=== PATIENT | female | born 1950 | race Caucasian/White ===

== ENCOUNTER → 2016-08-06 | Outpatient (CLI) | payer BC ==
[~2016-08-06] MED LIST: FLM4 PO; LEVO1TAB34 PO; OXYC-57 PO; SYMIN/8045 INH
[2016-08-06 09:43] LABS: BASO % 0.1 %; BASO ABS # 0.01 K/uL (0-0.2); COMPLETE YES; EOS % 1.3 %; HEMATOCRIT 41.2 % (37-47); IG% 0.2 %; LYMPH % 17.9 %; LYMPH ABS # 1.57 K/uL (1.2-3.4); MEAN CELL VOLUME 90.2 fL (80-100); MEAN CORPUSCULAR HEMOGLOBIN 30.4 pg (25-34); MEAN CORPUSCULAR HGB CONC 33.7 g/dl (32-36); MEAN PLATELET VOLUME 11.3 fL (7.4-10.4); MONO % 6.4 %; NEUT % 74.1 %; PLATELET COUNT 204 K/uL (130-400); RED BLOOD COUNT 4.57 M/uL (4.2-5.4); WHITE BLOOD COUNT 8.78 K/uL (4.8-10.8)
--- NOTE | 2016-08-06 10:02 | DIAGNOSTIC IMAGING REPORT ---
KUB CLINICAL HISTORY: N20.0 [id number] nephrocalcinosis COMPARISON STUDY: 11/10/2014 FINDINGS: Stable unchanged left renal nephrocalcinosis. No significant right renal calcifications. Nonobstructive bowel pattern. Unchanging right upper quadrant benign calcification. Unchanging degenerative change of the sacroiliac joints as well as symphysis pubis. IMPRESSION: Stable left renal nephrocalcinosis. Electronically signed by: Fuetnes San M.D. 08/06/2016 10:00 AM Dictated Date/Time: 08/06/2016 9:59 AM
[2016-08-06 10:26] LABS: ALT/SGPT 25 U/L (12-78); AST/SGOT 20 U/L (15-37); BLOOD UREA NITROGEN 11 mg/dl (7-18); CALCIUM 8.8 mg/dl (8.5-10.1); CARBON DIOXIDE 29 mmol/L (21-32); CHLORIDE 107 mmol/L (98-107); CHOLESTEROL 161 mg/dl (0-200); GLUCOSE 93 mg/dl (70-99); MAGNESIUM 2.2 mg/dl (1.8-2.4); POTASSIUM 3.8 mmol/L (3.5-5.1); SODIUM 142 mmol/L (136-145); TRIGLYCERIDES 77 mg/dl (0-150); VERY LOW DENSITY LIPOPROT CALC 15 mg/dl
[2016-08-06 10:35] LABS: ALB/GLOB RATIO 0.9 (0.9-2); ALKALINE PHOSPHATASE 98 U/L (45-117); CHOLESTEROL/HDL RATIO 3.4; HDL CHOLESTEROL 48 mg/dl
== END | disposition home or self-care (01) ==
LOC: C.RAD 08:27
PROVIDERS: ATTEND Nurse Practitioner Family
DX: R53.83 Other fatigue (principal); J44.9 Chronic obstructive pulmonary disease, unspecified; E78.5 Hyperlipidemia, unspecified; E66.01 Morbid (severe) obesity due to excess calories; Z11.59 Encounter for screening for other viral diseases; N20.0 Calculus of kidney

== ENCOUNTER → 2016-10-04 | Outpatient (CLI) | payer BC | END | disposition home or self-care (01) | LOC: C.PAPS 13:01 | PROVIDERS: ATTEND Obstetrics & Gynecology | DX: Z01.419 Encounter for gynecological examination (general) (routine) without abnormal findings (principal) ==

== ENCOUNTER → 2016-10-08 | Outpatient (CLI) | payer BC ==
--- NOTE | 2016-10-08 14:43 | MAMMOGRAPHY REPORT ---
BILATERAL DIGITAL SCREENING MAMMOGRAM WITH CAD: 10/08/2016 CLINICAL HISTORY: Routine screening. Patient has no complaints. TECHNIQUE: Bilateral CC and MLO views were obtained. Current study was also evaluated with a Compute r Aided Detection (CAD) system. COMPARISON: Comparison is made to exams dated: 10/04/2015 mammogram, 09/29/2014 mammogram, 03/02/2014 becca mogram, 01/19/2013 mammogram, 03/17/2012 mammogram, and 03/11/2011 mammogram - [facility] enter. BREAST COMPOSITION: There are scattered areas of fibroglandular density in both breasts. FINDINGS: The parenchymal pattern is similar to prior mammograms. No new suspicious mass, designer architect ural distortion or cluster of suspicious microcalcifications is seen in either breast. IMPRESSION: ACR BI-RADS CATEGORY 2: BENIGN There is no mammographic evidence of malignancy. A 1 year screening mammogram is recommended. The pa tient will receive written notification of the results. Approximately 10% of breast cancers are not detected with mammography. A negative mammographic report should not delay biopsy if a clinically suggestive mass is present. Latasha Bettencourt M.D. ay/:10/08/2016 13:47:52 Call Worker Person: Emily SALAZAR(R)(M), [facility] letter sent: Normal 1/2 BI-RADS Code: ACR BI-RADS Category 2: Benign
== END | disposition home or self-care (01) ==
LOC: C.MAMM 08:37
PROVIDERS: ATTEND Internal Medicine
DX: Z12.31 Encounter for screening mammogram for malignant neoplasm of breast (principal)

== ENCOUNTER 2021-01-29 11:40 | Inpatient (IN) ==
[2021-01-29] MEDS ORDERED: SODIUM CHLORIDE 0.9% 1000ML 1,000 ML IV ONE ×2 (11:59→12:33)
[2021-01-29] MEDS ORDERED: ONDANSETRON INJ 2 MG/ML 2 ML VIAL IV STA (11:59)
[2021-01-29 12:26] LABS: Basophils # (auto) 0.02 K/uL (0-0.2); Basophils % (auto) 0.1 %; Eosinophils # (auto) 0.13 K/uL (0-0.5); Eosinophils % (auto) 0.9 %; Hematocrit (blood only) 38.7 % (37-47); Hemoglobin 12.4 g/dL (12.0-16.0); Immature Granulocytes # (auto) 0.04 K/uL (0.00-0.02); Immature Granulocytes % (auto) 0.3 %; Lymphocytes # (auto) 2.07 K/uL (1.2-3.4); Lymphocytes % (auto) 14.3 %; Mean Corpuscular Hemoglobin 29.9 pg (25-34); Mean Corpuscular Volume 93.3 fL (80-100); Monocytes # (auto) 1.14 K/uL (0.11-0.59); Monocytes % (auto) 7.9 %; Neutrophils # (auto) 11.05 K/uL (1.4-6.5); Neutrophils % (auto) 76.5 %; Platelet Count 202 K/uL (130-400); RDW Coefficient of Variation 14.1 % (11.5-14.5); RDW Standard Deviation 48.2 fL (36.4-46.3); Red Blood Count 4.15 M/uL (4.2-5.4); White Blood Count 14.45 K/uL (4.8-10.8)
[2021-01-29 12:27] LABS: iSTAT Creatinine 3.8 mg/dl (0.6-1.3); iSTAT Hemoglobin 11.9 g/dl (12.0-16.0); iSTAT Ionized Calcium 1.17 mmol/l (1.12-1.32); iSTAT Potassium 4.2 mmol/L (3.3-5.0)
[2021-01-29 12:40] LABS: Partial Thromboplastin Ratio 0.9; Partial Thromboplastin Time 23.1 Seconds (21.0-31.0); Prothrombin Time 10.3 Seconds (9.0-12.0)
--- NOTE | 2021-01-29 12:43 | XRay Report ---
XR chest 1V portable HISTORY: SEPSIS COMPARISON: Chest 10/19/2019. FINDINGS: The lungs are clear. The heart is normal in size. No pleural effusions. No pneumothorax. Ca lcified granuloma within the right lung base remains unchanged. The lungs are mildly hyperexpanded. P rior cholecystectomy. IMPRESSION: No acute process. ACT 112: Negative or not required by law. Electronically signed by: Jam Lewis M.D. 01/29/2021 12:41 PM
[2021-01-29 12:45] LABS: Alanine Aminotransferase 26 U/L (12-78); Albumin Level 2.9 gm/dl (3.4-5.0); Aspartate Aminotransferase 28 U/L (15-37); BUN Creatinine Ratio 16.3 (10-20); Blood Urea Nitrogen 59 mg/dl (7-18); Calcium 9.9 mg/dl (8.5-10.1); Carbon Dioxide 34 mmol/L (21-32); Chloride 93 mmol/L (98-107); Glucose 109 mg/dl (70-99); Magnesium 1.7 mg/dl (1.8-2.4); Potassium 3.9 mmol/L (3.5-5.1); Sodium 133 mmol/L (136-145)
[2021-01-29 12:53] LABS: Albumin Globulin Ratio 0.7 (0.9-2); Alkaline Phosphatase 66 U/L (45-117); Bilirubin,Total 0.5 mg/dl (0.2-1); Globulin 4.3 gm/dl (2.5-4.0); Total Protein 7.2 gm/dl (6.4-8.2); Troponin I 0.159 ng/ml (0-0.045)
[2021-01-29] MEDS ORDERED: PIPERACILLIN/TAZOBACTAM 4.5 GM/120 ML BAG IV ONE (13:14)
--- NOTE | 2021-01-29 13:26 | CT Scan Report ---
CT OF THE ABDOMEN AND PELVIS WITHOUT CONTRAST CLINICAL HISTORY: Abdominal pain, nausea and vomiting. COMPARISON STUDY: CT of the abdomen and pelvis March 10, 2020. TECHNIQUE: Axial images of the abdomen and pelvis were obtained without IV contrast. Images were revi ewed in the axial, sagittal, and coronal planes. Automated exposure control was utilized for the magui dy. A dose lowering technique was utilized adhering to the principles of ALARA. FINDINGS: Visualized portions of the lung bases demonstrate mild multifocal groundglass opacities. Th ere is a calcified granuloma within the right lower lobe. Evaluation of the abdomen and pelvis is sub optimal on this unenhanced exam. A small amount of pneumoperitoneum is noted. In addition, there is e xtensive pneumatosis of numerous small bowel loops. The proximal to mid small bowel is moderately dil ated and fluid-filled. A well-defined transition point is not identified however the findings favor a n underlying small bowel obstruction. There are postoperative findings from a right hemicolectomy. Th e stomach is mildly distended and fluid-filled. There are calcified cannula was within the spleen. Mi ld dilatation of the common bile duct is likely related to cholecystectomy. Small bilateral renal rodger culi measure up to 5 mm. There are no ureteral calculi. There is a cyst within the midpole of the lef t kidney. A hyperdense 1.3 cm lesion within the upper pole of the left kidney favors a hyperdense cys t when correlating with prior contrast enhanced CT. There is extensive colonic diverticulosis without evidence for acute diverticulitis. There is no free fluid. There is no abscess. Nodularity of the le ft adrenal gland is unchanged. No acute fracture or suspicious lesion is identified within visualized skeletal structures. IMPRESSION: 1. Excessive pneumatosis of multiple small bowel loops with small amount of associated pneumoperitone um. Although pneumatosis is nonspecific, the findings are highly suggestive of small bowel ischemia w ith bowel perforation. Surgical consultation is recommended. Moderately dilated fluid-filled proximal to mid small bowel favors an underlying small bowel obstruction although a discrete transition point is not identified. Findings discussed with Dr. Cochran at time of dictation. 2. Mild groundglass opacities within the lower lungs which favor an infectious process or aspiration. 3. Bilateral nephrolithiasis. No ureteral calculi. No hydronephrosis. ACT 112: Negative or not required by law. Electronically signed by: Edson Barreto M.D. 01/29/2021 1:24 PM
--- NOTE | 2021-01-29 13:38 | Anesthesiology Consultation ---
Date of Service January 29, 2021 Assessment & Plan (1) Encounter for pre-operative examination: Consults Requested none History Surgery Operation Date: 01/29/21 12:25 Proposed Procedures p Exploratory Laparotomy possible Bowel Resection - Luis Armando Cabrera MD, FACS Height/Weight Height: 5 ft 1 in Weight: 50.9 kg Allergies Allergy/AdvReac Type Severity Reaction Status Date / Time latex Allergy Unknown _ Verified 01/29/21 13:14 leflunomide AdvReac Unknown Unknown Verified 01/29/21 13:14 Medications Home Medications Medication Instructions Recorded Confirmed Last Taken budesonide-formoterol HFA 160 1 puff INHALATION DIRECTED 10/19/19 01/29/21 03/10/20 mcg-4.5 mcg/actuation aerosol inhaler (Symbicort) hydroxychloroquine 200 mg tablet 200 mg PO DAILY 03/10/20 01/29/21 03/10/20 ergocalciferol (vitamin D2) 1,250 50,000 unit PO .QTUESDAY 01/29/21 01/29/21 Unknown mcg (50,000 unit) capsule prednisone 10 mg tablet 10 mg PO DAILY 01/29/21 01/29/21 Unknown pregabalin 75 mg capsule 75 mg PO DAILY 01/29/21 01/29/21 Unknown Active Medications Generic Name Dose Route Start Last Admin Trade Name Freq PRN Reason Stop Dose Admin Piperacillin Sod/Tazobactam Sod 4.5 gm in 120 mls @ 240 mls/hr 01/29/21 13:14 01/29/21 13:22 Zosyn IV 01/29/21 13:43 240 mls/hr NOW ONE Administration Past Medical History Medical History Chronic obstructive asthma Heart disease Kidney stones Mixed connective tissue disease Past Family History Family History Mother Squamous cell carcinoma Uterine cancer Breast cancer Hypertension Father Squamous cell carcinoma Breast cancer Hypertension Diabetes Cardiac disorder Family/Other Uterine cancer Breast cancer Denies family history of Ovarian cancer Colorectal cancer Past Surgical History Surgical History History of ankle surgery History of bowel resection X 2 AT [facility] [place]/P PERFORATION AFTER COLONOSCOPY History of lithotripsy renal S/P cataract surgery S/P cholecystectomy Social History Smoking Status: Never smoker Hx Alcohol Use: No Physical Exam Vital Signs Last Vital Signs Temp 97.5 F L 01/29/21 11:44 Pulse 104 H 01/29/21 13:12 Resp 16 01/29/21 13:12 BP 99/58 L 01/29/21 13:12 Pulse Ox 90 01/29/21 12:10 Testing Laboratory Results 01/29/21 12:08 01/29/21 12:08 PT 10.3 Seconds (9.0-12.0) 01/29/21 12:08 INR 1.0 (0.9-1.1) 01/29/21 12:08 APTT 23.1 Seconds (21.0-31.0) 01/29/21 12:08 01/29/21 12:15 POC Glucose (other) 111 H Electrocardiogram Date: 01/29/21 Findings: no NSR @ (tachycardic 128) Sinus tachycardia Possible Left atrial enlargement Left axis deviation Inferior infarct , age undetermined Anterior infarct (cited on or before 12-JAN-2020) Abnormal ECG When compared with ECG of 12-JAN-2020 16:17, Premature atrial complexes are no longer Present Inferior infarct is now Present Chest X-Ray Date: 01/29/21 Findings: + NAD Stress Test Date: 08/19/18 Type: DSE Findings: + WNL Resting EF: 60-65 Resting LV Function: normal Valvular Disease: no significant valvular disease
[2021-01-29] MEDS ORDERED: PROPOFOL IV EMULSION 10 MG/ML 20 ML VIAL IV ONE (13:58)
[2021-01-29] MEDS ORDERED: fentaNYL citrate 100 MCG/2 ML VIAL ONE ×2 (13:58→16:48)
[2021-01-29] MEDS ORDERED: LIDOCAINE 2% 2 ML VIAL/AMP(20MG/ML) INFIL ONE (13:58)
[2021-01-29] MEDS ORDERED: GLYCOPYRROLATE 0.2 MG/ML VIAL ONE (13:58)
[2021-01-29] MEDS ORDERED: MIDAZOLAM HCL 1 MG/ML 2ML VIAL ONE (13:58)
[2021-01-29] MEDS ORDERED: SUCCINYLCHOLINE CHLORIDE 20 MG/ML 10 ML VIAL IV ONE (13:58)
[2021-01-29] MEDS ORDERED: ONDANSETRON INJ 2 MG/ML 2 ML VIAL ONE (13:58)
[2021-01-29] MEDS ORDERED: DEXAMETHASONE SOD INJ 4 MG/ML VIAL ONE (13:58)
[2021-01-29] MEDS ORDERED: NEOSTIGMINE METHYLSULFATE 1 MG/ML 10ML VIAL ONE (13:58)
[2021-01-29] MEDS ORDERED: ACETAMINOPHEN 1000 MG/100 ML IV IV ONE ×2 (13:59→16:38)
[2021-01-29] MEDS ORDERED: SUGAMMADEX SODIUM 200 MG/2 ML VIAL IV ONE (13:59)
--- NOTE | 2021-01-29 14:07 | History & Physical Report ---
Date of Service January 29, 2021 Assessment & Plan (1) Bowel perforation: Plan: Patient with evidence of bowel perforation and sepsis Significantly tachycardic and hypotensive Severe abdominal pain with CT findings of pneumatosis and perforation Elevated white blood count with significantly elevated BUN and creatinine indicating acute renal failure I do believe the patient requires emergency operation with possible bowel resection and possible enterostomy versus colostomy She will require admission to the intensive care unit which has been discussed with their team I have also discussed this with the patient's sister Leslie History of Present Illness Primary Care Provider: Neo Barajas MD 70-year-old female presenting to the emergency room with diffuse abdominal pain significantly tachycardic hypotensive with her blood pressure being 78/54 increased lactic acid BUN and creatinine 59/3.6 She underwent CAT scan showing significantly dilated small bowel with diffuse pneumatosis which apparently she has had somewhat in the past but also with evidence of free air Her white blood cell count is 14.4 with a lactic acid of 3.5 Patient has had prior colonoscopy back in appears to be September 2019 with perforation subsequent operation right colectomy She then developed 1 to 2 months later abdominal distention with dilated small bowel and pneumatosis with exploratory laparotomy All of this was done at [place] -at that point-they did explore her abdomen but did not find any specific obstruction or perforation She did have problems the GI motility with chronic dilated small bowel requiring TPN for an extended period of time Allergies Allergy/AdvReac Type Severity Reaction Status Date / Time latex Allergy Unknown _ Verified 01/29/21 13:14 leflunomide AdvReac Unknown Unknown Verified 01/29/21 13:14 Home Medications Medication Instructions Recorded Confirmed Type budesonide-formoterol HFA 160 1 puff INHALATION DIRECTED 10/19/19 01/29/21 History mcg-4.5 mcg/actuation aerosol inhaler (Symbicort) hydroxychloroquine 200 mg tablet 200 mg PO DAILY 03/10/20 01/29/21 History ergocalciferol (vitamin D2) 1,250 50,000 unit PO .QTUES01/29/21 01/29/21 History mcg (50,000 unit) capsule prednisone 10 mg tablet 10 mg PO DAILY 01/29/21 01/29/21 History pregabalin 75 mg capsule 75 mg PO DAILY 01/29/21 01/29/21 History Past Med/Surg History Medical History Chronic obstructive asthma Heart disease Kidney stones Mixed connective tissue disease Surgical History History of ankle surgery History of bowel resection X 2 AT [facility] [place] PERFORATION AFTER COLONOSCOPY History of lithotripsy renal S/P cataract surgery S/P cholecystectomy Family History Mother Squamous cell carcinoma Uterine cancer Breast cancer Hypertension Father Squamous cell carcinoma Breast cancer Hypertension Diabetes Cardiac disorder Family/Other Uterine cancer Breast cancer Denies family history of Ovarian cancer Colorectal cancer Social History (Updated 01/18/21 @ 11:18 by Ally Cannon) Smoking Status: Never smoker Hx Alcohol Use: No Preferred Language: Georgian Feels Safe at Home: Yes Review of Systems All systems reviewed & are unremarkable except as noted in HPI & below Physical Exam Constitutional: + acute distress and + ill appearing Eyes: + anicteric sclerae Respiratory: normal respiratory effort; no respiratory distress and no labored breathing Cardiovascular: Rate/Rhythm: + tachycardic Gastrointestinal (Abdomen): Inspection/Auscultation: + abdomen distended Patient shows moderate distention with diffuse abdominal pain especially to deep palpation Evidence of peritoneal irritation Musculoskeletal: Head/Neck/Chest: head atraumatic Skin: Patient shows some areas of mottling in her extremities as well as very cool extremities Neurologic: awake Psychiatric: Orientation: alert Results & Data ([facility]) Vital Signs (Past 12 Hours) Vital Signs Temp Pulse Resp BP BP Pulse Ox 01/29/21 13:30 127 H 22 101/58 L 01/29/21 13:12 104 H 16 99/58 L 01/29/21 12:47 97/53 L 01/29/21 12:10 108 H 19 78/54 L 90 01/29/21 11:59 113 H 24 93 01/29/21 11:55 124 H 21 84/44 L 94 01/29/21 11:44 36.4 C L 74 18 84/49 L 98 Laboratory Results I have reviewed her laboratories Diagnostic Findings I have reviewed her CAT scan-this shows evidence of significantly dilated small bowel with pneumatosis and pneumoperitoneum
--- NOTE | 2021-01-29 14:25 | Critical Care Consultation ---
Date of Consultation January 29, 2021 Assessment & Plan (1) Bowel perforation: Reason Critically Ill: 70 year old female w/ PMHx of mixed connective tissue disease, right hemicolectomy (colonoscopy in 09/2019 led to perforation of proximal colon), and subsequent adhesions, pneumatosis intestinalis, and partial SBO who presents w/ multiple episodes of nausea and vomiting x 1 day. She presents to the ICU because CT abd showed possible small bowel perforation. Patient is currently in the OR emergently for ex-lap. Neuro - [facility] ICU: negative Cardiac - shock, mild hypovolemic vs septic Low MAP of 57 (87/44) at ED admission, since improved; no pressors required Tachycardic to 100s-120s at ED arrival, since resolved Slight leukocytosis 14.45 and elevated lactate 3.5 supports sepsis. Source may be from bowel obstruction. Resuscitated w/ 2L of NSS. IV Zosyn for empiric GI prophylaxis. elevated troponin most likely demand ischemia. trend trop q6h until peaked ecg reviewed; poor R wave progression is not new from prior ecg. Slight leftward shift of axis. Respiratory - satting well on 2L nasal cannula asthma continue home Symbicort GI - NPO while awaiting OR Small bowel obstruction vs ischemic bowel vs bowel perforation CT abd: "Excessive pneumatosis of multiple small bowel loops with small amount of associated pneumoperitoneum. Although pneumatosis is nonspecific, the findings are highly suggestive of small bowel ischemia with bowel perforation." OR for exlap. Update: No evidence of intra-abd infection or bowel perforation. Adhesions lysed. RENAL/LYTES - Slight hyponatremia 133 at ED arrival. Follow BMP Replace lytes as needed. acute kidney injury May be 2/2 ATN from transient shock state. Also considered prerenal azotemia and lower suspicion for obstruction. Defer FeNa and renal US at this time. Gentle hydration. Follow BMP. - [facility] - No known hx of DM or thyroid disease. ICU hyperglycemia protocol. mixed connective tissue disease, chronic Chronic hydroxychloroquine 200 mg PO daily, prednisone 10 mg PO daily, and Lyrica 75 mg PO daily for mixed connective tissue disease. HEME - Stable H/H. Follow CBC ID - Afebrile. Follow CBC and clinically. Continue empiric Zosyn for GI ppx. LINES/IV ACCESS - PIVs intact. DVT PROPHYLAXIS - SCDs. Lovenox ppx daily, starting tonight (2) Mixed connective tissue disease: (3) Restrictive lung disease: (4) Chronic obstructive asthma: Supervising Physician Co-Signing Physician Notes Dr. Castillo was resident physician during care of patient. I separately evaluated patient for huston portions of the history and the exam. I was present during the critical portion of medical decision making, and I discussed the case with the resident. I generally agree with the findings and plan. Patient seen in the PACU. Anticipate routine care NG to suction at this point, patient was mildly nauseated but hemodynamics appear reassuring. Patient has TAB secondary to profound dehydration we will continue antibiotics at this point per general surgery. Patient critically ill I have personally spent 45 minutes of critical care time in the direct management of this patient. This is a life/limb threatening event. This includes time spent evaluating patient, direct bedside care, chart review, placing orders, interpretation of diagnostic studies, discussion with consultants, patient, and/or family members regarding treatment decisions, as well as other required patient management activities. This time is exclusive of all separately billable procedures, and teaching time and separate from and in addition to any other critical care service time. History of Present Illness Reason for Consultation: possible bowel perforation Attending Physician: Dr. Luis Armando Cabrera History of Present Illness Ashia Ca is a 70 y/o female w/ PMHx of mixed connective tissue disease, multiple abdominal surgeries (including a right hemicolectomy, recurrent SBO, pneumatosis intestinalis and asthma who presents w/ intractable nausea and vomiting, epigastric burning/discomfort and some fatigue since yesterday. She presented w/ sepsis and likely possible small bowel per CT imaging. She is undergoing emergency ex-lap via general surgery. She did not take her AM medications this morning. She is unsure if she had similar prior symptoms as she has had nausea and vomiting occasionally. She tolerated a small amount of oral intake this AM. In the ED, she was hypotensive to 84/44 and 78/54 and was given 2 L of NSS boluses, no pressors required. She was examined by me prior to going to OR for ex-lap. Denies substance use. Patient's sister was at bedside and helped clarify some of the history. Patient had an exlap at [place] on 01/13/20 that revealed adhesions at the time. Allergies Allergy/AdvReac Type Severity Reaction Status Date / Time latex Allergy Unknown _ Verified 01/29/21 13:14 leflunomide AdvReac Unknown Unknown Verified 01/29/21 13:14 Home Medications Medication Instructions Recorded Confirmed Type budesonide-formoterol HFA 160 1 puff INHALATION DIRECTED 10/19/19 01/29/21 History mcg-4.5 mcg/actuation aerosol inhaler (Symbicort) hydroxychloroquine 200 mg tablet 200 mg PO DAILY 03/10/20 01/29/21 History ergocalciferol (vitamin D2) 1,250 50,000 unit PO .QTUESDAY 01/29/21 01/29/21 History mcg (50,000 unit) capsule prednisone 10 mg tablet 10 mg PO DAILY 01/29/21 01/29/21 History pregabalin 75 mg capsule 75 mg PO DAILY 01/29/21 01/29/21 History Patient History Medical History Chronic obstructive asthma Heart disease Kidney stones Mixed connective tissue disease Surgical History History of ankle surgery History of bowel resection X 2 AT [facility] [place] S/P PERFORATION AFTER COLONOSCOPY History of laparotomy (01/29/21) Exploratory laparotomy with lysis of adhesions. Dr. Cabrera 01/29/2021 History of lithotripsy renal S/P cataract surgery S/P cholecystectomy Family History Mother Squamous cell carcinoma Uterine cancer Breast cancer Hypertension Father Squamous cell carcinoma Breast cancer Hypertension Diabetes Cardiac disorder Family/Other Uterine cancer Breast cancer Denies family history of Ovarian cancer Colorectal cancer Social History Smoking Status: Former smoker Smoking End Date: 1990; Hx Alcohol Use: No Hx Substance Use: No Preferred Language: Yakut Communication Ability: Effective X Ray Nurse Required: No Beliefs That Will Affect Care: None marital status: Current Living Situation: Alone Other Information That Helps Us Care for You: No Feels Safe at Home: Yes Safety Concerns: Feels Safe At This Time Assistive Devices: Cane, Glasses and Walker Review of Systems Review of Systems: All systems reviewed & are unremarkable except as noted in HPI & below Constitutional: Denies fever, chills Cardiovascular: Denies chest pain Respiratory: Denies shortness of breath Gastrointestinal: Denies constipation, diarrhea. See HPI Genitourinary: Denies urinary symptoms including dysuria Musculoskeletal: Denies weakness, muscle aches/pain, joint aches/pain Neurological: Denies headache, numbness, tingling, focal weakness Physical Exam Physical Exam: General: Grossly A&O. NAD. Cooperative. Conversive. HEENT: Atraumatic, normocephalic. EOMI. No carotid bruits. Pulm: CTAB anteriorly. -wheezes, -rales, -rhonchi. No respiratory distress. Cardiac: RRR, +2/6 systolic murmur. Very slight LE edema. DP pulses intact. Slightly cooler extremities. Abdominal: Nondistended, soft. Mild discomfort to palpation epigastrium. No guarding. Msk: Frail habitus. + muscle atrophy. Integ: Faint ecchymoses on bilateral shins. Results & Data Results & Data ([facility]) Vital Signs (Past 12 Hours) Vital Signs Temp Pulse Resp BP BP Pulse Ox 01/29/21 13:30 127 H 22 101/58 L 01/29/21 13:12 104 H 16 99/58 L 01/29/21 12:47 97/53 L 01/29/21 12:10 108 H 19 78/54 L 90 01/29/21 11:59 113 H 24 93 01/29/21 11:55 124 H 21 84/44 L 94 01/29/21 11:44 36.4 C L 74 18 84/49 L 98 Laboratory Results wbc 14.45. Hb 12.4. coags appropriate. Na 133. Cr 3.64, compared to 1.17 in 06/2020. Lactate 3.5. Mag 1.7. trop 0.159. procalc 0.51. covid neg. BC pending. Cardiac Enzymes 01/29/21 Range/Units 12:08 AST 28 (15-37) U/L Troponin I 0.159 H* (0-0.045) ng/ml Coagulation 01/29/21 Range/Units 12:08 PT 10.3 (9.0-12.0) Seconds APTT 23.1 (21.0-31.0) Seconds CBC 01/29/21 Range/Units 12:08 WBC 14.45 H (4.8-10.8) K/uL RBC 4.15 L (4.2-5.4) M/uL Hgb 12.4 (12.0-16.0) g/dL Hct 38.7 (37-47) % Plt Count 202 (130-400) K/uL Neut # (Auto) 11.05 H (1.4-6.5) K/uL Lymph # (Auto) 2.07 (1.2-3.4) K/uL [place] # (Auto) 1.14 H (0.11-0.59) K/uL Eos # (Auto) 0.13 (0-0.5) K/uL Baso # (Auto) 0.02 (0-0.2) K/uL Comprehensive Metabolic Panel 01/29/21 Range/Units 12:08 Sodium 133 L (136-145) mmol/L Potassium 3.9 (3.5-5.1) mmol/L Chloride 93 L (98-107) mmol/L Carbon Dioxide 34 H (21-32) mmol/L BUN 59 H (7-18) mg/dl Creatinine 3.64 H (0.6-1.2) mg/dl Glucose 109 H (70-99) mg/dl Calcium 9.9 (8.5-10.1) mg/dl AST 28 (15-37) U/L ALT 26 (12-78) U/L Alkaline Phosphatase 66 (45-117) U/L Total Protein 7.2 (6.4-8.2) gm/dl Albumin 2.9 L (3.4-5.0) gm/dl Intake and Output 01/29/21 01/29/21 01/29/21 06:59 14:59 22:59 Other: Weight 50.9 kg 50.9 kg Weight Measurement Method Built in [facility] Patient Weight 01/30/21 06:59 Weight 50.9 kg Diagnostic Findings Chest X-Ray 01/29/21 11:59 XR chest 1V portable HISTORY: SEPSIS COMPARISON: Chest 10/19/2019. FINDINGS: The lungs are clear. The heart is normal in size. No pleural effusions. No pneumothorax. Calcified granuloma within the right lung base remains unchanged. The lungs are mildly hyperexpanded. Prior cholecystectomy. IMPRESSION: No acute process. ACT 112: Negative or not required by law. Electronically signed by: Jam Lewis M.D. 01/29/2021 12:41 PM Abdomen/Pelvis CT 01/29/21 12:52 CT OF THE ABDOMEN AND PELVIS WITHOUT CONTRAST CLINICAL HISTORY: Abdominal pain, nausea and vomiting. COMPARISON STUDY: CT of the abdomen and pelvis March 10, 2020. TECHNIQUE: Axial images of the abdomen and pelvis were obtained without IV contrast. Images were reviewed in the axial, sagittal, and coronal planes. Automated exposure control was utilized for the study. A dose lowering technique was utilized adhering to the principles of ALARA. FINDINGS: Visualized portions of the lung bases demonstrate mild multifocal groundglass opacities. There is a calcified granuloma within the right lower lobe. Evaluation of the abdomen and pelvis is suboptimal on this unenhanced exam. A small amount of pneumoperitoneum is noted. In addition, there is extensive pneumatosis of numerous small bowel loops. The proximal to mid small bowel is moderately dilated and fluid-filled. A well-defined transition point is not identified however the findings favor an underlying small bowel obstruction. There are postoperative findings from a right hemicolectomy. The stomach is mildly distended and fluid-filled. There are calcified cannula was within the spleen. Mild dilatation of the common bile duct is likely related to cholecystectomy. Small bilateral renal calculi measure up to 5 mm. There are no ureteral calculi. There is a cyst within the midpole of the left kidney. A hyperdense 1.3 cm lesion within the upper pole of the left kidney favors a hyperdense cyst when correlating with prior contrast enhanced CT. There is extensive colonic diverticulosis without evidence for acute diverticulitis. There is no free fluid. There is no abscess. Nodularity of the left adrenal gland is unchanged. No acute fracture or suspicious lesion is identified within visualized skeletal structures. IMPRESSION: 1. Excessive pneumatosis of multiple small bowel loops with small amount of associated pneumoperitoneum. Although pneumatosis is nonspecific, the findings are highly suggestive of small bowel ischemia with bowel perforation. Surgical consultation is recommended. Moderately dilated fluid-filled proximal to mid small bowel favors an underlying small bowel obstruction although a discrete transition point is not identified. Findings discussed with Dr. Cochran at time of dictation. 2. Mild groundglass opacities within the lower lungs which favor an infectious process or aspiration. 3. Bilateral nephrolithiasis. No ureteral calculi. No hydronephrosis. ACT 112: Negative or not required by law. Electronically signed by: Edson Barreto M.D. 01/29/2021 1:24 PM ECG Additional Comments: Vent. Rate : 128 BPM Atrial Rate : 128 BPM P-R Int : 158 ms QRS Dur : 084 ms QT Int : 292 ms P-R-T Axes : 087 -58 079 degrees QTc Int : 426 ms Sinus tachycardia Possible Left atrial enlargement Left axis deviation Poor R wave progression, consider anterior PR vs. lead placement vs. LVH Abnormal ECG When compared with ECG of 12-JAN-2020 16:17, Premature atrial complexes are no longer Present Confirmed by Orestes Gillespie ([id number]) on 01/29/2021 2:37:50 PM Resident Activity Tracking Resident Involvement: Resident Care Provided Care Provided: Adult Hospital Medicine
--- NOTE | 2021-01-29 14:38 | Electrocardiogram Report ---
Test Reason : Blood Pressure : / mmHG Vent. Rate : 128 BPM Atrial Rate : 128 BPM P-R Int : 158 ms QRS Dur : 084 ms QT Int : 292 ms P-R-T Axes : 087 -58 079 degrees QTc Int : 426 ms Sinus tachycardia Possible Left atrial enlargement Left axis deviation Poor R wave progression, consider anterior DE vs. lead placement vs. LVH Abnormal ECG When compared with ECG of 12-JAN-2020 16:17, Premature atrial complexes are no longer Present Confirmed by Orestes Gillespie ([id number]) on 01/29/2021 2:37:50 PM Referred By: ED Confirmed By:Messi Gillespie
[2021-01-29] MEDS ORDERED: ONDANSETRON INJ 2 MG/ML 2 ML VIAL IV PRN ×2 (15:09→17:36)
[2021-01-29] MEDS ORDERED: fentaNYL citrate 100 MCG/2 ML VIAL IV PRN (15:09)
[2021-01-29] MEDS ORDERED: PROMETHAZINE HCL 12.5 MG in SODIUM CHLORIDE 0.9% 50 ML IV PRN ×2 (15:09→17:36)
[2021-01-29] MEDS ORDERED: ePHEDrine sulfate 50 MG/ML AMP IV PRN (15:09)
[2021-01-29] MEDS ORDERED: ATROPINE SULFATE 0.1 MG/ML 10ML SYR IV PRN (15:09)
[2021-01-29] MEDS ORDERED: HYDROmorphone INJ 2 MG/ML SYR/VIAL IV PRN (15:09)
[2021-01-29] MEDS ORDERED: METOCLOPRAMIDE HCL INJ 5 MG/ML 2 ML VIAL IV PRN (15:09)
--- NOTE | 2021-01-29 16:02 | Post Operative Brief Note ---
PG Immediate Post Op with CF Date of Surgery January 29, 2021 Pre & Post Diagnosis Operation Date: 01/29/21 12:25 Pre-Op Diagnosis: Bowel perforation Postop diagnosis- Chronic small bowel obstruction, chronic pneumatosis, pelvic adhesions/ad hesive bands I identified the patient and participated in the time-out.: Yes Procedure Operation Date: 01/29/21 12:25 Actual Procedures p Exploratory Laparotomy with Lysis of Adhesion(Not Applicable) - Luis Armando Cabrera MD, FACS Surgeon Luis Armando Cabrera MD, FACS Acid Blower Radha Valdovinos Estimated Blood Loss 10 Findings Consistent with Post-Op Diagnosis Patient had chronically thickened dilated proximal to mid/distal small bowel involving the entire jejunum Much of which was involved with chronic pneumatosis and scarring She had several bands from the omentum and mesentery within the pelvis which may have been adding to the obstruction She had no evidence of perforation or intra-abdominal infection
--- NOTE | 2021-01-29 17:04 | Anesthesiology Progress Note ---
Date of Service January 29, 2021 Anesthesia Post Procedure Vital Signs Vital Signs: Temp Pulse Pulse Resp BP BP Pulse Ox 01/29/21 16:45 85 18 105/51 L 100 01/29/21 16:35 82 17 114/68 98 01/29/21 16:25 90 16 119/61 100 01/29/21 16:15 36.3 C L 80 16 128/67 100 01/29/21 14:37 36.7 C 100 H 20 101/63 95 01/29/21 14:28 36.9 C 122 H 24 108/66 01/29/21 13:30 127 H 22 101/58 L 01/29/21 13:12 104 H 16 99/58 L 01/29/21 12:47 97/53 L 01/29/21 12:10 108 H 19 78/54 L 90 01/29/21 11:59 113 H 24 93 01/29/21 11:55 124 H 21 84/44 L 94 01/29/21 11:44 36.4 C L 74 18 84/49 L 98 Pain Intensity Abdomen: Pain Intensity: 7 Transfer of Care Handoff Completed per policy Notes Mental Status: alert / awake / arousable and participated in evaluation Patient Amnestic to Procedure: Yes Nausea / Vomiting: adequately controlled Pain: adequately controlled Airway Patency, RR, SpO2: stable & adequate BP & HR: stable & adequate Hydration State: stable & adequate Anesthetic Complications: no major complications apparent
[2021-01-29] MEDS ORDERED: HYDROmorphone INJ 1 MG/ML SYRINGE IV PRN (17:36)
[2021-01-29] MEDS ORDERED: ACETAMINOPHEN 1,000 MG/100 ML VIAL IV ONE (17:36)
[2021-01-29] MEDS ORDERED: ICU PROTOCOL FOR HYPERGLYCEMIA PRN ×2 (17:43→20:00)
[2021-01-29] MEDS ORDERED: NORMOSOL-R 1,000 ML IV SCH (17:45)
--- NOTE | 2021-01-29 18:03 | Operative Report (OR) ---
DATE OF PROCEDURE: 01/29/2021 NAME OF OPERATION: Exploratory laparotomy with lysis of adhesions. PREOPERATIVE DIAGNOSES: Small bowel obstruction with perforation, small bowel pneumatosis, possible ischemia. POSTOPERATIVE DIAGNOSES: Chronically dilated small bowel with chronic pneumatosis and scarring with pelvic adhesive bands, no evidence of perforation, no evidence of ischemia. STAFF SURGEON: Luis Armando Cabrera MD. INDEPENDENT VIDEO PRODUCER: Francisco Valdovinos PA-C. ANESTHESIA: General. DESCRIPTION OF PROCEDURE: The patient was brought in the operating room from the Emergency Room with a suspected intraabdominal sepsis with pneumoperitoneum and severe pneumatosis, possible ischemia. Her abdomen was prepped and draped in the usual fashion. The Seymour catheter had to be replaced with recovery of some clear urine. NG tube was placed with recovery quickly of 1 liter of bilious cloudy fluid. Incision was made in the midline, carrying dissection down into the abdomen. We did not enco unter significant adhesions. The small bowel was identified at the ligament of Treitz. It was significantly dilated from chronic disease and thickened and then when it was traced distally, almost the entire jejunum and likely part of the ileum were involved with chronic thickening, dilated bowel and pneumatosis. There was no spe cific transition point, although tracing the small bowel to the pelvis, we did encounter several adhe sive bands from the mesentery including the omentum. These were taken down. My thought was that the se could have caused at least a partial obstruction making her chronic obstructive symptoms worse. W e did not find a perforation. We did not find any soilage. There was no evidence of any ischemia. There was no way to resect the diseased bowel because of the length of the bowel involved. At this point, the small bowel was replaced back into the abdomen. It was irrigated with warm antibi otic solution. The diseased part of the bowel did show some peristalsis. We closed the fascia using both running and interrupted #1 PDS suture. The subcutaneous tissue was loosely reapproximated usin g 2-0 plain suture. The skin was reapproximated loosely using ninoska with quarter-inch Nu Gauze padmini benjamin between the ninoska. NG tube was left in place. There was a total 1200 mL of bilious cloudy flu id removed. Seymour catheter was left in place. My medical library assistant helped with prepping and draping the abd ominal part of the operation and closure of the wound. Job ID: [id number]
[2021-01-29 18:13] LABS: Basophils # (auto) 0.01 K/uL (0-0.2); Basophils % (auto) 0.1 %; Eosinophils # (auto) 0.04 K/uL (0-0.5); Eosinophils % (auto) 0.4 %; Hematocrit (blood only) 33.4 % (37-47); Hemoglobin 10.9 g/dL (12.0-16.0); Immature Granulocytes # (auto) 0.02 K/uL (0.00-0.02); Immature Granulocytes % (auto) 0.2 %; Lymphocytes % (auto) 6.8 %; Mean Corpuscular Hgb Conc 32.6 g/dL (32-36); Mean Platelet Volume 11.5 fL (7.4-10.4); Monocytes # (auto) 0.42 K/uL (0.11-0.59); Monocytes % (auto) 4.1 %; Neutrophils # (auto) 9.05 K/uL (1.4-6.5); Neutrophils % (auto) 88.4 %; Platelet Count 145 K/uL (130-400); RDW Coefficient of Variation 14.3 % (11.5-14.5); RDW Standard Deviation 48.4 fL (36.4-46.3); Red Blood Count 3.63 M/uL (4.2-5.4); White Blood Count 10.24 K/uL (4.8-10.8)
[2021-01-29 18:31] LABS: Albumin Level 2.2 gm/dl (3.4-5.0); BUN Creatinine Ratio 17.4 (10-20); Calcium 8.2 mg/dl (8.5-10.1); Creatinine Clr Calc Pharmacy 12.9 ml/min; Est GFR (African American) 16.9 ml/min; Est GFR (Non-African American) 14.6 ml/min; Magnesium 1.7 mg/dl (1.8-2.4); Potassium 4.1 mmol/L (3.5-5.1)
[2021-01-29] MEDS: LACTATED RINGER'S 1,000 ML IV SCH (18:31)
[2021-01-29 18:33] LABS: Albumin Globulin Ratio 0.6 (0.9-2); Bilirubin,Total 0.4 mg/dl (0.2-1); Globulin 3.6 gm/dl (2.5-4.0); Phosphorus 4.2 mg/dl (2.5-4.9); Total Protein 5.8 gm/dl (6.4-8.2)
[2021-01-29 20:31] LABS: Appearance Urine Cloudy (Clear); Bacteria Urine Automated Negative (Negative); Bilirubin Urine Negative (Negative); Blood Urine Negative (Negative); Color Urine Dark Yellow; Epithelial Cell Urine Auto >30 /lpf (0-5); Glucose Urine UA Negative (Negative); Ketones Urine Trace (Negative); Leukocyte Esterase Urine 1+ (Negative); Nitrite Urine Negative (Negative); Protein Urine 2+ (Negative); Specific Gravity Urine 1.022 (1.000-1.030); Urobilinogen Urine Negative (Negative)
--- NOTE | 2021-01-29 20:33 | Emergency Department Note ---
History of Present Illness General Chief complaint: Vomiting Stated complaint: VOMITING,DIARRHEA,NAUSEA,WEAK Time Seen by Provider: 01/29/21 11:51 History of Present Illness Provider complaint: Nausea vomiting abdominal pain weakness Onset (ago): day(s) 3 Location: abdomen Radiation: non-radiation Severity: moderate Relieved By: + none Exacerbated By: + none Associated symptoms: + nausea/vomiting and + weakness; no chest pain, no cough, no fever/chills, no headaches or no shortness of breath 70-year-old female presents emergency department for nausea vomiting abdominal pain and weakness. Patient states her symptoms began 3 days ago. Patient states that she has had decreased bowel movements, decreased urination, and decreased flatulence. Patient states she has a history of a colectomy after she had a perforation status post colonoscopy. Home Medications Medication Instructions Recorded Confirmed Type budesonide-formoterol HFA 160 1 puff INHALATION DIRECTED 10/19/19 01/29/21 History mcg-4.5 mcg/actuation aerosol inhaler (Symbicort) hydroxychloroquine 200 mg tablet 200 mg PO DAILY 03/10/20 01/29/21 History ergocalciferol (vitamin D2) 1,250 50,000 unit PO .QTUESDAY 01/29/21 01/29/21 History mcg (50,000 unit) capsule prednisone 10 mg tablet 10 mg PO DAILY 01/29/21 01/29/21 History pregabalin 75 mg capsule 75 mg PO DAILY 01/29/21 01/29/21 History Allergies Allergy/AdvReac Type Severity Reaction Status Date / Time latex Allergy Unknown _ Verified 01/29/21 13:14 leflunomide AdvReac Unknown Unknown Verified 01/29/21 13:14 Past Med/Surg History Medical History Chronic obstructive asthma Heart disease Kidney stones Mixed connective tissue disease Surgical History History of ankle surgery [place] [facility] [place] History of lithotripsy renal S/P cataract surgery S/P cholecystectomy Family History Mother Squamous cell carcinoma Uterine cancer Breast cancer Hypertension Father Squamous cell carcinoma Breast cancer Hypertension Diabetes Cardiac disorder Family/Other Uterine cancer Breast cancer Denies family history of Ovarian cancer Colorectal cancer Social History Smoking Status: Former smoker Smoking End Date: 1990; Hx Alcohol Use: No Hx Substance Use: No Preferred Language: Kinyarwanda Communication Ability: Effective Tennis Coach Required: No Beliefs That Will Affect Care: None Current Living Situation: Alone Other Information That Helps Us Care for You: No Feels Safe at Home: Yes Safety Concerns: Feels Safe At This Time Assistive Devices: Cane, Glasses and Walker Review of Systems A total of 10 systems reviewed and were otherwise negative Physical Exam Vital Signs Vital Signs - 24 hr 01/29/21 11:44 01/29/21 11:55 01/29/21 11:59 Temperature 36.4 C L Temperature Source Oral Pulse Rate 74 124 H 113 H Pulse Rate [Apical] Pulse Rate from SpO2 Sensor 125 H Pulse Rhythm Regular Pulse Rhythm [Apical] Pulse Strength [Apical] Respiratory Rate 18 21 24 Respiratory Effort / Characteristics Non-Labored Spontaneous Non-Labored Respiratory Depth Normal Respiratory Pattern Blood Pressure 84/49 L 84/44 L Blood Pressure [Right Arm] Blood Pressure Mean 60 57 Blood Pressure Mean [Right Arm] Blood Pressure Position [Right Arm] Pulse Oximetry 98 94 93 Oxygen Delivery Method Room Air Room Air Oxygen Flow Rate Sepsis Recent Fever Within 48 Hours No Sepsis New/Unexplained Change in Mental Status No Sepsis Action Taken by Nursing No Action Required 01/29/21 12:10 01/29/21 12:47 01/29/21 13:12 Temperature Temperature Source Pulse Rate 108 H 104 H Pulse Rate [Apical] Pulse Rate from SpO2 Sensor 108 H Pulse Rhythm Pulse Rhythm [Apical] Pulse Strength [Apical] Respiratory Rate 19 16 Respiratory Effort / Characteristics Respiratory Depth Respiratory Pattern Blood Pressure 78/54 L 99/58 L Blood Pressure [Right Arm] 97/53 L Blood Pressure Mean 62 71 Blood Pressure Mean [Right Arm] 67 Blood Pressure Position [Right Arm] Lying Pulse Oximetry 90 Oxygen Delivery Method Oxygen Flow Rate Sepsis Recent Fever Within 48 Hours Sepsis New/Unexplained Change in Mental Status Sepsis Action Taken by Nursing 01/29/21 13:30 01/29/21 14:28 01/29/21 14:37 Temperature 36.9 C 36.7 C Temperature Source Oral Oral Pulse Rate 127 H 122 H Pulse Rate [Apical] 100 H Pulse Rate from SpO2 Sensor Pulse Rhythm Pulse Rhythm [Apical] Regular Pulse Strength [Apical] Normal Respiratory Rate 22 24 20 Respiratory Effort / Characteristics Non-Labored Spontaneous Respiratory Depth Normal Respiratory Pattern Regular Blood Pressure 101/58 L 108/66 Blood Pressure [Right Arm] 101/63 Blood Pressure Mean 72 Blood Pressure Mean [Right Arm] 75 Blood Pressure Position [Right Arm] Semi-fowlers Pulse Oximetry 95 Oxygen Delivery Method Room Air Room Air Oxygen Flow Rate Sepsis Recent Fever Within 48 Hours Sepsis New/Unexplained Change in Mental Status Sepsis Action Taken by Nursing 01/29/21 16:15 01/29/21 16:25 01/29/21 16:35 Temperature 36.3 C L Temperature Source Temporal Artery Scan Pulse Rate Pulse Rate [Apical] 80 90 82 Pulse Rate from SpO2 Sensor Pulse Rhythm Pulse Rhythm [Apical] Regular Regular Regular Pulse Strength [Apical] Respiratory Rate 16 16 17 Respiratory Effort / Characteristics Non-Labored Spontaneous Non-Labored Spontaneous Non-Labored Spontaneous Respiratory Depth Normal Normal Normal Respiratory Pattern Regular Regular Regular Blood Pressure Blood Pressure [Right Arm] 128/67 119/61 114/68 Blood Pressure Mean Blood Pressure Mean [Right Arm] 87 80 83 Blood Pressure Position [Right Arm] Semi-fowlers Semi-fowlers Semi-fowlers Pulse Oximetry 100 100 98 Oxygen Delivery Method Nasal Cannula Nasal Cannula Nasal Cannula Oxygen Flow Rate 3 3 2 Sepsis Recent Fever Within 48 Hours Sepsis New/Unexplained Change in Mental Status Sepsis Action Taken by Nursing 01/29/21 16:45 01/29/21 16:55 01/29/21 17:05 Temperature 36.5 C Temperature Source Temporal Artery Scan Pulse Rate Pulse Rate [Apical] 85 87 83 Pulse Rate from SpO2 Sensor Pulse Rhythm Pulse Rhythm [Apical] Regular Regular Regular Pulse Strength [Apical] Respiratory Rate 18 20 17 Respiratory Effort / Characteristics Non-Labored Spontaneous Non-Labored Spontaneous Non-Labored Spontaneous Respiratory Depth Normal Normal Normal Respiratory Pattern Regular Regular Regular Blood Pressure Blood Pressure [Right Arm] 105/51 L 112/65 105/58 L Blood Pressure Mean Blood Pressure Mean [Right Arm] 69 80 73 Blood Pressure Position [Right Arm] Semi-fowlers Semi-fowlers Semi-fowlers Pulse Oximetry 100 100 100 Oxygen Delivery Method Nasal Cannula Nasal Cannula Nasal Cannula Oxygen Flow Rate 2 2 2 Sepsis Recent Fever Within 48 Hours Sepsis New/Unexplained Change in Mental Status Sepsis Action Taken by Nursing 01/29/21 17:15 01/29/21 17:25 Temperature 36.4 C L Temperature Source Oral Pulse Rate Pulse Rate [Apical] 82 83 Pulse Rate from SpO2 Sensor Pulse Rhythm Pulse Rhythm [Apical] Regular Regular Pulse Strength [Apical] Normal Respiratory Rate 16 15 Respiratory Effort / Characteristics Non-Labored Spontaneous Non-Labored Spontaneous Respiratory Depth Normal Normal Respiratory Pattern Regular Blood Pressure Blood Pressure [Right Arm] 108/58 L 104/61 Blood Pressure Mean Blood Pressure Mean [Right Arm] 74 75 Blood Pressure Position [Right Arm] Semi-fowlers Pulse Oximetry 100 96 Oxygen Delivery Method Nasal Cannula Nasal Cannula Oxygen Flow Rate 2 2 Sepsis Recent Fever Within 48 Hours Sepsis New/Unexplained Change in Mental Status Sepsis Action Taken by Nursing Physical Exam HENT: Exam performed. -Head: Normocephalic and atraumatic. -Right Ear: External ear normal. No mastoid tenderness. -Left Ear: External ear normal. No mastoid tenderness. -Mouth/Throat: The oropharynx is clear and moist. No trismus in the jaw. No dental abscesses or uvula swelling. No oropharyngeal exudate or tonsillar abscesses. EYES: Conjunctivae and EOM are normal. Pupils are equal, round, and reactive to light. Right eye exhibits no discharge. Left eye exhibits no discharge. No scleral icterus. NECK: Normal range of motion. Neck supple. No JVD present. No spinous process tenderness present. No carotid bruit present. No rigidity. No tracheal deviation and normal range of motion present. No Brudzinski's sign and no Kernig's sign noted. CV: Normal rate, regular rhythm, normal heart sounds and intact distal pulses. There is no peripheral edema. Palpable radial pulses bue. PULM/CHEST: Effort normal and breath sounds normal. No respiratory distress. No stridor. She has no wheezes. She has no rales. -Chest Wall: She exhibits no tenderness. ABD: The abdomen is soft. There is diffuse tenderness to palpation of the abdomen. There is no rebound, no guarding, or rigidity. MUSC/SKEL: Normal range of motion. There is no peripheral edema, tenderness or deformity. LYMPH: No cervical adenopathy. NEURO: She is alert and oriented to person, place, and time. She has normal strength. No cranial nerve deficit or sensory deficit. Coordination and gait normal. GCS eye subscore is 4. GCS verbal subscore is 5. GCS motor subscore is 6. Cerebellar tests wnl. SKIN: Skin is warm and dry. She is not diaphoretic. PSYCH: She has a normal mood and affect. Behavior is normal. Judgment and thought content normal. Course Course 1151: The patient was evaluated in room A11. A complete history and physical exam was performed Cardiac monitoring: An order was placed for continuous cardiac monitoring. The monitor shows a rate of 120 with sinus tachycardia rhythm Patient tachycardic and hypotensive on arrival. Sepsis protocols initiated. 1250: Blood pressure improved status post IV fluids. Patient taken to CT scan. 1325: Received a call from radiology which stated that the patient has pneum operitoneum, pneumatosis, and there is concern for multiple dilated small bowel loops representing a possible ischemic colitis with bowel perforation and obstruction. Patient's labs show an elevated creatinine of 3.64, lactic acid of 3.5, troponin elevated 0.159, procalcitonin elevated 0.51. Discussed with Dr. Cabrera on-call general surgery who will be down to evaluate the patient. Patient be treated with broad-spectrum antibiotics. 1400: Dr. Cabrera evaluated the patient's and stated he will take the patient to the OR. Administered Medications Lactated Ringer's (Lr) 1,000 mls @ 150 mls/hr IV .Q6H40M [facility] Stop: 02/28/21 17:35 Last Admin: 01/29/21 18:31 Dose: 150 mls/hr Documented by: [id number] Discontinued Medications Acetaminophen (Acetaminophen 1000 Mg/100 Ml Iv) Confirm Administered Dose 1,000 mg IV .STK-MED ONE Stop: 01/29/21 16:39 Last Admin: 01/29/21 16:41 Dose: 1,000 mg Documented by: [id number] Cefoxitin Sodium (Cefoxitin Sod 1 Gm Vial) Confirm Administered Dose 3,000 mg .ROUTE .STK-MED ONE Stop: 01/29/21 15:32 Last Admin: 01/29/21 16:19 Dose: 1,000 mg Documented by: [id number] Fentanyl Citrate (Fentanyl Citrate 100 Mcg/2 Ml Vial) 50 mcg IV Q5M PRN PRN Reason: PACU Use Only-Pain Stop: 01/29/21 23:10 Last Admin: 01/29/21 16:50 Dose: 50 mcg Documented by: [id number] Sodium Chloride (Nss 1000ml) 1,000 mls @ 999 mls/hr IV .Q1H1M ONE Stop: 01/29/21 12:59 Last Infusion: 01/29/21 13:12 Dose: 0 mls/hr Documented by: [id number] Admin: 01/29/21 12:11 Dose: 999 mls/hr Documented by: [id number] Sodium Chloride (Nss 1000ml) 1,000 mls @ 999 mls/hr IV .Q1H1M ONE Stop: 01/29/21 13:33 Last Infusion: 01/29/21 14:07 Dose: 0 mls/hr Documented by: [id number] Admin: 01/29/21 13:06 Dose: 999 mls/hr Documented by: [id number] Piperacillin Sod/Tazobactam Sod (Zosyn) 4.5 gm in 120 mls @ 240 mls/hr IV NOW ONE Stop: 01/29/21 13:43 Last Infusion: 01/29/21 13:52 Dose: 0 mls/hr Documented by: [id number] Admin: 01/29/21 13:22 Dose: 240 mls/hr Documented by: [id number] Acetaminophen (Ofirmev) 1,000 mg in 100 mls @ 400 mls/hr IV NOW ONE; Protocol Stop: 01/29/21 17:50 Last Infusion: 01/29/21 18:21 Dose: 0 mls/hr Documented by: [id number] Admin: 01/29/21 18:06 Dose: 400 mls/hr Documented by: [id number] Ondansetron HCl (Ondansetron Inj 2 Mg/Ml 2 Ml Vial) 4 mg IV NOW STA Stop: 01/29/21 12:00 Last Admin: 01/29/21 12:13 Dose: 4 mg Documented by: [id number] Ondansetron HCl (Ondansetron Inj 2 Mg/Ml 2 Ml Vial) 4 mg IV ONCE PRN PRN Reason: PACU Use Only-Nausea/Vomiting Stop: 01/29/21 23:10 Last Admin: 01/29/21 16:44 Dose: 4 mg Documented by: [id number] Critical Care Time Critical Care Time: Yes Total Critical Care Time: 60 I have personally spent greater than 60 minutes of critical care time in the direct management of this patient. This includes bedside care, interpretation of diagnostic studies, and testing, discussion with consultants, patient, and family members, and other required patient management activities. This 60 minutes is in excess of all separately billable procedures. Medical Decision Making Laboratory Data Result diagrams: 01/29/21 18:01 01/29/21 18:01 Lab Results 01/29/21 01/29/21 01/29/21 Range/Units 12:08 12:08 12:08 WBC 14.45 H (4.8-10.8) K/uL RBC 4.15 L (4.2-5.4) M/uL Hgb 12.4 (12.0-16.0) g/dL POC Hgb (12.0-16.0) g/dl Hct 38.7 (37-47) % POC Hct (37-47) % MCV 93.3 (80-100) fL MCH 29.9 (25-34) pg MCHC 32.0 (32-36) g/dL RDW Std Deviation 48.2 H (36.4-46.3) fL RDW Coeff of Bo 14.1 (11.5-14.5) % Plt Count 202 (130-400) K/uL MPV 12.0 H (7.4-10.4) fL Immature Gran % (Auto) 0.3 % Neut % (Auto) 76.5 % Lymph % (Auto) 14.3 % Sebastian % (Auto) 7.9 % Eos % (Auto) 0.9 % Baso % (Auto) 0.1 % Neut # (Auto) 11.05 H (1.4-6.5) K/uL Lymph # (Auto) 2.07 (1.2-3.4) K/uL Sebastian # (Auto) 1.14 H (0.11-0.59) K/uL Eos # (Auto) 0.13 (0-0.5) K/uL Baso # (Auto) 0.02 (0-0.2) K/uL Immature Gran # (Auto) 0.04 H (0.00-0.02) K/uL PT (9.0-12.0) Seconds INR (0.9-1.1) APTT (21.0-31.0) Seconds PTT Ratio POC Sodium (135-144) mmol/L Sodium 133 L (136-145) mmol/L POC Potassium (3.3-5.0) mmol/L Potassium 3.9 (3.5-5.1) mmol/L POC Chloride (101-112) mmol/L Chloride 93 L (98-107) mmol/L Carbon Dioxide 34 H (21-32) mmol/L POC Total CO2 (24-31) mmol/L Anion Gap 6.0 (3-11) POC Anion Gap (16-25) mmol/L POC BUN (7-18) mg/dl BUN 59 H (7-18) mg/dl Creatinine 3.64 H (0.6-1.2) mg/dl POC Creatinine (0.6-1.3) mg/dl Est Cr Clr Drug Dosing Not Reportable Est GFR ( Amer) 14.0 ml/min Est GFR (Non-Af Amer) 12.0 ml/min BUN/Creatinine Ratio 16.3 (10-20) Glucose 109 H (70-99) mg/dl POC Glucose (other) (70-99) mg/dl Lactate (0.4-2.0) mmol/L Calcium 9.9 (8.5-10.1) mg/dl POC Ioniz Calcium Cony (1.12-1.32) mmol/l Magnesium 1.7 L (1.8-2.4) mg/dl Total Bilirubin 0.5 (0.2-1) mg/dl AST 28 (15-37) U/L ALT 26 (12-78) U/L Alkaline Phosphatase 66 (45-117) U/L Troponin I 0.159 H* (0-0.045) ng/ml Total Protein 7.2 (6.4-8.2) gm/dl Albumin 2.9 L (3.4-5.0) gm/dl Globulin 4.3 H (2.5-4.0) gm/dl Albumin/Globulin Ratio 0.7 L (0.9-2) Procalcitonin 0.51 H (0-0.5) ng/ml COVID-19 Eval Order SARS-CoV-2 (PCR) (Negative) 01/29/21 01/29/21 01/29/21 Range/Units 12:08 12:08 12:15 WBC (4.8-10.8) K/uL RBC (4.2-5.4) M/uL Hgb (12.0-16.0) g/dL POC Hgb 11.9 L (12.0-16.0) g/dl Hct (37-47) % POC Hct 35 L (37-47) % MCV (80-100) fL MCH (25-34) pg MCHC (32-36) g/dL RDW Std Deviation (36.4-46.3) fL RDW Coeff of Bo (11.5-14.5) % Plt Count (130-400) K/uL MPV (7.4-10.4) fL Immature Gran % (Auto) % Neut % (Auto) % Lymph % (Auto) % Sebastian % (Auto) % Eos % (Auto) % Baso % (Auto) % Neut # (Auto) (1.4-6.5) K/uL Lymph # (Auto) (1.2-3.4) K/uL Sebastian # (Auto) (0.11-0.59) K/uL Eos # (Auto) (0-0.5) K/uL Baso # (Auto) (0-0.2) K/uL Immature Gran # (Auto) (0.00-0.02) K/uL PT 10.3 (9.0-12.0) Seconds INR 1.0 (0.9-1.1) APTT 23.1 (21.0-31.0) Seconds PTT Ratio 0.9 POC Sodium 135 (135-144) mmol/L Sodium (136-145) mmol/L POC Potassium 4.2 (3.3-5.0) mmol/L Potassium (3.5-5.1) mmol/L POC Chloride 88 L (101-112) mmol/L Chloride (98-107) mmol/L Carbon Dioxide (21-32) mmol/L POC Total CO2 34 H (24-31) mmol/L Anion Gap (3-11) POC Anion Gap 19.0 (16-25) mmol/L POC BUN 55 H (7-18) mg/dl BUN (7-18) mg/dl Creatinine (0.6-1.2) mg/dl POC Creatinine 3.8 H (0.6-1.3) mg/dl Est Cr Clr Drug Dosing Est GFR ( Amer) ml/min Est GFR (Non-Af Amer) ml/min BUN/Creatinine Ratio (10-20) Glucose (70-99) mg/dl POC Glucose (other) 111 H (70-99) mg/dl Lactate 3.5 H* (0.4-2.0) mmol/L Calcium (8.5-10.1) mg/dl POC Ioniz Calcium Cony 1.17 (1.12-1.32) mmol/l Magnesium (1.8-2.4) mg/dl Total Bilirubin (0.2-1) mg/dl AST (15-37) U/L ALT (12-78) U/L Alkaline Phosphatase (45-117) U/L Troponin I (0-0.045) ng/ml Total Protein (6.4-8.2) gm/dl Albumin (3.4-5.0) gm/dl Globulin (2.5-4.0) gm/dl Albumin/Globulin Ratio (0.9-2) Procalcitonin (0-0.5) ng/ml COVID-19 Eval Order SARS-CoV-2 (PCR) (Negative) 01/29/21 01/29/21 Range/Units 13:06 13:06 WBC (4.8-10.8) K/uL RBC (4.2-5.4) M/uL Hgb (12.0-16.0) g/dL POC Hgb (12.0-16.0) g/dl Hct (37-47) % POC Hct (37-47) % MCV (80-100) fL MCH (25-34) pg MCHC (32-36) g/dL RDW Std Deviation (36.4-46.3) fL RDW Coeff of Bo (11.5-14.5) % Plt Count (130-400) K/uL MPV (7.4-10.4) fL Immature Gran % (Auto) % Neut % (Auto) % Lymph % (Auto) % Sebastian % (Auto) % Eos % (Auto) % Baso % (Auto) % Neut # (Auto) (1.4-6.5) K/uL Lymph # (Auto) (1.2-3.4) K/uL Sebastian # (Auto) (0.11-0.59) K/uL Eos # (Auto) (0-0.5) K/uL Baso # (Auto) (0-0.2) K/uL Immature Gran # (Auto) (0.00-0.02) K/uL PT (9.0-12.0) Seconds INR (0.9-1.1) APTT (21.0-31.0) Seconds PTT Ratio POC Sodium (135-144) mmol/L Sodium (136-145) mmol/L POC Potassium (3.3-5.0) mmol/L Potassium (3.5-5.1) mmol/L POC Chloride (101-112) mmol/L Chloride (98-107) mmol/L Carbon Dioxide (21-32) mmol/L POC Total CO2 (24-31) mmol/L Anion Gap (3-11) POC Anion Gap (16-25) mmol/L POC BUN (7-18) mg/dl BUN (7-18) mg/dl Creatinine (0.6-1.2) mg/dl POC Creatinine (0.6-1.3) mg/dl Est Cr Clr Drug Dosing Est GFR ( Amer) ml/min Est GFR (Non-Af Amer) ml/min BUN/Creatinine Ratio (10-20) Glucose (70-99) mg/dl POC Glucose (other) (70-99) mg/dl Lactate (0.4-2.0) mmol/L Calcium (8.5-10.1) mg/dl POC Ioniz Calcium Cony (1.12-1.32) mmol/l Magnesium (1.8-2.4) mg/dl Total Bilirubin (0.2-1) mg/dl AST (15-37) U/L ALT (12-78) U/L Alkaline Phosphatase (45-117) U/L Troponin I (0-0.045) ng/ml Total Protein (6.4-8.2) gm/dl Albumin (3.4-5.0) gm/dl Globulin (2.5-4.0) gm/dl Albumin/Globulin Ratio (0.9-2) Procalcitonin (0-0.5) ng/ml COVID-19 Eval Order Covid19 at [facility] SARS-CoV-2 (PCR) NEGATIVE (Negative) Imaging Data Radiologist's Impression: Chest X-Ray 01/29/21 11:59 XR chest 1V portable HISTORY: SEPSIS COMPARISON: Chest 10/19/2019. FINDINGS: The lungs are clear. The heart is normal in size. No pleural effusions. No pneumothorax. Calcified granuloma within the right lung base remains unchanged. The lungs are mildly hyperexpanded. Prior cholecystectomy. IMPRESSION: No acute process. ACT 112: Negative or not required by law. Electronically signed by: Jam Lewis M.D. 01/29/2021 12:41 PM Abdomen/Pelvis CT 01/29/21 12:52 CT OF THE ABDOMEN AND PELVIS WITHOUT CONTRAST CLINICAL HISTORY: Abdominal pain, nausea and vomiting. COMPARISON STUDY: CT of the abdomen and pelvis March 10, 2020. TECHNIQUE: Axial images of the abdomen and pelvis were obtained without IV contrast. Images were reviewed in the axial, sagittal, and coronal planes. Automated exposure control was utilized for the study. A dose lowering technique was utilized adhering to the principles of ALARA. FINDINGS: Visualized portions of the lung bases demonstrate mild multifocal groundglass opacities. There is a calcified granuloma within the right lower lobe. Evaluation of the abdomen and pelvis is suboptimal on this unenhanced exam. A small amount of pneumoperitoneum is noted. In addition, there is extensive pneumatosis of numerous small bowel loops. The proximal to mid small bowel is moderately dilated and fluid-filled. A well-defined transition point is not identified however the findings favor an underlying small bowel obstruction. There are postoperative findings from a right hemicolectomy. The stomach is mildly distended and fluid-filled. There are calcified cannula was within the spleen. Mild dilatation of the common bile duct is likely related to cholecystectomy. Small bilateral renal calculi measure up to 5 mm. There are no ureteral calculi. There is a cyst within the midpole of the left kidney. A hyperdense 1.3 cm lesion within the upper pole of the left kidney favors a hyperdense cyst when correlating with prior contrast enhanced CT. There is extensive colonic diverticulosis without evidence for acute diverticulitis. Th ere is no free fluid. There is no abscess. Nodularity of the left adrenal gland is unchanged. No acute fracture or suspicious lesion is identified within visualized skeletal structures. IMPRESSION: 1. Excessive pneumatosis of multiple small bowel loops with small amount of associated pneumoperitoneum. Although pneumatosis is nonspecific, the findings are highly suggestive of small bowel ischemia with bowel perforation. Surgical consultation is recommended. Moderately dilated fluid-filled proximal to mid small bowel favors an underlying small bowel obstruction although a discrete transition point is not identified. Findings discussed with Dr. Cochran at time of dictation. 2. Mild groundglass opacities within the lower lungs which favor an infectious process or aspiration. 3. Bilateral nephrolithiasis. No ureteral calculi. No hydronephrosis. ACT 112: Negative or not required by law. Electronically signed by: Edson Barreto M.D. 01/29/2021 1:24 PM ECG Data Indication: + abdominal pain Rate (beats per minute): 128 Rhythm: + sinus tachycardia ECG Intervals/blocks: + Normal QRS, + Normal MA and + Normal QT-c ECG ST segments: + Normal ST segments MDM Narrative 1151: The patient was evaluated in room A11. A complete history and physical ex am was performed Cardiac monitoring: An order was placed for continuous cardiac monitoring. The monitor shows a rate of 120 with sinus tachycardia rhythm Patient tachycardic and hypotensive on arrival. Sepsis protocols initiated. 1250: Blood pressure improved status post IV fluids. Patient taken to CT scan. 1325: Received a call from radiology which stated that the patient has pneumoperitoneum, pneumatosis, and there is concern for multiple dilated small bowel loops representing a possible ischemic colitis with bowel perforation and obstruction. Patient's labs show an elevated creatinine of 3.64, lactic acid of 3.5, troponin elevated 0.159, procalcitonin elevated 0.51. Discussed with Dr. Cabrera on-call general surgery who will be down to evaluate the patient. Patient be treated with broad-spectrum antibiotics. 1400: Dr. Cabrera evaluated the patient's and stated he will take the patient to the OR. Impression & Plan Bowel perforation, SBO (small bowel obstruction), Sepsis Discharge Plan Visit Data Chief Complaint: Vomiting Stated Complaint: VOMITING,DIARRHEA,NAUSEA,WEAK Discharge Problem: Bowel perforation, SBO (small bowel obstruction), Sepsis Patient Disposition: Admitted As Inpatient Discharge Instructions Interventions: ED Discharge Assessment Last Done: 01/29/21 14:28
[2021-01-29] MEDS: MAGNESIUM SULFATE / D5W 1 GM/100 ML BAG IV SCH ×2 (20:50→22:45)
[2021-01-29] MEDS: HYDROCORTISONE SOD 50 MG in SYRINGE 0 ML IV SCH (20:51)
[2021-01-29] MEDS ORDERED: ENOXAPARIN INJ 40 MG/0.4 ML SYR SQ SCH (21:00)
[2021-01-30] MEDS: LACTATED RINGER'S 1,000 ML IV SCH ×2 (03:48→08:27)
[2021-01-30] MEDS: HYDROmorphone INJ 0.5 MG/0.5 ML SYR IV PRN ×2 (05:05→15:22)
[2021-01-30 05:27] LABS: Hematocrit (blood only) 34.4 % (37-47); Hemoglobin 10.9 g/dL (12.0-16.0); Immature Granulocytes # (auto) 0.02 K/uL (0.00-0.02); Immature Granulocytes % (auto) 0.2 %; Lymphocytes # (auto) 1.02 K/uL (1.2-3.4); Lymphocytes % (auto) 8.9 %; Mean Corpuscular Hemoglobin 29.5 pg (25-34); Mean Corpuscular Hgb Conc 31.7 g/dL (32-36); Mean Corpuscular Volume 93.2 fL (80-100); Monocytes # (auto) 0.59 K/uL (0.11-0.59); Monocytes % (auto) 5.2 %; Neutrophils # (auto) 9.81 K/uL (1.4-6.5); Neutrophils % (auto) 85.7 %; Platelet Count 149 K/uL (130-400); Red Blood Count 3.69 M/uL (4.2-5.4); White Blood Count 11.44 K/uL (4.8-10.8)
[2021-01-30 06:15] LABS: Albumin Globulin Ratio 0.6 (0.9-2); Albumin Level 2.1 gm/dl (3.4-5.0); BUN Creatinine Ratio 15.5 (10-20); Bilirubin,Total 0.3 mg/dl (0.2-1); Calcium 7.8 mg/dl (8.5-10.1); Est GFR (African American) 13.9 ml/min; Globulin 3.7 gm/dl (2.5-4.0); Phosphorus 5.8 mg/dl (2.5-4.9); Total Protein 5.8 gm/dl (6.4-8.2)
[2021-01-30 07:07] LABS: Potassium 4.1 mmol/L (3.5-5.1)
--- NOTE | 2021-01-30 07:11 | Critical Care Progress Note ---
Date of Service January 30, 2021 Assessment & Plan (1) Bowel perforation: Plan: Reason Critically Ill: 70 year old female w/ PMHx of mixed connective tissue disease, right hemicolectomy (colonoscopy in 09/2019 led to perforation of proximal colon), and subsequent adhesions, pneumatosis intestinalis, and partial SBO who presents w/ multiple episodes of nausea and vomiting x 1 day. She presented to the ICU because CT abd showed possible small bowel perforation. Patient is s/p ex-lap, neg for perforation. Neuro - [facility] ICU: negative Cardiac - shock, mild: Resolved hypovolemic Low MAP of 57 (87/44) at ED admission, since improved; no pressors required Tachycardic to 100s-120s at ED arrival, since resolved Slight leukocytosis 14.45 and elevated lactate 3.5 supports sepsis. Source may be from bowel obstruction. Resuscitated w/ 2L of NSS. IV Zosyn for empiric GI prophylaxis. elevated troponin peaked at .27, likely 2/2 demand ischemia denies chest pain Respiratory - satting well on 2L nasal cannula asthma continue home Symbicort GI - NPO per surgery Small bowel obstruction vs ischemic bowel vs bowel perforation CT abd: "Excessive pneumatosis of multiple small bowel loops with small amount of associated pneumoperitoneum. Although pneumatosis is nonspecific, the findings are highly suggestive of small bowel ischemia with bowel perforation." OR for exlap. Update: No evidence of intra-abd infection or bowel perforation. Adhesions lysed. -NG to gravity RENAL/LYTES - Slight hyponatremia: stable acute kidney injury May be 2/2 ATN from transient shock state. Also considered prerenal azotemia and lower suspicion for obstruction. -Continue gentle hydration. Changed from 150 NSS to 100 normosol. -nephro following - johns ENDO - No known hx of DM or thyroid disease. ICU hyperglycemia protocol. mixed connective tissue disease, chronic Chronic hydroxychloroquine 200 mg PO daily, prednisone 10 mg PO daily, and Lyrica 75 mg PO daily for mixed connective tissue disease. -Stopped additional hydrocortisone and transitioned back to daily prednisone HEME - Stable H/H. Follow CBC ID - Afebrile. Follow CBC and clinically. Continue empiric Zosyn for GI ppx. PT OT consult out of bed to chair LINES/IV ACCESS - PIVs intact. DVT PROPHYLAXIS - SCDs. Lovenox ppx daily From critical care aspect we will sign off hospitalist medicine following and aware (2) Mixed connective tissue disease: (3) Restrictive lung disease: (4) Chronic obstructive asthma: Admission and Anticipated Discharge Date Admission Date: January 29, 2021 Supervising Physician Co-Signing Physician Notes Dr. Castillo was resident physician during care of patient. I separately evaluated patient for huston portions of the history and the exam. I was present during the critical portion of medical decision making, and I discussed the case with the resident. I generally agree with the findings and plan. TAB is slowly stabilizing continue gentle hydration. Discussed with general surgery and hospitalist medicine will sign off at this time. Subjective Patient is feeling ok. No abd pain. Some throat discomfort from NG tube. She has not vomited overnight. No complaints. Review of Systems Review of Systems: All systems reviewed & are unremarkable except as noted in HPI & below Constitutional: Denies fever, chills Cardiovascular: Denies chest pain Respiratory: Denies shortness of breath Gastrointestinal: Denies constipation, diarrhea. See HPI Genitourinary: Denies urinary symptoms including dysuria Musculoskeletal: Denies weakness, muscle aches/pain, joint aches/pain Neurological: Denies headache, numbness, tingling, focal weakness + johns Physical Exam Physical Exam: General: Grossly A&O. NAD. Cooperative. Conversive. Thin/frail habitus HEENT: Atraumatic, normocephalic. EOMI. Pulm: No respiratory distress. Slightly decreased air entry diffusely. Cardiac: RRR, +2/6 systolic murmur. Very slight LE edema. Abdominal: Nondistended, soft. Mild discomfort to palpation epigastrium. No guarding. Msk: Frail habitus. + muscle atrophy. Integ: Faint ecchymoses on bilateral shins, mild ttp. Results & Data Results & Data ([facility]) Vital Signs (Past 12 Hours) Vital Signs Temp Pulse Resp BP Pulse Ox 01/30/21 06:11 81 16 93/61 L 96 01/30/21 05:42 80 14 95/57 L 95 01/30/21 05:13 85 20 107/65 90 01/30/21 04:42 36.7 C 85 22 123/64 94 01/30/21 04:12 82 18 96/62 L 98 01/30/21 03:41 82 15 111/66 97 01/30/21 03:11 79 13 91/56 L 98 01/30/21 02:41 81 16 90/64 L 98 01/30/21 02:12 82 12 103/65 98 01/30/21 01:42 80 22 91/55 L 98 01/30/21 01:11 84 17 91/56 L 98 01/30/21 00:42 83 21 90/59 L 98 01/30/21 00:12 89 19 97/51 L 94 01/29/21 23:59 87 01/29/21 23:42 36.7 C 91 H 23 94 01/29/21 23:27 86 16 95/50 L 96 01/29/21 23:12 88 15 101/51 L 96 01/29/21 22:56 92 H 19 105/52 L 95 01/29/21 22:41 87 19 97/55 L 98 01/29/21 22:26 87 26 H 103/53 L 98 01/29/21 22:11 87 15 102/54 L 98 01/29/21 21:56 85 21 99/53 L 98 01/29/21 21:41 87 15 101/60 99 01/29/21 21:26 87 20 103/59 L 98 01/29/21 21:11 89 15 98/60 L 98 01/29/21 20:56 90 19 102/61 98 01/29/21 20:41 88 15 98/61 L 98 01/29/21 20:26 88 18 104/65 99 01/29/21 20:11 89 15 101/64 98 01/29/21 19:56 87 19 98/59 L 99 01/29/21 19:41 84 16 100/61 98 01/29/21 19:26 84 20 100/60 98 01/29/21 19:11 84 16 103/62 97 Laboratory Results wbc 10.24->11.44. Hb stable 10.9. Plts stable 149. electrolytes stable. TAB 3.11->3.66. baseline low 1.1s. phos 5.8. avoid phos supp. Ca 7.8 (corrected 9.3). Mg pending. trop peaked at 0.27. ua had 1+ leuks an hyaline cast 10-30 on microscopy. order urine lytes. uc, bc pending 01/30/21 05:00 01/30/21 06:35 Diagnostic Findings Chest X-Ray 01/29/21 11:59 XR chest 1V portable HISTORY: SEPSIS COMPARISON: Chest 10/19/2019. FINDINGS: The lungs are clear. The heart is normal in size. No pleural effusions. No pneumothorax. Calcified granuloma within the right lung base remains unchanged. The lungs are mildly hyperexpanded. Prior cholecystectomy. IMPRESSION: No acute process. ACT 112: Negative or not required by law. Electronically signed by: Jam Lewis M.D. 01/29/2021 12:41 PM Abdomen/Pelvis CT 01/29/21 12:52 CT OF THE ABDOMEN AND PELVIS WITHOUT CONTRAST CLINICAL HISTORY: Abdominal pain, nausea and vomiting. COMPARISON STUDY: CT of the abdomen and pelvis March 10, 2020. TECHNIQUE: Axial images of the abdomen and pelvis were obtained without IV contrast. Images were reviewed in the axial, sagittal, and coronal planes. Automated exposure control was utilized for the study. A dose lowering technique was utilized adhering to the principles of ALARA. FINDINGS: Visualized portions of the lung bases demonstrate mild multifocal groundglass opacities. There is a calcified granuloma within the right lower lobe. Evaluation of the abdomen and pelvis is suboptimal on this unenhanced exam. A small amount of pneumoperitoneum is noted. In addition, there is extensive pneumatosis of numerous small bowel loops. The proximal to mid small bowel is moderately dilated and fluid-filled. A well-defined transition point is not identified however the findings favor an underlying small bowel obstruction. There are postoperative findings from a right hemicolectomy. The stomach is mildly distended and fluid-filled. There are calcified cannula was within the spleen. Mild dilatation of the common bile duct is likely related to cholecystectomy. Small bilateral renal calculi measure up to 5 mm. There are no ureteral calculi. There is a cyst within the midpole of the left kidney. A hyperdense 1.3 cm lesion within the upper pole of the left kidney favors a hyperdense cyst when correlating with prior contrast enhanced CT. There is extensive colonic diverticulosis without evidence for acute diverticulitis. There is no free fluid. There is no abscess. Nodularity of the left adrenal glan d is unchanged. No acute fracture or suspicious lesion is identified within visualized skeletal structures. IMPRESSION: 1. Excessive pneumatosis of multiple small bowel loops with small amount of associated pneumoperitoneum. Although pneumatosis is nonspecific, the findings are highly suggestive of small bowel ischemia with bowel perforation. Surgical consultation is recommended. Moderately dilated fluid-filled proximal to mid small bowel favors an underlying small bowel obstruction although a discrete transition point is not identified. Findings discussed with Dr. Cochran at time of dictation. 2. Mild groundglass opacities within the lower lungs which favor an infectious process or aspiration. 3. Bilateral nephrolithiasis. No ureteral calculi. No hydronephrosis. ACT 112: Negative or not required by law. Electronically signed by: Edson Barreto M.D. 01/29/2021 1:24 PM Resident Activity Tracking Resident Involvement: Resident Care Provided Care Provided: Adult Hospital Medicine
[2021-01-30 07:12] LABS: Magnesium 2.6 mg/dl (1.8-2.4)
--- NOTE | 2021-01-30 07:17 | Surgery Progress Note ---
Date of Service January 30, 2021 Assessment & Plan (1) SBO (small bowel obstruction): Plan: Patient did not have signs of infection-her problem seem to be more hypovolemic shock Patient is awake and alert Her blood pressure and pulse are more stable Her urine output is still somewhat marginal Her creatinine has gone up some, her mag and Phos are also elevated Patient currently has IV running at 150/h-we will see what the medical team feels Are her requirements for additional fluids May need nephrology consult Asked the medical team to see the patient for post ICU care May need a PICC line sooner than later for TPN Admission and Anticipated Discharge Date Admission Date: January 29, 2021 Results & Data ([facility]) Vital Signs (Past 12 Hours) Vital Signs Temp Pulse Resp BP Pulse Ox 01/30/21 06:11 81 16 93/61 L 96 01/30/21 05:42 80 14 95/57 L 95 01/30/21 05:13 85 20 107/65 90 01/30/21 04:42 36.7 C 85 22 123/64 94 01/30/21 04:12 82 18 96/62 L 98 01/30/21 03:41 82 15 111/66 97 01/30/21 03:11 79 13 91/56 L 98 01/30/21 02:41 81 16 90/64 L 98 01/30/21 02:12 82 12 103/65 98 01/30/21 01:42 80 22 91/55 L 98 01/30/21 01:11 84 17 91/56 L 98 01/30/21 00:42 83 21 90/59 L 98 01/30/21 00:12 89 19 97/51 L 94 01/29/21 23:59 87 01/29/21 23:42 36.7 C 91 H 23 94 01/29/21 23:27 86 16 95/50 L 96 01/29/21 23:12 88 15 101/51 L 96 01/29/21 22:56 92 H 19 105/52 L 95 01/29/21 22:41 87 19 97/55 L 98 01/29/21 22:26 87 26 H 103/53 L 98 01/29/21 22:11 87 15 102/54 L 98 01/29/21 21:56 85 21 99/53 L 98 01/29/21 21:41 87 15 101/60 99 10/04/21 21:26 87 20 103/59 L 98 01/29/21 21:11 89 15 98/60 L 98 01/29/21 20:56 90 19 102/61 98 01/29/21 20:41 88 15 98/61 L 98 01/29/21 20:26 88 18 104/65 99 01/29/21 20:11 89 15 101/64 98 01/29/21 19:56 87 19 98/59 L 99 01/29/21 19:41 84 16 100/61 98 01/29/21 19:26 84 20 100/60 98 PG Care Time/CCT Total # of Minutes Spent Total Time Spent with Patient: Total time spent is greater than 50% in coordination of care (as documented) at patient's floor/unit and/or counseling patient: Coding Level of Care Code None Diagnoses SBO (small bowel obstruction) K56.609
[2021-01-30] MEDS: HYDROCORTISONE SOD 50 MG in SYRINGE 0 ML IV SCH (08:27)
[2021-01-30] MEDS: HEPARIN SOD 5,000 UNIT/0.5 ML VIAL SQ SCH ×2 (08:27→21:09)
[2021-01-30] MEDS: CHLORASEPTIC 1.4% SOLN 180 ML BTL MT PRN ×2 (08:27→20:11)
--- NOTE | 2021-01-30 09:40 | Billing Data ---
Date of Service January 30, 2021 Coding Level of Care Code 97253 Subseq Hosp Care Lvl 2
[2021-01-30] MEDS: NORMOSOL-R 1,000 ML IV SCH ×2 (11:20→20:11)
[2021-01-30] MEDS: HYDROXYCHLOROQUINE SULFATE 200 MG TAB PO SCH (12:20)
--- NOTE | 2021-01-30 12:33 | Nephrology Consultation ---
Date of Consultation January 30, 2021 Assessment & Plan (1) TAB (acute kidney injury): Non-oliguric. CT did not demonstrate obstruction. Electrolytes acceptable. Volume status improving. No emergent indication for PUMP INSTALLER at this time. Clinical presentation consistent with ischemic ATN. UA with protein, WBCs/RBCs. Culture negative. Urine studies to be repeated today. Medications appropriately dosed for kidney function. BP improved. Continue normosol to encourage a positive fluid balance. Document strict I/O's. Repeat metabolic profile tomorrow AM. History of Present Illness Reason for Consultation: TAB Requesting Physician: Luis Armando Cabrera MD, FACS Attending Physician: Luis Armando Cabrera MD, FACS History of Present Illness Ashia Ca is a 70 year-old female with mixed connective tissue disease, multiple abdominal surgeries (including a right hemicolectomy, recurrent SBO, pneumatosis intestinalis) and asthma. She presented to [facility] yesterday with intractable nausea and vomiting, as well as epigastric pain. She presented with signs of shock and evidence of pneumatosis coli and pneumoperitoneum on CT. Ashia is POD#1 s/p emergency ex-lap. Some adhesions noted but otherwise healthy appearing colon without evidence of perforation. There was no evidence of infection. Ashia's BP remains relatively low but improved with intravascular volume expansion. She was extubated in the IVU post operatively. After discussing the case with Dr. Cabrera, the patient was seen and evaluated in the ICU this morning. She was resting comfortably in bed. She denies significant pain. 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 She otherwise feels well. Baseline creatinine 1.0 mg/dL. Ashia is non-oliguric. Allergies Allergy/AdvReac Type Severity Reaction Status Date / Time latex Allergy Unknown _ Verified 01/29/21 13:14 leflunomide AdvReac Unknown Unknown Verified 01/29/21 13:14 Home Medications Medication Instructions Recorded Confirmed Type budesonide-formoterol HFA 160 1 puff INHALATION DIRECTED 10/19/19 01/29/21 History mcg-4.5 mcg/actuation aerosol inhaler (Symbicort) hydroxychloroquine 200 mg tablet 200 mg PO DAILY 03/10/20 01/29/21 History ergocalciferol (vitamin D2) 1,250 50,000 unit PO .QTUESDAY 01/29/21 01/29/21 History mcg (50,000 unit) capsule prednisone 10 mg tablet 10 mg PO DAILY 01/29/21 01/29/21 History pregabalin 75 mg capsule 75 mg PO DAILY 01/29/21 01/29/21 History Patient History Medical History (Updated 01/30/21 @ 12:40 by Jacques Partida DO) Chronic obstructive asthma Heart disease Kidney stones Mixed connective tissue disease Surgical History (Updated 01/30/21 @ 10:36 by Smita Lopez RN) History of ankle surgery History of bowel resection X 2 AT [facility] [place] S/P PERFORATION AFTER COLONOSCOPY History of laparotomy (01/29/21) Exploratory laparotomy with lysis of adhesions. Dr. Cabrera 01/29/2021 History of lithotripsy renal S/P cataract surgery S/P cholecystectomy Family History Mother Squamous cell carcinoma Uterine cancer Breast cancer Hypertension Father Squamous cell carcinoma Breast cancer Hypertension Diabetes Cardiac disorder Family/Other Uterine cancer Breast cancer Denies family history of Ovarian cancer Colorectal cancer Social History Smoking Status: Former smoker Smoking End Date: 1990; Hx Alcohol Use: No Hx Substance Use: No Preferred Language: Tamazight Communication Ability: Effective Chief Specialist Leed Required: No Beliefs That Will Affect Care: None marital status: Current Living Situation: Alone Other Information That Helps Us Care for You: No Feels Safe at Home: Yes Safety Concerns: Feels Safe At This Time Assistive Devices: Cane, Glasses and Walker Review of Systems Review of Systems: All systems reviewed & are unremarkable except as noted in HPI & below Physical Exam Constitutional: well developed; no acute distress Eyes: no scleral abnormality and no corneal abnormality ENMT: Mouth: + dry oral mucous membranes; no oral mucosal abnormality Neck: normal visual inspection and trachea midline Respiratory: normal respiratory effort Auscultation: lungs clear to auscultation bilaterally Cardiovascular: Rate/Rhythm: regular rate Heart Sounds: normal S1 and normal S2 Extremities: no edema Musculoskeletal: Extremities: no cyanosis and no clubbing Skin: normal turgor; no lesions Neurologic: Motor/Sensory: no tremor and no asterixis Psychiatric: Orientation: alert and oriented x 3 Results & Data ([facility]) Vital Signs (Past 12 Hours) Vital Signs Temp Pulse Resp BP Pulse Ox 10/05/21 10:42 89 20 100/59 L 96 01/30/21 10:11 81 11 L 104/63 93 01/30/21 09:42 80 17 96/60 L 97 01/30/21 09:12 85 21 112/62 93 01/30/21 08:42 79 16 100/55 L 95 01/30/21 08:11 36.2 C L 79 17 92/56 L 96 01/30/21 08:00 79 01/30/21 07:41 81 13 95/57 L 96 01/30/21 07:12 86 20 96/59 L 93 01/30/21 06:11 81 16 93/61 L 96 01/30/21 05:42 80 14 95/57 L 95 01/30/21 05:13 85 20 107/65 90 01/30/21 04:42 36.7 C 85 22 123/64 94 01/30/21 04:12 82 18 96/62 L 98 01/30/21 03:41 82 15 111/66 97 01/30/21 03:11 79 13 91/56 L 98 01/30/21 02:41 81 16 90/64 L 98 01/30/21 02:12 82 12 103/65 98 01/30/21 01:42 80 22 91/55 L 98 01/30/21 01:11 84 17 91/56 L 98 01/30/21 00:42 83 21 90/59 L 98 Laboratory Results Laboratory Results - last 24 hr 01/29/21 01/29/21 01/29/21 12:08 12:08 12:08 WBC RBC Hgb Hct MCV MCH MCHC RDW Std Deviation RDW Coeff of Bo Plt Count MPV Immature Gran % (Auto) Neut % (Auto) Lymph % (Auto) [place] % (Auto) Eos % (Auto) Baso % (Auto) Neut # (Auto) Lymph # (Auto) [place] # (Auto) Eos # (Auto) Baso # (Auto) Immature Gran # (Auto) PT 10.3 INR 1.0 APTT 23.1 PTT Ratio 0.9 Sodium 133 L Potassium 3.9 Chloride 93 L Carbon Dioxide 34 H Anion Gap 6.0 BUN 59 H Creatinine 3.64 H Est Cr Clr Drug Dosing Not Reportable Est GFR ( Amer) 14.0 Est GFR (Non-Af Amer) 12.0 BUN/Creatinine Ratio 16.3 Glucose 109 H POC Glucose Lactate Calcium 9.9 Phosphorus Magnesium 1.7 L Total Bilirubin 0.5 AST 28 ALT 26 Alkaline Phosphatase 66 Troponin I 0.159 H* Total Protein 7.2 Albumin 2.9 L Globulin 4.3 H Albumin/Globulin Ratio 0.7 L Procalcitonin 0.51 H Urine Color Urine Appearance Urine pH Ur Specific Cameron Urine Protein Urine Glucose (UA) Urine Ketones Urine Blood Urine Nitrite Urine Bilirubin Urine Urobilinogen Ur Leukocyte Esterase Urine WBC (Auto) Urine RBC (Auto) U Hyaline Cast (Auto) U Epithel Cells (Auto) Urine Bacteria (Auto) Ur Renal Epithelial Cell Urine Yeast Nasal Screen MRSA (PCR) COVID-19 Eval Order SARS-CoV-2 (PCR) 01/29/21 01/29/21 01/29/21 12:08 13:06 13:06 WBC RBC Hgb Hct MCV MCH MCHC RDW Std Deviation RDW Coeff of Bo Plt Count MPV Immature Gran % (Auto) Neut % (Auto) Lymph % (Auto) [place] % (Auto) Eos % (Auto) Baso % (Auto) Neut # (Auto) Lymph # (Auto) [place] # (Auto) Eos # (Auto) Baso # (Auto) Immature Gran # (Auto) PT INR APTT PTT Ratio Sodium Potassium Chloride Carbon Dioxide Anion Gap BUN Creatinine Est Cr Clr Drug Dosing Est GFR ( Amer) Est GFR (Non-Af Amer) BUN/Creatinine Ratio Glucose POC Glucose Lactate 3.5 H* Calcium Phosphorus Magnesium Total Bilirubin AST ALT Alkaline Phosphatase Troponin I Total Protein Albumin Globulin Albumin/Globulin Ratio Procalcitonin Urine Color Urine Appearance Urine pH Ur Specific Cameron Urine Protein Urine Glucose (UA) Urine Ketones Urine Blood Urine Nitrite Urine Bilirubin Urine Urobilinogen Ur Leukocyte Esterase Urine WBC (Auto) Urine RBC (Auto) U Hyaline Cast (Auto) U Epithel Cells (Auto) Urine Bacteria (Auto) Ur Renal Epithelial Cell Urine Yeast Nasal Screen MRSA (PCR) COVID-19 Eval Order Covid19 at [facility] SARS-CoV-2 (PCR) NEGATIVE 01/29/21 01/29/21 01/29/21 17:45 18:01 18:01 WBC 10.24 RBC 3.63 L Hgb 10.9 L Hct 33.4 L MCV 92.0 MCH 30.0 MCHC 32.6 RDW Std Deviation 48.4 H RDW Coeff of Bo 14.3 Plt Count 145 MPV 11.5 H Immature Gran % (Auto) 0.2 Neut % (Auto) 88.4 Lymph % (Auto) 6.8 [place] % (Auto) 4.1 Eos % (Auto) 0.4 Baso % (Auto) 0.1 Neut # (Auto) 9.05 H Lymph # (Auto) 0.70 L [place] # (Auto) 0.42 Eos # (Auto) 0.04 Baso # (Auto) 0.01 Immature Gran # (Auto) 0.02 PT INR APTT PTT Ratio Sodium Potassium Chloride Carbon Dioxide Anion Gap BUN Creatinine Est Cr Clr Drug Dosing Est GFR ( Amer) Est GFR (Non-Af Amer) BUN/Creatinine Ratio Glucose POC Glucose Lactate 1.0 Calcium Phosphorus Magnesium Total Bilirubin AST ALT Alkaline Phosphatase Troponin I Total Protein Albumin Globulin Albumin/Globulin Ratio Procalcitonin Urine Color Urine Appearance Urine pH Ur Specific Cameron Urine Protein Urine Glucose (UA) Urine Ketones Urine Blood Urine Nitrite Urine Bilirubin Urine Urobilinogen Ur Leukocyte Esterase Urine WBC (Auto) Urine RBC (Auto) U Hyaline Cast (Auto) U Epithel Cells (Auto) Urine Bacteria (Auto) Ur Renal Epithelial Cell Urine Yeast Nasal Screen MRSA (PCR) Negative COVID-19 Eval Order SARS-CoV-2 (PCR) 01/29/21 01/29/21 01/30/21 18:01 19:15 00:18 WBC RBC Hgb Hct MCV MCH MCHC RDW Std Deviation RDW Coeff of Bo Plt Count MPV Immature Gran % (Auto) Neut % (Auto) Lymph % (Auto) [place] % (Auto) Eos % (Auto) Baso % (Auto) Neut # (Auto) Lymph # (Auto) [place] # (Auto) Eos # (Auto) Baso # (Auto) Immature Gran # (Auto) PT INR APTT PTT Ratio Sodium 141 D Potassium 4.1 Chloride 100 Carbon Dioxide 32 Anion Gap 9.0 BUN 54 H Creatinine 3.11 H D Est Cr Clr Drug Dosing 12.9 Est GFR ( Amer) 16.9 Est GFR (Non-Af Amer) 14.6 BUN/Creatinine Ratio 17.4 Glucose 97 POC Glucose 126 H Lactate Calcium 8.2 L D Phosphorus 4.2 Magnesium 1.7 L Total Bilirubin 0.4 AST 23 ALT 24 Alkaline Phosphatase 52 Troponin I Total Protein 5.8 L Albumin 2.2 L Globulin 3.6 Albumin/Globulin Ratio 0.6 L Procalcitonin Urine Color Dark Yellow Urine Appearance Cloudy A Urine pH 5.0 Ur Specific Cameron 1.022 Urine Protein 2+ H Urine Glucose (UA) Negative Urine Ketones Trace H Urine Blood Negative Urine Nitrite Negative Urine Bilirubin Negative Urine Urobilinogen Negative Ur Leukocyte Esterase 1+ H Urine WBC (Auto) 10-30 H Urine RBC (Auto) 5-10 H U Hyaline Cast (Auto) 10-30 H U Epithel Cells (Auto) >30 H Urine Bacteria (Auto) Negative Ur Renal Epithelial Cell Not Reportable Urine Yeast Not Reportable Nasal Screen MRSA (PCR) COVID-19 Eval Order SARS-CoV-2 (PCR) 01/30/21 01/30/21 01/30/21 05:00 05:00 06:35 WBC 11.44 H RBC 3.69 L Hgb 10.9 L Hct 34.4 L MCV 93.2 MCH 29.5 MCHC 31.7 L RDW Std Deviation RDW Coeff of Bo Plt Count 149 MPV Immature Gran % (Auto) 0.2 Neut % (Auto) 85.7 Lymph % (Auto) 8.9 [place] % (Auto) 5.2 Eos % (Auto) 0.0 Baso % (Auto) 0.0 Neut # (Auto) 9.81 H Lymph # (Auto) 1.02 L [place] # (Auto) 0.59 Eos # (Auto) 0.00 Baso # (Auto) 0.00 Immature Gran # (Auto) 0.02 PT INR APTT PTT Ratio Sodium 140 Potassium 4.1 Chloride 98 Carbon Dioxide 34 H Anion Gap 8.0 BUN 57 H Creatinine 3.65 H D Est Cr Clr Drug Dosing 11.0 Est GFR ( Amer) 13.9 Est GFR (Non-Af Amer) 12.0 BUN/Creatinine Ratio 15.5 Glucose 112 H POC Glucose Lactate Calcium 7.8 L Phosphorus 5.8 H D Magnesium 2.6 H Total Bilirubin 0.3 AST 23 ALT 20 Alkaline Phosphatase 51 Troponin I Total Protein 5.8 L Albumin 2.1 L Globulin 3.7 Albumin/Globulin Ratio 0.6 L Procalcitonin Urine Color Urine Appearance Urine pH Ur Specific Cameron Urine Protein Urine Glucose (UA) Urine Ketones Urine Blood Urine Nitrite Urine Bilirubin Urine Urobilinogen Ur Leukocyte Esterase Urine WBC (Auto) Urine RBC (Auto) U Hyaline Cast (Auto) U Epithel Cells (Auto) Urine Bacteria (Auto) Ur Renal Epithelial Cell Urine Yeast Nasal Screen MRSA (PCR) COVID-19 Eval Order SARS-CoV-2 (PCR) 01/30/21 01/30/21 06:35 11:28 WBC RBC Hgb Hct MCV MCH MCHC RDW Std Deviation RDW Coeff of Bo Plt Count MPV Immature Gran % (Auto) Neut % (Auto) Lymph % (Auto) [place] % (Auto) Eos % (Auto) Baso % (Auto) Neut # (Auto) Lymph # (Auto) [place] # (Auto) Eos # (Auto) Baso # (Auto) Immature Gran # (Auto) PT INR APTT PTT Ratio Sodium Potassium Chloride Carbon Dioxide Anion Gap BUN Creatinine Est Cr Clr Drug Dosing Est GFR ( Amer) Est GFR (Non-Af Amer) BUN/Creatinine Ratio Glucose POC Glucose 73 Lactate Calcium Phosphorus Magnesium Total Bilirubin AST ALT Alkaline Phosphatase Troponin I 0.270 H* Total Protein Albumin Globulin Albumin/Globulin Ratio Procalcitonin Urine Color Urine Appearance Urine pH Ur Specific [place] Urine Protein Urine Glucose (UA) Urine Ketones Urine Blood Urine Nitrite Urine Bilirubin Urine Urobilinogen Ur Leukocyte Esterase Urine WBC (Auto) Urine RBC (Auto) U Hyaline Cast (Auto) U Epithel Cells (Auto) Urine Bacteria (Auto) Ur Renal Epithelial Cell Urine Yeast Nasal Screen MRSA (PCR) COVID-19 Eval Order SARS-CoV-2 (PCR) Diagnostic Findings CT OF THE ABDOMEN AND PELVIS WITHOUT CONTRAST CLINICAL HISTORY: Abdominal pain, nausea and vomiting. COMPARISON STUDY: CT of the abdomen and pelvis March 10, 2020. TECHNIQUE: Axial images of the abdomen and pelvis were obtained without IV contrast. Images were reviewed in the axial, sagittal, and coronal planes. Automated exposure control was utilized for the study. A dose lowering technique was utilized adhering to the principles of ALARA. FINDINGS: Visualized portions of the lung bases demonstrate mild multifocal groundglass opacities. There is a calcified granuloma within the right lower lobe. Evaluation of the abdomen and pelvis is suboptimal on this unenhanced exam. A small amount of pneumoperitoneum is noted. In addition, there is extensive pneumatosis of numerous small bowel loops. The proximal to mid small bowel is moderately dilated and fluid-filled. A well-defined transition point is not identified however the findings favor an underlying small bowel obstruction. There are postoperative findings from a right hemicolectomy. The stomach is mildly distended and fluid-filled. There are calcified cannula was within the spleen. Mild dilatation of the common bile duct is likely related to cholecystectomy. Small bilateral renal calculi measure up to 5 mm. There are no ureteral calculi. There is a cyst within the midpole of the left kidney. A hyperdense 1.3 cm lesion within the upper pole of the left kidney favors a hyperdense cyst when correlating with prior contrast enhanced CT. There is extensive colonic diverticulosis without evidence for acute diverticulitis. There is no free fluid. There is no abscess. Nodularity of the left adrenal gland is unchanged. No acute fracture or suspicious lesion is identified within visualized skeletal structures. IMPRESSION: 1. Excessive pneumatosis of multiple small bowel loops with small amount of associated pneumoperitoneum. Although pneumatosis is nonspecific, the findings are highly suggestive of small bowel ischemia with bowel perforation. Surgical consultation is recommended. Moderately dilated fluid-filled proximal to mid small bowel favors an underlying small bowel obstruction although a discrete transition point is not identified. Findings discussed with Dr. Cochran at time of dictation. 2. Mild groundglass opacities within the lower lungs which favor an infectious process or aspiration. 3. Bilateral nephrolithiasis. No ureteral calculi. No hydronephrosis. PG Care Time/CCT Total # of Minutes Spent Total Time Spent with Patient: Total time spent is greater than 50% in coordination of care (as documented) at patient's floor/unit and/or counseling patient: Coding Level of Care Code 70785 Inpt Consult Level 4 Diagnoses TAB (acute kidney injury) N17.9
--- NOTE | 2021-01-30 15:24 | Hospitalist Consultation ---
Date of Consultation January 30, 2021 Assessment & Plan (1) Sepsis: Admitted 01/29 with concerns for bowel perforation on imaging following n/v with reported 4 garbage cans full of vomit. On admission, was hypotensive with BP 78/54 with Lactic 3.5, BUN/Cr 59/3.6 (baseline Cr ~1) WBC was 14.4k CTAP with excessive pneumatosis of multiple small bowel loops with small amount of associated pneumoperitoneum. Although pneumatosis is nonspecific, the findings are highly suggestive of small bowel ischemia with bowel perforation. Surgical consultation is recommended. Moderately dilated fluid-filled proximal to mid small bowel favors an underlying small bowel obstruction although a discrete transition point is not identified. Findings discussed with Dr. Cochran at time of dictation. POD1 s/p Exploratory laparotomy with lysis of adhesions with Dr. Cabrera and ICU post-operative for management given complex history/possible need for continued monitoring (extubated post-op) --> no evidence of ischemic/infectious disease during thankfully but did have some banding that could have been contributing (lysis of adhesions undertaken) PT/OT/pain management per primary DVT prevention with Heparin SQ On Cefoxitin Trop elevated 0.159 on admission --> 0.27 and will trend. No CP/SOB reported. EKG stable. NSR on monitor Was on hydrocortisone 50mg Q12 as she is on prednisone 10mg daily for stress dosing --> was changed back to usual 10mg dose to start tomorrow but given borderline low BP and hypovolemic shock will change back to Q12 for at least next 24 hours. Nephrology on consult given ATN/elevated Cr --> IVF changed to Normosol this morning to encourage positive fluid balance --> increased to 125cc/hr this afternoon given dry mm and low normal urine output Repeat urine cx pending (placement of johns since initial). No need for SERVICE WRITER at this time and renally dose meds as able. Volume status improving Encouraging incentive spirometer --> she had not be using frequently and watched with improvement of use. Rec continuing use given bibasilar crackles on exam --> Of note, mild groundglass opacities within the lower lungs which favor an infectious process or aspiration and could be from all the vomiting --> Wean O2 as tolerated but if any shortness of breath/worsening respiratory st atus low threshold for repeat imaging/broaded abx coverage Will add famotidine IVP daily for GI prophylaxis given reported reflux and taking Tums prior to admission. Close monitoring of vitals/electrolytes and replacement as needed (2) Hypovolemic shock: 2nd to dehydration/vomiting/above BPs improving -- currently 100/59 Treatment as above (3) TAB (acute kidney injury): baseline cr close to 1 Currently Cr >3.5 IVF changed to Normosol, increased this afternoon Nephrology on consult -- appreciate continued assistance BMP in AM (4) Bowel perforation: concerns for as above given imaging. no perforation during OR per report (5) Chronic obstructive asthma: continue usual inhaler (6) Mixed connective tissue disease: plaquenil on hold Follows with [facility] Stress dose steroids with hydrocortisone 50mg IV BID for now then transition back to usual 10mg prednisone daily in next 24-48 hours. (7) DVT prophylaxis: Heparin SQ (8) Elevated troponin: suspect 2nd to demand/hypovolemic shock as above No CP reported EKG stable from prior Dec 2019, PACs no longer present Repeat 0.27 and will trend Continued monitoring on telemetry EKG with CP Downgraded to PCU Hospitalist service will continue to monitor/follow along Supervising Physician Co-Signing Physician Notes Attending Attestation- Pt seen/examined, chart reviewed, care plan d/w MARLI Islas. I agree w/ the huston components of her documentation. 70yo female with COPD, h/o right-sided hemicolectomy due to bowel perf from colonoscopy, MCTD on chronic prednisone - presented with prolific vomiting, hypotension, tachycardia, and CT findings concerning for SBO with perforation. Taken to OR by Dr Cabrera for ex lap, no perf found, and admitted to ICU after. Needed fluid resuscitation for shock. Received stress dose steroids in the setting of above due to chronic prednisone use. Developed ATN in setting of shock with peak Cr of 3.6. I saw the patient in ICU this evening. Was having abdominal discomfort (incisional). Also with hypoglycemia. BPs stable during my visit. PMH, PSH, allergies, meds, sochx, famhx - reviewed vitals - BPs stable, O2 sats stable gen - thin, NAD, pleasant HENT - NG tube in place; MM dry neck - no JVD heart - RRR, s1 s2 lungs - decreased BS bases abd - distended, BS decreased, dressings intact, incisional tenderness ext - no edema, pulses 2+ b/l labs - reviewed imaging reviewed A/P: 1. shock - resolved; 2nd to #2. 2. SBO with concern for perforation - s/p ex lap by Dr Cabrera; ADOLFO performed, bowel was run and no perf seen. 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 3. hypoglycemia - add dextrose to current IVF. 4. ATN - supportive care, IVF, serial labs. 5. MCTD - agree w/ stress-dose steroids for at least another 48 hours. Agree w/ holding plaquenil. 6. COPD - stable. 7. DVT proph - defer to primary attending/surgery. Thank you for the consult. medicine will follow. Colt Holt MD History of Present Illness Reason for Consultation: post- ICU management Requesting Physician: Dr Cabrera Attending Physician: Luis Armando Cabrera MD, [facility] History of Present Illness 70yo female with PMHx significant PMHx for mixed connective tissue disease, COPD-asthma, prior bowel perforation 10/18/19 after c-scope requiring RIGHT hemicolectomy after transfer to [facility] (requiring TPN at discharge for several weeks after week of hospitalization and found to have pneumatosis intestinalis and had ex lap for lysis of adhesions Dec 2019) then in February 2020 again transferred for SBO and was on bowel rest for a week prior to starting back on diet after starting reglan and discharged March 22, 2020 from [facility]. Prior to admission: Patient had been doing generally well at home (lives alone) but had admitted to taking up to 4 tums daily for symptoms of reflux and then developed abdominal pain with profuse vomiting. (Reports would like to avoid PPI as "tums are easier to chew" but denies dysphagia/difficulty or pain with swallowing). She reports FOUR GARBAGE BAGS full of projectile bilious vomiting with associated "period cramps" which "we all know in a woman in her 60s isn't a period". She did not have any known fevers but denied having taking her temperature at home. She notes her sister was barely able to assist getting her up because she was so weak. She presented to ER and imaging concerning for perforated bowel along with hypotension and tachycardia with elevated lactic/BUN/Cr consistent with hypovolemic shock. Underwent ex lap with Dr. Cabrera on 10/4 which did not show any ischemic bowel or evidence of infection. Was maintained on Zosyn then given dose of Cefoxitin in trish-operative period. She continues with NGT presently, continuing to drain bilious material. States abdominal pain present but primarily trish-incisional and controlled with ordered medications. NOT PASSING ANY GAS but reports frequent at home daily. Making urine but borderline decreased output after switching to Normosol this morning per nephrology recs and BPs have improved. She denies any fever, chills, chest pain, shortness of breath (encouraging incentive spirometer which she states was unable to even budge but was able to demonstrate good movement but decreased TV but instructed to continue use to help prevent pulmonary toilet). No cough or sputum production. No appetite. Plans per primary for PICC line and initiation of TPN given prior episodes requiring and CM following to help arrange TPN likely at discharge given history. Downgraded to PCU this morning at recs by road traffic controller but may not have bed available on PCU just yet and may remain in ICU as PCU patient. Nephrology on board given ATN/elevated CR for recs for fluid resuscitation. Increased this evening to 125cc/hrr for now. For her mixed connective tissue disorder she follows with Dr. Kyle and states has been on hydroxychloroquine and prednisone for approximately 3 years. She also states her Tool Specialist has her take an antibiotic 5 times a month on the same day alough does not appear to be on her medication list. ?If weekly Vitamin D is what she may be referring to. Allergies Allergy/AdvReac Type Severity Reaction Status Date / Time latex Allergy Unknown _ Verified 01/29/21 13:14 leflunomide AdvReac Unknown Unknown Verified 01/29/21 13:14 Home Medications Medication Instructions Recorded Confirmed Type budesonide-formoterol HFA 160 1 puff INHALATION DIRECTED 10/19/19 01/29/21 History mcg-4.5 mcg/actuation aerosol inhaler (Symbicort) hydroxychloroquine 200 mg tablet 200 mg PO DAILY 03/10/20 01/29/21 History ergocalciferol (vitamin D2) 1,250 50,000 unit PO .QTUESDAY 01/29/21 01/29/21 History mcg (50,000 unit) capsule prednisone 10 mg tablet 10 mg PO DAILY 01/29/21 01/29/21 History pregabalin 75 mg capsule 75 mg PO DAILY 01/29/21 01/29/21 History Patient History Medical History Chronic obstructive asthma Heart disease Kidney stones Mixed connective tissue disease Surgical History History of ankle surgery History of bowel resection X 2 AT [facility] S/P PERFORATION AFTER COLONOSCOPY History of laparotomy (01/29/21) Exploratory laparotomy with lysis of adhesions. Dr. Cabrera 01/29/2021 History of lithotripsy renal S/P cataract surgery S/P cholecystectomy Family History Mother Squamous cell carcinoma Uterine cancer Breast cancer Hypertension Father Squamous cell carcinoma Breast cancer Hypertension Diabetes Cardiac disorder Family/Other Uterine cancer Breast cancer Denies family history of Ovarian cancer Colorectal cancer Social History Smoking Status: Former smoker Smoking End Date: 1990; Hx Alcohol Use: No Hx Substance Use: No Preferred Language: Kazakh Communication Ability: Effective Automated Cutting Machine Operator Required: No Beliefs That Will Affect Care: None marital status: Current Living Situation: Alone Other Information That Helps Us Care for You: No Feels Safe at Home: Yes Safety Concerns: Feels Safe At This Time Assistive Devices: Glasses and Oxygen - Continuous Review of Systems Review of Systems: All systems reviewed & are unremarkable except as noted in HPI & below Physical Exam Constitutional: well developed, + thin and cooperative; no acute distress Eyes: no scleral abnormality and no corneal abnormality ENMT: Mouth: + dry oral mucous membranes; no oral mucosal abnormality NGT with bilious drainage Neck: normal visual inspection and trachea midline Respiratory: normal respiratory effort Auscultation: lungs clear to auscultation bilaterally (with poor inspitatory effort and faint bibasilar crackles. on 2L NC) Cardiovascular: Rate/Rhythm: regular rate Heart Sounds: normal S1 and normal S2 Extremities: no edema Gastrointestinal (Abdomen): hypoactive bowel sounds, +distended, dressing c/d/i, tender to palpation trish-incisional, no guarding or rigidity Musculoskeletal: Extremities: no cyanosis and no clubbing Skin: normal turgor; no lesions Neurologic: Motor/Sensory: no tremor and no asterixis Psychiatric: Orientation: alert and oriented x 3 Genitourinary: johns draining small amount clear/yellow urine Results & Data Results & Data ([facility]) Vital Signs (Past 12 Hours) Vital Signs Temp Pulse Resp BP Pulse Ox 01/30/21 10:42 89 20 100/59 L 96 01/30/21 10:11 81 11 L 104/63 93 01/30/21 09:42 80 17 96/60 L 97 01/30/21 09:12 85 21 112/62 93 01/30/21 08:42 79 16 100/55 L 95 01/30/21 08:11 36.2 C L 79 17 92/56 L 96 01/30/21 08:00 79 01/30/21 07:41 81 13 95/57 L 96 01/30/21 07:12 86 20 96/59 L 93 01/30/21 06:11 81 16 93/61 L 96 01/30/21 05:42 80 14 95/57 L 95 01/30/21 05:13 85 20 107/65 90 01/30/21 04:42 36.7 C 85 22 123/64 94 01/30/21 04:12 82 18 96/62 L 98 01/30/21 03:41 82 15 111/66 97 01/30/21 03:11 79 13 91/56 L 98 Laboratory Results 01/30/21 01/30/21 01/30/21 Range/Units 15:09 14:10 11:28 WBC (4.8-10.8) K/uL RBC (4.2-5.4) M/uL Hgb (12.0-16.0) g/dL Hct (37-47) % MCV (80-100) fL MCH (25-34) pg MCHC (32-36) g/dL RDW Std Deviation (36.4-46.3) fL RDW Coeff of Bo (11.5-14.5) % Plt Count (130-400) K/uL MPV (7.4-10.4) fL Immature Gran % (Auto) % Neut % (Auto) % Lymph % (Auto) % Kings % (Auto) % Eos % (Auto) % Baso % (Auto) % Neut # (Auto) (1.4-6.5) K/uL Lymph # (Auto) (1.2-3.4) K/uL Kings # (Auto) (0.11-0.59) K/uL Eos # (Auto) (0-0.5) K/uL Baso # (Auto) (0-0.2) K/uL Immature Gran # (Auto) (0.00-0.02) K/uL Sodium (136-145) mmol/L Potassium (3.5-5.1) mmol/L Chloride (98-107) mmol/L Carbon Dioxide (21-32) mmol/L Anion Gap (3-11) BUN (7-18) mg/dl Creatinine (0.6-1.2) mg/dl Est Cr Clr Drug Dosing ml/min Est GFR ( Amer) ml/min Est GFR (Non-Af Amer) ml/min BUN/Creatinine Ratio (10-20) Glucose (70-99) mg/dl POC Glucose 73 (70-99) mg/dl Lactate (0.4-2.0) mmol/L Calcium (8.5-10.1) mg/dl Phosphorus (2.5-4.9) mg/dl Magnesium (1.8-2.4) mg/dl Total Bilirubin (0.2-1) mg/dl AST (15-37) U/L ALT (12-78) U/L Alkaline Phosphatase (45-117) U/L Troponin I Pending (0-0.045) ng/ml Total Protein (6.4-8.2) gm/dl Albumin (3.4-5.0) gm/dl Globulin (2.5-4.0) gm/dl Albumin/Globulin Ratio (0.9-2) Urine Color Pending Urine Appearance Pending (Clear) Urine pH Pending (4.5-7.5) Ur Specific [place] Pending (1.000-1.030) Urine Protein Pending (Negative) Urine Glucose (UA) Pending (Negative) Urine Ketones Pending (Negative) Urine Blood Pending (Negative) Urine Nitrite Pending (Negative) Urine Bilirubin Pending (Negative) Urine Urobilinogen Pending (Negative) Ur Leukocyte Esterase Pending (Negative) Urine WBC (Auto) (0-5) /hpf Urine RBC (Auto) (0-4) /hpf U Hyaline Cast (Auto) (0-5) /lpf U Epithel Cells (Auto) (0-5) /lpf Urine Bacteria (Auto) (Negative) Ur Renal Epithelial Cell Urine Yeast Nasal Screen MRSA (PCR) (Negative) 01/30/21 01/30/21 01/30/21 Range/Units 06:35 06:35 05:00 WBC 11.44 H (4.8-10.8) K/uL RBC 3.69 L (4.2-5.4) M/uL Hgb 10.9 L (12.0-16.0) g/dL Hct 34.4 L (37-47) % MCV 93.2 (80-100) fL MCH 29.5 (25-34) pg MCHC 31.7 L (32-36) g/dL RDW Std Deviation (36.4-46.3) fL RDW Coeff of Bo (11.5-14.5) % Plt Count 149 (130-400) K/uL MPV (7.4-10.4) fL Immature Gran % (Auto) 0.2 % Neut % (Auto) 85.7 % Lymph % (Auto) 8.9 % Kings % (Auto) 5.2 % Eos % (Auto) 0.0 % Baso % (Auto) 0.0 % Neut # (Auto) 9.81 H (1.4-6.5) K/uL Lymph # (Auto) 1.02 L (1.2-3.4) K/uL Kings # (Auto) 0.59 (0.11-0.59) K/uL Eos # (Auto) 0.00 (0-0.5) K/uL Baso # (Auto) 0.00 (0-0.2) K/uL Immature Gran # (Auto) 0.02 (0.00-0.02) K/uL Sodium (136-145) mmol/L Potassium 4.1 (3.5-5.1) mmol/L Chloride (98-107) mmol/L Carbon Dioxide (21-32) mmol/L Anion Gap (3-11) BUN (7-18) mg/dl Creatinine (0.6-1.2) mg/dl Est Cr Clr Drug Dosing ml/min Est GFR ( Amer) ml/min Est GFR (Non-Af Amer) ml/min BUN/Creatinine Ratio (10-20) Glucose (70-99) mg/dl POC Glucose (70-99) mg/dl Lactate (0.4-2.0) mmol/L Calcium (8.5-10.1) mg/dl Phosphorus (2.5-4.9) mg/dl Magnesium 2.6 H (1.8-2.4) mg/dl Total Bilirubin (0.2-1) mg/dl AST 23 (15-37) U/L ALT (12-78) U/L Alkaline Phosphatase (45-117) U/L Troponin I 0.270 H* (0-0.045) ng/ml Total Protein (6.4-8.2) gm/dl Albumin (3.4-5.0) gm/dl Globulin (2.5-4.0) gm/dl Albumin/Globulin Ratio (0.9-2) Urine Color Urine Appearance (Clear) Urine pH (4.5-7.5) Ur Specific [place] (1.000-1.030) Urine Protein (Negative) Urine Glucose (UA) (Negative) Urine Ketones (Negative) Urine Blood (Negative) Urine Nitrite (Negative) Urine Bilirubin (Negative) Urine Urobilinogen (Negative) Ur Leukocyte Esterase (Negative) Urine WBC (Auto) (0-5) /hpf Urine RBC (Auto) (0-4) /hpf U Hyaline Cast (Auto) (0-5) /lpf U Epithel Cells (Auto) (0-5) /lpf Urine Bacteria (Auto) (Negative) Ur Renal Epithelial Cell Urine Yeast Nasal Screen MRSA (PCR) (Negative) 01/30/21 01/30/21 01/29/21 Range/Units 05:00 00:18 19:15 WBC (4.8-10.8) K/uL RBC (4.2-5.4) M/uL Hgb (12.0-16.0) g/dL Hct (37-47) % MCV (80-100) fL MCH (25-34) pg MCHC (32-36) g/dL RDW Std Deviation (36.4-46.3) fL RDW Coeff of Bo (11.5-14.5) % Plt Count (130-400) K/uL MPV (7.4-10.4) fL Immature Gran % (Auto) % Neut % (Auto) % Lymph % (Auto) % Kings % (Auto) % Eos % (Auto) % Baso % (Auto) % Neut # (Auto) (1.4-6.5) K/uL Lymph # (Auto) (1.2-3.4) K/uL Kings # (Auto) (0.11-0.59) K/uL Eos # (Auto) (0-0.5) K/uL Baso # (Auto) (0-0.2) K/uL Immature Gran # (Auto) (0.00-0.02) K/uL Sodium 140 (136-145) mmol/L Potassium (3.5-5.1) mmol/L Chloride 98 (98-107) mmol/L Carbon Dioxide 34 H (21-32) mmol/L Anion Gap 8.0 (3-11) BUN 57 H (7-18) mg/dl Creatinine 3.65 H D (0.6-1.2) mg/dl Est Cr Clr Drug Dosing 11.0 ml/min Est GFR ( Amer) 13.9 ml/min Est GFR (Non-Af Amer) 12.0 ml/min BUN/Creatinine Ratio 15.5 (10-20) Glucose 112 H (70-99) mg/dl POC Glucose 126 H (70-99) mg/dl Lactate (0.4-2.0) mmol/L Calcium 7.8 L (8.5-10.1) mg/dl Phosphorus 5.8 H D (2.5-4.9) mg/dl Magnesium (1.8-2.4) mg/dl Total Bilirubin 0.3 (0.2-1) mg/dl AST (15-37) U/L ALT 20 (12-78) U/L Alkaline Phosphatase 51 (45-117) U/L Troponin I (0-0.045) ng/ml Total Protein 5.8 L (6.4-8.2) gm/dl Albumin 2.1 L (3.4-5.0) gm/dl Globulin 3.7 (2.5-4.0) gm/dl Albumin/Globulin Ratio 0.6 L (0.9-2) Urine Color Dark Yellow Urine Appearance Cloudy A (Clear) Urine pH 5.0 (4.5-7.5) Ur Specific [place] 1.022 (1.000-1.030) Urine Protein 2+ H (Negative) Urine Glucose (UA) Negative (Negative) Urine Ketones Trace H (Negative) Urine Blood Negative (Negative) Urine Nitrite Negative (Negative) Urine Bilirubin Negative (Negative) Urine Urobilinogen Negative (Negative) Ur Leukocyte Esterase 1+ H (Negative) Urine WBC (Auto) 10-30 H (0-5) /hpf Urine RBC (Auto) 5-10 H (0-4) /hpf U Hyaline Cast (Auto) 10-30 H (0-5) /lpf U Epithel Cells (Auto) >30 H (0-5) /lpf Urine Bacteria (Auto) Negative (Negative) Ur Renal Epithelial Cell Not Reportable Urine Yeast Not Reportable Nasal Screen MRSA (PCR) (Negative) 01/29/21 01/29/21 01/29/21 Range/Units 18:01 18:01 18:01 WBC 10.24 (4.8-10.8) K/uL RBC 3.63 L (4.2-5.4) M/uL Hgb 10.9 L (12.0-16.0) g/dL Hct 33.4 L (37-47) % MCV 92.0 (80-100) fL MCH 30.0 (25-34) pg MCHC 32.6 (32-36) g/dL RDW Std Deviation 48.4 H (36.4-46.3) fL RDW Coeff of Bo 14.3 (11.5-14.5) % Plt Count 145 (130-400) K/uL MPV 11.5 H (7.4-10.4) fL Immature Gran % (Auto) 0.2 % Neut % (Auto) 88.4 % Lymph % (Auto) 6.8 % Kings % (Auto) 4.1 % Eos % (Auto) 0.4 % Baso % (Auto) 0.1 % Neut # (Auto) 9.05 H (1.4-6.5) K/uL Lymph # (Auto) 0.70 L (1.2-3.4) K/uL Kings # (Auto) 0.42 (0.11-0.59) K/uL Eos # (Auto) 0.04 (0-0.5) K/uL Baso # (Auto) 0.01 (0-0.2) K/uL Immature Gran # (Auto) 0.02 (0.00-0.02) K/uL Sodium 141 D (136-145) mmol/L Potassium 4.1 (3.5-5.1) mmol/L Chloride 100 (98-107) mmol/L Carbon Dioxide 32 (21-32) mmol/L Anion Gap 9.0 (3-11) BUN 54 H (7-18) mg/dl Creatinine 3.11 H D (0.6-1.2) mg/dl Est Cr Clr Drug Dosing 12.9 ml/min Est GFR ( Amer) 16.9 ml/min Est GFR (Non-Af Amer) 14.6 ml/min BUN/Creatinine Ratio 17.4 (10-20) Glucose 97 (70-99) mg/dl POC Glucose (70-99) mg/dl Lactate 1.0 (0.4-2.0) mmol/L Calcium 8.2 L D (8.5-10.1) mg/dl Phosphorus 4.2 (2.5-4.9) mg/dl Magnesium 1.7 L (1.8-2.4) mg/dl Total Bilirubin 0.4 (0.2-1) mg/dl AST 23 (15-37) U/L ALT 24 (12-78) U/L Alkaline Phosphatase 52 (45-117) U/L Troponin I (0-0.045) ng/ml Total Protein 5.8 L (6.4-8.2) gm/dl Albumin 2.2 L (3.4-5.0) gm/dl Globulin 3.6 (2.5-4.0) gm/dl Albumin/Globulin Ratio 0.6 L (0.9-2) Urine Color Urine Appearance (Clear) Urine pH (4.5-7.5) Ur Specific [place] (1.000-1.030) Urine Protein (Negative) Urine Glucose (UA) (Negative) Urine Ketones (Negative) Urine Blood (Negative) Urine Nitrite (Negative) Urine Bilirubin (Negative) Urine Urobilinogen (Negative) Ur Leukocyte Esterase (Negative) Urine WBC (Auto) (0-5) /hpf Urine RBC (Auto) (0-4) /hpf U Hyaline Cast (Auto) (0-5) /lpf U Epithel Cells (Auto) (0-5) /lpf Urine Bacteria (Auto) (Negative) Ur Renal Epithelial Cell Urine Yeast Nasal Screen MRSA (PCR) (Negative) 01/29/21 Range/Units 17:45 WBC (4.8-10.8) K/uL RBC (4.2-5.4) M/uL Hgb (12.0-16.0) g/dL Hct (37-47) % MCV (80-100) fL MCH (25-34) pg MCHC (32-36) g/dL RDW Std Deviation (36.4-46.3) fL RDW Coeff of Bo (11.5-14.5) % Plt Count (130-400) K/uL MPV (7.4-10.4) fL Immature Gran % (Auto) % Neut % (Auto) % Lymph % (Auto) % Kings % (Auto) % Eos % (Auto) % Baso % (Auto) % Neut # (Auto) (1.4-6.5) K/uL Lymph # (Auto) (1.2-3.4) K/uL Kings # (Auto) (0.11-0.59) K/uL Eos # (Auto) (0-0.5) K/uL Baso # (Auto) (0-0.2) K/uL Immature Gran # (Auto) (0.00-0.02) K/uL Sodium (136-145) mmol/L Potassium (3.5-5.1) mmol/L Chloride (98-107) mmol/L Carbon Dioxide (21-32) mmol/L Anion Gap (3-11) BUN (7-18) mg/dl Creatinine (0.6-1.2) mg/dl Est Cr Clr Drug Dosing ml/min Est GFR ( Amer) ml/min Est GFR (Non-Af Amer) ml/min BUN/Creatinine Ratio (10-20) Glucose (70-99) mg/dl POC Glucose (70-99) mg/dl Lactate (0.4-2.0) mmol/L Calcium (8.5-10.1) mg/dl Phosphorus (2.5-4.9) mg/dl Magnesium (1.8-2.4) mg/dl Total Bilirubin (0.2-1) mg/dl AST (15-37) U/L ALT (12-78) U/L Alkaline Phosphatase (45-117) U/L Troponin I (0-0.045) ng/ml Total Protein (6.4-8.2) gm/dl Albumin (3.4-5.0) gm/dl Globulin (2.5-4.0) gm/dl Albumin/Globulin Ratio (0.9-2) Urine Color Urine Appearance (Clear) Urine pH (4.5-7.5) Ur Specific [place] (1.000-1.030) Urine Protein (Negative) Urine Glucose (UA) (Negative) Urine Ketones (Negative) Urine Blood (Negative) Urine Nitrite (Negative) Urine Bilirubin (Negative) Urine Urobilinogen (Negative) Ur Leukocyte Esterase (Negative) Urine WBC (Auto) (0-5) /hpf Urine RBC (Auto) (0-4) /hpf U Hyaline Cast (Auto) (0-5) /lpf U Epithel Cells (Auto) (0-5) /lpf Urine Bacteria (Auto) (Negative) Ur Renal Epithelial Cell Urine Yeast Nasal Screen MRSA (PCR) Negative (Negative) Diagnostic Findings Chest X-Ray 01/29/21 11:59 XR chest 1V portable HISTORY: SEPSIS COMPARISON: Chest 10/19/2019. FINDINGS: The lungs are clear. The heart is normal in size. No pleural effusions. No pneumothorax. Calcified granuloma within the right lung base remains unchanged. The lungs are mildly hyperexpanded. Prior cholecystectomy. IMPRESSION: No acute process. ACT 112: Negative or not required by law. Electronically signed by: Jam Lewis M.D. 01/29/2021 12:41 PM Abdomen/Pelvis CT 01/29/21 12:52 CT OF THE ABDOMEN AND PELVIS WITHOUT CONTRAST CLINICAL HISTORY: Abdominal pain, nausea and vomiting. COMPARISON STUDY: CT of the abdomen and pelvis March 10, 2020. TECHNIQUE: Axial images of the abdomen and pelvis were obtained without IV contrast. Images were reviewed in the axial, sagittal, and coronal planes. Automated exposure control was utilized for the study. A dose lowering technique was utilized adhering to the principles of ALARA. FINDINGS: Visualized portions of the lung bases demonstrate mild multifocal groundglass opacities. There is a calcified granuloma within the right lower lobe. Evaluation of the abdomen and pelvis is suboptimal on this unenhanced exam. A small amount of pneumoperitoneum is noted. In addition, there is extensive pneumatosis of numerous small bowel loops. The proximal to mid small bowel is moderately dilated and fluid-filled. A well-defined transition point is not identified however the findings favor an underlying small bowel obstruction. There are postoperative findings from a right hemicolectomy. The stomach is mildly distended and fluid-filled. There are calcified cannula was within the spleen. Mild dilatation of the common bile duct is likely related to cholecystectomy. Small bilateral renal calculi measure up to 5 mm. There are no ureteral calculi. There is a cyst within the midpole of the left kidney. A hyperdense 1.3 cm lesion within the upper pole of the left kidney favors a hyperdense cyst when correlating with prior contrast enhanced CT. There is extensive colonic diverticulosis without evidence for acute diverticulitis. There is no free fluid. There is no abscess. Nodularity of the left adrenal gland is unchanged. No acute fracture or suspicious lesion is identified within visualized skeletal structures. IMPRESSION: 1. Excessive pneumatosis of multiple small bowel loops with small amount of associated pneumoperitoneum. Although pneumatosis is nonspecific, the findings are highly suggestive of small bowel ischemia with bowel perforation. Surgical consultation is recommended. Moderately dilated fluid-filled proximal to mid small bowel favors an underlying small bowel obstruction although a discrete transition point is not identified. Findings discussed with Dr. Cochran at time of dictation. 2. Mild groundglass opacities within the lower lungs which favor an infectious process or aspiration. 3. Bilateral nephrolithiasis. No ureteral calculi. No hydronephrosis. ACT 112: Negative or not required by law. Electronically signed by: Edson Barreto M.D. 01/29/2021 1:24 PM PG Care Time/CCT Total # of Minutes Spent Total Time Spent with Patient: Total time spent is greater than 50% in coordination of care (as documented) at patient's floor/unit and/or counseling patient: Coding Level of Care Code 72406 Inpt Consult Level 3 Diagnoses TAB (acute kidney injury) N17.9 Sepsis A41.9 Sepsis acute organ dysfunction status: unspecified Sepsis type: sepsis due to unspecified organism Bowel perforation K63.1 Chronic obstructive asthma J44.9 Mixed connective tissue disease M35.1 Hypovolemic shock R57.1 DVT prophylaxis Z29.9 Elevated troponin R77.8 (1) Sepsis Sepsis acute organ dysfunction status: unspecified Sepsis type: sepsis due to unspecified organism Qualified Code(s): A41.9 - Sepsis, unspecified organism
[2021-01-30 15:32] LABS: Appearance Urine Clear (Clear); Bacteria Urine Automated Negative (Negative); Bilirubin Urine Negative (Negative); Blood Urine Negative (Negative); Color Urine Yellow; Epithelial Cell Urine Auto >30 /lpf (0-5); Glucose Urine UA Negative (Negative); Ketones Urine Trace (Negative); Leukocyte Esterase Urine Negative (Negative); Nitrite Urine Negative (Negative); Protein Urine 1+ (Negative); RBC Urine Automated 0-4 /hpf (0-4); Specific Gravity Urine 1.028 (1.000-1.030); Urobilinogen Urine Negative (Negative); pH Urine 5.5 (4.5-7.5)
[2021-01-30] MEDS: FAMOTIDINE 20 MG in SYRINGE 3 ML IV SCH (16:47)
--- NOTE | 2021-01-30 16:56 | Billing Data ---
Date of Service January 29, 2021 Coding Level of Care Code Critical Care 1st - mins
--- NOTE | 2021-01-30 17:35 | XRay Report ---
XR KUB/Abdomen 1 view INDICATION: MN ^Y ^NG placement. TECHNIQUE: 1 view of the abdomen was obtained. Comparison: None available at the time of this dictation. FINDINGS: Enteric tube side-port is within the body of the stomach. The osseous structures are grossly unremark able. Prominent gaseous distention of the large bowel is noted. A moderate amount of stool is noted w ithin the large bowel. IMPRESSION: 1. Satisfactory position of enteric tube. 2. Prominent gaseous distention of the large bowel is partially noted. ACT 112: Negative or not required by law. Electronically signed by: Damion Prince M.D. 01/30/2021 5:34 PM
[2021-01-30] MEDS ORDERED: DEXTROSE 50% 50 ML SYRINGE IV ONE (18:30)
[2021-01-30] MEDS ORDERED: HYDROCORTISONE SOD 50 MG in SYRINGE 0 ML IV SCH (21:00)
[2021-01-30] MEDS: D5W NORMOSOL-R 1,000 ML IV SCH (21:02)
[2021-01-30] MEDS: HYDROCORTISONE SOD 40 MG in SYRINGE 0 ML IV SCH (21:09)
[2021-01-30 21:10] LABS: Troponin I 0.267 ng/ml (0-0.045)
[2021-01-31] MEDS: HYDROmorphone INJ 0.5 MG/0.5 ML SYR IV PRN ×4 (00:12→15:39)
[2021-01-31] MEDS: HYDROCORTISONE SOD 40 MG in SYRINGE 0 ML IV SCH (04:20)
[2021-01-31 05:00] LABS: Hematocrit (blood only) 28.6 % (37-47); Hemoglobin 9.2 g/dL (12.0-16.0); Immature Granulocytes # (auto) 0.01 K/uL (0.00-0.02); Immature Granulocytes % (auto) 0.1 %; Lymphocytes # (auto) 0.91 K/uL (1.2-3.4); Lymphocytes % (auto) 10.7 %; Mean Corpuscular Hemoglobin 30.1 pg (25-34); Mean Corpuscular Hgb Conc 32.2 g/dL (32-36); Mean Corpuscular Volume 93.5 fL (80-100); Mean Platelet Volume 11.9 fL (7.4-10.4); Monocytes # (auto) 0.43 K/uL (0.11-0.59); Neutrophils # (auto) 7.19 K/uL (1.4-6.5); Neutrophils % (auto) 84.2 %; Platelet Count 130 K/uL (130-400); RDW Coefficient of Variation 14.4 % (11.5-14.5); RDW Standard Deviation 49.2 fL (36.4-46.3); Red Blood Count 3.06 M/uL (4.2-5.4); White Blood Count 8.54 K/uL (4.8-10.8)
[2021-01-31 05:42] LABS: Albumin Level 1.8 gm/dl (3.4-5.0); Calcium 7.3 mg/dl (8.5-10.1); Creatinine Clr Calc Pharmacy 22.8 ml/min; Est GFR (African American) 33.6 ml/min; Magnesium 2.7 mg/dl (1.8-2.4); Potassium 3.6 mmol/L (3.5-5.1)
[2021-01-31 05:49] LABS: Albumin Globulin Ratio 0.5 (0.9-2); Bilirubin,Total 0.2 mg/dl (0.2-1); Globulin 3.3 gm/dl (2.5-4.0); Total Protein 5.1 gm/dl (6.4-8.2)
[2021-01-31] MEDS: D5W NORMOSOL-R 1,000 ML IV SCH (06:26)
--- NOTE | 2021-01-31 08:05 | Surgery Progress Note ---
Date of Service January 31, 2021 Assessment & Plan (1) SBO (small bowel obstruction): Plan: She is stable No acute changes Her renal function is much improved with better urine output and decreased creatinine Expected NG output-we will leave NG for now I think she will need PPN/TPN so I have obtained PICC consent We will try to have PICC line placed today in order TPN if possible Continue PCU/monitored bed Admission and Anticipated Discharge Date Admission Date: January 29, 2021 Results & Data ([facility]) Vital Signs (Past 12 Hours) Vital Signs Temp Pulse Pulse Resp BP Pulse Ox 01/31/21 03:45 36.7 C 79 18 93/55 L 97 01/30/21 23:59 77 01/30/21 23:58 36.6 C 72 12 104/67 93 PG Care Time/CCT Total # of Minutes Spent Total Time Spent with Patient: Total time spent is greater than 50% in coordination of care (as documented) at patient's floor/unit and/or counseling patient: Coding Level of Care Code None Diagnoses SBO (small bowel obstruction) K56.609
[2021-01-31] MEDS ORDERED: DEXTROSE 10% 1,000 ML IV PRN (08:06)
[2021-01-31] MEDS ORDERED: TPN/PPN CONSULT PHARMACY PRN (08:10)
--- NOTE | 2021-01-31 08:19 | Hospitalist Progress Note ---
Date of Service January 31, 2021 Assessment & Plan (1) Sepsis: Plan: Admitted 01/29 with hypotensive with BP 78/54 with Lactic 3.5, BUN/Cr 59/3.6 (baseline Cr ~1) WBC 14.4k concerns for bowel perforation on imaging following n/v with reported 4 garbage cans full of vomit. CTAP with excessive pneumatosis of multiple small bowel loops with small amount of associated pneumoperitoneum. Although pneumatosis is nonspecific, the findings are highly suggestive of small bowel ischemia with bowel perforation. Surgical consultation is recommended. Moderately dilated fluid-filled proximal to mid small bowel favors an underlying small bowel obstruction although a discrete transition point is not identified. Findings discussed with Dr. Cochran at time of dictation. POD2 s/p Exploratory laparotomy with lysis of adhesions with Dr. Cabrera and ICU post-operative for management given complex history/possible need for continued monitoring (extubated post-op) --> no evidence of ischemic/infectious disease during thankfully but did have some banding that could have been contributing (lysis of adhesions undertaken) Sepsis suspected 2nd to Hypovolemic Shock PT/OT/pain management per primary DVT prevention with Heparin SQ On Cefoxitin trish-operative period, since completed Troponin elevated --> trending down. Suspect 2nd to demand/hypotensive shock Decreasing hydrocortisone to 20mg IV Q8H and will attempt to change back to usual prednisone for tomorrow as BPs improved and stable Nephrology on consult given ATN/elevated Cr -- recs to encourage positive fluid balance IVF changed to [id number] given hypoglycemia yesterday which has been resolved and rate backed down now that she has a positive fluid balance Cr improving --> 1.76 from max 3.65 on 01/30 PICC line ordered and currently being placed Phenergan added for nausea -- has not needed to utilze this yet for anticipation to start TPN Encouraging incentive spirometer --> better effort today but still decreased. Of note, mild groundglass opacities within the lower lungs which favor an infectious process or aspiration and could be from all the vomiting --> Currently 94% on 2L. Wean as tolerate Continue famotidine IVP for GI prophylaxis (had been taking TUMS frequently at home) CM following as patient with difficulty with TPN at d/c last time and self teaching/ability to do on own. May need rehab (although she doesn't want that) at discharge if unable to make improvements. She is warry about getting up out of bed but we did encourage OOB to chair to help with mobility Continued close monitoring of electrolytes/replacement as needed (2) Hypovolemic shock: Plan: 2nd to dehydration/vomiting/above BPs improving -- currently 123/73 Treatment as above (3) TAB (acute kidney injury): Plan: baseline cr close to 1 Currently Cr >3.5 IVF changed to Normosol, increased afternoon for low UO and decreased in evening and added D5 given hypoglycemia on 01/30 Cr improved to 1.76 Nephrology also on consult BMP (4) Bowel perforation: Plan: concerns for as above given imaging. no perforation during OR per report (5) Chronic obstructive asthma: Plan: continue usual inhaler incentive spirometer no sob/wheezing on exam supplemental O2 as above and encouraging incentive spirometery (6) Mixed connective tissue disease: Plan: plaquenil on hold Follows with Dr. [facility] Stress dose steroids with hydrocortisone 50mg IV BID for now then transition back to usual 10mg prednisone daily in next 24-48 hours --> decreased to 20mg IV Q8H today and BPs improved and will plan to place back on usual prednisone for tomorrow unless becomes hypotensive again (7) Elevated troponin: Plan: suspect 2nd to demand/hypovolemic shock as above No CP reported EKG stable from prior Dec 2019, PACs no longer present Trending down --.> 2nd to demand from hypovolemic shock No CP/SOB reported Continued monitoring on telemetry (8) DVT prophylaxis: Plan: Heparin SQ Plan: Downgraded to PCU on 01/30 Hospitalist service will continue to monitor/follow along Admission and Anticipated Discharge Date Admission Date: January 29, 2021 Supervising Physician Co-Signing Physician Notes Attending Attestation- Chart reviewed, care plan d/w MARLI Islas. I agree w/ the huston components of her documentation. A/P: 1. shock - resolved; 2nd to #2. 2. SBO with concern for perforation - POD#2 s/p ex lap by Dr Cabrera; ADOLFO performed, bowel was run and no perf seen. 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 3. hypoglycemia - resolved. 4. ATN - supportive care, IVF, serial labs. IMPROVED. Nephrology consult and recs appreciated. 5. MCTD - cont stress-dose steroids; cont holding plaquenil. Agree with current taper/wean of steroids. BPs remain adequate. 6. COPD - stable. 7. FEN - PICC + TPN is being planned by primary attending/gen surg. Defer management to them. Colt Holt MD Subjective Eval this morning. Pain to abd, trish-incisional, but about the same, maybe slightly better. No passing gas. NGT remains in place. Using incentive spirometer more today thankfully with better response and highly encouraged. No further episodes of hypoglycemia since yesterday afternoon with placement on the IV hydrocortisone and this will be continued today with plans to switch back to prednisone tomorrow if BP remains stable. Urine output improved and Cr better. Admits she saw Nephrology this morning and they were happy. Denies fever, chest pain, shortness of breath (but does have shallow breathing/not taking deep breaths, on 2L NC O2 sat 93-96% currently and attempting to wean), no nausea at this time. Questions/concerns addressed at this time. Currently getting PICC line for anticipation of TPN and patient very familiar with this given prior history. Review of Systems Review of Systems: All systems reviewed & are unremarkable except as noted in HPI & below Physical Exam Constitutional: well developed, + thin, + frail appearing and cooperative; no acute distress Eyes: no scleral abnormality and no corneal abnormality ENMT: Mouth: + dry oral mucous membranes (improving); no oral mucosal abnormality NGT with bilious drainage Neck: normal visual inspection and trachea midline Respiratory: + cough (non-productive); + abnormal respiratory effort (shallow breaths at times), no respiratory distress and no labored breathing Auscultation: lungs clear to auscultation bilaterally (slight diminshed in bases/associated crackles); no rhonchi and no wheezes Cardiovascular: Rate/Rhythm: regular rate Heart Sounds: normal S1 and normal S2 Extremities: no edema Gastrointestinal (Abdomen): hypoactive bowel sounds, +distended, dressing c/d/i, tender to palpation trish-incisional, no guarding or rigidity Musculoskeletal: Extremities: no cyanosis and no clubbing Skin: normal turgor; no lesions Neurologic: Motor/Sensory: no tremor and no asterixis Psychiatric: Orientation: alert and oriented x 3 Genitourinary: johns draining yellow urine Results & Data Results & Data ([facility]) Vital Signs (Past 12 Hours) Vital Signs Temp Pulse Pulse Resp BP Pulse Ox 01/31/21 03:45 36.7 C 79 18 93/55 L 97 01/30/21 23:59 77 01/30/21 23:58 36.6 C 72 12 104/67 93 Laboratory Results 01/31/21 01/31/21 01/31/21 Range/Units 04:46 04:46 00:07 WBC 8.54 (4.8-10.8) K/uL RBC 3.06 L (4.2-5.4) M/uL Hgb 9.2 L (12.0-16.0) g/dL Hct 28.6 L (37-47) % MCV 93.5 (80-100) fL MCH 30.1 (25-34) pg MCHC 32.2 (32-36) g/dL RDW Std Deviation 49.2 H (36.4-46.3) fL RDW Coeff of Bo 14.4 (11.5-14.5) % Plt Count 130 (130-400) K/uL MPV 11.9 H (7.4-10.4) fL Immature Gran % (Auto) 0.1 % Neut % (Auto) 84.2 % Lymph % (Auto) 10.7 % [place] % (Auto) 5.0 % Eos % (Auto) 0.0 % Baso % (Auto) 0.0 % Neut # (Auto) 7.19 H (1.4-6.5) K/uL Lymph # (Auto) 0.91 L (1.2-3.4) K/uL [place] # (Auto) 0.43 (0.11-0.59) K/uL Eos # (Auto) 0.00 (0-0.5) K/uL Baso # (Auto) 0.00 (0-0.2) K/uL Immature Gran # (Auto) 0.01 (0.00-0.02) K/uL Sodium 142 (136-145) mmol/L Potassium 3.6 (3.5-5.1) mmol/L Chloride 102 (98-107) mmol/L Carbon Dioxide 36 H (21-32) mmol/L Anion Gap 4.0 (3-11) BUN 51 H (7-18) mg/dl Creatinine 1.76 H D (0.6-1.2) mg/dl Est Cr Clr Drug Dosing 22.8 ml/min Est GFR ( Amer) 33.6 ml/min Est GFR (Non-Af Amer) 29.0 ml/min BUN/Creatinine Ratio 29.0 H (10-20) Glucose 96 (70-99) mg/dl POC Glucose 89 (70-99) mg/dl Calcium 7.3 L (8.5-10.1) mg/dl Phosphorus 3.0 D (2.5-4.9) mg/dl Magnesium 2.7 H (1.8-2.4) mg/dl Total Bilirubin 0.2 (0.2-1) mg/dl AST 26 (15-37) U/L ALT 22 (12-78) U/L Alkaline Phosphatase 44 L (45-117) U/L Troponin I (0-0.045) ng/ml Total Protein 5.1 L (6.4-8.2) gm/dl Albumin 1.8 L (3.4-5.0) gm/dl Globulin 3.3 (2.5-4.0) gm/dl Albumin/Globulin Ratio 0.5 L (0.9-2) Urine Color Urine Appearance (Clear) Urine pH (4.5-7.5) Ur Specific Bland (1.000-1.030) Urine Protein (Negative) Urine Glucose (UA) (Negative) Urine Ketones (Negative) Urine Blood (Negative) Urine Nitrite (Negative) Urine Bilirubin (Negative) Urine Urobilinogen (Negative) Ur Leukocyte Esterase (Negative) Urine WBC (Auto) (0-5) /hpf Urine RBC (Auto) (0-4) /hpf U Hyaline Cast (Auto) (0-5) /lpf U Epithel Cells (Auto) (0-5) /lpf Urine Bacteria (Auto) (Negative) Ur Renal Epithelial Cell Urine Yeast 01/30/21 01/30/21 01/30/21 Range/Units 19:12 19:12 18:53 WBC (4.8-10.8) K/uL RBC (4.2-5.4) M/uL Hgb (12.0-16.0) g/dL Hct (37-47) % MCV (80-100) fL MCH (25-34) pg MCHC (32-36) g/dL RDW Std Deviation (36.4-46.3) fL RDW Coeff of Bo (11.5-14.5) % Plt Count (130-400) K/uL MPV (7.4-10.4) fL Immature Gran % (Auto) % Neut % (Auto) % Lymph % (Auto) % [place] % (Auto) % Eos % (Auto) % Baso % (Auto) % Neut # (Auto) (1.4-6.5) K/uL Lymph # (Auto) (1.2-3.4) K/uL [place] # (Auto) (0.11-0.59) K/uL Eos # (Auto) (0-0.5) K/uL Baso # (Auto) (0-0.2) K/uL Immature Gran # (Auto) (0.00-0.02) K/uL Sodium (136-145) mmol/L Potassium (3.5-5.1) mmol/L Chloride (98-107) mmol/L Carbon Dioxide (21-32) mmol/L Anion Gap (3-11) BUN (7-18) mg/dl Creatinine (0.6-1.2) mg/dl Est Cr Clr Drug Dosing ml/min Est GFR ( Amer) ml/min Est GFR (Non-Af Amer) ml/min BUN/Creatinine Ratio (10-20) Glucose 110 H (70-99) mg/dl POC Glucose 95 (70-99) mg/dl Calcium (8.5-10.1) mg/dl Phosphorus (2.5-4.9) mg/dl Magnesium (1.8-2.4) mg/dl Total Bilirubin (0.2-1) mg/dl AST (15-37) U/L ALT (12-78) U/L Alkaline Phosphatase (45-117) U/L Troponin I Cancelled 0.267 H* (0-0.045) ng/ml Total Protein (6.4-8.2) gm/dl Albumin (3.4-5.0) gm/dl Globulin (2.5-4.0) gm/dl Albumin/Globulin Ratio (0.9-2) Urine Color Urine Appearance (Clear) Urine pH (4.5-7.5) Ur Specific Bland (1.000-1.030) Urine Protein (Negative) Urine Glucose (UA) (Negative) Urine Ketones (Negative) Urine Blood (Negative) Urine Nitrite (Negative) Urine Bilirubin (Negative) Urine Urobilinogen (Negative) Ur Leukocyte Esterase (Negative) Urine WBC (Auto) (0-5) /hpf Urine RBC (Auto) (0-4) /hpf U Hyaline Cast (Auto) (0-5) /lpf U Epithel Cells (Auto) (0-5) /lpf Urine Bacteria (Auto) (Negative) Ur Renal Epithelial Cell Urine Yeast 01/30/21 01/30/21 01/30/21 Range/Units 18:52 18:51 18:26 WBC (4.8-10.8) K/uL RBC (4.2-5.4) M/uL Hgb (12.0-16.0) g/dL Hct (37-47) % MCV (80-100) fL MCH (25-34) pg MCHC (32-36) g/dL RDW Std Deviation (36.4-46.3) fL RDW Coeff of Bo (11.5-14.5) % Plt Count (130-400) K/uL MPV (7.4-10.4) fL Immature Gran % (Auto) % Neut % (Auto) % Lymph % (Auto) % [place] % (Auto) % Eos % (Auto) % Baso % (Auto) % Neut # (Auto) (1.4-6.5) K/uL Lymph # (Auto) (1.2-3.4) K/uL [place] # (Auto) (0.11-0.59) K/uL Eos # (Auto) (0-0.5) K/uL Baso # (Auto) (0-0.2) K/uL Immature Gran # (Auto) (0.00-0.02) K/uL Sodium (136-145) mmol/L Potassium (3.5-5.1) mmol/L Chloride (98-107) mmol/L Carbon Dioxide (21-32) mmol/L Anion Gap (3-11) BUN (7-18) mg/dl Creatinine (0.6-1.2) mg/dl Est Cr Clr Drug Dosing ml/min Est GFR ( Amer) ml/min Est GFR (Non-Af Amer) ml/min BUN/Creatinine Ratio (10-20) Glucose (70-99) mg/dl POC Glucose 60 L* 47 L* 63 L* (70-99) mg/dl Calcium (8.5-10.1) mg/dl Phosphorus (2.5-4.9) mg/dl Magnesium (1.8-2.4) mg/dl Total Bilirubin (0.2-1) mg/dl AST (15-37) U/L ALT (12-78) U/L Alkaline Phosphatase (45-117) U/L Troponin I (0-0.045) ng/ml Total Protein (6.4-8.2) gm/dl Albumin (3.4-5.0) gm/dl Globulin (2.5-4.0) gm/dl Albumin/Globulin Ratio (0.9-2) Urine Color Urine Appearance (Clear) Urine pH (4.5-7.5) Ur Specific Bland (1.000-1.030) Urine Protein (Negative) Urine Glucose (UA) (Negative) Urine Ketones (Negative) Urine Blood (Negative) Urine Nitrite (Negative) Urine Bilirubin (Negative) Urine Urobilinogen (Negative) Ur Leukocyte Esterase (Negative) Urine WBC (Auto) (0-5) /hpf Urine RBC (Auto) (0-4) /hpf U Hyaline Cast (Auto) (0-5) /lpf U Epithel Cells (Auto) (0-5) /lpf Urine Bacteria (Auto) (Negative) Ur Renal Epithelial Cell Urine Yeast 01/30/21 01/30/21 01/30/21 Range/Units 18:25 15:09 14:10 WBC (4.8-10.8) K/uL RBC (4.2-5.4) M/uL Hgb (12.0-16.0) g/dL Hct (37-47) % MCV (80-100) fL MCH (25-34) pg MCHC (32-36) g/dL RDW Std Deviation (36.4-46.3) fL RDW Coeff of Bo (11.5-14.5) % Plt Count (130-400) K/uL MPV (7.4-10.4) fL Immature Gran % (Auto) % Neut % (Auto) % Lymph % (Auto) % [place] % (Auto) % Eos % (Auto) % Baso % (Auto) % Neut # (Auto) (1.4-6.5) K/uL Lymph # (Auto) (1.2-3.4) K/uL [place] # (Auto) (0.11-0.59) K/uL Eos # (Auto) (0-0.5) K/uL Baso # (Auto) (0-0.2) K/uL Immature Gran # (Auto) (0.00-0.02) K/uL Sodium (136-145) mmol/L Potassium (3.5-5.1) mmol/L Chloride (98-107) mmol/L Carbon Dioxide (21-32) mmol/L Anion Gap (3-11) BUN (7-18) mg/dl Creatinine (0.6-1.2) mg/dl Est Cr Clr Drug Dosing ml/min Est GFR ( Amer) ml/min Est GFR (Non-Af Amer) ml/min BUN/Creatinine Ratio (10-20) Glucose (70-99) mg/dl POC Glucose 65 L* (70-99) mg/dl Calcium (8.5-10.1) mg/dl Phosphorus (2.5-4.9) mg/dl Magnesium (1.8-2.4) mg/dl Total Bilirubin (0.2-1) mg/dl AST (15-37) U/L ALT (12-78) U/L Alkaline Phosphatase (45-117) U/L Troponin I 0.247 H* (0-0.045) ng/ml Total Protein (6.4-8.2) gm/dl Albumin (3.4-5.0) gm/dl Globulin (2.5-4.0) gm/dl Albumin/Globulin Ratio (0.9-2) Urine Color Yellow Urine Appearance Clear (Clear) Urine pH 5.5 (4.5-7.5) Ur Specific Bland 1.028 (1.000-1.030) Urine Protein 1+ H (Negative) Urine Glucose (UA) Negative (Negative) Urine Ketones Trace H (Negative) Urine Blood Negative (Negative) Urine Nitrite Negative (Negative) Urine Bilirubin Negative (Negative) Urine Urobilinogen Negative (Negative) Ur Leukocyte Esterase Negative (Negative) Urine WBC (Auto) 5-10 H (0-5) /hpf Urine RBC (Auto) 0-4 (0-4) /hpf U Hyaline Cast (Auto) 1-5 (0-5) /lpf U Epithel Cells (Auto) >30 H (0-5) /lpf Urine Bacteria (Auto) Negative (Negative) Ur Renal Epithelial Cell Not Reportable Urine Yeast Not Reportable 01/30/21 01/30/21 Range/Units 11:28 06:35 WBC (4.8-10.8) K/uL RBC (4.2-5.4) M/uL Hgb (12.0-16.0) g/dL Hct (37-47) % MCV (80-100) fL MCH (25-34) pg MCHC (32-36) g/dL RDW Std Deviation (36.4-46.3) fL RDW Coeff of Bo (11.5-14.5) % Plt Count (130-400) K/uL MPV (7.4-10.4) fL Immature Gran % (Auto) % Neut % (Auto) % Lymph % (Auto) % [place] % (Auto) % Eos % (Auto) % Baso % (Auto) % Neut # (Auto) (1.4-6.5) K/uL Lymph # (Auto) (1.2-3.4) K/uL [place] # (Auto) (0.11-0.59) K/uL Eos # (Auto) (0-0.5) K/uL Baso # (Auto) (0-0.2) K/uL Immature Gran # (Auto) (0.00-0.02) K/uL Sodium (136-145) mmol/L Potassium (3.5-5.1) mmol/L Chloride (98-107) mmol/L Carbon Dioxide (21-32) mmol/L Anion Gap (3-11) BUN (7-18) mg/dl Creatinine (0.6-1.2) mg/dl Est Cr Clr Drug Dosing ml/min Est GFR ( Amer) ml/min Est GFR (Non-Af Amer) ml/min BUN/Creatinine Ratio (10-20) Glucose (70-99) mg/dl POC Glucose 73 (70-99) mg/dl Calcium (8.5-10.1) mg/dl Phosphorus (2.5-4.9) mg/dl Magnesium (1.8-2.4) mg/dl Total Bilirubin (0.2-1) mg/dl AST (15-37) U/L ALT (12-78) U/L Alkaline Phosphatase (45-117) U/L Troponin I 0.270 H* (0-0.045) ng/ml Total Protein (6.4-8.2) gm/dl Albumin (3.4-5.0) gm/dl Globulin (2.5-4.0) gm/dl Albumin/Globulin Ratio (0.9-2) Urine Color Urine Appearance (Clear) Urine pH (4.5-7.5) Ur Specific Bland (1.000-1.030) Urine Protein (Negative) Urine Glucose (UA) (Negative) Urine Ketones (Negative) Urine Blood (Negative) Urine Nitrite (Negative) Urine Bilirubin (Negative) Urine Urobilinogen (Negative) Ur Leukocyte Esterase (Negative) Urine WBC (Auto) (0-5) /hpf Urine RBC (Auto) (0-4) /hpf U Hyaline Cast (Auto) (0-5) /lpf U Epithel Cells (Auto) (0-5) /lpf Urine Bacteria (Auto) (Negative) Ur Renal Epithelial Cell Urine Yeast PG Care Time/CCT Total # of Minutes Spent Total Time Spent with Patient: Total time spent is greater than 50% in coordination of care (as documented) at patient's floor/unit and/or counseling patient: Coding Level of Care Code 38648 Subseq Hosp Care Lvl 3 Diagnoses Sepsis A41.9 Sepsis acute organ dysfunction status: unspecified Sepsis type: sepsis due to unspecified organism Hypovolemic shock R57.1 TAB (acute kidney injury) N17.9 Bowel perforation K63.1 Chronic obstructive asthma J44.9 Mixed connective tissue disease M35.1 DVT prophylaxis Z29.9 Elevated troponin R77.8 (1) Sepsis Sepsis acute organ dysfunction status: unspecified Sepsis type: sepsis due to unspecified organism Qualified Code(s): A41.9 - Sepsis, unspecified organism
[2021-01-31] MEDS ORDERED: predniSONE 10 MG TABLET PO SCH (09:00)
[2021-01-31] MEDS: HEPARIN SOD 5,000 UNIT/0.5 ML VIAL SQ SCH ×2 (09:09→20:27)
[2021-01-31] MEDS: FAMOTIDINE 20 MG in SYRINGE 3 ML IV SCH (09:40)
--- NOTE | 2021-01-31 09:42 | Nephrology Progress Note ---
Date of Service January 31, 2021 Assessment & Plan (1) TAB (acute kidney injury): Plan: Non-oliguric. CT did not demonstrate obstruction. Electrolytes acceptable. Volume status improving. No indication for LOAD TEST MECHANIC at this time. Clinical presentation consistent with prerenal physiology and superimposed ATN. Follow up urine studies negative for blood. Culture negative. Medications appropriately dosed for kidney function. BP improved. Continue normosol to encourage a positive fluid balance. Document strict I/O's. Repeat metabolic profile tomorrow AM. Admission and Anticipated Discharge Date Admission Date: January 29, 2021 Subjective No acute events overnight. Pain controlled. Feeling slightly foggy and sleepy which she attributes to pain medications. Pain well controlled. No fevers or chills. Review of Systems Review of Systems: All systems reviewed & are unremarkable except as noted in HPI & below Physical Exam Constitutional: well developed; no acute distress Eyes: no scleral abnormality and no corneal abnormality ENMT: Mouth: + dry oral mucous membranes; no oral mucosal abnormality Neck: normal visual inspection and trachea midline Respiratory: normal respiratory effort Auscultation: lungs clear to auscultation bilaterally Cardiovascular: Rate/Rhythm: regular rate Heart Sounds: normal S1 and normal S2 Extremities: no edema Musculoskeletal: Extremities: no cyanosis and no clubbing Skin: normal turgor; no lesions Neurologic: Motor/Sensory: no tremor and no asterixis Psychiatric: Orientation: alert and oriented x 3 Results & Data ([facility]) Vital Signs (Past 12 Hours) Vital Signs Temp Pulse Pulse Resp BP BP Pulse Ox 01/31/21 07:33 73 16 123/73 94 01/31/21 07:30 36.6 C 01/31/21 03:45 36.7 C 79 18 93/55 L 97 01/30/21 23:59 77 01/30/21 23:58 36.6 C 72 12 104/67 93 Laboratory Results Laboratory Results - last 24 hr 01/30/21 01/30/21 01/30/21 06:35 11:28 14:10 WBC RBC Hgb Hct MCV MCH MCHC RDW Std Deviation RDW Coeff of Bo Plt Count MPV Immature Gran % (Auto) Neut % (Auto) Lymph % (Auto) Sanders % (Auto) Eos % (Auto) Baso % (Auto) Neut # (Auto) Lymph # (Auto) Sanders # (Auto) Eos # (Auto) Baso # (Auto) Immature Gran # (Auto) Sodium Potassium Chloride Carbon Dioxide Anion Gap BUN Creatinine Est Cr Clr Drug Dosing Est GFR ( Amer) Est GFR (Non-Af Amer) BUN/Creatinine Ratio Glucose POC Glucose 73 Calcium Phosphorus Magnesium Total Bilirubin AST ALT Alkaline Phosphatase Troponin I 0.270 H* Total Protein Albumin Globulin Albumin/Globulin Ratio Urine Color Yellow Urine Appearance Clear Urine pH 5.5 Ur Specific [place] 1.028 Urine Protein 1+ H Urine Glucose (UA) Negative Urine Ketones Trace H Urine Blood Negative Urine Nitrite Negative Urine Bilirubin Negative Urine Urobilinogen Negative Ur Leukocyte Esterase Negative Urine WBC (Auto) 5-10 H Urine RBC (Auto) 0-4 U Hyaline Cast (Auto) 1-5 U Epithel Cells (Auto) >30 H Urine Bacteria (Auto) Negative Ur Renal Epithelial Cell Not Reportable Urine Yeast Not Reportable 01/30/21 01/30/21 01/30/21 15:09 18:25 18:26 WBC RBC Hgb Hct MCV MCH MCHC RDW Std Deviation RDW Coeff of Bo Plt Count MPV Immature Gran % (Auto) Neut % (Auto) Lymph % (Auto) Sanders % (Auto) Eos % (Auto) Baso % (Auto) Neut # (Auto) Lymph # (Auto) Sanders # (Auto) Eos # (Auto) Baso # (Auto) Immature Gran # (Auto) Sodium Potassium Chloride Carbon Dioxide Anion Gap BUN Creatinine Est Cr Clr Drug Dosing Est GFR ( Amer) Est GFR (Non-Af Amer) BUN/Creatinine Ratio Glucose POC Glucose 65 L* 63 L* Calcium Phosphorus Magnesium Total Bilirubin AST ALT Alkaline Phosphatase Troponin I 0.247 H* Total Protein Albumin Globulin Albumin/Globulin Ratio Urine Color Urine Appearance Urine pH Ur Specific [place] Urine Protein Urine Glucose (UA) Urine Ketones Urine Blood Urine Nitrite Urine Bilirubin Urine Urobilinogen Ur Leukocyte Esterase Urine WBC (Auto) Urine RBC (Auto) U Hyaline Cast (Auto) U Epithel Cells (Auto) Urine Bacteria (Auto) Ur Renal Epithelial Cell Urine Yeast 01/30/21 01/30/21 01/30/21 18:51 18:52 18:53 WBC RBC Hgb Hct MCV MCH MCHC RDW Std Deviation RDW Coeff of Bo Plt Count MPV Immature Gran % (Auto) Neut % (Auto) Lymph % (Auto) Sanders % (Auto) Eos % (Auto) Baso % (Auto) Neut # (Auto) Lymph # (Auto) Sanders # (Auto) Eos # (Auto) Baso # (Auto) Immature Gran # (Auto) Sodium Potassium Chloride Carbon Dioxide Anion Gap BUN Creatinine Est Cr Clr Drug Dosing Est GFR ( Amer) Est GFR (Non-Af Amer) BUN/Creatinine Ratio Glucose POC Glucose 47 L* 60 L* 95 Calcium Phosphorus Magnesium Total Bilirubin AST ALT Alkaline Phosphatase Troponin I Total Protein Albumin Globulin Albumin/Globulin Ratio Urine Color Urine Appearance Urine pH Ur Specific [place] Urine Protein Urine Glucose (UA) Urine Ketones Urine Blood Urine Nitrite Urine Bilirubin Urine Urobilinogen Ur Leukocyte Esterase Urine WBC (Auto) Urine RBC (Auto) U Hyaline Cast (Auto) U Epithel Cells (Auto) Urine Bacteria (Auto) Ur Renal Epithelial Cell Urine Yeast 01/30/21 01/30/21 01/31/21 19:12 19:12 00:07 WBC RBC Hgb Hct MCV MCH MCHC RDW Std Deviation RDW Coeff of Bo Plt Count MPV Immature Gran % (Auto) Neut % (Auto) Lymph % (Auto) Sanders % (Auto) Eos % (Auto) Baso % (Auto) Neut # (Auto) Lymph # (Auto) Sanders # (Auto) Eos # (Auto) Baso # (Auto) Immature Gran # (Auto) Sodium Potassium Chloride Carbon Dioxide Anion Gap BUN Creatinine Est Cr Clr Drug Dosing Est GFR ( Amer) Est GFR (Non-Af Amer) BUN/Creatinine Ratio Glucose 110 H POC Glucose 89 Calcium Phosphorus Magnesium Total Bilirubin AST ALT Alkaline Phosphatase Troponin I 0.267 H* Cancelled Total Protein Albumin Globulin Albumin/Globulin Ratio Urine Color Urine Appearance Urine pH Ur Specific [place] Urine Protein Urine Glucose (UA) Urine Ketones Urine Blood Urine Nitrite Urine Bilirubin Urine Urobilinogen Ur Leukocyte Esterase Urine WBC (Auto) Urine RBC (Auto) U Hyaline Cast (Auto) U Epithel Cells (Auto) Urine Bacteria (Auto) Ur Renal Epithelial Cell Urine Yeast 01/31/21 01/31/21 01/31/21 04:46 04:46 04:46 WBC 8.54 RBC 3.06 L Hgb 9.2 L Hct 28.6 L MCV 93.5 MCH 30.1 MCHC 32.2 RDW Std Deviation 49.2 H RDW Coeff of Bo 14.4 Plt Count 130 MPV 11.9 H Immature Gran % (Auto) 0.1 Neut % (Auto) 84.2 Lymph % (Auto) 10.7 Sanders % (Auto) 5.0 Eos % (Auto) 0.0 Baso % (Auto) 0.0 Neut # (Auto) 7.19 H Lymph # (Auto) 0.91 L Sanders # (Auto) 0.43 Eos # (Auto) 0.00 Baso # (Auto) 0.00 Immature Gran # (Auto) 0.01 Sodium 142 Potassium 3.6 Chloride 102 Carbon Dioxide 36 H Anion Gap 4.0 BUN 51 H Creatinine 1.76 H D Est Cr Clr Drug Dosing 22.8 Est GFR ( Amer) 33.6 Est GFR (Non-Af Amer) 29.0 BUN/Creatinine Ratio 29.0 H Glucose 96 POC Glucose Calcium 7.3 L Phosphorus 3.0 D Magnesium 2.7 H Total Bilirubin 0.2 AST 26 ALT 22 Alkaline Phosphatase 44 L Troponin I 0.178 H* Total Protein 5.1 L Albumin 1.8 L Globulin 3.3 Albumin/Globulin Ratio 0.5 L Urine Color Urine Appearance Urine pH Ur Specific [place] Urine Protein Urine Glucose (UA) Urine Ketones Urine Blood Urine Nitrite Urine Bilirubin Urine Urobilinogen Ur Leukocyte Esterase Urine WBC (Auto) Urine RBC (Auto) U Hyaline Cast (Auto) U Epithel Cells (Auto) Urine Bacteria (Auto) Ur Renal Epithelial Cell Urine Yeast PG Care Time/CCT Total # of Minutes Spent Total Time Spent with Patient: Total time spent is greater than 50% in coordination of care (as documented) at patient's floor/unit and/or counseling patient: Coding Level of Care Code 21982 Subseq Hosp Care Lvl 3 Diagnoses TAB (acute kidney injury) N17.9
[2021-01-31] MEDS: HYDROCORTISONE SOD 20 MG in SYRINGE 0 ML IV SCH ×2 (11:37→20:27)
--- NOTE | 2021-01-31 11:40 | Pharmacy Report ---
Pharmacy PN Initial Consult - Date of Service January 31, 2021 - Scope Pharmacy has been consulted to manage parenteral nutrition orders and order appropriate labs. As part of the Nutrition Support Team guidelines, pharmacy will work in conjunction with dietary when determining the patients caloric needs. - Subjective The patient is a 70 year old F admitted on 01/29/21 17:41 for . Patient presented to ED on 01/29 for c/o NV, weakness. There was concern for SBO w/ lyly wel perf and she was taken to the OR emergently for exp lap. She is now s/p exp lap w/ ADOLFO. She is now POD # 2, of note no perforation noted intraop. Patient had been profoundly dehydrated and required resuscitation for hypovolemic shock. TAB present on admission, nephro consult feels likely secondary to prerenal causes. Pertinent PMH: * h/o prior right hemicolectomy (colonoscopy in 09/2019 led to perforation of proximal colon) * mixed connective tissue disease (chronic prednisone use) * asthma * kidney stones - Objective Height: 5 ft 1 in Weight: 48.4 kg Diet: NPO Intake & Output (Last 24Hrs): Intake & Output 01/29/21 01/30/21 01/31/21 02/01/21 06:59 06:59 06:59 06:59 Intake Total 4335.833 / 4335.833 3117.499 / 3117.499 Output Total 1340 / 1340 895 / 895 Balance 2995.833 / 2995.833 2222.499 / 2222.499 Weight 48.4 kg 48.4 kg Additional Fluid Losses/Gains:: NGT to be placed Laboratory Data (Last 24 Hrs):: 01/30/21 01/31/21 19:12 04:46 Sodium 142 Potassium 3.6 Chloride 102 Carbon Dioxide 36 H BUN 51 H Creatinine 1.76 H D Glucose 110 H 96 Calcium 7.3 L Phosphorus 3.0 D Magnesium 2.7 H Total Bilirubin 0.2 AST 26 ALT 22 Alkaline Phosphatase 44 L Albumin 1.8 L Recent Pertinent Medications:: Maint IVF: D5-Normosol @100cc/hr Hydrocortisone 20mg IV Q 8 hours Famotidine 20mg IV daily Nutrition Assessment:: Please refer to the Notes section of the EMR for the most recent veterinary microbiologist note. - Assessment POD # 2 s/p exp lap w/ ADOLFO. TAB appears to improving with volume resuscitation (UOP > 0.5ml/kg/hr, SCr 3.65 -->1.76, MAPs > 65) An order has been placed for PICC line. Will initiate parenteral nutrition with peripheral formulation given central access not guaranteed today (discussed w/ Dr Cabrera). Discussed fluid needs with Dr Partida. Will provide 100cc/hr in PPN and stop maint IVF once 1st bag is hung. Given large volume of PPN, will provide enough Na+ to make the equivalent of ~1/2 NS to prevent iatrogenic hyponatremia. E-lyte's reviewed. No repletion required today. Will begin PPN at ~15kcal/kg/day (760kcal). Will initially be cautious with K, Mg2 and Phos content due to TAB - although needs may increase quickly if in recovery phase of TAB. Lytes will be reevaluated tomorrow AM along w/ TG level. If PICC line placed before next bag is due, will compound next bag as central formulation. - Plan For day 1 of PN administration, the following will be ordered: Macronutrients Amino acids 50 grams/day Dextrose 100 grams/day Lipids 20 grams/day Micronutrients Combined electrolytes 0 mL - contains 35 mEq Na, 20 meq K, 4.5 mEq Ca, 5 mEq Mg, 35 mEq Cl, 29.5 mEq acetate per 20 mL Sodium phosphate 15 MMol Sodium chloride 75 mEq Sodium acetate 70 mEq Potassium phosphate 0 mMol Potassium chloride 40 mEq Potassium acetate 0 mEq Magnesium sulfate 0 mEq Calcium gluconate 4.65 mEq Multivitamins 10 mL Trace Elements 1 mL Additional additives: Thiamine 100mg, Folic Acid 1mg Total volume 2400 mL to be infused over 24 hrs will provide 760 kcal/day Final osmolarity [] mOsm/L (maximum for PPN is 900 mOsm/L) Labs to be ordered per PN order protocol Pharmacy will follow and adjust parenteral nutrition orders on a daily basis. Thank you.
[2021-01-31] MEDS ORDERED: PROMETHAZINE HCL 12.5 MG in SODIUM CHLORIDE 0.9% 50 ML IV PRN (12:08)
[2021-01-31] MEDS ORDERED: Nursing to Pharmacy Communication SCH (15:45)
[2021-01-31] MEDS ORDERED: [UNRECOGNIZED DRUG - REMARK] ONE (16:00)
[2021-01-31] MEDS ORDERED: Custom Peripheral Pn 2,400 ML in TPN BAG 0 ML IV SCH (16:00)
[2021-02-01 05:43] LABS: BUN Creatinine Ratio 32.7 (10-20); Calcium 7.4 mg/dl (8.5-10.1); Creatinine Clr Calc Pharmacy 31.5 ml/min; Est GFR (African American) 49.9 ml/min; Potassium 3.3 mmol/L (3.5-5.1)
--- NOTE | 2021-02-01 06:15 | Surgery Progress Note ---
Date of Service February 01, 2021 Assessment & Plan (1) SBO (small bowel obstruction): Plan: Patient's vital signs are stable She is currently on TPN via PICC line She is a little less alert this morning but did have a restless evening She had some confusion early on but then appeared to improve-her O2 sats were good Her NG output has been minimal with clamping and intermittent suction May consider removing the NG tube later this morning but only ice chips She does not appear to have any specific unilateral symptoms/signs We check a.m. labs, depending on urine output could consider some Lasix although I would leave this Decision to the nephrology team My partners and Dr. Chang will be covering over the weekend Admission and Anticipated Discharge Date Admission Date: January 29, 2021 Results & Data ([facility]) Vital Signs (Past 12 Hours) Vital Signs Temp Pulse Pulse Resp BP BP Pulse Ox 02/01/21 04:00 36.7 C 81 14 158/82 H 96 01/31/21 23:59 88 01/31/21 23:55 36.7 C 94 H 15 152/80 H 94 01/31/21 20:00 36.4 C L 75 19 154/79 H 96 PG Care Time/CCT Total # of Minutes Spent Total Time Spent with Patient: Total time spent is greater than 50% in intake coordinator rdination of care (as documented) at patient's floor/unit and/or counseling patient: Coding Level of Care Code None Diagnoses SBO (small bowel obstruction) K56.609
[2021-02-01] MEDS ORDERED: POTASSIUM PHOS 3 MMOL/1 ML INFUSION IV STA ×2 (07:59→08:40)
--- NOTE | 2021-02-01 08:06 | Hospitalist Progress Note ---
Date of Service February 01, 2021 Assessment & Plan (1) Sepsis: Plan: Admitted 01/29 with hypotensive with BP 78/54 with Lactic 3.5, BUN/Cr 59/3.6 (baseline Cr ~1) WBC 14.4k concerns for bowel perforation on imaging following n/v with reported 4 garbage cans full of vomit. Sepsis suspected 2nd to Hypovolemic Shock CTAP with excessive pneumatosis of multiple small bowel loops with small amount of associated pneumoperitoneum. Although pneumatosis is nonspecific, the findings are highly suggestive of small bowel ischemia with bowel perforation. Surgical consultation is recommended. Moderately dilated fluid-filled proximal to mid small bowel favors an underlying small bowel obstruction although a discrete transition point is not identified. Findings discussed with Dr. Cochran at time of dictation. POD3 s/p Exploratory laparotomy with lysis of adhesions with Dr. Cabrera and ICU post-operative for management given complex history/possible need for continued monitoring (extubated post-op) --> no evidence of ischemic/infectious disease during thankfully but did have some banding that could have been contributing (lysis of adhesions undertaken) PT/OT/pain management per primary DVT prevention with Heparin SQ On Cefoxitin trish-operative period, since completed Troponin elevated --> trending down. Suspect 2nd to demand/hypotensive shock Decreasing hydrocortisone to 20mg IV Q8H and will attempt to change back to usual prednisone for tomorrow as BPs improved and stable Nephrology on consult given ATN/elevated Cr -- recs to encourage positive fluid balance IVF changed to [id number] given hypoglycemia yesterday which has been resolved and rate backed down now that she has a positive fluid balance Cr improving --> 1.76 from max 3.65 on 01/30 PICC line ordered and currently being placed Phenergan added for nausea -- has not needed to utilze this yet for anticipation to start TPN Encouraging incentive spirometer --> better effort today but still decreased. Of note, mild groundglass opacities within the lower lungs which favor an infectious process or aspiration and could be from all the vomiting --> Currently 94% on 2L. Wean as tolerate Continue famotidine IVP for GI prophylaxis (had been taking TUMS frequently at home) CM following as patient with difficulty with TPN at d/c last time and self teaching/ability to do on own. May need rehab (although she doesn't want that) at discharge if unable to make improvements. She is warry about getting up out of bed but we did encourage OOB to chair to help with mobility 02/01 Episode of confusion/thinking she was part of a conspiracy last night. No focal deficits/unilateral symptoms. ?Steroid induced/disorientation from having a rough night --> RESOLVED THIS MORNING AND ALERT/ORIENTED x 4 Doing better, passing gas but no BM. Denies abd pain but is TTP Discussed with general surgery and plans to pull NGT today possible sips/chips Vitals stable Creatinine improving, currently 1.27 from max 3.6 IVF discontinued PPN started -- ok w/ nephrology to decrease volume but did discuss with general surgery and recs to continue PPN without discontinuing. Partners to cover this weekend Johns removed this morning (had some issues with retention BS >200 but output ~50cc last night but then output did improve). Will need to monitor for retention. Blood pressure much improved and d/c'd her IV stress dose steroids and placed back on usual 10mg prednisone daily via NG Continue famotidine IVP for GI proph Ordered K-phos for K 3.3 and phos 2.0. August 2.0 wnl Continued close monitoring of electrolytes/replacement as needed (2) Hypovolemic shock: Plan: 2nd to dehydration/vomiting/above BPs improving -- currently 149/76 Treatment as above, d/c IVF/IV steroids and placed back on usual dose (3) TAB (acute kidney injury): Plan: baseline cr close to 1 Currently Cr >3.5 IVF changed to Normosol, increased afternoon for low UO and decreased in evening and added D5 given hypoglycemia on 01/30 Cr improved to 1.76 Nephrology also on consult 02/01 Cr 1.27 Nephrology following as well BMP in AM (4) Bowel perforation: Plan: concerns for as above given imaging. no perforation during OR per report (5) Chronic obstructive asthma: Plan: continue usual inhaler incentive spirometer no sob/wheezing on exam supplemental O2 as above and encouraging incentive spirometery --> improved use but still diminshed in the bases No sob/cp reported and continued to encourage. Will hold off on lasix at this time and continue to monitor Wean O2 as tolerated (6) Mixed connective tissue disease: Plan: plaquenil on hold [facility]s [facility] Stress dose steroids with hydrocortisone 50mg IV BID for now then transition back to usual 10mg prednisone daily in next 24-48 hours --> decreased to 20mg IV Q8H today and BPs improved and will plan to place back on usual prednisone for tomorrow unless becomes hypotensive again 02/01 --> placed back on usual 10mg prednisone daily (7) Elevated troponin: Plan: suspect 2nd to demand/hypovolemic shock as above No CP reported EKG stable from prior Dec 2019, PACs no longer present Trending down --.> 2nd to demand from hypovolemic shock No CP/SOB reported Continued monitoring on telemetry -- NSR (8) DVT prophylaxis: Plan: Heparin SQ Plan: Continued inpatient monitoring Admission and Anticipated Discharge Date Admission Date: January 29, 2021 Supervising Physician Co-Signing Physician Notes Attending Attestation- Chart reviewed, care plan d/w MARLI Islas. I agree w/ the huston components of her documentation. A/P: 1. shock - resolved; 2nd to #2. 2. SBO with concern for perforation - POD#3 s/p ex lap by Dr Cabrera; ADOLFO performed, bowel was run and no perf seen. 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 3. hypoglycemia - resolved w/ glucose added to IVF and stress dose steroids. 4. ATN - supportive care, IVF, serial labs. IMPROVED. 5. MCTD - cont stress-dose steroids; cont holding plaquenil. 6. COPD - stable. 7. Metabolic encephalopathy - hospital psychosis, etc. Supportive care. Colt Holt MD Subjective Patient evaluated this morning. Had eventful night and was thinking she was part of a conspiracy but since that time has resolved. Aware she is at [facility] and states year 2020. Got PICC line yesterday and currently receiving TPN. States she is not having belly pain at this time but is tender trish-incisional on exam. States she is passing gas but no BM. Asking for swab and provided. She states she would like some clears -- at discretion of primary service. No chest pain, shortness of breath, nausea, vomiting. NGT clamped intermittently per Dr Cabrera's orders. States she had her johns removed this morning but has not yet voided (removed approximately 15 minutes ago per nursing, who admits bladder scan ~200cc last evening and flushed without complete removal and once manipulated last evening at one point then drained 400cc, clear yellow urine). Kidney function improved and off of supplemental IVF while receiving the TPN as slightly volume up now but breathing stable. Remains PCU status. CM following as patient likely to need some TPN at discharge given previous episodes. Review of Systems Review of Systems: All systems reviewed & are unremarkable except as noted in HPI & below Physical Exam Physical Exam: Constitutional well developed, + thin, + frail appearing and cooperative; no acute distress Eyes no scleral abnormality and no corneal abnormality ENMT Mouth: + dry oral mucous membranes (improved with oral swab); no oral mucosal abnormality NGT with scant billious drainage, clamped Neck normal visual inspection and trachea midline Respiratory + abnormal respiratory effort (shallow breaths at times), no respiratory distress and no labored breathing. on 2L NC Auscultation: lungs clear to auscultation bilaterally (slight diminished in bases); no rhonchi and no wheezes Cardiovascular Rate/Rhythm: regular rate Heart Sounds: normal S1 and normal S2 Extremities: no edema Gastrointestinal (Abdomen) faint hypoactive bowel sounds, +distended, dressing c/d/i, trish-incisional tenderness. no gaurding or ridigity Musculoskeletal Extremities: no cyanosis and no clubbing Skin warm, dry Neurologic Motor/Sensory: no tremor and no asterixis, no focal deficits Psychiatric Orientation: alert and oriented x 3 (2020, in tiro at ) Genitourinary no johns Results & Data Results & Data ([facility]) Vital Signs (Past 12 Hours) Vital Signs Temp Pulse Pulse Resp BP BP Pulse Ox 02/01/21 07:00 36.5 C 75 14 149/76 H 96 02/01/21 04:00 36.7 C 81 14 158/82 H 96 01/31/21 23:59 88 01/31/21 23:55 36.7 C 94 H 15 152/80 H 94 Laboratory Results 02/01/21 01/31/21 01/31/21 Range/Units 05:03 23:54 17:47 Sodium 141 (136-145) mmol/L Potassium 3.3 L (3.5-5.1) mmol/L Chloride 102 (98-107) mmol/L Carbon Dioxide 35 H (21-32) mmol/L Anion Gap 4.0 (3-11) BUN 41 H (7-18) mg/dl Creatinine 1.27 H D (0.6-1.2) mg/dl Est Cr Clr Drug Dosing 31.5 ml/min Est GFR ( Amer) 49.9 ml/min Est GFR (Non-Af Amer) 43.0 ml/min BUN/Creatinine Ratio 32.7 H (10-20) Glucose 98 (70-99) mg/dl POC Glucose 122 H 89 (70-99) mg/dl Calcium 7.4 L (8.5-10.1) mg/dl Phosphorus 2.0 L D (2.5-4.9) mg/dl Magnesium 2.0 (1.8-2.4) mg/dl Troponin I (0-0.045) ng/ml Triglycerides 155 H (0-150) mg/dl 01/31/21 01/31/21 Range/Units 11:42 04:46 Sodium (136-145) mmol/L Potassium (3.5-5.1) mmol/L Chloride (98-107) mmol/L Carbon Dioxide (21-32) mmol/L Anion Gap (3-11) BUN (7-18) mg/dl Creatinine (0.6-1.2) mg/dl Est Cr Clr Drug Dosing ml/min Est GFR ( Amer) ml/min Est GFR (Non-Af Amer) ml/min BUN/Creatinine Ratio (10-20) Glucose (70-99) mg/dl POC Glucose 81 (70-99) mg/dl Calcium (8.5-10.1) mg/dl Phosphorus (2.5-4.9) mg/dl Magnesium (1.8-2.4) mg/dl Troponin I 0.178 H* (0-0.045) ng/ml Triglycerides (0-150) mg/dl PG Care Time/CCT Total # of Minutes Spent Total Time Spent with Patient: Total time spent is greater than 50% in coordination of care (as documented) at patient's floor/unit and/or counseling patient: Coding Level of Care Code 87608 Subseq Hosp Care Lvl 3 Diagnoses Sepsis A41.9 Sepsis acute organ dysfunction status: unspecified Sepsis type: sepsis due to unspecified organism Hypovolemic shock R57.1 TAB (acute kidney injury) N17.9 Bowel perforation K63.1 Chronic obstructive asthma J44.9 Mixed connective tissue disease M35.1 Elevated troponin R77.8 DVT prophylaxis Z29.9 (1) Sepsis Sepsis acute organ dysfunction status: unspecified Sepsis type: sepsis due to unspecified organism Qualified Code(s): A41.9 - Sepsis, unspecified organism
[2021-02-01] MEDS ORDERED: POTASSIUM PHOSPHATE 24 MMOL in SODIUM CHLORIDE 0.9% 500 ML IV ONE (08:15)
[2021-02-01] MEDS: predniSONE 10 MG TABLET NG SCH (08:25)
[2021-02-01] MEDS: FAMOTIDINE 20 MG in SYRINGE 3 ML IV SCH (08:55)
[2021-02-01] MEDS ORDERED: ENOXAPARIN INJ 30 MG/0.3 ML SYR SQ SCH (09:00)
--- NOTE | 2021-02-01 10:15 | Nephrology Progress Note ---
Date of Service February 01, 2021 Assessment & Plan (1) TAB (acute kidney injury): Plan: Non-oliguric. CT did not demonstrate obstruction. Electrolytes acceptable. Volume status acceptable. Notable renal recovery. Seymour may be removed. Bladder scan PRN and straight cath as needed. Clinical presentation consistent with prerenal physiology and superimposed ATN. Medications appropriately dosed for kidney function. PPN started yesterday. Volume status replete. No significantly polyuric. Volume may be decreased with next PPN. Potassium and PO4 may be liberalized. IV Kphos provided this AM for hypokalemia and hypophosphatemia. Document strict I/O's. Repeat metabolic profile tomorrow AM with magnesium and PO4. Admission and Anticipated Discharge Date Admission Date: January 29, 2021 Subjective No acute events overnight. Pain reasonably controlled. No fevers or chills. I was informed by the bedside nurse regarding bladder scan >200 with only 50 ml post Seymour adjustment. Review of Systems Review of Systems: All systems reviewed & are unremarkable except as noted in HPI & below Constitutional: no weight loss, no weight gain and no problem reported Eyes: no problem reported Ear, Nose, Mouth, Throat: no problem reported Respiratory: no problem reported Cardiovascular: no problem reported Gastrointestinal: no problem reported Musculoskeletal: no problem reported Integumentary: no problem reported Neurologic: no problem reported Psychiatric: no problem reported Endocrine: no problem reported Hematologic / Lymphatic: no problem reported Physical Exam Constitutional: well developed, + thin and + frail appearing; no acute distress Eyes: no scleral abnormality and no corneal abnormality ENMT: Mouth: + dry oral mucous membranes; no oral mucosal abnormality Neck: normal visual inspection and trachea midline Respiratory: normal respiratory effort Auscultation: lungs clear to auscultation bilaterally Cardiovascular: Rate/Rhythm: regular rate Heart Sounds: normal S1 and normal S2 Extremities: no edema Musculoskeletal: Extremities: no cyanosis and no clubbing Skin: normal turgor; no lesions Neurologic: Motor/Sensory: no tremor and no asterixis Psychiatric: Orientation: alert and oriented x 3 Results & Data ([facility]) Vital Signs (Past 12 Hours) Vital Signs Temp Pulse Pulse Resp BP BP Pulse Ox 02/01/21 08:00 67 02/01/21 07:00 36.5 C 75 14 149/76 H 96 02/01/21 04:00 36.7 C 81 14 158/82 H 96 01/31/21 23:59 88 01/31/21 23:55 36.7 C 94 H 15 152/80 H 94 Laboratory Results Laboratory Results - last 24 hr 01/31/21 01/31/21 01/31/21 11:42 17:47 23:54 Sodium Potassium Chloride Carbon Dioxide Anion Gap BUN Creatinine Est Cr Clr Drug Dosing Est GFR ( Amer) Est GFR (Non-Af Amer) BUN/Creatinine Ratio Glucose POC Glucose 81 89 122 H Calcium Phosphorus Magnesium Triglycerides 02/01/21 05:03 Sodium 141 Potassium 3.3 L Chloride 102 Carbon Dioxide 35 H Anion Gap 4.0 BUN 41 H Creatinine 1.27 H D Est Cr Clr Drug Dosing 31.5 Est GFR ( Amer) 49.9 Est GFR (Non-Af Amer) 43.0 BUN/Creatinine Ratio 32.7 H Glucose 98 POC Glucose Calcium 7.4 L Phosphorus 2.0 L D Magnesium 2.0 Triglycerides 155 H PG Care Time/CCT Total # of Minutes Spent Total Time Spent with Patient: Total time spent is greater than 50% in coordination of care (as documented) at patient's floor/unit and/or counseling patient: Coding Level of Care Code 52507 Subseq Hosp Care Lvl 3 Diagnoses TAB (acute kidney injury) N17.9
[2021-02-01] MEDS ORDERED: CENTRAL PN IV SCH (16:00)
[2021-02-01] MEDS ORDERED: TPN IV SCH (16:00)
[2021-02-01] MEDS ORDERED: hydrALAZINE HCL 20 MG/ML VIAL IV ONE (18:07)
[2021-02-01] MEDS ORDERED: QUEtiapine FUMARATE 25 MG TABLET PO ONE (18:08)
[2021-02-01] MEDS ORDERED: ADENOSINE IV SOLN 3 MG/ML 2 ML VIAL IV ONE (19:49)
[2021-02-01] MEDS ORDERED: METOPROLOL TARTRATE 1 MG/ML VIAL IV ONE ×3 (19:50→22:11)
[2021-02-01] MEDS ORDERED: ADENOSINE IV SOLN 3 MG/ML 2 ML VIAL IV STA (19:56)
[2021-02-01] MEDS ORDERED: METOPROLOL TARTRATE 1 MG/ML VIAL IV STA ×2 (19:57→22:08)
--- NOTE | 2021-02-01 20:10 | Communication Note ---
Date of Service: February 01, 2021 Called to bedside for SVT, Code Purple. Patient was noted to be tachycardic to 200s with SVT on Tele/EKG. Of note, about 1 hour prior patient received IV hydralazine and IV Seroquel. She is noted on chart review to have had an elevated troponin on admission which downtrended. She was admitted on 01/29 for suspicion of bowel perforation. She had ex lap 01/29 without evidence of bowel perforation/ischemia. On exam patient was tachycardic, lungs CTA, BP elevated to 150/100. Patient was given Adenosine 6mg IV push with decrease in HR to 130s, noted to be sinus tachycardia. She also had 2g Mag IV started. She was given metoprolol tartrate 5mg IV x1 with further decrease in HR to low 100s. At that time her color was better, she was more alert and felt overall better. Labwork to include CBC, BMP, Mg, Phos, ICal ordered. ICal low at 0.99, calcium gluconate 2g IV ordered. K 3.4, will give 40 meq KRiders now. Repeat labwork in the AM. Will need adjustment of TPN electrolytes to account for phos and potassium. Due to transient hypoxia with tachycardia did order CTPE protocol. [facility] Radiologist called at 11PM to report findings of partially occlusive thrombi in a segmental branch of the right lower lobe, a segmental branch of the right upper lobe, and a segmental branch of the left upper lobe, with occlusive thrombus of a segmental branch of the left lower lobe. No heart strain reported. Discussed with surgical service that we will be starting Heparin gtt with bolus for treatment of PEs. Resident Activity Tracking Resident Involvement: Resident Care Provided Care Provided: Adult [facility] Medicine
[2021-02-01 20:15] LABS: Basophils # (auto) 0.01 K/uL (0-0.2); Basophils % (auto) 0.1 %; Eosinophils # (auto) 0.01 K/uL (0-0.5); Eosinophils % (auto) 0.1 %; Hematocrit (blood only) 33.4 % (37-47); Hemoglobin 10.9 g/dL (12.0-16.0); Immature Granulocytes # (auto) 0.04 K/uL (0.00-0.02); Immature Granulocytes % (auto) 0.4 %; Lymphocytes # (auto) 2.59 K/uL (1.2-3.4); Lymphocytes % (auto) 24.5 %; Mean Corpuscular Hemoglobin 30.2 pg (25-34); Mean Corpuscular Volume 92.5 fL (80-100); Mean Platelet Volume 11.3 fL (7.4-10.4); Monocytes # (auto) 0.69 K/uL (0.11-0.59); Monocytes % (auto) 6.5 %; Neutrophils # (auto) 7.22 K/uL (1.4-6.5); Neutrophils % (auto) 68.4 %; Platelet Count 145 K/uL (130-400); RDW Coefficient of Variation 13.8 % (11.5-14.5); RDW Standard Deviation 46.8 fL (36.4-46.3); Red Blood Count 3.61 M/uL (4.2-5.4); White Blood Count 10.56 K/uL (4.8-10.8)
--- NOTE | 2021-02-01 20:28 | Communication Note ---
Date of Service: February 01, 2021 This provider responded to a code purple this evening in room 108. This patient of Dr. Cabrera who recently underwent exploratory laparotomy due to concern for bowel ischemia. At time of surgery patient was noted to have chronic bowel dilation along with chronic pneumatosis and no ischemic bowel. Lysis of adhesions were performed. Bowel resection was not required. Since surgery patient has been monitored on the telemetry unit. She is receiving TPN for nutrition. At the time of my arrival the hospitalist and intensive care unit providers were present and assisting with care. Nursing staff noted the patient became acutely agitated. At this time the patient was noted to be in a narrow complex tachycardia with heart rate in excess of 200. She was given adenosine 6 mg x 2 along with intravenous metoprolol. With these modalities the patient achieved a heart rate in the 90s. This appeared to be normal sinus rhythm. When patient was restored in normal sinus rhythm she became much less agitated and became more comfortable. Labs were ordered and sent. A CBC revealed her white blood cell count was within normal range. Her hemoglobin and hematocrit were 10.9 and 33.4 which were both stable from values checked over the past 3 days. Platelet count was noted to be within normal range. Chemistry profile showed patient's sodium was normal at 141. Potassium was low at 3.4. BUN and creatinine were noted to be 34 and 1.0 respectively. Magnesium was 2.5. Phosphorus was noted to be low at 2.2 and ionized calcium is low at 0.99. Patient did have a slight elevation of her troponin noted at 0.16. Suspect her elevated troponin may be on the basis of demand ischemia due to her tachycardic event. Results of CT showed the patient had multiple pulmonary emboli. She was noted to have a partially occlusive thrombi of segmental branch of the right lower lobe, segmental branch of the right upper lobe and a segmental branch of the lef t upper lobe. An occlusive thrombus was also noted with segmental branches of the left lower lobe. There was no evidence of pneumonia on the study. Discussed case with the medical service. Supplementation to the above-noted electrolyte abnormalities has been initiated. Due to the pulmonary emboli noted on the CT scan a heparin drip will be initiated. They are also planning on checking a 2D echo. Serial labs will be followed. I revisited the patient several hours later and she was noted to be hemodynamically stable. Her heart rate was well controlled and was normal sinus rhythm. She did require supplemental oxygen but her pulse ox was noted to be 100%. She appeared less agitated. The above plan was discussed with the bedside nurse. We will continue to follow closely.
[2021-02-01] MEDS ORDERED: CALCIUM GLUCONATE 10% 1,000 MG in SODIUM CHLORIDE 0.9% 50 ML IV ONE (20:30)
[2021-02-01 20:31] LABS: Calcium 7.3 mg/dl (8.5-10.1); Creatinine Clr Calc Pharmacy 37.4 ml/min; Est GFR (African American) 61.3 ml/min; Est GFR (Non-African American) 52.9 ml/min; Magnesium 2.5 mg/dl (1.8-2.4); Potassium 3.4 mmol/L (3.5-5.1)
[2021-02-01] MEDS ORDERED: CALCIUM GLUCONATE 10% 2,000 MG in SODIUM CHLORIDE 0.9% 50 ML IV ONE (20:33)
[2021-02-01 20:34] LABS: Mean Corpuscular Hgb Conc 32.6 g/dL (32-36)
[2021-02-01] MEDS ORDERED: HALOPERIDOL LACTATE 5 MG/ML 1 ML VIAL IM STA (20:36)
[2021-02-01 20:37] LABS: Phosphorus 2.2 mg/dl (2.5-4.9); Troponin I 0.16 ng/ml (0-0.045)
[2021-02-01] MEDS ORDERED: HALOPERIDOL LACTATE 5 MG/ML 1 ML VIAL ONE (20:43)
[2021-02-01] MEDS: POTASSIUM CHLORIDE / WTR 10 MEQ/100 ML PLCT IV SCH ×3 (20:53→23:23)
[2021-02-01] MEDS ORDERED: FAMOTIDINE 20 MG in SYRINGE 3 ML IV STA (21:36)
[2021-02-01] MEDS ORDERED: LORazepam 0.5 MG/1 ML VIAL IV STA (21:37)
[2021-02-01] MEDS ORDERED: OPTIRAY 320 125ml IV ONE (21:42)
[2021-02-01] MEDS ORDERED: METOPROLOL TARTRATE 1 MG/ML VIAL IV PRN (22:08)
[2021-02-01] MEDS ORDERED: Heparin IV Adult Wt-Based Standard WITH Bolus Protocol IV STA (23:02)
[2021-02-01] MEDS ORDERED: HEPARIN SOD (PORCINE) 1000 UNIT/ML IV ONE (23:30)
[2021-02-01 23:41] LABS: Partial Thromboplastin Time 25.5 Seconds (21.0-31.0); Prothrombin Time 9.9 Seconds (9.0-12.0)
[2021-02-01] MEDS: HEPARIN SODIUM/DEXTROSE 25,000 UNITS/500 ML BAG IV SCH (23:46)
[2021-02-02] MEDS: POTASSIUM CHLORIDE / WTR 10 MEQ/100 ML PLCT IV SCH (00:36)
[2021-02-02 06:09] LABS: Hematocrit (blood only) 31.6 % (37-47); Mean Corpuscular Hemoglobin 29.8 pg (25-34); Mean Corpuscular Hgb Conc 31.6 g/dL (32-36); Mean Platelet Volume 11.7 fL (7.4-10.4); Platelet Count 115 K/uL (130-400); RDW Coefficient of Variation 14.2 % (11.5-14.5); RDW Standard Deviation 48.7 fL (36.4-46.3); Red Blood Count 3.36 M/uL (4.2-5.4); White Blood Count 9.15 K/uL (4.8-10.8)
[2021-02-02 07:08] LABS: BUN Creatinine Ratio 33.3 (10-20); Calcium 7.3 mg/dl (8.5-10.1); Est GFR (African American) 74.6 ml/min; Est GFR (Non-African American) 64.4 ml/min
--- NOTE | 2021-02-02 07:14 | CT Scan Report ---
CHEST CTA for PULMONARY ARTERIES CT DOSE: 356.26 mGy.cm HISTORY: Postop. Shortness of breath. TECHNIQUE: Multiaxial CT images of the chest were performed following the intravenous administration of contrast to evaluate the pulmonary arteries. Maximal intensity projection images were also obtaine d. A dose lowering technique was utilized adhering to the principles of ALARA. COMPARISON STUDY: Chest CTA 08/09/2018. Abdomen and pelvis CT 01/29/2021 FINDINGS: Normal caliber thoracic aorta with no evidence for dissection. Scattered filling defects wi thin the segmental and subsegmental branches of the right upper lobe, lingula, and bilateral lower lo bes consistent with pulmonary emboli. No evidence for right-sided heart strain. Trace bilateral pleur al effusions. The heart is top normal in size. No pericardial effusion. No mediastinal or hilar lymph adenopathy. There are calcified subcarinal lymph nodes. Mild thickening of the mid to distal esophagu s. Limited views of the upper abdomen demonstrate normal liver and calcified granulomas within the sp ernie. There is pneumoperitoneum which may be due to the recent postoperative change. No suspicious ly tic or blastic osseous lesions. Calcified granuloma within the right lung base. A few bibasilar densi ties favor subsegmental atelectasis. IMPRESSION: 1. Bilateral segmental/subsegmental pulmonary emboli. No evidence for right-sided heart strain. 2. Trace bilateral pleural effusions. 3. Small amount of pneumoperitoneum is again noted. This is nonspecific but may be due to the recent postoperative change. ACT 112: Negative or not required by law. Electronically signed by: Jam Lewis M.D. 02/02/2021 7:13 AM
[2021-02-02] MEDS ORDERED: HALOPERIDOL LACTATE 5 MG/ML 1 ML VIAL ONE (07:30)
[2021-02-02 07:59] LABS: Magnesium 1.9 mg/dl (1.8-2.4); Potassium 4.2 mmol/L (3.5-5.1)
--- NOTE | 2021-02-02 08:10 | Surgery Progress Note ---
Date of Service February 02, 2021 Assessment & Plan (1) Pulmonary embolism: Plan: hemodynamically stable currently oxygen sats good. ok to start heparin as she is pod 4 and risk /benefit favors using it abd exam completely benign. awaiting bowel fx [facility] covering for weekend. Admission and Anticipated Discharge Date Admission Date: January 29, 2021 Subjective pt confused...pt given some haldol this am. events of last night noted/discussed with Dr. Earl. Physical Exam 2 Physical Exam: awake but disoriented. unable to answer questions. Gastrointestinal (Abdomen): soft. wound looks great. no guarding or rigidity. Results & Data ([facility]) Vital Signs (Past 12 Hours) Vital Signs Temp Pulse Pulse Resp BP BP Pulse Ox 02/02/21 06:06 141 H 141 H 168/129 H 168/129 H 02/02/21 05:00 36.4 C L 73 16 100 02/02/21 04:00 76 16 118/70 100 02/02/21 03:00 82 13 100 02/02/21 02:00 105 H 17 100 02/02/21 01:00 135 H 22 100 02/02/21 00:00 93 H 18 100 02/01/21 23:59 105 H 02/01/21 23:00 75 14 100 02/01/21 22:13 142 H 179/126 H 02/01/21 22:00 152 H 26 H 02/01/21 21:00 120 H 17 158/97 H 71 L PG Care Time/CCT Total # of Minutes Spent Total Time Spent with Patient: Total time spent is greater than 50% in coordination of care (as documented) at patient's floor/unit and/or counseling patient: Coding Level of Care Code None Diagnoses Pulmonary embolism I26.99
--- NOTE | 2021-02-02 08:14 | Hospitalist Progress Note ---
Date of Service February 02, 2021 Assessment & Plan (1) Acute delirium: Plan: pt has developed delerium in the post operative setting/ ICU delerium, will consider sleep deprivation and post op state to contribute to this, seems to have paradoxical affect from ativan, using haldol and adding some seroquel to try to help sleep to improve, serology seems stable and no concern for alternative infection at present (2) Sepsis: Plan: Admitted 01/29 with concerns for bowel perforation on imaging following n/v with reported 4 garbage cans full of vomit. On admission, was hypotensive with BP 78/54 with Lactic 3.5, BUN/Cr 59/3.6 (baseline Cr ~1) WBC was 14.4k CTAP with excessive pneumatosis of multiple small bowel loops with small amount of associated pneumoperitoneum. Although pneumatosis is nonspecific, the findings are highly suggestive of small bowel ischemia with bowel perforation. Surgical consultation is recommended. Moderately dilated fluid-filled proximal to mid small bowel favors an underlying small bowel obstruction although a discrete transition point is not identified. 01/29/21 underwent Exploratory laparotomy with lysis of adhesions with Dr. Cabrera and ICU post-operative for management given complex history/possible need for continued monitoring (extubated post-op) --> no evidence of ischemic/infection or gross perforation, did have some banding that could have been contributing to bowel injury (lysis of adhesions undertaken) antibiotics stopped by surgery famotidine IVP daily for GI prophylaxis given reported reflux (3) Hypovolemic shock: Plan: 2nd to dehydration/vomiting/above resolved with crystaloid (4) TAB (acute kidney injury): Plan: acute kidney injury with baseline good renal function of CKD 2, TAB has resolved Nephrology on consult -- appreciate continued assistance (5) Bowel perforation: Plan: concerns for as above given imaging. no perforation during OR per report (6) Chronic obstructive asthma: Plan: stable at this time (7) Mixed connective tissue disease: Plan: plaquenil on hold Follows with [facility] Stress dose steroids with hydrocortisone 50mg IV BID now transitioned to ng prednisone (8) DVT prophylaxis: Plan: in evening of 10, developed svt and respiratory distress with hypoxia and tachypnea, found to have acute PE despite being on sc heparin, transitioned to heparin Gtt, did have some Picc line bleeding (9) Elevated troponin: Plan: suspect 2nd to demand/hypovolemic shock as above No CP reported EKG stable from prior Dec 2019, PACs no longer present Troponin trend never higher that 0.26 EKG with CP Admission and Anticipated Discharge Date Admission Date: January 29, 2021 Subjective this pt has delirium likely related to hospital stay, was bleeding from picc line site this am, has remained confused all day, needing haldol ativan and seroquel, still on TPN and at times needing soft limb restraints. Review of Systems Review of Systems: Unobtainable due to cognitive status Physical Exam Physical Exam: The patient appeared confused and weakened, no focal abdominal pain Vital signs as documented. Head exam is normocephalic atraumatic Neck is without JVD, thyromegaly, or carotid bruits. Lungs are clear to auscultation, no focal loss of breath sounds Cardiac exam, Rhythm is regular.. No murmurs, rubs or gallops. Abdominal exam reveals hyperactive bowel sounds, soft non tender, no masses, no guarding Extremities are nonedematous and both pedal pulses are present Neurologic exam is alert and orientedx 1 , no focal loss of strength or sensation Skin is without bruises or rashes, abdominal wound looks good Psychologically is without concerns for anxiety or depression Results & Data Results & Data ([facility]) Vital Signs (Past 12 Hours) Vital Signs Temp Pulse Pulse Resp BP BP Pulse Ox 02/02/21 06:06 141 H 141 H 168/129 H 168/129 H 02/02/21 05:00 97.5 F L 73 16 100 02/02/21 04:00 76 16 118/70 100 02/02/21 03:00 82 13 100 02/02/21 02:00 105 H 17 100 02/02/21 01:00 135 H 22 100 02/02/21 00:00 93 H 18 100 02/01/21 23:59 105 H 02/01/21 23:00 75 14 100 02/01/21 22:13 142 H 179/126 H 02/01/21 22:00 152 H 26 H 02/01/21 21:00 120 H 17 158/97 H 71 L PG Care Time/CCT Total # of Minutes Spent Total Time Spent with Patient: Total time spent is greater than 50% in coordinat ion of care (as documented) at patient's floor/unit and/or counseling patient: Coding Level of Care Code 75980 Subseq Hosp Care Lvl 3 Diagnoses Sepsis A41.9 Sepsis acute organ dysfunction status: unspecified Sepsis type: sepsis due to unspecified organism Hypovolemic shock R57.1 TAB (acute kidney injury) N17.9 Bowel perforation K63.1 Chronic obstructive asthma J44.9 Mixed connective tissue disease M35.1 DVT prophylaxis Z29.9 Elevated troponin R77.8 Acute delirium R41.0 (1) Sepsis Sepsis acute organ dysfunction status: unspecified Sepsis type: sepsis due to unspecified organism Qualified Code(s): A41.9 - Sepsis, unspecified organism
[2021-02-02] MEDS: FAMOTIDINE 20 MG in SYRINGE 3 ML IV SCH (09:54)
[2021-02-02] MEDS: predniSONE 10 MG TABLET NG SCH (09:54)
--- NOTE | 2021-02-02 11:44 | Nephrology Progress Note ---
Date of Service February 02, 2021 Assessment & Plan (1) TAB (acute kidney injury): Plan: Non-oliguric. CT did not demonstrate obstruction. Electrolytes acceptable. Volume status acceptable. Creatinine normalized. Clinical presentation consistent with prerenal physiology and superimposed ATN. Medications appropriately dosed for kidney function. Parental nutrition and electrolyte replacement are being provided as needed. Monitor metabolic profile q 12 hours with serum phosphorus. Document strict I/O's. I have nothing additional to add at this time. Nephrology will follow peripherally. Please call with questions or concerns. Admission and Anticipated Discharge Date Admission Date: January 29, 2021 Subjective Code purple noted overnight. Ashia became acutely agitated. 1:1 remains at the bedside this AM. Ashia was sleeping comfortably. O2 has been weaned from Oxymask to NC. Noted that patient was in a narrow complex tachycardia with heart rate in excess of 200 last evening. She was given adenosine 6 mg x 2 along with intravenous metoprolol. Heart rate remains sinus in the 90s now. IV electrolyte replacement provided for hypocalcemia and hypophosphatemia. CT demonstrating several PE. Heparin gtt started. Parental nutrition is being provided. Review of Systems Review of Systems: All systems reviewed & are unremarkable except as noted in HPI & below Physical Exam Constitutional: well developed, + thin and + frail appearing; no acute distress Eyes: no scleral abnormality and no corneal abnormality ENMT: Mouth: + dry oral mucous membranes; no oral mucosal abnormality Neck: normal visual inspection and trachea midline Respiratory: normal respiratory effort Auscultation: lungs clear to auscultation bilaterally Cardiovascular: Rate/Rhythm: regular rate Heart Sounds: normal S1 and normal S2 Extremities: no edema Musculoskeletal: Extremities: no cyanosis and no clubbing Skin: normal turgor; no lesions Neurologic: Motor/Sensory: no tremor and no asterixis Psychiatric: Orientation: alert and oriented x 3 Results & Data ([facility]) Vital Signs (Past 12 Hours) Vital Signs Temp Pulse Pulse Resp BP BP Pulse Ox 02/02/21 08:00 36.8 C 91 H 18 173/86 H 99 02/02/21 06:06 141 H 141 H 168/129 H 168/129 H 02/02/21 05:00 36.4 C L 73 16 100 02/02/21 04:00 76 16 118/70 100 02/02/21 03:00 82 13 100 02/02/21 02:00 105 H 17 100 02/02/21 01:00 135 H 22 100 02/02/21 00:00 93 H 18 100 02/01/21 23:59 105 H Laboratory Results Laboratory Results - last 24 hr 02/01/21 02/01/21 02/01/21 18:09 20:03 20:03 WBC 10.56 RBC 3.61 L Hgb 10.9 L Hct 33.4 L MCV 92.5 MCH 30.2 MCHC 32.6 RDW Std Deviation 46.8 H RDW Coeff of Bo 13.8 Plt Count 145 MPV 11.3 H Immature Gran % (Auto) 0.4 Neut % (Auto) 68.4 Lymph % (Auto) 24.5 [place] % (Auto) 6.5 Eos % (Auto) 0.1 Baso % (Auto) 0.1 Neut # (Auto) 7.22 H Lymph # (Auto) 2.59 [place] # (Auto) 0.69 H Eos # (Auto) 0.01 Baso # (Auto) 0.01 Immature Gran # (Auto) 0.04 H PT INR APTT PTT Ratio Sodium 141 Potassium 3.4 L Chloride 105 Carbon Dioxide 32 Anion Gap 4.0 BUN 34 H Creatinine 1.07 Est Cr Clr Drug Dosing 37.4 Est GFR ( Amer) 61.3 Est GFR (Non-Af Amer) 52.9 BUN/Creatinine Ratio 32.0 H Glucose 124 H POC Glucose 84 Calcium 7.3 L Ionized Calcium Phosphorus 2.2 L Magnesium 2.5 H Troponin I 0.160 H* 02/01/21 02/01/21 02/01/21 20:05 20:08 23:42 WBC RBC Hgb Hct MCV MCH MCHC RDW Std Deviation RDW Coeff of Bo Plt Count MPV Immature Gran % (Auto) Neut % (Auto) Lymph % (Auto) [place] % (Auto) Eos % (Auto) Baso % (Auto) Neut # (Auto) Lymph # (Auto) [place] # (Auto) Eos # (Auto) Baso # (Auto) Immature Gran # (Auto) PT 9.9 INR 1.0 APTT 25.5 PTT Ratio 1.0 Sodium Potassium Chloride Carbon Dioxide Anion Gap BUN Creatinine Est Cr Clr Drug Dosing Est GFR ( Amer) Est GFR (Non-Af Amer) BUN/Creatinine Ratio Glucose POC Glucose 71 Calcium Ionized Calcium 0.99 L Phosphorus Magnesium Troponin I 02/02/21 02/02/21 02/02/21 05:47 05:47 05:47 WBC 9.15 RBC 3.36 L Hgb 10.0 L Hct 31.6 L MCV 94.0 MCH 29.8 MCHC 31.6 L RDW Std Deviation 48.7 H RDW Coeff of Bo 14.2 Plt Count 115 L MPV 11.7 H Immature Gran % (Auto) Neut % (Auto) Lymph % (Auto) [place] % (Auto) Eos % (Auto) Baso % (Auto) Neut # (Auto) Lymph # (Auto) [place] # (Auto) Eos # (Auto) Baso # (Auto) Immature Gran # (Auto) PT INR APTT 53.0 H* PTT Ratio 2.0 Sodium 142 Potassium Chloride 109 H Carbon Dioxide 32 Anion Gap 1.0 L BUN 30 H Creatinine 0.91 Est Cr Clr Drug Dosing 44.0 Est GFR ( Amer) 74.6 Est GFR (Non-Af Amer) 64.4 BUN/Creatinine Ratio 33.3 H Glucose 88 POC Glucose Calcium 7.3 L Ionized Calcium Phosphorus 2.0 L Magnesium Troponin I 02/02/21 02/02/21 02/02/21 07:12 07:14 07:33 WBC RBC Hgb Hct MCV MCH MCHC RDW Std Deviation RDW Coeff of Bo Plt Count MPV Immature Gran % (Auto) Neut % (Auto) Lymph % (Auto) [place] % (Auto) Eos % (Auto) Baso % (Auto) Neut # (Auto) Lymph # (Auto) [place] # (Auto) Eos # (Auto) Baso # (Auto) Immature Gran # (Auto) PT INR APTT PTT Ratio Sodium Potassium 4.2 D Chloride Carbon Dioxide Anion Gap BUN Creatinine Est Cr Clr Drug Dosing Est GFR ( Amer) Est GFR (Non-Af Amer) BUN/Creatinine Ratio Glucose POC Glucose 69 L* 76 Calcium Ionized Calcium Phosphorus Magnesium 1.9 Troponin I 02/02/21 02/02/21 11:06 11:08 WBC RBC Hgb Hct MCV MCH MCHC RDW Std Deviation RDW Coeff of Bo Plt Count MPV Immature Gran % (Auto) Neut % (Auto) Lymph % (Auto) [place] % (Auto) Eos % (Auto) Baso % (Auto) Neut # (Auto) Lymph # (Auto) [place] # (Auto) Eos # (Auto) Baso # (Auto) Immature Gran # (Auto) PT INR APTT PTT Ratio Sodium Potassium Chloride Carbon Dioxide Anion Gap BUN Creatinine Est Cr Clr Drug Dosing Est GFR ( Amer) Est GFR (Non-Af Amer) BUN/Creatinine Ratio Glucose POC Glucose 64 L* 75 Calcium Ionized Calcium Phosphorus Magnesium Troponin I PG Care Time/CCT Total # of Minutes Spent Total Time Spent with Patient: Total time spent is greater than 50% in coordination of care (as documented) at patient's floor/unit and/or counseling patient: Coding Level of Care Code 66656 Subseq Hosp Care Lvl 3 Diagnoses TAB (acute kidney injury) N17.9
--- NOTE | 2021-02-02 12:26 | XCELERA ---
[id number]
[2021-02-02] MEDS ORDERED: QUEtiapine FUMARATE 25 MG TABLET NG ONE (12:39)
--- NOTE | 2021-02-02 14:55 | Pharmacy Report ---
PHA: Parenteral Nutrition Con - Date of Service February 02, 2021 - Scope Pharmacy was consulted on 01/31 to manage parenteral nutrition orders for this patient. - Subjective The patient is currently on day 3 of central parenteral nutrition for SBO. - Objective Height: 5 ft 1 in Weight: 50 kg Diet: NPO Vascular Access:: PICC Intake & Output (24hrs):: Intake & Output 01/31/21 02/01/21 02/02/21 02/03/21 06:59 06:59 06:59 06:59 Intake Total 3117.499 / 3117.499 923.333 / 309.868 8251 / 3378 Output Total 895 / 895 825 / 825 400 / 400 Balance 2222.499 / 2222.499 98.333 / 98.333 2978 / 2978 Weight 48.4 kg 51 kg 50 kg Laboratory Data (Last 24 Hr):: 02/01/21 02/02/21 02/02/21 20:03 05:47 07:33 Sodium 141 142 Potassium 3.4 L 4.2 D Chloride 105 109 H Carbon Dioxide 32 32 BUN 34 H 30 H Creatinine 1.07 0.91 Glucose 124 H 88 Calcium 7.3 L 7.3 L Phosphorus 2.2 L 2.0 L Magnesium 2.5 H 1.9 Recent Pertinent Medications:: 24 mmol kphos yesterday morning, then 40meq KCL and 2g Ca gluconate last evening Nutrition Assessment:: Please refer to the Notes section of the EMR for the most recent cellars supervisor note. - Assessment As patient received a significant amount of replacement yesterday (some while the first TPN bag infusing and some while the second TPN bag infusing), it is difficult to asses true needed changes to current bag. Potassium increased significantly from 3.3 to 4.2, while phos remained the same. I am hesitant to increase potassium again given jump and significant replacement. Will continue with current amount and hopefully will be able to better assess true trend tomorrow. Phos will be increased today. As the chloride also increased from 102 to 109, will reduce the amount of sodium chloride and transition some of this over to sodium phosphate. Given the significant amount of phos in the bag, will withhold calcium in the bag to avoid any issues with precipitation. TGs were slightly elevated upon initiation. Will continue with reduced dose lipids and recommended a repeat TG level within a few days. This was discussed with dietary who will coordinate with provider. Protein is at goal and dextrose should be able to be advanced to goal tomorrow. - Plan For day 3 of PN administration, the following will be ordered: Macronutrients Amino acids 70 grams/day Dextrose 150 grams/day Lipids 30 grams/day Micronutrients Sodium phosphate 12 MMol Sodium chloride 30 mEq Sodium acetate 10 mEq Potassium phosphate 21 mMol Potassium chloride 30 mEq Magnesium sulfate 4.06 mEq Multivitamins 10 mL Trace Elements 1 mL Additional additives: thiamine, folic acid Total volume 1120.49 mL to be infused over 24 hrs will provide ~1100 kcal/day Final osmolarity [] mOsm/L (maximum for PPN is 900 mOsm/L) Labs, as indicated, will be ordered per protocol Pharmacy will continue to follow and adjust parenteral nutrition orders on a daily basis. Thank you for allowing us to participate in the care of this patient.
[2021-02-02] MEDS: LORazepam 0.5 MG/1 ML VIAL IV PRN (15:12)
[2021-02-02] MEDS: HALOPERIDOL LACTATE 5 MG/ML 1 ML VIAL IV PRN (15:35)
[2021-02-02] MEDS ORDERED: TPN IV SCH (16:00)
[2021-02-02] MEDS ORDERED: CENTRAL PN IV SCH (16:00)
[2021-02-02] MEDS ORDERED: METOPROLOL TARTRATE 1 MG/ML VIAL IV PRN (16:38)
--- NOTE | 2021-02-02 17:46 | Electrocardiogram Report ---
Test Reason : Blood Pressure : / mmHG Vent. Rate : 203 BPM Atrial Rate : 202 BPM P-R Int : 000 ms QRS Dur : 090 ms QT Int : 230 ms P-R-T Axes : 000 -78 101 degrees QTc Int : 422 ms Poor data quality, interpretation may be adversely affected Supraventricular tachycardia Left axis deviation Inferior infarct (cited on or before 01-FEB-2021) Anterolateral infarct (cited on or before 01-FEB-2021) Abnormal ECG Confirmed by Orestes Gillespie ([id number]) on 02/02/2021 5:46:48 PM Referred By: REFERRED SELF Confirmed By:Messi Gillespie
--- NOTE | 2021-02-02 17:46 | Electrocardiogram Report ---
Test Reason : Blood Pressure : / mmHG Vent. Rate : 099 BPM Atrial Rate : 099 BPM P-R Int : 200 ms QRS Dur : 094 ms QT Int : 354 ms P-R-T Axes : 079 -35 069 degrees QTc Int : 454 ms Sinus rhythm with occasional Premature ventricular complexes Left axis deviation Poor R wave progression, consider anterior CA vs. lead placement vs. LVH Abnormal ECG When compared with ECG of 01-FEB-2021 19:50, (unconfirmed) Significant changes have occurred Confirmed by Orestes Gillespie ([id number]) on 02/02/2021 5:46:33 PM Referred By: REFERRED SELF Confirmed By:Messi Gillespie
[2021-02-02] MEDS: QUEtiapine FUMARATE 25 MG TABLET PO SCH (21:27)
[2021-02-03] MEDS: HEPARIN SODIUM/DEXTROSE 25,000 UNITS/500 ML BAG IV SCH (00:12)
[2021-02-03 05:24] LABS: Hematocrit (blood only) 26.3 % (37-47); Hemoglobin 8.6 g/dL (12.0-16.0); Mean Corpuscular Hemoglobin 30.1 pg (25-34); Mean Corpuscular Hgb Conc 32.7 g/dL (32-36); Mean Platelet Volume 11.3 fL (7.4-10.4); Platelet Count 111 K/uL (130-400); RDW Coefficient of Variation 14.2 % (11.5-14.5); RDW Standard Deviation 48.4 fL (36.4-46.3); Red Blood Count 2.86 M/uL (4.2-5.4); White Blood Count 7.12 K/uL (4.8-10.8)
[2021-02-03 05:42] LABS: BUN Creatinine Ratio 40.5 (10-20); Calcium 7.4 mg/dl (8.5-10.1); Est GFR (African American) 91.3 ml/min; Est GFR (Non-African American) 78.8 ml/min; Magnesium 1.6 mg/dl (1.8-2.4); Potassium 4.4 mmol/L (3.5-5.1)
[2021-02-03 05:48] LABS: Partial Thromboplastin Ratio 3.1
[2021-02-03 05:49] LABS: Phosphorus 3.2 mg/dl (2.5-4.9)
[2021-02-03 05:53] LABS: Partial Thromboplastin Time 82.6 Seconds (21.0-31.0)
--- NOTE | 2021-02-03 07:26 | Hospitalist Progress Note ---
Date of Service February 03, 2021 Assessment & Plan (1) Anemia: Plan: acute blood loss anemia with circulating anticoagulant in post operative setting , will transfuse 2 units prbc, stopped heparin gtt gen surgery to weigh in stopping heparin in the face of PE is with risk but pt may have acute bleeding issue at this time (2) Acute delirium: Plan: pt has developed delerium in the post operative setting/ ICU delerium, improved once had a better night sleep, seems to have paradoxical affect from ativan, using haldol and added some seroquel hs (3) Pulmonary embolism: Plan: She developed SVT was found to have pulmonary embolism started on heparin drip that of some bleeding from her PICC line site. Now has anemia which appears to be acute concern for blood loss anemia secondary to the anticoagulant. Patient will have her hemoglobin rechecked at 11 AM on 02/03 dropped so stopping heparin and may need to consider vena caval filter. However this would not treat her PE only prevent further insult. She is on GI prophylaxis at the current time (4) Sepsis: Plan: Admitted 01/29 with hypotensive with BP 78/54 with Lactic 3.5, BUN/Cr 59/3.6 (baseline Cr ~1) WBC 14.4k concerns for bowel perforation on imaging following n/v with reported 4 garbage cans full of vomit. CTAP with excessive pneumatosis of multiple small bowel loops with small amount of associated pneumoperitoneum. Although pneumatosis is nonspecific, the findings are highly suggestive of small bowel ischemia with bowel perforation. Surgical consultation is recommended. Moderately dilated fluid-filled proximal to mid small bowel favors an underlying small bowel obstruction although a d iscrete transition point is not identified. Findings discussed with Dr. Cochran at time of dictation. s/p Exploratory laparotomy with lysis of adhesions 01/29/[address] Cabrera Sepsis suspected 2nd to Hypovolemic Shock (5) Elevated troponin: Plan: suspect 2nd to demand/hypovolemic shock as above No CP reported EKG stable from prior Dec 2019, PACs no longer present Trending down --.> 2nd to demand from hypovolemic shock No CP/SOB reported Continued monitoring on telemetry (6) Hypovolemic shock: Plan: resolved (7) TAB (acute kidney injury): Plan: resolved (8) Bowel perforation: Plan: concerns for as above given imaging. no perforation during OR per report (9) Chronic obstructive asthma: Plan: continue usual inhaler incentive spirometer no sob/wheezing on exam supplemental O2 as above and encouraging incentive spirometery (10) Mixed connective tissue disease: Plan: plaquenil on hold Follows with Dr. [facility] Stress dose steroids with hydrocortisone 50mg IV BID for now then transition back to usual 10mg prednisone daily (11) DVT prophylaxis: Plan: Heparin therapeutic infusion has been held, since was treated for 2 days will add scd Admission and Anticipated Discharge Date Admission Date: January 29, 2021 Subjective the pt is much more calm today, she did drop her hgb this am and did have her heparin gtt held, Ct abdomen and pelvis, but could not use contrast due to npo status, when sitting to move to litter for CT blood did leak from abdominal wound, CT not formally read but seems like seroma or hematoma is present, Gen surgery director telecommunications is notified Review of Systems Review of Systems: Mild distress and fatigue no headache, no visual changes no speech or swallowing issues no chest pain, pressure or palpitations no shortness of breath, cough or wheezes left sided abdominal pain no dysuria, hematuria or frequency no focal joint pain or swelling no back pain, CVA tenderness or radicular pain no bruising, bleeding or rashes no focal signs of weakness or numbness or altered sensation no complaints of anxiety or depression.. Physical Exam Physical Exam: The patient appeared confused and weakened, no focal abdominal pain Vital signs as documented. Head exam is normocephalic atraumatic Neck is without JVD, thyromegaly, or carotid bruits. Lungs are clear to auscultation, no focal loss of breath sounds Cardiac exam, Rhythm is regular.. No murmurs, rubs or gallops. Abdominal exam reveals hyperactive bowel sounds, left sided abdominal pain, pt pulled my hand away examined in the am no masses felt, bowel sounds present Extremities are nonedematous and both pedal pulses are present Neurologic exam is alert and orientedx 1 , no focal loss of strength or sensation Skin is without bruises or rashes, abdominal wound looks good Psychologically is without concerns for anxiety or depression Results & Data Results & Data ([facility]) Vital Signs (Past 12 Hours) Vital Signs Temp Pulse Pulse Resp BP BP Pulse Ox 02/03/21 03:56 97.5 F L 83 20 127/87 99 02/03/21 00:06 97.9 F 88 18 138/84 96 02/02/21 22:30 70 16 100 02/02/21 22:09 77 02/02/21 22:00 73 14 138/84 100 02/02/21 21:30 74 14 100 02/02/21 21:00 77 14 97 02/02/21 20:00 76 15 145/97 H 100 PG Care Time/CCT Total # of Minutes Spent Total Time Spent with Patient: Total time spent is greater than 50% in coordination of care (as documented) at patient's floor/unit and/or counseling patient: Coding Level of Care Code 62348 Subseq Hosp Care Lvl 3 Diagnoses Sepsis A41.9 Sepsis acute organ dysfunction status: unspecified Sepsis type: sepsis due to unspecified organism Hypovolemic shock R57.1 TAB (acute kidney injury) N17.9 Bowel perforation K63.1 Chronic obstructive asthma J44.9 Mixed connective tissue disease M35.1 Elevated troponin R77.8 DVT prophylaxis Z29.9 Acute delirium R41.0 Pulmonary embolism I26.99 Anemia D64.9 (1) Sepsis Sepsis acute organ dysfunction status: unspecified Sepsis type: sepsis due to unspecified organism Qualified Code(s): A41.9 - Sepsis, unspecified organism
[2021-02-03] MEDS ORDERED: MAGNESIUM SULFATE / D5W 1 GM/100 ML BAG IV ONE (07:45)
[2021-02-03] MEDS: HYDROmorphone INJ 0.5 MG/0.5 ML SYR IV PRN ×2 (08:18→12:02)
[2021-02-03] MEDS: FAMOTIDINE 20 MG in SYRINGE 3 ML IV SCH (08:20)
--- NOTE | 2021-02-03 11:34 | Surgery Progress Note ---
Date of Service February 03, 2021 Assessment & Plan (1) SBO (small bowel obstruction): Plan: pt is a 70 year-old female who is post-op p Exploratory Laparotomy with Lysis of Adhesion, POD 5 stable, plan, continue treatment, will F/U Admission and Anticipated Discharge Date Admission Date: January 29, 2021 Supervising Physician Co-Signing Physician Notes Attending Attestation- Chart reviewed, care plan d/w MARLI Islas. I agree w/ the huston components of her documentation. A/P: 1. shock - resolved; 2nd to #2. 2. SBO with concern for perforation - POD#2 s/p ex lap by Dr Cabrera; ADOLFO performed, bowel was run and no perf seen. 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 3. hypoglycemia - resolved. 4. ATN - supportive care, IVF, serial labs. IMPROVED. Nephrology consult and recs appreciated. 5. MCTD - cont stress-dose steroids; cont holding plaquenil. Agree with current taper/wean of steroids. BPs remain adequate. 6. COPD - stable. 7. FEN - PICC + TPN is being planned by primary attending/gen surg. Defer management to them. Colt Holt MD Subjective this pt has delirium likely related to hospital stay, was bleeding from picc line site this am, has remained confused all day, needing haldol ativan and seroquel, still on TPN and at times needing soft limb restraints. F/U p Exploratory Laparotomy with Lysis of Adhesion, POD 5 pt is stable, no fever, passed some gas per-nurse, Physical Exam Constitutional: awake Eyes: PERRL, conjunctivae normal, anicteric sclerae Neck: trachea midline, no thyromegaly Respiratory: normal respiratory effort, lungs clear to auscultation Cardiovascular: RRR, no murmur, no edema Gastrointestinal (Abdomen): soft, NT, ND, the incision heals well, no redness, Results & Data ([facility]) Vital Signs (Past 12 Hours) Vital Signs Temp Pulse Resp BP Pulse Ox 02/03/21 03:56 36.4 C L 83 20 127/87 99 02/03/21 00:06 36.6 C 88 18 138/84 96 Laboratory Results Abnormal lab results 02/02/21 02/03/21 02/03/21 Range/Units 17:06 05:07 05:07 RBC 2.86 L (4.2-5.4) M/uL Hgb 8.6 L (12.0-16.0) g/dL Hct 26.3 L (37-47) % RDW Std Deviation 48.4 H (36.4-46.3) fL Plt Count 111 L (130-400) K/uL MPV 11.3 H (7.4-10.4) fL APTT 82.6 H* (21.0-31.0) Seconds Chloride (98-107) mmol/L Anion Gap (3-11) BUN (7-18) mg/dl BUN/Creatinine Ratio (10-20) POC Glucose 108 H (70-99) mg/dl Calcium (8.5-10.1) mg/dl Magnesium (1.8-2.4) mg/dl 02/03/21 Range/Units 05:07 RBC (4.2-5.4) M/uL Hgb (12.0-16.0) g/dL Hct (37-47) % RDW Std Deviation (36.4-46.3) fL Plt Count (130-400) K/uL MPV (7.4-10.4) fL APTT (21.0-31.0) Seconds Chloride 109 H (98-107) mmol/L Anion Gap 1.0 L (3-11) BUN 31 H (7-18) mg/dl BUN/Creatinine Ratio 40.5 H (10-20) POC Glucose (70-99) mg/dl Calcium 7.4 L (8.5-10.1) mg/dl Magnesium 1.6 L (1.8-2.4) mg/dl
[2021-02-03] MEDS: predniSONE 10 MG TABLET NG SCH (12:03)
[2021-02-03] MEDS ORDERED: SODIUM CHLORIDE 0.9% 250 ML IV PRN ×2 (12:55→17:33)
[2021-02-03 12:59] LABS: Partial Thromboplastin Ratio 2.9
[2021-02-03 13:02] LABS: Partial Thromboplastin Time 76.6 Seconds (21.0-31.0)
[2021-02-03] MEDS ORDERED: CENTRAL PN IV SCH (16:00)
[2021-02-03] MEDS ORDERED: TPN IV SCH (16:00)
--- NOTE | 2021-02-03 17:46 | Surgery Progress Note ---
Date of Service February 03, 2021 Assessment & Plan (1) SBO (small bowel obstruction): Plan: pt is a 70 year-old female who is post-op p Exploratory Laparotomy with Lysis of Adhesion, POD 5 stable, plan, continue treatment, will F/U 02/03/2021 5:43Pm, I informed pt about bleeding from incision site, possible relate to heparin drip, F/U incision site bleeding,H/H stable, no active bleeding now, apply pressure dressing on incision site, hold heparin drip,repeat labs in morning, will F/U Admission and Anticipated Discharge Date Admission Date: January 29, 2021 Supervising Physician Co-Signing Physician Notes Attending Attestation- Chart reviewed, care plan d/w MARLI Islas. I agree w/ the huston components of her documentation. A/P: 1. shock - resolved; 2nd to #2. 2. SBO with concern for perforation - POD#2 s/p ex lap by Dr Cabrera; ADOLFO performed, bowel was run and no perf seen. 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 3. hypoglycemia - resolved. 4. ATN - supportive care, IVF, serial labs. IMPROVED. Nephrology consult and recs appreciated. 5. MCTD - cont stress-dose steroids; cont holding plaquenil. Agree with c urrent taper/wean of steroids. BPs remain adequate. 6. COPD - stable. 7. FEN - PICC + TPN is being planned by primary attending/gen surg. Defer management to them. Colt Holt MD Subjective the pt is much more calm today, she did drop her hgb this am and did have her heparin gtt held, Ct abdomen and pelvis, but could not use contrast due to npo status, when sitting to move to litter for CT blood did leak from abdominal wound, CT not formally read but seems like seroma or hematoma is present, Gen surgery reception manager is notified 02/03/2021 nurse called some blood from incision site, about 5-10 cc, I check pt, no active bleeding on incision now, pt had CT scan I reviewed it, report is pending, possible some hematoma on incision site, Physical Exam Eyes: PERRL, conjunctivae normal, anicteric sclerae Neck: trachea midline, no thyromegaly Respiratory: normal respiratory effort, lungs clear to auscultation Cardiovascular: RRR, no murmur, no edema Gastrointestinal (Abdomen): soft, no active bleeding on incision site, I apply pressure dressing on incision site Neurologic: patellar DTR's 2+ bilat, sensation intact Psychiatric: A+Ox3, euthymic affect Results & Data ([facility]) Vital Signs (Past 12 Hours) Vital Signs Temp Pulse Pulse Resp BP BP Pulse Ox 02/03/21 17:15 36.6 C 107 H 14 121/62 99 02/03/21 16:58 36.6 C 100 H 12 111/66 98 02/03/21 12:00 36.5 C 91 H 16 129/65 100 02/03/21 08:00 36.5 C 90 101 H 17 148/87 H 100 Laboratory Results Abnormal lab results 02/03/21 02/03/21 02/03/21 Range/Units 05:07 05:07 05:07 RBC 2.86 L (4.2-5.4) M/uL Hgb 8.6 L (12.0-16.0) g/dL Hct 26.3 L (37-47) % RDW Std Deviation 48.4 H (36.4-46.3) fL Plt Count 111 L (130-400) K/uL MPV 11.3 H (7.4-10.4) fL APTT 82.6 H* (21.0-31.0) Seconds Chloride 109 H (98-107) mmol/L Anion Gap 1.0 L (3-11) BUN 31 H (7-18) mg/dl BUN/Creatinine Ratio 40.5 H (10-20) POC Glucose (70-99) mg/dl Calcium 7.4 L (8.5-10.1) mg/dl Magnesium 1.6 L (1.8-2.4) mg/dl Crossmatch 02/03/21 02/03/21 02/03/21 Range/Units 11:52 11:52 11:52 RBC (4.2-5.4) M/uL Hgb 7.9 L (12.0-16.0) g/dL Hct (37-47) % RDW Std Deviation (36.4-46.3) fL Plt Count (130-400) K/uL MPV (7.4-10.4) fL APTT 76.6 H* (21.0-31.0) Seconds Chloride (98-107) mmol/L Anion Gap (3-11) BUN (7-18) mg/dl BUN/Creatinine Ratio (10-20) POC Glucose (70-99) mg/dl Calcium (8.5-10.1) mg/dl Magnesium (1.8-2.4) mg/dl Crossmatch See Detail 02/03/21 Range/Units 13:07 RBC (4.2-5.4) M/uL Hgb (12.0-16.0) g/dL Hct (37-47) % RDW Std Deviation (36.4-46.3) fL Plt Count (130-400) K/uL MPV (7.4-10.4) fL APTT (21.0-31.0) Seconds Chloride (98-107) mmol/L Anion Gap (3-11) BUN (7-18) mg/dl BUN/Creatinine Ratio (10-20) POC Glucose 100 H (70-99) mg/dl Calcium (8.5-10.1) mg/dl Magnesium (1.8-2.4) mg/dl Crossmatch
[2021-02-03] MEDS: QUEtiapine FUMARATE 25 MG TABLET PO SCH (19:17)
--- NOTE | 2021-02-03 19:22 | CT Scan Report ---
ABDOMEN AND PELVIS CT WITHOUT CONTRAST CT DOSE: 418.97 mGy.cm HISTORY: Acute anemia status post surgery acute blood drop after surgery TECHNIQUE: Multiaxial CT images of the abdomen and pelvis were performed without contrast. A dose lo wering technique was utilized adhering to the principles of ALARA. COMPARISON STUDY: CT abdomen and pelvis 01/29/2021 FINDINGS: Small pleural effusions with mild dependent bibasilar bibasilar consolidation suggestive of atelectas is. Scattered subtle tree-in-bud nodules of the lung bases. Calcified granuloma of the right lower lo be. Limited exam secondary to positioning and lack of IV contrast. Scattered calcified granulomata of the spleen. Unremarkable pancreas and adrenal glands. Cholecystectomy. Unremarkable liver. Nonobstructing bilateral nephrolithiasis. Contrast noted within the right renal collecting system and urinary bladder. Complex 2.3 cm left renal cyst with layering milk of calcium. 1.3 cm hyperdense les ion of the superior pole left kidney with Houn[place]field of 60 is also suggestive of a complex cyst. Soy ical scarring and parenchymal thinning of the left kidney. Atherosclerosis of the aorta. Moderate gastric wall thickening. Trace abdominal pelvic ascites with diffuse body wall edema. Coloni c diverticulosis. Trace pneumoperitoneum. Postoperative changes of the small bowel. Scattered small b owel air-fluid levels with several loops of small bowel demonstrating mild dilation measuring up to 3 .8 cm. No discrete transition point. Mild hemoperitoneum of the pelvis. Fluid and hemorrhage is noted at the ventral midline incision site. There is a large left rectus alvarez th hematoma measuring 6.2 x 4.1 x 16.6 cm. No acute fracture. Degenerative changes of the spine, pelv is and hips. IMPRESSION: 1. Acute left rectus sheath hematoma measures 6.2 x 4.1 x 16.6 cm. Fluid and hemorrhage is also noted within the ventral midline abdominal wall incision. Mild associated pelvic hemoperitoneum. 2. There is a decreased amount of pneumoperitoneum. 3. Dilated fluid-filled loops of small bowel without discrete transition point are suggestive of post operative ileus versus partial obstruction. Follow-up recommended. 4. Moderate gastric wall thickening is likely secondary to partial distention. A nonspecific gastriti s could appear similarly. 5. Small pleural effusions with subtle bibasilar opacities suggestive of a mild infectious or inflamm atory pneumonitis. ACT 112: Negative or not required by law. The above report was generated using voice recognition software. It may contain grammatical, syntax o r spelling errors. Electronically signed by: Berry Pollock M.D. 02/03/2021 7:20 PM
[2021-02-04 00:41] LABS: Hematocrit (blood only) 34.2 % (37-47); Hemoglobin 11.3 g/dL (12.0-16.0)
[2021-02-04 06:25] LABS: Hematocrit (blood only) 31.1 % (37-47); Hemoglobin 10.4 g/dL (12.0-16.0); Mean Corpuscular Hemoglobin 30.1 pg (25-34); Mean Corpuscular Hgb Conc 33.4 g/dL (32-36); Mean Corpuscular Volume 89.9 fL (80-100); Mean Platelet Volume 11.7 fL (7.4-10.4); Platelet Count 105 K/uL (130-400); RDW Coefficient of Variation 14.6 % (11.5-14.5); RDW Standard Deviation 48.5 fL (36.4-46.3); Red Blood Count 3.46 M/uL (4.2-5.4); White Blood Count 8.48 K/uL (4.8-10.8)
[2021-02-04 06:45] LABS: BUN Creatinine Ratio 41.9 (10-20); Calcium 7.8 mg/dl (8.5-10.1); Creatinine Clr Calc Pharmacy 46.6 ml/min; Est GFR (African American) 79.9 ml/min; Est GFR (Non-African American) 68.9 ml/min; Magnesium 1.8 mg/dl (1.8-2.4); Potassium 4.9 mmol/L (3.5-5.1)
[2021-02-04 06:46] LABS: Phosphorus 3.1 mg/dl (2.5-4.9)
[2021-02-04] MEDS: FAMOTIDINE 20 MG in SYRINGE 3 ML IV SCH (09:40)
[2021-02-04] MEDS: predniSONE 10 MG TABLET NG SCH (09:41)
[2021-02-04] MEDS: HEPARIN SODIUM/DEXTROSE 25,000 UNITS/500 ML BAG IV SCH ×2 (09:41→16:10)
--- NOTE | 2021-02-04 11:57 | Surgery Progress Note ---
Date of Service February 04, 2021 Assessment & Plan (1) SBO (small bowel obstruction): Plan: pt is a 70 year-old female who is post-op p Exploratory Laparotomy with Lysis of Adhesion, POD 5 stable, plan, continue treatment, will F/U 02/03/2021 5:43Pm, I informed pt about bleeding from incision site, possible relate to heparin drip, F/U incision site bleeding,H/H stable, no active bleeding now, apply pressure dressing on incision site, hold heparin drip,repeat labs in morning, will F/U 02/04/2021 12PM rectus sheath hematoma, stable, H/H stable, continue conservative treatment, may start lovenox for PE tomorrow, clear diet, will F/u Admission and Anticipated Discharge Date Admission Date: January 29, 2021 Supervising Physician Co-Signing Physician Notes Attending Attestation- Chart reviewed, care plan d/w MARLI Islas. I agree w/ the huston components of her documentation. A/P: 1. shock - resolved; 2nd to #2. 2. SBO with concern for perforation - POD#2 s/p ex lap by Dr Cabrera; ADOLFO performed, bowel was run and no perf seen. 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 3. hypoglycemia - resolved. 4. ATN - supportive care, IVF, serial labs. IMPROVED. Nephrology consult and recs appreciated. 5. MCTD - cont stress-dose steroids; cont holding plaquenil. Agree with current taper/wean of steroids. BPs remain adequate. 6. COPD - stable. 7. FEN - PICC + TPN is being planned by primary attending/gen surg. Defer management to them. Colt Holt MD Subjective the pt is much more calm today, she did drop her hgb this am and did have her heparin gtt held, Ct abdomen and pelvis, but could not use contrast due to npo status, when sitting to move to litter for CT blood did leak from abdominal wound, CT not formally read but seems like seroma or hematoma is present, Gen surgery cardiac surgeon is notified 02/03/2021 nurse called some blood from incision site, about 5-10 cc, I check pt, no active bleeding on incision now, pt had CT scan I reviewed it, report is pending, possible some hematoma on incision site, 02/04/2021 11:56AM pt is stable no abdominal pain, pass gas , no BM yet, Ct scan reviewed with pt, -IMPRESSION: 1. Acute left rectus sheath hematoma measures 6.2 x 4.1 x 16.6 cm. Fluid and hemorrhage is also noted within the ventral midline abdominal wall incision. Mild associated pelvic hemoperitoneum. Physical Exam Eyes: PERRL, conjunctivae normal, anicteric sclerae Neck: trachea midline, no thyromegaly Respiratory: normal respiratory effort, lungs clear to auscultation Cardiovascular: RRR, no murmur, no edema Gastrointestinal (Abdomen): soft, NT, ND, incision intact, no redness, BS + Neurologic: patellar DTR's 2+ bilat, sensation intact Psychiatric: A+Ox3, euthymic affect Results & Data ([facility]) Vital Signs (Past 12 Hours) Vital Signs Temp Pulse Pulse Resp BP BP Pulse Ox 02/04/21 08:05 36.7 C 02/04/21 08:00 112 H 02/04/21 07:50 93 H 18 142/81 H 97 02/04/21 05:00 36.6 C 90 18 133/76 98 02/04/21 01:51 36.8 C 99 H 20 131/84 99 Laboratory Results Abnormal lab results 02/03/21 02/03/21 02/03/21 Range/Units 11:52 11:52 11:52 RBC (4.2-5.4) M/uL Hgb 7.9 L (12.0-16.0) g/dL Hct (37-47) % RDW Std Deviation (36.4-46.3) fL RDW Coeff of Bo (11.5-14.5) % Plt Count (130-400) K/uL MPV (7.4-10.4) fL APTT 76.6 H* (21.0-31.0) Seconds Chloride (98-107) mmol/L BUN (7-18) mg/dl BUN/Creatinine Ratio (10-20) Glucose (70-99) mg/dl POC Glucose (70-99) mg/dl Calcium (8.5-10.1) mg/dl Crossmatch See Detail 02/03/21 02/03/21 02/04/21 Range/Units 13:07 23:40 05:36 RBC (4.2-5.4) M/uL Hgb 11.3 L D (12.0-16.0) g/dL Hct 34.2 L (37-47) % RDW Std Deviation (36.4-46.3) fL RDW Coeff of Bo (11.5-14.5) % Plt Count (130-400) K/uL MPV (7.4-10.4) fL APTT (21.0-31.0) Seconds Chloride (98-107) mmol/L BUN (7-18) mg/dl BUN/Creatinine Ratio (10-20) Glucose (70-99) mg/dl POC Glucose 100 H 103 H (70-99) mg/dl Calcium (8.5-10.1) mg/dl Crossmatch 02/04/21 02/04/21 Range/Units 06:09 06:09 RBC 3.46 L (4.2-5.4) M/uL Hgb 10.4 L (12.0-16.0) g/dL Hct 31.1 L (37-47) % RDW Std Deviation 48.5 H (36.4-46.3) fL RDW Coeff of Bo 14.6 H (11.5-14.5) % Plt Count 105 L (130-400) K/uL MPV 11.7 H (7.4-10.4) fL APTT (21.0-31.0) Seconds Chloride 109 H (98-107) mmol/L BUN 36 H (7-18) mg/dl BUN/Creatinine Ratio 41.9 H (10-20) Glucose 100 H (70-99) mg/dl POC Glucose (70-99) mg/dl Calcium 7.8 L (8.5-10.1) mg/dl Crossmatch Diagnostic Findings ABDOMEN AND PELVIS CT WITHOUT CONTRAST CT DOSE: 418.97 mGy.cm HISTORY: Acute anemia status post surgery acute blood drop after surgery TECHNIQUE: Multiaxial CT images of the abdomen and pelvis were performed without contrast. A dose lowering technique was utilized adhering to the principles of ALARA. COMPARISON STUDY: CT abdomen and pelvis 01/29/2021 FINDINGS: Small pleural effusions with mild dependent bibasilar bibasilar consolidation suggestive of atelectasis. Scattered subtle tree-in-bud nodules of the lung bases. Calcified granuloma of the right lower lobe. Limited exam secondary to positioning and lack of IV contrast. Scattered calcified granulomata of the spleen. Unremarkable pancreas and adrenal glands. Cholecystectomy. Unremarkable liver. Nonobstructing bilateral nephrolithiasis. Contrast noted within the right renal collecting system and urinary bladder. Complex 2.3 cm left renal cyst with layering milk of calcium. 1.3 cm hyperdense lesion of the superior pole left kidney with Hounsfield of 60 is also suggestive of a complex cyst. Cortical scarring and parenchymal thinning of the left kidney. Atherosclerosis of the aorta. Moderate gastric wall thickening. Trace abdominal pelvic ascites with diffuse body wall edema. Colonic diverticulosis. Trace pneumoperitoneum. Postoperative changes of the small bowel. Scattered small bowel air-fluid levels with several loops of small bowel demonstrating mild dilation measuring up to 3.8 cm. No discrete transition point. Mild hemoperitoneum of the pelvis. Fluid and hemorrhage is noted at the ventral midline incision site. There is a large left rectus sheath hematoma measuring 6.2 x 4.1 x 16.6 cm. No acute fracture. Degenerative changes of the spine, pelvis and hips. IMPRESSION: 1. Acute left rectus sheath hematoma measures 6.2 x 4.1 x 16.6 cm. Fluid and hemorrhage is also noted within the ventral midline abdominal wall incision. Mild associated pelvic hemoperitoneum. 2. There is a decreased amount of pneumoperitoneum. 3. Dilated fluid-filled loops of small bowel without discrete transition point are suggestive of postoperative ileus versus partial obstruction. Follow-up recommended. 4. Moderate gastric wall thickening is likely secondary to partial distention. A nonspecific gastritis could appear similarly. 5. Small pleural effusions with subtle bibasilar opacities suggestive of a mild infectious or inflammatory pneumonitis. ACT 112: Negative or not required by law.
--- NOTE | 2021-02-04 14:53 | Hospitalist Progress Note ---
Date of Service February 04, 2021 Assessment & Plan (1) Anemia: Plan: acute blood loss anemia with circulating anticoagulant in post operative setting , status post 2 units prbc, CT scan abdomen pelvis 02/03/2021 shows acute left rectus sheath hematoma measures 6.2 x 4.1 x 16.6 cm. Fluid and hemorrhage is also noted within the ventral midline abdominal wall incision. Mild associated pelvic hemoperitoneum. Initially stopping heparin in the face of PE patient's hemoglobin stable status post transfusion we will start heparin drip once again without bolus. If intolerant of the heparin vena cava filter may be considered (2) Acute delirium: Plan: pt has developed delerium in the post operative setting/ ICU delerium, improved once had a better night sleep, seems to have paradoxical affect from ativan, using haldol and added some seroquel hs She does remain with some confusion although much better and is oriented x2, will send urine culture as initially was covered with antibiotics for surgery since been DC'd (3) Pulmonary embolism: Plan: She developed SVT was found to have pulmonary embolism 02/01 started on heparin drip that of some bleeding from her PICC line site. And additionally anemia which appears to be acute concern for blood loss anemia with a large rectus sheath hematoma. Restart heparin low-dose no bolus in the afternoon of 02/04/2021 (4) Sepsis: Plan: Admitted 01/29 with hypotensive with BP 78/54 with Lactic 3.5, BUN/Cr 59/3.6 (b aseline Cr ~1) WBC 14.4k concerns for bowel perforation on imaging following n/v with reported 4 garbage cans full of vomit. CTAP with excessive pneumatosis of multiple small bowel loops with small amount of associated pneumoperitoneum. Although pneumatosis is nonspecific, the findings are highly suggestive of small bowel ischemia with bowel perforation. Surgical consultation is recommended. Moderately dilated fluid-filled proximal to mid small bowel favors an underlying small bowel obstruction although a discrete transition point is not identified. Findings discussed with Dr. Cochran at time of dictation. s/p Exploratory laparotomy with lysis of adhesions 01/29/[address] Cabrera Sepsis suspected 2nd to Hypovolemic Shock Patient remains on TPN starting some ice chips and sips in the afternoon 02/04 Dr. Cabrera to reassess on 02/05 (5) Elevated troponin: Plan: suspect 2nd to demand/hypovolemic shock as above associated with sepsis No CP reported EKG stable from prior Dec 2019, PACs no longer present Trending down --.> 2nd to demand from hypovolemic shock No CP/SOB reported Continued monitoring on telemetry (6) Hypovolemic shock: Plan: resolved (7) TAB (acute kidney injury): Plan: resolved (8) Bowel perforation: Plan: concerns for as above given imaging with description of pneumatosis of the small bowel with small amount of pneumoperitoneum. Into the OR but no perforation seen (9) Chronic obstructive asthma: Plan: continue usual inhaler incentive spirometer no sob/wheezing on exam supplemental O2 as above and encouraging incentive spirometery (10) Mixed connective tissue disease: Plan: plaquenil on hold Follows with arlyn Stress dose steroids with hydrocortisone 50mg IV BID for now then transition back to usual 10mg prednisone daily (11) DVT prophylaxis: Plan: Heparin therapeutic infusion has been held, resuming heparin drip and add scd Admission and Anticipated Discharge Date Admission Date: January 29, 2021 Subjective She still slightly confused but much more awake and alert. She is asking to leave the hospital. Explained why she could not do this she seemed comfortable with this. She has had no chest pain pressure shortness of breath she still has some abdominal pain there is no significant swelling seen in her abdomen but is tender to examination. Yesterday confirmed a large rectus sheath hematoma Review of Systems Review of Systems: Mild distress and fatigue no headache, no visual changes no speech or swallowing issues no chest pain, pressure or palpitations no shortness of breath, cough or wheezes Some mild left-sided abdominal pain no dysuria, hematuria or frequency no focal joint pain or swelling no back pain, CVA tenderness or radicular pain Initially some bleeding from the surgical wound now appears to be intact no focal signs of weakness or numbness or altered sensation still some remnants of delirium Physical Exam Physical Exam: The patient appeared much older than stated age Vital signs as documented. Head exam is normocephalic atraumatic Neck is without JVD, thyromegaly, or carotid bruits. Lungs are clear to auscultation, diminished at the bases Cardiac exam, Rhythm is regular.. Systolic ejection murmur Abdominal exam reveals normal bowel sounds, soft some mild fullness and tenderness to the left side of the midline Extremities are nonedematous and both pedal pulses are present Neurologic exam is alert and oriented x2, no focal loss of strength or sensation Skin is without bruises or rashes there was some bleeding from the surgical site this is since been redressed Psychologically is with concern for hospital delirium likely from sleep deprivation and medication Results & Data Results & Data ([facility]) Vital Signs (Past 12 Hours) Vital Signs Temp Pulse Pulse Resp BP BP Pulse Ox 02/04/21 08:05 98.1 F 02/04/21 08:00 112 H 02/04/21 07:50 93 H 18 142/81 H 97 02/04/21 05:00 97.9 F 90 18 133/76 98 PG Care Time/CCT Total # of Minutes Spent Total Time Spent with Patient: Total time spent is greater than 50% in coordination of care (as documented) at patient's floor/unit and/or counseling patient: Coding Level of Care Code 08465 Subseq Hosp Care Lvl 3 Diagnoses Anemia D64.9 Acute delirium R41.0 Pulmonary embolism I26.99 Sepsis A41.9 Sepsis acute organ dysfunction status: unspecified Sepsis type: sepsis due to unspecified organism Elevated troponin R77.8 Hypovolemic shock R57.1 TAB (acute kidney injury) N17.9 Bowel perforation K63.1 Chronic obstructive asthma J44.9 Mixed connective tissue disease M35.1 DVT prophylaxis Z29.9 (1) Sepsis Sepsis acute organ dysfunction status: unspecified Sepsis type: sepsis due to unspecified organism Qualified Code(s): A41.9 - Sepsis, unspecified organism
[2021-02-04 15:49] LABS: Partial Thromboplastin Ratio 1.5; Partial Thromboplastin Time 40.2 Seconds (21.0-31.0)
[2021-02-04] MEDS ORDERED: CENTRAL PN IV SCH (16:00)
[2021-02-04] MEDS ORDERED: TPN IV SCH (16:00)
[2021-02-04] MEDS: QUEtiapine FUMARATE 25 MG TABLET PO SCH (21:59)
[2021-02-04 22:15] LABS: Partial Thromboplastin Ratio 1.9
[2021-02-05] MEDS: HYDROmorphone INJ 0.5 MG/0.5 ML SYR IV PRN ×3 (05:21→20:56)
[2021-02-05 07:05] LABS: Partial Thromboplastin Ratio 1.9
[2021-02-05 08:22] LABS: BUN Creatinine Ratio 40.3 (10-20); Creatinine Clr Calc Pharmacy 42.6 ml/min; Est GFR (African American) 71.7 ml/min; Est GFR (Non-African American) 61.9 ml/min; Magnesium 1.7 mg/dl (1.8-2.4); Potassium 4.5 mmol/L (3.5-5.1)
[2021-02-05 08:23] LABS: Phosphorus 3.5 mg/dl (2.5-4.9)
--- NOTE | 2021-02-05 08:33 | Surgery Progress Note ---
Date of Service February 05, 2021 Assessment & Plan (1) SBO (small bowel obstruction): Plan: Patient also with history of PE History of rectus sheath hematoma requiring transfusion Her vital signs appear to be stable Her abdomen is soft she does have some tenderness over the left rectus muscle involving the hematoma Patient currently is on TPN and IV heparin We will begin clear liquids, advancing diet as tolerated She will need physical therapy She will likely require rehab To [facility] floor when okay with medical team Admission and Anticipated Discharge Date Admission Date: January 29, 2021 Results & Data ([facility]) Vital Signs (Past 12 Hours) Vital Signs Temp Pulse Pulse Resp BP Pulse Ox 02/05/21 07:30 36.7 C 91 H 18 121/72 92 02/05/21 04:12 37.2 C 97 H 18 122/77 92 02/05/21 00:08 89 02/04/21 23:57 36.7 C 89 18 125/77 94 PG Care Time/CCT Total # of Minutes Spent Total Time Spent with Patient: Total time spent is greater than 50% in coordination of care (as documented) at patient's floor/unit and/or counseling patient: Coding Level of Care Code None Diagnoses SBO (small bowel obstruction) K56.609
[2021-02-05] MEDS: predniSONE 10 MG TABLET NG SCH (08:41)
[2021-02-05] MEDS: FAMOTIDINE 20 MG in SYRINGE 3 ML IV SCH (08:44)
[2021-02-05 09:12] LABS: Hemoglobin 9.8 g/dL (12.0-16.0); Mean Corpuscular Hemoglobin 30.2 pg (25-34); Mean Corpuscular Hgb Conc 32.7 g/dL (32-36); Mean Corpuscular Volume 92.3 fL (80-100); Platelet Count 108 K/uL (130-400); RDW Coefficient of Variation 14.7 % (11.5-14.5); RDW Standard Deviation 49.7 fL (36.4-46.3); Red Blood Count 3.25 M/uL (4.2-5.4); White Blood Count 10.68 K/uL (4.8-10.8)
[2021-02-05 09:13] LABS: Basophils # (auto) 0.01 K/uL (0-0.2); Basophils % (auto) 0.1 %; Eosinophils # (auto) 0.41 K/uL (0-0.5); Eosinophils % (auto) 3.8 %; Immature Granulocytes # (auto) 0.01 K/uL (0.00-0.02); Immature Granulocytes % (auto) 0.1 %; Lymphocytes # (auto) 1.86 K/uL (1.2-3.4); Lymphocytes % (auto) 17.4 %; Monocytes # (auto) 0.92 K/uL (0.11-0.59); Monocytes % (auto) 8.6 %; Neutrophils # (auto) 7.47 K/uL (1.4-6.5); Platelet Estimate Decreased (Normal)
--- NOTE | 2021-02-05 14:55 | Hospitalist Progress Note ---
Date of Service February 05, 2021 Assessment & Plan (1) Anemia: Plan: Ashia is a 70-year-old female with a past medical history of restrictive lung disease who presented with tachycardia and hypotension with concern for bowel perforation and who was admitted for concern of potential bowel perforation and he was noted to have pulmonary embolism on 02/01. Acute blood loss anemia 2/2 postsurgical losses with anticoagulation Received 2 units of packed red blood cells with appropriate rise CT A/P 02/03/2021 acute left rectus sheath hematoma measures 6.2 x 4.1 x 16.6 cm. Fluid and hemorrhage is also noted within the ventral midline abdominal wall incision. Mild associated pelvic hemoperitoneum. -Heparin initially stopped in the setting of anemia, restarted when Hgb stable. If intolerant of the heparin vena cava filter may be considered Continue routine H&H If remains stable may consider candidate for 3 months of DOAC, would favor apixaban for lower bleeding risk/twice daily kinetics (2) Acute delirium: Plan: Pt has developed delerium in the post operative setting/ ICU delerium, improved once had a better night sleep, seems to have paradoxical affect from ativan, using haldol and added some seroquel hs -Patient somnolent today but arouses easily and alert and oriented x3 on exam (3) Pulmonary embolism: Plan: 02/01 found to have PE Heparin GTT started, stopped for anemia as above, restarted 02/04/2021 Hemoglobin 02/05 9.8 from 10.4. Trend daily, avoid iatrogenic anemiaconsider DOAC if remaining stable as noted again. Would favor apixaban over rivaroxaban (4) Sepsis: Plan: -Admitted 01/29 with hypotensive with BP 78/54 with Lactic 3.5, BUN/Cr 59/3.6 (baseline Cr ~1) WBC 14.4k -concerns for bowel perforation on imaging following n/v with reported 4 garbage cans full of vomit. -CTAP with excessive pneumatosis of multiple small bowel loops with small amount of associated pneumoperitoneum. Although pneumatosis is nonspecific, the findings are highly suggestive of small bowel ischemia with bowel perforation. Surgical consultation was obtained - - s/p Exploratory laparotomy with lysis of adhesions 01/29/[address] Cabrera - Sepsis suspected 2nd to Hypovolemic Shock -Improving, diet per surgery. Progressing, remains on TPN (5) Elevated troponin: Plan: suspect 2nd to demand/hypovolemic shock as above associated with sepsis No CP reported EKG stable from prior Dec 2019, PACs no longer present Trending down --.> 2nd to demand from hypovolemic shock No CP/SOB reported Continued monitoring on telemetry (6) Hypovolemic shock: Plan: resolved (7) TAB (acute kidney injury): Plan: resolved (8) Bowel perforation: Plan: concerns for as above given imaging with description of pneumatosis of the small bowel with small amount of pneumoperitoneum. Into the OR but no perforation seen (9) Chronic obstructive asthma: Plan: continue home inhaler regimen incentive spirometer no sob/wheezing on exam supplemental O2 as above and encouraging incentive spirometery (10) Mixed connective tissue disease: Plan: plaquenil on hold Follows with Dr. [facility] Initially on stress dose hydrocortisone 50 mg IV twice daily, transitioned back to prednisone 10 mg daily home dosing (11) DVT prophylaxis: Plan: See heparin GTT notes above Admission and Anticipated Discharge Date Admission Date: January 29, 2021 Subjective Seen at bedside this morning, awake, alert but reports she is a little bit sleepy from her pain medicine and gets "a little out of it ". Denies difficulty breathing. Has seen the surgeon this morning, is aware that her diet will be slowly advanced and has no questions or concerns at time of visit. She endorses gas/flatus but no bowel movement. Denies bleeding, denies syncope/presyncope. Endorses some shortness of breath, is aware that she is on the heparin GTT. No questions at time of assessment. Review of Systems Review of Systems: 10 point review of systems negative except as noted in HPI Physical Exam Physical Exam: General: A&Ox3, somnolent but arouses easily. NAD. Cooperative. HEENT: Atraumatic, normocephalic. Visual acuity and hearing grossly intact. Pulm: CTAB A&P. -wheezes, -rales, -rhonchi. Symmetrical chest rise. No increase work of breathing. No respiratory distress. Cardiac: RRR, -mrg. Radial pulses intact and symmetrical. Abdominal: Postsurgical abdominal dressing in place, C/D/I. Nontender to light palpation. Abdomen soft, without rebound tenderness, without guarding. Bowel sounds diminished Results & Data Results & Data ([place]) Vital Signs (Past 12 Hours) Vital Signs Temp Pulse Resp BP Pulse Ox 02/05/21 11:00 36.6 C 90 18 110/70 92 02/05/21 07:30 36.7 C 91 H 18 121/72 92 02/05/21 04:12 37.2 C 97 H 18 122/77 92 PG Care Time/CCT Total # of Minutes Spent Total Time Spent with Patient: Total time spent is greater than 50% in coordination of care (as documented) at patient's floor/unit and/or counseling patient: Coding Level of Care Code 73721 Subseq Hosp Care Lvl 3 Diagnoses Anemia D64.9 Acute delirium R41.0 Pulmonary embolism I26.99 Sepsis A41.9 Sepsis acute organ dysfunction status: unspecified Sepsis type: sepsis due to unspecified organism Elevated troponin R77.8 Hypovolemic shock R57.1 TAB (acute kidney injury) N17.9 Bowel perforation K63.1 Chronic obstructive asthma J44.9 Mixed connective tissue disease M35.1 DVT prophylaxis Z29.9 (1) Sepsis Sepsis acute organ dysfunction status: unspecified Sepsis type: sepsis due to unspecified organism Qualified Code(s): A41.9 - Sepsis, unspecified organism
[2021-02-05] MEDS: HEPARIN SODIUM/DEXTROSE 25,000 UNITS/500 ML BAG IV SCH (15:25)
[2021-02-05] MEDS ORDERED: CENTRAL PN IV SCH (16:00)
[2021-02-05] MEDS ORDERED: TPN IV SCH (16:00)
[2021-02-05] MEDS: QUEtiapine FUMARATE 25 MG TABLET PO SCH (20:52)
[2021-02-05] MEDS: HALOPERIDOL LACTATE 5 MG/ML 1 ML VIAL IV PRN (23:27)
[2021-02-05] MEDS ORDERED: ACETAMINOPHEN 325 MG TAB PO PRN (23:33)
[2021-02-05] MEDS: LORazepam 0.5 MG/1 ML VIAL IV PRN (23:48)
[2021-02-05] MEDS ORDERED: ACETAMINOPHEN 1000 MG/100 ML IV IV ONE (23:54)
[2021-02-06] MEDS ORDERED: HYDROCODONE/ACETAMOPHEN 5/325MG TAB PO PRN ×2 (05:21)
[2021-02-06 07:05] LABS: Basophils # (auto) 0.01 K/uL (0-0.2); Basophils % (auto) 0.1 %; Eosinophils # (auto) 0.32 K/uL (0-0.5); Eosinophils % (auto) 3.2 %; Hematocrit (blood only) 26.3 % (37-47); Hemoglobin 8.7 g/dL (12.0-16.0); Immature Granulocytes # (auto) 0.02 K/uL (0.00-0.02); Immature Granulocytes % (auto) 0.2 %; Lymphocytes # (auto) 1.57 K/uL (1.2-3.4); Lymphocytes % (auto) 15.7 %; Mean Corpuscular Hemoglobin 30.2 pg (25-34); Mean Corpuscular Hgb Conc 33.1 g/dL (32-36); Mean Corpuscular Volume 91.3 fL (80-100); Mean Platelet Volume 11.8 fL (7.4-10.4); Monocytes # (auto) 0.92 K/uL (0.11-0.59); Monocytes % (auto) 9.2 %; Neutrophils # (auto) 7.19 K/uL (1.4-6.5); Neutrophils % (auto) 71.6 %; Platelet Count 117 K/uL (130-400); RDW Coefficient of Variation 14.9 % (11.5-14.5); RDW Standard Deviation 50.3 fL (36.4-46.3); Red Blood Count 2.88 M/uL (4.2-5.4); White Blood Count 10.03 K/uL (4.8-10.8)
[2021-02-06 07:21] LABS: BUN Creatinine Ratio 43.1 (10-20); Calcium 7.8 mg/dl (8.5-10.1); Creatinine Clr Calc Pharmacy 38.9 ml/min; Est GFR (Non-African American) 56.1 ml/min; Magnesium 1.9 mg/dl (1.8-2.4); Potassium 4.4 mmol/L (3.5-5.1)
[2021-02-06 07:23] LABS: Phosphorus 4.5 mg/dl (2.5-4.9)
[2021-02-06 07:27] LABS: Partial Thromboplastin Time 52.4 Seconds (21.0-31.0)
[2021-02-06] MEDS: FAMOTIDINE 20 MG in SYRINGE 3 ML IV SCH (08:30)
[2021-02-06] MEDS ORDERED: SODIUM CHLORIDE 0.9% 1000ML 500 ML IV ONE (08:53)
--- NOTE | 2021-02-06 09:15 | Hospitalist Progress Note ---
Date of Service February 06, 2021 Assessment & Plan (1) Anemia: Plan: Ashia is a 70-year-old female with a past medical history of restrictive lung disease who presented with tachycardia and hypotension with concern for bowel perforation and who was admitted for concern of potential bowel perforation and he was noted to have pulmonary embolism on 02/01. Acute blood loss anemia 2/2 postsurgical losses with anticoagulation Received 2 units of packed red blood cells with appropriate rise CT A/P 02/03/2021 acute left rectus sheath hematoma measures 6.2 x 4.1 x 16.6 cm. Fluid and hemorrhage is also noted within the ventral midline abdominal wall incision. Mild associated pelvic hemoperitoneum. -Heparin initially stopped in the setting of anemia, restarted when hemoglobin stabilized 02/06 hemoglobin continued to downtrend 9.8->8.7 with BP 103/53 and uptrending tachycardic. Discussed with surgery. Concern for continued bleeding, heparin held. Hemoglobin again uptrending? Daily variance, repeat CBC pending. Hematology consulted for ongoing anticoagulation recommendations. On clinical exam hematoma soft, nontender, does not appear clinically worsened. (2) Acute delirium: Plan: Pt has developed delerium in the post operative setting/ ICU delirium, improved once had a better night sleep, seems to have paradoxical affect from ativan, using haldol and added some seroquel hs -Patient somnolent today but arouses easily and alert and oriented x3 on exam Delirium overnight, temperature of 38. No obvious infectious source, no leukocytosis, chest x-ray without consolidation, UA not infected appearing No fevers throughout the day (3) Pulmonary embolism: Plan: 02/01 found to have PE Heparin GTT started, stopped for anemia as above, restarted 02/04/2021 Hemoglobin intermittently downtrending Heparin held, see above (4) Sepsis: Plan: -Admitted 01/29 with hypotensive with BP 78/54 with Lactic 3.5, BUN/Cr 59/3.6 (baseline Cr ~1) WBC 14.4k -concerns for bowel perforation on imaging following n/v with reported 4 garbage cans full of vomit. -CTAP with excessive pneumatosis of multiple small bowel loops with small amount of associated pneumoperitoneum. Although pneumatosis is nonspecific, the findings are highly suggestive of small bowel ischemia with bowel perforation. Surgical consultation was obtained - - s/p Exploratory laparotomy with lysis of adhesions 01/29/[address] Cabrera - Sepsis suspected 2nd to Hypovolemic Shock -Improving, diet per surgery. Progressing, remains on TPN (5) Elevated troponin: Plan: suspect 2nd to demand/hypovolemic shock as above associated with sepsis No CP reported EKG stable from prior Dec 2019, PACs no longer present Trending down --.> 2nd to demand from hypovolemic shock No CP/SOB reported Continued monitoring on telemetry (6) Hypovolemic shock: Plan: resolved (7) TAB (acute kidney injury): Plan: resolved (8) Bowel perforation: Plan: concerns for as above given imaging with description of pneumatosis of the small bowel with small amount of pneumoperitoneum. Into the OR but no perforation seen (9) Chronic obstructive asthma: Plan: continue home inhaler regimen incentive spirometer no sob/wheezing on exam supplemental O2 as above and encouraging incentive spirometery (10) Mixed connective tissue disease: Plan: plaquenil on hold Follows with Dr. [facility] Initially on stress dose hydrocortisone 50 mg IV twice daily, transitioned back to prednisone 10 mg daily home dosing (11) DVT prophylaxis: Plan: See heparin GTT notes above Admission and Anticipated Discharge Date Admission Date: January 29, 2021 Subjective Patient appears somnolent, patient received Haldol overnight for delirium/agitation with residual somnolence this morning. Awakens, memory is poor. Additional subjective limited by somnolence. No respiratory depression Review of Systems Review of Systems: Limited by somnolence, grossly denies symptoms this morning including lightheadedness, dizziness, syncope, presyncope, shortness of breath, dysuria. Endorses fatigue. Physical Exam Physical Exam: General: A&Ox3, somnolent but arouses easily. NAD. Cooperative. HEENT: Atraumatic, normocephalic. Visual acuity and hearing grossly intact. Pulm: CTAB A&P. -wheezes, -rales, -rhonchi. Symmetrical chest rise. No increase work of breathing. No respiratory distress. Cardiac: RRR, -mrg. Radial pulses intact and symmetrical. Abdominal: Postsurgical abdominal dressing in place, C/D/I. Left rectus, soft, nontender to light palpation. Abdomen soft, without rebound tenderness, without guarding. Bowel sounds diminished Results & Data Results & [facility] ([facility]) Vital Signs (Past 12 Hours) Vital Signs Temp Pulse Resp BP Pulse Ox 02/06/21 07:34 36.7 C 105 H 19 103/53 L 93 02/06/21 06:13 37.1 C 117 H 16 102/59 L 91 02/05/21 23:32 38 C H 136 H 20 105/65 97 PG Care Time/CCT Total # of Minutes Spent Total Time Spent with Patient: Total time spent is greater than 50% in coordination of care (as documented) at patient's floor/unit and/or counseling patient: Coding Level of Care Code 96207 Subseq Hosp Care Lvl 3 Diagnoses Anemia D64.9 Acute delirium R41.0 Pulmonary embolism I26.99 Sepsis A41.9 Sepsis acute organ dysfunction status: unspecified Sepsis type: sepsis due to unspecified organism Elevated troponin R77.8 Hypovolemic shock R57.1 TAB (acute kidney injury) N17.9 Bowel perforation K63.1 Chronic obstructive asthma J44.9 Mixed connective tissue disease M35.1 DVT prophylaxis Z29.9 (1) Sepsis Sepsis acute organ dysfunction status: unspecified Sepsis type: sepsis due to unspecified organism Qualified Code(s): A41.9 - Sepsis, unspecified organism
--- NOTE | 2021-02-06 09:21 | Surgery Progress Note ---
Date of Service February 06, 2021 Assessment & Plan (1) SBO (small bowel obstruction): Plan: Patient with history of PE and rectus sheath hematoma T-max last night 38 Patient mildly tachycardic Currently receiving some saline, also has been on TPN Her hemoglobin did show some drop so her heparin has been stopped We are considering a filter as she has not tolerated the anticoagulant She has been confused requiring some sedation Her abdomen is soft and her extremities are very warm indicating adequate perfusion It does not appear the hematoma has enlarged, her incision appears to be stable without evidence of infection We will check a portable chest x-ray and also urine Medical team is also evaluating the patient Admission and Anticipated Discharge Date Admission Date: January 29, 2021 Results & Data ([facility]) Vital Signs (Past 12 Hours) Vital Signs Temp Pulse Resp BP Pulse Ox 02/06/21 07:34 36.7 C 105 H 19 103/53 L 93 02/06/21 06:13 37.1 C 117 H 16 102/59 L 91 02/05/21 23:32 38 C H 136 H 20 105/65 97 PG Care Time/CCT Total # of Minutes Spent Total Time Spent with Patient: Total time spent is greater than 50% in coordination of care (as documented) at patient's floor/unit and/or counseling patient: Coding Level of Care Code None Diagnoses SBO (small bowel obstruction) K56.609
--- NOTE | 2021-02-06 09:34 | XRay Report ---
SINGLE VIEW CHEST CLINICAL HISTORY: Dyspnea. FINDINGS: An AP, portable, upright chest radiograph is compared to study dated 01/29/2021 and correlat ed with chest CT dated 02/01/2021. A left PICC line has been placed. Curvature at the tip suggests jaime t this extends into the azygos vein. There are calcified mediastinal lymph nodes. The heart is mildly enlarged noting atherosclerotic calcification of the thoracic aorta. Emphysema and chronic interstit ial thickening is similar to previous. There are scattered calcified granulomas. There is no airspace consolidation typical for pneumonia or large pleural effusion. No pneumothorax is seen. The skeletal structures are osteopenic. The bony thorax is grossly intact. Cholecystectomy clips are seen in the right upper quadrant. IMPRESSION: 1. Mild cardiomegaly and emphysema with no acute cardiopulmonary abnormality identified. 2. A left PICC line has been placed. Mild curvature at the tip of the catheter suggests that this ext ends into the azygos vein. ACT 112: Negative or not required by law. Electronically signed by: Quinton Garcia M.D. 02/06/2021 9:32 AM
[2021-02-06] MEDS: predniSONE 10 MG TABLET NG SCH (09:52)
[2021-02-06 11:31] LABS: Appearance Urine Clear (Clear); Bacteria Urine Automated Negative (Negative); Bilirubin Urine Negative (Negative); Blood Urine Negative (Negative); Cast Urine Automated 0 /lpf (0-5); Color Urine Yellow; Glucose Urine UA Negative (Negative); Ketones Urine Negative (Negative); Leukocyte Esterase Urine Negative (Negative); Nitrite Urine Negative (Negative); RBC Urine Automated 0-4 /hpf (0-4); Specific Gravity Urine 1.016 (1.000-1.030); Urobilinogen Urine Positive (Negative); pH Urine 8.5 (4.5-7.5)
[2021-02-06 11:33] LABS: Protein Urine Trace (Negative)
--- NOTE | 2021-02-06 11:49 | Ultrasound Report ---
BILATERAL LOWER EXTREMITY VENOUS DOPPLER CLINICAL HISTORY: Pulmonary emboli. Evaluate for deep venous thrombus. COMPARISON STUDY: No previous studies for comparison. TECHNIQUE: Sonography of the deep venous system of the bilateral lower extremities was performed. Co mpression and augmentation were evaluated. FINDINGS: The bilateral common femoral, superficial femoral and popliteal veins were compressible. A ugmentation was normal. Flow was shown within the deep calf vessels. IMPRESSION: No evidence of deep venous thrombus within the bilateral lower extremities. ACT 112: Negative or not required by law. Electronically signed by: Edson Barreto M.D. 02/06/2021 11:47 AM
--- NOTE | 2021-02-06 12:01 | Consultation ---
Date of Consultation February 06, 2021 Assessment & Plan (1) Pulmonary embolism: Pt with BL PE, but no definite DVT source from BLE, and no DVT noted in pelvis on CT scans. Pt without any leg pain or edema that would indicate DVT, and also appears to be oxygenating well without oxygen despite her PE. Pt also eval by Dr Archer, does not recommend IVC filter insertion at this time. Time of AC interruption to be determined by medicine/gen surgery team. Would be happy to reeval pt if she develops DVT. Please call if needed. History of Present Illness Reason for Consultation: PE, hematoma, possible need IVC filter Attending Physician: Luis Armando Cabrera MD, FACS History of Present Illness 70 yo F with hx of lung disease, hx of remote hemicolectomy, conective tissue disease, admitted with SBO and perforated viscous and s/p ex lap and lysis of adhesions, seen in consultation today to determine need for IVC filter d/t PE noted on CTA and rectus hematoma on heparin. Pt admits malaise, abd discomfort, and prior N/V which has resolved. Denies hx of DVT/PE in past. Denies fever, chest pain, SOB, N/V currently, rest pain, claudication, edema, leg pain, other complaints. Pt therapeutic on heparin, hgb trending down from 11-8 over past 3 days. CTA chest demonstrates BL subsegmental PE's. BLE venous US done this AM demonstrates no DVT. Allergies Allergy/AdvReac Type Severity Reaction Status Date / Time latex Allergy Unknown Unknown Verified 02/03/21 13:09 leflunomide AdvReac Unknown Unknown Verified 01/29/21 13:14 Home Medications Medication Instructions Recorded Confirmed Type budesonide-formoterol HFA 160 1 puff INHALATION DIRECTED 10/19/19 01/29/21 History mcg-4.5 mcg/actuation aerosol inhaler (Symbicort) hydroxychloroquine 200 mg tablet 200 mg PO DAILY 03/10/20 01/29/21 History ergocalciferol (vitamin D2) 1,250 50,000 unit PO .QTUESDAY 01/29/21 01/29/21 History mcg (50,000 unit) capsule prednisone 10 mg tablet 10 mg PO DAILY 01/29/21 01/29/21 History pregabalin 75 mg capsule 75 mg PO DAILY 01/29/21 01/29/21 History Patient History Medical History Chronic obstructive asthma Heart disease Kidney stones Mixed connective tissue disease Surgical History History of ankle surgery History of bowel resection X 2 AT [facility] [place] S/P PERFORATION AFTER COLONOSCOPY History of laparotomy (01/29/21) Exploratory laparotomy with lysis of adhesions. Dr. Cabrera 01/29/2021 History of lithotripsy renal S/P cataract surgery S/P cholecystectomy Family History Mother Squamous cell carcinoma Uterine cancer Breast cancer Hypertension Father Squamous cell carcinoma Breast cancer Hypertension Diabetes Cardiac disorder Family/Other Uterine cancer Breast cancer Denies family history of Ovarian cancer Colorectal cancer Social History Smoking Status: Former smoker Smoking End Date: 1990; Hx Alcohol Use: No Hx Substance Use: No Preferred Language: Sammarinese Communication Ability: Effective School Phot[employer] Detailer Required: No Beliefs That Will Affect Care: None marital status: Current Living Situation: Alone Other Information That Helps Us Care for You: No Feels Safe at Home: Yes Safety Concerns: Feels Safe At This Time Assistive Devices: Glasses and Oxygen - Continuous Review of Systems Review of Systems: 14systems reviewed and negative aside from HPI. Physical Exam Constitutional: WD/WN, vitals as above healthy appearing and comfortable; not in distress ENMT: Ears: no hearing impairment Neck: trachea midline Respiratory: normal respiratory effort Auscultation: lungs clear to auscultation bilaterally and + diminished lung sounds Cardiovascular: Rate/Rhythm: regular rhythm and + tachycardic Vessels: femoral pulses present, posterior tibial pulses present, dorsalis pedis pulses present and brachial pulses present; no carotid bruit and + abnormal peripheral pulses Extremities: normal capillary refill; no edema Gastrointestinal (Abdomen): Percussion/Palpation: + abdomen tender (over incision) and abdomen soft Musculoskeletal: no cyanosis or clubbing, extremities motor strength 5/5 Skin: no rashes, warm and dry Neurologic: moves all extremities and awake; no focal motor deficits and not confused Psychiatric: Orientation: alert and oriented x 3 Eye Contact: + fair eye contact Affect: + depressed affect and + irritable affect Results & Data ([facility]) Vital Signs (Past 12 Hours) Vital Signs Temp Pulse Resp BP Pulse Ox 02/06/21 07:34 36.7 C 105 H 19 103/53 L 93 02/06/21 06:13 37.1 C 117 H 16 102/59 L 91
[2021-02-06 12:07] LABS: Basophils # (auto) 0.01 K/uL (0-0.2); Basophils % (auto) 0.1 %; Eosinophils # (auto) 0.26 K/uL (0-0.5); Eosinophils % (auto) 2.7 %; Hematocrit (blood only) 28.1 % (37-47); Hemoglobin 9.1 g/dL (12.0-16.0); Immature Granulocytes # (auto) 0.01 K/uL (0.00-0.02); Immature Granulocytes % (auto) 0.1 %; Lymphocytes # (auto) 1.34 K/uL (1.2-3.4); Lymphocytes % (auto) 13.8 %; Mean Corpuscular Hemoglobin 29.8 pg (25-34); Mean Corpuscular Hgb Conc 32.4 g/dL (32-36); Mean Corpuscular Volume 92.1 fL (80-100); Mean Platelet Volume 12.1 fL (7.4-10.4); Monocytes # (auto) 0.86 K/uL (0.11-0.59); Monocytes % (auto) 8.9 %; Neutrophils # (auto) 7.23 K/uL (1.4-6.5); Neutrophils % (auto) 74.4 %; Platelet Count 134 K/uL (130-400); RDW Standard Deviation 50.8 fL (36.4-46.3); Red Blood Count 3.05 M/uL (4.2-5.4); White Blood Count 9.71 K/uL (4.8-10.8)
[2021-02-06] MEDS ORDERED: TPN IV SCH (16:00)
[2021-02-06] MEDS ORDERED: CENTRAL PN IV SCH (16:00)
[2021-02-06] MEDS: HEPARIN SODIUM/DEXTROSE 25,000 UNITS/500 ML BAG IV SCH (19:15)
[2021-02-06] MEDS: QUEtiapine FUMARATE 25 MG TABLET PO SCH (19:50)
[2021-02-06] MEDS: HYDROmorphone INJ 0.5 MG/0.5 ML SYR IV PRN (22:38)
[2021-02-07 07:43] LABS: BUN Creatinine Ratio 42.7 (10-20); Creatinine Clr Calc Pharmacy 40.5 ml/min; Est GFR (African American) 67.4 ml/min; Est GFR (Non-African American) 58.1 ml/min; Magnesium 2.2 mg/dl (1.8-2.4); Potassium 4.4 mmol/L (3.5-5.1)
--- NOTE | 2021-02-07 07:48 | Surgery Progress Note ---
Date of Service February 07, 2021 Assessment & Plan (1) SBO (small bowel obstruction): Plan: Patient had a much better night Awake and alert this morning Receiving TPN and IV heparin Tolerating full liquids-we will advance to low fiber diet Add senna syrup OT and PT unable to assess patient yesterday because of fatigue Discussed possible rehab she is somewhat resistant and wants to go home Continues to be very weak Last albumin was 1.8 on 01/31/21-asked industrial gas servicer to see the patient Continue TPN Admission and Anticipated Discharge Date Admission Date: January 29, 2021 Results & Data ([facility]) Vital Signs (Past 12 Hours) Vital Signs Temp Pulse Resp BP Pulse Ox 02/07/21 07:05 36.9 C 103 H 16 106/67 91 02/07/21 04:21 36.6 C 100 H 18 104/66 93 02/07/21 00:00 37.1 C 104 H 16 95/59 L 94 02/06/21 19:53 37.5 C 94 H 18 110/71 96 PG Care Time/CCT Total # of Minutes Spent Total Time Spent with Patient: Total time spent is greater than 50% in coordination of care (as documented) at patient's floor/unit and/or counseling patient: Coding Level of Care Code None Diagnoses SBO (small bowel obstruction) K56.609
[2021-02-07 07:51] LABS: Bilirubin,Total 0.6 mg/dl (0.2-1); Phosphorus 3.6 mg/dl (2.5-4.9)
[2021-02-07] MEDS: SENNOSIDES 8.8 MG/5 ML UDC PO SCH ×2 (08:44→19:47)
[2021-02-07] MEDS: predniSONE 10 MG TABLET NG SCH (08:45)
[2021-02-07] MEDS: FAMOTIDINE 20 MG in SYRINGE 3 ML IV SCH (08:47)
[2021-02-07 08:59] LABS: Albumin Level 1.6 gm/dl (3.4-5.0); Prealbumin 11.3 mg/dl (20-40)
--- NOTE | 2021-02-07 11:59 | Hospitalist Progress Note ---
Date of Service February 07, 2021 Assessment & Plan (1) Anemia: Plan: Ashia is a 70-year-old female with a past medical history of restrictive lung disease who presented with tachycardia and hypotension with concern for bowel perforation and who was admitted for concern of potential bowel perforation and he was noted to have pulmonary embolism on 02/01. Acute blood loss anemia 2/2 postsurgical losses with anticoagulation Received 2 units of packed red blood cells with appropriate rise CT A/P 02/03/2021 acute left rectus sheath hematoma measures 6.2 x 4.1 x 16.6 cm. Fluid and hemorrhage is also noted within the ventral midline abdominal wall incision. Mild associated pelvic hemoperitoneum. -Heparin initially stopped in the setting of anemia, restarted when hemoglobin stabilized 02/06 hemoglobin continued to downtrend 9.8->8.7 with BP 103/53 and uptrending tachycardic. Discussed with surgery. Concern for continued bleeding, heparin held. Hemoglobin again uptrending? Daily variance, repeat CBC pending. Hematology consulted for ongoing anticoagulation recommendations. On clinical exam hematoma soft, nontender, does not appear clinically worsened. - Discussed w/ heme. high risk PE, deferring anticoagulation is not a good option. Given stable clinical picture and uptrending hgb resume low dose heparin + very slow warfarin titration. Could consider warfarin without complete bridge (low risk of necrosis). Will resume heparin and initiate very slow warfarin titration, continue CBC checks. (2) Acute delirium: Plan: Pt has developed delerium in the post operative setting/ ICU delirium, improved once had a better night sleep, seems to have paradoxical affect from ativan, using haldol and added some seroquel hs -Patient somnolent today but arouses easily and alert and oriented x3 on exam No fevers last 24 hours. no obvious infectious source, no leukocytosis, chest x-ray without consolidation, UA not infected appearing (3) Pulmonary embolism: Plan: 02/01 found to have PE - CTA: Bilateral segmental/subsegmental pulmonary emboli. No evidence for right- sided heart strain. Trace bilateral pleural effusions. Small amount of pneumoperitoneum is again noted. This is nonspecific but may be due to the recent postoperative change. - Anticoagulation resumed as noted above. Pursing gradual titration (4) Sepsis: Plan: -Admitted 01/29 with hypotensive with BP 78/54 with Lactic 3.5, BUN/Cr 59/3.6 (baseline Cr ~1) WBC 14.4k -concerns for bowel perforation on imaging following n/v with reported 4 garbage cans full of vomit. -CTAP with excessive pneumatosis of multiple small bowel loops with small amount of associated pneumoperitoneum. Although pneumatosis is nonspecific, the findings are highly suggestive of small bowel ischemia with bowel perforation. Surgical consultation was obtained - - s/p Exploratory laparotomy with lysis of adhesions 01/29/[address] Cabrera - Sepsis suspected 2nd to Hypovolemic Shock -Improving, diet per surgery. Progressing, remains on TPN (5) Elevated troponin: Plan: suspect 2nd to demand/hypovolemic shock as above associated with sepsis No CP reported EKG stable from prior Dec 2019, PACs no longer present Trending down --.> 2nd to demand from hypovolemic shock No CP/SOB reported Continued monitoring on telemetry (6) Hypovolemic shock: Plan: resolved (7) TAB (acute kidney injury): Plan: resolved (8) Bowel perforation: Plan: concerns for as above given imaging with description of pneumatosis of the small bowel with small amount of pneumoperitoneum. Into the OR but no perforation seen (9) Chronic obstructive asthma: Plan: continue home inhaler regimen incentive spirometer no sob/wheezing on exam supplemental O2 as above and encouraging incentive spirometery (10) Mixed connective tissue disease: Plan: plaquenil on hold Follows with Dr. Kyle [facility] Initially on stress dose hydrocortisone 50 mg IV twice daily, transitioned back to prednisone 10 mg daily home dosing (11) DVT prophylaxis: Plan: See heparin GTT notes above Admission and Anticipated Discharge Date Admission Date: January 29, 2021 Subjective Seen at bedside this morning.Reports she feels okay, denies pain. Is somewhat frustrated by the difficulty with intermittent bleeding and starting anticoagulation for her PEs, but otherwise no questions or concerns today. Denies lightheadedness, dizziness, chest pain, chest pressure at time of visit. Has eaten comfortably today. Abdomen feels unchanged, no firmness or expanded bruising that she noticed but also reports that it is a surgical dressing and she cannot see. Review of Systems Review of Systems: All systems reviewed & are unremarkable except as noted in Subjective Physical Exam Physical Exam: General: A&Ox3, somnolent but arouses easily. NAD. Cooperative. HEENT: Atraumatic, normocephalic. Visual acuity and hearing grossly intact. Pulm: CTAB A&P. -wheezes, -rales, -rhonchi. Symmetrical chest rise. No increase work of breathing. No respiratory distress. Cardiac: RRR, -mrg. Radial pulses intact and symmetrical. Abdominal: Postsurgical abdominal dressing in place, C/D/I. Appropriate postsurgical tenderness overlying surgical incisions, otherwise abdomen soft, without rebound tenderness, without guarding. Bowel sounds diminished Results & Data Results & Data ([facility]) Vital Signs (Past 12 Hours) Vital Signs Temp Pulse Pulse Resp BP Pulse Ox 02/07/21 11:38 36.8 C 101 H 16 99/62 L 92 02/07/21 08:00 96 H 02/07/21 07:05 36.9 C 103 H 16 106/67 91 02/07/21 04:21 36.6 C 100 H 18 104/66 93 02/07/21 00:00 37.1 C 104 H 16 95/59 L 94 PG Care Time/CCT Total # of Minutes Spent Total Time Spent with Patient: Total time spent is greater than 50% in coordination of care (as documented) at patient's floor/unit and/or counseling patient: Coding Level of Care Code 32839 Subseq Hosp Care Lvl 3 Diagnoses Anemia D64.9 Acute delirium R41.0 Pulmonary embolism I26.99 Sepsis A41.9 Sepsis acute organ dysfunction status: unspecified Sepsis type: sepsis due to unspecified organism Elevated troponin R77.8 Hypovolemic shock R57.1 TAB (acute kidney injury) N17.9 Bowel perforation K63.1 Chronic obstructive asthma J44.9 Mixed connective tissue disease M35.1 DVT prophylaxis Z29.9 (1) Sepsis Sepsis acute organ dysfunction status: unspecified Sepsis type: sepsis due to unspecified organism Qualified Code(s): A41.9 - Sepsis, unspecified organism
[2021-02-07] MEDS ORDERED: Heparin IV Adult Wt-Based Low-Dose *NO* Bolus Protocol IV STA (14:05)
[2021-02-07] MEDS: HEPARIN SODIUM/DEXTROSE 25,000 UNITS/500 ML BAG IV SCH (15:12)
[2021-02-07] MEDS ORDERED: CENTRAL PN IV SCH (16:00)
[2021-02-07] MEDS ORDERED: TPN IV SCH (16:00)
[2021-02-07] MEDS: WARFARIN SOD 2.5 MG TAB PO SCH (17:23)
[2021-02-07] MEDS: QUEtiapine FUMARATE 25 MG TABLET PO SCH (20:53)
[2021-02-07 21:23] LABS: Partial Thromboplastin Ratio 1.1
[2021-02-07] MEDS ORDERED: HEPARIN SOD (PORCINE) 1000 UNIT/ML IV ONE (21:42)
[2021-02-07] MEDS ORDERED: HEPARIN IV BOLUS 3,000 UNITS in SYRINGE 0 ML IV SCH (22:00)
[2021-02-08 04:49] LABS: Basophils # (auto) 0.01 K/uL (0-0.2); Basophils % (auto) 0.1 %; Eosinophils # (auto) 0.26 K/uL (0-0.5); Eosinophils % (auto) 3.1 %; Hematocrit (blood only) 27.5 % (37-47); Hemoglobin 8.7 g/dL (12.0-16.0); Immature Granulocytes # (auto) 0.02 K/uL (0.00-0.02); Immature Granulocytes % (auto) 0.2 %; Lymphocytes # (auto) 2.15 K/uL (1.2-3.4); Lymphocytes % (auto) 25.7 %; Mean Corpuscular Hemoglobin 29.7 pg (25-34); Mean Corpuscular Hgb Conc 31.6 g/dL (32-36); Mean Corpuscular Volume 93.9 fL (80-100); Monocytes % (auto) 8.4 %; Neutrophils # (auto) 5.21 K/uL (1.4-6.5); Neutrophils % (auto) 62.5 %; Platelet Count 187 K/uL (130-400); RDW Coefficient of Variation 15.2 % (11.5-14.5); RDW Standard Deviation 51.5 fL (36.4-46.3); Red Blood Count 2.93 M/uL (4.2-5.4); White Blood Count 8.35 K/uL (4.8-10.8)
[2021-02-08 04:59] LABS: Partial Thromboplastin Ratio 1.4; Partial Thromboplastin Time 36.9 Seconds (21.0-31.0)
[2021-02-08 05:07] LABS: Creatinine Clr Calc Pharmacy 37.8 ml/min; Est GFR (Non-African American) 53.5 ml/min; Magnesium 2.2 mg/dl (1.8-2.4); Phosphorus 3.5 mg/dl (2.5-4.9); Potassium 4.5 mmol/L (3.5-5.1)
[2021-02-08] MEDS ORDERED: HEPARIN SOD (PORCINE) 1000 UNIT/ML IV ONE ×2 (05:49→12:56)
[2021-02-08] MEDS ORDERED: HEPARIN IV BOLUS 2,000 UNITS in SYRINGE 0 ML IV SCH (06:00)
--- NOTE | 2021-02-08 07:15 | Hospitalist Progress Note ---
Date of Service February 08, 2021 Assessment & Plan (1) Anemia: Plan: Ashia is a 70-year-old female with a past medical history of restrictive lung disease who presented with tachycardia and hypotension with concern for bowel perforation and who was admitted for concern of potential bowel perforation and he was noted to have pulmonary embolism on 02/01. Acute blood loss anemia 2/2 postsurgical losses with anticoagulation Received 2 units of packed red blood cells with appropriate rise CT A/P 02/03/2021 acute left rectus sheath hematoma measures 6.2 x 4.1 x 16.6 cm. Fluid and hemorrhage is also noted within the ventral midline abdominal wall incision. Mild associated pelvic hemoperitoneum. -Heparin initially stopped in the setting of anemia, restarted when hemoglobin stabilized 02/06 hemoglobin continued to downtrend 9.8->8.7 with BP 103/53 and uptrending tachycardic. Discussed with surgery. Concern for continued bleeding, heparin held. Hemoglobin again uptrending? Daily variance, repeat CBC pending. Hematology consulted for ongoing anticoagulation recommendations. On clinical exam hematoma soft, nontender, does not appear clinically worsened. - Discussed w/ heme. high risk PE, deferring anticoagulation is not a good option. Given stable clinical picture and uptrending hgb resume low dose heparin + very slow warfarin titration. Could consider warfarin without complete bridge (low risk of necrosis). Will resume heparin and initiate very slow warfarin titration, continue CBC checks. Slight downtrend this morning, clinically stable, continue with rechecks at 1200, 2000. (2) Acute delirium: Plan: Pt has developed delerium in the post operative setting/ ICU delirium, improved once had a better night sleep, seems to have paradoxical affect from ativan, using haldol and added some seroquel hs -Patient intermittently delirious/somnilent. Appropriate and alert today. No fevers last 24 hours. no obvious infectious source, no leukocytosis, chest x-ray without consolidation, UA not infected appearing (3) Pulmonary embolism: Plan: 02/01 found to have PE - CTA: Bilateral segmental/subsegmental pulmonary emboli. No evidence for right- sided heart strain. Trace bilateral pleural effusions. Small amount of pneumoperitoneum is again noted. This is nonspecific but may be due to the recent postoperative change. - Anticoagulation resumed as noted above. Pursuing gradual titration (4) Sepsis: Plan: -Admitted 01/29 with hypotensive with BP 78/54 with Lactic 3.5, BUN/Cr 59/3.6 (baseline Cr ~1) WBC 14.4k -concerns for bowel perforation on imaging following n/v with reported 4 garbage cans full of vomit. -CTAP with excessive pneumatosis of multiple small bowel loops with small amount of associated pneumoperitoneum. Although pneumatosis is nonspecific, the findings are highly suggestive of small bowel ischemia with bowel perforation. Surgical consultation was obtained - - s/p Exploratory laparotomy with lysis of adhesions 01/29/[address] Cabrera - Sepsis suspected 2nd to Hypovolemic Shock -Improving, diet per surgery. Progressing, remains on TPN (5) Elevated troponin: Plan: suspect 2nd to demand/hypovolemic shock as above associated with sepsis No CP reported EKG stable from prior Dec 2019, PACs no longer present Trending down --.> 2nd to demand from hypovolemic shock No CP/SOB reported Continued monitoring on telemetry (6) Hypovolemic shock: Plan: resolved (7) TAB (acute kidney injury): Plan: resolved (8) Bowel perforation: Plan: concerns for as above given imaging with description of pneumatosis of the small bowel with small amount of pneumoperitoneum. Into the OR but no perforation seen (9) Chronic obstructive asthma: Plan: continue home inhaler regimen incentive spirometer no sob/wheezing on exam supplemental O2 as above and encouraging incentive spirometery (10) Mixed connective tissue disease: Plan: plaquenil on hold Follows with [facility] [place] Initially on stress dose hydrocortisone 50 mg IV twice daily, transitioned back to prednisone 10 mg daily home dosing (11) DVT prophylaxis: Plan: See heparin GTT notes above, slow warfarin titration Admission and Anticipated Discharge Date Admission Date: January 29, 2021 Subjective Seen at bedside this morning. Pt discussed her anticoagultion with her primary care Dr. Butcher, is in agreement with anticoagulation plan. She understands the risks/benefits of anticoagulation for her PEs and with her hgb counts, understands low and slow heparin/warfarin trial with observation for clinical signs of bleeding. Pt feels unchanged today. Denies lightheadedness, dizziness, CP/CPressure. Progressing well from a diet standpoint, TPN decreased by half today. Review of Systems Review of Systems: All systems reviewed & are unremarkable except as noted in Subjective Physical Exam Physical Exam: General: A&O. NAD. Cooperative. Follows 1 and 2 step commands. HEENT: Atraumatic, normocephalic. Visual acuity and hearing grossly intact. Pulm: CTAB A&P. -wheezes, -rales, -rhonchi. Symmetrical chest rise. No increase work of breathing. No respiratory distress. Cardiac: RRR, -mrg. Radial pulses intact and symmetrical. Abdominal: Postsurgical abdominal dressing in place, C/D/I. Appropriate postsurgical tenderness overlying surgical incisions, otherwise abdomen soft, without rebound tenderness, without guarding. BS intact. Results & Data Results & Data ([facility]) Vital Signs (Past 12 Hours) Vital Signs Temp Pulse Resp BP Pulse Ox 02/08/21 03:00 36.5 C 95 H 16 130/76 95 02/07/21 23:42 36.9 C 100 H 18 147/71 H 94 02/07/21 19:50 36.9 C 92 H 18 127/78 96 PG Care Time/CCT Total # of Minutes Spent Total Time Spent with Patient: Total time spent is greater than 50% in coordination of care (as documented) at patient's floor/unit and/or counseling patient: Coding Level of Care Code 79145 Subseq Hosp Care Lvl 3 Diagnoses Anemia D64.9 Acute delirium R41.0 Pulmonary embolism I26.99 Sepsis A41.9 Sepsis acute organ dysfunction status: unspecified Sepsis type: sepsis due to unspecified organism Elevated troponin R77.8 Hypovolemic shock R57.1 TAB (acute kidney injury) N17.9 Bowel perforation K63.1 Chronic obstructive asthma J44.9 Mixed connective tissue disease M35.1 DVT prophylaxis Z29.9 (1) Sepsis Sepsis acute organ dysfunction status: unspecified Sepsis type: sepsis due to unspecified organism Qualified Code(s): A41.9 - Sepsis, unspecified organism
[2021-02-08] MEDS: predniSONE 10 MG TABLET NG SCH (08:24)
[2021-02-08] MEDS: SENNOSIDES 8.8 MG/5 ML UDC PO SCH ×2 (08:24→19:29)
[2021-02-08] MEDS: FAMOTIDINE 20 MG in SYRINGE 3 ML IV SCH (08:28)
[2021-02-08 09:43] LABS: Prothrombin Time 9.9 Seconds (9.0-12.0)
--- NOTE | 2021-02-08 10:22 | Surgery Progress Note ---
Date of Service February 08, 2021 Assessment & Plan (1) SBO (small bowel obstruction): Plan: Patient seems to be tolerating half her meals She does take supplements at home We will decrease her TPN by half Still not walking significantly although OT feels that she probably could go home with her sister at some point Gradually titrating her heparin/Coumadin May need 2-3 more days prior to discharge to her home which would be the plan Admission and Anticipated Discharge Date Admission Date: January 29, 2021 Results & Data ([facility]) Vital Signs (Past 12 Hours) Vital Signs Temp Pulse Pulse Resp BP Pulse Ox 02/08/21 08:08 36.8 C 74 20 129/66 96 02/08/21 07:34 92 H 02/08/21 03:00 36.5 C 95 H 16 130/76 95 02/07/21 23:42 36.9 C 100 H 18 147/71 H 94 PG Care Time/CCT Total # of Minutes Spent Total Time Spent with Patient: Total time spent is greater than 50% in coordination of care (as documented) at patient's floor/unit and/or counseling patient: Coding Level of Care Code None Diagnoses SBO (small bowel obstruction) K56.609
[2021-02-08] MEDS ORDERED: CENTRAL PN IV SCH ×2 (11:15→16:00)
[2021-02-08] MEDS ORDERED: TPN IV SCH ×2 (11:15→16:00)
[2021-02-08 12:30] LABS: Hematocrit (blood only) 26.5 % (37-47); Hemoglobin 8.4 g/dL (12.0-16.0)
[2021-02-08 12:49] LABS: Partial Thromboplastin Ratio 1.4; Partial Thromboplastin Time 35.6 Seconds (21.0-31.0)
[2021-02-08] MEDS: WARFARIN SOD 2.5 MG TAB PO SCH (16:39)
[2021-02-08] MEDS: HEPARIN SODIUM/DEXTROSE 25,000 UNITS/500 ML BAG IV SCH (16:43)
[2021-02-08] MEDS: QUEtiapine FUMARATE 25 MG TABLET PO SCH (19:47)
[2021-02-08 19:58] LABS: Hematocrit (blood only) 27.4 % (37-47); Hemoglobin 8.7 g/dL (12.0-16.0)
[2021-02-08 20:38] LABS: Partial Thromboplastin Time 51.3 Seconds (21.0-31.0)
[2021-02-09 07:29] LABS: Partial Thromboplastin Ratio 1.8
[2021-02-09 07:43] LABS: Calcium 8.3 mg/dl (8.5-10.1); Creatinine Clr Calc Pharmacy 34.7 ml/min; Est GFR (African American) 58.7 ml/min; Est GFR (Non-African American) 50.6 ml/min; Magnesium 2.1 mg/dl (1.8-2.4); Potassium 4.2 mmol/L (3.5-5.1)
[2021-02-09 07:45] LABS: Phosphorus 4.2 mg/dl (2.5-4.9)
[2021-02-09 07:52] LABS: Partial Thromboplastin Time 47.1 Seconds (21.0-31.0)
--- NOTE | 2021-02-09 07:55 | Hospitalist Progress Note ---
Date of Service February 09, 2021 Assessment & Plan (1) Anemia: Plan: Ashia is a 70-year-old female with a past medical history of restrictive lung disease who presented with tachycardia and hypotension with concern for bowel perforation and who was admitted for concern of potential bowel perforation and he was noted to have pulmonary embolism on 02/01. Acute blood loss anemia 2/2 postsurgical losses with anticoagulation Received 2 units of packed red blood cells with appropriate rise CT A/P 02/03/2021 acute left rectus sheath hematoma measures 6.2 x 4.1 x 16.6 cm. Fluid and hemorrhage is also noted within the ventral midline abdominal wall incision. Mild associated pelvic hemoperitoneum. -Heparin initially stopped in the setting of anemia, restarted when hemoglobin stabilized 02/06 hemoglobin continued to downtrend 9.8->8.7 with BP 103/53 and uptrending tachycardic. Discussed with surgery. Concern for continued bleeding, heparin held. Hemoglobin again uptrending? Daily variance, repeat CBC pending. Hematology consulted for ongoing anticoagulation recommendations. On clinical exam hematoma soft, nontender, does not appear clinically worsened. - Discussed w/ heme. high risk PE, deferring anticoagulation is not a good option. Given stable clinical picture and uptrending hgb resume low dose heparin + very slow warfarin titration. Could consider warfarin without complete bridge (low risk of necrosis). Will resume heparin and initiate very slow warfarin titration, Hgb remaining stable, q12h checks, continue warfarin uptitration and hep low dose. (2) Acute delirium: Plan: Pt has developed delerium in the post operative setting/ ICU delirium, improved once had a better night sleep, seems to have paradoxical affect from ativan, using haldol and added some seroquel hs -Patient intermittently delirious/somnilent. Appropriate and alert today. No fevers last 24 hours. no obvious infectious source, no leukocytosis, chest x-ray without consolidation, UA not infected appearing (3) Pulmonary embolism: Plan: 02/01 found to have PE - CTA: Bilateral segmental/subsegmental pulmonary emboli. No evidence for right- sided heart strain. Trace bilateral pleural effusions. Small amount of pneumoperitoneum is again noted. This is nonspecific but may be due to the recent postoperative change. - Anticoagulation resumed as noted above. Pursuing gradual titration (4) Sepsis: Plan: -Admitted 01/29 with hypotensive with BP 78/54 with Lactic 3.5, BUN/Cr 59/3.6 (baseline Cr ~1) WBC 14.4k -concerns for bowel perforation on imaging following n/v with reported 4 garbage cans full of vomit. -CTAP with excessive pneumatosis of multiple small bowel loops with small amount of associated pneumoperitoneum. Although pneumatosis is nonspecific, the findings are highly suggestive of small bowel ischemia with bowel perforation. Surgical consultation was obtained - - s/p Exploratory laparotomy with lysis of adhesions 01/29/[address] Cabrera - Sepsis suspected 2nd to Hypovolemic Shock -Improving, diet per surgery. Progressing, remains on TPN like 3-4 more days (5) Elevated troponin: Plan: suspect 2nd to demand/hypovolemic shock as above associated with sepsis No CP reported EKG stable from prior Dec 2019, PACs no longer present Trending down --.> 2nd to demand from hypovolemic shock No CP/SOB reported Continued monitoring on telemetry (6) Hypovolemic shock: Plan: resolved (7) TAB (acute kidney injury): Plan: resolved (8) Bowel perforation: Plan: concerns for as above given imaging with description of pneumatosis of the small bowel with small amount of pneumoperitoneum. Into the OR but no perforation seen (9) Chronic obstructive asthma: Plan: continue home inhaler regimen incentive spirometer no sob/wheezing on exam supplemental O2 as above and encouraging incentive spirometery (10) Mixed connective tissue disease: Plan: plaquenil on hold Follows [facility] Initially on stress dose hydrocortisone 50 mg IV twice daily, transitioned back to prednisone 10 mg daily home dosing (11) DVT prophylaxis: Plan: See heparin GTT notes above, slow warfarin titration Admission and Anticipated Discharge Date Admission Date: January 29, 2021 Subjective Doing well this morning. No sx. No bleeding. No ab pain. No CP/Cpressures/SoB/Difficulty breathing. Discussed hgb levels, uptrending today. Will continue slow heparin gtt, warfarin uptitration. TPN decreased yesterday, anticipate ~4 more days per surgery. Review of Systems Review of Systems: All systems reviewed & are unremarkable except as noted in Subjective Physical Exam Physical Exam: General: A&O. NAD. Cooperative. Follows 1 and 2 step commands. HEENT: Atraumatic, normocephalic. Visual acuity and hearing grossly intact. Pulm: CTAB A&P. -wheezes, -rales, -rhonchi. Symmetrical chest rise. No increase work of breathing. No respiratory distress. Cardiac: RRR, -mrg. Radial pulses intact and symmetrical. Abdominal: Postsurgical abdominal dressing in place, C/D/I. Appropriate postsurgical tenderness overlying surgical incisions, otherwise abdomen soft, without rebound tenderness, without guarding. BS intact. Results & Data Results & Data ([facility]) Vital Signs (Past 12 Hours) Vital Signs Temp Pulse Resp BP Pulse Ox 02/09/21 04:42 36.5 C 85 20 116/67 94 02/08/21 23:47 36.5 C 82 20 111/69 91 PG Care Time/CCT Total # of Minutes Spent Total Time Spent with Patient: Total time spent is greater than 50% in coordin ation of care (as documented) at patient's floor/unit and/or counseling patient: Coding Level of Care Code 66960 Subseq Hosp Care Lvl 2 Diagnoses Anemia D64.9 Acute delirium R41.0 Pulmonary embolism I26.99 Sepsis A41.9 Sepsis acute organ dysfunction status: unspecified Sepsis type: sepsis due to unspecified organism Elevated troponin R77.8 Hypovolemic shock R57.1 TAB (acute kidney injury) N17.9 Bowel perforation K63.1 Chronic obstructive asthma J44.9 Mixed connective tissue disease M35.1 DVT prophylaxis Z29.9 (1) Sepsis Sepsis acute organ dysfunction status: unspecified Sepsis type: sepsis due to unspecified organism Qualified Code(s): A41.9 - Sepsis, unspecified organism
[2021-02-09] MEDS: FAMOTIDINE 20 MG in SYRINGE 3 ML IV SCH (08:24)
[2021-02-09] MEDS: SENNOSIDES 8.8 MG/5 ML UDC PO SCH ×2 (08:24→20:02)
[2021-02-09] MEDS: predniSONE 10 MG TABLET NG SCH (08:24)
--- NOTE | 2021-02-09 10:26 | Surgery Progress Note ---
Date of Service February 09, 2021 Assessment & Plan (1) SBO (small bowel obstruction): Plan: Patient is very weak but walking more 2 days ago her albumin was 1.6, she continues to require TPN She is trying supplements We are titrating her warfarin, she is on IV heparin She does not have 24-hour help at home even with her sister I do not think she can go home yet and would need [facility] if possible From my standpoint she may continue to need TPN for 4 to 5 days Admission and Anticipated Discharge Date Admission Date: January 29, 2021 Results & Data ([facility]) Vital Signs (Past 12 Hours) Vital Signs Temp Pulse Pulse Resp BP Pulse Ox 02/09/21 09:03 83 02/09/21 08:00 36.9 C 72 20 122/63 95 02/09/21 04:42 36.5 C 85 20 116/67 94 02/08/21 23:47 36.5 C 82 20 111/69 91 PG Care Time/CCT Total # of Minutes Spent Total Time Spent with Patient: Total time spent is greater than 50% in coordination of care (as documented) at patient's floor/unit and/or counseling patient: Coding Level of Care Code None Diagnoses SBO (small bowel obstruction) K56.609
[2021-02-09] MEDS ORDERED: CENTRAL PN IV SCH (16:00)
[2021-02-09] MEDS ORDERED: TPN IV SCH (16:00)
[2021-02-09] MEDS: HEPARIN SODIUM/DEXTROSE 25,000 UNITS/500 ML BAG IV SCH (16:10)
[2021-02-09] MEDS: WARFARIN SOD 2.5 MG TAB PO SCH (16:12)
[2021-02-09] MEDS: QUEtiapine FUMARATE 25 MG TABLET PO SCH (20:02)
[2021-02-10 06:17] LABS: Partial Thromboplastin Ratio 1.7; Partial Thromboplastin Time 43.4 Seconds (21.0-31.0); Prothrombin Time 10.2 Seconds (9.0-12.0)
--- NOTE | 2021-02-10 06:23 | Surgery Progress Note ---
Date of Service February 10, 2021 Assessment & Plan (1) SBO (small bowel obstruction): Plan: Patient is status post exploratory laparotomy with lysis of adhesions on 01/29/[address] Cabrera Continue analgesics Continue diet as tolerated Continue TPN for the present time Patient suffered a pulmonary embolism following surgery Lower extremity venous Dopplers did not demonstrate any evidence of DVT She is currently receiving heparin drip along with Coumadin Today her INR is only 1.0. We will plan on stopping heparin once her INR is 2.0 or greater Plan is for patient to go to [facility] prior to return home Admission and Anticipated Discharge Date Admission Date: January 29, 2021 Supervising Physician Co-Signing Physician Notes PNT S&E, agree with above. s/p exlap with return of bowel function. still weak, on tpn and PT. Waiting rehab placement. No changes. Subjective Patient is resting comfortably in bed. She notes some minor abdominal pain but denies any nausea or vomiting. She denies any shortness of breath. I discussed with patient's nurse. She did not identify any acute concerns overnight. Patient has been having bowel movement since surgery. Physical Exam Gastrointestinal (Abdomen): Patient's abdomen is soft and nondistended. Bowel sounds are present. Patient's his incision is clean dry and intact. There is pain noted with palpation near patient surgical incision Results & Data ([facility]) Vital Signs (Past 12 Hours) Vital Signs Temp Pulse Pulse Resp BP Pulse Ox 02/10/21 04:12 36.5 C 87 16 118/62 93 02/10/21 00:07 36.4 C L 80 16 114/70 95 02/09/21 22:38 81 02/09/21 19:14 36.5 C 105 H 19 119/71 92 PG Care Time/CCT Total # of Minutes Spent Total Time Spent with Patient: Total time spent is greater than 50% in coordination of care (as documented) at patient's floor/unit and/or counseling patient: Coding Level of Care Code None Diagnoses SBO (small bowel obstruction) K56.609
[2021-02-10] MEDS: SENNOSIDES 8.8 MG/5 ML UDC PO SCH ×2 (07:50→19:21)
[2021-02-10] MEDS: predniSONE 10 MG TABLET NG SCH (07:51)
[2021-02-10] MEDS: FAMOTIDINE 20 MG in SYRINGE 3 ML IV SCH (07:53)
[2021-02-10 09:10] LABS: Basophils # (auto) 0.02 K/uL (0-0.2); Basophils % (auto) 0.2 %; Eosinophils # (auto) 0.18 K/uL (0-0.5); Eosinophils % (auto) 2.1 %; Hematocrit (blood only) 28.2 % (37-47); Hemoglobin 9.1 g/dL (12.0-16.0); Immature Granulocytes # (auto) 0.02 K/uL (0.00-0.02); Immature Granulocytes % (auto) 0.2 %; Lymphocytes # (auto) 1.33 K/uL (1.2-3.4); Lymphocytes % (auto) 15.2 %; Mean Corpuscular Hemoglobin 30.3 pg (25-34); Mean Corpuscular Hgb Conc 32.3 g/dL (32-36); Mean Platelet Volume 12.2 fL (7.4-10.4); Monocytes # (auto) 0.77 K/uL (0.11-0.59); Monocytes % (auto) 8.8 %; Neutrophils # (auto) 6.45 K/uL (1.4-6.5); Neutrophils % (auto) 73.5 %; Platelet Count 234 K/uL (130-400); RDW Coefficient of Variation 15.5 % (11.5-14.5); RDW Standard Deviation 53.1 fL (36.4-46.3); White Blood Count 8.77 K/uL (4.8-10.8)
[2021-02-10 12:30] LABS: Partial Thromboplastin Ratio 1.7; Partial Thromboplastin Time 44.5 Seconds (21.0-31.0)
[2021-02-10] MEDS ORDERED: TPN IV SCH (16:00)
[2021-02-10] MEDS ORDERED: CENTRAL PN IV SCH (16:00)
[2021-02-10] MEDS: WARFARIN SOD 2.5 MG TAB PO SCH (16:19)
[2021-02-10] MEDS: HEPARIN SODIUM/DEXTROSE 25,000 UNITS/500 ML BAG IV SCH (16:20)
--- NOTE | 2021-02-10 17:24 | Hospitalist Progress Note ---
Date of Service February 10, 2021 Assessment & Plan (1) Anemia: Plan: Ashia is a 70-year-old female with a past medical history of restrictive lung disease who presented with tachycardia and hypotension with concern for bowel perforation and who was admitted for concern of potential bowel perforation and he was noted to have pulmonary embolism on 02/01. Acute blood loss anemia 2/2 postsurgical losses with anticoagulation Received 2 units of packed red blood cells with appropriate rise CT A/P 02/03/2021 acute left rectus sheath hematoma measures 6.2 x 4.1 x 16.6 cm. Fluid and hemorrhage is also noted within the ventral midline abdominal wall incision. Mild associated pelvic hemoperitoneum. -Heparin initially stopped in the setting of anemia, restarted when hemoglobin stabilized 02/06 hemoglobin continued to downtrend 9.8->8.7 with BP 103/53 and uptrending tachycardic. Discussed with surgery. Concern for continued bleeding, heparin held. Hemoglobin again uptrending? Daily variance, repeat CBC pending. Hematology consulted for ongoing anticoagulation recommendations. On clinical exam hematoma soft, nontender, does not appear clinically worsened. - Discussed w/ heme. high risk PE, deferring anticoagulation is not a good option. Given stable clinical picture and uptrending hgb resume low dose heparin + very slow warfarin titration. Could consider warfarin without complete bridge (low risk of necrosis). Will resume heparin and initiate very slow warfarin titration, Hgb remaining stable, [id number] checks, continue warfarin uptitration and hep low dose. Additional low dose of warfarin given today. [facility]tic[facility]ate [facility] once anticoagulated/therapeutic (2) Acute delirium: Plan: Pt has developed delerium in the post operative setting/ ICU delirium, improved once had a better night sleep, seems to have paradoxical affect from ativan, using haldol and added some seroquel hs -Patient intermittently delirious/somnilent. Appropriate and alert today. No fevers last 24 hours. no obvious infectious source, no leukocytosis, chest x-ray without consolidation, UA not infected appearing Mental status appears greatly improved last 24-48 hours, no delirium appreciated at bedside visit 02/10 (3) Pulmonary embolism: Plan: 02/01 found to have PE - CTA: Bilateral segmental/subsegmental pulmonary emboli. No evidence for right- sided heart strain. Trace bilateral pleural effusions. Small amount of pneumoperitoneum is again noted. This is nonspecific but may be due to the rec ent postoperative change. - Anticoagulation resumed as noted above. Pursuing gradual titration (4) Sepsis: Plan: -Admitted 01/29 with hypotensive with BP 78/54 with Lactic 3.5, BUN/Cr 59/3.6 (baseline Cr ~1) WBC 14.4k -concerns for bowel perforation on imaging following n/v with reported 4 garbage cans full of vomit. -CTAP with excessive pneumatosis of multiple small bowel loops with small amount of associated pneumoperitoneum. Although pneumatosis is nonspecific, the findings are highly suggestive of small bowel ischemia with bowel perforation. Surgical consultation was obtained - - s/p Exploratory laparotomy with lysis of adhesions 01/29/[address] Cabrera - Sepsis suspected 2nd to Hypovolemic Shock -Improving, diet per surgery. Progressing, remains on TPN for few more days per surgery (5) Elevated troponin: Plan: suspect 2nd to demand/hypovolemic shock as above associated with sepsis No CP reported EKG stable from prior Dec 2019, PACs no longer present Trending down --.> 2nd to demand from hypovolemic shock No CP/SOB reported Continued monitoring on telemetry (6) Hypovolemic shock: Plan: resolved (7) TAB (acute kidney injury): Plan: resolved (8) Bowel perforation: Plan: concerns for as above given imaging with description of pneumatosis of the small bowel with small amount of pneumoperitoneum. Into the OR but no perforation seen (9) Chronic obstructive asthma: Plan: continue home inhaler regimen incentive spirometer no sob/wheezing on exam supplemental O2 as above and encouraging incentive spirometery (10) Mixed connective tissue disease: Plan: plaquenil on hold Follows with Dr. [facility] Initially on stress dose hydrocortisone 50 mg IV twice daily, transitioned back to prednisone 10 mg daily home dosing (11) DVT prophylaxis: Plan: See heparin GTT notes above, slow warfarin titration Admission and Anticipated Discharge Date Admission Date: January 29, 2021 Subjective Doing well today. No bleeding, soreness at staple removal site. Abdomen continues well-healing without discharge. No spreading hematoma. Belly soft. Hopeful to be making progress towards discharge, otherwise no questions or concerns today. Happy to hear her hemoglobin is uptrending. Review of Systems Review of Systems: All systems reviewed & are unremarkable except as noted in Subjective Physical Exam Physical Exam: General: A&O. NAD. Cooperative. Follows 1 and 2 step commands. HEENT: Atraumatic, normocephalic. Visual acuity and hearing grossly intact. Pulm: CTAB A&P. -wheezes, -rales, -rhonchi. Symmetrical chest rise. No increase work of breathing. No respiratory distress. Cardiac: RRR, -mrg. Radial pulses intact and symmetrical. Abdominal: Post surgical dressing removed, 4 ninoska removed yesterday for re main in place. C/D/I. Appropriate postsurgical tenderness overlying surgical incisions, otherwise abdomen soft, without rebound tenderness, without guarding. BS intact. Results & Data Results & Data ([facility]) Vital Signs (Past 12 Hours) Vital Signs Temp Pulse Pulse Resp BP Pulse Ox 02/10/21 16:00 88 02/10/21 15:00 36.8 C 77 20 107/63 98 02/10/21 11:57 36.7 C 65 18 117/62 96 02/10/21 08:00 36.8 C 89 74 18 135/77 97 PG Care Time/CCT Total # of Minutes Spent Total Time Spent with Patient: Total time spent is greater than 50% in coordination of care (as documented) at patient's floor/unit and/or counseling patient: Coding Level of Care Code 97889 Subseq Hosp Care Lvl 3 Diagnoses Anemia D64.9 Acute delirium R41.0 Pulmonary embolism I26.99 Sepsis A41.9 Sepsis acute organ dysfunction status: unspecified Sepsis type: sepsis due to unspecified organism Elevated troponin R77.8 Hypovolemic shock R57.1 TAB (acute kidney injury) N17.9 Bowel perforation K63.1 Chronic obstructive asthma J44.9 Mixed connective tissue disease M35.1 DVT prophylaxis Z29.9 (1) Sepsis Sepsis acute organ dysfunction status: unspecified Sepsis type: sepsis due to unspecified organism Qualified Code(s): A41.9 - Sepsis, unspecified organism
[2021-02-10] MEDS: QUEtiapine FUMARATE 25 MG TABLET PO SCH (19:22)
[2021-02-10 19:28] LABS: Partial Thromboplastin Ratio 1.8
[2021-02-10 19:36] LABS: Partial Thromboplastin Time 46.4 Seconds (21.0-31.0)
--- NOTE | 2021-02-11 05:43 | Surgery Progress Note ---
Date of Service February 11, 2021 Assessment & Plan (1) SBO (small bowel obstruction): Plan: Patient is status post exploratory laparotomy with lysis of adhesions on 01/29/[address] Cabrera Continue analgesics Continue diet as tolerated We will discontinue TPN once oral intake is deemed to be adequate. Patient suffered a pulmonary embolism following surgery Lower extremity venous Dopplers did not demonstrate any evidence of DVT continue heparin drip; this can be discontinued once INR is 2.0 or greater Continue Coumadin Today her INR is only 1.0. We will plan on stopping heparin once her INR is 2.0 or greater Plan is for [facility] prior to return home once bed available Admission and Anticipated Discharge Date Admission Date: January 29, 2021 Supervising Physician Co-Signing Physician Notes PNT S&E, agree with above. s/p exlap with return of bowel function. still weak, on tpn and PT, but feels better today. Waiting rehab placement. No changes. Subjective Patient is resting comfortably in bed. She notes that she is tolerating oral intake without nausea, vomiting, or worsening abdominal pain. She notes she is having bowel movements. She does not report any complaints this morning. Physical Exam Gastrointestinal (Abdomen): Abdomen is soft, nondistended. Patient has appropriate tenderness at her surgical incision. Her incision is noted to be clean, dry, intact. Bowel sounds are present. Results & Data ([facility]) Vital Signs (Past 12 Hours) Vital Signs Temp Pulse Pulse Resp BP Pulse Ox 02/11/21 04:52 36.6 C 90 16 136/71 94 02/10/21 23:26 37.3 C 90 16 132/79 95 02/10/21 20:39 36.9 C 90 16 122/69 93 PG Care Time/CCT Total # of Minutes Spent Total Time Spent with Patient: Total time spent is greater than 50% in coordination of care (as documented) at patient's floor/unit and/or counseling patient: Coding Level of Care Code None Diagnoses SBO (small bowel obstruction) K56.609
[2021-02-11] MEDS: FAMOTIDINE 20 MG in SYRINGE 3 ML IV SCH (07:56)
[2021-02-11] MEDS: SENNOSIDES 8.8 MG/5 ML UDC PO SCH ×3 (07:56→21:11)
[2021-02-11] MEDS: predniSONE 10 MG TABLET NG SCH (07:56)
[2021-02-11 08:54] LABS: Basophils # (auto) 0.02 K/uL (0-0.2); Basophils % (auto) 0.3 %; Eosinophils # (auto) 0.18 K/uL (0-0.5); Eosinophils % (auto) 2.3 %; Hematocrit (blood only) 27.3 % (37-47); Hemoglobin 8.7 g/dL (12.0-16.0); Immature Granulocytes # (auto) 0.01 K/uL (0.00-0.02); Immature Granulocytes % (auto) 0.1 %; Lymphocytes # (auto) 1.27 K/uL (1.2-3.4); Lymphocytes % (auto) 16.1 %; Mean Corpuscular Hgb Conc 31.9 g/dL (32-36); Mean Corpuscular Volume 94.1 fL (80-100); Mean Platelet Volume 10.5 fL (7.4-10.4); Monocytes # (auto) 0.63 K/uL (0.11-0.59); Neutrophils # (auto) 5.76 K/uL (1.4-6.5); Neutrophils % (auto) 73.2 %; Platelet Count 263 K/uL (130-400); RDW Coefficient of Variation 15.5 % (11.5-14.5); RDW Standard Deviation 53.2 fL (36.4-46.3); White Blood Count 7.87 K/uL (4.8-10.8)
[2021-02-11 09:04] LABS: Prothrombin Time 10.5 Seconds (9.0-12.0)
[2021-02-11 09:11] LABS: BUN Creatinine Ratio 28.9 (10-20); Calcium 8.2 mg/dl (8.5-10.1); Creatinine Clr Calc Pharmacy 36.2 ml/min; Est GFR (Non-African American) 56.1 ml/min; Magnesium 2.1 mg/dl (1.8-2.4); Phosphorus 4.5 mg/dl (2.5-4.9); Potassium 3.8 mmol/L (3.5-5.1)
[2021-02-11] MEDS ORDERED: WARFARIN SOD 2.5 MG TAB PO STA (11:04)
[2021-02-11] MEDS: HEPARIN SODIUM/DEXTROSE 25,000 UNITS/500 ML BAG IV SCH (15:43)
[2021-02-11] MEDS: WARFARIN SOD 2.5 MG TAB PO SCH (15:50)
[2021-02-11] MEDS ORDERED: TPN IV SCH (16:00)
[2021-02-11] MEDS ORDERED: CENTRAL PN IV SCH (16:00)
--- NOTE | 2021-02-11 16:37 | Hospitalist Progress Note ---
Date of Service February 11, 2021 Assessment & Plan (1) Anemia: Plan: Ashia is a 70-year-old female with a past medical history of restrictive lung disease who presented with tachycardia and hypotension with concern for bowel perforation and who was admitted for concern of potential bowel perforation and he was noted to have pulmonary embolism on 02/01. Acute blood loss anemia 2/2 postsurgical losses with anticoagulation Received 2 units of packed red blood cells with appropriate rise CT A/P 02/03/2021 acute left rectus sheath hematoma measures 6.2 x 4.1 x 16.6 cm. Fluid and hemorrhage is also noted within the ventral midline abdominal wall incision. Mild associated pelvic hemoperitoneum. -Heparin initially stopped in the setting of anemia, restarted when hemoglobin stabilized 02/06 hemoglobin continued to downtrend 9.8->8.7 with BP 103/53 and uptrending tachycardic. Discussed with surgery. Concern for continued bleeding, heparin held. Hemoglobin again uptrending? Daily variance, repeat CBC pending. Hematology consulted for ongoing anticoagulation recommendations. On clinical exam hematoma soft, nontender, does not appear clinically worsened. - Discussed w/ heme. high risk PE, deferring anticoagulation is not a good option. Given stable clinical picture and uptrending hgb resume low dose heparin + very slow warfarin titration. Could consider warfarin without complete bridge (low risk of necrosis). Will resume heparin and initiate very slow warfarin titration, Hgb [id number] checks, continue warfarin uptitration and hep low dose. Slight hemoglobin dipped, within the realm of lab variance. Would continue with anticoagulation unless signs of clinical bleeding develop, hemoglobin decreases less than 8, or hemodynamic instability develops. Transfusion threshold hemoglobin 7.0 Suspect patient would benefit from IV iron infusion, but concern for infection risk with recent surgery and coadministration with TPN [facility] once anticoagulated/therapeutic (2) Acute delirium: Plan: Pt has developed delerium in the post operative setting/ ICU delirium, improved once had a better night sleep, seems to have paradoxical affect from ativan, using haldol and added some seroquel hs -Patient intermittently delirious/somnilent. Appropriate and alert today. No fevers last 24 hours. no obvious infectious source, no leukocytosis, chest x-ray without consolidation, UA not infected appearing Mental status appears greatly improved last 24-48 hours, no delirium appreciated at bedside visit 02/10 (3) Pulmonary embolism: Plan: 02/01 found to have PE - CTA: Bilateral segmental/subsegmental pulmonary emboli. No evidence for right- sided heart strain. Trace bilateral pleural effusions. Small amount of pneumoperitoneum is again noted. This is nonspecific but may be due to the recent postoperative change. - Anticoagulation resumed as noted above. Pursuing gradual titration (4) Sepsis: Plan: -Admitted 01/29 with hypotensive with BP 78/54 with Lactic 3.5, BUN/Cr 59/3.6 (baseline Cr ~1) WBC 14.4k -concerns for bowel perforation on imaging following n/v with reported 4 garbage cans full of vomit. -CTAP with excessive pneumatosis of multiple small bowel loops with small amount of associated pneumoperitoneum. Although pneumatosis is nonspecific, the findings are highly suggestive of small bowel ischemia with bowel perforation. Surgical consultation was obtained - - s/p Exploratory laparotomy with lysis of adhesions 01/29/[address] Cabrera - Sepsis suspected 2nd to Hypovolemic Shock -Improving, diet per surgery. Progressing, remains on TPN for few more days per surgery (5) Elevated troponin: Plan: suspect 2nd to demand/hypovolemic shock as above associated with sepsis No CP reported EKG stable from prior Dec 2019, PACs no longer present Trending down --.> 2nd to demand from hypovolemic shock No CP/SOB reported Continued monitoring on telemetry (6) Hypovolemic shock: Plan: resolved (7) TAB (acute kidney injury): Plan: resolved (8) Bowel perforation: Plan: concerns for as above given imaging with description of pneumatosis of the small bowel with small amount of pneumoperitoneum. Into the OR but no perforation seen (9) Chronic obstructive asthma: Plan: continue home inhaler regimen incentive spirometer no sob/wheezing on exam supplemental O2 as above and encouraging incentive spirometery (10) Mixed connective tissue disease: Plan: plaquenil on hold Follows with [facility] Initially on stress dose hydrocortisone 50 mg IV twice daily, transitioned back to prednisone 10 mg daily home dosing (11) DVT prophylaxis: Plan: See heparin GTT notes above, slow warfarin titration Admission and Anticipated Discharge Date Admission Date: January 29, 2021 Subjective Seen at the bedside, patient remains clinically well. No change in clinical status, no abdominal pain. No clinical signs of bleeding, no lightheadedness/dizziness. Feels her surgical site is well-healing. No chest pain, chest pressure. Review of Systems Review of Systems: All systems reviewed & are unremarkable except as noted in Subjective Physical Exam Physical Exam: General: A&O. NAD. Cooperative. Follows 1 and 2 step commands. HEENT: Atraumatic, normocephalic. Visual acuity and hearing grossly intact. Pulm: CTAB A&P. -wheezes, -rales, -rhonchi. Symmetrical chest rise. No increase work of breathing. No respiratory distress. Cardiac: RRR, -mrg. Radial pulses intact and symmetrical. Abdominal: Postsurgical incision C/D/I. Appropriate postsurgical tenderness overlying surgical incisions, otherwise abdomen soft, without rebound tenderness, without guarding. BS intact. Results & Data Results & Data ([facility]) Vital Signs (Past 12 Hours) Vital Signs Temp Pulse Pulse Resp BP Pulse Ox 02/11/21 16:00 95 H 02/11/21 15:00 37.0 C 89 18 133/71 95 02/11/21 11:59 36.8 C 99 H 16 131/75 95 02/11/21 08:00 36.5 C 89 93 H 18 112/68 94 02/11/21 04:52 36.6 C 90 16 136/71 94 PG Care Time/CCT Total # of Minutes Spent Total Time Spent with Patient: Total time spent is greater than 50% in coordination of care (as documented) at patient's floor/unit and/or counseling patient: Coding Level of Care Code 68739 Subseq Hosp Care Lvl 3 Diagnoses Anemia D64.9 Acute delirium R41.0 Pulmonary embolism I26.99 Sepsis A41.9 Sepsis acute organ dysfunction status: unspecified Sepsis type: sepsis due to unspecified organism Elevated troponin R77.8 Hypovolemic shock R57.1 TAB (acute kidney injury) N17.9 Bowel perforation K63.1 Chronic obstructive asthma J44.9 Mixed connective tissue disease M35.1 DVT prophylaxis Z29.9 (1) Sepsis Sepsis acute organ dysfunction status: unspecified Sepsis type: sepsis due to unspecified organism Qualified Code(s): A41.9 - Sepsis, unspecified organism
[2021-02-11] MEDS: QUEtiapine FUMARATE 25 MG TABLET PO SCH (21:09)
[2021-02-12 07:05] LABS: Basophils # (auto) 0.01 K/uL (0-0.2); Basophils % (auto) 0.1 %; Eosinophils # (auto) 0.21 K/uL (0-0.5); Eosinophils % (auto) 2.3 %; Hematocrit (blood only) 27.5 % (37-47); Hemoglobin 8.8 g/dL (12.0-16.0); Immature Granulocytes # (auto) 0.02 K/uL (0.00-0.02); Immature Granulocytes % (auto) 0.2 %; Lymphocytes # (auto) 1.93 K/uL (1.2-3.4); Lymphocytes % (auto) 21.4 %; Mean Corpuscular Hemoglobin 30.1 pg (25-34); Mean Corpuscular Volume 94.2 fL (80-100); Mean Platelet Volume 10.8 fL (7.4-10.4); Monocytes # (auto) 0.65 K/uL (0.11-0.59); Monocytes % (auto) 7.2 %; Neutrophils # (auto) 6.18 K/uL (1.4-6.5); Neutrophils % (auto) 68.8 %; Platelet Count 285 K/uL (130-400); RDW Coefficient of Variation 15.7 % (11.5-14.5); RDW Standard Deviation 54.2 fL (36.4-46.3); Red Blood Count 2.92 M/uL (4.2-5.4)
[2021-02-12 07:17] LABS: INR 1.1 (0.9-1.1)
[2021-02-12 08:11] LABS: BUN Creatinine Ratio 27.8 (10-20); Calcium 8.5 mg/dl (8.5-10.1); Creatinine Clr Calc Pharmacy 38.5 ml/min; Est GFR (African American) 67.4 ml/min; Est GFR (Non-African American) 58.1 ml/min; Magnesium 2.2 mg/dl (1.8-2.4); Potassium 4.5 mmol/L (3.5-5.1)
[2021-02-12] MEDS: predniSONE 10 MG TABLET NG SCH (08:19)
[2021-02-12] MEDS: FAMOTIDINE 20 MG in SYRINGE 3 ML IV SCH (08:19)
--- NOTE | 2021-02-12 08:48 | Surgery Progress Note ---
Date of Service February 12, 2021 Assessment & Plan (1) SBO (small bowel obstruction): Plan: She seems to be eating more On 50% TPN and I think we should stop today Currently on IV heparin and warfarin per medical team We will remove all ninoska I would prefer to keep her PICC line for 2 weeks in case we need to use it [facility] to [facility]-today or tomorrow Admission and Anticipated Discharge Date Admission Date: January 29, 2021 Results & Data ([facility]) Vital Signs (Past 12 Hours) Vital Signs Temp Pulse Pulse Pulse Resp BP Pulse Ox 02/12/21 08:29 36.6 C 90 14 94/63 L 93 02/12/21 04:25 36.9 C 92 H 16 110/66 92 02/12/21 00:07 36.6 C 86 16 146/72 H 96 02/11/21 23:06 81 PG Care Time/CCT Total # of Minutes Spent Total Time Spent with Patient: Total time spent is greater than 50% in coordination of care (as documented) at patient's floor/unit and/or counseling patient: Coding Level of Care Code None Diagnoses SBO (small bowel obstruction) K56.609
[2021-02-12] MEDS: SENNOSIDES 8.8 MG/5 ML UDC PO SCH ×3 (09:51→20:35)
[2021-02-12] MEDS: HEPARIN SODIUM/DEXTROSE 25,000 UNITS/500 ML BAG IV SCH ×2 (15:33→17:26)
[2021-02-12] MEDS ORDERED: WARFARIN SOD 2 MG TAB PO ONE (16:00)
[2021-02-12] MEDS: WARFARIN SOD 2.5 MG TAB PO SCH (17:10)
[2021-02-12] MEDS: QUEtiapine FUMARATE 25 MG TABLET PO SCH ×2 (20:12→20:16)
--- NOTE | 2021-02-13 04:35 | Hospitalist Progress Note ---
Date of Service February 12, 2021 Assessment & Plan (1) Anemia: Plan: Acute blood loss anemia 2nd postsurgical losses as well as development of rectus sheath hematoma in setting of anticoagulation for PEs. s/p 2 units PRBCs earlier this stay. H/H stable over the last few days. Repeat cbc in am. (2) Rectus sheath hematoma: Plan: as seen on 02/03 CT abd/pelvis. spontaneous - occurred in setting of therapeutic anticoagulation for PEs. anticoagulation was briefly stopped earlier this stay due to #1, and then resumed cautiously and slowly. H/H stable over the last few days suggesting the hematoma is no longer enlarging. (3) Acute delirium: Plan: ICU psychosis/metabolic encephalopathy. resolved. remains on seroquel at HS and tolerating such. (4) Pulmonary embolism: Plan: dx 02/01. no DVT on LE dopplers. remains on heparin infusion with coumadin. coumadin initiated on 02/08 at 2.5mg daily. despite such there has been little rise in her INR. give additional 2mg today for total of 4.5mg. INR in am. explained to patient that the rise in INR takes time and that this is what is keeping her hospitalized at this time. (5) Sepsis: Plan: "abdominal sepsis" - present on admission. at time of admission she had CT evidence of suspected small bowel ischemia with bowel perforation. taken emergently to OR on 01/29 - s/p ex lap with LOS by Dr Cabrera. No bowel perf found fortunately. 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 (6) Elevated troponin: Plan: 2nd to myocardial demand ischemia in setting of #5. no ACS. (7) Hypovolemic shock: Plan: present on admission. 2nd to "abdominal sepsis." resolved. (8) TAB (acute kidney injury): Plan: resolved was 2nd to ATN creatinine now normal (9) Bowel perforation: Plan: ruled out at time of ex lap on 01/[address] Cabrera (10) Chronic obstructive asthma: Plan: continue home inhaler regimen incentive spirometer no issues at this time (11) Mixed connective tissue disease: Plan: plaquenil on hold Follows with Dr. Kyle at [facility] received stress dose steroids early in her hospitalization - now back to chronic prednisone dose of 10mg/day (12) DVT prophylaxis: Plan: heparin drip Plan: if frequent stooling continues - check cdiff FEN - TPN has been d/c; now on low fiber diet & tolerating sister updated at bedside cont PT/OT Admission and Anticipated Discharge Date Admission Date: January 29, 2021 Subjective patient frustrated that she has to remain hospitalized we had lengthy discussion about needing to stay while waiting for INR to >2 we discussed her rectus sheath hematoma from earlier this stay that is necessitating a "slow-go" on the anticoagulation she reports frequent stooling - about 3x's/day no abd pain tolerating diet but appetite fair at best she is in a double room and is concerned about overall COVID risk in the hospital Review of Systems Review of Systems: gen - mild fatigue, mild anorexia CV - no cp, no orthopnea pulm - no dyspnea GI - no N/V Physical Exam Physical Exam: gen - thin, NAD mouth - mmm, no thrush neck - no JVD heart - RRR, s1 s2 lungs - CTA b/l, mild rales L base abd - soft, no tenderness, mild firmness throughout the abdomen, incision c/d/i ext - no edema, pulses 2+ b/l Results & Data Results & Data ([facility]) Vital Signs (Past 12 Hours) Vital Signs Temp Pulse Pulse Pulse Resp BP Pulse Ox 02/13/21 03:33 36.4 C L 90 16 126/69 95 02/13/21 00:09 36.4 C L 84 18 114/64 95 02/12/21 23:59 84 02/12/21 19:07 36.8 C 85 17 129/71 93 Laboratory Results Laboratory Results - last 24 hr 02/12/21 02/12/21 02/12/21 06:41 06:41 06:41 WBC 9.00 RBC 2.92 L Hgb 8.8 L Hct 27.5 L MCV 94.2 MCH 30.1 MCHC 32.0 RDW Std Deviation 54.2 H RDW Coeff of Bo 15.7 H Plt Count 285 MPV 10.8 H Immature Gran % (Auto) 0.2 Neut % (Auto) 68.8 Lymph % (Auto) 21.4 Runnels % (Auto) 7.2 Eos % (Auto) 2.3 Baso % (Auto) 0.1 Neut # (Auto) 6.18 Lymph # (Auto) 1.93 Runnels # (Auto) 0.65 H Eos # (Auto) 0.21 Baso # (Auto) 0.01 Immature Gran # (Auto) 0.02 PT 11.0 INR 1.1 APTT PTT Ratio Sodium 139 Potassium 4.5 D Chloride 108 H Carbon Dioxide 27 Anion Gap 5.0 BUN 27 H Creatinine 0.99 Est Cr Clr Drug Dosing 38.5 Est GFR ( Amer) 67.4 Est GFR (Non-Af Amer) 58.1 BUN/Creatinine Ratio 27.8 H Glucose 84 Calcium 8.5 Phosphorus 4.0 Magnesium 2.2 02/12/21 06:41 WBC RBC Hgb Hct MCV MCH MCHC RDW Std Deviation RDW Coeff of Bo Plt Count MPV Immature Gran % (Auto) Neut % (Auto) Lymph % (Auto) Runnels % (Auto) Eos % (Auto) Baso % (Auto) Neut # (Auto) Lymph # (Auto) Runnels # (Auto) Eos # (Auto) Baso # (Auto) Immature Gran # (Auto) PT INR APTT 53.0 H* PTT Ratio 2.0 Sodium Potassium Chloride Carbon Dioxide Anion Gap BUN Creatinine Est Cr Clr Drug Dosing Est GFR ( Amer) Est GFR (Non-Af Amer) BUN/Creatinine Ratio Glucose Calcium Phosphorus Magnesium PG Care Time/CCT Total # of Minutes Spent Total Time Spent with Patient: Total time spent is greater than 50% in coordination of care (as documented) at patient's floor/unit and/or counseling patient: Coding Level of Care Code 07857 Subseq Hosp Care Lvl 3 Diagnoses Anemia D64.9 Acute delirium R41.0 Pulmonary embolism I26.99 Sepsis A41.9 Sepsis acute organ dysfunction status: unspecified Sepsis type: sepsis due to unspecified organism Elevated troponin R77.8 Hypovolemic shock R57.1 TAB (acute kidney injury) N17.9 Bowel perforation K63.1 Chronic obstructive asthma J44.9 Mixed connective tissue disease M35.1 DVT prophylaxis Z29.9 Rectus sheath hematoma S30.1XXA (1) Sepsis Sepsis acute organ dysfunction status: unspecified Sepsis type: sepsis due to unspecified organism Qualified Code(s): A41.9 - Sepsis, unspecified organism
[2021-02-13 06:02] LABS: Basophils # (auto) 0.02 K/uL (0-0.2); Basophils % (auto) 0.3 %; Eosinophils # (auto) 0.16 K/uL (0-0.5); Eosinophils % (auto) 2.2 %; Hematocrit (blood only) 28.5 % (37-47); Hemoglobin 9.1 g/dL (12.0-16.0); Immature Granulocytes # (auto) 0.01 K/uL (0.00-0.02); Immature Granulocytes % (auto) 0.1 %; Lymphocytes # (auto) 1.71 K/uL (1.2-3.4); Lymphocytes % (auto) 23.5 %; Mean Corpuscular Hemoglobin 30.3 pg (25-34); Mean Corpuscular Hgb Conc 31.9 g/dL (32-36); Mean Platelet Volume 10.5 fL (7.4-10.4); Monocytes # (auto) 0.55 K/uL (0.11-0.59); Monocytes % (auto) 7.6 %; Neutrophils # (auto) 4.82 K/uL (1.4-6.5); Neutrophils % (auto) 66.3 %; Platelet Count 295 K/uL (130-400); RDW Standard Deviation 54.3 fL (36.4-46.3); White Blood Count 7.27 K/uL (4.8-10.8)
[2021-02-13 06:09] LABS: INR 1.2 (0.9-1.1); Prothrombin Time 11.9 Seconds (9.0-12.0)
[2021-02-13 07:37] LABS: Partial Thromboplastin Ratio 2.7
[2021-02-13 07:48] LABS: Partial Thromboplastin Time 71.3 Seconds (21.0-31.0)
[2021-02-13] MEDS: FAMOTIDINE 20 MG in SYRINGE 3 ML IV SCH (09:03)
[2021-02-13] MEDS: predniSONE 10 MG TABLET NG SCH (09:04)
[2021-02-13] MEDS: SENNOSIDES 8.8 MG/5 ML UDC PO SCH ×2 (09:04→22:45)
--- NOTE | 2021-02-13 12:48 | Surgery Progress Note ---
Date of Service February 13, 2021 Assessment & Plan (1) SBO (small bowel obstruction): Plan: INR 1.2 today, waiting for therapeutic level seen by PT, now plans to return home Admission and Anticipated Discharge Date Admission Date: January 29, 2021 Subjective no complaints, ambulating halls with family, tolerating diet Physical Exam Gastrointestinal (Abdomen): Inspection/Auscultation: + abdominal surgical incision (new dressing applied recently); abdomen not distended Percussion/Palpation: abdomen soft Results & Data ([facility]) Vital Signs (Past 12 Hours) Vital Signs Temp Pulse Pulse Resp BP Pulse Ox 02/13/21 11:45 37.0 C 89 16 121/59 L 98 02/13/21 08:00 84 02/13/21 07:55 36.7 C 90 16 119/65 95 02/13/21 03:33 36.4 C L 90 16 126/69 95 PG Care Time/CCT Total # of Minutes Spent Total Time Spent with Patient: Total time spent is greater than 50% in coordination of care (as documented) at patient's floor/unit and/or counseling patient: Coding Level of Care Code None Diagnoses SBO (small bowel obstruction) K56.609
[2021-02-13 15:31] LABS: Partial Thromboplastin Ratio 2.2
[2021-02-13 15:34] LABS: Partial Thromboplastin Time 58.7 Seconds (21.0-31.0)
[2021-02-13] MEDS: WARFARIN SOD 2.5 MG TAB PO SCH (16:26)
[2021-02-13] MEDS ORDERED: WARFARIN SOD 2.5 MG TAB PO ONE (18:17)
[2021-02-13] MEDS: HEPARIN SODIUM/DEXTROSE 25,000 UNITS/500 ML BAG IV SCH (19:25)
--- NOTE | 2021-02-13 21:46 | Hospitalist Progress Note ---
Date of Service February 13, 2021 Assessment & Plan (1) Anemia: Plan: Acute blood loss anemia 2nd postsurgical losses as well as development of rectus sheath hematoma in setting of anticoagulation for PEs. s/p 2 units PRBCs earlier this stay. H/H stable over the last few days. Repeat H/H am. (2) Rectus sheath hematoma: Plan: as seen on 02/03 CT abd/pelvis. spontaneous - occurred in setting of therapeutic anticoagulation for PEs. anticoagulation was briefly stopped earlier this stay due to #1, and then resumed cautiously and slowly. H/H stable over the last few days suggesting the hematoma is no longer enlarging. repeat H/H in am. (3) Acute delirium: Plan: ICU psychosis/metabolic encephalopathy. resolved. remains on seroquel at HS and tolerating such. (4) Pulmonary embolism: Plan: dx 02/01. no DVT on LE dopplers. remains on heparin infusion with coumadin. coumadin initiated on 02/08 at 2.5mg daily. despite such there has been little rise in her INR. give additional 2.5mg today for total of 5mg. INR in am. will need 2 days of "overlap" therapy once INR is 2 or more. (5) Sepsis: Plan: "abdominal sepsis" - present on admission. resolved. at time of admission she had CT evidence of suspected small bowel ischemia with bowel perforation. taken emergently to OR on 01/29 - s/p ex lap with LOS by Dr Cabrera. No bowel perf found fortunately. 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 (6) Elevated troponin: Plan: 2nd to myocardial demand ischemia in setting of #5. no ACS. (7) Hypovolemic shock: Plan: present on admission. 2nd to "abdominal sepsis." resolved. (8) TAB (acute kidney injury): Plan: resolved was 2nd to ATN creatinine now normal (9) Bowel perforation: Plan: ruled out at time of ex lap on 01/[address] Cabrera tolerating low fiber diet (10) Chronic obstructive asthma: Plan: continue home inhaler regimen incentive spirometer no issues at this time (11) Mixed connective tissue disease: Plan: plaquenil on hold previously; ok to resume per surgery Follows with Dr. 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) Vital Signs (Past 12 Hours) Vital Signs Temp Pulse Pulse Resp BP Pulse Ox 02/13/21 18:22 36.6 C 62 16 121/82 90 02/13/21 16:48 36.4 C L 94 H 14 110/6 L 97 02/13/21 16:00 77 02/13/21 11:45 37.0 C 89 16 121/59 L 98 Laboratory Results Laboratory Results - last 24 hr 02/13/21 02/13/21 02/13/21 05:42 05:42 05:42 WBC 7.27 RBC 3.00 L Hgb 9.1 L Hct 28.5 L MCV 95.0 MCH 30.3 MCHC 31.9 L RDW Std Deviation 54.3 H RDW Coeff of Bo 16.0 H Plt Count 295 MPV 10.5 H Immature Gran % (Auto) 0.1 Neut % (Auto) 66.3 Lymph % (Auto) 23.5 Clinch % (Auto) 7.6 Eos % (Auto) 2.2 Baso % (Auto) 0.3 Neut # (Auto) 4.82 Lymph # (Auto) 1.71 Clinch # (Auto) 0.55 Eos # (Auto) 0.16 Baso # (Auto) 0.02 Immature Gran # (Auto) 0.01 PT 11.9 INR 1.2 H APTT 71.3 H* PTT Ratio 2.7 02/13/21 14:48 WBC RBC Hgb Hct MCV MCH MCHC RDW Std Deviation RDW Coeff of Bo Plt Count MPV Immature Gran % (Auto) Neut % (Auto) Lymph % (Auto) Clinch % (Auto) Eos % (Auto) Baso % (Auto) Neut # (Auto) Lymph # (Auto) Clinch # (Auto) Eos # (Auto) Baso # (Auto) Immature Gran # (Auto) PT INR APTT 58.7 H* PTT Ratio 2.2 PG Care Time/CCT Total # of Minutes Spent Total Time Spent with Patient: Total time spent is greater than 50% in coordination of care (as documented) at patient's floor/unit and/or counseling patient: Coding Level of Care Code 80542 Subseq Hosp Care Lvl 2 Diagnoses Anemia D64.9 Rectus sheath hematoma S30.1XXA Acute delirium R41.0 Pulmonary embolism I26.99 Sepsis A41.9 Sepsis acute organ dysfunction status: unspecified Sepsis type: sepsis due to unspecified organism Elevated troponin R77.8 Hypovolemic shock R57.1 TAB (acute kidney injury) N17.9 Bowel perforation K63.1 Chronic obstructive asthma J44.9 Mixed connective tissue disease M35.1 DVT prophylaxis Z29.9 (1) Sepsis Sepsis acute organ dysfunction status: unspecified Sepsis type: sepsis due to unspecified organism Qualified Code(s): A41.9 - Sepsis, unspecified organism
[2021-02-13] MEDS: QUEtiapine FUMARATE 25 MG TABLET PO SCH (22:45)
[2021-02-14 06:40] LABS: Hematocrit (blood only) 26.4 % (37-47); Hemoglobin 8.5 g/dL (12.0-16.0)
[2021-02-14 07:00] LABS: INR 1.3 (0.9-1.1); Partial Thromboplastin Ratio 3.2
[2021-02-14 07:03] LABS: Partial Thromboplastin Time 83.1 Seconds (21.0-31.0)
[2021-02-14 07:05] LABS: BUN Creatinine Ratio 23.6 (10-20); Calcium 8.5 mg/dl (8.5-10.1); Creatinine Clr Calc Pharmacy 30.8 ml/min; Est GFR (African American) 52.9 ml/min; Est GFR (Non-African American) 45.6 ml/min
--- NOTE | 2021-02-14 07:20 | Surgery Progress Note ---
Date of Service February 14, 2021 Assessment & Plan (1) History of laparotomy: Plan: History of malnutrition and PE Currently on Coumadin and heparin-heparin decreased secondary to high PTT Patient off TPN and on regular low fiber diet, she is taking no pain medication All ninoska are removed with dressing in place Plan is for discharge home-on Coumadin, she would need a visiting nurse to flush her PICC line I prefer to keep the PICC line for 2 weeks in case we need it Ready for discharge when INR appropriate Admission and Anticipated Discharge Date Admission Date: January 29, 2021 Results & Data ([place]) Vital Signs (Past 12 Hours) Vital Signs Temp Pulse Resp BP Pulse Ox 02/13/21 23:30 36.5 C 101 H 16 111/76 100 PG Care Time/CCT Total # of Minutes Spent Total Time Spent with Patient: Total time spent is greater than 50% in coordination of care (as documented) at patient's floor/unit and/or counseling patient: Coding Level of Care Code None Diagnoses History of laparotomy Z98.890
[2021-02-14] MEDS: predniSONE 10 MG TABLET NG SCH (10:41)
[2021-02-14] MEDS: SENNOSIDES 8.8 MG/5 ML UDC PO SCH ×2 (10:49→21:32)
[2021-02-14] MEDS: HYDROXYCHLOROQUINE SULFATE 200 MG TAB PO SCH (11:15)
[2021-02-14 13:26] LABS: Partial Thromboplastin Ratio 2.4
[2021-02-14] MEDS ORDERED: WARFARIN SOD 5 MG TAB PO ONE (16:08)
[2021-02-14] MEDS: WARFARIN SOD 2.5 MG TAB PO SCH (17:37)
[2021-02-14] MEDS: QUEtiapine FUMARATE 25 MG TABLET PO SCH (21:31)
[2021-02-14] MEDS: HEPARIN SODIUM/DEXTROSE 25,000 UNITS/500 ML BAG IV SCH (21:32)
--- NOTE | 2021-02-15 06:53 | Surgery Progress Note ---
Date of Service February 15, 2021 Assessment & Plan (1) History of laparotomy: Plan: Patient with no acute changes Stable from a surgical standpoint Adjusting warfarin/heparin Discharge home with visiting nurse when INR appropriate Follow-up in office in 2 to 3 weeks Admission and Anticipated Discharge Date Admission Date: January 29, 2021 Results & Data ([facility]) Vital Signs (Past 12 Hours) Vital Signs Temp Pulse Resp BP Pulse Ox 02/14/21 22:51 36.7 C 74 15 137/80 95 PG Care Time/CCT Total # of Minutes Spent Total Time Spent with Patient: Total time spent is greater than 50% in coordin ation of care (as documented) at patient's floor/unit and/or counseling patient: Coding Level of Care Code None Diagnoses History of laparotomy Z98.890
[2021-02-15 09:44] LABS: INR 1.6 (0.9-1.1); Prothrombin Time 15.7 Seconds (9.0-12.0)
[2021-02-15] MEDS: predniSONE 10 MG TABLET NG SCH (09:45)
[2021-02-15] MEDS: HYDROXYCHLOROQUINE SULFATE 200 MG TAB PO SCH (09:45)
[2021-02-15] MEDS: SENNOSIDES 8.8 MG/5 ML UDC PO SCH ×2 (09:45→19:55)
[2021-02-15 10:26] LABS: Partial Thromboplastin Time 78.9 Seconds (21.0-31.0)
[2021-02-15] MEDS ORDERED: WARFARIN SOD 5 MG TAB PO SCH (16:00)
[2021-02-15 16:41] LABS: Partial Thromboplastin Ratio 2.7
[2021-02-15 16:59] LABS: Partial Thromboplastin Time 71.5 Seconds (21.0-31.0)
[2021-02-15] MEDS ORDERED: predniSONE 20 MG TAB PO STA (19:39)
[2021-02-15] MEDS: QUEtiapine FUMARATE 25 MG TABLET PO SCH (21:16)
--- NOTE | 2021-02-15 21:28 | Hospitalist Progress Note ---
Date of Service February 15, 2021 Assessment & Plan (1) Anemia: Plan: Acute blood loss anemia 2nd postsurgical losses as well as development of rectus sheath hematoma in setting of anticoagulation for PEs. Hematoma discovered 02/[address] s/p 2 units PRBCs earlier this stay. H/H stable over the last few days. Repeat in 48 hours to ensure stability in the setting of heparin drip. (2) Rectus sheath hematoma: Plan: as seen on 02/03 CT abd/pelvis. spontaneous - occurred in setting of therapeutic anticoagulation for PEs. anticoagulation was briefly stopped earlier this stay due to #1, and then resu med cautiously and slowly. H/H stable. (3) Acute delirium: Plan: ICU psychosis/metabolic encephalopathy. resolved. remains on seroquel at HS and tolerating such. consider d/c of seroquel - could be contributing to fatigue. (4) Pulmonary embolism: Plan: dx 02/01. no DVT on LE dopplers. remains on heparin infusion with coumadin. coumadin initiated on 02/08 at 2.5mg daily. despite such there has been little rise in her INR. gave 7.5mg of coumadin yesterday. give 5mg of coumadin today. INR am. will need 2 days of "overlap" therapy once INR is 2 or more. (5) Sepsis: Plan: "abdominal sepsis" - present on admission. resolved. at time of admission she had CT evidence of suspected small bowel ischemia with bowel perforation. taken emergently to OR on 01/29 - s/p ex lap with LOS by Dr Cabrera. No bowel perf found fortunately. 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 (6) Elevated troponin: Plan: 2nd to myocardial demand ischemia in setting of #5. no ACS. (7) Hypovolemic shock: Plan: present on admission. 2nd to "abdominal sepsis." resolved. (8) TAB (acute kidney injury): Plan: resolved was 2nd to ATN creatinine now normal (9) Bowel perforation: Plan: ruled out at time of ex lap on 01/[address] Cabrera tolerating low fiber diet (10) Chronic obstructive asthma: Plan: continue home inhaler regimen (11) Mixed connective tissue disease: Plan: cont plaquenil cont prednisone 10mg daily Follows with Dr. Kyle at [facility] received stress dose steroids early in her hospitalization - now back to chronic prednisone dose of 10mg/day fatigue - could she use additional steroids? will give 20mg of additional prednisone today reassess response to such tomorrow (12) DVT prophylaxis: Plan: heparin drip Plan: cont PT/OT if fatigue persists consider d/c of seroquel, check u/a and urine cx to r/o UTI, etc Admission and Anticipated Discharge Date Admission Date: January 29, 2021 Subjective no issues overnight she c/o fatigue she is bored and is hoping for d/c soon appetite fair at best still w/ loose stool no abd pain no dyspnea Review of Systems Review of Systems: gen- no fevers cv- no cp or orthopnea pulm- no cough or dyspnea GI- no N/V Physical Exam Physical Exam: gen - thin, NAD, looks tired mouth - mmm, no thrush neck - no JVD heart - RRR, s1 s2 lungs - CTA b/l abd - soft, no tenderness, mild firmness throughout the abdomen, incision c/d/i in the midline ext - no edema, pulses 2+ b/l psych - a/o x 3 but restricted affect Results & Data Results & Data ([facility]) Vital Signs (Past 12 Hours) Vital Signs Temp Pulse Resp BP Pulse Ox 02/15/21 15:31 36.8 C 85 16 100/66 95 02/15/21 11:16 37.0 C 88 16 116/65 96 Laboratory Results Laboratory Results - last 24 hr 02/15/21 02/15/21 02/15/21 08:56 08:56 16:06 PT 15.7 H INR 1.6 H APTT 78.9 H* 71.5 H* PTT Ratio 3.0 2.7 PG Care Time/CCT Total # of Minutes Spent Total Time Spent with Patient: Total time spent is greater than 50% in coordination of care (as documented) at patient's floor/unit and/or counseling patient: Coding Level of Care Code 69057 Subseq Hosp Care Lvl 2 Diagnoses Anemia D64.9 Rectus sheath hematoma S30.1XXA Acute delirium R41.0 Pulmonary embolism I26.99 Sepsis A41.9 Sepsis acute organ dysfunction status: unspecified Sepsis type: sepsis due to unspecified organism Elevated troponin R77.8 Hypovolemic shock R57.1 TAB (acute kidney injury) N17.9 Bowel perforation K63.1 Chronic obstructive asthma J44.9 Mixed connective tissue disease M35.1 DVT prophylaxis Z29.9 (1) Sepsis Sepsis acute organ dysfunction status: unspecified Sepsis type: sepsis due to unspecified organism Qualified Code(s): A41.9 - Sepsis, unspecified organism
[2021-02-15 22:42] LABS: Partial Thromboplastin Ratio 2.8
[2021-02-15 23:04] LABS: Partial Thromboplastin Time 72.8 Seconds (21.0-31.0)
[2021-02-16 05:20] LABS: INR 1.8 (0.9-1.1); Partial Thromboplastin Ratio 2.7; Prothrombin Time 17.2 Seconds (9.0-12.0)
[2021-02-16 06:00] LABS: Partial Thromboplastin Time 71.3 Seconds (21.0-31.0)
[2021-02-16] MEDS: HEPARIN SODIUM/DEXTROSE 25,000 UNITS/500 ML BAG IV SCH (06:01)
--- NOTE | 2021-02-16 06:51 | Surgery Progress Note ---
Date of Service February 16, 2021 Assessment & Plan (1) History of laparotomy: Plan: No acute changes Awaiting INR/heparin stabilization DC when medically okay Does not need pain medication Admission and Anticipated Discharge Date Admission Date: January 29, 2021 Results & Data ([facility]) Vital Signs (Past 12 Hours) Vital Signs Temp Pulse Resp BP Pulse Ox 02/15/21 22:20 36.8 C 83 16 114/74 96 PG Care Time/CCT Total # of Minutes Spent Total Time Spent with Patient: Total time spent is greater than 50% in coordination of care (as documented) at patient's floor/unit and/or counseling patient: Coding Level of Care Code None Diagnoses History of laparotomy Z98.890
[2021-02-16] MEDS: SENNOSIDES 8.8 MG/5 ML UDC PO SCH ×2 (08:56→21:02)
[2021-02-16] MEDS: HYDROXYCHLOROQUINE SULFATE 200 MG TAB PO SCH (08:57)
[2021-02-16] MEDS: predniSONE 10 MG TABLET NG SCH (08:57)
[2021-02-16 12:26] LABS: Partial Thromboplastin Ratio 2.2
[2021-02-16 12:31] LABS: Partial Thromboplastin Time 58.4 Seconds (21.0-31.0)
[2021-02-16] MEDS: WARFARIN SOD 7.5 MG TAB PO SCH (18:00)
[2021-02-16] MEDS ORDERED: FAMOTIDINE 20 MG in SYRINGE 3 ML IV ONE (19:00)
[2021-02-16] MEDS: CALCIUM CARBONATE 500 MG CHEWABLE TAB PO PRN (19:32)
[2021-02-16] MEDS: QUEtiapine FUMARATE 25 MG TABLET PO SCH (21:02)
--- NOTE | 2021-02-16 22:31 | Hospitalist Progress Note ---
Date of Service February 16, 2021 Assessment & Plan (1) Pulmonary embolism: Plan: dx 02/01. no DVT on LE dopplers. INR today 1.8. remains on heparin infusion with coumadin. coumadin initiated on 02/08 at 2.5mg daily. despite such there had been little rise in her INR. gave 7.5mg of coumadin 2 days ago, then 5mg yesterday, and will give 7.5mg today. INR am. will need 2 days of "overlap" therapy once INR is 2 or more. (2) Anemia: Plan: Acute blood loss anemia 2nd postsurgical losses as well as development of rectus sheath hematoma in setting of anticoagulation for PEs. Hematoma discovered 02/[address] s/p 2 units PRBCs earlier this stay. H/H stable over the last few days. Repeat H/H in am. (3) Rectus sheath hematoma: Plan: as seen on 02/03 CT abd/pelvis. spontaneous - occurred in setting of therapeutic anticoagulation for PEs. anticoagulation was briefly stopped earlier this stay due to #1, and then resumed cautiously and slowly. H/H in am for stability. (4) Acute delirium: Plan: ICU psychosis/metabolic encephalopathy. resolved. remains on seroquel at HS and tolerating such. consider d/c of seroquel - could be contributing to fatigue. (5) Sepsis: Plan: "abdominal sepsis" - present on admission. resolved. at time of admission she had CT evidence of suspected small bowel ischemia with bowel perforation. taken emergently to OR on 01/29 - s/p ex lap with LOS by Dr Cabrera. No bowel perf found fortunately. 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 (6) Elevated troponin: Plan: 2nd to myocardial demand ischemia in setting of #5. no ACS. (7) Hypovolemic shock: Plan: present on admission. 2nd to "abdominal sepsis." resolved. (8) TAB (acute kidney injury): Plan: resolved was 2nd to ATN creatinine now normal BMP in am for stability (9) Bowel perforation: Plan: ruled out at time of ex lap on 01/[address] Cabrera tolerating low fiber diet but appetite is fair at best (10) Chronic obstructive asthma: Plan: continue home inhaler regimen (11) Mixed connective tissue disease: Plan: cont plaquenil cont prednisone 10mg daily Follows with Dr. Kyle at [facility] [place] received stress dose steroids early in her hospitalization - now back to chronic prednisone dose of 10mg/day (12) DVT prophylaxis: Plan: heparin drip (13) GERD (gastroesophageal reflux disease): Plan: IV zantac x 1 tums prn then PPI once daily starting in am would keep on PPI due to chronic prednisone use Plan: cont PT/OT if fatigue persists consider d/c of seroquel, check u/a and urine cx to r/o UTI, etc Admission and Anticipated Discharge Date Admission Date: January 29, 2021 Subjective still with fatigue despite a bigger dose of prednisone yesterday also with frequent burping and heartburn today but having flatus and stool stool was starting to firm up today no abd pain Review of Systems Review of Systems: gen - fatigue but no fever cv - no cp pulm - no dyspnea GI - no N/V Physical Exam Physical Exam: gen - thin, NAD mouth - mmm, no thrush neck - no JVD heart - RRR, s1 s2 lungs - CTA b/l abd - soft, no tenderness, mild firmness throughout the abdomen (abdominal wall) ext - no edema, pulses 2+ b/l psych - a/o x 3 but restricted affect skin - no rash, mild pallor Results & Data Results & Data ([facility]) Vital Signs (Past 12 Hours) Vital Signs Temp Pulse Resp BP Pulse Ox 02/16/21 15:50 37.1 C 86 16 147/74 H 96 Laboratory Results Laboratory Results - last 24 hr 02/15/21 02/16/21 02/16/21 22:11 04:30 11:43 PT 17.2 H INR 1.8 H APTT 72.8 H* 71.3 H* 58.4 H* PTT Ratio 2.8 2.7 2.2 PG Care Time/CCT Total # of Minutes Spent Total Time Spent with Patient: Total time spent is greater than 50% in coordination of care (as documented) at patient's floor/unit and/or counseling patient: Coding Level of Care Code 14078 Subseq Hosp Care Lvl 2 Diagnoses Anemia D64.9 Rectus sheath hematoma S30.1XXA Acute delirium R41.0 Pulmonary embolism I26.99 Sepsis A41.9 Sepsis acute organ dysfunction status: unspecified Sepsis type: sepsis due to unspecified organism Elevated troponin R77.8 Hypovolemic shock R57.1 TAB (acute kidney injury) N17.9 Bowel perforation K63.1 Chronic obstructive asthma J44.9 Mixed connective tissue disease M35.1 DVT prophylaxis Z29.9 GERD (gastroesophageal reflux disease) K21.9 (1) Sepsis Sepsis acute organ dysfunction status: unspecified Sepsis type: sepsis due to unspecified organism Qualified Code(s): A41.9 - Sepsis, unspecified organism
[2021-02-17 05:32] LABS: Hematocrit (blood only) 27.4 % (37-47); Mean Corpuscular Hemoglobin 30.7 pg (25-34); Mean Corpuscular Hgb Conc 32.8 g/dL (32-36); Mean Corpuscular Volume 93.5 fL (80-100); Mean Platelet Volume 10.6 fL (7.4-10.4); Platelet Count 303 K/uL (130-400); RDW Coefficient of Variation 16.6 % (11.5-14.5); RDW Standard Deviation 56.9 fL (36.4-46.3); Red Blood Count 2.93 M/uL (4.2-5.4); White Blood Count 9.66 K/uL (4.8-10.8)
[2021-02-17 05:49] LABS: INR 2.1 (0.9-1.1); Prothrombin Time 20.3 Seconds (9.0-12.0)
[2021-02-17 05:51] LABS: Calcium 8.3 mg/dl (8.5-10.1); Est GFR (African American) 57.4 ml/min; Est GFR (Non-African American) 49.6 ml/min; Potassium 3.7 mmol/L (3.5-5.1)
[2021-02-17 06:58] LABS: Partial Thromboplastin Ratio 2.2
--- NOTE | 2021-02-17 08:06 | Surgery Progress Note ---
Date of Service February 17, 2021 Assessment & Plan (1) History of laparotomy: Plan: doing well from surgical standpoint INR 2.1 this AM...per IM need 2 days of overlap.... ? d/c home tomorrow or Friday...will d/w with IM Admission and Anticipated Discharge Date Admission Date: January 29, 2021 Subjective pt doing well. no complaints/wants to go home Physical Exam Physical Exam: soft. nt. nd. Results & Data ([facility]) Vital Signs (Past 12 Hours) Vital Signs Temp Pulse Resp BP Pulse Ox 02/17/21 07:16 36.5 C 83 14 101/64 92 02/17/21 00:09 36.4 C L 79 14 113/66 96 PG Care Time/CCT Total # of Minutes Spent Total Time Spent with Patient: Total time spent is greater than 50% in coordination of care (as documented) at patient's floor/unit and/or counseling patient: Coding Level of Care Code None Diagnoses History of laparotomy Z98.890
[2021-02-17] MEDS: predniSONE 10 MG TABLET NG SCH (08:49)
[2021-02-17] MEDS: HYDROXYCHLOROQUINE SULFATE 200 MG TAB PO SCH (08:50)
[2021-02-17] MEDS: SENNOSIDES 8.8 MG/5 ML UDC PO SCH ×2 (08:55→20:57)
[2021-02-17] MEDS ORDERED: PANTOprazole 40 MG TAB PO SCH (09:00)
[2021-02-17] MEDS: CALCIUM CARBONATE 500 MG CHEWABLE TAB PO PRN ×2 (16:24→22:36)
[2021-02-17] MEDS: WARFARIN SOD 7.5 MG TAB PO SCH (16:28)
[2021-02-17] MEDS: HEPARIN SODIUM/DEXTROSE 25,000 UNITS/500 ML BAG IV SCH (16:31)
[2021-02-17] MEDS ORDERED: SUCRALFATE 1 GM/10 ML UDC PO STA (17:03)
[2021-02-17] MEDS: PANTOprazole 40 MG TAB PO SCH (20:59)
[2021-02-17] MEDS: SUCRALFATE 1 GM/10 ML UDC PO SCH (21:00)
[2021-02-17] MEDS ORDERED: QUEtiapine FUMARATE 25 MG TABLET PO SCH (21:00)
--- NOTE | 2021-02-18 05:41 | Hospitalist Progress Note ---
Date of Service February 17, 2021 Assessment & Plan (1) GERD (gastroesophageal reflux disease): Plan: started on PPI this am she had stuffed shells w/ sauce today throwing her into an episode of severe GERD she denied any dysphagia or odynophagia despite the heartburn prior CT imaging studies showed both an abnormal distal esophagus (which is probably esophagitis) as well as stomach (gastric wall thickening - likely gastritis, can't rule out other pathology) given refractory symptoms and the above CT findings will - * increase PPI to BID dosing * add carafate 1gm QID * NO caffeine, spicy foods, fried foods, acidic foods I don't see thrush on oral exam - but this doesn't exclude candidal esophagitis (although she denies dysphagia/odynophagia). If symptoms cont despite the above then she would be deserving of GI consult. Finally, she has been on chronic prednisone for years for MCTD but was not on GI prophy prior. (2) Esophagitis: Plan: as above CTA chest 02/01 with "Mild thickening of the mid to distal esophagus" (3) Gastritis: Plan: as above CT a/p 02/03 with "moderate gastric wall thickening" (4) Pulmonary embolism: Plan: dx 02/01. no DVT on LE dopplers. INR today 2.1 is on coumadin 7.5mg daily await INR tomorrow if >2 then stop heparin drip (would have completed 2-day overlap period) suspect she will need 4-5 days of coumadin 5mg along with 2-3 days of 7.5mg as outgoing regimen but certainly subject to change decide on regimen tomorrow H/H remain stable in the face of recent rectus sheath hematoma (5) Anemia: Plan: Acute blood loss anemia 2nd postsurgical losses as well as development of rectus sheath hematoma in setting of anticoagulation for PEs. Rectus sheath Hematoma discovered 02/[address] s/p 2 units PRBCs/ H/H stable over the last few days. Repeat H/H in am. (6) Rectus sheath hematoma: Plan: as seen on 02/03 CT abd/pelvis. spontaneous - occurred in setting of therapeutic anticoagulation for PEs. anticoagulation was briefly stopped earlier this stay due to #1, and then resumed cautiously and slowly. H/H in am for stability. (7) Acute delirium: Plan: ICU psychosis/metabolic encephalopathy. resolved. remains on seroquel at HS - cut to 12.5mg tonight, then stop thereafter. she is at mental status baseline and was not on this med at home. (8) Sepsis: Plan: "abdominal sepsis" - present on admission. resolved. at time of admission she had CT evidence of suspected small bowel ischemia with bowel perforation. taken emergently to OR on 01/29 - s/p ex lap with LOS by Dr Cabrera. No bowel perf found fortunately. 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 (9) Elevated troponin: Plan: 2nd to myocardial demand ischemia in setting of #5. no ACS. (10) Hypovolemic shock: Plan: present on admission. 2nd to "abdominal sepsis." resolved. (11) TAB (acute kidney injury): Plan: resolved was 2nd to ATN creatinine now normal repeat Cr tomorrow am (12) Bowel perforation: Plan: ruled out at time of ex lap on 01/[address] Cabrera tolerating low fiber diet but appetite is fair at best (13) Chronic obstructive asthma: Plan: continue home inhaler regimen no issues (14) Mixed connective tissue disease: Plan: cont plaquenil cont prednisone 10mg daily Follows with Dr. Kyle at [facility] [place] received stress dose steroids early in her hospitalization - now back to chronic prednisone dose of 10mg/day (15) DVT prophylaxis: Plan: heparin drip Plan: cont PT/OT I am concerned about #1-#3 -- if symptoms do not improve this could hold up discharge potentially will d/w surgery in am Admission and Anticipated Discharge Date Admission Date: January 29, 2021 Subjective patient states she had stuffed shells w/ sauce and since then has had severe GERD, burping, heartburn, dyspepsia she has GERD symptoms at home at times but this is quite severe today while in the room I told her that her CTA chest earlier in the stay showed inflammation of the mid to distal esophagus which is likely due to esophagitis (at minimum) in addition, her CT abd/pelvis earlier in the stay showed gastric wall thickening - also likely gastritis she denies dyspnea denies orthopnea, although she prefers to sleep upright (she does the same thing at home - sleeps in a recliner) denies abd pain passing stool very irritable today Review of Systems Review of Systems: gen - no fever, chills; fatigue remains CV - no left or right-sided cp pulm - no cough, no congestion, no dyspnea GI - heartburn as per HPI; no vomiting - no voiding issues Physical Exam Physical Exam: gen - thin, looks uncomfortable today due to GERD mouth - mmm, no thrush neck - no JVD heart - RRR, s1 s2, 1/6 [place] lungs - CTA b/l, slightly decreased BS bases abd - soft, no tenderness, BS+, midline incision clean ext - no edema, pulses 2+ b/l psych - a/o x 3 but restricted affect, irritable today skin - no rash, mild pallor Results & Data Results & Data ([facility]) Vital Signs (Past 12 Hours) Vital Signs Temp Pulse Resp BP Pulse Ox 02/17/21 22:33 36.8 C 88 17 120/71 93 Laboratory Results INR 2.1 Hb 9 Cr 1.1 PG Care Time/CCT Total # of Minutes Spent Total Time Spent with Patient: Total time spent is greater than 50% in coordination of care (as documented) at patient's floor/unit and/or counseling patient: Coding Level of Care Code 53173 Subseq Hosp Care Lvl 3 Diagnoses Pulmonary embolism I26.99 Anemia D64.9 Rectus sheath hematoma S30.1XXA Acute delirium R41.0 Sepsis A41.9 Sepsis acute organ dysfunction status: unspecified Sepsis type: sepsis due to unspecified organism Elevated troponin R77.8 Hypovolemic shock R57.1 TAB (acute kidney injury) N17.9 Bowel perforation K63.1 Chronic obstructive asthma J44.9 Mixed connective tissue disease M35.1 DVT prophylaxis Z29.9 GERD (gastroesophageal reflux disease) K21.9 Gastritis K29.70 Esophagitis K20.90 (1) Sepsis Sepsis acute organ dysfunction status: unspecified Sepsis type: sepsis due to unspecified organism Qualified Code(s): A41.9 - Sepsis, unspecified organism
[2021-02-18 07:12] LABS: Hematocrit (blood only) 28.6 % (37-47); Hemoglobin 9.4 g/dL (12.0-16.0)
[2021-02-18 07:30] LABS: Partial Thromboplastin Ratio 2.6
[2021-02-18 07:40] LABS: Partial Thromboplastin Time 68.3 Seconds (21.0-31.0)
[2021-02-18 07:41] LABS: Creatinine Clr Calc Pharmacy 29.1 ml/min; Est GFR (African American) 49.4 ml/min; Est GFR (Non-African American) 42.6 ml/min
[2021-02-18 08:10] LABS: INR 2.1 (0.9-1.1); Prothrombin Time 20.1 Seconds (9.0-12.0)
--- NOTE | 2021-02-18 08:23 | Surgery Progress Note ---
Date of Service February 18, 2021 Assessment & Plan (1) History of laparotomy: Plan: INR 2.1 again today...per IM ok for d/c d/c instructions given. f/u with Dr. Cabrera 1-2 weeks. Admission and Anticipated Discharge Date Admission Date: January 29, 2021 Subjective pt feeling well. wants to go home. Physical Exam Physical Exam: alert. nad abd: soft. incision well healed. nt. Results & Data ([facility]) Vital Signs (Past 12 Hours) Vital Signs Temp Pulse Resp BP Pulse Ox 02/18/21 07:51 36.6 C 88 18 92/55 L 95 02/17/21 22:33 36.8 C 88 17 120/71 93 PG Care Time/CCT Total # of Minutes Spent Total Time Spent with Patient: Total time spent is greater than 50% in coordination of care (as documented) at patient's floor/unit and/or counseling patient: Coding Level of Care Code None Diagnoses History of laparotomy Z98.890
[2021-02-18] MEDS: SENNOSIDES 8.8 MG/5 ML UDC PO SCH (09:29)
[2021-02-18] MEDS: SUCRALFATE 1 GM/10 ML UDC PO SCH ×2 (09:29→12:46)
[2021-02-18] MEDS: predniSONE 10 MG TABLET NG SCH (09:30)
[2021-02-18] MEDS: PANTOprazole 40 MG TAB PO SCH (09:30)
[2021-02-18] MEDS: HYDROXYCHLOROQUINE SULFATE 200 MG TAB PO SCH (09:30)
--- NOTE | 2021-02-18 12:39 | Hospitalist Progress Note ---
Date of Service February 18, 2021 Assessment & Plan (1) GERD (gastroesophageal reflux disease): Plan: improved with increase in PPI to bid dosing + addition of carafate 1gm QID prior CT imaging studies showed both an abnormal distal esophagus (which is probably esophagitis) as well as stomach (gastric wall thickening - likely gastritis, can't rule out other pathology) again advised NO caffeine, spicy foods, fried foods, acidic foods she has been on chronic prednisone for years for MCTD but was not on GI prophy prior to this admission she really deserves PPI chronically in light of prednisone use [place] [facility] [place] [facility] [place]/c for consideration of EGD send home with - PPI twice daily carafate 1gm AC x 10 days (2) Esophagitis: Plan: as above CTA chest 02/01 with "Mild thickening of the mid to distal esophagus" (3) Gastritis: Plan: as above CT a/p 02/03 with "moderate gastric wall thickening" (4) Pulmonary embolism: Plan: dx 02/01. no DVT on LE dopplers. INR again today 2.1. received 7.5mg of coumadin yesterday can d/c heparin drip total weekly dose 37mg (over the last 7 days) plan - d/c home on 5mg of coumadin daily f/u INR on Friday AM will have [facility] [place] [facility] [place] cris arrange f/u with PCP For INR management H/H remain stable in the face of recent rectus sheath hematoma suspect she will need 5mg daily 5-6 times a week 7.5mg 1-2x's each week (5) Anemia: Plan: Acute blood loss anemia 2nd postsurgical losses as well as development of rectus sheath hematoma in setting of anticoagulation for PEs. Rectus sheath Hematoma discovered 02/[address] s/p 2 units PRBCs/ H/H stable over the last few days. Repeat H/H again stable today. (6) Rectus sheath hematoma: Plan: as seen on 02/03 CT abd/pelvis. spontaneous - occurred in setting of therapeutic anticoagulation for PEs. anticoagulation was briefly stopped earlier this stay due to #1, and then resumed cautiously and slowly. H/H have remained stable in the last 5+ days. (7) Acute delirium: Plan: ICU psychosis/metabolic encephalopathy. resolved. stop seroquel. (8) Sepsis: Plan: "abdominal sepsis" - present on admission. resolved. at time of admission she had CT evidence of suspected small bowel ischemia with bowel perforation. taken emergently to OR on 01/29 - s/p ex lap with LOS by Dr Cabrera. No bowel perf found fortunately. 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 (9) Elevated troponin: Plan: 2nd to myocardial demand ischemia in setting of #5. no ACS. (10) Hypovolemic shock: Plan: present on admission. 2nd to "abdominal sepsis." resolved. (11) TAB (acute kidney injury): Plan: resolved was 2nd to ATN creatinine now normal CR today stable (12) Bowel perforation: Plan: ruled out at time of ex lap on 01/[address] Cabrera tolerating low fiber diet (13) Chronic obstructive asthma: Plan: continue home inhaler regimen no issues (14) Mixed connective tissue disease: Plan: cont plaquenil cont prednisone 10mg daily Follows with Dr. Kyle at [facility] [place] stress dose steroids early in her hospitalization - now back to chronic prednisone dose of 10mg/day (15) DVT prophylaxis: Plan: stop heparin cont coumadin Plan: spoke with gen surg - from medical standpoint can d/c home today again - PPI BID, carafate AC x 10 days, coumadin 5mg daily, INR on Tuesday 02/20 I updated the d/c instructions with the above recs gave VTE d/c instructions as well will need at least 6 months of Rx for her recent PEs Admission and Anticipated Discharge Date Admission Date: January 29, 2021 Subjective pt had a good night feels good today reflux resolved no dysphagia or odynophagia no stomach pain had several soft BMs overnight - not diarrhea no dizziness or lightheadedness no dyspnea surgery plans to d/c home we had a conversation about her coumadin -- she prefers to have Dr Barajas follow her INRs we discussed coumadin clinic - ideally does not want such due to travels from [place] to [place] we discussed GI referral for suspected gastritis/esophagitis Review of Systems Review of Systems: gen - weakness/fatigue improved CV - no cp pulm - no cough, no congestion GI - no N/V Physical Exam Physical Exam: gen - thin, NAD mouth - mmm, no thrush neck - no JVD heart - RRR, s1 s2, 1/6 [place] lungs - CTA b/l, slightly decreased BS bases abd - soft, no tenderness, BS+, midline incision clean ext - no edema, pulses 2+ b/l psych - a/o x 3 skin - no rash, mild pallor Results & Data Results & Data ([facility]) Vital Signs (Past 12 Hours) Vital Signs Temp Pulse Resp BP Pulse Ox 02/18/21 07:51 36.6 C 88 18 92/55 L 95 Laboratory Results Laboratory Results - last 24 hr 02/18/21 02/18/21 02/18/21 06:35 06:35 06:35 Hgb 9.4 L Hct 28.6 L PT INR APTT 68.3 H* PTT Ratio 2.6 Creatinine 1.28 H Est Cr Clr Drug Dosing 29.1 Est GFR ( Amer) 49.4 Est GFR (Non-Af Amer) 42.6 02/18/21 06:35 Hgb Hct PT 20.1 H INR 2.1 H APTT PTT Ratio Creatinine Est Cr Clr Drug Dosing Est GFR ( Amer) Est GFR (Non-Af Amer) PG Care Time/CCT Total # of Minutes Spent Total Time Spent with Patient: Total time spent is greater than 50% in coordination of care (as documented) at patient's floor/unit and/or counseling patient: Coding Level of Care Code 79242 Subseq Hosp Care Lvl 3 Diagnoses GERD (gastroesophageal reflux disease) K21.9 Esophagitis K20.90 Gastritis K29.70 Pulmonary embolism I26.99 Anemia D64.9 Rectus sheath hematoma S30.1XXA Acute delirium R41.0 Sepsis A41.9 Sepsis acute organ dysfunction status: unspecified Sepsis type: sepsis due to unspecified organism Elevated troponin R77.8 Hypovolemic shock R57.1 TAB (acute kidney injury) N17.9 Bowel perforation K63.1 Chronic obstructive asthma J44.9 Mixed connective tissue disease M35.1 DVT prophylaxis Z29.9 (1) Sepsis Sepsis acute organ dysfunction status: unspecified Sepsis type: sepsis due to unspecified organism Qualified Code(s): A41.9 - Sepsis, unspecified organism
--- NOTE | 2021-02-22 12:39 | Discharge Summary (DS) ---
DATE OF DISCHARGE: 02/18/2021. PRINCIPAL DIAGNOSES: Hypovolemic shock with small bowel obstruction. Also, the patient experienced severe malnutrition. She also experienced pulmonary emboli requiring anticoagulation. HISTORY OF PRESENT ILLNESS: The patient is a 70-year-old female who was admitted through the emergen cy room on 01/29/2021 with hypovolemic shock, felt to be coming from small bowel obstruction and poss ible ischemia and perforation. She was taken emergently to the operating room. Upon exploration, th e patient did have a small bowel obstruction with some adhesive bands in the pelvis, but she also had severely abnormal small bowel, which was known from prior laparotomies. The majority of her jejunum and proximal ileum was involved with severe pneumatosis and scarring. We could not resect this area ; however, it was viable and not ischemic. Subsequent to the operation, she was placed in the intens donell care unit where she did slowly improve. She was on subcutaneous anticoagulants postoperatively, but apparently did develop pulmonary emboli with shortness of breath and tachycardia requiring additi onal oxygen and then anticoagulation. She was unable to eat for some time and was placed on TPN via a PICC line. She did gradually progress with her diet and her activity. Did require some very slow titration of her anticoagulants, but finally was able to be discharged home with visiting nurse on . Job ID: [id number]
== END 2021-02-18 14:18 | disposition home health service (06) | DRG 853 ==
LOC: ED 11:40 → OR 14:24 → 1E 17:41 → SUATTDRO 17:41 → 2S 02-04 14:35 → 3N 02-13 14:44

== ENCOUNTER 2021-04-07 19:33 | Inpatient (IN) ==
[2021-04-07] MEDS ORDERED: ONDANSETRON INJ 2 MG/ML 2 ML VIAL IV STA (19:48)
--- NOTE | 2021-04-07 19:51 | Emergency Department Note ---
History of Present Illness General Chief complaint: Weakness Stated complaint: CAN'T KEEP ANYTHING DOWN FOR 3 DAYS, WEAKNESS Time Seen by Provider: 04/07/21 19:42 Source: patient History of Present Illness Provider complaint: Vomiting and weakness Onset (ago): day(s) Location: abdomen Pain Consistency: + intermittent Quality: + other (Vomiting) Exacerbated By: + eating Associated symptoms: + nausea/vomiting, + shortness of breath and + weakness; no chest pain, no cough, no fever/chills or no headaches This is a 70-year-old female with a history of small bowel obstruction presenting with vomiting and weakness. She started vomiting about 3 days ago. It is worse when she tries to eat. She cannot keep down any solids but is able to drink fluids. She has no associated abdominal pain or discomfort or distention. She stated that today she felt extremely weak and could barely get up and so presents to the emergency department. She states that she has been having progressive difficulty walking due to weakness over the past several days. She denies any fever, cough or cold symptoms, chest pain, diarrhea, ur inary symptoms or black or bloody stools. She is on Coumadin for a history of recent PE and wears compression stockings for lower extremity edema. She does state that she has been short of breath. Home Medications Medication Instructions Recorded Confirmed Type budesonide-formoterol HFA 160 1 puff INHALATION DIRECTED 10/19/19 04/07/21 History mcg-4.5 mcg/actuation aerosol inhaler (Symbicort) hydroxychloroquine 200 mg tablet 200 mg PO DAILY 03/10/20 04/07/21 History ergocalciferol (vitamin D2) 1,250 50,000 unit PO .QTUESDAY 01/29/21 04/07/21 History mcg (50,000 unit) capsule prednisone 10 mg tablet 10 mg PO DAILY 01/29/21 04/07/21 History pantoprazole 40 mg tablet,delayed 40 mg PO BID #60 tab 02/18/21 04/07/21 Rx release tramadol 50 mg tablet 50 mg PO UD PRN 04/07/21 04/07/21 History warfarin 5 mg tablet 2.5 mg PO DAILY 04/07/21 04/07/21 History Allergies Allergy/AdvReac Type Severity Reaction Status Date / Time latex Allergy Unknown Unknown Verified 04/07/21 20:49 leflunomide AdvReac Unknown Unknown Verified 04/07/21 20:49 Past Med/Surg History Medical History Heart disease Kidney stones Mixed connective tissue disease Restrictive lung disease SBO (small bowel obstruction) Sepsis Surgical History History of ankle surgery History of bowel resection X 2 AT [facility] [place], [place] S/P PERFORATION AFTER COLONOSCOPY History of lithotripsy renal S/P cataract surgery S/P cholecystectomy Family History Mother Squamous cell carcinoma Uterine cancer Breast cancer Hypertension Father Squamous cell carcinoma Breast cancer Hypertension Diabetes Cardiac disorder Family/Other Uterine cancer Breast cancer Denies family history of Ovarian cancer Colorectal cancer Social History Smoking Status: Former smoker Hx Alcohol Use: No Hx Substance Use: No Preferred Language: Malawian Communication Ability: Effective Middle School Coach Required: No Beliefs That Will Affect Care: None marital status: Current Living Situation: Alone Feels Safe at Home: Yes Assistive Devices: None Review of Systems See HPI for pertinent positives & negatives. and A total of 10 systems reviewed and were otherwise negative Physical Exam Vital Signs Vital Signs - 24 hr 04/07/21 19:34 04/07/21 19:36 Temperature 36.5 C 36.6 C Temperature Source Oral Oral Pulse Rate 93 H Pulse Rate [Right Finger] 95 H Pulse Rhythm [Right Finger] Regular Respiratory Rate 18 16 Respiratory Effort / Characteristics Non-Labored Spontaneous Respiratory Depth Normal Blood Pressure 84/56 L Blood Pressure [Right Arm] 119/69 Blood Pressure Mean 65 Blood Pressure Mean [Right Arm] 85 Blood Pressure Position [Right Arm] Lying Pulse Oximetry 96 97 Oxygen Delivery Method Room Air Room Air Sepsis Recent Fever Within 48 Hours No Sepsis New/Unexplained Change in Mental Status No Sepsis Action Taken by Nursing No Action Required Constitutional: Vital signs reviewed. Cachectic. Eyes: Pupils are equal round reactive to light. Conjunctiva are noninjected. ENT: Pharynx is clear without erythema or exudate. Mucous membranes are dry. Neck supple without meningeal signs. Respiratory: Clear to auscultation bilaterally. Breath sounds are equal bilaterally. Cardiovascular: Regular rate and rhythm. No rubs or gallops. GI: Soft, nondistended and nontender. Bowel sounds are present. Musculoskeletal: Diffuse ankle and foot swelling bilaterally. No lower extremity tenderness. Integumentary: No cyanosis. or jaundice. Neurological: The patient is awake and alert. No focal deficits. Psychiatric: Normal affect. Not anxious appearing. Course Administered Medications Magnesium Sulfate/Dextrose (Magnesium Sulfate / D5w) 1 gm in 100 mls @ 100 mls/hr IV Q1H FABIAN Stop: 04/07/21 22:48 Last Admin: 04/07/21 21:06 Dose: 100 mls/hr Documented by: [id number] Discontinued Medications Dextrose (Dextrose 50% 50 Ml Syringe) 25 ml IV NOW ONE Stop: 04/07/21 20:49 Last Admin: 04/07/21 21:05 Dose: 25 ml Documented by: [id number] Sodium Chloride (Nss) 500 mls @ 999 mls/hr IV .Q31M FABIAN Stop: 04/07/21 20:30 Last Admin: 04/07/21 20:22 Dose: 999 mls/hr Documented by: [id number] Ondansetron HCl (Ondansetron Inj 2 Mg/Ml 2 Ml Vial) 4 mg IV NOW STA Stop: 04/07/21 19:49 Last Admin: 04/07/21 20:22 Dose: 4 mg Documented by: [id number] Medical Decision Making Differential Diagnosis Small bowel obstruction, dehydration, malnutrition, electrolyte abnormality, subtherapeutic INR Medical Records Attestation: I reviewed the patient's medical records. I did perform a limited focused review of portions of the patient's old chart on the electronic medical record. The patient was admitted to the hospital in January for small bowel obstruction and hypovolemic shock. She had an exploratory laparotomy by Dr. Cabrera for lysis of adhesions. 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 She developed a pulmonary embolism while in the hospital and was placed on warfarin. She had no DVT discovered on her lower extremities. Home Medications Current Medication List: was personally reviewed by me Laboratory Data Attestation: I reviewed the patient's lab results. Result diagrams: 04/07/21 Unknown 04/07/21 Unknown Lab Results 04/07/21 04/07/21 04/07/21 Range/Units 20:06 20:06 21:24 WBC (4.8-10.8) K/uL RBC (4.2-5.4) M/uL Hgb (12.0-16.0) g/dL Hct (37-47) % MCV (80-100) fL MCH (25-34) pg MCHC (32-36) g/dL RDW Std Deviation (36.4-46.3) fL RDW Coeff of Bo (11.5-14.5) % Plt Count (130-400) K/uL MPV (7.4-10.4) fL Immature Gran % (Auto) % Neut % (Auto) % Lymph % (Auto) % [place] % (Auto) % Eos % (Auto) % Baso % (Auto) % Neut # (Auto) (1.4-6.5) K/uL Lymph # (Auto) (1.2-3.4) K/uL [place] # (Auto) (0.11-0.59) K/uL Eos # (Auto) (0-0.5) K/uL Baso # (Auto) (0-0.2) K/uL Immature Gran # (Auto) (0.00-0.02) K/uL PT (9.0-12.0) Seconds INR (0.9-1.1) APTT (21.0-31.0) Seconds PTT Ratio Sodium (136-145) mmol/L Potassium (3.5-5.1) mmol/L Chloride (98-107) mmol/L Carbon Dioxide (21-32) mmol/L Anion Gap (3-11) BUN (7-18) mg/dl Creatinine (0.6-1.2) mg/dl Est Cr Clr Drug Dosing ml/min Est GFR ( Amer) ml/min Est GFR (Non-Af Amer) ml/min BUN/Creatinine Ratio (10-20) Glucose (70-99) mg/dl POC Glucose 91 (70-99) mg/dl Calcium (8.5-10.1) mg/dl Magnesium (1.8-2.4) mg/dl Total Bilirubin (0.2-1) mg/dl AST (15-37) U/L ALT (12-78) Alkaline Phosphatase (45-117) U/L Troponin I (0-0.045) ng/ml Total Protein (6.4-8.2) gm/dl Albumin (3.4-5.0) gm/dl Globulin (2.5-4.0) gm/dl Albumin/Globulin Ratio (0.9-2) SARS-CoV-2, RNA, NAAT NEGATIVE (NEGATIVE) Blood Type O Positive Antibody Screen NEGATIVE 04/07/21 04/07/21 04/07/21 Range/Units Unknown Unknown Unknown WBC 12.89 H (4.8-10.8) K/uL RBC 4.25 (4.2-5.4) M/uL Hgb 13.4 (12.0-16.0) g/dL Hct 39.9 (37-47) % MCV 93.9 (80-100) fL MCH 31.5 (25-34) pg MCHC 33.6 (32-36) g/dL RDW Std Deviation 51.1 H (36.4-46.3) fL RDW Coeff of Bo 15.1 H (11.5-14.5) % Plt Count 206 (130-400) K/uL MPV 10.8 H (7.4-10.4) fL Immature Gran % (Auto) 0.3 % Neut % (Auto) 81.1 % Lymph % (Auto) 14.6 % [place] % (Auto) 4.0 % Eos % (Auto) 0.0 % Baso % (Auto) 0.0 % Neut # (Auto) 10.45 H (1.4-6.5) K/uL Lymph # (Auto) 1.88 (1.2-3.4) K/uL [place] # (Auto) 0.52 (0.11-0.59) K/uL Eos # (Auto) 0.00 (0-0.5) K/uL Baso # (Auto) 0.00 (0-0.2) K/uL Immature Gran # (Auto) 0.04 H (0.00-0.02) K/uL PT 18.2 H (9.0-12.0) Seconds INR 1.9 H (0.9-1.1) APTT 31.1 H (21.0-31.0) Seconds PTT Ratio 1.2 Sodium 140 (136-145) mmol/L Potassium 4.1 (3.5-5.1) mmol/L Chloride 106 (98-107) mmol/L Carbon Dioxide 20 L (21-32) mmol/L Anion Gap 13.0 H (3-11) BUN 55 H (7-18) mg/dl Creatinine 1.60 H (0.6-1.2) mg/dl Est Cr Clr Drug Dosing 21.5 ml/min Est GFR ( Amer) 37.7 ml/min Est GFR (Non-Af Amer) 32.5 ml/min BUN/Creatinine Ratio 34.4 H (10-20) Glucose 46 L* (70-99) mg/dl POC Glucose (70-99) mg/dl Calcium 7.2 L (8.5-10.1) mg/dl Magnesium 0.7 L* (1.8-2.4) mg/dl Total Bilirubin 0.4 (0.2-1) mg/dl AST 42 H (15-37) U/L ALT 54 (12-78) Alkaline Phosphatase 92 (45-117) U/L Troponin I 0.248 H* (0-0.045) ng/ml Total Protein 5.9 L (6.4-8.2) gm/dl Albumin 2.3 L (3.4-5.0) gm/dl Globulin 3.6 (2.5-4.0) gm/dl Albumin/Globulin Ratio 0.6 L (0.9-2) SARS-CoV-2, RNA, NAAT (NEGATIVE) Blood Type Antibody Screen Imaging Data Radiologist's Impression: Abdomen/Pelvis CT 04/07/21 19:48 CT abd pelvis wo con CLINICAL HISTORY: Vomiting and abdominal pain. Evaluate for small bowel obstruct ion COMPARISON STUDY: 02/03/2021 CT DOSE: 238.03 mGy.cm TECHNIQUE: Standard CT of the Abdomen and Pelvis was performed without IV contrast. The patient did not receive oral contrast. A dose lowering technique was utilized adhering to the principles of ALARA. FINDINGS: Lung base: The lung bases are clear. There is a calcified granuloma at the right lung base. Abdominal cavity: There is no evidence for abdominal mass, adenopathy or ascite s. Liver: The liver is homogeneous in attenuation on these limited noncontrast images.. Spleen: The spleen is homogeneous in attenuation on these limited noncontrast images. Calcified granuloma are present. Pancreas: The pancreas is homogeneous in attenuation on these limited noncontrast images. Gall Bladder: Surgical clips are present previous cholecystectomy. Adrenal glands: The adrenal glands are normal in size and attenuation on these limited noncontrast images. Kidneys: The kidneys are homogeneous in attenuation on these limited noncontrast images. There is no evidence for gross renal mass, calculus or hydronephrosis bilaterally. Bowel: There is a high-grade partial small bowel obstruction present within the lower abdomen with what appears to be transition zone in the distal ileum. There is moderate to marked dilatation of small bowel loops proximal to this site and decompression of the terminal ileum and colon. Fluid levels are seen throughout the dilated small bowel. The stomach is also distended with liquid and food stuff. There is evidence for previous colonic resection the right upper quadrant with an end anastomosis. There are no inflammatory changes present. There is no evidence for free air. Bladder: There is no evidence for focal bladder wall thickening, calculus or diverticulum. : There is no evidence for pelvic mass or adenopathy. Vasculature: There is no evidence for focal aneurysmal dilatation of the abdominal aorta. Osseous structures: There is no acute osseous pathology. Degenerative changes are seen within the spine. IMPRESSION: 1. High-grade partial small bowel obstruction within the lower pelvis, most likely due to adhesions within the distal ileum. There is a site of transition demonstrated. 2. The terminal ileum is decompressed as is the colon. 3. No other evidence for acute intra-abdominal or pelvic abnormality on these limited noncontrast images. ACT 112: Negative or not required by law. Electronically signed by: Porter Sandy M.D. 04/07/2021 9:07 PM Chest X-Ray 04/07/21 19:48 XR chest 1V portable CLINICAL HISTORY: weakness. Evaluate cardiopulmonary status COMPARISON STUDY: 02/06/2021 TECHNIQUE: 1 view of the chest FINDINGS: Single frontal view of the chest demonstrates the cardiomediastinal silhouette to be within normal limits. The lungs are clear of alveolar opacities. There is no evidence for pleural effusion. There is no evidence for vascular congestion. There is no acute osseous pathology. IMPRESSION: No acute cardiopulmonary disease. ACT 112: Negative or not required by law. Electronically signed by: Porter Sandy M.D. 04/07/2021 8:08 PM ECG Data Attestation: I personally reviewed and interpreted this ECG as follows: Indication: + vomiting Rate (beats per minute): 102 Rhythm: + sinus tachycardia ECG Intervals/blocks: + Right Bundle branch block ECG [place]: + Left axis deviation ECG ST segments: + T-wave inversions ECG Findings: + Q waves Comparison ECG Date: from (February 01, 2021) Change: the following changes noted (Right bundle branch block is new) MDM Narrative I did evaluate the patient as noted above. The patient is presenting with vomiting for the past 3 days and generalized weakness. She is hypotensive in triage with a blood pressure of 84/56. IV access was established. I did treat her with a bolus of normal saline IV with 500 cc and her blood pressure did come up. I also treated the patient with Zofran IV. I did place an order for continuous cardiac monitoring. The monitor showed normal sinus rhythm at a rate of 90 bpm. did order and personally review the patient's 12-lead EKG as described above. She has a new right bundle branch block. She denies any chest pain but states she is short of breath when she exerts herself. I did order and personally reviewed the images of the patient's chest x-ray as described above. Chest x-ray is unremarkable. I did order a urine analysis. I did order and review the patient's blood work as noted in the electronic medical record. Her white blood cell count is elevated at 12.8. Hemoglobin is 13 and platelet count is 206. Her INR is subtherapeutic at 1.9. Electrolytes demonstrate a magnesium of 0.7 and a CO2 of 20. Her creatinine is 1.6 which is at her baseline. Troponin is elevated 0.248. Her last troponin was elevated in January but not as high. Covid testing is negative. Glucose is 46. I did treat her with IV D50 25 mL. She was also placed on D5 half-normal saline at 80 mL/h. She was a lso given 2 g of IV magnesium. I did order a CT of the abdomen and pelvis. I did review the images myself as well as the radiology report as described above. She has a high-grade partial bowel obstruction with the in the lower pelvis likely due to adhesions within the distal ileum. There is a site of transition demonstrated. The terminal ileum is decompressed as is the colon. I did discuss the results with the patient. I did recommend a NG tube but the patient stated that it was so horrible the last 2 times he would like to hold off. She does understand that the NG tube could help her symptoms. I did discuss case with surgery who came to evaluate the patient in her room. They did convince her to have the NG tube which was not placed. I did discuss the case with the immigration case manager and the hospitalist was informed. Impression & Plan Partial obstruction of small intestine, Hypoglycemia, Acute hypotension, Hypomagnesemia, Elevated troponin, Abnormal ECG, Chronic kidney disease Discharge Plan Visit Data Chief Complaint: Weakness Stated Complaint: CAN'T KEEP ANYTHING DOWN FOR 3 DAYS, WEAKNESS ED Provider: Rip Tabor Discharge Problem: Partial obstruction of small intestine, Hypoglycemia, Acute hypotension, Hypomagnesemia, Elevated troponin, Abnormal ECG, Chronic kidney disease Patient Disposition: Being Evaluated by Hospitalist Forms Stand Alone Forms: My [facility] Prescriptions Prescriptions: No Action budesonide-formoterol [Symbicort] 160-4.5 mcg/actuation HFA aerosol inhaler 1 puff INHALATION DIRECTED RF: 0 hydroxychloroquine 200 mg tablet 200 mg PO DAILY RF: 0 prednisone 10 mg tablet 10 mg PO DAILY RF: 0 ergocalciferol (vitamin D2) 1,250 mcg (50,000 unit) capsule 50,000 unit PO .QTUESDAY RF: 0 pantoprazole 40 mg Tablet,Delayed Release (Dr/Ec) 40 mg PO BID Qty: 60 RF: 1 tramadol 50 mg tablet 50 mg PO UD PRN (Reason: Pain) RF: 0 warfarin 5 mg tablet 2.5 mg PO DAILY RF: 0 Referrals Referrals: Neo Barajas MD [Primary Care Provider] - Discharge Problem: Chronic kidney disease Qualifiers: Chronic kidney disease stage: unspecified stage Qualified Code(s): N18.9 - Chronic kidney disease, unspecified
[2021-04-07] MEDS ORDERED: SODIUM CHLORIDE 0.9% 500 ML IV SCH (20:00)
--- NOTE | 2021-04-07 20:09 | XRay Report ---
XR chest 1V portable CLINICAL HISTORY: weakness. Evaluate cardiopulmonary status COMPARISON STUDY: 02/06/2021 TECHNIQUE: 1 view of the chest FINDINGS: Single frontal view of the chest demonstrates the cardiomediastinal silhouette to be within normal li mits. The lungs are clear of alveolar opacities. There is no evidence for pleural effusion. There is no evidence for vascular congestion. There is no acute osseous pathology. IMPRESSION: No acute cardiopulmonary disease. ACT 112: Negative or not required by law. Electronically signed by: Porter Sandy M.D. 04/07/2021 8:08 PM
[2021-04-07 20:24] LABS: Hematocrit (blood only) 39.9 % (37-47); Hemoglobin 13.4 g/dL (12.0-16.0); Immature Granulocytes # (auto) 0.04 K/uL (0.00-0.02); Immature Granulocytes % (auto) 0.3 %; Lymphocytes # (auto) 1.88 K/uL (1.2-3.4); Lymphocytes % (auto) 14.6 %; Mean Corpuscular Hemoglobin 31.5 pg (25-34); Mean Corpuscular Hgb Conc 33.6 g/dL (32-36); Mean Corpuscular Volume 93.9 fL (80-100); Mean Platelet Volume 10.8 fL (7.4-10.4); Monocytes # (auto) 0.52 K/uL (0.11-0.59); Neutrophils # (auto) 10.45 K/uL (1.4-6.5); Neutrophils % (auto) 81.1 %; Platelet Count 206 K/uL (130-400); RDW Coefficient of Variation 15.1 % (11.5-14.5); RDW Standard Deviation 51.1 fL (36.4-46.3); Red Blood Count 4.25 M/uL (4.2-5.4); White Blood Count 12.89 K/uL (4.8-10.8)
[2021-04-07 20:37] LABS: INR 1.9 (0.9-1.1); Partial Thromboplastin Ratio 1.2; Partial Thromboplastin Time 31.1 Seconds (21.0-31.0); Prothrombin Time 18.2 Seconds (9.0-12.0)
[2021-04-07 20:48] LABS: Albumin Globulin Ratio 0.6 (0.9-2); Albumin Level 2.3 gm/dl (3.4-5.0); BUN Creatinine Ratio 34.4 (10-20); Bilirubin,Total 0.4 mg/dl (0.2-1); Calcium 7.2 mg/dl (8.5-10.1); Creatinine Clr Calc Pharmacy 21.5 ml/min; Est GFR (African American) 37.7 ml/min; Est GFR (Non-African American) 32.5 ml/min; Globulin 3.6 gm/dl (2.5-4.0); Magnesium 0.7 mg/dl (1.8-2.4); Potassium 4.1 mmol/L (3.5-5.1); Total Protein 5.9 gm/dl (6.4-8.2); Troponin I 0.248 ng/ml (0-0.045)
[2021-04-07] MEDS ORDERED: D5W AND 1/2NSS 1,000 ML IV STA (20:48)
[2021-04-07] MEDS ORDERED: DEXTROSE 50% 50 ML SYRINGE IV ONE (20:48)
[2021-04-07] MEDS: MAGNESIUM SULFATE / D5W 1 GM/100 ML BAG IV SCH ×2 (21:06→22:13)
--- NOTE | 2021-04-07 21:09 | CT Scan Report ---
CT abd pelvis wo con CLINICAL HISTORY: Vomiting and abdominal pain. Evaluate for small bowel obstruction COMPARISON STUDY: 02/03/2021 CT DOSE: 238.03 mGy.cm TECHNIQUE: Standard CT of the Abdomen and Pelvis was performed without IV contrast. The patient did not receive oral contrast. A dose lowering technique was utilized adhering to the principles of [place]K [place]. FINDINGS: Lung base: The lung bases are clear. There is a calcified granuloma at the right lung base. Abdominal cavity: There is no evidence for abdominal mass, adenopathy or ascites. Liver: The liver is homogeneous in attenuation on these limited noncontrast images.. Spleen: The spleen is homogeneous in attenuation on these limited noncontrast images. Calcified granu sajan are present. Pancreas: The pancreas is homogeneous in attenuation on these limited noncontrast images. Gall Bladder: Surgical clips are present previous cholecystectomy. Adrenal glands: The adrenal glands are normal in size and attenuation on these limited noncontrast im ages. Kidneys: The kidneys are homogeneous in attenuation on these limited noncontrast images. There is no evidence for gross renal mass, calculus or hydronephrosis bilaterally. Bowel: There is a high-grade partial small bowel obstruction present within the lower abdomen with wh at appears to be transition zone in the distal ileum. There is moderate to marked dilatation of small bowel loops proximal to this site and decompression of the terminal ileum and colon. Fluid levels ar e seen throughout the dilated small bowel. The stomach is also distended with liquid and food stuff. There is evidence for previous colonic resection the right upper quadrant with an end anastomosis. Th ere are no inflammatory changes present. There is no evidence for free air. Bladder: There is no evidence for focal bladder wall thickening, calculus or diverticulum. : There is no evidence for pelvic mass or adenopathy. Vasculature: There is no evidence for focal aneurysmal dilatation of the abdominal aorta. Osseous structures: There is no acute osseous pathology. Degenerative changes are seen within the spi ne. IMPRESSION: 1. High-grade partial small bowel obstruction within the lower pelvis, most likely due to adhesions w ithin the distal ileum. There is a site of transition demonstrated. 2. The terminal ileum is decompressed as is the colon. 3. No other evidence for acute intra-abdominal or pelvic abnormality on these limited noncontrast nicole ges. ACT 112: Negative or not required by law. Electronically signed by: Porter Sandy M.D. 04/07/2021 9:07 PM
--- NOTE | 2021-04-07 21:28 | Surgery Consultation ---
Date of Consultation April 07, 2021 Assessment & Plan (1) Partial obstruction of small intestine: I discussed with treating emergency room physician. The plan is to have the medical service admit the patient. From a surgical perspective we will proceed as follows: Due to the small bowel obstruction and gastric distention noted on CT scan I recommend placing an NG tube. The patient has agreed to this modality. I discussed with the nursing staff in the emergency department and after placing an NG tube they suctioned out approximately 1 L of fluid. The NG tube to be placed to low continuous suction. Will implement bowel rest by making her n.p.o. Hydration measures with intravenous fluids are to be employed and electrolyte deficiencies to be corrected. As noted the treating emergency room physician is already taken measures to correct the patient's low magnesium levels. We will monitor the patient's progress with plans to keep the NG tube until bowel function has improved. If it appears that her bowel function does not return in the next 24 to 48 hours consideration may be given to initiating parenteral nutrition but this is yet to be determined. At the present time I do not feel patient requires an urgent surgical intervention. She does have relative hypotension and slight tachycardia however this may merely be due to poor oral intake and dehydration due to her 3 days of nausea vomiting. The same symptoms would likely account for the slight elevation in her creatinine and will hopefully improve with hydration measures. Additional recommendations be forthcoming based on her clinical course as it unfolds History of Present Illness Reason for Consultation: Small bowel obstruction History of Present Illness This is a 70-year-old female who is well-known to our service. On January 29 of this year patient was taken to the operating room by Dr. Cabrera for an exploratory laparotomy. At the time of the surgery Dr. Cabrera noted chronically dilated small bowel with chronic pneumatosis and scarring in the pelvic region with numerous adhesive bands. There is no evidence of perforation or bowel ischemia at the time of this operation. Dr. Cabrera did perform lysis of adhesions and she did not require any small bowel or bowel resection. Patient was hospitalized until 02/18/2021. During this hospitalization patient did develop pulmonary emboli requiring anticoagulation. She was also requiring TPN initially postoperatively which was able to be discontinued prior to discharge. Patient notes that she was doing somewhat well at home. Her most recent visit with Dr. Cabrera was on 03/15/2021. Dr. Cabrera did note at this time the patient was at risk for having recurrent small bowel obstructions due to the extent of her disease noted at time of surgery. He did note the patient was hospitalized again efforts should be made to avoid surgical intervention. Patient presented to the emergency department this evening secondary to 3 days of nausea vomiting. She denies any abdominal pain. She had says she has been making attempts to eat and drink but everything she eats and drinks she regurgitates and has emesis. She does note that she had a normal bowel movement yesterday. She believes she is passing flatus as well but has not passed any today. Again she denies any abdominal pain and denies any precipitating factors to her emesis other than eating and drinking. She feels due to the fact that she has been able to keep any meaningful oral intake down over the past 3 days she is gotten progressively weaker. She says she did suffer a fall several days ago at her home but this is because her ankle rolled while she was walking up a step. She said she did not initially seek medical attention for her fall and she did not appear to have suffered any injuries from this. In the emergency department the patient had labs and imaging which I independently reviewed. A chest x-ray showed no evidence of pneumonia or CHF. She also had a CT scan of the abdomen and pelvis that was performed without oral or IV contrast. This study showed patient had findings concerning for a high- grade partial small bowel obstruction in the lower pelvis near the distal ileum. The terminal ileum however was noted to be decompressed as was the colon. Labs include a CBC her white blood cell count was 12.8. Her hemoglobin and hemato crit were both normal as was her platelet count. INR was 1.9. Chemistry profile showed sodium and potassium were both within normal range. Her BUN and creatinine were elevated at 55 and 1.6. This creatinine did did demonstrate a slight elevation from her baseline levels. Patient was noted to be hypoglycemic with a glucose of 46. Magnesium was low at 0.7 a troponin was noted to be elevated at 0.248. Review of records does show that she does have a appear to have a chronically elevated troponin however this level was slightly above previous values. A Covid test was performed and was noted to be negative. An EKG did show sinus tachycardia. There are also findings concerning for a evidence of a inferior posterior infarct. Since arrival to the emergency department the patient has been placed on D5 half-normal saline to assist with her hypoglycemia and she has been ordered intravenous magnesium supplementation. Due to the small bowel obstruction findings an NG tube has also been ordered which is currently being placed by nursing staff. At the time of my interview the patient was resting in bed. She was in no distress Allergies Allergy/AdvReac Type Severity Reaction Status Date / Time latex Allergy Unknown Unknown Verified 04/07/21 20:49 leflunomide AdvReac Unknown Unknown Verified 04/07/21 20:49 Home Medications Medication Instructions Recorded Confirmed Type budesonide-formoterol HFA 160 1 puff INHALATION DIRECTED 10/19/19 04/07/21 History mcg-4.5 mcg/actuation aerosol inhaler (Symbicort) hydroxychloroquine 200 mg tablet 200 mg PO DAILY 03/10/20 04/07/21 History ergocalciferol (vitamin D2) 1,250 50,000 unit PO .QTUESDAY 01/29/21 04/07/21 History mcg (50,000 unit) capsule prednisone 10 mg tablet 10 mg PO DAILY 01/29/21 04/07/21 History pantoprazole 40 mg tablet,delayed 40 mg PO BID #60 tab 02/18/21 04/07/21 Rx release tramadol 50 mg tablet 50 mg PO UD PRN 04/07/21 04/07/21 History warfarin 5 mg tablet 2.5 mg PO DAILY 04/07/21 04/07/21 History Patient History Medical History Heart disease Kidney stones Mixed connective tissue disease Restrictive lung disease SBO (small bowel obstruction) Sepsis Surgical History History of ankle surgery History of bowel resection X 2 AT [facility] [place] S/P PERFORATION AFTER COLONOSCOPY History of lithotripsy renal S/P cataract surgery S/P cholecystectomy Family History Mother Squamous cell carcinoma Uterine cancer Breast cancer Hypertension Father Squamous cell carcinoma Breast cancer Hypertension Diabetes Cardiac disorder Family/Other Uterine cancer Breast cancer Denies family history of Ovarian cancer Colorectal cancer Social History Smoking Status: Former smoker Hx Alcohol Use: No Hx Substance Use: No Preferred Language: Bahamian Communication Ability: Effective Director Immunology Required: No Beliefs That Will Affect Care: None marital status: Current Living Situation: Alone Feels Safe at Home: Yes Assistive Devices: None Review of Systems Constitutional: no fever and no chills Eyes: no diplopia Ear, Nose, Mouth, Throat: no ear pain Respiratory: no cough and no dyspnea Cardiovascular: no chest pain Gastrointestinal: + nausea and + vomiting; no abdominal pain Genitourinary: no dysuria Musculoskeletal: no back pain Integumentary: no rash Neurologic: + generalized weakness; no localized weakness Physical Exam Constitutional: + thin; no acute distress Eyes: Wears glasses ENMT: Ears: no hearing impairment Neck: trachea midline Respiratory: normal respiratory effort, lungs clear to auscultation Cardiovascular: Rate/Rhythm: regular rate and regular rhythm Gastrointestinal (Abdomen): Abdomen is soft and nondistended. She had a well healed midline incision from her most recent surgery. There is minimal to no pain with palpation. There is no rebound tenderness or guarding. Bowel sounds are noted to be hypoactive. Musculoskeletal: No calf tenderness Skin: normal turgor; no rashes Neurologic: moves all extremities Results & Data ([facility]) Vital Signs (Past 12 Hours) Vital Signs Temp Pulse Pulse Resp BP BP Pulse Ox 04/07/21 19:36 36.6 C 93 H 16 84/56 L 97 04/07/21 19:34 36.5 C 95 H 18 119/69 96 PG Care Time/CCT Total # of Minutes Spent Total Time Spent with Patient: Total time spent is greater than 50% in coordination of care (as documented) at patient's floor/unit and/or counseling patient: Coding Level of Care Code 49619 Inpt Consult Level 5 Diagnoses Partial obstruction of small intestine K56.600
--- NOTE | 2021-04-07 23:13 | History & Physical Report ---
Date of Service April 07, 2021 Assessment & Plan (1) Partial obstruction of small intestine: Plan: 70 yo F w/ pMHx. of prior SBO s/p ex lap for lysis of adhesions with prolonged hospitalization complicated by PE currently on anticoagulation presenting with weakness and vomiting found to have partial SBO on CT a/p. admitted to PCU SBO, recurrent with prior SBO 2/2 adhesions likely again due to adhesions symptomatic over the last [address] a/p w/ partial small bowel obstruction at the distal ileum - consulted surgery - IVF, continue to evaluate need as pt. developing lower extremity edema - NGT initially put out 1200 then developed blood and was stopped - NPO - Zosyn for empiric coverage given patient was hypotensive and tachycardic on admission NG tube w/ blood, on Warfarin INR 1.9 - stopped NG tube - CXR ordered, NG appropriately placed - keeping NG in place at this time per surgery Elevated troponin, with prior elevations, chest pain free EKG with tachycardia, no ST elevation or depression appreciated - trend Troponin Q6X3 - ECHO ordered - monitor on telemetry Hypomagnesemia likely 2/2 poor oral intake + vomiting Mg. initially 0.7, repleted in ER - recheck in 4 hours Hypoglycemia bsg 46 on admission - IVF w/ dextrose - check ACHS Hx. of PE on Warfarin - INR 1.9 - holding warfarin given bleeding in NG tube Increased lower extremity edema ECHO on 02/02/21 with nl. function, mild-mod valvular dz. and elevated right ventricular systolic pressures of 30-40mmHg - continue gentle fluids at this time - ECHO ordered Fall, likely mechanical - CT head w/o contrast ordered to evaluate for bleed - PT order placed DVT: holding warfarin, SCD's Code: full Diet: NPO History of Present Illness Chief Complaint: weakness Primary Care Provider: Neo Barajas MD Ashia Ca has a past medical history of PE, prior ex lap for SBO with lysis of adhesions with discharge on 02/18 presenting today with weakness, vomiting and shortness of breath. Over the last 3 days she has vomited every time she would eat anything, she was vomiting in the room when I saw her. her last bowel movement was yesterday. She has been able to drink some over the last 3 days but has become progressively weaker and was concerned that she might have an SBO as this feels similar to prior. She has had a significant amount of weight loss over the last year. She does not have any night sweats. One week ago she was walking up her steps on her porch and she fell. She rolled her ankle and did not loose consciousness and did not go to the ER after this. She lives alone at home, she has a walker and has people visit her most days to help with ADLs. She had worked with PT outpatient but has not noticed i mprovement. She notes that her right foot has been weak for months. ER course: IVF, CT a/p, Mg. NG placed Allergies Allergy/AdvReac Type Severity Reaction Status Date / Time latex Allergy Unknown Unknown Verified 04/07/21 20:49 leflunomide AdvReac Unknown Unknown Verified 04/07/21 20:49 Home Medications Medication Instructions Recorded Confirmed Type budesonide-formoterol HFA 160 1 puff INHALATION DIRECTED 10/19/19 04/07/21 History mcg-4.5 mcg/actuation aerosol inhaler (Symbicort) hydroxychloroquine 200 mg tablet 200 mg PO DAILY 03/10/20 04/07/21 History ergocalciferol (vitamin D2) 1,250 50,000 unit PO .QTUESDAY 01/29/21 04/07/21 History mcg (50,000 unit) capsule prednisone 10 mg tablet 10 mg PO DAILY 01/29/21 04/07/21 History pantoprazole 40 mg tablet,delayed 40 mg PO BID #60 tab 02/18/21 04/07/21 Rx release tramadol 50 mg tablet 50 mg PO UD PRN 04/07/21 04/07/21 History warfarin 5 mg tablet 2.5 mg PO DAILY 04/07/21 04/07/21 History Past Med/Surg History Medical History (Updated 04/08/21 @ 11:49 by Nikolas Rausch MD) Heart disease Kidney stones Mixed connective tissue disease Pulmonary emboli Restrictive lung disease SBO (small bowel obstruction) Sepsis Surgical History History of ankle surgery History of bowel resection X 2 AT [facility] – [place] S/P PERFORATION AFTER COLONOSCOPY History of lithotripsy renal S/P cataract surgery S/P cholecystectomy Family History Mother Squamous cell carcinoma Uterine cancer Breast cancer Hypertension Father Squamous cell carcinoma Breast cancer Hypertension Diabetes Cardiac disorder Family/Other Uterine cancer Breast cancer Denies family history of Ovarian cancer Colorectal cancer Social History Smoking Status: Former smoker Hx Alcohol Use: No Hx Substance Use: No Preferred Language: Ethiopian Communication Ability: Effective Charge Rn Required: No Beliefs That Will Affect Care: None marital status: Current Living Situation: Alone Feels Safe at Home: Yes Assistive Devices: None Review of Systems Review of Systems: Constitutional: denies fevers admits chills, nausea, vomiting, significant weight loss (240-86lbs) Head: admits trauma to her head with fall one week prior Neurologic: admits weakness of the right foot ENT: denies rhinorrhea, stuffiness, sore throat Cardiac: denies chest pain, palpitations GI: denies blood in stool - LBM one day prior : denies urgency, frequency, dysuria Physical Exam 2 Constitutional: + ill appearing and + cachectic; no altered mental status Eyes: PERRL, conjunctivae normal, anicteric sclerae ENMT: external ear and nose normal, oropharynx normal Neck: normal visual inspection Respiratory: normal respiratory effort, lungs clear to auscultation Cardiovascular: Rate/Rhythm: regular rate and regular rhythm Heart Sounds: no murmur Extremities: + pedal edema (1-2 + pitting edema of the lower extremity) Gastrointestinal (Abdomen): normal bowel sounds, soft, nontender, no hepatosp lenomegaly Musculoskeletal: - weakness of dorsiflexion of the right foot Skin: no rashes, warm and dry Psychiatric: Orientation: alert and oriented x 3 Eye Contact: good eye contact Results & Data Results & Data ([facility]) Vital Signs (Past 12 Hours) Vital Signs Temp Pulse Pulse Resp BP BP Pulse Ox 04/07/21 21:34 36.8 C 110 H 15 100/63 96 04/07/21 19:48 85 18 95 04/07/21 19:36 36.6 C 93 H 16 84/56 L 97 04/07/21 19:34 36.5 C 95 H 18 119/69 96 CBC Results Results Complete Blood Count Results: RBC 3.78 M/uL (4.2-5.4) L 04/08/21 WBC 13.08 K/uL (4.8-10.8) H 04/08/21 Hgb 11.7 g/dL (12.0-16.0) L 04/08/21 Hct 35.6 % (37-47) L 04/08/21 Plt Count 182 K/uL (130-400) 04/08/21 Chemistry (BMP) Results BMP Results: Sodium 140 mmol/L (136-145) 04/07/21 Potassium 4.1 mmol/L (3.5-5.1) 04/07/21 Chloride 106 mmol/L (98-107) 04/07/21 Carbon Dioxide 20 mmol/L (21-32) L 04/07/21 Anion Gap 13.0 (3-11) H 04/07/21 BUN 55 mg/dl (7-18) H 04/07/21 Creatinine 1.60 mg/dl (0.6-1.2) H 04/07/21 Glucose 46 mg/dl (70-99) L* 04/07/21 Code Status & VTE Plan VTE Prophylaxis Plan VTE Prophylaxis will be ordered: Yes Supervising Physician Co-Signing Physician Notes Attending addendum: I have physically seen this patient, have supervised the medical residents activities, and agree with the H&P unless as otherwise noted. Assessment and Plan: Partial small bowel obstruction- NPO NG tube to low intermittent suction Zosyn 4.5 g IV every 8 hours Zofran 4 mg IV every 6 hours as needed Famotidine 20 mg IV every 12 hours IV fluids General surgery consult Remaining orders and notations as noted Resident Activity Tracking Resident Involvement: Resident Care Provided Care Provided: Adult Hospital Medicine
[2021-04-08] MEDS ORDERED: PANTOprazole 40 MG in SYRINGE 0 ML IV SCH (05:45)
--- NOTE | 2021-04-08 05:47 | Surgery Progress Note ---
Date of Service April 08, 2021 Assessment & Plan (1) Partial obstruction of small intestine: Plan: Patient has been admitted on the hospitalist service. Care will continue as follows The patient has had an exploratory laparotomy by Dr. 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 Lysis of adhesions was undertaken but no bowel resection was required Dr. Cabrera has since seen patient in outpatient clinic and notes that she is at risk for recurrent small bowel obstructions, but he notes measures to avoid further surgical invention should be employed Maintain n.p.o. status and NG tube until bowel function has improved (fluid drained with insertion of NG tube in excess of 1 L at time of initial insertion last evening Hydrate with IV fluids As needed analgesics and antiemetics should be utilized There is concern that patient has some bloody drainage from her NG tube: Review of outpatient records show the patient does take Coumadin (she suffered a PE during her recent hospitalization) and she also takes prednisone; these medications could both be contributing to this problem Coumadin currently on hold Discussed with medicine consideration of holding prednisone for the present time as well but will defer to their discretion Maintain patient on intravenous proton pump inhibitor Follow serial H&H If bloody NG output persists may need to list the help of gastroenterology At the present time the patient's blood pressure has improved and she is not tachycardic. Therefore I not think acute surgical intervention is needed at this time Would recommend only using SCDs for DVT prevention without chemical means due to the bloody drainage from NG tube We will continue following while patient is hospitalized Admission and Anticipated Discharge Date Admission Date: April 07, 2021 Subjective Patient is resting comfortably in bed. She denies any further nausea vomiting since NG tube placed. She denies any abdominal pain. Since arrival to the emergency department she does not feel she is passing much in the way of flatus but has not had a bowel movement. Bloody drainage has been noted in patient's NG tube. As noted above patient denies any abdominal pain. Physical Exam Gastrointestinal (Abdomen): Abdomen is soft, nondistended, nonpainful to palpation. NG tube is in place with a small amount of bright red blood in the tubing. Results & Data ([facility]) Vital Signs (Past 12 Hours) Vital Signs Temp Pulse Pulse Resp BP BP Pulse Ox 04/08/21 05:07 93 H 107/54 L 94 04/08/21 03:02 84 108/75 97 04/08/21 01:09 88 103/69 93 04/07/21 23:16 101 H 24 120/68 04/07/21 21:34 36.8 C 110 H 15 100/63 96 04/07/21 19:48 85 18 95 04/07/21 19:36 36.6 C 93 H 16 84/56 L 97 04/07/21 19:34 36.5 C 95 H 18 119/69 96 PG Care Time/CCT Total # of Minutes Spent Total Time Spent with Patient: Total time spent is greater than 50% in coordination of care (as documented) at patient's floor/unit and/or counseling patient: Coding Level of Care Code 24218 Subseq Hosp Care Lvl 1 Diagnoses Partial obstruction of small intestine K56.600
[2021-04-08] MEDS ORDERED: traMADol HCL 50 MG TABLET PO PRN (05:52)
[2021-04-08] MEDS ORDERED: PIPERACILL/TAZOBAC CONSULT ACTIVE PRN (05:52)
[2021-04-08] MEDS ORDERED: ACETAMINOPHEN 325 MG TAB PO PRN (05:52)
[2021-04-08] MEDS ORDERED: POLYETHYLENE (MIRALAX) 17 GM PACK PO PRN (05:52)
[2021-04-08] MEDS ORDERED: PIPERACILLIN/TAZOBACTAM 3.375 GM in DEXTROSE 5% 100 ML IV ONE (06:00)
[2021-04-08 06:29] LABS: Eosinophils # (auto) 0.01 K/uL (0-0.5); Eosinophils % (auto) 0.1 %; Hematocrit (blood only) 35.6 % (37-47); Hemoglobin 11.7 g/dL (12.0-16.0); Immature Granulocytes # (auto) 0.02 K/uL (0.00-0.02); Immature Granulocytes % (auto) 0.2 %; Lymphocytes # (auto) 2.02 K/uL (1.2-3.4); Lymphocytes % (auto) 15.4 %; Mean Corpuscular Hgb Conc 32.9 g/dL (32-36); Mean Corpuscular Volume 94.2 fL (80-100); Mean Platelet Volume 11.4 fL (7.4-10.4); Monocytes % (auto) 5.4 %; Neutrophils # (auto) 10.33 K/uL (1.4-6.5); Neutrophils % (auto) 78.9 %; Platelet Count 182 K/uL (130-400); RDW Coefficient of Variation 15.1 % (11.5-14.5); Red Blood Count 3.78 M/uL (4.2-5.4); White Blood Count 13.08 K/uL (4.8-10.8)
[2021-04-08 07:03] LABS: Magnesium 1.4 mg/dl (1.8-2.4); Troponin I 0.207 ng/ml (0-0.045)
[2021-04-08] MEDS: PANTOprazole 40 MG in SYRINGE 0 ML IV SCH ×2 (08:22→21:34)
[2021-04-08] MEDS: FLUTICASONE/VILANTEROL 100/25MCG 14 PUFFS/INHALER INH SCH (08:23)
[2021-04-08] MEDS: predniSONE 10 MG TABLET PO SCH (08:23)
--- NOTE | 2021-04-08 08:53 | XRay Report ---
XR chest 1V portable CLINICAL HISTORY: NG tube placement. COMPARISON STUDY: 04/07/2021 TECHNIQUE: 1 view of the chest FINDINGS: Single frontal view of the chest demonstrates the cardiomediastinal silhouette to be within normal li mits. The lungs are clear of alveolar opacities. There is no evidence for pleural effusion. There is no evidence for vascular congestion. There is no acute osseous pathology. There is a vague nodular de nsity seen involving the posterior right seventh rib. On review of CT of the chest from 02/01/2021, th ere is evidence for a healing rib fracture at this site. An NG tube has been placed with its tip extending just past the GE junction and into the gastric fund us. It should be further advanced. IMPRESSION: No acute cardiopulmonary disease. NG tube should be advanced as described. ACT 112: Negative or not required by law. Electronically signed by: Porter Sandy M.D. 04/08/2021 8:51 AM
--- NOTE | 2021-04-08 10:00 | CT Scan Report ---
CT head/brain wo con CLINICAL HISTORY: fall Technique: Contiguous axial CT images of the head were acquired from the base of the skull to the danial bertha without intravenous contrast administration. Images were viewed in brain, subdural and bone [facility]. Automated dose lowering techniques and/or adjustment according to patient size were utilized for this exam. Comparison: None available at the time of this dictation. Findings: The ventricles, basal cisterns, and cerebral sulci are normal. There is no acute intracranial hemorrh age or evidence of acute territorial infarction. Neither mass effect, shift of the midline structures , nor abnormal extra-axial fluid collections are shown. Imaged portions of the paranasal sinuses and mastoid air cells are clear. The orbits appear normal. There are no acute fractures of the calvaria or scalp swelling. Impression: No acute intracranial hemorrhage, no evidence of acute territorial infarction or other acute intracra nial disease process. ACT 112: Negative or not required by law. Electronically signed by: Damino Prince M.D. 04/08/2021 9:59 AM
--- NOTE | 2021-04-08 10:10 | XCELERA ---
[id number]
--- NOTE | 2021-04-08 11:41 | Hospitalist Progress Note ---
Date of Service April 08, 2021 Assessment & Plan (1) Partial obstruction of small intestine: Plan: Patient had a exploratory laparotomy on 01/29, with lysis of adhesion. However during follow-up outpatient surgery, it was determined that the patient needed further hospitalization on account of worsening symptoms. CT abdomen and pelvis was done which showed evidence of high-grade partial small bowel obstruction. Patient currently on NG tube Keep n.p.o. General surgery on consult, appreciate commendations. Nonsurgical recommendations for now (2) Hypomagnesemia: Plan: Some improvement in serum magnesium after replacement We will recheck magnesium level. Replace if necessary (3) Elevated troponin: Plan: Most likely due to demand ischemia. Serum troponin trending down. No EKG changes. 2D echo did not show any wall motion abnormalities. Appreciate cardiology recommendations. Plan: Continue to hold Coumadin on account of blood in NG tube Admission and Anticipated Discharge Date Admission Date: April 07, 2021 Subjective Patient seen and examined today, nasogastric tube in situ. Patient complains of dry mouth Review of Systems Review of Systems: All systems reviewed are negative, apart from the ones contained in the history. Physical Exam Physical Exam: The patient is awake, alert and oriented 3, well developed and well nourished, normocephalic and atraumatic, lying in bed and in no acute distress. NG tube in situ HEENT--PERRL, EOMI, mucous membranes and oropharynx mildly dry Neck--supple. No JVD. No bruits. Thyroid normal, trachea midline, no adenopathy. Heart--normal S1 and S2. No murmurs, rubs or gallops. Lungs--clear bilaterally, no respiratory distress, no accessory muscle use. Abdomen--hyperactive bowel sounds Extremities--no cyanosis or clubbing. No edema. Dermatologic--normal skin turgor, normal color, no abnormal lymph nodes, no rash. Neurologic--cranial nerves II through XII grossly intact. Rheumatologic--normal range of motion. Psychiatric--normal affect. Results & Data Results & Data ([facility]) Vital Signs (Past 12 Hours) Vital Signs Temp Pulse Pulse Resp BP Pulse Ox 04/08/21 07:15 97.5 F L 88 18 107/69 99 04/08/21 05:07 93 H 107/54 L 94 04/08/21 03:02 84 108/75 97 04/08/21 01:09 88 103/69 93 Laboratory Results Laboratory Results - last 24 hr 04/07/21 04/07/21 04/07/21 20:06 20:06 21:24 WBC RBC Hgb Hct MCV MCH MCHC RDW Std Deviation RDW Coeff of Bo Plt Count MPV Immature Gran % (Auto) Neut % (Auto) Lymph % (Auto) [place] % (Auto) Eos % (Auto) Baso % (Auto) Neut # (Auto) Lymph # (Auto) [place] # (Auto) Eos # (Auto) Baso # (Auto) Immature Gran # (Auto) PT INR APTT PTT Ratio Sodium Potassium Chloride Carbon Dioxide Anion Gap BUN Creatinine Est Cr Clr Drug Dosing Est GFR ( Amer) Est GFR (Non-Af Amer) BUN/Creatinine Ratio Glucose POC Glucose 91 Calcium Magnesium Total Bilirubin AST ALT Alkaline Phosphatase Troponin I Total Protein Albumin Globulin Albumin/Globulin Ratio SARS-CoV-2, RNA, NAAT NEGATIVE Blood Type O Positive Antibody Screen NEGATIVE 04/07/21 04/07/21 04/07/21 Unknown Unknown Unknown WBC 12.89 H RBC 4.25 Hgb 13.4 Hct 39.9 MCV 93.9 MCH 31.5 MCHC 33.6 RDW Std Deviation 51.1 H RDW Coeff of Bo 15.1 H Plt Count 206 MPV 10.8 H Immature Gran % (Auto) 0.3 Neut % (Auto) 81.1 Lymph % (Auto) 14.6 [place] % (Auto) 4.0 Eos % (Auto) 0.0 Baso % (Auto) 0.0 Neut # (Auto) 10.45 H Lymph # (Auto) 1.88 [place] # (Auto) 0.52 Eos # (Auto) 0.00 Baso # (Auto) 0.00 Immature Gran # (Auto) 0.04 H PT 18.2 H INR 1.9 H APTT 31.1 H PTT Ratio 1.2 Sodium 140 Potassium 4.1 Chloride 106 Carbon Dioxide 20 L Anion Gap 13.0 H BUN 55 H Creatinine 1.60 H Est Cr Clr Drug Dosing 21.5 Est GFR ( Amer) 37.7 Est GFR (Non-Af Amer) 32.5 BUN/Creatinine Ratio 34.4 H Glucose 46 L* POC Glucose Calcium 7.2 L Magnesium 0.7 L* Total Bilirubin 0.4 AST 42 H ALT 54 Alkaline Phosphatase 92 Troponin I 0.248 H* Total Protein 5.9 L Albumin 2.3 L Globulin 3.6 Albumin/Globulin Ratio 0.6 L SARS-CoV-2, RNA, NAAT Blood Type Antibody Screen 04/08/21 04/08/21 04/08/21 04:00 04:54 04:54 WBC RBC Hgb Hct MCV MCH MCHC RDW Std Deviation RDW Coeff of Bo Plt Count MPV Immature Gran % (Auto) Neut % (Auto) Lymph % (Auto) [place] % (Auto) Eos % (Auto) Baso % (Auto) Neut # (Auto) Lymph # (Auto) [place] # (Auto) Eos # (Auto) Baso # (Auto) Immature Gran # (Auto) PT INR APTT PTT Ratio Sodium Potassium Chloride Carbon Dioxide Anion Gap BUN Creatinine Est Cr Clr Drug Dosing Est GFR ( Amer) Est GFR (Non-Af Amer) BUN/Creatinine Ratio Glucose POC Glucose 123 H Calcium Magnesium Cancelled 1.4 L Total Bilirubin AST ALT Alkaline Phosphatase Troponin I 0.207 H* Total Protein Albumin Globulin Albumin/Globulin Ratio SARS-CoV-2, RNA, NAAT Blood Type Antibody Screen 04/08/21 05:07 WBC 13.08 H RBC 3.78 L Hgb 11.7 L Hct 35.6 L MCV 94.2 MCH 31.0 MCHC 32.9 RDW Std Deviation 52.0 H RDW Coeff of Bo 15.1 H Plt Count 182 MPV 11.4 H Immature Gran % (Auto) 0.2 Neut % (Auto) 78.9 Lymph % (Auto) 15.4 [place] % (Auto) 5.4 Eos % (Auto) 0.1 Baso % (Auto) 0.0 Neut # (Auto) 10.33 H Lymph # (Auto) 2.02 [place] # (Auto) 0.70 H Eos # (Auto) 0.01 Baso # (Auto) 0.00 Immature Gran # (Auto) 0.02 PT INR APTT PTT Ratio Sodium Potassium Chloride Carbon Dioxide Anion Gap BUN Creatinine Est Cr Clr Drug Dosing Est GFR ( Amer) Est GFR (Non-Af Amer) BUN/Creatinine Ratio Glucose POC Glucose Calcium Magnesium Total Bilirubin AST ALT Alkaline Phosphatase Troponin I Total Protein Albumin Globulin Albumin/Globulin Ratio SARS-CoV-2, RNA, NAAT Blood Type Antibody Screen PG Care Time/CCT Total # of Minutes Spent Total Time Spent with Patient: Total time spent is greater than 50% in coordination of care (as documented) at patient's floor/unit and/or counseling patient: Coding Level of Care Code 63600 Subseq Hosp Care Lvl 2 Diagnoses Partial obstruction of small intestine K56.600 Hypomagnesemia E83.42 Elevated troponin R77.8 Time Spent (min) 35
[2021-04-08] MEDS: PIPERACILLIN/TAZOBACTAM 3.375 GM in DEXTROSE 5% 100 ML IV SCH ×2 (14:45→21:34)
[2021-04-08] MEDS ORDERED: WARFARIN SOD 2.5 MG TAB PO SCH (16:00)
[2021-04-08] MEDS ORDERED: COUGH DROP (SUGAR FREE) LOZ 24 LOZ/1 BOX BUCCAL STA (18:21)
--- NOTE | 2021-04-08 18:21 | Surgery Progress Note ---
Date of Service April 08, 2021 Assessment & Plan (1) Partial obstruction of small intestine: Plan: Patient has been admitted on the hospitalist service. Care will continue as follows The patient has had an exploratory laparotomy by Dr. 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 Lysis of adhesions was undertaken but no bowel resection was required Dr. Cabrera has since seen patient in outpatient clinic and notes that she is at risk for recurrent small bowel obstructions, but he notes measures to avoid further surgical invention should be employed Maintain n.p.o. status and NG tube until bowel function has improved (fluid drained with insertion of NG tube in excess of 1 L at time of initial insertion last evening Hydrate with IV fluids As needed analgesics and antiemetics should be utilized There is concern that patient has some bloody drainage from her NG tube: Review of outpatient records show the patient does take Coumadin (she suffered a PE during her recent hospitalization) and she also takes prednisone; these medications could both be contributing to this problem Coumadin currently on hold Discussed with medicine consideration of holding prednisone for the present time as well but will defer to their discretion Maintain patient on intravenous proton pump inhibitor Follow serial H&H If bloody NG output persists may need to list the help of gastroenterology At the present time the patient's blood pressure has improved and she is not tachycardic. Therefore I not think acute surgical intervention is needed at this time Would recommend only using SCDs for DVT prevention without chemical means due to the bloody drainage from NG tube We will continue following while patient is hospitalized Plan: We will continue with NG decompression add some lozenge her for sore throat Admission and Anticipated Discharge Date Admission Date: April 07, 2021 Subjective Is resting comfortably at this time only complaint that she has a sore throat no abdominal complaints no flatus or bowel movement yet Physical Exam Physical Exam: Is alert coherent watching TV The NG tube in place with minimal drainage nonbloody The abdomen is completely benign no tenderness Results & Data ([facility]) Vital Signs (Past 12 Hours) Vital Signs Temp Pulse Pulse Resp BP Pulse Ox 04/08/21 12:31 36.6 C 91 H 19 98/63 L 97 04/08/21 08:00 88 04/08/21 07:15 36.4 C L 88 18 107/69 99 PG Care Time/CCT Total # of Minutes Spent Total Time Spent with Patient: Total time spent is greater than 50% in coordination of care (as documented) at patient's floor/unit and/or counseling patient: Coding Level of Care Code 32799 Subseq Hosp Care Lvl 1 Diagnoses Partial obstruction of small intestine K56.600
--- NOTE | 2021-04-08 21:40 | Electrocardiogram Report ---
Test Reason : Blood Pressure : / mmHG Vent. Rate : 102 BPM Atrial Rate : 102 BPM P-R Int : 154 ms QRS Dur : 110 ms QT Int : 346 ms P-R-T Axes : 079 -84 059 degrees QTc Int : 450 ms Sinus tachycardia with frequent Premature atrial complexes Left axis deviation Low voltage QRS Inferior-posterior infarct , age undetermined Anterolateral infarct (cited on or before 07-APR-2021) Abnormal ECG When compared with ECG of 01-FEB-2021 20:01, Premature ventricular complexes are no longer Present Inferior-posterior infarct is now Present Premature atrial complexes are now Present Confirmed by Estevan Winter ([id number]) on 04/08/2021 9:40:05 PM Referred By: REFERRED SELF Confirmed By:Estevan Winter
--- NOTE | 2021-04-08 21:42 | Electrocardiogram Report ---
Test Reason : Blood Pressure : / mmHG Vent. Rate : 090 BPM Atrial Rate : 090 BPM P-R Int : 164 ms QRS Dur : 112 ms QT Int : 372 ms P-R-T Axes : 059 -77 037 degrees QTc Int : 455 ms Sinus rhythm with Premature atrial complexes Left axis deviation Low voltage QRS Incomplete right bundle branch block Poor R wave progression, consider anterior DC vs. lead placement vs. LVH Inferior infarct (cited on or before 07-APR-2021) Abnormal ECG When compared with ECG of 07-APR-2021 20:07, Questionable change in initial forces of Anterorlateral leads Confirmed by Estevan Winter ([id number]) on 04/08/2021 9:42:25 PM Referred By: REFERRED SELF Confirmed By:Estevan Winter
[2021-04-08] MEDS ORDERED: DEXTROSE 50% 50 ML SYRINGE IV ONE (23:35)
[2021-04-08] MEDS ORDERED: SODIUM CHLORIDE 0.9% 1000ML 1,000 ML IV SCH (23:45)
[2021-04-09] MEDS ORDERED: DEXTROSE 50% 50 ML SYRINGE IV ONE (00:19)
[2021-04-09] MEDS: D5W AND 1/2NSS 1,000 ML IV SCH ×2 (00:25→14:25)
--- NOTE | 2021-04-09 01:11 | Billing Data ---
Date of Service April 09, 2021 Coding Level of Care Code 65024 Initial Inpt Care Lvl 3
[2021-04-09 01:14] LABS: Appearance Urine Cloudy (Clear); Bacteria Urine Automated Negative (Negative); Bilirubin Urine Negative (Negative); Blood Urine 2+ (Negative); Color Urine Yellow; Epithelial Cell Urine Auto >30 /lpf (0-5); Glucose Urine UA Negative (Negative); Ketones Urine Trace (Negative); Leukocyte Esterase Urine 2+ (Negative); Nitrite Urine Negative (Negative); Protein Urine Trace (Negative); Specific Gravity Urine 1.022 (1.000-1.030); Urobilinogen Urine Negative (Negative); WBC Urine Automated >30 /hpf (0-5)
[2021-04-09] MEDS: PIPERACILLIN/TAZOBACTAM 3.375 GM in DEXTROSE 5% 100 ML IV SCH ×3 (04:54→23:00)
[2021-04-09 05:23] LABS: INR 2.4 (0.9-1.1); Prothrombin Time 22.4 Seconds (9.0-12.0)
[2021-04-09 05:44] LABS: Calcium 7.2 mg/dl (8.5-10.1); Creatinine Clr Calc Pharmacy 24.2 ml/min; Est GFR (African American) 43.6 ml/min; Est GFR (Non-African American) 37.6 ml/min; Potassium 3.1 mmol/L (3.5-5.1)
--- NOTE | 2021-04-09 07:03 | Surgery Progress Note ---
Date of Service April 09, 2021 Assessment & Plan (1) Partial obstruction of small intestine: Plan: At this point I would not clamp the NG tube I would keep her to suction low intermittent until her bowel function returns She is clinically dry fluid status must be addressed a little bit more aggressively but will leave that up to the medical service Admission and Anticipated Discharge Date Admission Date: April 07, 2021 Subjective Denies any abdominal pain wants her NG tube out states passing flatus Physical Exam Physical Exam: Alert coherent in no distress Oral mucosa dry The NG tube has been clamped The abdomen is soft there is no localized tenderness Results & Data ([facility]) Vital Signs (Past 12 Hours) Vital Signs Temp Pulse Pulse Resp BP Pulse Ox 04/09/21 04:20 36.3 C L 83 18 87/60 L 97 04/08/21 23:00 36.4 C L 81 90 17 85/51 L 93 04/08/21 19:37 36.4 C L 81 18 90/57 L 92 PG Care Time/CCT Total # of Minutes Spent Total Time Spent with Patient: Total time spent is greater than 50% in coordination of care (as documented) at patient's floor/unit and/or counseling patient: Coding Level of Care Code 43799 Subseq Hosp Care Lvl 1 Diagnoses Partial obstruction of small intestine K56.600
[2021-04-09 08:35] LABS: Eosinophils # (auto) 0.02 K/uL (0-0.5); Eosinophils % (auto) 0.2 %; Hematocrit (blood only) 36.1 % (37-47); Immature Granulocytes # (auto) 0.02 K/uL (0.00-0.02); Immature Granulocytes % (auto) 0.2 %; Lymphocytes # (auto) 1.59 K/uL (1.2-3.4); Mean Corpuscular Hgb Conc 33.2 g/dL (32-36); Mean Corpuscular Volume 93.3 fL (80-100); Mean Platelet Volume 11.3 fL (7.4-10.4); Neutrophils # (auto) 7.81 K/uL (1.4-6.5); Neutrophils % (auto) 78.6 %; Platelet Count 200 K/uL (130-400); RDW Coefficient of Variation 15.3 % (11.5-14.5); RDW Standard Deviation 51.7 fL (36.4-46.3); Red Blood Count 3.87 M/uL (4.2-5.4); White Blood Count 9.94 K/uL (4.8-10.8)
[2021-04-09] MEDS: POTASSIUM CHLORIDE / WTR 10 MEQ/100 ML PLCT IV SCH ×4 (08:40→11:51)
[2021-04-09] MEDS: FLUTICASONE/VILANTEROL 100/25MCG 14 PUFFS/INHALER INH SCH (08:40)
[2021-04-09] MEDS: PANTOprazole 40 MG in SYRINGE 0 ML IV SCH ×2 (08:40→21:22)
[2021-04-09] MEDS: predniSONE 10 MG TABLET PO SCH (08:41)
[2021-04-09 15:18] LABS: BUN Creatinine Ratio 42.2 (10-20); Calcium 6.9 mg/dl (8.5-10.1); Creatinine Clr Calc Pharmacy 28.3 ml/min; Est GFR (African American) 54.5 ml/min; Potassium 4.1 mmol/L (3.5-5.1)
--- NOTE | 2021-04-09 15:35 | Hospitalist Progress Note ---
Date of Service April 09, 2021 Assessment & Plan (1) Partial obstruction of small intestine: Plan: Ashia Ca is a 70 yo female with PMHx of prior SBO s/o ex lap for lysis of adhesions, PE on anticoagulation, mixed connective tissue disorder, and pneumatosis intestinalis who was admitted to [facility] on 04/07/21 with weakness and vomiting, found to have partial SBO on CT. Partial obstruction of small intestine - Recent admission - had exploratory laparotomy on 01/29/21, with lysis of adhesion. - Record review of outpatient gen surg visit 03/15/21 notes that patient was at risk for having additional bowel obstructions due to her extensive jejunal disease. States that "If admitted to the hospital again with similar symptoms would do everything possible apart from surgery including long-term TPN if necessary." Also states that patient "likely would not tolerate a bowel resection of her disease bowel because of the extent of the disease and risk for short bowel syndrome." - CT abdomen and pelvis 04/07/21: evidence of high-grade partial small bowel obstruction - General surgery on consult, appreciate commendations. Per general surgery, will maintain NG tube on LIS at this time. Continue conservative management. - Will maintain NPO status - Continue IV protonix 40mg po BID - Continue Zosyn for empiric coverage Electrolyte Abnormalities: hypokalemia and hypomagnesemia - Hypomagnesemia at 0.7 on admission. Currently improved at 1.4. - Will recheck magnesium level tomorrow AM and replete if necessary - Hypokalemia at 3.1. Repleting. Will recheck BMP in afternoon; recheck BMP qAM Elevated troponin - Elevated troponin on admission; peaked at 0.248 on 04/07. - Most likely due to demand ischemia. - No EKG changes. - TTE 04/08 did not show any wall motion abnormalities. EF 60-65%. Similar findings compared to prior study 02/02/21. Hypoglycemia - Patient started on D5 1/2 NS overnight 04/08-04/09. - Will continue to monitor. Increased LE edema w/ right calf pain - TTE as noted above - RLE doppler, pending Hx of PE on Warfarin - INR 1.9 on admission. INR today 2.4. - She did have some bleeding in the NG tube. Will hold coumadin at this time. TAB - Resolved with IV hydration Protein Calorie Malnutrition - Consult dietary for TPN Hx of connnective ts ds - Continue prednisone Warfarin Full code (2) Hypoglycemia: (3) Acute hypotension: (4) Hypomagnesemia: (5) Elevated troponin: Admission and Anticipated Discharge Date Admission Date: April 07, 2021 Supervising Physician Co-Signing Physician Notes Resident Physician Supervision Note: I independently interviewed and examined the patient and verified the huston history and physical, reviewed labs and image studies and agree with resident Dr. Mendoza findings and care plan. Subjective Patient seen and evaluated at bedside this morning. To note, she was started on D5 1/2 NS overnight at 80 cc/hr due to hypoglycemia. She has also had soft BPs, with systolic around 80s-90s / diastolics around 50s-60s. Patient states that she feels unchanged from yesterday. She is unhappy with the NG tube and reports associated sore throat. + flatus and feels that she has had a BM yesterday but states that nursing told her it was not a BM. Patient has no other specific concerns. She denies abdominal pain, nausea, CP, SOB, VIDAL, lightheadedness, or dizziness. Review of Systems Review of Systems: See HPI Physical Exam Physical Exam: GENERAL: No acute distress. Thin appearing. Vital signs reviewed as above. EYES: EOMI. Anicteric sclerae. HENT: Dry mucous membranes. NG tube in place on LIS. RESPIRATORY: No acute respiratory distress. Lungs CTA bilaterally w/o wheezing. CARDIOVASCULAR: Regular rate and rhythm. No murmurs. ABDOMEN: Soft, non-tender and non-distended.Normal bowel sounds. EXTREMITIES: 2+ bilateral pedal edema. Right calf tenderness to palpation. Left calf w/o tenderness to palpation. SKIN: Warm, dry. NEUROLOGIC: A/O x3. No focal neurological deficits. PSYCHIATRIC: Cooperative. Appropriate mood and affect. Results & Data Results & Data ([facility]) Vital Signs (Past 12 Hours) Vital Signs Temp Pulse Pulse Resp BP Pulse Ox 04/09/21 11:07 36.4 C L 92 H 12 100/57 L 96 04/09/21 07:35 82 04/09/21 07:28 36.4 C L 86 21 96/55 L 95 04/09/21 04:20 36.3 C L 83 18 87/60 L 97 Laboratory Results 04/09/21 04/09/21 04/09/21 Range/Units 14:23 11:47 04:58 WBC (4.8-10.8) K/uL RBC (4.2-5.4) M/uL Hgb (12.0-16.0) g/dL Hct (37-47) % MCV (80-100) fL MCH (25-34) pg MCHC (32-36) g/dL RDW Std Deviation (36.4-46.3) fL RDW Coeff of Bo (11.5-14.5) % Plt Count (130-400) K/uL MPV (7.4-10.4) fL Immature Gran % (Auto) % Neut % (Auto) % Lymph % (Auto) % [place] % (Auto) % Eos % (Auto) % Baso % (Auto) % Neut # (Auto) (1.4-6.5) K/uL Lymph # (Auto) (1.2-3.4) K/uL [place] # (Auto) (0.11-0.59) K/uL Eos # (Auto) (0-0.5) K/uL Baso # (Auto) (0-0.2) K/uL Immature Gran # (Auto) (0.00-0.02) K/uL PT (9.0-12.0) Seconds INR (0.9-1.1) Sodium 136 (136-145) mmol/L Potassium 4.1 D (3.5-5.1) mmol/L Chloride 109 H (98-107) mmol/L Carbon Dioxide 19 L (21-32) mmol/L Anion Gap 8.0 (3-11) BUN 50 H (7-18) mg/dl Creatinine 1.18 (0.6-1.2) mg/dl Est Cr Clr Drug Dosing 28.3 ml/min Est GFR ( Amer) 54.5 ml/min Est GFR (Non-Af Amer) 47.0 ml/min BUN/Creatinine Ratio 42.2 H (10-20) Glucose 106 H (70-99) mg/dl POC Glucose 91 (70-99) mg/dl Calcium 6.9 L (8.5-10.1) mg/dl Magnesium 1.4 L (1.8-2.4) mg/dl Urine Color Urine Appearance (Clear) Urine pH (4.5-7.5) Ur Specific Simpson (1.000-1.030) Urine Protein (Negative) Urine Glucose (UA) (Negative) Urine Ketones (Negative) Urine Blood (Negative) Urine Nitrite (Negative) Urine Bilirubin (Negative) Urine Urobilinogen (Negative) Ur Leukocyte Esterase (Negative) Urine WBC (Auto) (0-5) /hpf Urine RBC (Auto) (0-4) /hpf U Hyaline Cast (Auto) (0-5) /lpf U Epithel Cells (Auto) (0-5) /lpf Urine Bacteria (Auto) (Negative) 04/09/21 04/09/21 04/09/21 Range/Units 04:58 04:58 04:58 WBC 9.94 (4.8-10.8) K/uL RBC 3.87 L (4.2-5.4) M/uL Hgb 12.0 (12.0-16.0) g/dL Hct 36.1 L (37-47) % MCV 93.3 (80-100) fL MCH 31.0 (25-34) pg MCHC 33.2 (32-36) g/dL RDW Std Deviation 51.7 H (36.4-46.3) fL RDW Coeff of Bo 15.3 H (11.5-14.5) % Plt Count 200 (130-400) K/uL MPV 11.3 H (7.4-10.4) fL Immature Gran % (Auto) 0.2 % Neut % (Auto) 78.6 % Lymph % (Auto) 16.0 % [place] % (Auto) 5.0 % Eos % (Auto) 0.2 % Baso % (Auto) 0.0 % Neut # (Auto) 7.81 H (1.4-6.5) K/uL Lymph # (Auto) 1.59 (1.2-3.4) K/uL Lyon # (Auto) 0.50 (0.11-0.59) K/uL Eos # (Auto) 0.02 (0-0.5) K/uL Baso # (Auto) 0.00 (0-0.2) K/uL Immature Gran # (Auto) 0.02 (0.00-0.02) K/uL PT 22.4 H (9.0-12.0) Seconds INR 2.4 H (0.9-1.1) Sodium 138 (136-145) mmol/L Potassium 3.1 L D (3.5-5.1) mmol/L Chloride 108 H (98-107) mmol/L Carbon Dioxide 22 (21-32) mmol/L Anion Gap 8.0 (3-11) BUN 55 H (7-18) mg/dl Creatinine 1.42 H (0.6-1.2) mg/dl Est Cr Clr Drug Dosing 24.2 ml/min Est GFR ( Amer) 43.6 ml/min Est GFR (Non-Af Amer) 37.6 ml/min BUN/Creatinine Ratio 39.0 H (10-20) Glucose 149 H (70-99) mg/dl POC Glucose (70-99) mg/dl Calcium 7.2 L (8.5-10.1) mg/dl Magnesium (1.8-2.4) mg/dl Urine Color Urine Appearance (Clear) Urine pH (4.5-7.5) Ur Specific Simpson (1.000-1.030) Urine Protein (Negative) Urine Glucose (UA) (Negative) Urine Ketones (Negative) Urine Blood (Negative) Urine Nitrite (Negative) Urine Bilirubin (Negative) Urine Urobilinogen (Negative) Ur Leukocyte Esterase (Negative) Urine WBC (Auto) (0-5) /hpf Urine RBC (Auto) (0-4) /hpf U Hyaline Cast (Auto) (0-5) /lpf U Epithel Cells (Auto) (0-5) /lpf Urine Bacteria (Auto) (Negative) 04/09/21 04/09/21 04/08/21 Range/Units 00:48 00:45 23:57 WBC (4.8-10.8) K/uL RBC (4.2-5.4) M/uL Hgb (12.0-16.0) g/dL Hct (37-47) % MCV (80-100) fL MCH (25-34) pg MCHC (32-36) g/dL RDW Std Deviation (36.4-46.3) fL RDW Coeff of Bo (11.5-14.5) % Plt Count (130-400) K/uL MPV (7.4-10.4) fL Immature Gran % (Auto) % Neut % (Auto) % Lymph % (Auto) % Lyon % (Auto) % Eos % (Auto) % Baso % (Auto) % Neut # (Auto) (1.4-6.5) K/uL Lymph # (Auto) (1.2-3.4) K/uL Lyon # (Auto) (0.11-0.59) K/uL Eos # (Auto) (0-0.5) K/uL Baso # (Auto) (0-0.2) K/uL Immature Gran # (Auto) (0.00-0.02) K/uL PT (9.0-12.0) Seconds INR (0.9-1.1) Sodium (136-145) mmol/L Potassium (3.5-5.1) mmol/L Chloride (98-107) mmol/L Carbon Dioxide (21-32) mmol/L Anion Gap (3-11) BUN (7-18) mg/dl Creatinine (0.6-1.2) mg/dl Est Cr Clr Drug Dosing ml/min Est GFR ( Amer) ml/min Est GFR (Non-Af Amer) ml/min BUN/Creatinine Ratio (10-20) Glucose (70-99) mg/dl POC Glucose 101 H 45 L* (70-99) mg/dl Calcium (8.5-10.1) mg/dl Magnesium (1.8-2.4) mg/dl Urine Color Yellow Urine Appearance Cloudy A (Clear) Urine pH 5.0 (4.5-7.5) Ur Specific Simpson 1.022 (1.000-1.030) Urine Protein Trace H (Negative) Urine Glucose (UA) Negative (Negative) Urine Ketones Trace H (Negative) Urine Blood 2+ H (Negative) Urine Nitrite Negative (Negative) Urine Bilirubin Negative (Negative) Urine Urobilinogen Negative (Negative) Ur Leukocyte Esterase 2+ H (Negative) Urine WBC (Auto) >30 H (0-5) /hpf Urine RBC (Auto) 10-30 H (0-4) /hpf U Hyaline Cast (Auto) 5-10 H (0-5) /lpf U Epithel Cells (Auto) >30 H (0-5) /lpf Urine Bacteria (Auto) Negative (Negative) 04/08/21 Range/Units 23:22 WBC (4.8-10.8) K/uL RBC (4.2-5.4) M/uL Hgb (12.0-16.0) g/dL Hct (37-47) % MCV (80-100) fL MCH (25-34) pg MCHC (32-36) g/dL RDW Std Deviation (36.4-46.3) fL RDW Coeff of Bo (11.5-14.5) % Plt Count (130-400) K/uL MPV (7.4-10.4) fL Immature Gran % (Auto) % Neut % (Auto) % Lymph % (Auto) % Lyon % (Auto) % Eos % (Auto) % Baso % (Auto) % Neut # (Auto) (1.4-6.5) K/uL Lymph # (Auto) (1.2-3.4) K/uL Lyon # (Auto) (0.11-0.59) K/uL Eos # (Auto) (0-0.5) K/uL Baso # (Auto) (0-0.2) K/uL Immature Gran # (Auto) (0.00-0.02) K/uL PT (9.0-12.0) Seconds INR (0.9-1.1) Sodium (136-145) mmol/L Potassium (3.5-5.1) mmol/L Chloride (98-107) mmol/L Carbon Dioxide (21-32) mmol/L Anion Gap (3-11) BUN (7-18) mg/dl Creatinine (0.6-1.2) mg/dl Est Cr Clr Drug Dosing ml/min Est GFR ( Amer) ml/min Est GFR (Non-Af Amer) ml/min BUN/Creatinine Ratio (10-20) Glucose (70-99) mg/dl POC Glucose 56 L* (70-99) mg/dl Calcium (8.5-10.1) mg/dl Magnesium (1.8-2.4) mg/dl Urine Color Urine Appearance (Clear) Urine pH (4.5-7.5) Ur Specific Simpson (1.000-1.030) Urine Protein (Negative) Urine Glucose (UA) (Negative) Urine Ketones (Negative) Urine Blood (Negative) Urine Nitrite (Negative) Urine Bilirubin (Negative) Urine Urobilinogen (Negative) Ur Leukocyte Esterase (Negative) Urine WBC (Auto) (0-5) /hpf Urine RBC (Auto) (0-4) /hpf U Hyaline Cast (Auto) (0-5) /lpf U Epithel Cells (Auto) (0-5) /lpf Urine Bacteria (Auto) (Negative) Resident Activity Tracking Resident Involvement: Resident Care Provided Care Provided: Adult Hospital Medicine
[2021-04-09] MEDS ORDERED: PNEUMOCOCCAL POLYSACCHARIDES 25 MCG/0.5 ML VIAL/SYR IM ONE (15:49)
[2021-04-09] MEDS ORDERED: TPN/PPN CONSULT PHARMACY PRN (16:42)
[2021-04-09] MEDS: MAGNESIUM SULFATE / D5W 1 GM/100 ML BAG IV SCH ×3 (18:01→21:22)
[2021-04-10] MEDS: MAGNESIUM SULFATE / D5W 1 GM/100 ML BAG IV SCH (00:27)
[2021-04-10] MEDS: D5W AND 1/2NSS 1,000 ML IV SCH ×2 (00:27→13:28)
[2021-04-10] MEDS ORDERED: Heparin IV Adult Wt-Based Standard *NO* Bolus Protocol IV STA (02:01)
[2021-04-10] MEDS ORDERED: HEPARIN SODIUM/DEXTROSE 25,000 UNITS/500 ML BAG IV SCH (02:15)
[2021-04-10 03:22] LABS: Eosinophils # (auto) 0.03 K/uL (0-0.5); Eosinophils % (auto) 0.3 %; Hematocrit (blood only) 33.6 % (37-47); Hemoglobin 11.8 g/dL (12.0-16.0); Immature Granulocytes # (auto) 0.02 K/uL (0.00-0.02); Immature Granulocytes % (auto) 0.2 %; Lymphocytes # (auto) 1.62 K/uL (1.2-3.4); Lymphocytes % (auto) 17.5 %; Mean Corpuscular Hemoglobin 32.4 pg (25-34); Mean Corpuscular Volume 92.3 fL (80-100); Mean Platelet Volume 10.2 fL (7.4-10.4); Monocytes # (auto) 0.46 K/uL (0.11-0.59); Neutrophils # (auto) 7.13 K/uL (1.4-6.5); Platelet Count 136 K/uL (130-400); RDW Standard Deviation 51.1 fL (36.4-46.3); Red Blood Count 3.64 M/uL (4.2-5.4); White Blood Count 9.26 K/uL (4.8-10.8)
[2021-04-10 03:27] LABS: Mean Corpuscular Hgb Conc 35.1 g/dL (32-36)
[2021-04-10 03:33] LABS: INR 2.7 (0.9-1.1); Partial Thromboplastin Ratio 1.6; Partial Thromboplastin Time 40.9 Seconds (21.0-31.0)
[2021-04-10 03:58] LABS: BUN Creatinine Ratio 39.5 (10-20); Est GFR (African American) 60.7 ml/min; Est GFR (Non-African American) 52.3 ml/min; Magnesium 2.1 mg/dl (1.8-2.4); Phosphorus 1.9 mg/dl (2.5-4.9); Potassium 3.4 mmol/L (3.5-5.1)
[2021-04-10] MEDS: PIPERACILLIN/TAZOBACTAM 3.375 GM in DEXTROSE 5% 100 ML IV SCH (06:12)
--- NOTE | 2021-04-10 07:11 | Ultrasound Report ---
US venous doppler LE RT CLINICAL HISTORY: right calf pain, pedal edema COMPARISON: None available at the time of this dictation. TECHNIQUE: Right lower extremity real-time compression venous ultrasound with Color Doppler imaging. Utilizing real-time ultrasonic imaging multiple real time high-resolution ultrasonic images with comp ression and noncompression maneuvers of the deep venous system in addition to color doppler imaging w ere performed from the common femoral vein through the proximal calf veins. FINDINGS: Acute humeral thrombus is seen in the right distal common femoral vein, also affecting part of the pr oximal superficial femoral vein and profunda femoris vein. Impression: Deep venous thrombus in the common femoral vein with extension to the superficial femoral vein and pr ofunda femoris vein. ACT 112: Negative or not required by law. Electronically signed by: Damion Prince M.D. 04/10/2021 7:10 AM
[2021-04-10] MEDS ORDERED: POTASSIUM PHOS 3 MMOL/1 ML INFUSION IV STA (07:32)
--- NOTE | 2021-04-10 07:57 | Surgery Progress Note ---
Date of Service April 10, 2021 Assessment & Plan (1) Partial obstruction of small intestine: Plan: improving WBC remains [address] Arboleda will remove NG and start clears, will advance slowly Admission and Anticipated Discharge Date Admission Date: April 07, 2021 Subjective only complaint is being cold, has had several BMs Physical Exam Gastrointestinal (Abdomen): Inspection/Auscultation: + abdomen distended (minimal) Percussion/Palpation: abdomen soft; abdomen nontender and no guarding Results & Data ([facility]) Vital Signs (Past 12 Hours) Vital Signs Temp Pulse Resp BP BP Pulse Ox 04/10/21 04:25 36.8 C 95 H 22 128/53 L 95 04/10/21 00:00 36.6 C 68 18 101/66 97 04/09/21 20:00 37 C 75 20 88/48 L 96 PG Care Time/CCT Total # of Minutes Spent Total Time Spent with Patient: Total time spent is greater than 50% in coordination of care (as documented) at patient's floor/unit and/or counseling patient: Coding Level of Care Code 51687 Subseq Hosp Care Lvl 1 Diagnoses Partial obstruction of small intestine K56.600
[2021-04-10] MEDS: predniSONE 10 MG TABLET PO SCH (08:13)
[2021-04-10] MEDS: FLUTICASONE/VILANTEROL 100/25MCG 14 PUFFS/INHALER INH SCH (08:13)
[2021-04-10] MEDS: PANTOprazole 40 MG in SYRINGE 0 ML IV SCH ×2 (08:13→21:21)
[2021-04-10] MEDS ORDERED: POTASSIUM PHOSPHATE 15 MMOL in SODIUM CHLORIDE 0.9% 250 ML IV ONE (08:15)
--- NOTE | 2021-04-10 11:20 | Hospitalist Progress Note ---
Date of Service April 10, 2021 Assessment & Plan (1) Partial obstruction of small intestine: Plan: Ashia Ca is a 70 yo female with PMHx of prior SBO s/o ex lap for lysis of adhesions, PE on anticoagulation, mixed connective tissue disorder, and pneumatosis intestinalis who was admitted to [facility] on 04/07/21 with weakness and vomiting, found to have partial SBO on CT. Partial obstruction of small intestine - Recent admission - had exploratory laparotomy on 01/29/21, with lysis of adhesion. - Record review of outpatient gen surg visit 03/15/21 notes that patient was at risk for having additional bowel obstructions due to her extensive jejunal disease. States that "If admitted to the hospital again with similar symptoms would do everything possible apart from surgery including long-term TPN if necessary." Also states that patient "likely would not tolerate a bowel resection of her disease bowel because of the extent of the disease and risk for short bowel syndrome." - CT abdomen and pelvis 04/07/21: evidence of high-grade partial small bowel obstruction - General surgery on consult, appreciate commendations. -Per general surgery, NG tube removed this AM and diet re-started with [facility], will advance per their recommendations. Continue conservative management. - Received Zosyn q8h from 04/08 to 04/10 for empiric coverage; discontinued Zosyn 04/10 - Continue IV protonix 40mg po BID DVT - TTE as noted above - RLE doppler 04/09: DVT in the common femoral vein with extension to the superficial femoral vein and profunda femoris vein. - INR currently 2.7. Will discontinue coumadin. - Will recheck INR tomorrow AM. Plan to start Lovenox 40mg SQ BID on 04/11 Electrolyte Abnormalities: hypokalemia, hypomagnesemia, hypophosphatemia - Hypomagnesemia at 0.7 on admission. Currently resolved. Magnesium today 2.1. - Will continue to check magnesium level qAM and replete if necessary - Hypokalemia, improving. Continue to check BMP qAM and replete as indicated. - Hypophosphatemia at 1.9 today. Repleting and will recheck tomorrow AM Elevated troponin - Elevated troponin on admission; peaked at 0.248 on 04/07. - Most likely due to demand ischemia. - No EKG changes. - TTE 04/08 did not show any wall motion abnormalities. EF 60-65%. Similar findings compared to prior study 02/02/21. Hypoglycemia - Patient started on D5 1/2 NS overnight 04/08-04/09. Continue with IVF at this time. - Will continue to monitor. Hx of PE on Warfarin - INR 1.9 on admission. INR today 2.7. - Acute DVT as noted above. See DVT for management. TAB - Resolved with IV hydration Severe Protein Calorie Malnutrition - Consulted dietary for TPN. However, per general surgery patient is now starting with a diet and will hold further TPN consult. Scleroderma - Continue prednisone Lovenox to be started 04/11 as noted above Full code (2) Hypoglycemia: (3) Acute hypotension: (4) Hypomagnesemia: (5) Elevated troponin: Admission and Anticipated Discharge Date Admission Date: April 07, 2021 Supervising Physician Co-Signing Physician Notes Resident Physician Supervision Note: I independently interviewed and examined the patient and verified the huston history and physical, reviewed labs and image studies and agree with resident Dr. Mendoza findings and care plan. Subjective Patient seen and evaluated at bedside this morning. NG tube removed and she was able to take a few sips of a clear liquid diet/broth. Reports fatigue, weakness, and feeling cold. Denies CP, SOB, cough, abdominal pain, nausea, or vomiting. + flatus and multiple bowel movements yesterday. Review of Systems Review of Systems: See HPI Physical Exam Physical Exam: GENERAL: No acute distress. Thin appearing. Vital signs reviewed as above. EYES: EOMI. Anicteric sclerae. HENT: Dry mucous membranes. RESPIRATORY: No acute respiratory distress. Anterior lung allen CTA bilaterally w/o wheezing. CARDIOVASCULAR: Regular rate and rhythm. No murmurs. ABDOMEN: Soft, non-tender and non-distended.Normal bowel sounds. SKIN: Warm, dry. NEUROLOGIC: A/O x3. No focal neurological deficits. PSYCHIATRIC: Cooperative. Appropriate mood and affect. Results & Data Results & Data ([facility]) Vital Signs (Past 12 Hours) Vital Signs Temp Pulse Pulse Resp BP Pulse Ox 04/10/21 08:00 36.3 C L 66 70 20 108/69 90 04/10/21 04:25 36.8 C 95 H 22 128/53 L 95 04/10/21 00:00 36.6 C 68 18 101/66 97 Laboratory Results 04/10/21 04/10/21 04/10/21 Range/Units 10:08 03:13 03:13 WBC 9.26 (4.8-10.8) K/uL RBC 3.64 L (4.2-5.4) M/uL Hgb 11.8 L (12.0-16.0) g/dL Hct 33.6 L (37-47) % MCV 92.3 (80-100) fL MCH 32.4 (25-34) pg MCHC 35.1 (32-36) g/dL RDW Std Deviation 51.1 H (36.4-46.3) fL RDW Coeff of Bo 15.0 H (11.5-14.5) % Plt Count 136 (130-400) K/uL MPV 10.2 (7.4-10.4) fL Immature Gran % (Auto) 0.2 % Neut % (Auto) 77.0 % Lymph % (Auto) 17.5 % [place] % (Auto) 5.0 % Eos % (Auto) 0.3 % Baso % (Auto) 0.0 % Neut # (Auto) 7.13 H (1.4-6.5) K/uL Lymph # (Auto) 1.62 (1.2-3.4) K/uL [place] # (Auto) 0.46 (0.11-0.59) K/uL Eos # (Auto) 0.03 (0-0.5) K/uL Baso # (Auto) 0.00 (0-0.2) K/uL Immature Gran # (Auto) 0.02 (0.00-0.02) K/uL PT 25.0 H (9.0-12.0) Seconds INR 2.7 H (0.9-1.1) APTT 40.9 H (21.0-31.0) Seconds PTT Ratio 1.6 Sodium (136-145) mmol/L Potassium (3.5-5.1) mmol/L Chloride (98-107) mmol/L Carbon Dioxide (21-32) mmol/L Anion Gap (3-11) BUN (7-18) mg/dl Creatinine (0.6-1.2) mg/dl Est Cr Clr Drug Dosing ml/min Est GFR ( Amer) ml/min Est GFR (Non-Af Amer) ml/min BUN/Creatinine Ratio (10-20) Glucose (70-99) mg/dl POC Glucose 74 (70-99) mg/dl Calcium (8.5-10.1) mg/dl Phosphorus (2.5-4.9) mg/dl Magnesium (1.8-2.4) mg/dl Hepatitis C Ab Screen (Neg) 04/10/21 04/10/21 04/10/21 Range/Units 03:13 03:13 00:40 WBC (4.8-10.8) K/uL RBC (4.2-5.4) M/uL Hgb (12.0-16.0) g/dL Hct (37-47) % MCV (80-100) fL MCH (25-34) pg MCHC (32-36) g/dL RDW Std Deviation (36.4-46.3) fL RDW Coeff of Bo (11.5-14.5) % Plt Count (130-400) K/uL MPV (7.4-10.4) fL Immature Gran % (Auto) % Neut % (Auto) % Lymph % (Auto) % [place] % (Auto) % Eos % (Auto) % Baso % (Auto) % Neut # (Auto) (1.4-6.5) K/uL Lymph # (Auto) (1.2-3.4) K/uL [place] # (Auto) (0.11-0.59) K/uL Eos # (Auto) (0-0.5) K/uL Baso # (Auto) (0-0.2) K/uL Immature Gran # (Auto) (0.00-0.02) K/uL PT (9.0-12.0) Seconds INR (0.9-1.1) APTT (21.0-31.0) Seconds PTT Ratio Sodium 136 (136-145) mmol/L Potassium 3.4 L D (3.5-5.1) mmol/L Chloride 109 H (98-107) mmol/L Carbon Dioxide 20 L (21-32) mmol/L Anion Gap 7.0 (3-11) BUN 43 H (7-18) mg/dl Creatinine 1.08 (0.6-1.2) mg/dl Est Cr Clr Drug Dosing 31.0 ml/min Est GFR ( Amer) 60.7 ml/min Est GFR (Non-Af Amer) 52.3 ml/min BUN/Creatinine Ratio 39.5 H (10-20) Glucose 85 (70-99) mg/dl POC Glucose 103 H (70-99) mg/dl Calcium 7.0 L (8.5-10.1) mg/dl Phosphorus 1.9 L (2.5-4.9) mg/dl Magnesium 2.1 (1.8-2.4) mg/dl Hepatitis C Ab Screen Neg (Neg) 04/09/21 04/09/21 04/09/21 Range/Units 18:56 14:23 11:47 WBC (4.8-10.8) K/uL RBC (4.2-5.4) M/uL Hgb (12.0-16.0) g/dL Hct (37-47) % MCV (80-100) fL MCH (25-34) pg MCHC (32-36) g/dL RDW Std Deviation (36.4-46.3) fL RDW Coeff of Bo (11.5-14.5) % Plt Count (130-400) K/uL MPV (7.4-10.4) fL Immature Gran % (Auto) % Neut % (Auto) % Lymph % (Auto) % [place] % (Auto) % Eos % (Auto) % Baso % (Auto) % Neut # (Auto) (1.4-6.5) K/uL Lymph # (Auto) (1.2-3.4) K/uL [place] # (Auto) (0.11-0.59) K/uL Eos # (Auto) (0-0.5) K/uL Baso # (Auto) (0-0.2) K/uL Immature Gran # (Auto) (0.00-0.02) K/uL PT (9.0-12.0) Seconds INR (0.9-1.1) APTT (21.0-31.0) Seconds PTT Ratio Sodium 136 (136-145) mmol/L Potassium 4.1 D (3.5-5.1) mmol/L Chloride 109 H (98-107) mmol/L Carbon Dioxide 19 L (21-32) mmol/L Anion Gap 8.0 (3-11) BUN 50 H (7-18) mg/dl Creatinine 1.18 (0.6-1.2) mg/dl Est Cr Clr Drug Dosing 28.3 ml/min Est GFR ( Amer) 54.5 ml/min Est GFR (Non-Af Amer) 47.0 ml/min BUN/Creatinine Ratio 42.2 H (10-20) Glucose 106 H (70-99) mg/dl POC Glucose 110 H 91 (70-99) mg/dl Calcium 6.9 L (8.5-10.1) mg/dl Phosphorus (2.5-4.9) mg/dl Magnesium (1.8-2.4) mg/dl Hepatitis C Ab Screen (Neg) Diagnostic Findings US venous doppler LE RT CLINICAL HISTORY: right calf pain, pedal edema COMPARISON: None available at the time of this dictation. TECHNIQUE: Right lower extremity real-time compression venous ultrasound with Color Doppler imaging. Utilizing real-time ultrasonic imaging multiple real time high-resolution ultrasonic images with compression and noncompression maneuvers of the deep venous system in addition to color doppler imaging were performed from the common femoral vein through the proximal calf veins. FINDINGS: Acute humeral thrombus is seen in the right distal common femoral vein, also affecting part of the proximal superficial femoral vein and profunda femoris vein. Impression: Deep venous thrombus in the common femoral vein with extension to the superficial femoral vein and profunda femoris vein. ACT 112: Negative or not required by law. Electronically signed by: Damion Prince M.D. 04/10/2021 7:10 AM Resident Activity Tracking Resident Involvement: Resident Care Provided Care Provided: Adult Hospital Medicine
[2021-04-10 14:04] LABS: BUN Creatinine Ratio 32.3 (10-20); Calcium 7.2 mg/dl (8.5-10.1); Creatinine Clr Calc Pharmacy 31.3 ml/min; Est GFR (African American) 59.3 ml/min; Est GFR (Non-African American) 51.2 ml/min; Phosphorus 3.2 mg/dl (2.5-4.9)
[2021-04-10 17:24] LABS: Magnesium 2.2 mg/dl (1.8-2.4)
[2021-04-11] MEDS: D5W AND 1/2NSS 1,000 ML IV SCH ×4 (06:50→19:34)
[2021-04-11] MEDS: predniSONE 10 MG TABLET PO SCH (07:50)
[2021-04-11] MEDS: PANTOprazole 40 MG in SYRINGE 0 ML IV SCH ×2 (07:51→20:04)
[2021-04-11] MEDS: FLUTICASONE/VILANTEROL 100/25MCG 14 PUFFS/INHALER INH SCH (07:51)
--- NOTE | 2021-04-11 08:43 | Surgery Progress Note ---
Date of Service April 11, 2021 Assessment & Plan (1) Partial obstruction of small intestine: Plan: Patient continues to improve She tolerated NGT removal yesterday and the start of clear liquids She has no abdominal complaints. Pt has + bowel function We will advance to full liquids for lunch and if tolerates can continue to advance as tolerates. Will add Boost supplementation as she reports a history of some weight loss. Can hold off on PPN for now Hopefully can limit BID blood draws as electrolytes improving Admission and Anticipated Discharge Date Admission Date: April 07, 2021 Subjective Patient reports feeling well from an abdominal standpoint. Denies any discomfort. She is tolerating clear liquids, no nausea/vomiting. She is passing multiple BM's. Her main complaint is painful arms from multiple blood draw attempts. Physical Exam Physical Exam: awake/alert Respiratory: normal respiratory effort Gastrointestinal (Abdomen): Inspection/Auscultation: abdomen not distended Percussion/Palpation: abdomen soft; abdomen nontender Results & Data ([facility]) Vital Signs (Past 12 Hours) Vital Signs Temp Pulse Resp BP Pulse Ox 04/11/21 07:00 36.4 C L 84 18 108/59 L 95 04/11/21 03:09 36.6 C 78 18 108/67 95 04/11/21 00:00 36.5 C 04/10/21 23:00 36.4 C L 84 14 103/56 L 95 PG Care Time/CCT Total # of Minutes Spent Total Time Spent with Patient: Total time spent is greater than 50% in coordination of care (as documented) at patient's floor/unit and/or counseling patient: Coding Level of Care Code 19138 Subseq Hosp Care Lvl 1 Diagnoses Partial obstruction of small intestine K56.600
[2021-04-11] MEDS ORDERED: ENOXAPARIN 1 MG/KG SQ SCH (10:30)
--- NOTE | 2021-04-11 10:52 | Hospitalist Progress Note ---
Date of Service April 11, 2021 Assessment & Plan (1) Partial obstruction of small intestine: Plan: Ashia Ca is a 70 yo female with PMHx of prior SBO s/o ex lap for lysis of adhesions, PE on anticoagulation, mixed connective tissue disorder, and pneumatosis intestinalis who was admitted to [facility] on 04/07/21 with weakness and vomiting, found to have partial SBO on CT. Partial obstruction of small intestine - Recent admission - had exploratory laparotomy on 01/29/21, with lysis of adhesion. - Record review of outpatient gen surg visit 03/15/21 notes that patient was at risk for having additional bowel obstructions due to her extensive jejunal disease. States that "If admitted to the hospital again with similar symptoms would do everything possible apart from surgery including long-term TPN if necessary." Also states that patient "likely would not tolerate a bowel resection of her disease bowel because of the extent of the disease and risk for short bowel syndrome." - CT abdomen and pelvis 04/07/21: evidence of high-grade partial small bowel obstruction - General surgery on consult, appreciate commendations. -Per general surgery, NG tube removed 04/11 and diet re-started with [facility]. Will continue to advance per their recommendations. Continue conservative management. - Received Zosyn q8h from 04/08 to 04/10 for empiric coverage; discontinued Zosyn 04/10 - Continue IV protonix 40mg po BID Severe Protein Calorie Malnutrition - Consulted dietary for PPN. However, per general surgery patient is now starting with a diet and will hold further consult. - Nutrition still following for nutritional support. Appreciate their recommendations. - Patient agreeable to trial of po nutritional supplement to help improve protein intake - GI consulted for weight loss, decreased appetite, and hx of scleroderma; consult pending. DVT - TTE as noted above - RLE doppler 04/09: DVT in the common femoral vein with extension to the superficial femoral vein and profunda femoris vein. - Most recent INR 2.7. INR for today is pending. - Started Lovenox 40mg SQ BID on 04/11 Electrolyte Abnormalities: hypokalemia, hypomagnesemia, hypophosphatemia - Will continue to monitor electrolytes and replete as indicated. Elevated troponin - Elevated troponin on admission; peaked at 0.248 on 04/07. - Most likely due to demand ischemia. - No EKG changes. - TTE 04/08 did not show any wall motion abnormalities. EF 60-65%. Similar findings compared to prior study 02/02/21. Hypoglycemia - Patient started on D5 1/2 NS overnight 04/08-04/09. Continue with IVF at this time. - Will continue to monitor. Hx of PE on Warfarin - INR 1.9 on admission. INR today 2.7. - Acute DVT as noted above. See DVT for management. TAB - Resolved with IV hydration Scleroderma - Continue prednisone Lovenox started 04/11 as noted above Full code (2) Hypoglycemia: (3) Acute hypotension: (4) Hypomagnesemia: (5) Elevated troponin: Admission and Anticipated Discharge Date Admission Date: April 07, 2021 Supervising Physician Co-Signing Physician Notes Resident Physician Supervision Note: I independently interviewed and examined the patient and verified the huston history and physical, reviewed labs and image studies and agree with resident Dr. Mendoza findings and care plan. Subjective Patient seen and evaluated at bedside this morning. States that she feels much better and not as cold with the bear-hugger. Patient complains of b/l arm pain associated w/ the frequent sticks for blood draws w/o blood return; is refusing further labs at this time. Is tolerating clear liquid diet w/o abdominal pain, nausea, or vomiting. Reports having multiple (she believes 4) bowel movements overnight. Denies CP, SOB, VIDAL, lightheadedness, or dizziness. Review of Systems Review of Systems: See HPI Physical Exam Physical Exam: GENERAL: No acute distress. Thin appearing. Vital signs reviewed as above. EYES: EOMI. Anicteric sclerae. HENT: Dry mucous membranes. RESPIRATORY: No acute respiratory distress. Anterior lung allen CTA bilaterally w/o wheezing. CARDIOVASCULAR: Regular rate and rhythm. No murmurs. ABDOMEN: Soft, non-tender and non-distended.Normal bowel sounds. SKIN: Warm, dry. 3+ b/l pedal edema. NEUROLOGIC: A/O x3. No focal neurological deficits. PSYCHIATRIC: Cooperative. Appropriate mood and affect. Results & Data Results & Data ([facility]) Vital Signs (Past 12 Hours) Vital Signs Temp Pulse Pulse Resp BP Pulse Ox 04/11/21 09:50 82 04/11/21 07:00 36.4 C L 84 18 108/59 L 95 12/15/21 03:09 36.6 C 78 18 108/67 95 04/11/21 00:00 36.5 C 04/10/21 23:00 36.4 C L 84 14 103/56 L 95 Resident Activity Tracking Resident Involvement: Resident Care Provided Care Provided: Adult Hospital Medicine
--- NOTE | 2021-04-11 19:14 | Gastrointestinal Consultation ---
Date of Consultation April 11, 2021 Assessment & Plan (1) Partial obstruction of small intestine: (2) Pneumatosis intestinalis: Impression is that Ms. Ca has a distal small bowel obstruction which is resolving with conservative management and is likely related to abdominal adhesions. There is a history of pneumatosis intestinalis involving the entire jejunum in January 2021, but this does not appear to be present on CT scan this admission. The patient states she was told by consultants at [facility] that she has a mixed connective tissue disease. These records will need to be reviewed. I agree with other consultants with the current plan of care (conservative management) and with labeling strategist recommendations, and at this time I have no additional recommendations regarding medical management and nutritional management. Further recommendations to follow review of past records and imaging and lab studies. We will follow the patient and assist in care as needed. History of Present Illness Reason for Consultation: Episode of high grade distal small bowel obstruction, now resolving clinically Attending Physician: Regi Mata MD History of Present Illness Ms Ca was admitted 04-07-21 with one week history of abdominal pain, nausea, vomiting, inability to tolerate anything PO, CT scan without contrast revealed a high grade distal small bowel obstruction with transition point just proximal to the terminal ileum, with dilated proximal small bowel loops and dilated stomach. She has responded to conservative management and today diet was advanced from clear liquids to solid food without abdominal pain, nausea, vomiting. The patient attributes the start of all of her digestive problems to a perforated colon at colonoscopy in 2018, with subsequent R hemicolectomy and prolonged post op ileus and recovery. Since then, she has had multiple episodes of bowel obstruction. 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 she had laparotomy with lysis of adhesions, she recovered bowel function and was discharged. In February 2021, she states she was eating a regular unrestricted diet, avoiding dairy products due to lactose intolerance, but able to eat regular food without abdominal pain, nausea, vomiting. Patient states she was evaluated at [facility] in the past and was told that she had mixed connective tissue disease involving the intestinal tract. Allergies Allergy/AdvReac Type Severity Reaction Status Date / Time latex Allergy Unknown Unknown Verified 04/07/21 20:49 leflunomide AdvReac Unknown Unknown Verified 04/07/21 20:49 Home Medications Medication Instructions Recorded Confirmed Type budesonide-formoterol HFA 160 1 puff INHALATION DIRECTED 10/19/19 04/07/21 History mcg-4.5 mcg/actuation aerosol inhaler (Symbicort) hydroxychloroquine 200 mg tablet 200 mg PO DAILY 03/10/20 04/07/21 History ergocalciferol (vitamin D2) 1,250 50,000 unit PO .QTUESDAY 01/29/21 04/07/21 History mcg (50,000 unit) capsule prednisone 10 mg tablet 10 mg PO DAILY 01/29/21 04/07/21 History pantoprazole 40 mg tablet,delayed 40 mg PO BID #60 tab 02/18/21 04/07/21 Rx release tramadol 50 mg tablet 50 mg PO UD PRN 04/07/21 04/07/21 History warfarin 5 mg tablet 2.5 mg PO DAILY 04/07/21 04/07/21 History Patient History Medical History (Updated 04/11/21 @ 19:07 by Norman Gabriel MD) Heart disease Kidney stones Mixed connective tissue disease Pulmonary emboli Restrictive lung disease SBO (small bowel obstruction) Sepsis Surgical History History of ankle surgery History of bowel resection X 2 AT [facility] S/P PERFORATION AFTER COLONOSCOPY History of lithotripsy renal S/P cataract surgery S/P cholecystectomy Family History Mother Squamous cell carcinoma Uterine cancer Breast cancer Hypertension Father Squamous cell carcinoma Breast cancer Hypertension Diabetes Cardiac disorder Family/Other Uterine cancer Breast cancer Denies family history of Ovarian cancer Colorectal cancer Social History Smoking Status: Former smoker Hx Alcohol Use: No Hx Substance Use: No Preferred Language: Nepalese Communication Ability: Effective Lead Technical Writer Required: No Beliefs That Will Affect Care: None marital status: Current Living Situation: Alone Other Information That Helps Us Care for You: No Feels Safe at Home: Yes Safety Concerns: Feels Safe At This Time Assistive Devices: Cane and Walker Review of Systems Review of Systems: All systems reviewed & are unremarkable except as noted in Subjective Physical Exam Constitutional: Thin, elderly, in no distress at rest Respiratory: normal respiratory effort, lungs clear to auscultation Gastrointestinal (Abdomen): The abdomen is moderately distended and tympanitic to percussion, with hypoactive abnormal bowel sounds. There is no tenderness or guarding, and no rebound tenderness, the abdomen is soft to palpation, no detectable hepatosplenomegaly or ascites Neurologic: No focal neurologic signs Results & Data ([facility]) Vital Signs (Past 12 Hours) Vital Signs Temp Pulse Pulse Resp BP Pulse Ox 04/11/21 18:12 75 127/54 L 04/11/21 16:44 90 18 115/78 95 04/11/21 12:00 36.6 C 80 18 111/64 96 04/11/21 09:50 82 04/11/21 07:00 36.4 C L 84 18 108/59 L 95 Laboratory Results Laboratory Results WBC 9.26 K/uL (4.8-10.8) 04/10/21 03:13 RBC 3.64 M/uL (4.2-5.4) L 04/10/21 03:13 Hgb 11.8 g/dL (12.0-16.0) L 04/10/21 03:13 Hct 33.6 % (37-47) L 04/10/21 03:13 MCV 92.3 fL (80-100) 04/10/21 03:13 MCH 32.4 pg (25-34) 04/10/21 03:13 MCHC 35.1 g/dL (32-36) 04/10/21 03:13 RDW Std Deviation 51.1 fL (36.4-46.3) H 04/10/21 03:13 RDW Coeff of Bo 15.0 % (11.5-14.5) H 04/10/21 03:13 Plt Count 136 K/uL (130-400) 04/10/21 03:13 MPV 10.2 fL (7.4-10.4) 04/10/21 03:13 Immature Gran % (Auto) 0.2 % 04/10/21 03:13 Neut % (Auto) 77.0 % 04/10/21 03:13 Lymph % (Auto) 17.5 % 04/10/21 03:13 [place] % (Auto) 5.0 % 04/10/21 03:13 Eos % (Auto) 0.3 % 04/10/21 03:13 Baso % (Auto) 0.0 % 04/10/21 03:13 Neut # (Auto) 7.13 K/uL (1.4-6.5) H 04/10/21 03:13 Lymph # (Auto) 1.62 K/uL (1.2-3.4) 04/10/21 03:13 [place] # (Auto) 0.46 K/uL (0.11-0.59) 04/10/21 03:13 Eos # (Auto) 0.03 K/uL (0-0.5) 04/10/21 03:13 Baso # (Auto) 0.00 K/uL (0-0.2) 04/10/21 03:13 Immature Gran # (Auto) 0.02 K/uL (0.00-0.02) 04/10/21 03:13 PT 25.0 Seconds (9.0-12.0) H 04/10/21 03:13 INR 2.7 (0.9-1.1) H 04/10/21 03:13 APTT 40.9 Seconds (21.0-31.0) H 04/10/21 03:13 PTT Ratio 1.6 04/10/21 03:13 Sodium 140 mmol/L (136-145) 04/10/21 12:54 Potassium 4.0 mmol/L (3.5-5.1) D 04/10/21 15:32 Chloride 111 mmol/L (98-107) H 04/10/21 12:54 Carbon Dioxide 16 mmol/L (21-32) L 04/10/21 12:54 Anion Gap 13.0 (3-11) H 04/10/21 12:54 BUN 36 mg/dl (7-18) H 04/10/21 12:54 Creatinine 1.10 mg/dl (0.6-1.2) 04/10/21 12:54 Est Cr Clr Drug Dosing 31.3 ml/min 04/10/21 12:54 Est GFR ( Amer) 59.3 ml/min 04/10/21 12:54 Est GFR (Non-Af Amer) 51.2 ml/min 04/10/21 12:54 BUN/Creatinine Ratio 32.3 (10-20) H 04/10/21 12:54 Glucose 109 mg/dl (70-99) H 04/10/21 12:54 POC Glucose 101 mg/dl (70-99) H 04/11/21 17:25 Calcium 7.2 mg/dl (8.5-10.1) L 04/10/21 12:54 Phosphorus 3.2 mg/dl (2.5-4.9) D 04/10/21 12:54 Magnesium 2.2 mg/dl (1.8-2.4) 04/10/21 15:32 Total Bilirubin 0.4 mg/dl (0.2-1) 04/07/21 Unknown AST 42 U/L (15-37) H 04/07/21 Unknown ALT 54 (12-78) 04/07/21 Unknown Alkaline Phosphatase 92 U/L (45-117) 04/07/21 Unknown Troponin I 0.195 ng/ml (0-0.045) H* 04/08/21 11:46 Total Protein 5.9 gm/dl (6.4-8.2) L 04/07/21 Unknown Albumin 2.3 gm/dl (3.4-5.0) L 04/07/21 Unknown Globulin 3.6 gm/dl (2.5-4.0) 04/07/21 Unknown Albumin/Globulin Ratio 0.6 (0.9-2) L 04/07/21 Unknown Specimen Hemolysis 04/10/21 15:32 Urine Color Yellow 04/09/21 00:45 Urine Appearance Cloudy (Clear) A 04/09/21 00:45 Urine pH 5.0 (4.5-7.5) 04/09/21 00:45 Ur Specific [place] 1.022 (1.000-1.030) 04/09/21 00:45 Urine Protein Trace (Negative) H 04/09/21 00:45 Urine Glucose (UA) Negative (Negative) 04/09/21 00:45 Urine Ketones Trace (Negative) H 04/09/21 00:45 Urine Blood 2+ (Negative) H 04/09/21 00:45 Urine Nitrite Negative (Negative) 04/09/21 00:45 Urine Bilirubin Negative (Negative) 04/09/21 00:45 Urine Urobilinogen Negative (Negative) 04/09/21 00:45 Ur Leukocyte Esterase 2+ (Negative) H 04/09/21 00:45 Urine WBC (Auto) >30 /hpf (0-5) H 04/09/21 00:45 Urine RBC (Auto) 10-30 /hpf (0-4) H 04/09/21 00:45 U Hyaline Cast (Auto) 5-10 /lpf (0-5) H 04/09/21 00:45 U Epithel Cells (Auto) >30 /lpf (0-5) H 04/09/21 00:45 Urine Bacteria (Auto) Negative (Negative) 04/09/21 00:45 Hepatitis C Ab Screen Neg (Neg) 04/10/21 03:13 SARS-CoV-2, RNA, NAAT NEGATIVE (NEGATIVE) 04/07/21 20:06 Blood Type O Positive 04/07/21 20:06 Antibody Screen NEGATIVE 04/07/21 20:06 Impressions Abdomen/Pelvis CT 04/07/21 19:48 CT abd pelvis wo con CLINICAL HISTORY: Vomiting and abdominal pain. Evaluate for small bowel obstruction COMPARISON STUDY: 02/03/2021 CT DOSE: 238.03 mGy.cm TECHNIQUE: Standard CT of the Abdomen and Pelvis was performed without IV contrast. The patient did not receive oral contrast. A dose lowering technique was utilized adhering to the principles of ALARA. FINDINGS: Lung base: The lung bases are clear. There is a calcified granuloma at the right lung base. Abdominal cavity: There is no evidence for abdominal mass, adenopathy or ascites. Liver: The liver is homogeneous in attenuation on these limited noncontrast images.. Spleen: The spleen is homogeneous in attenuation on these limited noncontrast images. Calcified granuloma are present. Pancreas: The pancreas is homogeneous in attenuation on these limited noncontrast images. Gall Bladder: Surgical clips are present previous cholecystectomy. Adrenal glands: The adrenal glands are normal in size and attenuation on these limited noncontrast images. Kidneys: The kidneys are homogeneous in attenuation on these limited noncontrast images. There is no evidence for gross renal mass, calculus or hydronephrosis bilaterally. Bowel: There is a high-grade partial small bowel obstruction present within the lower abdomen with what appears to be transition zone in the distal ileum. There is moderate to marked dilatation of small bowel loops proximal to this site and decompression of the terminal ileum and colon. Fluid levels are seen throughout the dilated small bowel. The stomach is also distended with liquid and food stuff. There is evidence for previous colonic resection the right upper quadrant with an end anastomosis. There are no inflammatory changes present. There is no evidence for free air. Bladder: There is no evidence for focal bladder wall thickening, calculus or diverticulum. : There is no evidence for pelvic mass or adenopathy. Vasculature: There is no evidence for focal aneurysmal dilatation of the abdominal aorta. Osseous structures: There is no acute osseous pathology. Degenerative changes are seen within the spine. IMPRESSION: 1. High-grade partial small bowel obstruction within the lower pelvis, most likely due to adhesions within the distal ileum. There is a site of transition demonstrated. 2. The terminal ileum is decompressed as is the colon. 3. No other evidence for acute intra-abdominal or pelvic abnormality on these limited noncontrast images. ACT 112: Negative or not required by law. Electronically signed by: Porter Sandy M.D. 04/07/2021 9:07 PM Chest X-Ray 04/07/21 23:34 XR chest 1V portable CLINICAL HISTORY: NG tube placement. COMPARISON STUDY: 04/07/2021 TECHNIQUE: 1 view of the chest FINDINGS: Single frontal view of the chest demonstrates the cardiomediastinal silhouette to be within normal limits. The lungs are clear of alveolar opacities. There is no evidence for pleural effusion. There is no evidence for vascular congestion. There is no acute osseous pathology. There is a vague nodular density seen involving the posterior right seventh rib. On review of CT of the chest from 02/01/2021, there is evidence for a healing rib fracture at this site. An NG tube has been placed with its tip extending just past the GE junction and into the gastric fundus. It should be further advanced. IMPRESSION: No acute cardiopulmonary disease. NG tube should be advanced as described. ACT 112: Negative or not required by law. Electronically signed by: Porter Sandy M.D. 04/08/2021 8:[address] 04/08/21 05:52 CT head/brain wo con CLINICAL HISTORY: fall Technique: Contiguous axial CT images of the head were acquired from the base of the skull to the vertex without intravenous contrast administration. Images were viewed in brain, subdural and bone windows. Automated dose lowering techniques and/or adjustment according to patient size were utilized for this exam. Comparison: None available at the time of this dictation. Findings: The ventricles, basal cisterns, and cerebral sulci are normal. There is no acute intracranial hemorrhage or evidence of acute territorial infarction. Neither mass effect, shift of the midline structures, nor abnormal extra-axial fluid collections are shown. Imaged portions of the paranasal sinuses and mastoid air cells are clear. The orbits appear normal. There are no acute fractures of the calvaria or scalp swelling. Impression: No acute intracranial hemorrhage, no evidence of acute territorial infarction or other acute intracranial disease process. ACT 112: Negative or not required by law. Electronically signed by: Damion Prince M.D. 04/08/2021 9:59 AM Venous Doppler Study 04/09/21 13:19 US venous doppler LE RT CLINICAL HISTORY: right calf pain, pedal edema COMPARISON: None available at the time of this dictation. TECHNIQUE: Right lower extremity real-time compression venous ultrasound with Color Doppler imaging. Utilizing real-time ultrasonic imaging multiple real time high-resolution ultrasonic images with compression and noncompression maneuvers of the deep venous system in addition to color doppler imaging were performed from the common femoral vein through the proximal calf veins. FINDINGS: Acute humeral thrombus is seen in the right distal common femoral vein, also affecting part of the proximal superficial femoral vein and profunda femoris vein. Impression: Deep venous thrombus in the common femoral vein with extension to the superficial femoral vein and profunda femoris vein. ACT 112: Negative or not required by law. Electronically signed by: Damion Prince M.D. 04/10/2021 7:10 AM
[2021-04-11 19:44] LABS: Eosinophils # (auto) 0.02 K/uL (0-0.5); Eosinophils % (auto) 0.3 %; Hematocrit (blood only) 36.5 % (37-47); Immature Granulocytes # (auto) 0.02 K/uL (0.00-0.02); Immature Granulocytes % (auto) 0.3 %; Lymphocytes # (auto) 0.92 K/uL (1.2-3.4); Lymphocytes % (auto) 14.1 %; Mean Corpuscular Hemoglobin 30.8 pg (25-34); Mean Corpuscular Hgb Conc 32.9 g/dL (32-36); Mean Corpuscular Volume 93.8 fL (80-100); Mean Platelet Volume 10.5 fL (7.4-10.4); Monocytes # (auto) 0.29 K/uL (0.11-0.59); Monocytes % (auto) 4.4 %; Neutrophils # (auto) 5.27 K/uL (1.4-6.5); Neutrophils % (auto) 80.9 %; Platelet Count 178 K/uL (130-400); RDW Standard Deviation 50.8 fL (36.4-46.3); Red Blood Count 3.89 M/uL (4.2-5.4); White Blood Count 6.52 K/uL (4.8-10.8)
[2021-04-11 20:16] LABS: BUN Creatinine Ratio 24.4 (10-20); Calcium 6.8 mg/dl (8.5-10.1); Creatinine Clr Calc Pharmacy 41.7 ml/min; Est GFR (African American) 84.6 ml/min; Magnesium 1.7 mg/dl (1.8-2.4); Phosphorus 1.8 mg/dl (2.5-4.9); Potassium 3.2 mmol/L (3.5-5.1)
[2021-04-11] MEDS ORDERED: POTASSIUM CHLORIDE CRTAB 20 MEQ TABCR PO STA (20:46)
[2021-04-11] MEDS: ENOXAPARIN INJ 40 MG/0.4 ML SYR SQ SCH (21:09)
[2021-04-12] MEDS: D5W AND 1/2NSS 1,000 ML IV SCH ×3 (00:57→21:51)
[2021-04-12 06:00] LABS: INR 2.4 (0.9-1.1); Prothrombin Time 22.9 Seconds (9.0-12.0)
[2021-04-12 06:05] LABS: Albumin Level 1.7 gm/dl (3.4-5.0); BUN Creatinine Ratio 24.2 (10-20); Calcium 6.8 mg/dl (8.5-10.1); Creatinine Clr Calc Pharmacy 46.2 ml/min; Est GFR (African American) 95.8 ml/min; Est GFR (Non-African American) 82.7 ml/min; Magnesium 1.5 mg/dl (1.8-2.4); Potassium 3.7 mmol/L (3.5-5.1)
[2021-04-12 06:10] LABS: Albumin Globulin Ratio 0.6 (0.9-2); Bilirubin,Total 0.4 mg/dl (0.2-1); Phosphorus 1.2 mg/dl (2.5-4.9); Total Protein 4.7 gm/dl (6.4-8.2)
[2021-04-12 06:12] LABS: Eosinophils # (auto) 0.02 K/uL (0-0.5); Eosinophils % (auto) 0.3 %; Hematocrit (blood only) 39.8 % (37-47); Hemoglobin 13.3 g/dL (12.0-16.0); Immature Granulocytes # (auto) 0.03 K/uL (0.00-0.02); Immature Granulocytes % (auto) 0.4 %; Lymphocytes # (auto) 1.89 K/uL (1.2-3.4); Lymphocytes % (auto) 26.4 %; Mean Corpuscular Hemoglobin 30.9 pg (25-34); Mean Corpuscular Hgb Conc 33.4 g/dL (32-36); Mean Corpuscular Volume 92.3 fL (80-100); Monocytes # (auto) 0.44 K/uL (0.11-0.59); Monocytes % (auto) 6.2 %; Neutrophils # (auto) 4.77 K/uL (1.4-6.5); Neutrophils % (auto) 66.7 %; Platelet Count 162 K/uL (130-400); RDW Coefficient of Variation 14.9 % (11.5-14.5); RDW Standard Deviation 50.7 fL (36.4-46.3); Red Blood Count 4.31 M/uL (4.2-5.4); White Blood Count 7.15 K/uL (4.8-10.8)
[2021-04-12] MEDS ORDERED: POTASSIUM PHOS 3 MMOL/1 ML INFUSION IV STA (06:57)
[2021-04-12] MEDS ORDERED: POTASSIUM PHOSPHATE 21 MMOL in SODIUM CHLORIDE 0.9% 500 ML IV ONE (07:30)
--- NOTE | 2021-04-12 08:35 | Surgery Progress Note ---
Date of Service April 12, 2021 Assessment & Plan (1) Partial obstruction of small intestine: Plan: Nothing surgically that needs to be done there we will sign off reconsult us on an as-needed basis Admission and Anticipated Discharge Date Admission Date: April 07, 2021 Subjective Feels much better on solid foods although she needs to choose dishes that she can chew better No belly pain her bowels are moving Physical Exam Physical Exam: Alert coherent resting comfortably No abdominal issues Results & Data ([facility]) Vital Signs (Past 12 Hours) Vital Signs Temp Pulse Pulse Resp BP Pulse Ox 04/12/21 07:34 36.7 C 85 20 96/62 L 95 04/12/21 03:20 90 16 132/78 96 04/12/21 00:05 36.4 C L 83 16 133/94 96 04/11/21 23:52 88 PG Care Time/CCT Total # of Minutes Spent Total Time Spent with Patient: Total time spent is greater than 50% in coordination of care (as documented) at patient's floor/unit and/or counseling patient: Coding Level of Care Code 24347 Subseq Hosp Care Lvl 2 Diagnoses Partial obstruction of small intestine K56.600
[2021-04-12] MEDS: MAGNESIUM SULFATE / D5W 1 GM/100 ML BAG IV SCH ×2 (08:38→11:11)
--- NOTE | 2021-04-12 08:38 | Gastroenterology Progress Note ---
Date of Service April 12, 2021 Assessment & Plan (1) Partial obstruction of small intestine: Plan: The patient is a pleasant 70-year-old female with complicated past medical history outlined in HPI who unfortunately presented with a distal small bowel obstruction. Small bowel obstruction is resolving with conservative management. Most likely related to abdominal adhesions. Continue current plan of care (conservative management) and follow roustabout pusher recommendations for her weight loss. She follows with gastroenterology and rheumatology in [place]. We will ensure that she has outpatient hospital follow-up and that her GI provider in [place] is aware of her recent admission. Please refer to supervising physician addendum for further recommendations. Admission and Anticipated Discharge Date Admission Date: April 07, 2021 Supervising Physician Co-Signing Physician Notes Reviewed CORTEZ Lopez note above. Pt not seen today by me. DR Mata informed me the patient did not want to see me and Dr Mata will be pursuing other GI follow up. Will sign off. Subjective The patient is awake alert and oriented this morning lying in position of comfort on the bed. She denies any abdominal pain this morning. She states she feels tired and very weak. She states she feels as though she has little control of her legs and has to pick them up in order to move them. She denies any nausea. She has had no vomiting overnight. She reports that she has been passing a lot of gas. She did have a bowel movement after eating oatmeal this morning. Weight 44 kg currently, 11/29/2020 weight at [facility] 48.7 kg. The patient follows with gastroenterology at . Most recent office visit note from 01/02/[address] Gutierrez is reviewed. Colonoscopy 09/2019 complicated by perforation of the proximal colon which required emergency exploratory laparotomy and eventual right hemicolectomy with small bowel to colonic anastomosis. 01/13/2020 CT findings demonstrated pneumatosis intestinalis and patient had another exploratory laparotomy with lysis of adhesions. [address] abdomen pelvis demonstrated extensive pneumatosis intestinalis. At that time managed with bowel rest and TPN which was discontinued 01/2020. Unfortunately developed a partial small bowel obstruction treated with bowel rest and ultimately restarted TPN which was discontinued 04/05/2020. She does follow with rheumatology for mixed connective tissue disease (most likely a variant of systemic sclerosis per 11/[address] Bhusal) she is on hydroxychloroquine and prednisone, prescribed metronidazole 5 days each month due to concerns for SIBO. She has had noted weight loss at the time of her office visit totalling 25.9 kg since onset of abdominal complications. Patient has had a negative lactulose breath test for SIBO. Negative celiac disease based on serologies. Stool elastase and quality fecal fat were both normal. She saw a roustabout pusher and was told to try gluten- free diet but did not feel as though this helped. She has been following a SIBO/low fermentation diet and feels as though it is helpful. In order for gastric emptying testing to evaluate for gastroparesis was placed at this visit. She is a lifetime non-smoker. She denies any alcohol intake. She denies use of recreational drugs including marijuana. She is with no children. She is retired and worked for a physical [employer] at the [employer] for 40+ years. She lives alone but does have caregivers that come in to assist her with her care needs. Review of Systems Review of Systems: All systems reviewed & are unremarkable except as noted in Subjective Physical Exam Gastrointestinal (Abdomen): Inspection/Auscultation: abdomen normal to inspection and normal bowel sounds; abdomen not distended Percussion/Palpation: abdomen soft; abdomen nontender, no guarding and abdomen not rigid Results & Data ([facility]) Vital Signs (Past 12 Hours) Vital Signs Temp Pulse Pulse Resp BP Pulse Ox 04/12/21 07:34 36.7 C 85 20 96/62 L 95 04/12/21 03:20 90 16 132/78 96 04/12/21 00:05 36.4 C L 83 16 133/94 96 04/11/21 23:52 88 Laboratory Results Laboratory Results - last 24 hr 04/11/21 04/11/21 04/11/21 11:25 17:25 19:35 WBC 6.52 RBC 3.89 L Hgb 12.0 Hct 36.5 L MCV 93.8 MCH 30.8 MCHC 32.9 RDW Std Deviation 50.8 H RDW Coeff of Bo 15.0 H Plt Count 178 MPV 10.5 H Immature Gran % (Auto) 0.3 Neut % (Auto) 80.9 Lymph % (Auto) 14.1 [place] % (Auto) 4.4 Eos % (Auto) 0.3 Baso % (Auto) 0.0 Neut # (Auto) 5.27 Lymph # (Auto) 0.92 L [place] # (Auto) 0.29 Eos # (Auto) 0.02 Baso # (Auto) 0.00 Immature Gran # (Auto) 0.02 PT INR Sodium Potassium Chloride Carbon Dioxide Anion Gap BUN Creatinine Est Cr Clr Drug Dosing Est GFR ( Amer) Est GFR (Non-Af Amer) BUN/Creatinine Ratio Glucose POC Glucose 93 101 H Calcium Phosphorus Magnesium Total Bilirubin AST ALT Alkaline Phosphatase Total Protein Albumin Globulin Albumin/Globulin Ratio 04/11/21 04/11/21 04/12/21 19:35 23:52 05:23 WBC 7.15 RBC 4.31 Hgb 13.3 Hct 39.8 MCV 92.3 MCH 30.9 MCHC 33.4 RDW Std Deviation 50.7 H RDW Coeff of Bo 14.9 H Plt Count 162 MPV 11.0 H Immature Gran % (Auto) 0.4 Neut % (Auto) 66.7 Lymph % (Auto) 26.4 [place] % (Auto) 6.2 Eos % (Auto) 0.3 Baso % (Auto) 0.0 Neut # (Auto) 4.77 Lymph # (Auto) 1.89 [place] # (Auto) 0.44 Eos # (Auto) 0.02 Baso # (Auto) 0.00 Immature Gran # (Auto) 0.03 H PT INR Sodium 139 Potassium 3.2 L D Chloride 112 H Carbon Dioxide 19 L Anion Gap 8.0 BUN 20 H Creatinine 0.82 Est Cr Clr Drug Dosing 41.7 Est GFR ( Amer) 84.6 Est GFR (Non-Af Amer) 73.0 BUN/Creatinine Ratio 24.4 H Glucose 98 POC Glucose 87 Calcium 6.8 L Phosphorus 1.8 L D Magnesium 1.7 L Total Bilirubin AST ALT Alkaline Phosphatase Total Protein Albumin Globulin Albumin/Globulin Ratio 04/12/21 04/12/21 04/12/21 05:23 05:23 06:08 WBC RBC Hgb Hct MCV MCH MCHC RDW Std Deviation RDW Coeff of Bo Plt Count MPV Immature Gran % (Auto) Neut % (Auto) Lymph % (Auto) [place] % (Auto) Eos % (Auto) Baso % (Auto) Neut # (Auto) Lymph # (Auto) [place] # (Auto) Eos # (Auto) Baso # (Auto) Immature Gran # (Auto) PT 22.9 H INR 2.4 H Sodium 139 Potassium 3.7 D Chloride 114 H Carbon Dioxide 18 L Anion Gap 7.0 BUN 18 Creatinine 0.74 Est Cr Clr Drug Dosing 46.2 Est GFR ( Amer) 95.8 Est GFR (Non-Af Amer) 82.7 BUN/Creatinine Ratio 24.2 H Glucose 88 POC Glucose 78 Calcium 6.8 L Phosphorus 1.2 L* Magnesium 1.5 L Total Bilirubin 0.4 AST 44 H ALT 61 Alkaline Phosphatase 89 Total Protein 4.7 L Albumin 1.7 L Globulin 3.0 Albumin/Globulin Ratio 0.6 L
[2021-04-12] MEDS: predniSONE 10 MG TABLET PO SCH (08:39)
[2021-04-12] MEDS: PANTOprazole 40 MG in SYRINGE 0 ML IV SCH ×2 (08:39→21:49)
[2021-04-12] MEDS: FLUTICASONE/VILANTEROL 100/25MCG 14 PUFFS/INHALER INH SCH (08:40)
[2021-04-12] MEDS: ENOXAPARIN INJ 40 MG/0.4 ML SYR SQ SCH ×2 (08:59→21:50)
--- NOTE | 2021-04-12 11:35 | Hospitalist Progress Note ---
Date of Service April 12, 2021 Assessment & Plan (1) Partial obstruction of small intestine: Plan: Ashia Ca is a 70 yo female with PMHx of prior SBO s/o ex lap for lysis of adhesions, PE on anticoagulation, mixed connective tissue disorder, and pneumatosis intestinalis who was admitted to [facility] on 04/07/21 with weakness and vomiting, found to have partial SBO on CT. Partial obstruction of small intestine - Recent admission - had exploratory laparotomy on 01/29/21, with lysis of adhesion. - Record review of outpatient gen surg visit 03/15/21 notes that patient was at risk for having additional bowel obstructions due to her extensive jejunal disease. States that "If admitted to the hospital again with similar symptoms would do everything possible apart from surgery including long-term TPN if necessary." Also states that patient "likely would not tolerate a bowel resection of her disease bowel because of the extent of the disease and risk for short bowel syndrome." - CT abdomen and pelvis 04/07/21: evidence of high-grade partial small bowel obstruction - General surgery on consult, appreciate commendations. -Per general surgery, NG tube removed 04/11 and diet re-started with [facility]. Currently on low fiber diet; toleraitng well. Will continue to advance per their recommendations. Continue conservative management. - Received Zosyn q8h from 04/08 to 04/10 for empiric coverage; discontinued Zosyn 04/10 - Continue IV protonix 40mg po BID Severe Protein Calorie Malnutrition - Consulted dietary for PPN. However, per general surgery patient is now starting with a diet and will hold further consult. - Nutrition still following for nutritional support. Appreciate their recommendations. - Patient agreeable to trial of po nutritional supplement to help improve protein intake - GI consulted: agrees with plan for conservative management DVT - RLE doppler 04/09: DVT in the common femoral vein with extension to the superficial femoral vein and profunda femoris vein. - DVT while on coumadin. INRs were fluctating - Started Lovenox 40mg SQ BID on 04/11 Electrolyte Abnormalities: hypokalemia, hypomagnesemia, hypophosphatemia - Will continue to monitor electrolytes and replete as indicated. - Recheck BMP, mag, and phos tomorrow AM Elevated troponin - Elevated troponin on admission; peaked at 0.248 on 04/07. - Most likely due to demand ischemia. - No EKG changes. - TTE 04/08 did not show any wall motion abnormalities. EF 60-65%. Similar findings compared to prior study 02/02/21. Hypoglycemia - Patient started on D5 1/2 NS overnight 04/08-04/09. Continue with IVF at this time. - Will continue to monitor. Hx of PE on Warfarin - INR 1.9 on admission. INR today 2.7. - Acute DVT as noted above. See DVT for management. TAB - Resolved with IV hydration Scleroderma - Continue prednisone Lovenox started 04/11 as noted above Downgrade to H-care Full code - PT/OT -- recommending inpatient rehab. Continue PT/OT during current hospitalization. (2) Hypoglycemia: (3) Acute hypotension: (4) Hypomagnesemia: (5) Elevated troponin: Admission and Anticipated Discharge Date Admission Date: April 07, 2021 Supervising Physician Co-Signing Physician Notes Resident Physician Supervision Note: I independently interviewed and examined the patient and verified the huston history and physical, reviewed labs and image studies and agree with resident Dr. Mendoza findings and care plan. Subjective Patient seen and evaluated at bedside this morning. Reports no specific concerns. Is tolerating advancement of diet (had oatmeal for breakfast) without abdominal pain, nausea, or vomiting. Denies CP, SOB, VIDAL, lightheadedness, or dizziness. Review of Systems Review of Systems: See HPI Physical Exam Physical Exam: GENERAL: No acute distress. Thin appearing. Vital signs reviewed as above. EYES: EOMI. Anicteric sclerae. HENT: Dry mucous membranes. RESPIRATORY: No acute respiratory distress. Anterior lung allen CTA bilaterally w/o wheezing. CARDIOVASCULAR: Regular rate and rhythm. No murmurs. ABDOMEN: Soft, non-tender and non-distended. Normal bowel sounds. SKIN: Warm, dry. NEUROLOGIC: A/O x3. No focal neurological deficits. PSYCHIATRIC: Cooperative. Appropriate mood and affect. Results & Data Results & Data ([facility]) Vital Signs (Past 12 Hours) Vital Signs Temp Pulse Pulse Resp BP Pulse Ox 04/12/21 11:17 36.7 C 94 H 20 113/77 96 04/12/21 07:34 36.7 C 85 20 96/62 L 95 04/12/21 03:20 90 16 132/78 96 04/12/21 00:05 36.4 C L 83 16 133/94 96 04/11/21 23:52 88 Laboratory Results 04/12/21 04/12/21 04/12/21 Range/Units 12:14 11:50 06:08 WBC (4.8-10.8) K/uL RBC (4.2-5.4) M/uL Hgb (12.0-16.0) g/dL Hct (37-47) % MCV (80-100) fL MCH (25-34) pg MCHC (32-36) g/dL RDW Std Deviation (36.4-46.3) fL RDW Coeff of Bo (11.5-14.5) % Plt Count (130-400) K/uL MPV (7.4-10.4) fL Immature Gran % (Auto) % Neut % (Auto) % Lymph % (Auto) % [place] % (Auto) % Eos % (Auto) % Baso % (Auto) % Neut # (Auto) (1.4-6.5) K/uL Lymph # (Auto) (1.2-3.4) K/uL [place] # (Auto) (0.11-0.59) K/uL Eos # (Auto) (0-0.5) K/uL Baso # (Auto) (0-0.2) K/uL Immature Gran # (Auto) (0.00-0.02) K/uL PT (9.0-12.0) Seconds INR (0.9-1.1) Sodium 138 (136-145) mmol/L Potassium 4.0 (3.5-5.1) mmol/L Chloride 113 H (98-107) mmol/L Carbon Dioxide 19 L (21-32) mmol/L Anion Gap 6.0 (3-11) BUN 19 H (7-18) mg/dl Creatinine 0.79 (0.6-1.2) mg/dl Est Cr Clr Drug Dosing 46.7 ml/min Est GFR ( Amer) 88.5 ml/min Est GFR (Non-Af Amer) 76.4 ml/min BUN/Creatinine Ratio 24.3 H (10-20) Glucose 106 H (70-99) mg/dl POC Glucose 94 78 (70-99) mg/dl Calcium 7.1 L (8.5-10.1) mg/dl Phosphorus (2.5-4.9) mg/dl Magnesium (1.8-2.4) mg/dl Total Bilirubin (0.2-1) mg/dl AST (15-37) U/L ALT (12-78) Alkaline Phosphatase (45-117) U/L Total Protein (6.4-8.2) gm/dl Albumin (3.4-5.0) gm/dl Globulin (2.5-4.0) gm/dl Albumin/Globulin Ratio (0.9-2) 04/12/21 04/12/21 04/12/21 Range/Units 05:23 05:23 05:23 WBC 7.15 (4.8-10.8) K/uL RBC 4.31 (4.2-5.4) M/uL Hgb 13.3 (12.0-16.0) g/dL Hct 39.8 (37-47) % MCV 92.3 (80-100) fL MCH 30.9 (25-34) pg MCHC 33.4 (32-36) g/dL RDW Std Deviation 50.7 H (36.4-46.3) fL RDW Coeff of Bo 14.9 H (11.5-14.5) % Plt Count 162 (130-400) K/uL MPV 11.0 H (7.4-10.4) fL Immature Gran % (Auto) 0.4 % Neut % (Auto) 66.7 % Lymph % (Auto) 26.4 % [place] % (Auto) 6.2 % Eos % (Auto) 0.3 % Baso % (Auto) 0.0 % Neut # (Auto) 4.77 (1.4-6.5) K/uL Lymph # (Auto) 1.89 (1.2-3.4) K/uL [place] # (Auto) 0.44 (0.11-0.59) K/uL Eos # (Auto) 0.02 (0-0.5) K/uL Baso # (Auto) 0.00 (0-0.2) K/uL Immature Gran # (Auto) 0.03 H (0.00-0.02) K/uL PT 22.9 H (9.0-12.0) Seconds INR 2.4 H (0.9-1.1) Sodium 139 (136-145) mmol/L Potassium 3.7 D (3.5-5.1) mmol/L Chloride 114 H (98-107) mmol/L Carbon Dioxide 18 L (21-32) mmol/L Anion Gap 7.0 (3-11) BUN 18 (7-18) mg/dl Creatinine 0.74 (0.6-1.2) mg/dl Est Cr Clr Drug Dosing 46.2 ml/min Est GFR ( Amer) 95.8 ml/min Est GFR (Non-Af Amer) 82.7 ml/min BUN/Creatinine Ratio 24.2 H (10-20) Glucose 88 (70-99) mg/dl POC Glucose (70-99) mg/dl Calcium 6.8 L (8.5-10.1) mg/dl Phosphorus 1.2 L* (2.5-4.9) mg/dl Magnesium 1.5 L (1.8-2.4) mg/dl Total Bilirubin 0.4 (0.2-1) mg/dl AST 44 H (15-37) U/L ALT 61 (12-78) Alkaline Phosphatase 89 (45-117) U/L Total Protein 4.7 L (6.4-8.2) gm/dl Albumin 1.7 L (3.4-5.0) gm/dl Globulin 3.0 (2.5-4.0) gm/dl Albumin/Globulin Ratio 0.6 L (0.9-2) 04/11/21 04/11/21 04/11/21 Range/Units 23:52 19:35 19:35 WBC 6.52 (4.8-10.8) K/uL RBC 3.89 L (4.2-5.4) M/uL Hgb 12.0 (12.0-16.0) g/dL Hct 36.5 L (37-47) % MCV 93.8 (80-100) fL MCH 30.8 (25-34) pg MCHC 32.9 (32-36) g/dL RDW Std Deviation 50.8 H (36.4-46.3) fL RDW Coeff of Bo 15.0 H (11.5-14.5) % Plt Count 178 (130-400) K/uL MPV 10.5 H (7.4-10.4) fL Immature Gran % (Auto) 0.3 % Neut % (Auto) 80.9 % Lymph % (Auto) 14.1 % [place] % (Auto) 4.4 % Eos % (Auto) 0.3 % Baso % (Auto) 0.0 % Neut # (Auto) 5.27 (1.4-6.5) K/uL Lymph # (Auto) 0.92 L (1.2-3.4) K/uL [place] # (Auto) 0.29 (0.11-0.59) K/uL Eos # (Auto) 0.02 (0-0.5) K/uL Baso # (Auto) 0.00 (0-0.2) K/uL Immature Gran # (Auto) 0.02 (0.00-0.02) K/uL PT (9.0-12.0) Seconds INR (0.9-1.1) Sodium 139 (136-145) mmol/L Potassium 3.2 L D (3.5-5.1) mmol/L Chloride 112 H (98-107) mmol/L Carbon Dioxide 19 L (21-32) mmol/L Anion Gap 8.0 (3-11) BUN 20 H (7-18) mg/dl Creatinine 0.82 (0.6-1.2) mg/dl Est Cr Clr Drug Dosing 41.7 ml/min Est GFR ( Amer) 84.6 ml/min Est GFR (Non-Af Amer) 73.0 ml/min BUN/Creatinine Ratio 24.4 H (10-20) Glucose 98 (70-99) mg/dl POC Glucose 87 (70-99) mg/dl Calcium 6.8 L (8.5-10.1) mg/dl Phosphorus 1.8 L D (2.5-4.9) mg/dl Magnesium 1.7 L (1.8-2.4) mg/dl Total Bilirubin (0.2-1) mg/dl AST (15-37) U/L ALT (12-78) Alkaline Phosphatase (45-117) U/L Total Protein (6.4-8.2) gm/dl Albumin (3.4-5.0) gm/dl Globulin (2.5-4.0) gm/dl Albumin/Globulin Ratio (0.9-2) Resident Activity Tracking Resident Involvement: Resident Care Provided Care Provided: Adult [facility] Medicine
[2021-04-12 12:15] LABS: BUN Creatinine Ratio 24.3 (10-20); Calcium 7.1 mg/dl (8.5-10.1); Creatinine Clr Calc Pharmacy 46.7 ml/min; Est GFR (African American) 88.5 ml/min; Est GFR (Non-African American) 76.4 ml/min
[2021-04-13 05:15] LABS: Eosinophils # (auto) 0.03 K/uL (0-0.5); Eosinophils % (auto) 0.4 %; Hematocrit (blood only) 34.6 % (37-47); Hemoglobin 11.4 g/dL (12.0-16.0); Immature Granulocytes # (auto) 0.02 K/uL (0.00-0.02); Immature Granulocytes % (auto) 0.2 %; Lymphocytes # (auto) 1.76 K/uL (1.2-3.4); Lymphocytes % (auto) 21.7 %; Mean Corpuscular Hemoglobin 30.6 pg (25-34); Mean Corpuscular Hgb Conc 32.9 g/dL (32-36); Mean Platelet Volume 10.6 fL (7.4-10.4); Monocytes # (auto) 0.53 K/uL (0.11-0.59); Monocytes % (auto) 6.5 %; Neutrophils # (auto) 5.76 K/uL (1.4-6.5); Neutrophils % (auto) 71.2 %; Platelet Count 172 K/uL (130-400); RDW Standard Deviation 51.8 fL (36.4-46.3); Red Blood Count 3.72 M/uL (4.2-5.4)
[2021-04-13 05:36] LABS: INR 1.7 (0.9-1.1); Partial Thromboplastin Ratio 1.8; Prothrombin Time 16.9 Seconds (9.0-12.0)
[2021-04-13] MEDS: D5W AND 1/2NSS 1,000 ML IV SCH (05:42)
[2021-04-13 05:44] LABS: BUN Creatinine Ratio 25.4 (10-20); Calcium 6.9 mg/dl (8.5-10.1); Creatinine Clr Calc Pharmacy 52.7 ml/min; Est GFR (African American) 102.5 ml/min; Est GFR (Non-African American) 88.4 ml/min; Phosphorus 1.6 mg/dl (2.5-4.9); Potassium 4.6 mmol/L (3.5-5.1)
[2021-04-13 05:46] LABS: Magnesium 1.8 mg/dl (1.8-2.4)
[2021-04-13 05:48] LABS: Partial Thromboplastin Time 48.4 Seconds (21.0-31.0)
--- NOTE | 2021-04-13 07:56 | Hospitalist Progress Note ---
Date of Service April 13, 2021 Assessment & Plan (1) Partial obstruction of small intestine: Plan: Ashia Ca is a 70 yo female with PMHx of prior SBO s/o ex lap for lysis of adhesions, PE on anticoagulation, mixed connective tissue disorder, and pneumatosis intestinalis who was admitted to [facility] on 04/07/21 with weakness and vomiting, found to have partial SBO on CT. Partial obstruction of small intestine - Recent admission - had exploratory laparotomy on 01/29/21, with lysis of adhesion. - Record review of outpatient gen surg visit 03/15/21 notes that patient was at risk for having additional bowel obstructions due to her extensive jejunal disease. States that "If admitted to the hospital again with similar symptoms would do everything possible apart from surgery including long-term TPN if necessary." Also states that patient "likely would not tolerate a bowel resection of her disease bowel because of the extent of the disease and risk for short bowel syndrome." - CT abdomen and pelvis 04/07/21: evidence of high-grade partial small bowel obstruction - Received Zosyn q8h from 04/08 to 04/10 for empiric coverage; discontinued Zosyn 04/10 - General surgery on consult, appreciate commendations. -Per general surgery, NG tube removed 04/11 and diet re-started with [facility]. Currently on low fiber diet; toleraitng well. Will continue to advance per their recommendations. Continue conservative management. -Diet advanced to low fiber and she is currently tolerating it well. - Continue IV protonix 40mg po BID - PT/OT -- recommending inpatient rehab. Continue PT/OT during current hospitalization. -Awaiting placement Severe Protein Calorie Malnutrition - Consulted dietary for PPN. However, per general surgery patient is now starting with a diet and will hold further consult. - Nutrition still following for nutritional support. Appreciate their recommendations. - Patient agreeable to trial of po nutritional supplement to help improve protein intake - GI consulted: agrees with plan for conservative management -Will ensure outpatient follow-up with [facility]. Will set up with local gastroenterology - [facility] DVT - TTE as noted above - RLE doppler 04/09: DVT in the common femoral vein with extension to the superficial femoral vein and profunda femoris vein. - INR on admission subtherapeutic at 1.9, warfarin on hold for concern of failure of warfarin therapy but has had fluctuating INR as outpatient. -We will continue the patient on Lovenox as an outpatient and defer transition to warfarin to outpatient physician. - Started Lovenox 40mg SQ BID on 04/11 Electrolyte Abnormalities: hypokalemia, hypomagnesemia, hypophosphatemia - Will continue to monitor electrolytes and replete as indicated. - Recheck BMP, mag, and phos tomorrow AM Elevated troponin - Elevated troponin on admission; peaked at 0.248 on 04/07. - Most likely due to demand ischemia. - No EKG changes. - TTE 04/08 did not show any wall motion abnormalities. EF 60-65%. Similar findings compared to prior study 02/02/21. Hypoglycemia - Patient started on D5 04/29 NS overnight 04/08-04/09. Continue with IVF at this time. - Will continue to monitor. Hx of PE on Warfarin - INR 1.9 on admission. INR today 1.7. - Acute DVT as noted above. See DVT for management. TAB - Resolved with IV hydration Scleroderma - Continue prednisone FENa: Tolerating low fiber diet with supplementation Code Status: Full code DVT PPX: Lovenox, to resume warfarin today PT/OT: Consulted, pending placement Case Management: [facility] Connelly MD PGY 3, FCM This chart was completed utilizing [employer] dictation voice recognition software. Grammatical errors, random word insertions, pronoun errors, and in complete sentences are an occasional consequence of the system. Any questions or concerns about the content, text, or information contained within the body of this dictation should be addressed directly to the physician for clarification. (2) Hypoglycemia: (3) Acute hypotension: (4) Hypomagnesemia: (5) Elevated troponin: Admission and Anticipated Discharge Date Admission Date: April 07, 2021 Supervising Physician Co-Signing Physician Notes Resident Physician Supervision Note: I independently interviewed and examined the patient and verified the huston history and physical, reviewed labs and image studies and agree with resident Dr. Jayesh Connelly findings and care plan. Subjective Patient lying in bed this morning in no acute distress. Patient reports she is eager to participate in PT today. Patient states she is voiding, stooling, tolerating her diet, and sleeping. There are no acute concerns. Review of Systems Review of Systems: All systems reviewed & are unremarkable except as noted in HPI & below Physical Exam Physical Exam: General: No acute distress HEENT: Normocephalic atraumatic Neck: No significant lymphadenopathy, trachea midline, normal to visual inspection Cardiac: Regular rate and rhythm, normal S1, normal S2, I did not appreciated any significant murmurs rubs or gallops, I did not appreciate any significant pedal edema, No calf tenderness, capillary refill is less than 3 seconds Respiratory: Clear to auscultation bilaterally with symmetrical chest rise, I did not appreciate any significant wheezes, rales, rhonchi, no increased work of breathing GI: Normal bowel sounds, soft, nontender in all 4 quadrants, nondistended MSK: No sensory or motor changes, moves all extremities without issue, extremities are warm and well-perfused Skin: [place], clean, dry, intact. Some bruising on her bilateral lower extremities Neuro: Alert and oriented x4 Psych: Calm, cooperative, logical thought process Results & Data Results & Data ([facility]) Vital Signs (Past 12 Hours) Vital Signs Temp Pulse Resp BP Pulse Ox 04/12/21 22:08 36.8 C 91 H 17 101/65 97 Laboratory Results 04/13/21 04/13/21 04/13/21 Range/Units 04:48 04:48 04:48 WBC 8.10 (4.8-10.8) K/uL RBC 3.72 L (4.2-5.4) M/uL Hgb 11.4 L (12.0-16.0) g/dL Hct 34.6 L (37-47) % MCV 93.0 (80-100) fL MCH 30.6 (25-34) pg MCHC 32.9 (32-36) g/dL RDW Std Deviation 51.8 H (36.4-46.3) fL RDW Coeff of Bo 15.0 H (11.5-14.5) % Plt Count 172 (130-400) K/uL MPV 10.6 H (7.4-10.4) fL Immature Gran % (Auto) 0.2 % Neut % (Auto) 71.2 % Lymph % (Auto) 21.7 % [place] % (Auto) 6.5 % Eos % (Auto) 0.4 % Baso % (Auto) 0.0 % Neut # (Auto) 5.76 (1.4-6.5) K/uL Lymph # (Auto) 1.76 (1.2-3.4) K/uL [place] # (Auto) 0.53 (0.11-0.59) K/uL Eos # (Auto) 0.03 (0-0.5) K/uL Baso # (Auto) 0.00 (0-0.2) K/uL Immature Gran # (Auto) 0.02 (0.00-0.02) K/uL PT 16.9 H (9.0-12.0) Seconds INR 1.7 H (0.9-1.1) APTT 48.4 H* (21.0-31.0) Seconds PTT Ratio 1.8 Sodium 138 (136-145) mmol/L Potassium 4.6 (3.5-5.1) mmol/L Chloride 113 H (98-107) mmol/L Carbon Dioxide 20 L (21-32) mmol/L Anion Gap 5.0 (3-11) BUN 18 (7-18) mg/dl Creatinine 0.70 (0.6-1.2) mg/dl Est Cr Clr Drug Dosing 52.7 ml/min Est GFR ( Amer) 102.5 ml/min Est GFR (Non-Af Amer) 88.4 ml/min BUN/Creatinine Ratio 25.4 H (10-20) Glucose 81 (70-99) mg/dl POC Glucose (70-99) mg/dl Calcium 6.9 L (8.5-10.1) mg/dl Phosphorus 1.6 L (2.5-4.9) mg/dl Magnesium 1.8 (1.8-2.4) mg/dl 04/12/21 04/12/21 Range/Units 12:14 11:50 WBC (4.8-10.8) K/uL RBC (4.2-5.4) M/uL Hgb (12.0-16.0) g/dL Hct (37-47) % MCV (80-100) fL MCH (25-34) pg MCHC (32-36) g/dL RDW Std Deviation (36.4-46.3) fL RDW Coeff of Bo (11.5-14.5) % Plt Count (130-400) K/uL MPV (7.4-10.4) fL Immature Gran % (Auto) % Neut % (Auto) % Lymph % (Auto) % [place] % (Auto) % Eos % (Auto) % Baso % (Auto) % Neut # (Auto) (1.4-6.5) K/uL Lymph # (Auto) (1.2-3.4) K/uL [place] # (Auto) (0.11-0.59) K/uL Eos # (Auto) (0-0.5) K/uL Baso # (Auto) (0-0.2) K/uL Immature Gran # (Auto) (0.00-0.02) K/uL PT (9.0-12.0) Seconds INR (0.9-1.1) APTT (21.0-31.0) Seconds PTT Ratio Sodium 138 (136-145) mmol/L Potassium 4.0 (3.5-5.1) mmol/L Chloride 113 H (98-107) mmol/L Carbon Dioxide 19 L (21-32) mmol/L Anion Gap 6.0 (3-11) BUN 19 H (7-18) mg/dl Creatinine 0.79 (0.6-1.2) mg/dl Est Cr Clr Drug Dosing 46.7 ml/min Est GFR ( Amer) 88.5 ml/min Est GFR (Non-Af Amer) 76.4 ml/min BUN/Creatinine Ratio 24.3 H (10-20) Glucose 106 H (70-99) mg/dl POC Glucose 94 (70-99) mg/dl Calcium 7.1 L (8.5-10.1) mg/dl Phosphorus (2.5-4.9) mg/dl Magnesium (1.8-2.4) mg/dl Medications Administered Current Inpatient Medications Acetaminophen (Acetaminophen 325 Mg Tab) 650 mg PO Q4H PRN PRN Reason: Pain or Fever Stop: 05/08/21 05:51 Enoxaparin Sodium (Enoxaparin Inj 40 Mg/0.4 Ml Syr) 40 mg SQ Q12H FABIAN Stop: 05/11/21 10:29 Last Admin: 04/12/21 21:50 Dose: 40 mg Documented by: Fluticasone/Vilanterol (Fluticasone/Vilanterol 100/25mcg 14 Puffs/Inhaler) 1 puffs INH DAILY [facility] Stop: 05/08/21 08:59 Last Admin: 04/12/21 08:40 Dose: 1 puffs Documented by: Pantoprazole Sodium 40 mg/ (Syringe) 10 mls @ 5 mls/min IV BID [facility] Stop: 05/08/21 05:44 Last Admin: 04/12/21 21:49 Dose: 5 mls/min Documented by: Dextrose/Sodium Chloride (D5w And 1/2nss) 1,000 mls @ 120 mls/hr IV .[id number] [facility] Stop: 05/09/21 18:44 Last Admin: 04/13/21 05:42 Dose: 120 mls/hr Documented by: Miscellaneous Information (Tpn/Ppn Consult Pharmacy) 1 ea N/A UD PRN PRN Reason: Consult Stop: 05/09/21 16:41 Polyethylene Glycol (Polyethylene (Miralax) 17 Gm Pack) 17 gm PO DAILY PRN PRN Reason: Constipation Stop: 05/08/21 05:51 Prednisone (Prednisone 10 Mg Tablet) 10 mg PO DAILY [facility] Stop: 05/08/21 08:59 Last Admin: 04/12/21 08:39 Dose: 10 mg Documented by: Tramadol HCl (Tramadol Hcl 50 Mg Tablet) 50 mg PO DAILY PRN PRN Reason: Pain Stop: 05/08/21 05:51 Warfarin Sodium (Warfarin Sod 2.5 Mg Tab) 2.5 mg PO DAILY@1600 [facility] Stop: 05/08/21 15:59 Last Admin: 04/08/21 17:08 Dose: 2.5 mg Documented by:
[2021-04-13] MEDS: predniSONE 10 MG TABLET PO SCH (08:13)
[2021-04-13] MEDS: PANTOprazole 40 MG in SYRINGE 0 ML IV SCH ×2 (08:13→22:15)
[2021-04-13] MEDS: FLUTICASONE/VILANTEROL 100/25MCG 14 PUFFS/INHALER INH SCH (14:04)
[2021-04-13] MEDS: ENOXAPARIN INJ 40 MG/0.4 ML SYR SQ SCH ×2 (14:05→22:25)
[2021-04-13] MEDS ORDERED: GLUCOSE 40% GEL 15 GM TUBE PO PRN (19:35)
[2021-04-13] MEDS ORDERED: GLUCOSE 10 TABS/TUBE PO PRN (19:35)
[2021-04-13] MEDS ORDERED: GLUCAGON FOR INJ 1 MG VIAL SQ PRN (19:35)
[2021-04-13] MEDS ORDERED: PROCHLORPERAZINE 5 MG in SYRINGE 4 ML IV PRN (21:39)
[2021-04-14] MEDS ORDERED: SODIUM CHLORIDE 0.9% 1000ML 500 ML IV ONE (00:04)
[2021-04-14] MEDS: DEXTROSE 50% 50 ML SYRINGE IV PRN ×2 (00:42→06:08)
[2021-04-14] MEDS ORDERED: D5W AND NSS 500 ML IV SCH (06:30)
[2021-04-14 06:36] LABS: Hemoglobin 10.9 g/dL (12.0-16.0); Mean Corpuscular Hemoglobin 30.7 pg (25-34); Mean Platelet Volume 10.6 fL (7.4-10.4); Platelet Count 158 K/uL (130-400); RDW Coefficient of Variation 14.9 % (11.5-14.5); RDW Standard Deviation 51.3 fL (36.4-46.3); Red Blood Count 3.55 M/uL (4.2-5.4); White Blood Count 9.14 K/uL (4.8-10.8)
[2021-04-14 07:10] LABS: BUN Creatinine Ratio 23.3 (10-20); Creatinine Clr Calc Pharmacy 45.4 ml/min; Est GFR (African American) 78.8 ml/min; Magnesium 1.7 mg/dl (1.8-2.4); Potassium 4.8 mmol/L (3.5-5.1)
[2021-04-14] MEDS ORDERED: SODIUM PHOSPHATE 3 MMOL/1 ML INFUSION IV STA (07:17)
[2021-04-14] MEDS ORDERED: SODIUM PHOSPHATE 15 MMOL in SODIUM CHLORIDE 0.9% 250 ML IV ONE (07:30)
[2021-04-14] MEDS: MAGNESIUM SULFATE / D5W 1 GM/100 ML BAG IV SCH ×2 (08:40→11:23)
[2021-04-14] MEDS: predniSONE 10 MG TABLET PO SCH (09:26)
[2021-04-14] MEDS: PANTOprazole 40 MG in SYRINGE 0 ML IV SCH ×2 (09:26→20:51)
[2021-04-14] MEDS: FLUTICASONE/VILANTEROL 100/25MCG 14 PUFFS/INHALER INH SCH (09:26)
[2021-04-14] MEDS: ONDANSETRON INJ 2 MG/ML 2 ML VIAL IV PRN ×2 (11:29→17:50)
[2021-04-14] MEDS: ENOXAPARIN INJ 40 MG/0.4 ML SYR SQ SCH (12:09)
--- NOTE | 2021-04-14 16:47 | Hospitalist Progress Note ---
Date of Service April 14, 2021 Assessment & Plan (1) Partial obstruction of small intestine: Plan: Ashia Ca is a 70 yo female with PMHx of prior SBO s/o ex lap for lysis of adhesions, PE on anticoagulation, mixed connective tissue disorder, and pneumatosis intestinalis who was admitted to [facility] on 04/07/21 with weakness and vomiting, found to have partial SBO on CT. Partial obstruction of small intestine - Recent admission - had exploratory laparotomy on 01/29/21, with lysis of adhesion. - Record review of outpatient gen surg visit 03/15/21 notes that patient was at risk for having additional bowel obstructions due to her extensive jejunal disease. States that "If admitted to the hospital again with similar symptoms would do everything possible apart from surgery including long-term TPN if necessary." Also states that patient "likely would not tolerate a bowel resection of her diseased bowel because of the extent of the disease and risk for short bowel syndrome." - CT abdomen and pelvis 04/07/21: evidence of high-grade partial small bowel obstruction - Received Zosyn q8h from 04/08 to 04/10 for empiric coverage; discontinued Zosyn 04/10 - General surgery on consult, appreciate commendations. -Per general surgery, NG tube removed 04/11 and diet re-started with [facility]. Continue conservative management. - Continue IV protonix 40mg po BID - Due to recurrent nausea/vomiting overnight, will downgrade diet to full liquid from low fiber diet. If she continues to have nausea/vomiting, would continue to downgrade and consult GI. Severe Protein Calorie Malnutrition - Nutrition following for nutritional support. Scleroderma - GI consulted due to h/o scleroderma, excessive weight loss. - Conservative measure recommended. - considering recurrence of nausea - will need to reconsult GI - reasses in am - continue prednisone DVT - TTE as noted above - RLE doppler 04/09: DVT in the common femoral vein with extension to the superficial femoral vein and profunda femoris vein. - INR on admission subtherapeutic at 1.9, warfarin on hold for concern of failure of warfarin therapy but has had fluctuating INR as outpatient. -We will continue the patient on Lovenox as an outpatient and defer transition to warfarin to outpatient physician. - Started Lovenox 40mg SQ BID on 04/11 Hypoglycemia - Patient with recurrent hypoglycemia overnight last night (04/14). Responded well to 500cc bolus of D5W NS. - due to poor oral intake sec to N/V Electrolyte Abnormalities: hypokalemia, hypomagnesemia, hypophosphatemia - Will continue to monitor electrolytes and replete as indicated. - Required phos and magnesium replacement today, 04/14. - Recheck BMP, mag, and phos tomorrow AM Elevated troponin - Elevated troponin on admission; peaked at 0.248 on 04/07. - Most likely due to demand ischemia. - No EKG changes. - TTE 04/08 did not show any wall motion abnormalities. EF 60-65%. Similar findings compared to prior study 02/02/21. Hx of PE - On warfarin at home. Held - Acute DVT as noted above. See DVT for management. TAB - Resolved with IV hydration FENa: Full liquid diet Code Status: Full code DVT PPX: Lovenox PT/OT: Consulted, pending placement Case Management: Discharge planning Dispo: Medr. - PT/OT -- recommending inpatient rehab. Continue PT/OT during current hospitalization. Awaiting placement, likely at [facility], when medically cleared. (2) Hypoglycemia: (3) Acute hypotension: (4) Hypomagnesemia: (5) Elevated troponin: Admission and Anticipated Discharge Date Admission Date: April 07, 2021 Supervising Physician Co-Signing Physician Notes Resident Physician Supervision Note: I independently interviewed and examined the patient and verified the huston history and physical, reviewed labs and image studies and agree with resident Dr. Mendoza findings and care plan. Subjective Patient seen and evaluated at bedside this morning. Per overnight report, patient with period of hypotension that responded well to 500 cc bolus of NS. Subsequently had hypoglycemia in 50s-60s that responded with D5W NS 500cc bolus as well. Patient reports this morning that she feels tired and overall "not good." She does report increased nausea with po intake. Also reports having 2 episodes of emesis overnight. She denies CP, SOB, abdominal pain. Still with + flatus and having bowel movements. Review of Systems Review of Systems: See HPI Physical Exam Physical Exam: GENERAL: No acute distress. Thin appearing. Tired appearing. Vital signs reviewed as above. EYES: EOMI. Anicteric sclerae. HENT: Dry mucous membranes. RESPIRATORY: No acute respiratory distress. Anterior and lateral lung allen CTA bilaterally w/o wheezing. CARDIOVASCULAR: Regular rate and rhythm. No murmurs. ABDOMEN: Soft, non-tender and non-distended. Normal bowel sounds. SKIN: Warm, dry. NEUROLOGIC: A/O x3. No focal neurological deficits. PSYCHIATRIC: Cooperative. Appropriate mood and affect. Results & Data Results & Data ([facility]) Vital Signs (Past 12 Hours) Vital Signs Pulse Resp BP Pulse Ox 04/14/21 07:49 89 16 96/57 L 92 Laboratory Results 04/14/21 04/14/21 04/14/21 Range/Units 17:11 12:07 06:27 WBC (4.8-10.8) K/uL RBC (4.2-5.4) M/uL Hgb (12.0-16.0) g/dL Hct (37-47) % MCV (80-100) fL MCH (25-34) pg MCHC (32-36) g/dL RDW Std Deviation (36.4-46.3) fL RDW Coeff of Bo (11.5-14.5) % Plt Count (130-400) K/uL MPV (7.4-10.4) fL Sodium (136-145) mmol/L Potassium (3.5-5.1) mmol/L Chloride (98-107) mmol/L Carbon Dioxide (21-32) mmol/L Anion Gap (3-11) BUN (7-18) mg/dl Creatinine (0.6-1.2) mg/dl Est Cr Clr Drug Dosing ml/min Est GFR ( Amer) ml/min Est GFR (Non-Af Amer) ml/min BUN/Creatinine Ratio (10-20) Glucose (70-99) mg/dl POC Glucose 78 89 182 H (70-99) mg/dl Calcium (8.5-10.1) mg/dl Phosphorus (2.5-4.9) mg/dl Magnesium (1.8-2.4) mg/dl 04/14/21 04/14/21 04/14/21 Range/Units 06:24 06:24 06:06 WBC 9.14 (4.8-10.8) K/uL RBC 3.55 L (4.2-5.4) M/uL Hgb 10.9 L (12.0-16.0) g/dL Hct 33.0 L (37-47) % MCV 93.0 (80-100) fL MCH 30.7 (25-34) pg MCHC 33.0 (32-36) g/dL RDW Std Deviation 51.3 H (36.4-46.3) fL RDW Coeff of Bo 14.9 H (11.5-14.5) % Plt Count 158 (130-400) K/uL MPV 10.6 H (7.4-10.4) fL Sodium 136 (136-145) mmol/L Potassium 4.8 (3.5-5.1) mmol/L Chloride 111 H (98-107) mmol/L Carbon Dioxide 19 L (21-32) mmol/L Anion Gap 6.0 (3-11) BUN 20 H (7-18) mg/dl Creatinine 0.87 (0.6-1.2) mg/dl Est Cr Clr Drug Dosing 45.4 ml/min Est GFR ( Amer) 78.8 ml/min Est GFR (Non-Af Amer) 68.0 ml/min BUN/Creatinine Ratio 23.3 H (10-20) Glucose 186 H (70-99) mg/dl POC Glucose 52 L* (70-99) mg/dl Calcium 7.0 L (8.5-10.1) mg/dl Phosphorus 2.0 L (2.5-4.9) mg/dl Magnesium 1.7 L (1.8-2.4) mg/dl 04/14/21 04/14/21 04/14/21 Range/Units 06:03 00:58 00:04 WBC (4.8-10.8) K/uL RBC (4.2-5.4) M/uL Hgb (12.0-16.0) g/dL Hct (37-47) % MCV (80-100) fL MCH (25-34) pg MCHC (32-36) g/dL RDW Std Deviation (36.4-46.3) fL RDW Coeff of Bo (11.5-14.5) % Plt Count (130-400) K/uL MPV (7.4-10.4) fL Sodium (136-145) mmol/L Potassium (3.5-5.1) mmol/L Chloride (98-107) mmol/L Carbon Dioxide (21-32) mmol/L Anion Gap (3-11) BUN (7-18) mg/dl Creatinine (0.6-1.2) mg/dl Est Cr Clr Drug Dosing ml/min Est GFR ( Amer) ml/min Est GFR (Non-Af Amer) ml/min BUN/Creatinine Ratio (10-20) Glucose (70-99) mg/dl POC Glucose 50 L* 115 H 65 L* (70-99) mg/dl Calcium (8.5-10.1) mg/dl Phosphorus (2.5-4.9) mg/dl Magnesium (1.8-2.4) mg/dl Resident Activity Tracking Resident Involvement: Resident Care Provided Care Provided: Adult Hospital Medicine
[2021-04-15] MEDS: DEXTROSE 50% 50 ML SYRINGE IV PRN ×4 (00:01→23:35)
[2021-04-15] MEDS: ENOXAPARIN INJ 40 MG/0.4 ML SYR SQ SCH ×3 (00:39→21:52)
[2021-04-15] MEDS: D5W AND NSS 500 ML IV SCH ×3 (00:48→02:58)
[2021-04-15 06:15] LABS: Hematocrit (blood only) 33.9 % (37-47); Hemoglobin 11.3 g/dL (12.0-16.0); Mean Corpuscular Hemoglobin 30.6 pg (25-34); Mean Corpuscular Hgb Conc 33.3 g/dL (32-36); Mean Corpuscular Volume 91.9 fL (80-100); Mean Platelet Volume 10.6 fL (7.4-10.4); Platelet Count 188 K/uL (130-400); RDW Standard Deviation 50.9 fL (36.4-46.3); Red Blood Count 3.69 M/uL (4.2-5.4); White Blood Count 10.16 K/uL (4.8-10.8)
--- NOTE | 2021-04-15 06:50 | Hospitalist Progress Note ---
Date of Service April 15, 2021 Assessment & Plan (1) Partial obstruction of small intestine: Plan: Ashia Ca is a 70 yo female with PMHx of prior SBO s/o ex lap for lysis of adhesions, PE on anticoagulation, mixed connective tissue disorder, and pneumatosis intestinalis who was admitted to [facility] on 04/07/21 with weakness and vomiting, found to have partial SBO on CT. Partial obstruction of small intestine, improved, then worsened - Recent admission - had exploratory laparotomy on 01/29/21, with lysis of adhesion. - Record review of outpatient gen surg visit 03/15/21 notes that patient was at risk for having additional bowel obstructions due to her extensive jejunal disease. States that "If admitted to the hospital again with similar symptoms would do everything possible apart from surgery including long-term TPN if necessary." Also states that patient "likely would not tolerate a bowel resection of her diseased bowel because of the extent of the disease and risk for short bowel syndrome." - CT abdomen and pelvis 04/07/21: evidence of high-grade partial small bowel obstruction - Received Zosyn q8h from 04/08 to 04/10 for empiric coverage; discontinued Zosyn 04/10 - General surgery on consult, -NG tube removed 04/11 and diet advance slowly to soft low fiber. - restarted to have nausea/vomiting 04/14 - Repeated KUB 04/15, showing continued small bowel obstruction. - Trial 24 hours NPO. - IVF - Will need to reach out to surgery again for assessment in am. - consult GI as well - would like to see different provider - consult order placed for Dr Lucas. - Continue IV protonix 40mg BID - considering the extent of malnutrition - consult for TPN Hypotension, MAP to lows of ~60 - somewhat responsive to 500mL fluid boluses - considered severe malnutrition vs hypovolemic vs septic shock - currently on maintenance LR 90ml/hr w/ caution re: avoiding volume overload. Repeat cxr w/o vol overload, so will give another 500mL bolus. - checking random cortisol - upgrading to PCU on 03/1921 Dyspnea Differential: hypervolemia, asthma, pneumonia, PE (has hx of, and has new DVT this admission, but currently on therapeutic Lovenox) - cxr: Small left pleural effusion with left basilar consolidation, new from 04/08/2021. - Defer adding PRN Xopenex in setting of concern for hypotension. - Procalc pending. If elevated, will treat empirically for presumed respiratory infection possibly contributing to hypotension - Encouraged use of incentive spirometer Severe Protein Calorie Malnutrition - Nutrition reconsult for TPN considering worsening GI status again. Scleroderma - continue chronic prednisone 10 PO DVT - TTE as noted above - RLE doppler 04/09: DVT in the common femoral vein with extension to the superficial femoral vein and profunda femoris vein. - INR on admission subtherapeutic at 1.9, warfarin on hold for concern of failure of warfarin therapy but has had fluctuating INR as outpatient. -We will continue the patient on Lovenox as an outpatient and defer transition to warfarin to outpatient physician. - Started Lovenox 40mg SQ BID on 04/11 Hypoglycemia - Patient with recurrent hypoglycemia overnight last night (04/14). Responded well to 500cc bolus of D5W NS. - due to poor oral intake sec to N/V Electrolyte Abnormalities: hypokalemia, hypomagnesemia, hypophosphatemia - Will continue to monitor electrolytes and replete as indicated. - Required phos and magnesium replacement today, 04/14. - Recheck BMP, mag, and phos tomorrow AM Elevated troponin at admission - Peaked at 0.248 on 04/07. - Most likely due to demand ischemia. Hx of PE - On warfarin at home. Held - Acute DVT as noted above. Currently on BID Lovenox 40 TAB, resolved w/ hydration FENa: NPO Code Status: Full code DVT PPX: Lovenox therapeutic 40 mg SQ BID PT/OT: Consulted, pending placement Case Management: Discharge planning Dispo: Med/surg: upgrading to PCU because of hypotension. (2) Hypoglycemia: (3) Acute hypotension: (4) Hypomagnesemia: (5) Elevated troponin: Admission and Anticipated Discharge Date Admission Date: April 07, 2021 Supervising Physician Co-Signing Physician Notes Resident Physician Supervision Note: I independently interviewed and examined the patient and verified the huston history and physical, reviewed labs and image studies and agree with resident Dr. Castillo findings and care plan. Subjective Feels weak. +n/v several episodes, severity unchanged. last bm 1-2 days ago. no appetite. no dizziness/lighthead. Per nursing, several soft BPs today: 78/57, 82/46 PM update: mild dyspnea, denies wheezing Review of Systems Review of Systems: All systems reviewed & are unremarkable except as noted in HPI & below Constitutional: Denies fever, chills Cardiovascular: Denies chest pain Respiratory: Denies shortness of breath Gastrointestinal: Denies abdominal pain Genitourinary: Denies urinary symptoms including dysuria Musculoskeletal: Denies weakness, muscle aches/pain, joint aches/pain Neurological: Denies headache, numbness, tingling, focal weakness Physical Exam Physical Exam: General: Grossly A&O. NAD. Cooperative. HEENT: Atraumatic, normocephalic. No obvious JVD Pulm: Insp crackles at bases, more prominent on L No respiratory distress. Cardiac: RRR, -mrg. 3+ BLE. chronic Abdominal: Nontender, nondistended, soft. Results & Data Results & Data ([facility]) Vital Signs (Past 12 Hours) Vital Signs HR 100s. BP 87/57, 103/71, 78/57. 92-94 sat on RA. Temp Pulse Resp BP Pulse Ox Pulse Ox 04/15/21 01:24 103/71 04/15/21 00:15 36.4 C L 108 H 18 87/57 L 92 04/14/21 23:15 36.4 C L 92 Laboratory Results wbc slight uptrending 6.52 (04/11) ->10.16. Hb stable 11.3 x 3 days. BMP reviewed. Cr .7->.87->.99. BUN/Cr 25.5. Intermittent low BSG 64. Ca 7.4 uncorrected. Alb 1.7 on 04/12/21. 04/08/21 echo EF 60-65, small to mod pericardial effusion. 04/07/21 ecg w/ sinus 90 w/ PACs. Prior ecgs w/ sinus tach Diagnostic Findings 04/09 venous doppler DVT RLE common femoral vein. KUB X-Ray 04/15/21 13:55 KUB HISTORY: Acute generalized abdominal pain with reported small bowel obstruction SBO, continued N/V COMPARISON: CT abdomen and pelvis 04/07/2021 FINDINGS: Small left pleural effusion with left lung base opacities are new from prior. Calcified granuloma of the right lung base. Persistent dilated air-filled loops of small bowel within central abdomen measure up to approximately 5.5 cm. Discectomy. Left-sided renal calculi better seen on comparison CT. No pneumoperitoneum or pneumatosis. Degenerative changes of the spine, pelvis and hips. No fracture. IMPRESSION: 1. Findings suggestive of continued small bowel obstruction. 2. New small left pleural effusion with left lung base consolidation. ACT 112: Negative or not required by law. The above report was generated using voice recognition software. It may contain grammatical, syntax or spelling errors. Electronically signed by: Berry Pollock M.D. 04/15/2021 3:05 PM Chest X-Ray 04/15/21 16:18 XR chest 1V portable HISTORY: 70 years-old Female LLL opacity on kub. dyspnea acute shortness of breath COMPARISON: KUB of same day, chest radiograph 04/08/2021, CTA chest 02/01/2021 TECHNIQUE: Supine AP view of the chest FINDINGS: Calcified granuloma of the right lung base redemonstrated. 1.3 cm sclerotic focus of the posterolateral right seventh rib is unchanged. The cardiac silhouette is enlarged. Small left pleural effusion with left basilar consolidation. No pneumothorax. Degenerative changes of the shoulders and spine. Cholecystectomy. IMPRESSION: Small left pleural effusion with left basilar consolidation, new from 04/08/2021. ACT 112: Negative or not required by law. The above report was generated using voice recognition software. It may contain grammatical, syntax or spelling errors. Electronically signed by: Berry Pollock M.D. 04/15/2021 5:11 PM Resident Activity Tracking Resident Involvement: Resident Care Provided Care Provided: Adult Hospital Medicine
[2021-04-15 07:09] LABS: BUN Creatinine Ratio 25.5 (10-20); Calcium 7.4 mg/dl (8.5-10.1); Creatinine Clr Calc Pharmacy 40.5 ml/min; Est GFR (African American) 67.4 ml/min; Est GFR (Non-African American) 58.1 ml/min; Phosphorus 2.8 mg/dl (2.5-4.9)
[2021-04-15] MEDS ORDERED: LACTATED RINGER'S 500 ML IV ONE ×3 (07:43→22:56)
[2021-04-15] MEDS ORDERED: TPN/PPN CONSULT PHARMACY PRN (08:00)
[2021-04-15] MEDS: PANTOprazole 40 MG in SYRINGE 0 ML IV SCH ×2 (08:11→21:52)
[2021-04-15] MEDS: predniSONE 10 MG TABLET PO SCH (09:36)
[2021-04-15] MEDS: FLUTICASONE/VILANTEROL 100/25MCG 14 PUFFS/INHALER INH SCH (09:36)
[2021-04-15] MEDS: ONDANSETRON INJ 2 MG/ML 2 ML VIAL IV PRN (13:10)
[2021-04-15] MEDS ORDERED: LACTATED RINGER'S 1,000 ML IV SCH (14:00)
--- NOTE | 2021-04-15 15:07 | XRay Report ---
KUB HISTORY: Acute generalized abdominal pain with reported small bowel obstruction SBO, continued N/V COMPARISON: CT abdomen and pelvis 04/07/2021 FINDINGS: Small left pleural effusion with left lung base opacities are new from prior. Calcified gra nuloma of the right lung base. Persistent dilated air-filled loops of small bowel within central abdo men measure up to approximately 5.5 cm. Discectomy. Left-sided renal calculi better seen on comparis on CT. No pneumoperitoneum or pneumatosis. Degenerative changes of the spine, pelvis and hips. No fra cture. IMPRESSION: 1. Findings suggestive of continued small bowel obstruction. 2. New small left pleural effusion with left lung base consolidation. ACT 112: Negative or not required by law. The above report was generated using voice recognition software. It may contain grammatical, syntax o r spelling errors. Electronically signed by: Berry Pollock M.D. 04/15/2021 3:05 PM
--- NOTE | 2021-04-15 17:12 | XRay Report ---
XR chest 1V portable HISTORY: 70 years-old Female LLL opacity on kub. dyspnea acute shortness of breath COMPARISON: KUB of same day, chest radiograph 04/08/2021, CTA chest 02/01/2021 TECHNIQUE: Supine AP view of the chest FINDINGS: Calcified granuloma of the right lung base redemonstrated. 1.3 cm sclerotic focus of the posterolater al right seventh rib is unchanged. The cardiac silhouette is enlarged. Small left pleural effusion wi th left basilar consolidation. No pneumothorax. Degenerative changes of the shoulders and spine. Chol ecystectomy. IMPRESSION: Small left pleural effusion with left basilar consolidation, new from 04/08/2021. ACT 112: Negative or not required by law. The above report was generated using voice recognition software. It may contain grammatical, syntax o r spelling errors. Electronically signed by: Berry Pollock M.D. 04/15/2021 5:11 PM
[2021-04-15] MEDS ORDERED: TPN/PPN CONSULT PHARMACY STA (23:19)
[2021-04-15] MEDS: D5W AND NSS 1,000 ML IV SCH (23:50)
[2021-04-16 05:57] LABS: Hematocrit (blood only) 28.7 % (37-47); Hemoglobin 9.5 g/dL (12.0-16.0); Mean Corpuscular Hemoglobin 30.4 pg (25-34); Mean Corpuscular Hgb Conc 33.1 g/dL (32-36); Mean Platelet Volume 10.2 fL (7.4-10.4); Platelet Count 151 K/uL (130-400); RDW Coefficient of Variation 15.1 % (11.5-14.5); RDW Standard Deviation 51.5 fL (36.4-46.3); Red Blood Count 3.12 M/uL (4.2-5.4); White Blood Count 8.66 K/uL (4.8-10.8)
[2021-04-16 06:31] LABS: Albumin Level 1.4 gm/dl (3.4-5.0); BUN Creatinine Ratio 29.5 (10-20); Calcium 7.1 mg/dl (8.5-10.1); Creatinine Clr Calc Pharmacy 42.2 ml/min; Est GFR (African American) 70.8 ml/min; Est GFR (Non-African American) 61.1 ml/min; Potassium 4.1 mmol/L (3.5-5.1)
[2021-04-16 06:32] LABS: Albumin Globulin Ratio 0.6 (0.9-2); Bilirubin,Total 0.3 mg/dl (0.2-1); Globulin 2.5 gm/dl (2.5-4.0); Total Protein 3.9 gm/dl (6.4-8.2)
[2021-04-16 06:41] LABS: Eosinophils # (auto) 0.01 K/uL (0-0.5); Eosinophils % (auto) 0.1 %; Immature Granulocytes # (auto) 0.03 K/uL (0.00-0.02); Immature Granulocytes % (auto) 0.3 %; Lymphocytes # (auto) 1.55 K/uL (1.2-3.4); Lymphocytes % (auto) 17.9 %; Monocytes # (auto) 0.55 K/uL (0.11-0.59); Monocytes % (auto) 6.4 %; Neutrophils # (auto) 6.52 K/uL (1.4-6.5); Neutrophils % (auto) 75.3 %
--- NOTE | 2021-04-16 08:28 | Hospitalist Progress Note ---
Date of Service April 16, 2021 Assessment & Plan (1) Partial obstruction of small intestine: Plan: Ashia Ca is a 70 yo female with PMHx of prior SBO s/p ex lap for lysis of adhesions, PE on anticoagulation, mixed connective tissue disorder, and pneumatosis intestinalis who was admitted to [facility] on 04/07/21 with weakness and vomiting, found to have partial SBO on CT. Partial obstruction of small intestine, improved, then worsened Recent admission - had exploratory laparotomy on 01/29/21, with lysis of adhesion. Record review of outpatient gen surg visit 03/15/21 notes that patient was at risk for having additional bowel obstructions due to her extensive jejunal disease. States that "If admitted to the hospital again with similar symptoms would do everything possible apart from surgery including long- term TPN if necessary." Also states that patient "likely would not tolerate a bowel resection of her diseased bowel because of the extent of the disease and risk for short bowel syndrome." - CT abdomen and pelvis 04/07/21: evidence of high-grade partial small bowel obstruction - Received Zosyn q8h from 04/08 to 04/10 for empiric coverage; discontinued Zosyn 04/10 - General surgery on consult, appreciate commendations. -Per general surgery, NG tube removed 04/11 and diet re-started with CLD. Continue conservative management. - Downgraded to full liquid w/o improvement in N/V. Will trial 24 hours NPO. Repeated KUB 04/15, showing continued small bowel obstruction. - Continue IV protonix 40mg BID -Gastroenterology consulted appreciate recommendations -Plan to start PPN tomorrow. Hypotension, MAP to lows of ~60 -Responsive to fluid boluses suspect third spacing secondary to severe protein malnutrition. - currently on maintenance LR 90ml/hr w/ caution re: avoiding volume overload. R epeat cxr w/o vol overload, so will give another 500mL bolus. - checking random cortisol - upgrading to PCU on 03/1921 Dyspnea Differential: hypervolemia, asthma, pneumonia, PE (has hx of, and has new DVT this admission, but currently on therapeutic Lovenox) - cxr: Small left pleural effusion with left basilar consolidation, new from 04/08/2021. - Defer adding PRN Xopenex in setting of concern for hypotension. - Procalc pending. If elevated, will treat empirically for presumed respiratory infection possibly contributing to hypotension - Encouraged use of incentive spirometer Severe Protein Calorie Malnutrition - Nutrition consulted. -Initiate PPN tomorrow Scleroderma - continue chronic prednisone 10 PO DVT - TTE as noted above - RLE doppler 04/09: DVT in the common femoral vein with extension to the superficial femoral vein and profunda femoris vein. - INR on admission subtherapeutic at 1.9, warfarin on hold for concern of failure of warfarin therapy but has had fluctuating INR as outpatient. -We will continue the patient on Lovenox as an outpatient and defer transition to warfarin to outpatient physician. - Started Lovenox 40mg SQ BID on 04/11 Hypoglycemia - Patient with recurrent hypoglycemia overnight last night (04/14). Responded well to 500cc bolus of D5W NS. - due to poor oral intake sec to N/V Electrolyte Abnormalities: hypokalemia, hypomagnesemia, hypophosphatemia - Will continue to monitor electrolytes and replete as indicated. - Required phos and magnesium replacement today, 04/14. - Recheck BMP, mag, and phos tomorrow AM Elevated troponin at admission - Peaked at 0.248 on 04/07. - Most likely due to demand ischemia. Hx of PE - On warfarin at home. Held - Acute DVT as noted above. Currently on BID Lovenox 40 TAB, resolved w/ hydration FENa: NPO Code Status: Full code DVT PPX: Lovenox therapeutic 40 mg SQ BID PT/OT: Consulted, pending placement Case Management: Discharge planning Dispo: Med/surg: upgrading to PCU because of hypotension. (2) Hypoglycemia: (3) Acute hypotension: (4) Hypomagnesemia: (5) Elevated troponin: Admission and Anticipated Discharge Date Admission Date: April 07, 2021 Supervising Physician Co-Signing Physician Notes Patient seen and examined, chart reviewed, case discussed with Dr. Connelly and I agree with the assessment and plan as above except as otherwise noted below. 70-year-old female with a history of prior small bowel obstruction status post ex lap for lysis of adhesions, PE on anticoagulation, mixed connective tissue disorder, and pneumatosis intestinalis admitted to [facility] 04/07/2021 with weakness and vomiting with SBO on CT. Surgery consult, not recommend surgery. Patient with initial improvement, and subsequent downgrade. Remains severely hypoalbuminemic with inadequate intake for several days, will initiate PPN. Continues with intermittent hypotension responsive to fluid boluses, likely intravascularly depleted with low albumin/third spacing. Continue anticoagulation. Check electrolytes daily replete as needed. At bedside patient reports she is fatigued and has had difficulty engaging with physical therapy. Hip flexion and ankle dorsiflexion/plantar flexion 4 -/5 bilaterally with easy fatigue, insurance account assistant strength grossly intact and moves all 4 extremities. No abdominal pain, no respiratory distress at time of assessment. Pro-Dylon negative, with chest x-ray findings? Atelectasis/compression, continue to follow clinically and start incentive spirometry. Subjective Patient lying in bed this morning in no acute stress. Blood pressures have been on the softer side. Patient is currently n.p.o., no acute complaints at present. Attempt to participate in physical therapy today however was limited due to weakness. Physical Exam Physical Exam: General: No acute distress HEENT: Cachectic otherwise normocephalic atraumatic Neck: Normal vision inspection Cardiac: Regular rate and rhythm I do not appreciate significant murmurs rubs or gallops, normal S1, normal S2, 1+ pedal edema Respiratory: Clear to auscultation bilaterally symmetrical chest expansion and did not appreciate significant wheezes rales rhonchi GI: Soft, nontender, nondistended MSK: Moves all extremities although fairly weak Skin: Bruising Neuro: Alert and oriented x4 Psych: Calm and cooperative with interview Results & Data Results & Data ([facility]) Vital Signs (Past 12 Hours) Vital Signs Temp Pulse Pulse Resp BP BP Pulse Ox 04/16/21 03:30 36.4 C L 04/16/21 03:11 101 H 18 116/74 94 04/16/21 02:00 92 H 10 L 94 04/16/21 01:30 93 H 11 L 95 04/16/21 01:00 89 12 97 04/16/21 00:38 95 H 04/16/21 00:30 100 H 21 04/16/21 00:00 36.3 C L 103 H 17 102/59 L 97 04/15/21 23:30 93 H 15 04/15/21 23:00 98 H 21 101/60 90 04/15/21 22:49 79/59 L 04/15/21 22:30 103 H 19 04/15/21 22:00 91 H 14 88/50 L 99 04/15/21 21:55 97/51 L 04/15/21 21:30 89 15 98 04/15/21 21:29 93 H 16 91/66 L 98 04/15/21 21:18 106/63 04/15/21 21:00 36.3 C L Laboratory Results 04/16/21 04/16/21 04/16/21 Range/Units 05:43 05:43 00:24 WBC 8.66 (4.8-10.8) K/uL RBC 3.12 L (4.2-5.4) M/uL Hgb 9.5 L (12.0-16.0) g/dL Hct 28.7 L (37-47) % MCV 92.0 (80-100) fL MCH 30.4 (25-34) pg MCHC 33.1 (32-36) g/dL RDW Std Deviation 51.5 H (36.4-46.3) fL RDW Coeff of Bo 15.1 H (11.5-14.5) % Plt Count 151 (130-400) K/uL MPV 10.2 (7.4-10.4) fL Immature Gran % (Auto) 0.3 % Neut % (Auto) 75.3 % Lymph % (Auto) 17.9 % [place] % (Auto) 6.4 % Eos % (Auto) 0.1 % Baso % (Auto) 0.0 % Neut # (Auto) 6.52 H (1.4-6.5) K/uL Lymph # (Auto) 1.55 (1.2-3.4) K/uL [place] # (Auto) 0.55 (0.11-0.59) K/uL Eos # (Auto) 0.01 (0-0.5) K/uL Baso # (Auto) 0.00 (0-0.2) K/uL Immature Gran # (Auto) 0.03 H (0.00-0.02) K/uL Sodium 141 (136-145) mmol/L Potassium 4.1 (3.5-5.1) mmol/L Chloride 114 H (98-107) mmol/L Carbon Dioxide 18 L (21-32) mmol/L Anion Gap 9.0 (3-11) BUN 28 H (7-18) mg/dl Creatinine 0.95 (0.6-1.2) mg/dl Est Cr Clr Drug Dosing 42.2 ml/min Est GFR ( Amer) 70.8 ml/min Est GFR (Non-Af Amer) 61.1 ml/min BUN/Creatinine Ratio 29.5 H (10-20) Glucose 81 (70-99) mg/dl POC Glucose 99 (70-99) mg/dl Calcium 7.1 L (8.5-10.1) mg/dl Ionized Calcium (1.12-1.32) mmol/L Total Bilirubin 0.3 (0.2-1) mg/dl AST 31 (15-37) U/L ALT 50 (12-78) Alkaline Phosphatase 88 (45-117) U/L Total Protein 3.9 L (6.4-8.2) gm/dl Albumin 1.4 L (3.4-5.0) gm/dl Globulin 2.5 (2.5-4.0) gm/dl Albumin/Globulin Ratio 0.6 L (0.9-2) Procalcitonin (0-0.5) ng/ml Nasal Screen MRSA (PCR) (Negative) Stl C. diff Tox B Gene (Neg) 04/15/21 04/15/21 04/15/21 Range/Units 23:54 23:52 23:31 WBC (4.8-10.8) K/uL RBC (4.2-5.4) M/uL Hgb (12.0-16.0) g/dL Hct (37-47) % MCV (80-100) fL MCH (25-34) pg MCHC (32-36) g/dL RDW Std Deviation (36.4-46.3) fL RDW Coeff of Bo (11.5-14.5) % Plt Count (130-400) K/uL MPV (7.4-10.4) fL Immature Gran % (Auto) % Neut % (Auto) % Lymph % (Auto) % [place] % (Auto) % Eos % (Auto) % Baso % (Auto) % Neut # (Auto) (1.4-6.5) K/uL Lymph # (Auto) (1.2-3.4) K/uL [place] # (Auto) (0.11-0.59) K/uL Eos # (Auto) (0-0.5) K/uL Baso # (Auto) (0-0.2) K/uL Immature Gran # (Auto) (0.00-0.02) K/uL Sodium (136-145) mmol/L Potassium (3.5-5.1) mmol/L Chloride (98-107) mmol/L Carbon Dioxide (21-32) mmol/L Anion Gap (3-11) BUN (7-18) mg/dl Creatinine (0.6-1.2) mg/dl Est Cr Clr Drug Dosing ml/min Est GFR ( Amer) ml/min Est GFR (Non-Af Amer) ml/min BUN/Creatinine Ratio (10-20) Glucose (70-99) mg/dl POC Glucose 16 L* 23 L* 59 L* (70-99) mg/dl Calcium (8.5-10.1) mg/dl Ionized Calcium (1.12-1.32) mmol/L Total Bilirubin (0.2-1) mg/dl AST (15-37) U/L ALT (12-78) Alkaline Phosphatase (45-117) U/L Total Protein (6.4-8.2) gm/dl Albumin (3.4-5.0) gm/dl Globulin (2.5-4.0) gm/dl Albumin/Globulin Ratio (0.9-2) Procalcitonin (0-0.5) ng/ml Nasal Screen MRSA (PCR) (Negative) Stl C. diff Tox B Gene (Neg) 04/15/21 04/15/21 04/15/21 Range/Units 23:25 23:10 21:30 WBC (4.8-10.8) K/uL RBC (4.2-5.4) M/uL Hgb (12.0-16.0) g/dL Hct (37-47) % MCV (80-100) fL MCH (25-34) pg MCHC (32-36) g/dL RDW Std Deviation (36.4-46.3) fL RDW Coeff of Bo (11.5-14.5) % Plt Count (130-400) K/uL MPV (7.4-10.4) fL Immature Gran % (Auto) % Neut % (Auto) % Lymph % (Auto) % [place] % (Auto) % Eos % (Auto) % Baso % (Auto) % Neut # (Auto) (1.4-6.5) K/uL Lymph # (Auto) (1.2-3.4) K/uL [place] # (Auto) (0.11-0.59) K/uL Eos # (Auto) (0-0.5) K/uL Baso # (Auto) (0-0.2) K/uL Immature Gran # (Auto) (0.00-0.02) K/uL Sodium (136-145) mmol/L Potassium (3.5-5.1) mmol/L Chloride (98-107) mmol/L Carbon Dioxide (21-32) mmol/L Anion Gap (3-11) BUN (7-18) mg/dl Creatinine (0.6-1.2) mg/dl Est Cr Clr Drug Dosing ml/min Est GFR ( Amer) ml/min Est GFR (Non-Af Amer) ml/min BUN/Creatinine Ratio (10-20) Glucose (70-99) mg/dl POC Glucose (70-99) mg/dl Calcium (8.5-10.1) mg/dl Ionized Calcium 1.12 (1.12-1.32) mmol/L Total Bilirubin (0.2-1) mg/dl AST (15-37) U/L ALT (12-78) Alkaline Phosphatase (45-117) U/L Total Protein (6.4-8.2) gm/dl Albumin (3.4-5.0) gm/dl Globulin (2.5-4.0) gm/dl Albumin/Globulin Ratio (0.9-2) Procalcitonin (0-0.5) ng/ml Nasal Screen MRSA (PCR) Negative (Negative) Stl C. diff Tox B Gene Negative Cdiff Gene (Neg) 04/15/21 04/15/21 04/15/21 Range/Units 19:37 19:12 19:06 WBC (4.8-10.8) K/uL RBC (4.2-5.4) M/uL Hgb (12.0-16.0) g/dL Hct (37-47) % MCV (80-100) fL MCH (25-34) pg MCHC (32-36) g/dL RDW Std Deviation (36.4-46.3) fL RDW Coeff of Bo (11.5-14.5) % Plt Count (130-400) K/uL MPV (7.4-10.4) fL Immature Gran % (Auto) % Neut % (Auto) % Lymph % (Auto) % [place] % (Auto) % Eos % (Auto) % Baso % (Auto) % Neut # (Auto) (1.4-6.5) K/uL Lymph # (Auto) (1.2-3.4) K/uL [place] # (Auto) (0.11-0.59) K/uL Eos # (Auto) (0-0.5) K/uL Baso # (Auto) (0-0.2) K/uL Immature Gran # (Auto) (0.00-0.02) K/uL Sodium (136-145) mmol/L Potassium (3.5-5.1) mmol/L Chloride (98-107) mmol/L Carbon Dioxide (21-32) mmol/L Anion Gap (3-11) BUN (7-18) mg/dl Creatinine (0.6-1.2) mg/dl Est Cr Clr Drug Dosing ml/min Est GFR ( Amer) ml/min Est GFR (Non-Af Amer) ml/min BUN/Creatinine Ratio (10-20) Glucose (70-99) mg/dl POC Glucose 70 62 L* 61 L* (70-99) mg/dl Calcium (8.5-10.1) mg/dl Ionized Calcium (1.12-1.32) mmol/L Total Bilirubin (0.2-1) mg/dl AST (15-37) U/L ALT (12-78) Alkaline Phosphatase (45-117) U/L Total Protein (6.4-8.2) gm/dl Albumin (3.4-5.0) gm/dl Globulin (2.5-4.0) gm/dl Albumin/Globulin Ratio (0.9-2) Procalcitonin (0-0.5) ng/ml Nasal Screen MRSA (PCR) (Negative) Stl C. diff Tox B Gene (Neg) 04/15/21 04/15/21 Range/Units 12:10 07:57 WBC (4.8-10.8) K/uL RBC (4.2-5.4) M/uL Hgb (12.0-16.0) g/dL Hct (37-47) % MCV (80-100) fL MCH (25-34) pg MCHC (32-36) g/dL RDW Std Deviation (36.4-46.3) fL RDW Coeff of Bo (11.5-14.5) % Plt Count (130-400) K/uL MPV (7.4-10.4) fL Immature Gran % (Auto) % Neut % (Auto) % Lymph % (Auto) % [place] % (Auto) % Eos % (Auto) % Baso % (Auto) % Neut # (Auto) (1.4-6.5) K/uL Lymph # (Auto) (1.2-3.4) K/uL [place] # (Auto) (0.11-0.59) K/uL Eos # (Auto) (0-0.5) K/uL Baso # (Auto) (0-0.2) K/uL Immature Gran # (Auto) (0.00-0.02) K/uL Sodium (136-145) mmol/L Potassium (3.5-5.1) mmol/L Chloride (98-107) mmol/L Carbon Dioxide (21-32) mmol/L Anion Gap (3-11) BUN (7-18) mg/dl Creatinine (0.6-1.2) mg/dl Est Cr Clr Drug Dosing ml/min Est GFR ( Amer) ml/min Est GFR (Non-Af Amer) ml/min BUN/Creatinine Ratio (10-20) Glucose (70-99) mg/dl POC Glucose 82 (70-99) mg/dl Calcium (8.5-10.1) mg/dl Ionized Calcium (1.12-1.32) mmol/L Total Bilirubin (0.2-1) mg/dl AST (15-37) U/L ALT (12-78) Alkaline Phosphatase (45-117) U/L Total Protein (6.4-8.2) gm/dl Albumin (3.4-5.0) gm/dl Globulin (2.5-4.0) gm/dl Albumin/Globulin Ratio (0.9-2) Procalcitonin 0.34 (0-0.5) ng/ml Nasal Screen MRSA (PCR) (Negative) Stl C. diff Tox B Gene (Neg) Medications Administered Current Inpatient Medications Acetaminophen (Acetaminophen 325 Mg Tab) 650 mg PO Q4H PRN PRN Reason: Pain or Fever Stop: 05/08/21 05:51 Dextrose (Dextrose 50% 50 Ml Syringe) 25 - 50 ml IV UD PRN; Protocol PRN Reason: Hypoglycemia Protocol Stop: 05/13/21 19:34 Last Admin: 04/15/21 23:35 Dose: 25 ml Documented by: Enoxaparin Sodium (Enoxaparin Inj 40 Mg/0.4 Ml Syr) 40 mg SQ Q12H FABIAN Stop: 05/11/21 10:29 Last Admin: 04/15/21 21:52 Dose: 40 mg Documented by: Fluticasone/Vilanterol (Fluticasone/Vilanterol 100/25mcg 14 Puffs/Inhaler) 1 puffs INH DAILY FABIAN Stop: 05/08/21 08:59 Last Admin: 04/15/21 09:36 Dose: 1 puffs Documented by: Glucagon (Glucagon For Inj 1 Mg Vial) 1 mg SQ UD PRN; Protocol PRN Reason: Hypoglycemia Protocol Stop: 05/13/21 19:34 Glucose (Glucose 10 Tabs/Tube) 4 - 8 tabs PO UD PRN; Protocol PRN Reason: Hypoglycemia Protocol Stop: 05/13/21 19:34 Glucose (Glucose 40% Gel 15 Gm Tube) 15 - 30 gm PO UD PRN; Protocol PRN Reason: Hypoglycemia Protocol Stop: 05/13/21 19:34 Pantoprazole Sodium 40 mg/ (Syringe) 10 mls @ 5 mls/min IV BID FABIAN Stop: 05/08/21 05:44 Last Admin: 04/15/21 21:52 Dose: 5 mls/min Documented by: Prochlorperazine 5 mg/ Syringe 5 mls @ 5 mls/min IV Q6H PRN PRN Reason: Nausea not relieved by Zofran Stop: 05/13/21 21:38 Last Admin: 04/14/21 20:51 Dose: 5 mls/min Documented by: Dextrose/Sodium Chloride (D5w And Nss) 1,000 mls @ 80 mls/hr IV .[id number] FABIAN Stop: 04/17/21 01:44 Last Admin: 04/15/21 23:50 Dose: 80 mls/hr Documented by: Miscellaneous (Carbohydrates For Hypoglycemia ) 15 - 30 gm PO UD PRN PRN Reason: Hypoglycemia Protocol Stop: 05/13/21 19:34 Miscellaneous Information (Tpn/Ppn Consult Pharmacy) 1 ea N/A UD PRN PRN Reason: Consult Stop: 05/15/21 07:59 Ondansetron HCl (Ondansetron Inj 2 Mg/Ml 2 Ml Vial) 4 mg IV Q4H PRN PRN Reason: Nausea Stop: 05/13/21 21:38 Last Admin: 04/15/21 13:10 Dose: 4 mg Documented by: Polyethylene Glycol (Polyethylene (Miralax) 17 Gm Pack) 17 gm PO DAILY PRN PRN Reason: Constipation Stop: 05/08/21 05:51 Prednisone (Prednisone 10 Mg Tablet) 10 mg PO DAILY [facility] Stop: 05/08/21 08:59 Last Admin: 04/15/21 09:36 Dose: 10 mg Documented by: Tramadol HCl (Tramadol Hcl 50 Mg Tablet) 50 mg PO DAILY PRN PRN Reason: Pain Stop: 05/08/21 05:51
[2021-04-16] MEDS: ENOXAPARIN INJ 40 MG/0.4 ML SYR SQ SCH ×2 (09:10→20:57)
[2021-04-16] MEDS: PANTOprazole 40 MG in SYRINGE 0 ML IV SCH ×2 (09:15→20:56)
[2021-04-16] MEDS: FLUTICASONE/VILANTEROL 100/25MCG 14 PUFFS/INHALER INH SCH (09:15)
[2021-04-16] MEDS: predniSONE 10 MG TABLET PO SCH (09:16)
[2021-04-16] MEDS: DEXTROSE 50% 50 ML SYRINGE IV PRN (11:53)
[2021-04-16] MEDS: THIAMINE HCL 100 MG in SYRINGE 9 ML IV SCH (14:42)
[2021-04-16] MEDS: D5W AND NSS 1,000 ML IV SCH (14:43)
[2021-04-16 15:47] LABS: Magnesium 1.6 mg/dl (1.8-2.4); Phosphorus 2.1 mg/dl (2.5-4.9)
[2021-04-17] MEDS: D5W AND NSS 1,000 ML IV SCH (01:47)
[2021-04-17] MEDS: DEXTROSE 50% 50 ML SYRINGE IV PRN (05:04)
[2021-04-17 05:21] LABS: Eosinophils # (auto) 0.02 K/uL (0-0.5); Eosinophils % (auto) 0.2 %; Hematocrit (blood only) 30.7 % (37-47); Immature Granulocytes # (auto) 0.03 K/uL (0.00-0.02); Immature Granulocytes % (auto) 0.4 %; Lymphocytes # (auto) 1.74 K/uL (1.2-3.4); Lymphocytes % (auto) 20.6 %; Mean Corpuscular Hemoglobin 30.8 pg (25-34); Mean Corpuscular Hgb Conc 32.6 g/dL (32-36); Mean Corpuscular Volume 94.5 fL (80-100); Mean Platelet Volume 10.5 fL (7.4-10.4); Monocytes # (auto) 0.44 K/uL (0.11-0.59); Monocytes % (auto) 5.2 %; Neutrophils # (auto) 6.21 K/uL (1.4-6.5); Neutrophils % (auto) 73.6 %; Platelet Count 188 K/uL (130-400); RDW Coefficient of Variation 15.3 % (11.5-14.5); RDW Standard Deviation 53.1 fL (36.4-46.3); Red Blood Count 3.25 M/uL (4.2-5.4); White Blood Count 8.44 K/uL (4.8-10.8)
[2021-04-17] MEDS ORDERED: D5W AND NSS 1,000 ML IV SCH (05:30)
[2021-04-17 05:44] LABS: Albumin Level 1.3 gm/dl (3.4-5.0); BUN Creatinine Ratio 34.7 (10-20); Creatinine Clr Calc Pharmacy 49.5 ml/min; Est GFR (African American) 85.9 ml/min; Est GFR (Non-African American) 74.1 ml/min; Potassium 3.9 mmol/L (3.5-5.1)
[2021-04-17 05:47] LABS: Albumin Globulin Ratio 0.5 (0.9-2); Bilirubin,Total 0.4 mg/dl (0.2-1); Globulin 2.7 gm/dl (2.5-4.0); Magnesium 1.5 mg/dl (1.8-2.4); Phosphorus 1.9 mg/dl (2.5-4.9)
--- NOTE | 2021-04-17 08:38 | Hospitalist Progress Note ---
Date of Service April 17, 2021 Assessment & Plan (1) Partial obstruction of small intestine: Plan: Ashia Ca is a 70 yo female with PMHx of prior SBO s/p ex lap for lysis of adhesions, PE on anticoagulation, mixed connective tissue disorder, and pneumatosis intestinalis who was admitted to [facility] on 04/07/21 with weakness and vomiting, found to have partial SBO on CT. Partial obstruction of small intestine, improved, then worsened Recent admission - had exploratory laparotomy on 01/29/21, with lysis of adhesion. Record review of outpatient gen surg visit 03/15/21 notes that patient was at risk for having additional bowel obstructions due to her extensive jejunal disease. States that "If admitted to the hospital again with similar symptoms would do everything possible apart from surgery including long- term TPN if necessary." Also states that patient "likely would not tolerate a bowel resection of her diseased bowel because of the extent of the disease and risk for short bowel syndrome." CT abdomen and pelvis 04/07/21: evidence of high-grade partial small bowel obstruction. Received Zosyn q8h from 04/08 to 04/10 for empiric coverage; discontinued Zosyn 04/10. Gastroenterology was consulted recommending continuing conservative therapy, no role for GI intervention recommending surgical evaluation they have signed off. - General surgery on consult, appreciate commendations. -Per general surgery, NG tube removed 04/11 and diet re-started with CLD. Continue conservative management. -Recommended advancing diet to clear liquids - Downgraded to full liquid w/o improvement in N/V. Will trial 24 hours NPO. -Repeated KUB 04/15, showing continued small bowel obstruction. -Repeated KUB 04/17 showing slightly improved however continued small bowel obstruction - Continue IV protonix 40mg BID - PPN started patient tolerating - Gastroenterology consulted appreciate recommendations -Continue PPI and miralax, -No Gi Intervention recommend surgical evaluation GI signed off -If she fails to continue to improve will need to consider TPN Hypotension, MAP to lows of ~60 Responsive to fluid boluses suspect third spacing secondary to severe protein malnutrition. -Suspect will improve with PPN -Continue to monitor Dyspnea Differential: hypervolemia, asthma, pneumonia, PE (has hx of, and has new DVT this admission, but currently on therapeutic Lovenox) - cxr: Small left pleural effusion with left basilar consolidation, new from 04/08/2021. Suspect atelectasis. - Encouraged use of incentive spirometer - Improving Severe Protein Calorie Malnutrition - Nutrition consulted. -PPN started today Scleroderma - continue chronic prednisone 10 PO DVT - TTE as noted above - RLE doppler 04/09: DVT in the common femoral vein with extension to the superficial femoral vein and profunda femoris vein. - INR on admission subtherapeutic at 1.9, warfarin on hold for concern of failure of warfarin therapy but has had fluctuating INR as outpatient. -We will continue the patient on Lovenox as an outpatient and defer transition to warfarin to outpatient physician. - Started Lovenox 40mg SQ BID on 04/11 Hypoglycemia Patient with recurrent hypoglycemia overnight. Responded well to 500cc bolus of D5W NS. - due to poor oral intake sec to N/V -Suspect will improve prove now that PPN has been started Electrolyte Abnormalities: hypokalemia, hypomagnesemia, hypophosphatemia - Will continue to monitor electrolytes and replete as indicated. - Required phos and magnesium replacement 04/14. - Recheck BMP, mag, and phos tomorrow AM Elevated troponin at admission - Peaked at 0.248 on 04/07. - Most likely due to demand ischemia. Hx of PE - On warfarin at home. Held - Acute DVT as noted above. Currently on BID Lovenox 40 TAB, resolved w/ hydration FENa: NPO Code Status: Full code DVT PPX: Lovenox therapeutic 40 mg SQ BID PT/OT: Consulted, pending placement Case Management: Discharge planning Dispo: Med/surg: upgrading to PCU because of hypotension. (2) Hypoglycemia: (3) Acute hypotension: (4) Hypomagnesemia: (5) Elevated troponin: Admission and Anticipated Discharge Date Admission Date: April 07, 2021 Supervising Physician Co-Signing Physician Notes Patient seen and examined, chart reviewed, case discussed with Dr. Connelly and I agree with the assessment and plan as above except as otherwise noted below. 70-year-old female with a history of prior small bowel obstruction status post ex lap for lysis of adhesions, PE on anticoagulation, mixed connective tissue disorder, and pneumatosis intestinalis admitted to [facility] 04/07/2021 with weakness and vomiting with SBO on CT. Remains hypoalbuminemic, not a good surgical candidate. Patient actually somewhat improved today, tolerating liquids well with return of flatus and small BM. PPN initiated, continue to follow with medical management. Blood pressure is improved, normotensive today. Engaging with PT/OT at time of visit, continues to appear thin but with intact hip flexion, ankle dorsiflexion/plantar flexion, street supervisor strength, visual acuity/hearing grossly intact. No abdominal pain on assessment. Her long-term plan will have to follow patient's progression, if she were to regress in diet or not tolerate adequate nutrition at that point consider evaluation for TPN therapy, however she is progressing at this point and will defer this and continue PPN for now. Subjective Patient lying in bed this morning in no acute distress. She reports she feels hungry and has been passing gas. She denies any chest pressure chest pain, endorsing weakness. She has not had a bowel movement yet, reports voiding, sleeping well overnight. Acute concerns relate to resolution of her SBO and wanting to eat. Physical Exam Physical Exam: General: No acute distress HEENT: Cachectic otherwise normocephalic atraumatic Neck: Normal vision inspection Cardiac: Regular rate and rhythm I do not appreciate significant murmurs rubs or gallops, normal S1, normal S2, 1+ pedal edema Respiratory: Clear to auscultation bilaterally symmetrical chest expansion and did not appreciate significant wheezes rales rhonchi GI: Soft, nontender, nondistended MSK: Moves all extremities although fairly weak Skin: Bruising Neuro: Alert and oriented x4 Psych: Calm and cooperative with interview Results & Data Results & Data ([facility]) Vital Signs (Past 12 Hours) Vital Signs Temp Pulse Pulse Resp BP Pulse Ox 04/17/21 07:38 36.4 C L 89 14 100/65 96 04/17/21 03:46 36.7 C 106 H 20 95/67 L 95 04/16/21 23:19 36.5 C 94 H 16 102/58 L 96 Laboratory Results 04/17/21 04/17/21 04/17/21 Range/Units 07:32 05:19 04:57 WBC (4.8-10.8) K/uL RBC (4.2-5.4) M/uL Hgb (12.0-16.0) g/dL Hct (37-47) % MCV (80-100) fL MCH (25-34) pg MCHC (32-36) g/dL RDW Std Deviation (36.4-46.3) fL RDW Coeff of Bo (11.5-14.5) % Plt Count (130-400) K/uL MPV (7.4-10.4) fL Immature Gran % (Auto) % Neut % (Auto) % Lymph % (Auto) % [place] % (Auto) % Eos % (Auto) % Baso % (Auto) % Neut # (Auto) (1.4-6.5) K/uL Lymph # (Auto) (1.2-3.4) K/uL [place] # (Auto) (0.11-0.59) K/uL Eos # (Auto) (0-0.5) K/uL Baso # (Auto) (0-0.2) K/uL Immature Gran # (Auto) (0.00-0.02) K/uL Sodium (136-145) mmol/L Potassium (3.5-5.1) mmol/L Chloride (98-107) mmol/L Carbon Dioxide (21-32) mmol/L Anion Gap (3-11) BUN (7-18) mg/dl Creatinine (0.6-1.2) mg/dl Est Cr Clr Drug Dosing ml/min Est GFR ( Amer) ml/min Est GFR (Non-Af Amer) ml/min BUN/Creatinine Ratio (10-20) Glucose (70-99) mg/dl POC Glucose 91 118 H 42 L* (70-99) mg/dl Calcium (8.5-10.1) mg/dl Phosphorus (2.5-4.9) mg/dl Magnesium (1.8-2.4) mg/dl Total Bilirubin (0.2-1) mg/dl AST (15-37) U/L ALT (12-78) Alkaline Phosphatase (45-117) U/L Total Protein (6.4-8.2) gm/dl Albumin (3.4-5.0) gm/dl Globulin (2.5-4.0) gm/dl Albumin/Globulin Ratio (0.9-2) Triglycerides (0-150) mg/dl Random Cortisol mcg/dl 04/17/21 04/17/21 04/17/21 Range/Units 04:55 04:52 04:52 WBC 8.44 (4.8-10.8) K/uL RBC 3.25 L (4.2-5.4) M/uL Hgb 10.0 L (12.0-16.0) g/dL Hct 30.7 L (37-47) % MCV 94.5 (80-100) fL MCH 30.8 (25-34) pg MCHC 32.6 (32-36) g/dL RDW Std Deviation 53.1 H (36.4-46.3) fL RDW Coeff of Bo 15.3 H (11.5-14.5) % Plt Count 188 (130-400) K/uL MPV 10.5 H (7.4-10.4) fL Immature Gran % (Auto) 0.4 % Neut % (Auto) 73.6 % Lymph % (Auto) 20.6 % [place] % (Auto) 5.2 % Eos % (Auto) 0.2 % Baso % (Auto) 0.0 % Neut # (Auto) 6.21 (1.4-6.5) K/uL Lymph # (Auto) 1.74 (1.2-3.4) K/uL [place] # (Auto) 0.44 (0.11-0.59) K/uL Eos # (Auto) 0.02 (0-0.5) K/uL Baso # (Auto) 0.00 (0-0.2) K/uL Immature Gran # (Auto) 0.03 H (0.00-0.02) K/uL Sodium 144 (136-145) mmol/L Potassium 3.9 (3.5-5.1) mmol/L Chloride 118 H (98-107) mmol/L Carbon Dioxide 21 (21-32) mmol/L Anion Gap 5.0 (3-11) BUN 28 H (7-18) mg/dl Creatinine 0.81 (0.6-1.2) mg/dl Est Cr Clr Drug Dosing 49.5 ml/min Est GFR ( Amer) 85.9 ml/min Est GFR (Non-Af Amer) 74.1 ml/min BUN/Creatinine Ratio 34.7 H (10-20) Glucose 59 L (70-99) mg/dl POC Glucose 66 L* (70-99) mg/dl Calcium 7.0 L (8.5-10.1) mg/dl Phosphorus 1.9 L (2.5-4.9) mg/dl Magnesium 1.5 L (1.8-2.4) mg/dl Total Bilirubin 0.4 (0.2-1) mg/dl AST 60 H (15-37) U/L ALT 67 (12-78) Alkaline Phosphatase 91 (45-117) U/L Total Protein 4.0 L (6.4-8.2) gm/dl Albumin 1.3 L (3.4-5.0) gm/dl Globulin 2.7 (2.5-4.0) gm/dl Albumin/Globulin Ratio 0.5 L (0.9-2) Triglycerides (0-150) mg/dl Random Cortisol mcg/dl 04/16/21 04/16/21 04/16/21 Range/Units 23:56 20:08 18:16 WBC (4.8-10.8) K/uL RBC (4.2-5.4) M/uL Hgb (12.0-16.0) g/dL Hct (37-47) % MCV (80-100) fL MCH (25-34) pg MCHC (32-36) g/dL RDW Std Deviation (36.4-46.3) fL RDW Coeff of Bo (11.5-14.5) % Plt Count (130-400) K/uL MPV (7.4-10.4) fL Immature Gran % (Auto) % Neut % (Auto) % Lymph % (Auto) % [place] % (Auto) % Eos % (Auto) % Baso % (Auto) % Neut # (Auto) (1.4-6.5) K/uL Lymph # (Auto) (1.2-3.4) K/uL [place] # (Auto) (0.11-0.59) K/uL Eos # (Auto) (0-0.5) K/uL Baso # (Auto) (0-0.2) K/uL Immature Gran # (Auto) (0.00-0.02) K/uL Sodium (136-145) mmol/L Potassium (3.5-5.1) mmol/L Chloride (98-107) mmol/L Carbon Dioxide (21-32) mmol/L Anion Gap (3-11) BUN (7-18) mg/dl Creatinine (0.6-1.2) mg/dl Est Cr Clr Drug Dosing ml/min Est GFR ( Amer) ml/min Est GFR (Non-Af Amer) ml/min BUN/Creatinine Ratio (10-20) Glucose (70-99) mg/dl POC Glucose 80 86 83 (70-99) mg/dl Calcium (8.5-10.1) mg/dl Phosphorus (2.5-4.9) mg/dl Magnesium (1.8-2.4) mg/dl Total Bilirubin (0.2-1) mg/dl AST (15-37) U/L ALT (12-78) Alkaline Phosphatase (45-117) U/L Total Protein (6.4-8.2) gm/dl Albumin (3.4-5.0) gm/dl Globulin (2.5-4.0) gm/dl Albumin/Globulin Ratio (0.9-2) Triglycerides (0-150) mg/dl Random Cortisol mcg/dl 04/16/21 04/16/21 04/16/21 Range/Units 12:47 12:47 12:13 WBC (4.8-10.8) K/uL RBC (4.2-5.4) M/uL Hgb (12.0-16.0) g/dL Hct (37-47) % MCV (80-100) fL MCH (25-34) pg MCHC (32-36) g/dL RDW Std Deviation (36.4-46.3) fL RDW Coeff of Bo (11.5-14.5) % Plt Count (130-400) K/uL MPV (7.4-10.4) fL Immature Gran % (Auto) % Neut % (Auto) % Lymph % (Auto) % [place] % (Auto) % Eos % (Auto) % Baso % (Auto) % Neut # (Auto) (1.4-6.5) K/uL Lymph # (Auto) (1.2-3.4) K/uL [place] # (Auto) (0.11-0.59) K/uL Eos # (Auto) (0-0.5) K/uL Baso # (Auto) (0-0.2) K/uL Immature Gran # (Auto) (0.00-0.02) K/uL Sodium (136-145) mmol/L Potassium (3.5-5.1) mmol/L Chloride (98-107) mmol/L Carbon Dioxide (21-32) mmol/L Anion Gap (3-11) BUN (7-18) mg/dl Creatinine (0.6-1.2) mg/dl Est Cr Clr Drug Dosing ml/min Est GFR ( Amer) ml/min Est GFR (Non-Af Amer) ml/min BUN/Creatinine Ratio (10-20) Glucose 121 H (70-99) mg/dl POC Glucose 17 L* (70-99) mg/dl Calcium (8.5-10.1) mg/dl Phosphorus 2.1 L (2.5-4.9) mg/dl Magnesium 1.6 L (1.8-2.4) mg/dl Total Bilirubin (0.2-1) mg/dl AST (15-37) U/L ALT (12-78) Alkaline Phosphatase (45-117) U/L Total Protein (6.4-8.2) gm/dl Albumin (3.4-5.0) gm/dl Globulin (2.5-4.0) gm/dl Albumin/Globulin Ratio (0.9-2) Triglycerides 70 (0-150) mg/dl Random Cortisol mcg/dl 04/16/21 04/16/21 04/15/21 Range/Units 11:40 11:38 07:57 WBC (4.8-10.8) K/uL RBC (4.2-5.4) M/uL Hgb (12.0-16.0) g/dL Hct (37-47) % MCV (80-100) fL MCH (25-34) pg MCHC (32-36) g/dL RDW Std Deviation (36.4-46.3) fL RDW Coeff of Bo (11.5-14.5) % Plt Count (130-400) K/uL MPV (7.4-10.4) fL Immature Gran % (Auto) % Neut % (Auto) % Lymph % (Auto) % [place] % (Auto) % Eos % (Auto) % Baso % (Auto) % Neut # (Auto) (1.4-6.5) K/uL Lymph # (Auto) (1.2-3.4) K/uL [place] # (Auto) (0.11-0.59) K/uL Eos # (Auto) (0-0.5) K/uL Baso # (Auto) (0-0.2) K/uL Immature Gran # (Auto) (0.00-0.02) K/uL Sodium (136-145) mmol/L Potassium (3.5-5.1) mmol/L Chloride (98-107) mmol/L Carbon Dioxide (21-32) mmol/L Anion Gap (3-11) BUN (7-18) mg/dl Creatinine (0.6-1.2) mg/dl Est Cr Clr Drug Dosing ml/min Est GFR ( Amer) ml/min Est GFR (Non-Af Amer) ml/min BUN/Creatinine Ratio (10-20) Glucose (70-99) mg/dl POC Glucose 32 L* 51 L* (70-99) mg/dl Calcium (8.5-10.1) mg/dl Phosphorus (2.5-4.9) mg/dl Magnesium (1.8-2.4) mg/dl Total Bilirubin (0.2-1) mg/dl AST (15-37) U/L ALT (12-78) Alkaline Phosphatase (45-117) U/L Total Protein (6.4-8.2) gm/dl Albumin (3.4-5.0) gm/dl Globulin (2.5-4.0) gm/dl Albumin/Globulin Ratio (0.9-2) Triglycerides (0-150) mg/dl Random Cortisol 38.13 mcg/dl Medications Administered Current Inpatient Medications Acetaminophen (Acetaminophen 325 Mg Tab) 650 mg PO Q4H PRN PRN Reason: Pain or Fever Stop: 05/08/21 05:51 Dextrose (Dextrose 50% 50 Ml Syringe) 25 - 50 ml IV UD PRN; Protocol PRN Reason: Hypoglycemia Protocol Stop: 05/13/21 19:34 Last Admin: 04/17/21 05:04 Dose: 50 ml Documented by: Enoxaparin Sodium (Enoxaparin Inj 40 Mg/0.4 Ml Syr) 40 mg SQ Q12H [facility] Stop: 05/11/21 10:29 Last Admin: 04/16/21 20:57 Dose: 40 mg Documented by: Fluticasone/Vilanterol (Fluticasone/Vilanterol 100/25mcg 14 Puffs/Inhaler) 1 puffs INH DAILY [facility] Stop: 05/08/21 08:59 Last Admin: 04/16/21 09:15 Dose: 1 puffs Documented by: Glucagon (Glucagon For Inj 1 Mg Vial) 1 mg SQ UD PRN; Protocol PRN Reason: Hypoglycemia Protocol Stop: 05/13/21 19:34 Glucose (Glucose 10 Tabs/Tube) 4 - 8 tabs PO UD PRN; Protocol PRN Reason: Hypoglycemia Protocol Stop: 05/13/21 19:34 Glucose (Glucose 40% Gel 15 Gm Tube) 15 - 30 gm PO UD PRN; Protocol PRN Reason: Hypoglycemia Protocol Stop: 05/13/21 19:34 Pantoprazole Sodium 40 mg/ (Syringe) 10 mls @ 5 mls/min IV BID [facility] Stop: 05/08/21 05:44 Last Admin: 04/16/21 20:56 Dose: 5 mls/min Documented by: Prochlorperazine 5 mg/ Syringe 5 mls @ 5 mls/min IV Q6H PRN PRN Reason: Nausea not relieved by Zofran Stop: 05/13/21 21:38 Last Admin: 04/14/21 20:51 Dose: 5 mls/min Documented by: Thiamine HCl 100 mg/ Syringe 10 mls @ 2 mls/min IV QAM [facility] Stop: 05/16/21 13:59 Last Admin: 04/16/21 14:42 Dose: 2 mls/min Documented by: Dextrose/Sodium Chloride (D5w And Nss) 1,000 mls @ 80 mls/hr IV .[id number] [facility] Stop: 04/17/21 17:59 Last Admin: 04/17/21 05:26 Dose: 80 mls/hr Documented by: Miscellaneous (Carbohydrates For Hypoglycemia ) 15 - 30 gm PO UD PRN PRN Reason: Hypoglycemia Protocol Stop: 05/13/21 19:34 Miscellaneous Information (Tpn/Ppn Consult Pharmacy) 1 ea N/A UD PRN PRN Reason: Consult Stop: 05/15/21 07:59 Ondansetron HCl (Ondansetron Inj 2 Mg/Ml 2 Ml Vial) 4 mg IV Q4H PRN PRN Reason: Nausea Stop: 05/13/21 21:38 Last Admin: 04/15/21 13:10 Dose: 4 mg Documented by: Polyethylene Glycol (Polyethylene (Miralax) 17 Gm Pack) 17 gm PO DAILY PRN PRN Reason: Constipation Stop: 05/08/21 05:51 Prednisone (Prednisone 10 Mg Tablet) 10 mg PO DAILY [facility] Stop: 05/08/21 08:59 Last Admin: 04/16/21 09:16 Dose: 10 mg Documented by: Tramadol HCl (Tramadol Hcl 50 Mg Tablet) 50 mg PO DAILY PRN PRN Reason: Pain Stop: 05/08/21 05:51
[2021-04-17] MEDS: THIAMINE HCL 100 MG in SYRINGE 9 ML IV SCH (08:43)
[2021-04-17] MEDS: predniSONE 10 MG TABLET PO SCH (08:43)
[2021-04-17] MEDS: PANTOprazole 40 MG in SYRINGE 0 ML IV SCH ×2 (08:43→21:09)
[2021-04-17] MEDS: FLUTICASONE/VILANTEROL 100/25MCG 14 PUFFS/INHALER INH SCH (08:43)
--- NOTE | 2021-04-17 08:49 | XRay Report ---
XR KUB/Abdomen 1 view CLINICAL HISTORY: sbo TECHNIQUE: 1 view of the abdomen was obtained. Comparison: Comparison is made to abdomen radiographs 04/15/2021 FINDINGS: Lung bases are unremarkable. The osseous structures are grossly unremarkable. Multiple gas-distended loops of bowel are seen measuring up to 45 mm in diameter. A moderate amount of stool is noted within the large bowel. IMPRESSION: Multiple gas-distended loops of small bowel compatible with small bowel obstruction, possibly slightl y improved from prior exam. Of note, upright abdominal radiograph is more sensitive. ACT 112: Negative or not required by law. Electronically signed by: Damion Prince M.D. 04/17/2021 8:48 AM
--- NOTE | 2021-04-17 09:38 | Gastrointestinal Consultation ---
Date of Consultation April 17, 2021 Assessment & Plan (1) Partial obstruction of small intestine: -Continue PPI & Miralax. When eating, agree with etcher enameling evaluation. -Agree with [facility]. No further GI interventions/testing warranted in this surgical situation. If persistent SBO on imaging, consider surgical evaluation and replacing NG tube. Supervising Physician Co-Signing Physician Notes I personally evaluated the patient and agree with the findings as documented by Rosa M Flores, PAC Exam: abd: soft, nt, nd daily upright KUBs, serial abdominal exams. History of Present Illness Reason for Consultation: n/v/decreased appetite Attending Physician: Ronak Callahan MD History of Present Illness Patient is a 70 yo female admitted to [facility] for SBO. [facility] has been asked for a second opinion of n/v and decreased appetite. First opinion was from [facility] as patient has previously followed with [facility] in [place] for her complex surgical & GI issues. She was admitted on 04/07/21 with abdominal pain, nausea, vomiting, inability to tolerate a diet. A CT scan without contrast indicated a high grade distal small bowel obstruction with transition point proximal to the TI with dilated proximal small bowel loops and dilated stomach. She notes she had an NG tube in during this admission but could not tolerate it per her reports. She reportedly fired [facility]. She was at one point during the admission advanced to solids, but is now back to NPO. Patients ongoing issues began when she had a bowel perforation in 2018 that resulted in a right hemicolectomy and prolonged post operative ileus and recovery. She notes that since then she has had 4 bowel obstructions. In January 2021, she had a bowel obstructions and a CT at that time revealed extensive chronic pneumatosis intestinalis of the jejunum, with obstruction, no transition point identified. Pneumoperitoneum was demonstrated. She had a laparostomy with lysis of adhesions and she improved. She notes that since that time she has been unable to eat regular food without GI symptoms. Xray at present shows a persistent small bowel obstruction with some improvement. Patient no longer has an NG tube in. She notes she is hungry. She notes she is moving her bowels with small amounts of loose stool. Allergies Allergy/AdvReac Type Severity Reaction Status Date / Time latex Allergy Unknown Unknown Verified 04/07/21 20:49 leflunomide AdvReac Unknown Unknown Verified 04/07/21 20:49 Home Medications Medication Instructions Recorded Confirmed Type budesonide-formoterol HFA 160 1 puff INHALATION DIRECTED 10/19/19 04/07/21 History mcg-4.5 mcg/actuation aerosol inhaler (Symbicort) hydroxychloroquine 200 mg tablet 200 mg PO DAILY 03/10/20 04/07/21 History ergocalciferol (vitamin D2) 1,250 50,000 unit PO .QTUESDAY 01/29/21 04/07/21 History mcg (50,000 unit) capsule prednisone 10 mg tablet 10 mg PO DAILY 01/29/21 04/07/21 History pantoprazole 40 mg tablet,delayed 40 mg PO BID #60 tab 02/18/21 04/07/21 Rx release tramadol 50 mg tablet 50 mg PO UD PRN 04/07/21 04/07/21 History warfarin 5 mg tablet 2.5 mg PO DAILY 04/07/21 04/07/21 History Patient History Medical History (Updated 04/11/21 @ 19:07 by Norman Gabriel MD) Heart disease Kidney stones Mixed connective tissue disease Pulmonary emboli Restrictive lung disease SBO (small bowel obstruction) Sepsis Surgical History History of ankle surgery [place] of [place] [facility] [place]OS[place] History of lithotripsy renal S/P cataract surgery S/P cholecystectomy Family History Mother Squamous cell carcinoma Uterine cancer Breast cancer Hypertension Father Squamous cell carcinoma Breast cancer Hypertension Diabetes Cardiac disorder Family/Other Uterine cancer Breast cancer Denies family history of Ovarian cancer Colorectal cancer Social History Smoking Status: Former smoker Hx Alcohol Use: No Hx Substance Use: No Preferred Language: Urdu Communication Ability: Effective 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 Beliefs That Will Affect Care: None marital status: Current Living Situation: Alone Other Information That Helps Us Care for You: No Feels Safe at Home: Yes Safety Concerns: Feels Safe At This Time Assistive Devices: Oxygen - Continuous Review of Systems Constitutional: + fatigue Patient notes she feels hungry Respiratory: no dyspnea Cardiovascular: no chest pain Gastrointestinal: + abdominal pain, + nausea and + diarrhea/loose stools Musculoskeletal: no problem reported Psychiatric: no problem reported Physical Exam Constitutional: WD/WN, vitals as above Respiratory: normal respiratory effort, lungs clear to auscultation Cardiovascular: Rate/Rhythm: regular rate Gastrointestinal (Abdomen): + bowel sounds, non-tender, mild distention Musculoskeletal: Head/Neck/Chest: normocephalic Psychiatric: Orientation: alert and oriented x 3 Results & Data ([facility]) Vital Signs (Past 12 Hours) Vital Signs Temp Pulse Pulse Resp BP Pulse Ox 04/17/21 07:38 36.4 C L 89 14 100/65 96 04/17/21 03:46 36.7 C 106 H 20 95/67 L 95 04/16/21 23:19 36.5 C 94 H 16 102/58 L 96 PG Care Time/CCT Total # of Minutes Spent Total Time Spent with Patient: Total time spent is greater than 50% in coordination of care (as documented) at patient's floor/unit and/or counseling patient: Coding Level of Care Code 28830 Initial Inpt Care Lvl 3 Diagnoses Partial obstruction of small intestine K56.600
--- NOTE | 2021-04-17 10:53 | Surgery Progress Note ---
Date of Service April 17, 2021 Assessment & Plan (1) Partial obstruction of small intestine: Plan: General surgery has been re-engaged out to for patient's failure to tolerate a diet & concern for SBO -KUB today revealed some gas filled loops of small bowel, consistent with SBO, and slightly improved from prior -Currently patient denies any abdominal complaints. Says she has not vomited in days. Denies any nausea/pain. Passing flatus and had a small BM yesterday -Biggest complaint is that she feels weak -Agree with starting PPN or some type of IV nutrition while she has not had anything meaningful to eat now for some time. Manage electrolyte abnormalities -Patient is not vomiting and denies nausea, therefore ok to hold off on NGT. Says she will "fight tooth and nail" to refuse it if recommended. She can probably trial some clear liquids as she is having some form of bowel function and denies belly complaints -No plans for surgical intervention in this patient... Prior surgery was difficult (underwent exlap and ADOLFO on 01/29). Admission and Anticipated Discharge Date Admission Date: April 07, 2021 Subjective Patient says she feels weak and fatigued. Notes she was having some vomiting after she transitioned to a regular diet, but has not had any nausea/vomiting now for days. She is passing flatus, says last BM was yesterday (small and soft). Denies any abdominal pain. Says she is hungry. Physical Exam Physical Exam: awake/alert Gastrointestinal (Abdomen): Inspection/Auscultation: + abdomen distended (mild) Percussion/Palpation: abdomen soft; abdomen nontender Results & Data ([facility]) Vital Signs (Past 12 Hours) Vital Signs Temp Pulse Pulse Resp BP Pulse Ox 04/17/21 07:38 36.4 C L 89 14 100/65 96 04/17/21 03:46 36.7 C 106 H 20 95/67 L 95 04/16/21 23:19 36.5 C 94 H 16 102/58 L 96 PG Care Time/CCT Total # of Minutes Spent Total Time Spent with Patient: Total time spent is greater than 50% in coordination of care (as documented) at patient's floor/unit and/or counseling patient: Coding Level of Care Code 13688 Subseq Hosp Care Lvl 1 Diagnoses Partial obstruction of small intestine K56.600
[2021-04-17] MEDS: ENOXAPARIN INJ 40 MG/0.4 ML SYR SQ SCH ×2 (11:01→21:09)
[2021-04-17] MEDS ORDERED: DEXTROSE 10% 1,000 ML IV PRN (12:13)
--- NOTE | 2021-04-17 14:35 | Pharmacy Report ---
Pharmacy PN Initial Consult - Date of Service April 17, 2021 - Scope Pharmacy has been consulted to manage parenteral nutrition orders and order appropriate labs. As part of the Nutrition Support Team guidelines, pharmacy will work in conjunction with dietary when determining the patients caloric needs. - Subjective The patient is a 70 year old F admitted on 04/07/21 22:56 for SBO. Patient is to receive parenteral nutrition for [INDICATION]. Pertinent PMH: - Objective Height: 5 ft 1 in Weight: 51 kg Diet: Clear Liquid Vascular Access:: Ultrasound guided peripheral- verified as acceptable to use by IV team Intake & Output (Last 24Hrs): Intake & Output 04/15/21 04/16/21 04/17/21 04/18/21 06:59 06:59 06:59 06:59 Intake Total 1605 / 1605 2299.5 / 2299.5 2049 / 2049 Output Total 400 / 400 2 / 2 300 / 300 Balance 1205 / 1205 2297.5 / 2297.5 1750 / 1750 Weight 48.8 kg 51 kg Laboratory Data (Last 24 Hrs):: 04/16/21 04/17/21 12:47 04:52 Sodium 144 Potassium 3.9 Chloride 118 H Carbon Dioxide 21 BUN 28 H Creatinine 0.81 Glucose 59 L Calcium 7.0 L Phosphorus 2.1 L 1.9 L Magnesium 1.6 L 1.5 L Total Bilirubin 0.4 AST 60 H ALT 67 Alkaline Phosphatase 91 Albumin 1.3 L Triglycerides 70 Nutrition Assessment:: Please refer to the Notes section of the EMR for the most recent ribbon blocker note. - Assessment Patient with variable PO intake over the past week here with SBO. To start PPN today per hospitalist and surgery. Electrolyte abnormalities were discussed with hospitalist team and no additional replacement was ordered (outside of the contents of the bag). Patient may be a refeeding risk, but has been receiving dextrose consistently;y over the past 24 hours. - Plan For day 1 of PN administration, the following will be ordered: Macronutrients Amino acids 43 grams/day Dextrose 50 grams/day Lipids 50 grams/day Micronutrients Sodium chloride 20 mEq Sodium acetate 40 mEq Potassium phosphate 24 mMol Magnesium sulfate 8 mEq Multivitamins 10 mL Trace Elements 10 mL Total volume 1049 mL to be infused over 24 hrs will provide ~840 kcal/day Final osmolarity 822 mOsm/L (maximum for PPN is 900 mOsm/L) Labs to be ordered per PN order protocol Pharmacy will follow and adjust parenteral nutrition orders on a daily basis. Thank you.
[2021-04-17] MEDS ORDERED: PERIPHERAL TPN IV SCH (16:00)
[2021-04-17] MEDS ORDERED: D5W IV SCH (16:00)
[2021-04-17] MEDS ORDERED: CLINOLIPID 20% IV FAT EMULSION 250 ML IV SCH (16:00)
[2021-04-17] MEDS ORDERED: AMINO ACIDS 4.25% IV SCH (16:00)
--- NOTE | 2021-04-17 16:39 | Billing Data ---
Date of Service April 16, 2021 Coding Level of Care Code 75729 Subseq Hosp Care Lvl 2
--- NOTE | 2021-04-17 16:40 | Billing Data ---
Date of Service April 17, 2021 Coding Level of Care Code 98915 Subseq Hosp Care Lvl 2
[2021-04-17] MEDS ORDERED: STOP CLINOLIPID ONE (22:00)
[2021-04-18 06:23] LABS: BUN Creatinine Ratio 33.8 (10-20); Calcium 7.1 mg/dl (8.5-10.1); Creatinine Clr Calc Pharmacy 51.4 ml/min; Est GFR (African American) 89.9 ml/min; Est GFR (Non-African American) 77.6 ml/min; Magnesium 1.7 mg/dl (1.8-2.4); Phosphorus 2.3 mg/dl (2.5-4.9)
--- NOTE | 2021-04-18 06:55 | Hospitalist Progress Note ---
Date of Service April 18, 2021 Assessment & Plan (1) Partial obstruction of small intestine: Plan: Ashia Ca is a 70 yo female with PMHx of prior SBO s/p ex lap for lysis of adhesions, PE on anticoagulation, mixed connective tissue disorder, and pneumatosis intestinalis who was admitted to [facility] on 04/07/21 with weakness and vomiting, found to have partial SBO on CT. Partial obstruction of small intestine, improved, then worsened Recent admission - had exploratory laparotomy on 01/29/21, with lysis of adhesion. Record review of outpatient gen surg visit 03/15/21 notes that patient was at risk for having additional bowel obstructions due to her extensive jejunal disease. States that "If admitted to the hospital again with similar symptoms would do everything possible apart from surgery including long- term TPN if necessary." Also states that patient "likely would not tolerate a bowel resection of her diseased bowel because of the extent of the disease and risk for short bowel syndrome." CT abdomen and pelvis 04/07/21: evidence of high-grade partial small bowel obstruction. Received Zosyn q8h from 04/08 to 04/10 for empiric coverage; discontinued Zosyn 04/10. Gastroenterology was consulted recommending continuing conservative therapy, Continue PPI and miralax, no role for GI intervention recommending surgical evaluation they have signed off. Repeated KUB 04/15, showing continued small bowel obstructi - General surgery on consult, appreciate commendations. -Per general surgery, NG tube removed 04/11 and diet re-started with CLD. Continue conservative management. -Continue clear liquids for now if patient continues to tolerate advanced to full liquid - Repeated KUB 04/17 showing slightly improved however continued small bowel obstruction - Continue IV protonix 40mg BID - PPN started patient tolerating -If she fails to continue to improve will need to consider TPN Hypotension, MAP to lows of ~60 Responsive to fluid boluses suspect third spacing secondary to severe protein m alnutrition. -Improving sice initiation of PPN -Continue to monitor Dyspnea Differential: hypervolemia, asthma, pneumonia, PE (has hx of, and has new DVT this admission, but currently on therapeutic Lovenox) - 04/15 cxr: Small left pleural effusion with left basilar consolidation, new from 04/08/2021. Suspect atelectasis. - 04/17 CXR demonstrating persistent left sided alveolar opacity and small left pleural effusion characteristic of atelectasis versus pneumonia - Given physical exam findings, worsening subjective dyspnea, and productive c ough with yellow sputum will initiate antibiotic therapy. -Technically patient meets criteria for HCAP -Cefepime 2 g every 12, decreased from every 8 due to creatinine clearance -Added twice daily Nasacort Severe Protein Calorie Malnutrition - Nutrition consulted. -tolerating ppn Scleroderma - continue chronic prednisone 10 PO DVT - TTE as noted above - RLE doppler 04/09: DVT in the common femoral vein with extension to the superficial femoral vein and profunda femoris vein. - INR on admission subtherapeutic at 1.9, warfarin on hold for concern of failure of warfarin therapy but has had fluctuating INR as outpatient. -We will continue the patient on Lovenox as an outpatient and defer tr ansition to warfarin to outpatient physician. - Started Lovenox 40mg SQ BID on 04/11 Hypoglycemia Patient with recurrent hypoglycemia overnight. Responded well to 500cc bolus of D5W NS. - resolved with ppn Electrolyte Abnormalities: hypokalemia, hypomagnesemia, hypophosphatemia - Will continue to monitor electrolytes and replete as indicated. - daily BMP Elevated troponin at admission - Peaked at 0.248 on 04/07. - Most likely due to demand ischemia. Hx of PE - On warfarin at home. Converted to lovenox - Acute DVT as noted above. Currently on BID Lovenox 40 TAB, resolved w/ hydration FENa: NPO Code Status: Full code DVT PPX: Lovenox therapeutic 40 mg SQ BID PT/OT: Consulted, pending placement Case Management: Discharge planning Dispo: Med/surg: upgrading to PCU because of hypotension. (2) Hypoglycemia: (3) Acute hypotension: (4) Hypomagnesemia: (5) Elevated troponin: Admission and Anticipated Discharge Date Admission Date: April 07, 2021 Supervising Physician Co-Signing Physician Notes Patient seen and examined, chart reviewed, case discussed with Dr. Connelly and I agree with the assessment and plan as above except as otherwise noted below. 70-year-old female with a history of prior small bowel obstruction status post ex lap for lysis of adhesions, PE on anticoagulation, mixed connective tissue disorder, and pneumatosis intestinalis admitted to [facility] 04/07/2021 with weakness and vomiting with SBO on CT. Remains hypoalbuminemic, not a good surgical candidate. Continuing to clinically improve today, tolerating diet well with flatus and small BM although small appetite. PPN continued, continue to follow with medical management. No abdominal pain on assessment. Chest rise symmetrical, breathing unlabored, pulse intact regular and slightly tachycardic. Long-term plan depending on clinical course. She is not very hungry, but is tolerating liquids this morning, and is being advanced to full. If doing well continue to advance diet and then perform calorie count. If is able to tolerate close to her metabolic needs on oral diet, can pursue rehab at that point and continue to follow as outpatient. If she regresses, or with advanced diet is u nable to meet her caloric needs, then will pursue port placement for TPN supplementation, which patient has required in the past. PPN continued at this time. Subjective Patient lying in bed this morning in no acute distress. Patient reports doing better overnight, feeling better since initiation of PPN and diet. She denies any chest pressure chest pain, significant shortness of breath. She states she is voiding, having small bowel movements, tolerating diet, and voiding. She was coughing significantly throughout my evaluation of her noting slight worsening of her subjective dyspnea Physical Exam Physical Exam: General: No acute distress HEENT: Cachectic otherwise normocephalic atraumatic Neck: Normal vision inspection Cardiac: Regular rate and rhythm I do not appreciate significant murmurs rubs or gallops, normal S1, normal S2, 1+ pedal edema Respiratory: Left-sided coarse breath sounds with scattered rhonchi, symmetrical chest expansion, no significant respiratory distress, frequent coughing GI: Soft, nontender, nondistended MSK: Moves all extremities although fairly weak Skin: Bruising Neuro: Alert and oriented x4 Psych: Calm and cooperative with interview Results & Data Results & Data ([facility]) Vital Signs (Past 12 Hours) Vital Signs Temp Pulse Resp BP BP Pulse Ox 04/18/21 03:25 36.8 C 97 H 18 117/73 96 04/18/21 00:03 36.7 C 97 H 18 109/67 94 04/17/21 19:45 37.2 C 04/17/21 19:23 37.2 C 101 H 25 H 115/69 95 Laboratory Results 04/18/21 04/18/21 04/18/21 Range/Units 08:50 05:57 05:39 Sodium 142 (136-145) mmol/L Potassium 4.0 (3.5-5.1) mmol/L Chloride 118 H (98-107) mmol/L Carbon Dioxide 19 L (21-32) mmol/L Anion Gap 5.0 (3-11) BUN 26 H (7-18) mg/dl Creatinine 0.78 (0.6-1.2) mg/dl Est Cr Clr Drug Dosing 51.4 ml/min Est GFR ( Amer) 89.9 ml/min Est GFR (Non-Af Amer) 77.6 ml/min BUN/Creatinine Ratio 33.8 H (10-20) Glucose 77 (70-99) mg/dl POC Glucose 70 (70-99) mg/dl Calcium 7.1 L (8.5-10.1) mg/dl Phosphorus 2.3 L (2.5-4.9) mg/dl Magnesium 1.7 L (1.8-2.4) mg/dl Procalcitonin 0.25 (0-0.5) ng/ml Stool Occult Bld Scrn (Negative) 04/18/21 04/17/21 04/17/21 Range/Units 03:29 21:50 20:03 Sodium (136-145) mmol/L Potassium (3.5-5.1) mmol/L Chloride (98-107) mmol/L Carbon Dioxide (21-32) mmol/L Anion Gap (3-11) BUN (7-18) mg/dl Creatinine (0.6-1.2) mg/dl Est Cr Clr Drug Dosing ml/min Est GFR ( Amer) ml/min Est GFR (Non-Af Amer) ml/min BUN/Creatinine Ratio (10-20) Glucose (70-99) mg/dl POC Glucose 71 71 (70-99) mg/dl Calcium (8.5-10.1) mg/dl Phosphorus (2.5-4.9) mg/dl Magnesium (1.8-2.4) mg/dl Procalcitonin (0-0.5) ng/ml Stool Occult Bld Scrn Positive A (Negative) 04/17/21 04/17/21 04/17/21 Range/Units 16:00 14:16 11:17 Sodium (136-145) mmol/L Potassium (3.5-5.1) mmol/L Chloride (98-107) mmol/L Carbon Dioxide (21-32) mmol/L Anion Gap (3-11) BUN (7-18) mg/dl Creatinine (0.6-1.2) mg/dl Est Cr Clr Drug Dosing ml/min Est GFR ( Amer) ml/min Est GFR (Non-Af Amer) ml/min BUN/Creatinine Ratio (10-20) Glucose (70-99) mg/dl POC Glucose 118 H 95 70 (70-99) mg/dl Calcium (8.5-10.1) mg/dl Phosphorus (2.5-4.9) mg/dl Magnesium (1.8-2.4) mg/dl Procalcitonin (0-0.5) ng/ml Stool Occult Bld Scrn (Negative) Medications Administered Current Inpatient Medications Acetaminophen (Acetaminophen 325 Mg Tab) 650 mg PO Q4H PRN PRN Reason: Pain or Fever Stop: 05/08/21 05:51 Dextrose (Dextrose 50% 50 Ml Syringe) 25 - 50 ml IV UD PRN; Protocol PRN Reason: Hypoglycemia Protocol Stop: 05/13/21 19:34 Last Admin: 04/17/21 05:04 Dose: 50 ml Documented by: Enoxaparin Sodium (Enoxaparin Inj 40 Mg/0.4 Ml Syr) 40 mg SQ Q12H FABIAN Stop: 05/11/21 10:29 Last Admin: 04/18/21 10:24 Dose: 40 mg Documented by: Fluticasone/Vilanterol (Fluticasone/Vilanterol 100/25mcg 14 Puffs/Inhaler) 1 puffs INH DAILY FABIAN Stop: 05/08/21 08:59 Last Admin: 04/18/21 10:23 Dose: 1 puffs Documented by: Glucagon (Glucagon For Inj 1 Mg Vial) 1 mg SQ UD PRN; Protocol PRN Reason: Hypoglycemia Protocol Stop: 05/13/21 19:34 Glucose (Glucose 10 Tabs/Tube) 4 - 8 tabs PO UD PRN; Protocol PRN Reason: Hypoglycemia Protocol Stop: 05/13/21 19:34 Glucose (Glucose 40% Gel 15 Gm Tube) 15 - 30 gm PO UD PRN; Protocol PRN Reason: Hypoglycemia Protocol Stop: 05/13/21 19:34 Pantoprazole Sodium 40 mg/ (Syringe) 10 mls @ 5 mls/min IV BID [facility] Stop: 05/08/21 05:44 Last Admin: 04/18/21 10:23 Dose: 5 mls/min Documented by: Prochlorperazine 5 mg/ Syringe 5 mls @ 5 mls/min IV Q6H PRN PRN Reason: Nausea not relieved by Zofran Stop: 05/13/21 21:38 Last Admin: 04/14/21 20:51 Dose: 5 mls/min Documented by: Thiamine HCl 100 mg/ Syringe 10 mls @ 2 mls/min IV QAM [facility] Stop: 05/16/21 13:59 Last Admin: 04/18/21 10:23 Dose: 2 mls/min Documented by: Dextrose (D10w) 1,000 mls @ 0 mls/hr IV .Q0M PRN PRN Reason: protocol (see label comments) Stop: 05/17/21 12:12 Amino Acids 1,049 ml/ (Nutrition (Parenteral)) 1,049 mls @ 43.71 mls/hr IV .Q24H [facility]; Protocol Stop: 04/18/21 15:59 Last Admin: 04/17/21 16:34 Dose: 43.7 mls/hr Documented by: Cefepime HCl 2,000 mg/ Syringe 20 mls @ 5 mls/min IV Q12H [facility] Stop: 04/25/21 09:59 Miscellaneous (Carbohydrates For Hypoglycemia ) 15 - 30 gm PO UD PRN PRN Reason: Hypoglycemia Protocol Stop: 05/13/21 19:34 Miscellaneous Information (Tpn/Ppn Consult Pharmacy) 1 ea N/A UD PRN PRN Reason: Consult Stop: 05/15/21 07:59 Ondansetron HCl (Ondansetron Inj 2 Mg/Ml 2 Ml Vial) 4 mg IV Q4H PRN PRN Reason: Nausea Stop: 05/13/21 21:38 Last Admin: 04/15/21 13:10 Dose: 4 mg Documented by: Polyethylene Glycol (Polyethylene (Miralax) 17 Gm Pack) 17 gm PO DAILY PRN PRN Reason: Constipation Stop: 05/08/21 05:51 Prednisone (Prednisone 10 Mg Tablet) 10 mg PO DAILY [facility] Stop: 05/08/21 08:59 Last Admin: 04/18/21 09:21 Dose: 10 mg Documented by: Tramadol HCl (Tramadol Hcl 50 Mg Tablet) 50 mg PO DAILY PRN PRN Reason: Pain Stop: 05/08/21 05:51 Triamcinolone Acetonide (Triamcinolone Acet Nasal [place] 10.8ml Btl) 2 sprays FAISAL DAILY [facility] Stop: 05/18/21 08:59 Last Admin: 04/18/21 10:27 Dose: Not Given Documented by:
--- NOTE | 2021-04-18 08:44 | Surgery Progress Note ---
Date of Service April 18, 2021 Assessment & Plan (1) Partial obstruction of small intestine: Plan: Patient tolerating small amounts of clears without abdominal complaints. She is having some bowel function She was restarted on PPN yesterday Continue on clears for now per patient request, may try full liquids later if doing okay Consideration to TPN if patient is not able to sustain her nutrition/calories orally No plans for further surgical intervention here. Has follow with [facility] in the past Admission and Anticipated Discharge Date Admission Date: April 07, 2021 Subjective Patient says she is feeling okay. Denies abdominal pain, nausea/vomiting. Reports passing some flatus. Last BM documented early this AM (small). Tolerating small amounts of clears, she is not really hungry for more at this time. Physical Exam Physical Exam: awake/alert Gastrointestinal (Abdomen): Inspection/Auscultation: abdomen not distended Percussion/Palpation: abdomen soft; abdomen nontender Results & Data ([facility]) Vital Signs (Past 12 Hours) Vital Signs Temp Pulse Resp BP BP Pulse Ox 04/18/21 03:25 36.8 C 97 H 18 117/73 96 04/18/21 00:03 36.7 C 97 H 18 109/67 94 PG Care Time/CCT Total # of Minutes Spent Total Time Spent with Patient: Total time spent is greater than 50% in coordination of care (as documented) at patient's floor/unit and/or counseling patient: Coding Level of Care Code 20059 Subseq Hosp Care Lvl 1 Diagnoses Partial obstruction of small intestine K56.600
[2021-04-18] MEDS: predniSONE 10 MG TABLET PO SCH (09:21)
[2021-04-18] MEDS ORDERED: CEFEPIME 2,000 MG in SYRINGE 0 ML IV STA (09:56)
[2021-04-18] MEDS ORDERED: CEFEPIME 2,000 MG in SYRINGE 0 ML IV SCH (10:00)
[2021-04-18] MEDS: FLUTICASONE/VILANTEROL 100/25MCG 14 PUFFS/INHALER INH SCH (10:23)
[2021-04-18] MEDS: THIAMINE HCL 100 MG in SYRINGE 9 ML IV SCH (10:23)
[2021-04-18] MEDS: PANTOprazole 40 MG in SYRINGE 0 ML IV SCH ×2 (10:23→21:31)
[2021-04-18] MEDS: ENOXAPARIN INJ 40 MG/0.4 ML SYR SQ SCH ×2 (10:24→21:31)
[2021-04-18] MEDS: TRIAMCINOLONE ACET NASAL SPRAY 10.8ML BTL NAE SCH (10:27)
--- NOTE | 2021-04-18 10:49 | XRay Report ---
XR chest 1V portable CLINICAL HISTORY: Follow up left pleural effusion and left basilar consolidation. Evaluate for pneum onia. COMPARISON STUDY: 04/15/2021 TECHNIQUE: 1 view of the chest FINDINGS: Single frontal view of the chest demonstrates the cardiomediastinal silhouette to be within normal li mits. Compared to the previous examination, there is again increased density in the retrocardiac spac e and small left pleural effusion with the findings again characteristic of atelectasis/collapse vers us early pneumonia. The remainder the lungs are clear. There is no evidence for pleural effusion. The re is no evidence for vascular congestion. There is no acute osseous pathology. IMPRESSION: Compared to previous examination, there is persistent alveolar opacity in retrocardiac sp shantanu and a small left pleural effusion characteristic of atelectasis/collapse versus early pneumonia. ACT 112: Negative or not required by law. Electronically signed by: Porter Sandy M.D. 04/18/2021 10:47 AM
[2021-04-18] MEDS: CEFEPIME 2,000 MG in SYRINGE 0 ML IV SCH ×2 (11:16→21:31)
[2021-04-18] MEDS ORDERED: CEFEPIME 1,000 MG in SYRINGE 0 ML IV SCH (14:00)
[2021-04-18] MEDS ORDERED: CLINOLIPID 20% IV FAT EMULSION 250 ML IV SCH (16:00)
[2021-04-18] MEDS ORDERED: D5W IV SCH (16:00)
[2021-04-18] MEDS ORDERED: PERIPHERAL TPN IV SCH (16:00)
[2021-04-18] MEDS ORDERED: AMINO ACIDS 4.25% IV SCH (16:00)
--- NOTE | 2021-04-18 16:17 | Billing Data ---
Date of Service April 18, 2021 Coding Level of Care Code 45907 Subseq Hosp Care Lvl 2
[2021-04-18] MEDS ORDERED: STOP CLINOLIPID ONE (22:00)
[2021-04-19] MEDS: CARBOHYDRATES FOR HYPOGLYCEMIA PO PRN (07:30)
[2021-04-19] MEDS: DEXTROSE 50% 50 ML SYRINGE IV PRN (07:51)
[2021-04-19 08:14] LABS: BUN Creatinine Ratio 35.4 (10-20); Calcium 7.4 mg/dl (8.5-10.1); Creatinine Clr Calc Pharmacy 50.1 ml/min; Est GFR (African American) 87.2 ml/min; Est GFR (Non-African American) 75.2 ml/min; Magnesium 1.5 mg/dl (1.8-2.4); Potassium 4.1 mmol/L (3.5-5.1)
--- NOTE | 2021-04-19 08:36 | Hospitalist Progress Note ---
Date of Service April 19, 2021 Assessment & Plan (1) Partial obstruction of small intestine: Plan: Ashia Ca is a 70 yo female with PMHx of prior SBO s/p ex lap for lysis of adhesions, PE on anticoagulation, mixed connective tissue disorder, and pneumatosis intestinalis who was admitted to [facility] on 04/07/21 with weakness and vomiting, found to have partial SBO on CT. Partial obstruction of small intestine, improved, then worsened Recent admission - had exploratory laparotomy on 01/29/21, with lysis of adhesion. Record review of outpatient gen surg visit 03/15/21 notes that patient was at risk for having additional bowel obstructions due to her extensive jejunal disease. States that "If admitted to the hospital again with similar symptoms would do everything possible apart from surgery including long- term TPN if necessary." Also states that patient "likely would not tolerate a bowel resection of her diseased bowel because of the extent of the disease and risk for short bowel syndrome." CT abdomen and pelvis 04/07/21: evidence of high-grade partial small bowel obstruction. Received Zosyn q8h from 04/08 to 04/10 for empiric coverage; discontinued Zosyn 04/10. Gastroenterology was consulted recommending continuing conservative therapy, Continue PPI and miralax, no role for GI intervention recommending surgical evaluation they have signed off. Repeated KUB 04/15, showing continued small bowel obstruction - General surgery on consult, appreciate commendations. -Per general surgery, NG tube removed 04/11 and diet re-started with CLD. Continue conservative management. -Tolerating full liquis - Repeated KUB 04/17 showing slightly improved however continued small bowel obstruction - Continue IV protonix 40mg BID - PPN started patient tolerating - If she fails to continue to improve will need to consider TPN Hypotension, MAP to lows of ~60 Responsive to fluid boluses suspect third spacing secondary to severe protein malnutrition. -Improving sice initiation of PPN -Continue to monitor Dyspnea suspect 2/2 PNA - 04/15 cxr: Small left pleural effusion with left basilar consolidation, new from 04/08/2021. Suspect atelectasis. - 04/17 CXR demonstrating persistent left sided alveolar opacity and small left pleural effusion characteristic of atelectasis versus pneumonia - Given physical exam findings, worsening subjective dyspnea, and productive cough with yellow sputum will initiate antibiotic therapy. -Technically patient meets criteria for HCAP -Cefepime 2 g every 12, decreased from every 8 due to creatinine clearance -Added twice daily Nasacort Severe Protein Calorie Malnutrition - Nutrition consulted. -tolerating ppn Scleroderma - continue chronic prednisone 10 PO DVT - TTE as noted above - RLE doppler 04/09: DVT in the common femoral vein with extension to the superficial femoral vein and profunda femoris vein. - INR on admission subtherapeutic at 1.9, warfarin on hold for concern of failure of warfarin therapy but has had fluctuating INR as outpatient. -We will continue the patient on Lovenox as an outpatient and defer transition to warfarin to outpatient physician. - Started Lovenox 40mg SQ BID on 04/11 Hypoglycemia Patient with recurrent hypoglycemia overnight. Responded well to 500cc bolus of D5W NS. - resolved with ppn Electrolyte Abnormalities: hypokalemia, hypomagnesemia, hypophosphatemia - Will continue to monitor electrolytes and replete as indicated. - daily BMP Elevated troponin at admission - Peaked at 0.248 on 04/07. - Most likely due to demand ischemia. Hx of PE - On warfarin at home. Held - Acute DVT as noted above. Currently on BID Lovenox 40 TAB, resolved w/ hydration FENa: NPO Code Status: Full code DVT PPX: Lovenox therapeutic 40 mg SQ BID PT/OT: Consulted, pending placement Case Management: Discharge planning Dispo:PCU (2) Hypoglycemia: (3) Acute hypotension: (4) Hypomagnesemia: (5) Elevated troponin: Admission and Anticipated Discharge Date Admission Date: April 07, 2021 Supervising Physician Co-Signing Physician Notes Patient seen and examined, chart reviewed, case discussed with Dr. Connelly and I agree with the assessment and plan as above except as otherwise noted below. 70-year-old female with a history of prior small bowel obstruction status post ex lap for lysis of adhesions, PE on anticoagulation, mixed connective tissue disorder, and pneumatosis intestinalis admitted to [facility] 04/07/2021 with weakness and vomiting with SBO on CT. Remains hypoalbuminemic, not a good surgical candidate. Steady clinical improvement improve today, tolerating diet well with flatus and +BM. Pt advanced to full liquid by surger, advance to low fiber tomorrow if well and + calorie count. If able to meet metabolic needs then will be stable for progression to rehab. If unable to meet needs will pursue PICC placement for TPN. PPN continued at this time. No abdominal pain on assessment. Chest rise symmetrical, breathing unlabored, pulse intact regular and slightly tachycardic. Subjective Patient doing well this morning, sitting in bed in no acute distress. She notes that she still feels continued weakness which been ongoing for the last few days. She denies any recent chest pressure or chest pain, still noting dyspnea and frequent coughing with productive yellow sputum. She states she has been tolerating her diet, Physical Exam Physical Exam: General: No acute distress HEENT: Cachectic otherwise normocephalic atraumatic Neck: Normal vision inspection Cardiac: Regular rate and rhythm I do not appreciate significant murmurs rubs or gallops, normal S1, normal S2, 1+ pedal edema Respiratory: Left-sided coarse breath sounds with scattered rhonchi, symmetrical chest expansion, no significant respiratory distress, frequent coughing GI: Soft, nontender, nondistended MSK: Moves all extremities although fairly weak Skin: Bruising Neuro: Alert and oriented x4 Psych: Calm and cooperative with interview Results & Data Results & Data ([facility]) Vital Signs (Past 12 Hours) Vital Signs Temp Pulse Pulse Resp BP Pulse Ox 04/19/21 03:00 36.6 C 102 H 117/76 94 04/18/21 23:59 112 H 04/18/21 23:21 36.8 C 99 H 24 98/60 L 92
--- NOTE | 2021-04-19 08:49 | Surgery Progress Note ---
Date of Service April 19, 2021 Assessment & Plan (1) Partial obstruction of small intestine: Plan: Patient voices no abdominal complaints. No nausea/vomiting/pain. Per pt she is having + bowel function Can advance to full liquids, if does okay with this may continue to advance as tolerates. Add Boost with meals Continue on supplemental nutrition (ppn) until patient is able to sustain her calories/nutrition orally. Consideration to TPN if unable to do so No further plans for surgery at our facility on this pt. She has followed with Rupa Jones in the past with GI/surgery We will follow peripherally, please call with any questions/concerns Admission and Anticipated Discharge Date Admission Date: April 07, 2021 Subjective Patient voices no abdominal complaints. Denies pain,nausea/vomiting. Reports to me that she is passing flatus and BM's, but do not see this documented in chart. She is on the bed tolentino currently and wants off. Also low sugars this AM. Physical Exam Physical Exam: awake/alert, lying in bed on bedpan Gastrointestinal (Abdomen): Inspection/Auscultation: abdomen not distended Percussion/Palpation: abdomen nontender and + abdomen not soft Results & Data ([facility]) Vital Signs (Past 12 Hours) Vital Signs Temp Pulse Pulse Resp BP Pulse Ox 04/19/21 03:00 36.6 C 102 H 117/76 94 04/18/21 23:59 112 H 04/18/21 23:21 36.8 C 99 H 24 98/60 L 92 PG Care Time/CCT Total # of Minutes Spent Total Time Spent with Patient: Total time spent is greater than 50% in coordination of care (as documented) at patient's floor/unit and/or counseling patient: Coding Level of Care Code 47476 Subseq Hosp Care Lvl 1 Diagnoses Partial obstruction of small intestine K56.600
[2021-04-19 08:51] LABS: Phosphorus 2.9 mg/dl (2.5-4.9)
[2021-04-19] MEDS: predniSONE 10 MG TABLET PO SCH (09:52)
[2021-04-19] MEDS: TRIAMCINOLONE ACET NASAL SPRAY 10.8ML BTL NAE SCH (09:52)
[2021-04-19] MEDS: CEFEPIME 2,000 MG in SYRINGE 0 ML IV SCH ×2 (09:52→19:55)
[2021-04-19] MEDS: PANTOprazole 40 MG in SYRINGE 0 ML IV SCH ×2 (09:53→19:55)
[2021-04-19] MEDS: ENOXAPARIN INJ 40 MG/0.4 ML SYR SQ SCH ×2 (09:53→19:56)
[2021-04-19] MEDS: THIAMINE HCL 100 MG in SYRINGE 9 ML IV SCH (09:53)
[2021-04-19] MEDS: MAGNESIUM SULFATE / D5W 1 GM/100 ML BAG IV SCH ×4 (11:31→17:15)
[2021-04-19] MEDS: FLUTICASONE/VILANTEROL 100/25MCG 14 PUFFS/INHALER INH SCH (11:31)
--- NOTE | 2021-04-19 12:18 | XRay Report ---
KUB HISTORY: Acute abdominal pain sbo? COMPARISON: KUB 04/17/2021 FINDINGS: Small left pleural effusion with left lung base opacities. Surgical suture material project s over the right midabdomen. There is a paucity of gas throughout the bowel. There are a few prominen t air-filled loops of small bowel within the central abdomen measuring up to 2.8 cm, improved from pr ior. Cholecystectomy. No renal calculi. No ureteral calculi. No pneumoperitoneum or pneumatosis. Deg enerative changes of the spine, pelvis and hips. No fracture. IMPRESSION: 1. Mildly prominent nondilated air-filled loops of small bowel within the central abdomen have improv ed from prior. Follow-up recommended. 2. Small left pleural effusion with left basilar consolidation. ACT 112: Negative or not required by law. The above report was generated using voice recognition software. It may contain grammatical, syntax o r spelling errors. Electronically signed by: Berry Pollock M.D. 04/19/2021 12:16 PM
[2021-04-19] MEDS ORDERED: PERIPHERAL TPN IV SCH (16:00)
[2021-04-19] MEDS ORDERED: CLINOLIPID 20% IV FAT EMULSION 250 ML IV SCH (16:00)
[2021-04-19] MEDS ORDERED: AMINO ACIDS 4.25% IV SCH (16:00)
[2021-04-19] MEDS ORDERED: D5W IV SCH (16:00)
[2021-04-19] MEDS ORDERED: SODIUM CHLORIDE 0.9% 1000ML 250 ML IV ONE (17:15)
--- NOTE | 2021-04-19 17:18 | Billing Data ---
Date of Service April 19, 2021 Coding Level of Care Code 68518 Subseq Hosp Care Lvl 2
[2021-04-19] MEDS ORDERED: STOP CLINOLIPID ONE (22:00)
[2021-04-19] MEDS ORDERED: D5W AND NSS 1,000 ML IV SCH (23:45)
--- NOTE | 2021-04-20 06:21 | XRay Report ---
XR chest 1V portable CLINICAL HISTORY: dyspnea COMPARISON STUDY: Chest radiograph April 18, 2021. FINDINGS: Small left pleural effusion is unchanged. There is no pneumothorax. Persistent dense left b asilar opacity is noted with volume loss. There is no evidence for pulmonary edema. Cardiomediastinal silhouette is stable. There may be minimal right midlung opacity. Calcified granuloma within the rig ht lower lobe is incidentally noted. IMPRESSION: No significant change in a small left pleural effusion with dense left basilar opacity a nd volume loss. This opacity may reflect the left lower lobe collapse or pneumonia. Radiographic foll ow-up to ensure resolution is recommended. ACT 112: Negative or not required by law. Electronically signed by: Edson Barreto M.D. 04/20/2021 6:19 AM
[2021-04-20] MEDS: predniSONE 10 MG TABLET PO SCH (09:10)
[2021-04-20] MEDS: FLUTICASONE/VILANTEROL 100/25MCG 14 PUFFS/INHALER INH SCH (09:10)
[2021-04-20] MEDS: THIAMINE HCL 100 MG in SYRINGE 9 ML IV SCH (09:11)
[2021-04-20] MEDS: CEFEPIME 2,000 MG in SYRINGE 0 ML IV SCH ×2 (09:11→21:36)
[2021-04-20] MEDS: PANTOprazole 40 MG in SYRINGE 0 ML IV SCH ×2 (09:11→21:36)
[2021-04-20] MEDS: TRIAMCINOLONE ACET NASAL SPRAY 10.8ML BTL NAE SCH (09:11)
[2021-04-20] MEDS: ENOXAPARIN INJ 40 MG/0.4 ML SYR SQ SCH ×2 (09:12→21:36)
[2021-04-20 11:52] LABS: BUN Creatinine Ratio 36.2 (10-20); Creatinine Clr Calc Pharmacy 51.4 ml/min; Est GFR (African American) 89.9 ml/min; Est GFR (Non-African American) 77.6 ml/min; Magnesium 2.4 mg/dl (1.8-2.4); Phosphorus 2.3 mg/dl (2.5-4.9); Potassium 3.4 mmol/L (3.5-5.1)
[2021-04-20 13:25] LABS: Hematocrit (blood only) 31.6 % (37-47); Hemoglobin 10.2 g/dL (12.0-16.0); Immature Granulocytes # (auto) 0.01 K/uL (0.00-0.02); Immature Granulocytes % (auto) 0.2 %; Lymphocytes % (auto) 11.5 %; Mean Corpuscular Hemoglobin 30.4 pg (25-34); Mean Corpuscular Hgb Conc 32.3 g/dL (32-36); Mean Platelet Volume 11.4 fL (7.4-10.4); Monocytes # (auto) 0.48 K/uL (0.11-0.59); Monocytes % (auto) 7.9 %; Neutrophils # (auto) 4.91 K/uL (1.4-6.5); Neutrophils % (auto) 80.4 %; Platelet Count 119 K/uL (130-400); RDW Coefficient of Variation 15.4 % (11.5-14.5); RDW Standard Deviation 53.3 fL (36.4-46.3); Red Blood Count 3.36 M/uL (4.2-5.4)
[2021-04-20] MEDS: POTASSIUM CHLORIDE / WTR 10 MEQ/100 ML PLCT IV SCH ×3 (14:09→16:31)
[2021-04-20] MEDS ORDERED: AMINO ACIDS 4.25% IV SCH (16:00)
[2021-04-20] MEDS ORDERED: PERIPHERAL TPN IV SCH (16:00)
[2021-04-20] MEDS ORDERED: CLINOLIPID 20% IV FAT EMULSION 250 ML IV SCH (16:00)
[2021-04-20] MEDS ORDERED: D5W IV SCH (16:00)
--- NOTE | 2021-04-20 17:54 | Hospitalist Progress Note ---
Date of Service April 20, 2021 Assessment & Plan (1) Partial obstruction of small intestine: Plan: Ashia Ca is a 70 yo female with PMHx of prior SBO s/p ex lap for lysis of adhesions, PE on anticoagulation, mixed connective tissue disorder, and pneumatosis intestinalis who was admitted to [facility] on 04/07/21 with weakness and vomiting, found to have partial SBO on CT. Partial obstruction of small intestine, improved, then worsened Recent admission - had exploratory laparotomy on 01/29/21, with lysis of adhesion. Record review of outpatient gen surg visit 03/15/21 notes that patient was at risk for having additional bowel obstructions due to her extensive jejunal disease. States that "If admitted to the hospital again with similar symptoms would do everything possible apart from surgery including long- term TPN if necessary." Also states that patient "likely would not tolerate a bowel resection of her diseased bowel because of the extent of the disease and risk for short bowel syndrome." CT abdomen and pelvis 04/07/21: evidence of high-grade partial small bowel obstruction. Received Zosyn q8h from 04/08 to 04/10 for empiric coverage; discontinued Zosyn 04/10. Gastroenterology was consulted recommending continuing conservative therapy, Continue PPI and miralax, no role for GI intervention recommending surgical evaluation they have signed off. Repeated KUB 04/15, showing continued small bowel obstruction - Continue IV protonix 40mg BID - Patient tolerating PPN - Tolerating low fiber diet - If she fails to continue to improve will need to consider TPN Hypotension, MAP to lows of ~60 Responsive to fluid boluses suspect third spacing secondary to severe protein malnutrition. -Improving sice initiation of PPN -Continue to monitor Dyspnea suspect 2/2 PNA - 04/15 cxr: Small left pleural effusion with left basilar consolidation, new from 04/08/2021. Suspect atelectasis. - 04/17 CXR demonstrating persistent left sided alveolar opacity and small left pleural effusion characteristic of atelectasis versus pneumonia - Given physical exam findings, worsening subjective dyspnea, and productive cough with yellow sputum will initiate antibiotic therapy. -Technically patient meets criteria for HCAP -Cefepime 2 g every 12, decreased from every 8 due to creatinine clearance -Added twice daily Nasacort - 04/20 reports subjective improvement, improving lung exam, less coughing Severe Protein Calorie Malnutrition - Nutrition consulted. -tolerating ppn Scleroderma - continue chronic prednisone 10 PO DVT - TTE as noted above - RLE doppler 04/09: DVT in the common femoral vein with extension to the superficial femoral vein and profunda femoris vein. - INR on admission subtherapeutic at 1.9, warfarin on hold for concern of failure of warfarin therapy but has had fluctuating INR as outpatient. -We will continue the patient on Lovenox as an outpatient and defer transition to warfarin to outpatient physician. - Started Lovenox 40mg SQ BID on 04/11 Hypoglycemia Patient with recurrent hypoglycemia overnight. Responded well to 500cc bolus of D5W NS. - resolved with ppn Electrolyte Abnormalities: hypokalemia, hypomagnesemia, hypophosphatemia - Will continue to monitor electrolytes and replete as indicated. - daily BMP Elevated troponin at admission - Peaked at 0.248 on 04/07. - Most likely due to demand ischemia. Hx of PE - On warfarin at home. Held - Acute DVT as noted above. Currently on BID Lovenox 40 TAB, resolved w/ hydration FENa: NPO Code Status: Full code DVT PPX: Lovenox therapeutic 40 mg SQ BID PT/OT: Consulted, pending placement Case Management: Discharge planning Dispo:PCU (2) Hypoglycemia: (3) Acute hypotension: (4) Hypomagnesemia: (5) Elevated troponin: Admission and Anticipated Discharge Date Admission Date: April 07, 2021 Supervising Physician Co-Signing Physician Notes Patient seen and examined, chart reviewed, case discussed with Dr. Connelly and I agree with the assessment and plan as above except as otherwise noted below. 70-year-old female with a history of prior small bowel obstruction status post ex lap for lysis of adhesions, PE on anticoagulation, mixed connective tissue disorder, and pneumatosis intestinalis admitted to [facility] 04/07/2021 with weakness and vomiting with SBO on CT. Remains hypoalbuminemic, not a good surgical candidate. Patient will advance to low fiber diet with improving appetite and continued bowel function today. She reports that she feels that she can eat well if the food is good, but gets full quickly. No chest pain, chest pressure, shortness of breath, difficulty breathing at bedside assessment. Continues to have cough. Leftlower lobe diminished air movement. Regular rhythm with slight tachycardia. Thin, frail. No abdominal pain on assessment today. Nutrition: By HB calculation (54 kg, 1 inches, 70-year-old female) basal metabolic rate 1/1-8.2 kcal per day, total energy expenditure estimated 1,300- 1,500kcal/day. Calorie count pending tomorrow, if inadequate place PICC and discharge with supplemental TPN. Anticipate rehab, PT/OT and placement in progress Left lower lobe pneumonia: Chest x-ray with new dense left lobar opacity. On cefepime for potential HAP. repeat x-ray in 24-48 hours to follow. Continue incentive spirometry. Fusion present but patient severely malnourished with low albumin and clinically intravascularly depleted. Subjective Patient resting comfortably in bed this morning no acute distress. Patient reports return of her bowel function, voiding on her own, and that she is hungry. Overnight her amino acid infusion was stopped. She reports she would like to try a low fiber diet. She reports her dyspnea has been improving and she is feeling better. Physical Exam Physical Exam: General: No acute distress HEENT: Cachectic otherwise normocephalic atraumatic Neck: Normal vision inspection Cardiac: Regular rate and rhythm I do not appreciate significant murmurs rubs or gallops, normal S1, normal S2, 1+ pedal edema Respiratory: Left-sided scattered rhonchi, symmetrical chest expansion, no significant respiratory distress, GI: Soft, nontender, nondistended MSK: Moves all extremities although fairly weak Skin: Bruising Neuro: Alert and oriented x4 Psych: Calm and cooperative with interview Results & Data Results & Data ([facility]) Vital Signs (Past 12 Hours) Vital Signs Temp Pulse Pulse Pulse Resp BP BP 04/20/21 15:00 36.5 C 98 H 18 103/72 04/20/21 14:54 90 04/20/21 11:55 36.7 C 99 H 18 100/66 04/20/21 08:00 36.4 C L 92 H 18 94/60 L 04/20/21 07:33 94 H Pulse Ox 04/20/21 15:00 95 04/20/21 14:54 04/20/21 11:55 97 04/20/21 08:00 94 04/20/21 07:33 Laboratory Results 04/20/21 04/20/21 04/20/21 Range/Units 13:17 12:03 10:52 WBC 6.10 (4.8-10.8) K/uL RBC 3.36 L (4.2-5.4) M/uL Hgb 10.2 L (12.0-16.0) g/dL Hct 31.6 L (37-47) % MCV 94.0 (80-100) fL MCH 30.4 (25-34) pg MCHC 32.3 (32-36) g/dL RDW Std Deviation 53.3 H (36.4-46.3) fL RDW Coeff of Bo 15.4 H (11.5-14.5) % Plt Count 119 L (130-400) K/uL MPV 11.4 H (7.4-10.4) fL Immature Gran % (Auto) 0.2 % Neut % (Auto) 80.4 % Lymph % (Auto) 11.5 % [place] % (Auto) 7.9 % Eos % (Auto) 0.0 % Baso % (Auto) 0.0 % Neut # (Auto) 4.91 (1.4-6.5) K/uL Lymph # (Auto) 0.70 L (1.2-3.4) K/uL [place] # (Auto) 0.48 (0.11-0.59) K/uL Eos # (Auto) 0.00 (0-0.5) K/uL Baso # (Auto) 0.00 (0-0.2) K/uL Immature Gran # (Auto) 0.01 (0.00-0.02) K/uL Sodium 142 (136-145) mmol/L Potassium 3.4 L D (3.5-5.1) mmol/L Chloride 116 H (98-107) mmol/L Carbon Dioxide 19 L (21-32) mmol/L Anion Gap 7.0 (3-11) BUN 28 H (7-18) mg/dl Creatinine 0.78 (0.6-1.2) mg/dl Est Cr Clr Drug Dosing 51.4 ml/min Est GFR ( Amer) 89.9 ml/min Est GFR (Non-Af Amer) 77.6 ml/min BUN/Creatinine Ratio 36.2 H (10-20) Glucose 82 (70-99) mg/dl POC Glucose 111 H (70-99) mg/dl Calcium 7.0 L (8.5-10.1) mg/dl Phosphorus 2.3 L (2.5-4.9) mg/dl Magnesium 2.4 (1.8-2.4) mg/dl 04/20/21 04/20/21 04/19/21 Range/Units 08:57 06:02 23:57 WBC (4.8-10.8) K/uL RBC (4.2-5.4) M/uL Hgb (12.0-16.0) g/dL Hct (37-47) % MCV (80-100) fL MCH (25-34) pg MCHC (32-36) g/dL RDW Std Deviation (36.4-46.3) fL RDW Coeff of Bo (11.5-14.5) % Plt Count (130-400) K/uL MPV (7.4-10.4) fL Immature Gran % (Auto) % Neut % (Auto) % Lymph % (Auto) % [place] % (Auto) % Eos % (Auto) % Baso % (Auto) % Neut # (Auto) (1.4-6.5) K/uL Lymph # (Auto) (1.2-3.4) K/uL [place] # (Auto) (0.11-0.59) K/uL Eos # (Auto) (0-0.5) K/uL Baso # (Auto) (0-0.2) K/uL Immature Gran # (Auto) (0.00-0.02) K/uL Sodium (136-145) mmol/L Potassium (3.5-5.1) mmol/L Chloride (98-107) mmol/L Carbon Dioxide (21-32) mmol/L Anion Gap (3-11) BUN (7-18) mg/dl Creatinine (0.6-1.2) mg/dl Est Cr Clr Drug Dosing ml/min Est GFR ( Amer) ml/min Est GFR (Non-Af Amer) ml/min BUN/Creatinine Ratio (10-20) Glucose (70-99) mg/dl POC Glucose 84 74 84 (70-99) mg/dl Calcium (8.5-10.1) mg/dl Phosphorus (2.5-4.9) mg/dl Magnesium (1.8-2.4) mg/dl Medications Administered Current Inpatient Medications Acetaminophen (Acetaminophen 325 Mg Tab) 650 mg PO Q4H PRN PRN Reason: Pain or Fever Stop: 05/08/21 05:51 Dextrose (Dextrose 50% 50 Ml Syringe) 25 - 50 ml IV UD PRN; Protocol PRN Reason: Hypoglycemia Protocol Stop: 05/13/21 19:34 Last Admin: 04/19/21 07:51 Dose: 25 ml Documented by: Enoxaparin Sodium (Enoxaparin Inj 40 Mg/0.4 Ml Syr) 40 mg SQ Q12H [facility] Stop: 05/11/21 10:29 Last Admin: 04/20/21 09:12 Dose: 40 mg Documented by: Fluticasone/Vilanterol (Fluticasone/Vilanterol 100/25mcg 14 Puffs/Inhaler) 1 puffs INH DAILY [facility] Stop: 05/08/21 08:59 Last Admin: 04/20/21 09:10 Dose: 1 puffs Documented by: Glucagon (Glucagon For Inj 1 Mg Vial) 1 mg SQ UD PRN; Protocol PRN Reason: Hypoglycemia Protocol Stop: 05/13/21 19:34 Glucose (Glucose 10 Tabs/Tube) 4 - 8 tabs PO UD PRN; Protocol PRN Reason: Hypoglycemia Protocol Stop: 05/13/21 19:34 Glucose (Glucose 40% Gel 15 Gm Tube) 15 - 30 gm PO UD PRN; Protocol PRN Reason: Hypoglycemia Protocol Stop: 05/13/21 19:34 Pantoprazole Sodium 40 mg/ (Syringe) 10 mls @ 5 mls/min IV BID [facility] Stop: 05/08/21 05:44 Last Admin: 04/20/21 09:11 Dose: 5 mls/min Documented by: Prochlorperazine 5 mg/ Syringe 5 mls @ 5 mls/min IV Q6H PRN PRN Reason: Nausea not relieved by Zofran Stop: 05/13/21 21:38 Last Admin: 04/14/21 20:51 Dose: 5 mls/min Documented by: Thiamine HCl 100 mg/ Syringe 10 mls @ 2 mls/min IV QAM [facility] Stop: 05/16/21 13:59 Last Admin: 04/20/21 09:11 Dose: 2 mls/min Documented by: Dextrose (D10w) 1,000 mls @ 0 mls/hr IV .Q0M PRN PRN Reason: protocol (see label comments) Stop: 05/17/21 12:12 Cefepime HCl 2,000 mg/ Syringe 20 mls @ 5 mls/min IV Q12H [facility] Stop: 04/25/21 09:59 Last Admin: 04/20/21 09:11 Dose: 5 mls/min Documented by: Amino Acids 1,000 ml/ (Nutrition (Parenteral)) 1,060 mls @ 44 mls/hr IV .Q24H [facility]; Protocol Stop: 04/21/21 15:59 Fat Emulsion-[place] Oil/Soybean Oil (Clinolipid 20% Iv Fat Emulsion) 250 mls @ 41.667 mls/hr IV .Q6H [facility] Stop: 04/20/21 21:59 Miscellaneous (Carbohydrates For Hypoglycemia ) 15 - 30 gm PO UD PRN PRN Reason: Hypoglycemia Protocol Stop: 05/13/21 19:34 Last Admin: 04/19/21 07:30 Dose: 15 gm Documented by: Miscellaneous (Stop Clinolipid) 1 ea N/A TODAY@2200 ONE Stop: 04/20/21 22:01 Miscellaneous Information (Tpn/Ppn Consult Pharmacy) 1 ea N/A UD PRN PRN Reason: Consult Stop: 05/15/21 07:59 Ondansetron HCl (Ondansetron Inj 2 Mg/Ml 2 Ml Vial) 4 mg IV Q4H PRN PRN Reason: Nausea Stop: 05/13/21 21:38 Last Admin: 04/15/21 13:10 Dose: 4 mg Documented by: Polyethylene Glycol (Polyethylene (Miralax) 17 Gm Pack) 17 gm PO DAILY PRN PRN Reason: Constipation Stop: 05/08/21 05:51 Prednisone (Prednisone 10 Mg Tablet) 10 mg PO DAILY [facility] Stop: 05/08/21 08:59 Last Admin: 04/20/21 09:10 Dose: 10 mg Documented by: Tramadol HCl (Tramadol Hcl 50 Mg Tablet) 50 mg PO DAILY PRN PRN Reason: Pain Stop: 05/08/21 05:51 Triamcinolone Acetonide (Triamcinolone Acet Nasal [place] 10.8ml Btl) 2 sprays FAISAL DAILY [facility] Stop: 05/18/21 08:59 Last Admin: 04/20/21 09:11 Dose: 2 sprays Documented by:
[2021-04-20] MEDS: CARBOHYDRATES FOR HYPOGLYCEMIA PO PRN (18:06)
--- NOTE | 2021-04-20 18:22 | Billing Data ---
Date of Service April 20, 2021 Coding Level of Care Code 91888 Subseq Hosp Care Lvl 2
[2021-04-20] MEDS ORDERED: STOP CLINOLIPID ONE (22:00)
[2021-04-21] MEDS: CARBOHYDRATES FOR HYPOGLYCEMIA PO PRN ×3 (05:57→11:58)
--- NOTE | 2021-04-21 06:14 | Hospitalist Progress Note ---
Date of Service April 21, 2021 Assessment & Plan (1) Partial obstruction of small intestine: Plan: Ashia Ca is a 70 yo female with PMHx of prior SBO s/p ex lap for lysis of adhesions, PE on anticoagulation, mixed connective tissue disorder, and pneumatosis intestinalis who was admitted to [facility] on 04/07/21 with weakness and vomiting, found to have partial SBO on CT. Partial obstruction of small intestine, improved, then worsened Recent admission - had exploratory laparotomy on 01/29/21, with lysis of adhesion. Record review of outpatient gen surg visit 03/15/21 notes that patient was at risk for having additional bowel obstructions due to her extensive jejunal disease. States that "If admitted to the hospital again with similar symptoms would do everything possible apart from surgery including long- term TPN if necessary." Also states that patient "likely would not tolerate a bowel resection of her diseased bowel because of the extent of the disease and risk for short bowel syndrome." CT abdomen and pelvis 04/07/21: evidence of high-grade partial small bowel obstruction. Received Zosyn q8h from 04/08 to 04/10 for empiric coverage; discontinued Zosyn 04/10. Repeated KUB 04/15, showing continued small bowel obstruction. TDEE is [id number] kcal/day - Gastroenterology consulted: poor surgical candidate; continue conservative therapy, PPI, MiraLax. Signed off. - Tolerating diet (low fiber) well - Continue PPN with supplemental feeds - PPN ongoing with supplemental feeds - Nutrition following: appreciate insight, recommendations - If unable to meet calorie goals, proceed with PICC placement and temporary TPN with close GI/nutrition follow-up as outpatient until PO calorie goal achieved, thereafter discontinue. COVID-19 -- in setting of dyspnea, cough - Clinically reporting dyspnea and cough beginning on 04/19 - Interval development of L-sided opacities throughout admission on CXR; when correlated with symptoms (dyspnea/productive cough), concerning for possible PNA - Labs today revealing of thrombocytopenia / leukophia with lymphopenia -- procal negative - COVID-19 RT-PCR test returned positive 04/21 - Respiratory status stable. No O2 requirement. Monitor. - Given positive COVID-19 result and negative procalcitonin, opt to discontinue antimicrobial therapy - Transfer to [facility] floor Previous HoTN Likely multifactorial. Possibly secondary to third spacing secondary from severe protein malnutrition, as it is fluid-responsive, but also concern for ?developing adrenal insufficiency in setting of chronic prednisone use -Stable. Improving since initiation of PPN and increased PO intake overall -Increase prednisone, as below -Improving since initiation of PPN and increased PO intake -Continue to monitor Intermittent Hypoglycemia -- with asymptomatic low reported at 29 mg/dL on 04/21 - Patient with recurrent hypoglycemia throughout 04/20-04/21, and again (down to 29) on 04/21 - Responded well to 500cc bolus of D5W NS x 2 - Occurring despite increasing PO intake and PPN - no clear association pre-/post-prandially - Concern this may represent developing adrenal insufficiency in setting of COVID-19 - No h/o DM. No insulin orders. - Monitor BSGs q6h Possible Developing Adrenal Insufficiency - Patient chronically on prednisone 10mg daily in setting of scleroderma - With recent COVID-19 diagnosis (04/21) and approx. 2 days of softer BPs and intermittent episodes of hypoglycemia (04/19-04/21), concern there may be developing insufficiency - Random, AM cortisols cannot be run until Friday due to lab maintenance - Treat empirically by bumping home prednisone dose to 40mg x 3 days --> 30 mg x 3 days --> 20mg x 3 days --> home dose (10mg daily) - If worsening symptoms, would opt for IV hydrocortisone - Send random cortisol now to be run Friday AM - Monitor lytes Severe Protein Calorie Malnutrition - Nutrition consulted. PPN ongoing with supplemental diet, as above. Scleroderma - Continue home prednisone 10mg daily - No acute needs DVT -- despite chronic anticoagulation for previous PE, subtherapeutic (1.9) on admission - RLE Doppler (04/09): DVT in common femoral with extension to superficial nidhi ous system - Subtherapeutic INR on admission. Hold home warfarin given this and outpatient fluctuations - Initiate Lovenox 40mg b.i.d. --> opt to continue this at discharge and consider transition back to oral agent as outpatient Electrolyte Abnormalities: hypokalemia, hypomagnesemia, hypophosphatemia - Suspect secondary to profound protein calorie malnutrition - Will continue to monitor electrolytes and replete as indicated. Elevated Troponin -- noted on admission - Peaked at 0.248 on 04/07, asymptomatic through that time - TTE without evidence of RMWAs - Likely secondary to demand ischemia - ECG w/ CP p.r.n. History of PE / On Chronic Anticoagulation - See DVT above. Transition from Warfarin -> Lovenox. TAB -- noted earlier during admission. Resolved with rehydration. Diet: Low-fiber diet. Supplemental PPN. Nutrition aiding. See above. Code Status: Full code DVT PPX: Lovenox therapeutic 40 mg SQ BID PT/OT: Consulted, pending placement Case Management: Discharge planning Dispo:PCU --> MS/T (2) Hypoglycemia: (3) Acute hypotension: (4) Hypomagnesemia: (5) Elevated troponin: Admission and Anticipated Discharge Date Admission Date: April 07, 2021 Supervising Physician Co-Signing Physician Notes Patient seen and examined, chart reviewed, case discussed with Dr. Felix and I agree with the assessment and plan as above except as otherwise noted below. 70-year-old female with a history of prior small bowel obstruction status post ex lap for lysis of adhesions, PE on anticoagulation, mixed connective tissue disorder, and pneumatosis intestinalis admitted to [facility] 04/07/2021 with weakness and vomiting with SBO on CT. Remains hypoalbuminemic, not a good surgical candidate. Patient will advance to low fiber diet with improving appetite and continued bowel function today. She reports that she feels that she can eat well if the food is good, but gets full quickly. No chest pain, chest pressure, shortness of breath, difficulty breathing at bedside assessment. Continues to have cough. Leftlower lobe diminished air movement. Regular rhythm with slight tachycardia. Thin, frail. No abdominal pain on assessment today. Nutrition: By HB calculation (54 kg, 1 inches, 70-year-old female) basal metabolic rate 1/-8.2 kcal per day, total energy expenditure estimated 1,300- 1,500kcal/day. Will add boost supplementation Calorie count pending, if inadequate place PICC and discharge with supplemental TPN. Anticipate rehab, PT/OT and placement in progress Left lower lobe pneumonia: Chest x-ray with new dense left lobar opacity. On cefepime for potential HAP. repeat x-ray in 24-48 hours to follow. Continue incentive spirometry. Fusion present but patient severely malnourished with low albumin and clinically intravascularly depleted. COVID 19: Patient tested positive for COVID 19. Moved to COVID unit. Unsure when exactly patient may have contracted COVID: visitors?, false negati ve? will discuss with infectious control Subjective NAEO. Cough continues, maybe a little worse today. Feeling lousy. No CP, palpitations, SOB. Not coughing up green mucus anymore but definitely feeling junky. Appetite still poor. No n/v/d. Review of Systems Review of Systems: as per HPI Physical Exam Physical Exam: General: Tired, but otherwise well-appearing, 70yoF in NAD. HEENT: NCAT. Eyes - Sclera are white, anicteric, and without injection. PERRL. Cardiac: Normal rate and regular rhythm; S1 and S2 present with no murmurs, rubs, or gallops. Pulmonary: Good respiratory effort with symmetric expansion of the chest. Occasional cough. No use of accessory muscles. Lungs demonstrated bilateral rhonchi, primarily in the upper lung allen, more appreciable L > R Abdominal: Normoactive bowel sounds. Abdomen was soft, nondistended, and non- tender to palpation. Extremities: Upper and lower extremities are warm and well perfused. Radial and dorsalis pedis pulses were 2+ b/l. Results & Data Results & Data ([facility]) Vital Signs (Past 12 Hours) Vital Signs Temp Pulse Pulse Resp BP BP Pulse Ox 04/21/21 03:00 36.7 C 86 24 102/71 92 04/20/21 23:22 36.3 C L 92 H 20 98/64 L 95 04/20/21 23:19 87 04/20/21 19:39 36.7 C 86 22 103/71 95 Resident Activity Tracking Resident Involvement: Resident Care Provided Care Provided: Adult Hospital Medicine
[2021-04-21 06:50] LABS: BUN Creatinine Ratio 36.9 (10-20); Creatinine Clr Calc Pharmacy 61.6 ml/min; Est GFR (Non-African American) 85.4 ml/min; Magnesium 2.2 mg/dl (1.8-2.4); Phosphorus 2.6 mg/dl (2.5-4.9); Potassium 4.1 mmol/L (3.5-5.1)
[2021-04-21 07:03] LABS: Eosinophils # (auto) 0.02 K/uL (0-0.5); Eosinophils % (auto) 0.4 %; Hematocrit (blood only) 30.1 % (37-47); Hemoglobin 9.9 g/dL (12.0-16.0); Immature Granulocytes # (auto) 0.01 K/uL (0.00-0.02); Immature Granulocytes % (auto) 0.2 %; Lymphocytes # (auto) 1.15 K/uL (1.2-3.4); Lymphocytes % (auto) 24.6 %; Mean Corpuscular Hemoglobin 30.7 pg (25-34); Mean Corpuscular Hgb Conc 32.9 g/dL (32-36); Mean Corpuscular Volume 93.5 fL (80-100); Mean Platelet Volume 11.9 fL (7.4-10.4); Monocytes % (auto) 6.4 %; Neutrophils % (auto) 68.4 %; Platelet Count 101 K/uL (130-400); RDW Coefficient of Variation 15.6 % (11.5-14.5); Red Blood Count 3.22 M/uL (4.2-5.4); White Blood Count 4.68 K/uL (4.8-10.8)
[2021-04-21] MEDS: predniSONE 10 MG TABLET PO SCH (08:42)
[2021-04-21] MEDS: PANTOprazole 40 MG in SYRINGE 0 ML IV SCH ×2 (08:42→21:11)
[2021-04-21] MEDS: FLUTICASONE/VILANTEROL 100/25MCG 14 PUFFS/INHALER INH SCH (08:42)
[2021-04-21] MEDS: THIAMINE HCL 100 MG in SYRINGE 9 ML IV SCH (08:42)
[2021-04-21] MEDS: TRIAMCINOLONE ACET NASAL SPRAY 10.8ML BTL NAE SCH (08:43)
[2021-04-21] MEDS: CEFEPIME 2,000 MG in SYRINGE 0 ML IV SCH (09:36)
[2021-04-21] MEDS: ENOXAPARIN INJ 40 MG/0.4 ML SYR SQ SCH ×2 (09:36→21:12)
[2021-04-21] MEDS: DEXTROSE 50% 50 ML SYRINGE IV PRN (12:35)
[2021-04-21 13:26] LABS: Influenza A virus by PCR Negative (Neg); Influenza B virus by PCR Negative (Neg); RSV by PCR Negative (Neg)
[2021-04-21 13:37] LABS: SARS CoV2 RNA(COVID-19) InHosp POSITIVE (Negative)
[2021-04-21] MEDS ORDERED: CLINOLIPID 20% IV FAT EMULSION 250 ML IV SCH (16:00)
[2021-04-21] MEDS ORDERED: D5W IV SCH (16:00)
[2021-04-21] MEDS ORDERED: PERIPHERAL TPN IV SCH (16:00)
[2021-04-21] MEDS ORDERED: AMINO ACIDS 4.25% IV SCH (16:00)
[2021-04-21] MEDS ORDERED: STOP CLINOLIPID ONE (22:00)
--- NOTE | 2021-04-22 07:22 | Hospitalist Progress Note ---
Date of Service April 22, 2021 Assessment & Plan (1) Partial obstruction of small intestine: Plan: Ashia Ca is a 70 yo female with PMHx of prior SBO s/p ex lap for lysis of adhesions, PE on anticoagulation, mixed connective tissue disorder, and pneumatosis intestinalis who was admitted to [facility] on 04/07/21 with weakness and vomiting, found to have partial SBO on CT. Partial obstruction of small intestine, improved, then worsened Recent admission - had exploratory laparotomy on 01/29/21, with lysis of adhesion. Record review of outpatient gen surg visit 03/15/21 notes that patient was at risk for having additional bowel obstructions due to her extensive jejunal disease. States that "If admitted to the hospital again with similar symptoms would do everything possible apart from surgery including long- term TPN if necessary." Also states that patient "likely would not tolerate a bowel resection of her diseased bowel because of the extent of the disease and risk for short bowel syndrome." CT abdomen and pelvis 04/07/21: evidence of high-grade partial small bowel obstruction. Received Zosyn q8h from 04/08 to 04/10 for empiric coverage; discontinued Zosyn 04/10. Repeated KUB 04/15, showing continued small bowel obstruction. TDEE is [id number] kcal/day - Gastroenterology consulted: poor surgical candidate; continue conservative therapy, PPI, MiraLax. Signed off. - Tolerating diet (low fiber) well, but not likely getting in goal calorie intake - Opt for PICC placement and PPN with goal of supplementing caloric needs until PO intake is adequate. Discussed with patient, amenable and voiced understanding. - Continue PPN with supplemental feeds - Nutrition following: appreciate insight, recommendations - Will require close nutrition follow-up once discharged COVID-19 -- in setting of dyspnea, cough - Clinically reporting dyspnea and cough beginning on 04/19 - Work-up as follows: - Patient is vaccinated against COVID-19 x 3 - Interval development of L-sided opacities throughout admission on CXR - Labs initially revealing of thrombocytopenia / leukopenia with lymphopenia -- Procal negative - COVID-19 RT-PCR test returned positive 04/21 - Respiratory status stable. No O2 requirement. Monitor. - Mucinex b.i.d., Flutter valve b.i.d., Albuterol p.r.n. - If clinically worsening and new oxygen requirement, would obtain CRP and opt to transition to dexamethasone 6mg x 10d (or until d/c), and discontinue prednisone below - Given positive COVID-19 result and negative procalcitonin, opt to discontinue antimicrobial therapy 04/20. Can re-initiate if clinically worsening Possible Developing Adrenal Insufficiency - Patient chronically on prednisone 10mg daily in setting of scleroderma - With recent COVID-19 diagnosis (04/21) and approx. 2 days of softer BPs and intermittent episodes of hypoglycemia (04/19-04/21), concern there may be developing insufficiency - Random, AM cortisols cannot be run until Friday due to lab maintenance - Treat empirically by bumping home prednisone dose to (beginning 04/22): 40mg x 3 days --> 30 mg x 3 days --> 20mg x 3 days --> home dose (10mg daily) - If worsening symptoms, would opt for IV hydrocortisone or dexamethasone if COVID-19 worsens - Send random cortisol now to be run Friday AM - Monitor lytes Previous HoTN Likely multifactorial. Possibly secondary to third spacing secondary from severe protein malnutrition, as it is fluid-responsive, but also concern for ?developi ng adrenal insufficiency in setting of chronic prednisone use -Stable. Improving since initiation of PPN and increased PO intake overall -Increase prednisone, as below -Improving since initiation of PPN and increased PO intake -Continue to monitor Intermittent Hypoglycemia -- with asymptomatic low reported at 29 mg/dL on 04/21 - Patient with recurrent hypoglycemia throughout 04/20-04/21, and again (down to 29) on 04/21 - Responded well to 500cc bolus of D5W NS x 2 - Occurring despite increasing PO intake and PPN - no clear association pre-/post-prandially - Concern this may represent developing adrenal insufficiency in setting of COVID-19 - No h/o DM. No insulin orders. - Monitor BSGs q6h Severe Protein Calorie Malnutrition - Nutrition consulted. PPN ongoing with supplemental diet, as above. Scleroderma - Continue home prednisone at doses aforementioned. Home dose is 10mg. - No acute needs DVT -- despite chronic anticoagulation for previous PE, subtherapeutic (1.9) on admission - RLE Doppler (04/09): DVT in common femoral with extension to superficial venous system - Subtherapeutic INR on admission. Hold home warfarin given this and outpatient fluctuations - Initiate Lovenox 40mg b.i.d. --> opt to continue this at discharge and consid er transition back to oral agent as outpatient Electrolyte Abnormalities: hypokalemia, hypomagnesemia, hypophosphatemia - Suspect secondary to profound protein calorie malnutrition - Will continue to monitor electrolytes and replete as indicated. Elevated Troponin -- noted on admission - Peaked at 0.248 on 04/07, asymptomatic through that time - TTE without evidence of RMWAs - Likely secondary to demand ischemia - ECG w/ CP p.r.n. History of PE / On Chronic Anticoagulation - See DVT above. Transition from Warfarin -> Lovenox. TAB -- noted earlier during admission. Resolved with rehydration. Diet: Low-fiber diet. Supplemental PPN. Nutrition aiding. See above. Code Status: Full code DVT PPX: Lovenox therapeutic 40 mg SQ BID PT/OT: Consulted, pending placement Case Management: Discharge planning Dispo:PCU --> MS/T (2) Hypoglycemia: (3) Acute hypotension: (4) Hypomagnesemia: (5) Elevated troponin: Admission and Anticipated Discharge Date Admission Date: April 07, 2021 Supervising Physician Co-Signing Physician Notes Patient seen and examined, chart reviewed, case discussed with Dr. Felix and I agree with the assessment and plan as above except as otherwise noted below. 70-year-old female with a history of prior small bowel obstruction status post ex lap for lysis of adhesions, PE on anticoagulation, mixed connective tissue disorder, and pneumatosis intestinalis admitted to [facility] 04/07/2021 with weakness and vomiting with SBO on CT. Remains hypoalbuminemic, not a good surgical candidate. Patient will advance to low fiber diet with improving appetite and continued bowel function today. She reports that she feels that she can eat well if the food is good, but gets full quickly. No chest pain, chest pressure, shortness of breath, difficulty breathing at bedside assessment. Continues to have cough. Leftlower lobe diminished air movement. Regular rhythm with slight tachycardia. Thin, frail. No abdominal pain on assessment today. Nutrition: By HB calculation (54 kg, 1 inches, 70-year-old female) basal metabolic rate 1/1-8.2 kcal per day, total energy expenditure estimated 1,300-1,500kcal/day. Due to low calorie intake, ordered PICC line. Unable to obtain today as difficult stick, will have IV team reatttempt tomorrow. Added PPN on 04/22. will discharge with supplemental TPN. Anticipate rehab, PT/OT and placement in progress Left lower lobe pneumonia: Chest x-ray with new dense left lobar opacity. On cefepime for potential HAP. repeat x-ray in 24-48 hours to follow. Continue incentive spirometry. Fusion present but patient severely malnourished with low albumin and clinically intravascularly depleted. COVID 19: Patient tested positive for COVID 19 after 14 days of admission. Appears to be a true infection as patient reports loss of taste and smell. Moved to COVID unit. Unsure when exactly patient may have contracted COVID: visitors?, time in ER?, during admission? will discuss with infectious control Subjective Hypoglycemic to 51 last night, thereafter normalized. Cough continues, not necessarily worse. Endorses her "normal" shortness of breath that hasn't acutely worsened overnight. Feeling OK otherwise. Endorses average appetite - food isn't tasting/smelling right to her. No n/v/d. Review of Systems Review of Systems: as per HPI Physical Exam Physical Exam: General: Tired, but otherwise well-appearing, 70yoF in NAD. HEENT: NCAT. Eyes - Sclera are white, anicteric, and without injection. PERRL. Cardiac: Normal rate and regular rhythm; S1 and S2 present with no murmurs, rubs, or gallops. Pulmonary: Good respiratory effort with symmetric expansion of the chest. Occasional cough. No use of accessory muscles. Lungs demonstrated bilateral rhonchi, primarily in the upper lung allen. Abdominal: Normoactive bowel sounds. Abdomen was soft, nondistended, and non- tender to palpation. Extremities: Upper and lower extremities are warm and well perfused. Radial and dorsalis pedis pulses were 2+ b/l. Results & Data Results & Data ([facility]) Vital Signs (Past 12 Hours) Vital Signs Temp Pulse Pulse Pulse Resp BP BP 04/22/21 04:00 36.7 C 96 H 20 119/67 04/22/21 01:21 79 04/21/21 23:14 36.9 C 88 18 122/77 04/21/21 20:32 36.9 C 97 H 18 98/65 L Pulse Ox 04/22/21 04:00 92 04/22/21 01:21 04/21/21 23:14 94 04/21/21 20:32 91 Resident Activity Tracking Resident Involvement: Resident Care Provided Care Provided: Adult Hospital Medicine
[2021-04-22] MEDS: PANTOprazole 40 MG in SYRINGE 0 ML IV SCH ×2 (08:07→21:37)
[2021-04-22] MEDS: THIAMINE HCL 100 MG in SYRINGE 9 ML IV SCH (08:07)
[2021-04-22] MEDS: TRIAMCINOLONE ACET NASAL SPRAY 10.8ML BTL NAE SCH (08:08)
[2021-04-22] MEDS: FLUTICASONE/VILANTEROL 100/25MCG 14 PUFFS/INHALER INH SCH (08:08)
[2021-04-22] MEDS: guaiFENesin 600 MG TABCR PO SCH ×2 (08:51→21:37)
[2021-04-22] MEDS ORDERED: predniSONE 20 MG TAB PO SCH (09:00)
--- NOTE | 2021-04-22 09:57 | Billing Data ---
Date of Service April 21, 2021 Coding Level of Care Code 41517 Subseq Hosp Care Lvl 3
[2021-04-22 10:17] LABS: BUN Creatinine Ratio 32.5 (10-20); Creatinine Clr Calc Pharmacy 51.4 ml/min; Est GFR (African American) 79.9 ml/min; Est GFR (Non-African American) 68.9 ml/min; Phosphorus 3.1 mg/dl (2.5-4.9)
[2021-04-22] MEDS: ENOXAPARIN INJ 40 MG/0.4 ML SYR SQ SCH ×2 (10:25→21:37)
[2021-04-22 11:24] LABS: Magnesium 2.1 mg/dl (1.8-2.4); Potassium 3.3 mmol/L (3.5-5.1)
--- NOTE | 2021-04-22 11:24 | XRay Report ---
XR chest 1V portable CLINICAL HISTORY: cough. Follow-up left lower lobe alveolar opacity and effusion COMPARISON STUDY: 04/20/2021 TECHNIQUE: 1 view of the chest FINDINGS: Single frontal view of the chest demonstrates the cardiomediastinal silhouette to be within normal li mits. Compared to previous examination, there is increase alveolar opacity in the retrocardiac region left lower lobe characteristic of atelectasis/collapse versus pneumonia. Additionally, there is incr easing left pleural effusion and these findings support pneumonia rather than atelectasis. Right josiane thorax is clear. There is no evidence for vascular congestion. There is no acute osseous pathology. IMPRESSION: Increasing left lower lobe alveolar opacity and pleural effusion most characteristic of a lobar pneumonia. ACT 112: Negative or not required by law. Electronically signed by: Porter Sandy M.D. 04/22/2021 11:22 AM
[2021-04-22] MEDS ORDERED: POTASSIUM CHLORIDE 20 MEQ/15 ML UDC PO ONE (12:15)
[2021-04-22] MEDS ORDERED: TPN/PPN CONSULT PHARMACY STA (13:08)
[2021-04-22] MEDS ORDERED: PERIPHERAL TPN IV SCH (16:00)
[2021-04-22] MEDS ORDERED: CLINOLIPID 20% IV FAT EMULSION 250 ML IV SCH (16:00)
[2021-04-22] MEDS ORDERED: AMINO ACIDS 4.25% IV SCH (16:00)
[2021-04-22] MEDS ORDERED: D5W IV SCH (16:00)
[2021-04-22] MEDS ORDERED: STOP CLINOLIPID ONE (22:00)
--- NOTE | 2021-04-22 22:13 | Billing Data ---
Date of Service April 22, 2021 Coding Level of Care Code 80382 Subseq Hosp Care Lvl 3
[2021-04-23 07:04] LABS: BUN Creatinine Ratio 45.6 (10-20); Calcium 7.3 mg/dl (8.5-10.1); Est GFR (African American) 88.5 ml/min; Est GFR (Non-African American) 76.4 ml/min; Magnesium 2.2 mg/dl (1.8-2.4); Potassium 3.6 mmol/L (3.5-5.1)
[2021-04-23 07:07] LABS: Bilirubin,Total 0.2 mg/dl (0.2-1); Phosphorus 2.8 mg/dl (2.5-4.9)
[2021-04-23 07:12] LABS: Hematocrit (blood only) 31.9 % (37-47); Hemoglobin 10.3 g/dL (12.0-16.0); Mean Corpuscular Hemoglobin 30.3 pg (25-34); Mean Corpuscular Hgb Conc 32.3 g/dL (32-36); Mean Corpuscular Volume 93.8 fL (80-100); Platelet Count 77 K/uL (130-400); Platelet Estimate Decreased (Normal); RDW Coefficient of Variation 15.3 % (11.5-14.5); White Blood Count 6.08 K/uL (4.8-10.8)
--- NOTE | 2021-04-23 07:33 | Hospitalist Progress Note ---
Date of Service April 23, 2021 Assessment & Plan (1) Partial obstruction of small intestine: Plan: Ashia Ca is a 70 yo female with PMHx of prior SBO s/p ex lap for lysis of adhesions, PE on anticoagulation, mixed connective tissue disorder, and pneumatosis intestinalis who was admitted to [facility] on 04/07/21 with weakness and vomiting, found to have partial SBO on CT. Partial obstruction of small intestine, improved, then worsened Recent admission - had exploratory laparotomy on 01/29/21, with lysis of adhesion. Record review of outpatient gen surg visit 03/15/21 notes that patient was at risk for having additional bowel obstructions due to her extensive jejunal disease. States that "If admitted to the hospital again with similar symptoms would do everything possible apart from surgery including long- term TPN if necessary." Also states that patient "likely would not tolerate a bowel resection of her diseased bowel because of the extent of the disease and risk for short bowel syndrome." CT abdomen and pelvis 04/07/21: evidence of high-grade partial small bowel obstruction. Received Zosyn q8h from 04/08 to 04/10 for empiric coverage; discontinued Zosyn 04/10. Repeated KUB 04/15, showing continued small bowel obstruction. However bowel movements are occurring suggesting that the obstruction is improving. - Gastroenterology consulted: poor surgical candidate; continue conservative therapy, PPI, MiraLax. Signed off. - Tolerating diet (low fiber) well, but not likely getting in goal calorie intake - Opt for PICC placement however have been unable to secure PICC line therefore have been using PPN Will opt for additional calorie counts patient will need close monitoring of her nutritional status while at fpc facility - Nutrition following: appreciate insight, recommendations - Will require close nutrition follow-up once discharged Severe Protein Calorie Malnutrition - Nutrition consulted. PPN ongoing with supplemental diet, as above. electrolyte abnormalities, including hypomagnesemia-replete Scleroderma - Continue home prednisone at doses aforementioned. Home dose is 10mg. - No acute needs TAB -- noted earlier during admission. Resolved with rehydration. Diet: Low-fiber diet. Supplemental PPN. Nutrition aiding. See above. (2) SARS-CoV-2 positive: Plan: COVID-19 -- in setting of dyspnea, cough - Clinically reporting dyspnea and cough beginning on 04/19 after the patient has been hospitalized since 09/05/2020 - Work-up as follows: - Patient is vaccinated against COVID-19 x 3 - Interval development of L-sided opacities throughout admission on CXR - Labs initially revealing of thrombocytopenia / leukopenia with lymphopenia -- Procal negative - COVID-19 RT-PCR test returned positive 04/21 - Respiratory status stable. No O2 requirement. Monitor. - Mucinex b.i.d., Flutter valve b.i.d., Albuterol p.r.n. - If clinically worsening and new oxygen requirement, would obtain CRP and opt to transition to dexamethasone 6mg x 10d (or until d/c), and discontinue prednisone below - Given positive COVID-19 result and negative procalcitonin, opt to discontinue antimicrobial therapy 04/20. Can re-initiate if clinically worsening (3) Acute hypotension: Plan: Initial thought was possible adrenal insufficiency in the setting of chronic prednisone therapy for scleroderma - Patient chronically on prednisone 10mg daily in setting of scleroderma -A.m. cortisol from 04/22 is appropriate - Treat empirically by bumping home prednisone dose to (beginning 04/22): 40mg x 3 days --> 30 mg x 3 days --> 20mg x 3 days --> home dose (10mg daily) - If worsening symptoms, would opt for IV hydrocortisone or dexamethasone if COVID-19 worsens (4) Hypoglycemia: Plan: Intermittent Hypoglycemia -- with asymptomatic low reported at 29 mg/dL on 04/21 - Patient with recurrent hypoglycemia throughout 04/20-04/21, and again (down to 29) on 04/21 - Responded well to 500cc bolus of D5W NS x 2 - Occurring despite increasing PO intake and PPN - no clear association pre-/post-prandially - Concern this may represent developing adrenal insufficiency in setting of COVID-19 - No h/o DM. No insulin orders. - Monitor BSGs q6h (5) Elevated troponin: Plan: Elevated Troponin -- noted on admission - Peaked at 0.248 on 04/07, asymptomatic through that time - TTE without evidence of RMWAs - Likely secondary to demand ischemia (6) DVT prophylaxis: Plan: DVT -- despite chronic anticoagulation for previous PE, subtherapeutic (1.9) on admission - RLE Doppler (04/09): DVT in common femoral with extension to superficial venous system - Subtherapeutic INR on admission. Hold home warfarin given this and outpatient fluctuations - Initiate Lovenox 40mg b.i.d. --> opt to continue this at discharge and consider transition back to oral agent as outpatient Plan: Code Status: Full code Admission and Anticipated Discharge Date Admission Date: April 07, 2021 Subjective Patient is in a debilitated state she has poor oral intake not meeting her caloric needs has had challenges with PICC line securing such that she has been on peripheral hyperalgia not TPN she is having bowel movement suggesting that her bowel obstruction is improving however she is not able to eat enough to support her self. Review of Systems Review of Systems: Mild distress and fatigue markedly weakened no headache, no visual changes no speech or swallowing issues no chest pain, pressure or palpitations no shortness of breath, cough or wheezes no abdominal pain, nausea or vomiting, loose bowel movements but no diarrhea no dysuria, hematuria or frequency no focal joint pain or swelling no back pain, CVA tenderness or radicular pain Lower extremity bruising, but no bleeding or rashes no focal signs of weakness or numbness or altered sensation no complaints of anxiety or depression.. Physical Exam Physical Exam: The patient chronically ill malnourished Vital signs as documented. Head exam is normocephalic atraumatic Neck is without JVD, thyromegaly, or carotid bruits. Lungs are clear to auscultation, decreased at the bases Cardiac exam, Rhythm is regular.. No murmurs, rubs or gallops. Abdominal exam reveals normal to hyperactive bowel sounds, soft non tender, no masses Extremities are nonedematous and both pedal pulses are present Neurologic exam is alert and oriented, no focal loss of strength or sensation Skin is with with bruises on her lower extremities Psychologically is without concerns for anxiety or depression.. Results & Data Results & Data ([facility]) Vital Signs (Past 12 Hours) Vital Signs Temp Pulse Pulse Pulse Pulse Resp BP 04/23/21 03:23 97.9 F 91 H 20 97/60 L 04/23/21 01:41 99 H 04/22/21 23:08 97.7 F 96 H 20 116/75 04/22/21 20:09 98.1 F 103 H 18 108/60 Pulse Ox 04/23/21 03:23 92 04/23/21 01:41 04/22/21 23:08 91 04/22/21 20:09 92 PG Care Time/CCT Total # of Minutes Spent Total Time Spent with Patient: Total time spent is greater than 50% in coordination of care (as documented) at patient's floor/unit and/or counseling patient: Coding Level of Care Code 12371 Subseq Hosp Care Lvl 3 Diagnoses Partial obstruction of small intestine K56.600 Hypoglycemia E16.2 Acute hypotension I95.9 Elevated troponin R77.8 SARS-CoV-2 positive U07.1 DVT prophylaxis Z29.9
[2021-04-23] MEDS: FLUTICASONE/VILANTEROL 100/25MCG 14 PUFFS/INHALER INH SCH (08:59)
[2021-04-23] MEDS: predniSONE 20 MG TAB PO SCH ×2 (09:00→20:32)
[2021-04-23] MEDS: TRIAMCINOLONE ACET NASAL SPRAY 10.8ML BTL NAE SCH (09:00)
[2021-04-23] MEDS: ENOXAPARIN INJ 40 MG/0.4 ML SYR SQ SCH ×2 (09:00→20:32)
[2021-04-23] MEDS: PANTOprazole 40 MG in SYRINGE 0 ML IV SCH ×2 (09:00→20:31)
[2021-04-23] MEDS: guaiFENesin 600 MG TABCR PO SCH ×2 (09:00→20:32)
[2021-04-23] MEDS: THIAMINE HCL 100 MG in SYRINGE 9 ML IV SCH (09:00)
--- NOTE | 2021-04-23 13:31 | Pharmacy Report ---
PHA: Parenteral Nutrition Con - Date of Service April 23, 2021 - Scope Pharmacy was consulted on 04/17/21 to manage parenteral nutrition orders for this patient. - Subjective The patient is currently on day #7 of peripheral parenteral nutrition for small bowel obstruction/severe protein-calorie malnutrition. - Objective Height: 5 ft 1 in Weight: 57.9 kg Diet: Clear Liquid (low fiber) Intake & Output (24hrs):: Intake & Output 04/21/21 04/22/21 04/23/21 04/24/21 06:59 06:59 06:59 06:59 Intake Total 851.658 / 412.303 4187.433 / 2071.433 2009 Output Total 2 / 2 125 / 125 252 / 252 Balance 849.658 / 467.601 9920.433 / 3838.535 7066 / 1758 Weight 60.5 kg 60.1 kg 57.9 kg Laboratory Data (Last 24 Hr):: 04/23/21 06:16 Sodium 138 Potassium 3.6 Chloride 110 H Carbon Dioxide 21 BUN 36 H Creatinine 0.79 Glucose 81 Calcium 7.3 L Phosphorus 2.8 Magnesium 2.2 Total Bilirubin 0.2 AST 40 H ALT 43 Alkaline Phosphatase 80 Triglycerides 192 H Nutrition Assessment:: Please refer to the Notes section of the EMR for the most recent rcis note. - Assessment 04/23: * PICC line consult placed to IV team on 04/22/21. IV team unable to place PICC yesterday. RN spoke with IV team RN who states they may or may not try to place PICC line again today. * Regardless, PN will be written as if it will infuse peripherally today. * If PN continues and PICC line unable to be placed, recommend PEG tube placement as we are now on day #7 of PPN. * Triglycerides increased from 70 mg/dL prior to PN initiation to 192 mg/dL today. * Has received 50 g of lipids daily x 6 days. * Will reduce lipids and provide 50 g every other day. - Plan For day #7 of PPN administration, the following will be ordered: Macronutrients Amino acids 71 grams/day Dextrose 84 grams/day Lipids 0 grams/day Micronutrients Sodium phosphate 9 MMol Sodium acetate 140 mEq Potassium phosphate 15 mMol Potassium acetate 20 mEq Magnesium sulfate 4.06 mEq Multivitamins 10 mL Trace Elements 1 mL Total volume 1780 mL to be infused over 24 hrs will provide 571 kcal/day Final osmolarity 852 mOsm/L (maximum for PPN is 900 mOsm/L) Labs, as indicated, will be ordered per protocol Pharmacy will continue to follow and adjust parenteral nutrition orders on a daily basis. Thank you for allowing us to participate in the care of this patient.
[2021-04-23] MEDS ORDERED: D5W IV SCH (16:00)
[2021-04-23] MEDS ORDERED: AMINO ACIDS 4.25% IV SCH (16:00)
[2021-04-23] MEDS ORDERED: PERIPHERAL TPN IV SCH (16:00)
[2021-04-23] MEDS: ALBUTEROL HFA 8 GM INHALER INH PRN (22:55)
[2021-04-24 06:51] LABS: BUN Creatinine Ratio 49.5 (10-20); Calcium 7.3 mg/dl (8.5-10.1); Creatinine Clr Calc Pharmacy 59.4 ml/min; Est GFR (African American) 97.4 ml/min; Magnesium 1.8 mg/dl (1.8-2.4); Potassium 3.4 mmol/L (3.5-5.1)
[2021-04-24] MEDS: FLUTICASONE/VILANTEROL 100/25MCG 14 PUFFS/INHALER INH SCH (09:11)
[2021-04-24] MEDS: PANTOprazole 40 MG in SYRINGE 0 ML IV SCH ×2 (09:11→21:08)
[2021-04-24] MEDS: ENOXAPARIN INJ 40 MG/0.4 ML SYR SQ SCH ×2 (09:12→21:10)
[2021-04-24] MEDS: TRIAMCINOLONE ACET NASAL SPRAY 10.8ML BTL NAE SCH (09:12)
[2021-04-24] MEDS: guaiFENesin 600 MG TABCR PO SCH ×2 (09:12→21:09)
[2021-04-24] MEDS: predniSONE 20 MG TAB PO SCH ×2 (09:13→21:09)
[2021-04-24] MEDS: THIAMINE HCL 100 MG in SYRINGE 9 ML IV SCH (09:14)
--- NOTE | 2021-04-24 11:58 | Pharmacy Report ---
PHA: Parenteral Nutrition Con - Date of Service April 24, 2021 - Scope Pharmacy was consulted on [DATE] to manage parenteral nutrition orders for this patient. - Subjective The patient is currently on day [#] of [peripheral or central] parenteral nutrition for [INDICATION]. 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 - Assessment Patient did receive a PICC line yesterday and thus was able to switch to TPN today. Per dietary patient consumed 0% of meals yesterday. Patient will receive lipids today. - Plan For day 8 of PN administration, the following will be ordered: Macronutrients Amino acids 80 grams/day Dextrose 140 grams/day Lipids 50 grams/day Micronutrients Sodium phosphate 9 MMol Sodium acetate 80 mEq Potassium phosphate 15 mMol Potassium acetate 40 mEq Magnesium sulfate 4.06 mEq Multivitamins 10 mL Trace Elements 1 mL Total volume 1080 mL to be infused over 24 hrs will provide 1296 kcal/day Final osmolarity 1716.79 mOsm/L (maximum for PPN is 900 mOsm/L) Labs, as indicated, will be ordered per protocol Pharmacy will continue to follow and adjust parenteral nutrition orders on a daily basis. Thank you for allowing us to participate in the care of this patient.
--- NOTE | 2021-04-24 13:29 | Hospitalist Progress Note ---
Date of Service April 24, 2021 Assessment & Plan (1) Partial obstruction of small intestine: Plan: Ashia Ca is a 70 yo female with PMHx of prior SBO s/p ex lap for lysis of adhesions, PE on anticoagulation, mixed connective tissue disorder, and pneumatosis intestinalis who was admitted to [facility] on 04/07/21 with weakness and vomiting, found to have partial SBO on CT. Partial obstruction of small intestine, improved, then worsened Recent admission - had exploratory laparotomy on 01/29/21, with lysis of adhesion. Record review of outpatient gen surg visit 03/15/21 notes that patient was at risk for having additional bowel obstructions due to her extensive jejunal disease. States that "If admitted to the hospital again with similar symptoms would do everything possible apart from surgery including long- term TPN if necessary." Also states that patient "likely would not tolerate a bowel resection of her diseased bowel because of the extent of the disease and risk for short bowel syndrome." CT abdomen and pelvis 04/07/21: evidence of high-grade partial small bowel obstruction. Received Zosyn q8h from 04/08 to 04/10 for empiric coverage; discontinued Zosyn 04/10. Repeated KUB 04/15, showing continued small bowel obstruction. However bowel movements are occurring suggesting that the obstruction is improving. - Gastroenterology consulted: poor surgical candidate; continue conservative therapy, PPI, MiraLax. Signed off. - Tolerating diet (low fiber) well, but not likely getting in goal calorie intake - Opt for PICC placement however have been unable to secure PICC line therefore have been using PPN Will opt for additional calorie counts patient will need close monitoring of her nutritional status while at alf facility - Nutrition following: appreciate insight, recommendations - Will require close nutrition follow-up once discharged Severe Protein Calorie Malnutrition - Nutrition consulted. PPN ongoing with supplemental diet, as above, still not eating great electrolytes stable today Scleroderma - Continue home prednisone at doses aforementioned. Home dose is 10mg. - No acute needs TAB -- noted earlier during admission. Resolved with rehydration. Diet: Low-fiber diet. Supplemental PPN. Nutrition aiding. See above. (2) SARS-CoV-2 positive: Plan: COVID-19 -- in setting of dyspnea, cough - Clinically reporting dyspnea and cough beginning on 04/19 after the patient has been hospitalized since 09/05/2020 - Work-up as follows: - Patient is vaccinated against COVID-19 x 3 - Interval development of L-sided opacities throughout admission on CXR - Labs initially revealing of thrombocytopenia / leukopenia with lymphopenia -- Procal negative - COVID-19 RT-PCR test returned positive 04/21 - Respiratory status stable. No O2 requirement. Monitor. - Mucinex b.i.d., Flutter valve b.i.d., Albuterol p.r.n. - If clinically worsening and new oxygen requirement, would obtain CRP and opt t o transition to dexamethasone 6mg x 10d (or until d/c), and discontinue prednisone below - Given positive COVID-19 result and negative procalcitonin, opt to discontinue antimicrobial therapy 04/20. Can re-initiate if clinically worsening (3) Acute hypotension: Plan: Initial thought was possible adrenal insufficiency in the setting of chronic prednisone therapy for scleroderma - Patient chronically on prednisone 10mg daily in setting of scleroderma -A.m. cortisol from 04/22 is appropriate - Treat empirically by bumping home prednisone dose to (beginning 04/22): 40mg x 3 days --> 30 mg x 3 days --> 20mg x 3 days --> home dose (10mg daily) - If worsening symptoms, would opt for IV hydrocortisone or dexamethasone if COVID-19 worsens (4) Hypoglycemia: Plan: Intermittent Hypoglycemia -- with asymptomatic low reported at 29 mg/dL on 04/21 - Patient with recurrent hypoglycemia throughout 04/20-04/21, and again (down to 29) on 04/21 - Responded well to 500cc bolus of D5W NS x 2 - Occurring despite increasing PO intake and PPN - no clear association pre-/post-prandially - Concern this may represent developing adrenal insufficiency in setting of COVID-19 - No h/o DM. No insulin orders. - Monitor BSGs q6h (5) Elevated troponin: Plan: Elevated Troponin -- noted on admission - Peaked at 0.248 on 04/07, asymptomatic through that time - TTE without evidence of RMWAs - Likely secondary to demand ischemia (6) DVT prophylaxis: Plan: DVT -- despite chronic anticoagulation for previous PE, subtherapeutic (1.9) on admission - RLE Doppler (04/09): DVT in common femoral with extension to superficial venous system - Subtherapeutic INR on admission. Hold home warfarin given this and outpatient fluctuations - Initiate Lovenox 40mg b.i.d. --> opt to continue this at discharge and consider transition back to oral agent as outpatient Plan: Code Status: Full code Admission and Anticipated Discharge Date Admission Date: April 07, 2021 Subjective patient still not eating great denies abdominal pain, nausea, constipation, just has no appetite breathing is normal, no cough, no fever she is frustrated that she cannot eat more frustrated with her situation reviewed labs and chart, electrolytes are stable Review of Systems Review of Systems: All systems reviewed & are unremarkable except as noted in Subjective Physical Exam Physical Exam: General: well developed, thin, no acute distress, comfortable Neck: supple, trachea midline, normal thyroid Lungs: clear to auscultation bilaterally, normal respiratory effort, no accessory muscle use, no distress Heart: regular S1 and S2, no murmur, peripheral pulses normal, capillary refill normal, no edema Abdomen: soft, NT, ND, + BS, no hepatomegaly, normal to percussion Extremities: normal in appearance, no cyanosis, no petechiae, strength is 5/5 bilaterally Neuro: awake, cooperative, moves all extremities, no focal motor deficits, CN II-XII intact, sensation in extremities intact, normal speech Skin: warm, dry, no rash, normal turgor Psych: Awake, alert oriented x 3, flat affect Results & Data Results & Data ([facility]) Vital Signs (Past 12 Hours) Vital Signs Temp Pulse Pulse Resp BP Pulse Ox 04/24/21 12:00 36.6 C 85 18 111/74 90 04/24/21 08:00 36.7 C 77 83 20 108/74 88 L Laboratory Results Laboratory Results - last 24 hr 04/24/21 04/24/21 04/24/21 00:02 05:23 05:53 Sodium 138 Potassium 3.4 L Chloride 109 H Carbon Dioxide 24 Anion Gap 5.0 BUN 36 H Creatinine 0.73 Est Cr Clr Drug Dosing 59.4 Est GFR ( Amer) 97.4 Est GFR (Non-Af Amer) 84.0 BUN/Creatinine Ratio 49.5 H Glucose 109 H POC Glucose 94 108 H Calcium 7.3 L Phosphorus 3.0 Magnesium 1.8 04/24/21 18:22 Sodium Potassium Chloride Carbon Dioxide Anion Gap BUN Creatinine Est Cr Clr Drug Dosing Est GFR ( Amer) Est GFR (Non-Af Amer) BUN/Creatinine Ratio Glucose POC Glucose 98 Calcium Phosphorus Magnesium Medications Administered Current Inpatient Medications Acetaminophen (Acetaminophen 325 Mg Tab) 650 mg PO Q4H PRN PRN Reason: Pain or Fever Stop: 05/08/21 05:51 Albuterol (Albuterol Hfa 8 Gm Inhaler) 2 puffs INH Q4R PRN PRN Reason: shortness of breath/wheezing Stop: 05/22/21 07:29 Last Admin: 04/23/21 22:55 Dose: 2 puffs Documented by: Dextrose (Dextrose 50% 50 Ml Syringe) 25 - 50 ml IV UD PRN; Protocol PRN Reason: Hypoglycemia Protocol Stop: 05/13/21 19:34 Last Admin: 04/21/21 12:35 Dose: 50 ml Documented by: Enoxaparin Sodium (Enoxaparin Inj 40 Mg/0.4 Ml Syr) 40 mg SQ Q12H FABIAN Stop: 05/11/21 10:29 Last Admin: 04/24/21 09:12 Dose: 40 mg Documented by: Fluticasone/Vilanterol (Fluticasone/Vilanterol 100/25mcg 14 Puffs/Inhaler) 1 puffs INH DAILY FABIAN Stop: 05/08/21 08:59 Last Admin: 04/24/21 09:11 Dose: 1 puffs Documented by: Glucagon (Glucagon For Inj 1 Mg Vial) 1 mg SQ UD PRN; Protocol PRN Reason: Hypoglycemia Protocol Stop: 05/13/21 19:34 Glucose (Glucose 10 Tabs/Tube) 4 - 8 tabs PO UD PRN; Protocol PRN Reason: Hypoglycemia Protocol Stop: 05/13/21 19:34 Glucose (Glucose 40% Gel 15 Gm Tube) 15 - 30 gm PO UD PRN; Protocol PRN Reason: Hypoglycemia Protocol Stop: 05/13/21 19:34 Guaifenesin (Guaifenesin 600 Mg Tabcr) 600 mg PO Q12 FABIAN Stop: 05/22/21 08:59 Last Admin: 04/24/21 09:12 Dose: 600 mg Documented by: Heparin Sodium (Beef Lung) (Heparin 10 Unit/Ml 5 Ml Flush) 5 ml FLUSH PRN PRN PRN Reason: Flush Stop: 05/23/21 14:59 Pantoprazole Sodium 40 mg/ (Syringe) 10 mls @ 5 mls/min IV BID COUNTS INCLUDE 234 BEDS AT THE [facility] Stop: 05/08/21 05:44 Last Admin: 04/24/21 09:11 Dose: 5 mls/min Documented by: Prochlorperazine 5 mg/ Syringe 5 mls @ 5 mls/min IV Q6H PRN PRN Reason: Nausea not relieved by Zofran Stop: 05/13/21 21:38 Last Admin: 04/14/21 20:51 Dose: 5 mls/min Documented by: Thiamine HCl 100 mg/ Syringe 10 mls @ 2 mls/min IV QAM FABIAN Stop: 05/16/21 13:59 Last Admin: 04/24/21 09:14 Dose: 2 mls/min Documented by: Dextrose (D10w) 1,000 mls @ 0 mls/hr IV .Q0M PRN PRN Reason: protocol (see label comments) Stop: 05/17/21 12:12 Amino Acids/Dextrose 1,080 ml/ (Nutrition (Parenteral)) 1,080 mls @ 45 mls/hr IV .Q24H FABIAN; Protocol Stop: 04/25/21 15:59 Last Admin: 04/24/21 16:23 Dose: 45 mls/hr Documented by: Fat Emulsion-Shannon Oil/Soybean Oil (Clinolipid 20% Iv Fat Emulsion) 250 mls @ 41.667 mls/hr IV .Q6H COUNTS INCLUDE 234 BEDS AT THE [facility] Stop: 04/24/21 21:59 Last Admin: 04/24/21 16:23 Dose: 41.7 mls/hr Documented by: Miscellaneous (Carbohydrates For Hypoglycemia ) 15 - 30 gm PO UD PRN PRN Reason: Hypoglycemia Protocol Stop: 05/13/21 19:34 Last Admin: 04/21/21 11:58 Dose: 15 gm Documented by: Miscellaneous (Stop Clinolipid) 1 ea N/A ONE ONE Stop: 04/24/21 22:01 Miscellaneous Information (Tpn/Ppn Consult Pharmacy) 1 ea N/A UD PRN PRN Reason: Consult Stop: 05/15/21 07:59 Ondansetron HCl (Ondansetron Inj 2 Mg/Ml 2 Ml Vial) 4 mg IV Q4H PRN PRN Reason: Nausea Stop: 05/13/21 21:38 Last Admin: 04/15/21 13:10 Dose: 4 mg Documented by: Polyethylene Glycol (Polyethylene (Miralax) 17 Gm Pack) 17 gm PO DAILY PRN PRN Reason: Constipation Stop: 05/08/21 05:51 Prednisone (Prednisone 10 Mg Tablet) 10 mg PO DAILY COUNTS INCLUDE 234 BEDS AT THE [facility] Stop: 05/08/21 08:59 Last Admin: 04/21/21 08:42 Dose: 10 mg Documented by: Prednisone (Prednisone 10 Mg Tablet) 30 mg PO DAILY COUNTS INCLUDE 234 BEDS AT THE [facility] Stop: 04/28/21 08:59 Prednisone (Prednisone 20 Mg Tab) 20 mg PO DAILY COUNTS INCLUDE 234 BEDS AT THE [facility] Stop: 05/01/21 08:59 Prednisone (Prednisone 20 Mg Tab) 20 mg PO BID COUNTS INCLUDE 234 BEDS AT THE [facility] Stop: 04/26/21 08:59 Last Admin: 04/24/21 09:13 Dose: 20 mg Documented by: Tramadol HCl (Tramadol Hcl 50 Mg Tablet) 50 mg PO DAILY PRN PRN Reason: Pain Stop: 05/08/21 05:51 Triamcinolone Acetonide (Triamcinolone Acet Nasal [place] 10.8ml Btl) 2 sprays FAISAL DAILY COUNTS INCLUDE 234 BEDS AT THE [facility] Stop: 05/18/21 08:59 Last Admin: 04/24/21 09:12 Dose: 2 sprays Documented by: PG Care Time/CCT Total # of Minutes Spent Total Time Spent with Patient: Total time spent is greater than 50% in coordination of care (as documented) at patient's floor/unit and/or counseling patient: Coding Level of Care Code 19399 Subseq Hosp Care Lvl 2 Diagnoses Partial obstruction of small intestine K56.600 SARS-CoV-2 positive U07.1 Acute hypotension I95.9 Hypoglycemia E16.2 Elevated troponin R77.8 DVT prophylaxis Z29.9
[2021-04-24] MEDS ORDERED: CENTRAL TPN IV SCH (16:00)
[2021-04-24] MEDS ORDERED: AMINO ACID 8% IV SCH (16:00)
[2021-04-24] MEDS ORDERED: [UNRECOGNIZED DRUG - OTHER] IV SCH (16:00)
[2021-04-24] MEDS ORDERED: CLINOLIPID 20% IV FAT EMULSION 250 ML IV SCH (16:00)
[2021-04-24] MEDS ORDERED: STOP CLINOLIPID ONE (22:00)
[2021-04-25 06:56] LABS: BUN Creatinine Ratio 57.5 (10-20); Calcium 7.1 mg/dl (8.5-10.1); Creatinine Clr Calc Pharmacy 60.6 ml/min; Est GFR (African American) 95.8 ml/min; Est GFR (Non-African American) 82.7 ml/min; Magnesium 1.5 mg/dl (1.8-2.4); Potassium 3.7 mmol/L (3.5-5.1)
[2021-04-25 07:04] LABS: Phosphorus 2.4 mg/dl (2.5-4.9)
[2021-04-25] MEDS: FLUTICASONE/VILANTEROL 100/25MCG 14 PUFFS/INHALER INH SCH (09:33)
[2021-04-25] MEDS: TRIAMCINOLONE ACET NASAL SPRAY 10.8ML BTL NAE SCH (09:34)
[2021-04-25] MEDS: ENOXAPARIN INJ 40 MG/0.4 ML SYR SQ SCH ×2 (09:34→20:43)
[2021-04-25] MEDS: predniSONE 10 MG TABLET PO SCH (09:35)
[2021-04-25] MEDS: PANTOprazole 40 MG in SYRINGE 0 ML IV SCH ×2 (09:36→20:43)
[2021-04-25] MEDS: MAGNESIUM SULFATE / D5W 1 GM/100 ML BAG IV SCH ×2 (09:36→11:42)
[2021-04-25] MEDS: predniSONE 20 MG TAB PO SCH ×2 (09:36→20:44)
[2021-04-25] MEDS: THIAMINE HCL 100 MG in SYRINGE 9 ML IV SCH (09:36)
[2021-04-25] MEDS: guaiFENesin 600 MG TABCR PO SCH ×2 (09:36→20:44)
--- NOTE | 2021-04-25 14:51 | Hospitalist Progress Note ---
Date of Service April 25, 2021 Assessment & Plan (1) Partial obstruction of small intestine: Plan: Ashia Ca is a 70 yo female with PMHx of prior SBO s/p ex lap for lysis of adhesions, PE on anticoagulation, mixed connective tissue disorder, and pneumatosis intestinalis who was admitted to [facility] on 04/07/21 with weakness and vomiting, found to have partial SBO on CT. Partial obstruction of small intestine, improved, then worsened Recent admission - had exploratory laparotomy on 01/29/21, with lysis of adhesion. Record review of outpatient gen surg visit 03/15/21 notes that patient was at risk for having additional bowel obstructions due to her extensive jejunal disease. States that "If admitted to the hospital again with similar symptoms would do everything possible apart from surgery including long- term TPN if necessary." Also states that patient "likely would not tolerate a bowel resection of her diseased bowel because of the extent of the disease and risk for short bowel syndrome." CT abdomen and pelvis 04/07/21: evidence of high-grade partial small bowel obstruction. Received Zosyn q8h from 04/08 to 04/10 for empiric coverage; discontinued Zosyn 04/10. Repeated KUB 04/15, showing continued small bowel obstruction. However bowel movements are occurring suggesting that the obstruction is improving. - Gastroenterology consulted: poor surgical candidate; continue conservative therapy, PPI, MiraLax. Signed off. - Tolerating diet (low fiber) well, but not likely getting in goal calorie intake - Opt for PICC placement however have been unable to secure PICC line therefore have been using PPN Will opt for additional calorie counts patient will need close monitoring of her nutritional status while at shelter facility - Nutrition following: appreciate insight, recommendations - Will require close nutrition follow-up once discharged Severe Protein Calorie Malnutrition - Nutrition consulted. PPN ongoing with supplemental diet, as above, eating a little better the past two days magnesium low at 1.5, replace IV Scleroderma - Continue home prednisone at doses aforementioned. Home dose is 10mg. - No acute needs TAB -- noted earlier during admission. Resolved with rehydration. Diet: Low-fiber diet. Supplemental PPN. Nutrition aiding. See above. (2) SARS-CoV-2 positive: Plan: COVID-19 -- in setting of dyspnea, cough - Clinically reporting dyspnea and cough beginning on 04/19 after the patient has been hospitalized since 09/05/2020 - Work-up as follows: - Patient is vaccinated against COVID-19 x 3 - Interval development of L-sided opacities throughout admission on CXR - Labs initially revealing of thrombocytopenia / leukopenia with lymphopenia -- Procal negative - COVID-19 RT-PCR test returned positive 04/21 - Respiratory status stable. No O2 requirement. Monitor. - Mucinex b.i.d., Flutter valve b.i.d., Albuterol p.r.n. (3) Acute hypotension: Plan: Initial thought was possible adrenal insufficiency in the setting of chronic prednisone therapy for scleroderma - Patient chronically on prednisone 10mg daily in setting of scleroderma -A.m. cortisol from 04/22 is appropriate - Treat empirically by bumping home prednisone dose to (beginning 04/22): 40mg x 3 days --> 30 mg x 3 days --> 20mg x 3 days --> home dose (10mg daily) - If worsening symptoms, would opt for IV hydrocortisone or dexamethasone if COVID-19 worsens (4) Hypoglycemia: Plan: Intermittent Hypoglycemia -- no issues past few days - Responded well to 500cc bolus of D5W NS x 2 - Occurring despite increasing PO intake and PPN - no clear association pre-/post-prandially - Concern this may represent developing adrenal insufficiency in setting of COVID-19 - No h/o DM. No insulin orders. - Monitor BSGs q6h (5) Elevated troponin: Plan: Elevated Troponin -- noted on admission - Peaked at 0.248 on 04/07, asymptomatic through that time - TTE without evidence of RMWAs - Likely secondary to demand ischemia (6) DVT prophylaxis: Plan: DVT -- despite chronic anticoagulation for previous PE, subtherapeutic (1.9) on admission - RLE Doppler (04/09): DVT in common femoral with extension to superficial venous system - Subtherapeutic INR on admission. Hold home warfarin given this and outpatient fluctuations - Initiate Lovenox 40mg b.i.d. --> opt to continue this at discharge and consider transition back to oral agent as outpatient Plan: Code Status: Full code Admission and Anticipated Discharge Date Admission Date: April 07, 2021 Subjective patient having a good day she ate broth, rice, tea, pudding, overall eating more no nausea, no diarrhea, no abdominal pain no dyspnea, no cough, no fever labs are stable except magnesium a little low, replace IV c/o edema in legs, explained it is due to low albumin, could try Albumin and Lasix tomorrow Review of Systems Review of Systems: All systems reviewed & are unremarkable except as noted in Subjective Physical Exam Physical Exam: General: well developed, thin, no acute distress, comfortable Neck: supple, trachea midline, normal thyroid Lungs: clear to auscultation bilaterally, normal respiratory effort, no accessory muscle use, no distress Heart: regular S1 and S2, no murmur, peripheral pulses normal, capillary refill normal, no edema Abdomen: soft, NT, ND, + BS, no hepatomegaly, normal to percussion Extremities: normal in appearance, no cyanosis, no petechiae, strength is 5/5 bilaterally Neuro: awake, cooperative, moves all extremities, no focal motor deficits, CN II-XII intact, sensation in extremities intact, normal speech Skin: warm, dry, no rash, normal turgor Psych: Awake, alert oriented x 3, flat affect Results & Data Results & Data ([facility]) Vital Signs (Past 12 Hours) Vital Signs Temp Pulse Pulse Pulse Resp BP Pulse Ox 04/25/21 12:00 36.9 C 94 H 18 135/84 93 04/25/21 08:00 36.5 C 76 97 H 18 121/85 04/25/21 03:00 36.5 C 96 H 18 103/67 90 Laboratory Results Laboratory Results - last 24 hr 04/24/21 04/24/21 04/25/21 18:22 20:13 05:53 Sodium 141 Potassium 3.7 Chloride 109 H Carbon Dioxide 25 Anion Gap 7.0 BUN 42 H Creatinine 0.74 Est Cr Clr Drug Dosing 60.6 Est GFR ( Amer) 95.8 Est GFR (Non-Af Amer) 82.7 BUN/Creatinine Ratio 57.5 H Glucose 98 POC Glucose 98 101 H Calcium 7.1 L Phosphorus 2.4 L Magnesium 1.5 L 04/25/21 04/25/21 06:26 12:19 Sodium Potassium Chloride Carbon Dioxide Anion Gap BUN Creatinine Est Cr Clr Drug Dosing Est GFR ( Amer) Est GFR (Non-Af Amer) BUN/Creatinine Ratio Glucose POC Glucose 91 93 Calcium Phosphorus Magnesium Medications Administered Current Inpatient Medications Acetaminophen (Acetaminophen 325 Mg Tab) 650 mg PO Q4H PRN PRN Reason: Pain or Fever Stop: 05/08/21 05:51 Albuterol (Albuterol Hfa 8 Gm Inhaler) 2 puffs INH Q4R PRN PRN Reason: shortness of breath/wheezing Stop: 05/22/21 07:29 Last Admin: 04/23/21 22:55 Dose: 2 puffs Documented by: Dextrose (Dextrose 50% 50 Ml Syringe) 25 - 50 ml IV UD PRN; Protocol PRN Reason: Hypoglycemia Protocol Stop: 05/13/21 19:34 Last Admin: 04/21/21 12:35 Dose: 50 ml Documented by: Enoxaparin Sodium (Enoxaparin Inj 40 Mg/0.4 Ml Syr) 40 mg SQ Q12H [facility] Stop: 05/11/21 10:29 Last Admin: 04/25/21 09:34 Dose: 40 mg Documented by: Fluticasone/Vilanterol (Fluticasone/Vilanterol 100/25mcg 14 Puffs/Inhaler) 1 puffs INH DAILY [facility] Stop: 05/08/21 08:59 Last Admin: 04/25/21 09:33 Dose: 1 puffs Documented by: Glucagon (Glucagon For Inj 1 Mg Vial) 1 mg SQ UD PRN; Protocol PRN Reason: Hypoglycemia Protocol Stop: 05/13/21 19:34 Glucose (Glucose 10 Tabs/Tube) 4 - 8 tabs PO UD PRN; Protocol PRN Reason: Hypoglycemia Protocol Stop: 05/13/21 19:34 Glucose (Glucose 40% Gel 15 Gm Tube) 15 - 30 gm PO UD PRN; Protocol PRN Reason: Hypoglycemia Protocol Stop: 05/13/21 19:34 Guaifenesin (Guaifenesin 600 Mg Tabcr) 600 mg PO Q12 [facility] Stop: 05/22/21 08:59 Last Admin: 04/25/21 09:36 Dose: 600 mg Documented by: Heparin Sodium (Beef Lung) (Heparin 10 Unit/Ml 5 Ml Flush) 5 ml FLUSH PRN PRN PRN Reason: Flush Stop: 05/23/21 14:59 Pantoprazole Sodium 40 mg/ (Syringe) 10 mls @ 5 mls/min IV BID [facility] Stop: 05/08/21 05:44 Last Admin: 04/25/21 09:36 Dose: 5 mls/min Documented by: Prochlorperazine 5 mg/ Syringe 5 mls @ 5 mls/min IV Q6H PRN PRN Reason: Nausea not relieved by Zofran Stop: 05/13/21 21:38 Last Admin: 04/14/21 20:51 Dose: 5 mls/min Documented by: Thiamine HCl 100 mg/ Syringe 10 mls @ 2 mls/min IV QAM [facility] Stop: 05/16/21 13:59 Last Admin: 04/25/21 09:36 Dose: 2 mls/min Documented by: Dextrose (D10w) 1,000 mls @ 0 mls/hr IV .Q0M PRN PRN Reason: protocol (see label comments) Stop: 05/17/21 12:12 Amino Acids/Dextrose 1,080 ml/ (Nutrition (Parenteral)) 1,080 mls @ 45 mls/hr IV .Q24H FABIAN; Protocol Stop: 04/25/21 15:59 Last Admin: 04/24/21 16:23 Dose: 45 mls/hr Documented by: Amino Acids/Dextrose 1,073 ml/ (Nutrition (Parenteral)) 1,073 mls @ 44.7 mls/hr IV .Q24H FABIAN; Protocol Stop: 04/26/21 15:59 Miscellaneous (Carbohydrates For Hypoglycemia ) 15 - 30 gm PO UD PRN PRN Reason: Hypoglycemia Protocol Stop: 05/13/21 19:34 Last Admin: 04/21/21 11:58 Dose: 15 gm Documented by: Miscellaneous Information (Tpn/Ppn Consult Pharmacy) 1 ea N/A UD PRN PRN Reason: Consult Stop: 05/15/21 07:59 Ondansetron HCl (Ondansetron Inj 2 Mg/Ml 2 Ml Vial) 4 mg IV Q4H PRN PRN Reason: Nausea Stop: 05/13/21 21:38 Last Admin: 04/15/21 13:10 Dose: 4 mg Documented by: Polyethylene Glycol (Polyethylene (Miralax) 17 Gm Pack) 17 gm PO DAILY PRN PRN Reason: Constipation Stop: 05/08/21 05:51 Prednisone (Prednisone 10 Mg Tablet) 10 mg PO DAILY [facility] Stop: 05/08/21 08:59 Last Admin: 12/25/21 08:42 Dose: 10 mg Documented by: Prednisone (Prednisone 10 Mg Tablet) 30 mg PO DAILY [facility] Stop: 04/28/21 08:59 Last Admin: 04/25/21 09:35 Dose: 30 mg Documented by: Prednisone (Prednisone 20 Mg Tab) 20 mg PO DAILY [facility] Stop: 05/01/21 08:59 Prednisone (Prednisone 20 Mg Tab) 20 mg PO BID [facility] Stop: 04/26/21 08:59 Last Admin: 04/25/21 09:36 Dose: Not Given Documented by: Tramadol HCl (Tramadol Hcl 50 Mg Tablet) 50 mg PO DAILY PRN PRN Reason: Pain Stop: 05/08/21 05:51 Triamcinolone Acetonide (Triamcinolone Acet Nasal [place] 10.8ml Btl) 2 sprays FAISAL DAILY [facility] Stop: 05/18/21 08:59 Last Admin: 04/25/21 09:34 Dose: 2 sprays Documented by: PG Care Time/CCT Total # of Minutes Spent Total Time Spent with Patient: Total time spent is greater than 50% in coordination of care (as documented) at patient's floor/unit and/or counseling patient: Coding Level of Care Code 34861 Subseq Hosp Care Lvl 2 Diagnoses Partial obstruction of small intestine K56.600 SARS-CoV-2 positive U07.1 Acute hypotension I95.9 Hypoglycemia E16.2 Elevated troponin R77.8 DVT prophylaxis Z29.9
[2021-04-25] MEDS ORDERED: [UNRECOGNIZED DRUG - OTHER] IV SCH (16:00)
[2021-04-25] MEDS ORDERED: CENTRAL TPN IV SCH (16:00)
[2021-04-25] MEDS ORDERED: AMINO ACID 8% IV SCH (16:00)
[2021-04-26 06:46] LABS: Alanine Aminotransferase 49 (12-78); Albumin Level 1.2 gm/dl (3.4-5.0); Aspartate Aminotransferase 44 U/L (15-37); BUN Creatinine Ratio 69.6 (10-20); Blood Urea Nitrogen 47 mg/dl (7-18); Calcium 7.2 mg/dl (8.5-10.1); Carbon Dioxide 28 mmol/L (21-32); Chloride 110 mmol/L (98-107); Est GFR (African American) 103.9 ml/min; Est GFR (Non-African American) 89.7 ml/min; Glucose 94 mg/dl (70-99); Magnesium 2.3 mg/dl (1.8-2.4); Sodium 139 mmol/L (136-145)
[2021-04-26 06:48] LABS: Alkaline Phosphatase 81 U/L (45-117); Bilirubin Direct < 0.1 mg/dl (0-0.2); Bilirubin,Total 0.2 mg/dl (0.2-1); Phosphorus 2.6 mg/dl (2.5-4.9); Total Protein 4.3 gm/dl (6.4-8.2)
[2021-04-26] MEDS: THIAMINE HCL 100 MG in SYRINGE 9 ML IV SCH (09:00)
[2021-04-26] MEDS: FLUTICASONE/VILANTEROL 100/25MCG 14 PUFFS/INHALER INH SCH (09:00)
[2021-04-26] MEDS: ENOXAPARIN INJ 40 MG/0.4 ML SYR SQ SCH ×2 (09:01→20:55)
[2021-04-26] MEDS: predniSONE 10 MG TABLET PO SCH (09:01)
[2021-04-26] MEDS: guaiFENesin 600 MG TABCR PO SCH ×2 (09:01→20:53)
[2021-04-26] MEDS: TRIAMCINOLONE ACET NASAL SPRAY 10.8ML BTL NAE SCH (09:01)
[2021-04-26] MEDS: PANTOprazole 40 MG in SYRINGE 0 ML IV SCH ×2 (09:01→20:54)
[2021-04-26] MEDS ORDERED: AMINO ACID 8% IV SCH (16:00)
[2021-04-26] MEDS ORDERED: CENTRAL TPN IV SCH (16:00)
[2021-04-26] MEDS ORDERED: CLINOLIPID 20% IV FAT EMULSION 250 ML IV SCH (16:00)
[2021-04-26] MEDS ORDERED: [UNRECOGNIZED DRUG - OTHER] IV SCH (16:00)
--- NOTE | 2021-04-26 21:06 | Hospitalist Progress Note ---
Date of Service April 26, 2021 Assessment & Plan (1) Partial obstruction of small intestine: Plan: Ashia Ca is a 70 yo female with PMHx of prior SBO s/p ex lap for lysis of adhesions, PE on anticoagulation, mixed connective tissue disorder, and pneumatosis intestinalis who was admitted to [facility] on 04/07/21 with weakness and vomiting, found to have partial SBO on CT. Partial obstruction of small intestine, improved, then worsened Recent admission - had exploratory laparotomy on 01/29/21, with lysis of adhesion. Record review of outpatient gen surg visit 03/15/21 notes that patient was at risk for having additional bowel obstructions due to her extensive jejunal disease. States that "If admitted to the hospital again with similar symptoms would do everything possible apart from surgery including long- term TPN if necessary." Also states that patient "likely would not tolerate a bowel resection of her diseased bowel because of the extent of the disease and risk for short bowel syndrome." CT abdomen and pelvis 04/07/21: evidence of high-grade partial small bowel obstruction. Received Zosyn q8h from 04/08 to 04/10 for empiric coverage; discontinued Zosyn 04/10. Repeated KUB 04/15, showing continued small bowel obstruction. However bowel movements are occurring suggesting that the obstruction is improving. - Gastroenterology consulted: poor surgical candidate; continue conservative therapy, PPI, MiraLax. Signed off. - Tolerating diet (low fiber) well, but not likely getting in goal calorie intake PICC line placed, on TPN now, tolerating she is not eating much of anything, dealing with hypoglycemia frequently - Nutrition following: appreciate insight, recommendations - Will require close nutrition follow-up once discharged Severe Protein Calorie Malnutrition - Nutrition consulted. TPN ongoing with supplemental diet, but not eating much the past two days Scleroderma - Continue home prednisone at doses aforementioned. Home dose is 10mg. - No acute needs TAB -- noted earlier during admission. Resolved with rehydration. (2) SARS-CoV-2 positive: Plan: COVID-19 -- in setting of dyspnea, cough - Clinically reporting dyspnea and cough beginning on 04/19 after the patient has been hospitalized since 09/05/2020 - Work-up as follows: - Patient is vaccinated against COVID-19 x 3 - Interval development of L-sided opacities throughout admission on CXR - Labs initially revealing of thrombocytopenia / leukopenia with lymphopenia -- Procal negative - COVID-19 RT-PCR test returned positive 04/21 - Respiratory status stable. on 1L, has a weak cough, sputum in back of throat, constantly clearing lacks strength to give strong cough - Mucinex b.i.d., Flutter valve b.i.d., Albuterol p.r.n. (3) Acute hypotension: Plan: Initial thought was possible adrenal insufficiency in the setting of chronic prednisone therapy for scleroderma - Patient chronically on prednisone 10mg daily in setting of scleroderma -A.m. cortisol from 04/22 is appropriate - Treat empirically by bumping home prednisone dose to (beginning 04/22): 40mg x 3 days --> 30 mg x 3 days --> 20mg x 3 days --> home dose (10mg daily) - If worsening symptoms, would opt for IV hydrocortisone or dexamethasone if COVID-19 worsens BP stable (4) Hypoglycemia: Plan: Intermittent Hypoglycemia -- low again today - Responded well to 500cc bolus of D5W NS x 2 - Occurring despite increasing PO intake and PPN - no clear association pre-/post-prandially - Concern this may represent developing adrenal insufficiency in setting of COVID-19 - No h/o DM. No insulin orders. - Monitor BSGs q6h (5) Elevated troponin: Plan: Elevated Troponin -- noted on admission - Peaked at 0.248 on 04/07, asymptomatic through that time - TTE without evidence of RMWAs - Likely secondary to demand ischemia (6) DVT prophylaxis: Plan: DVT -- despite chronic anticoagulation for previous PE, subtherapeutic (1.9) on admission - RLE Doppler (04/09): DVT in common femoral with extension to superficial venous system - Subtherapeutic INR on admission. Hold home warfarin given this and outpatient fluctuations - Initiate Lovenox 40mg b.i.d. --> opt to continue this at discharge and consider transition back to oral agent as outpatient Plan: Code Status: Full code Admission and Anticipated Discharge Date Admission Date: April 07, 2021 Subjective patient is very fatigued and weak, says she has not gotten out of bed in a few days she is not eating great, wants something different to eat, asked her what she would want, she said pizza her albumin is low at 1.7, Cr is stable, electrolytes stable she is on 3L NC today, has a weak cough, rattle in back of her throat no distress at all or increased work of breathing Review of Systems Review of Systems: All systems reviewed & are unremarkable except as noted in Subjective Constitutional: + fatigue and + weakness Respiratory: + cough and + dyspnea on exertion Cardiovascular: + edema Physical Exam Physical Exam: General: well developed, thin, no acute distress, comfortable Neck: supple, trachea midline, normal thyroid Lungs: clear to auscultation bilaterally, normal respiratory effort, no accessory muscle use, no distress Heart: regular S1 and S2, no murmur, peripheral pulses normal, capillary refill normal, 2+ edema Abdomen: soft, NT, ND, + BS, no hepatomegaly, normal to percussion Extremities: normal in appearance, no cyanosis, no petechiae, strength is 5/5 bilaterally Neuro: awake, cooperative, moves all extremities, no focal motor deficits, CN II-XII intact, sensation in extremities intact, normal speech Skin: warm, dry, no rash, normal turgor Psych: Awake, alert oriented x 3, flat affect Results & Data Results & Data ([facility]) Vital Signs (Past 12 Hours) Vital Signs Temp Pulse Pulse Resp BP Pulse Ox 04/26/21 20:00 36.4 C L 64 18 107/71 96 04/26/21 16:40 36.5 C 63 24 109/66 97 04/26/21 15:05 85 04/26/21 12:49 36.2 C L 67 24 118/76 96 04/26/21 12:00 36.8 C 75 18 114/68 92 Laboratory Results Laboratory Results - last 24 hr 04/26/21 04/26/21 04/26/21 05:24 05:24 07:37 Sodium 139 Potassium 4.0 Chloride 110 H Carbon Dioxide 28 Anion Gap 1.0 L BUN 47 H Creatinine 0.67 Est Cr Clr Drug Dosing 67.0 Est GFR ( Amer) 103.9 Est GFR (Non-Af Amer) 89.7 BUN/Creatinine Ratio 69.6 H Glucose 94 POC Glucose 71 Calcium 7.2 L Phosphorus 2.6 Magnesium 2.3 Total Bilirubin 0.2 Direct Bilirubin < 0.1 AST 44 H ALT 49 Alkaline Phosphatase 81 Total Protein 4.3 L Albumin 1.2 L Triglycerides 188 H 04/26/21 04/26/21 04/26/21 11:08 11:08 16:20 Sodium Potassium Chloride Carbon Dioxide Anion Gap BUN Creatinine Est Cr Clr Drug Dosing Est GFR ( Amer) Est GFR (Non-Af Amer) BUN/Creatinine Ratio Glucose POC Glucose 58 L* 65 L* 73 Calcium Phosphorus Magnesium Total Bilirubin Direct Bilirubin AST ALT Alkaline Phosphatase Total Protein Albumin Triglycerides Medications Administered Current Inpatient Medications Acetaminophen (Acetaminophen 325 Mg Tab) 650 mg PO Q4H PRN PRN Reason: Pain or Fever Stop: 05/08/21 05:51 Albuterol (Albuterol Hfa 8 Gm Inhaler) 2 puffs INH Q4R PRN PRN Reason: shortness of breath/wheezing Stop: 05/22/21 07:29 Last Admin: 04/23/21 22:55 Dose: 2 puffs Documented by: Dextrose (Dextrose 50% 50 Ml Syringe) 25 - 50 ml IV UD PRN; Protocol PRN Reason: Hypoglycemia Protocol Stop: 05/13/21 19:34 Last Admin: 04/21/21 12:35 Dose: 50 ml Documented by: Enoxaparin Sodium (Enoxaparin Inj 40 Mg/0.4 Ml Syr) 40 mg SQ Q12H [facility] Stop: 05/11/21 10:29 Last Admin: 04/26/21 20:55 Dose: 40 mg Documented by: Fluticasone/Vilanterol (Fluticasone/Vilanterol 100/25mcg 14 Puffs/Inhaler) 1 puffs INH DAILY [facility] Stop: 05/08/21 08:59 Last Admin: 04/26/21 09:00 Dose: 1 puffs Documented by: Glucagon (Glucagon For Inj 1 Mg Vial) 1 mg SQ UD PRN; Protocol PRN Reason: Hypoglycemia Protocol Stop: 05/13/21 19:34 Glucose (Glucose 10 Tabs/Tube) 4 - 8 tabs PO UD PRN; Protocol PRN Reason: Hypoglycemia Protocol Stop: 05/13/21 19:34 Glucose (Glucose 40% Gel 15 Gm Tube) 15 - 30 gm PO UD PRN; Protocol PRN Reason: Hypoglycemia Protocol Stop: 05/13/21 19:34 Guaifenesin (Guaifenesin 600 Mg Tabcr) 600 mg PO Q12 [facility] Stop: 05/22/21 08:59 Last Admin: 04/26/21 20:53 Dose: 600 mg Documented by: Heparin Sodium (Beef Lung) (Heparin 10 Unit/Ml 5 Ml Flush) 5 ml FLUSH PRN PRN PRN Reason: Flush Stop: 05/23/21 14:59 Pantoprazole Sodium 40 mg/ (Syringe) 10 mls @ 5 mls/min IV BID [facility] Stop: 04/26/21 23:00 Last Admin: 04/26/21 20:54 Dose: 5 mls/min Documented by: Prochlorperazine 5 mg/ Syringe 5 mls @ 5 mls/min IV Q6H PRN PRN Reason: Nausea not relieved by Zofran Stop: 05/13/21 21:38 Last Admin: 04/14/21 20:51 Dose: 5 mls/min Documented by: Thiamine HCl 100 mg/ Syringe 10 mls @ 2 mls/min IV QAM [facility] Stop: 05/16/21 13:59 Last Admin: 04/26/21 09:00 Dose: 2 mls/min Documented by: Dextrose (D10w) 1,000 mls @ 0 mls/hr IV .Q0M PRN PRN Reason: protocol (see label comments) Stop: 05/17/21 12:12 Amino Acids/Dextrose 1,073 ml/ (Nutrition (Parenteral)) 1,073 mls @ 44.7 mls/hr IV .Q24H [facility]; Protocol Stop: 04/27/21 15:59 Last Admin: 04/26/21 17:10 Dose: 44.7 mls/hr Documented by: Fat Emulsion-[place] Oil/Soybean Oil (Clinolipid 20% Iv Fat Emulsion) 250 mls @ 41.667 mls/hr IV .Q6H [facility] Stop: 04/26/21 21:59 Last Admin: 04/26/21 17:09 Dose: 41.7 mls/hr Documented by: Miscellaneous (Carbohydrates For Hypoglycemia ) 15 - 30 gm PO UD PRN PRN Reason: Hypoglycemia Protocol Stop: 05/13/21 19:34 Last Admin: 04/21/21 11:58 Dose: 15 gm Documented by: Miscellaneous (Stop Clinolipid) 1 ea N/A ONE ONE Stop: 04/26/21 22:01 Miscellaneous Information (Tpn/Ppn Consult Pharmacy) 1 ea N/A UD PRN PRN Reason: Consult Stop: 05/15/21 07:59 Ondansetron HCl (Ondansetron Inj 2 Mg/Ml 2 Ml Vial) 4 mg IV Q4H PRN PRN Reason: Nausea Stop: 05/13/21 21:38 Last Admin: 04/15/21 13:10 Dose: 4 mg Documented by: Pantoprazole Sodium (Pantoprazole 40 Mg Tab) 40 mg PO BID [facility]; Protocol Stop: 05/27/21 08:59 Polyethylene Glycol (Polyethylene (Miralax) 17 Gm Pack) 17 gm PO DAILY PRN PRN Reason: Constipation Stop: 05/08/21 05:51 Prednisone (Prednisone 10 Mg Tablet) 10 mg PO DAILY [facility] Stop: 05/08/21 08:59 Last Admin: 04/21/21 08:42 Dose: 10 mg Documented by: Prednisone (Prednisone 10 Mg Tablet) 30 mg PO DAILY [facility] Stop: 04/28/21 08:59 Last Admin: 04/26/21 09:01 Dose: 30 mg Documented by: Prednisone (Prednisone 20 Mg Tab) 20 mg PO DAILY [facility] Stop: 05/01/21 08:59 Tramadol HCl (Tramadol Hcl 50 Mg Tablet) 50 mg PO DAILY PRN PRN Reason: Pain Stop: 05/08/21 05:51 Triamcinolone Acetonide (Triamcinolone Acet Nasal [place] 10.8ml Btl) 2 sprays FAISAL DAILY [facility] Stop: 05/18/21 08:59 Last Admin: 04/26/21 09:01 Dose: 2 sprays Documented by: PG Care Time/CCT Total # of Minutes Spent Total Time Spent with Patient: Total time spent is greater than 50% in coordination of care (as documented) at patient's floor/unit and/or counseling patient: Coding Level of Care Code 23651 Subseq Hosp Care Lvl 2 Diagnoses Partial obstruction of small intestine K56.600 SARS-CoV-2 positive U07.1 Acute hypotension I95.9 Hypoglycemia E16.2 Elevated troponin R77.8 DVT prophylaxis Z29.9
[2021-04-26] MEDS ORDERED: STOP CLINOLIPID ONE (22:00)
[2021-04-27] MEDS: CARBOHYDRATES FOR HYPOGLYCEMIA PO PRN ×2 (06:00→11:51)
[2021-04-27] MEDS: DEXTROSE 50% 50 ML SYRINGE IV PRN (06:20)
[2021-04-27] MEDS: ENOXAPARIN INJ 40 MG/0.4 ML SYR SQ SCH ×2 (09:12→20:52)
[2021-04-27] MEDS: predniSONE 10 MG TABLET PO SCH (09:13)
[2021-04-27] MEDS: PANTOprazole 40 MG TAB PO SCH ×2 (09:13→20:53)
[2021-04-27] MEDS: guaiFENesin 600 MG TABCR PO SCH ×2 (09:13→20:52)
[2021-04-27] MEDS: THIAMINE HCL 100 MG in SYRINGE 9 ML IV SCH (09:13)
[2021-04-27] MEDS: TRIAMCINOLONE ACET NASAL SPRAY 10.8ML BTL NAE SCH (09:14)
[2021-04-27] MEDS: FLUTICASONE/VILANTEROL 100/25MCG 14 PUFFS/INHALER INH SCH (09:14)
[2021-04-27 11:00] LABS: BUN Creatinine Ratio 70.1 (10-20); Calcium 7.4 mg/dl (8.5-10.1); Creatinine Clr Calc Pharmacy 62.3 ml/min; Est GFR (African American) 102.5 ml/min; Est GFR (Non-African American) 88.4 ml/min; Magnesium 1.9 mg/dl (1.8-2.4); Phosphorus 3.2 mg/dl (2.5-4.9); Potassium 4.7 mmol/L (3.5-5.1)
[2021-04-27] MEDS ORDERED: OPTIRAY 320 100ml IV ONE (14:04)
--- NOTE | 2021-04-27 14:23 | CT Scan Report ---
CT abd pelvis IV con only CLINICAL HISTORY: follow up small bowel obstruction COMPARISON STUDY: 04/07/2021 CT DOSE: 552.68 mGy.cm TECHNIQUE: Standard CT of the Abdomen and Pelvis was performed with IV contrast. A dose lowering uli hnique was utilized adhering to the principles of ALARA. Contrast Volume: Optiray 320, 94 ml. The patient did not receive oral contrast. FINDINGS: Compared to the previous examination, there is diffuse third spacing of fluid present. Fuentes ed anasarca is present. There is also diffuse edema of the intra-abdominal fat.. Lung base: There has been interval development of moderate-sized bilateral pleural effusions, left gr eater than right with compressive atelectasis/collapse involving the left lower lobe. Abdominal cavity and bowel: Compared to the previous examination, there is diffuse third spacing of f luid present. Marked anasarca is present. There is also diffuse edema of the intra-abdominal fat.. Mi ld abdominal ascites is present. Additionally, there is diffuse edema present involving the gastric mucosa. There has been interval decompression of dilated small bowel. Small bowel loops remain fluid-filled a nd mildly dilated with air-fluid levels present. There is no evidence for ischemic bowel or pneumatos is. There is no free air. There is also fluid-filled loops of colon. No significant formed fecal mate rial is present. There is sigmoid diverticulosis with mucosal thickening of the sigmoid colon. Liver: There is homogeneous attenuation of the liver parenchyma. There is no evidence for enhancing m ass lesion. Spleen: There is homogeneous attenuation of the splenic parenchyma. There is no enhancing mass lesion . Pancreas: There is homogeneous attenuation of the pancreatic parenchyma. There is no evidence for mas s lesion or peripancreatic fluid collection. Gall Bladder: Surgical clips are present previous cholecystectomy. Adrenal glands: The adrenal glands are normal in size and attenuation. There is no evidence for enhan cing mass lesion. Kidneys: There is homogeneous attenuation of the renal parenchyma bilaterally. There is no evidence f or renal calculus or hydronephrosis. There is no evidence for enhancing mass. Bladder: The bladder is within normal limits with no evidence for focal mass, calculus or diverticulu m. : There is no evidence for pelvic mass or adenopathy. There is no evidence for pelvic ascites. Vasculature: There is no evidence for aneurysmal dilatation of the abdominal aorta. Osseous structures: There is no acute osseous pathology. Degenerative changes are seen in the spine. IMPRESSION: 1. Compared to the previous examination, there has been interval partial decompression of the small b owel with mildly dilated, fluid-filled loops of small bowel again seen with fluid levels present. 2. Fluid is now seen throughout the colon as well with sigmoid diverticulosis and mucosal thickening of the sigmoid colon. There is no evidence for diverticulitis. 3. Marked third spacing of fluid is also demonstrated with marked anasarca and diffuse edema of the i ntraperitoneal fat. 4. This also been interval development of moderate-sized bilateral pleural effusions, left greater th an right with left lower lobe atelectasis/collapse. 5. No evidence for ischemic bowel or pneumatosis. No free air. 6. Mild abdominal ascites is also present. ACT 112: Negative or not required by law. Electronically signed by: Porter Sandy M.D. 04/27/2021 2:22 PM
[2021-04-27] MEDS ORDERED: [UNRECOGNIZED DRUG - OTHER] IV SCH (16:00)
[2021-04-27] MEDS ORDERED: AMINO ACID 8% IV SCH (16:00)
[2021-04-27] MEDS ORDERED: CENTRAL TPN IV SCH (16:00)
[2021-04-27] MEDS ORDERED: CLINOLIPID 20% IV FAT EMULSION 250 ML IV SCH (16:00)
--- NOTE | 2021-04-27 17:37 | Hospitalist Progress Note ---
Date of Service April 27, 2021 Assessment & Plan (1) Cachexia: Plan: suspect it is due to recurrent bowel obstructions, inflammatory condition with bowels she is barely eating, albumin low at 1.2 despite full strength TPN that should meet her caloric needs she is 3rd spacing fluid with anasarca, pleural effusions, lower extremity edema incredibly weak, can barely cough, confined to bed because she is so frail concerned that she will continue to get worse as TPN is not helping, she does not have an obstruction on imaging or anything inflammatory that can be fixed could try some Albumin but that is extremely short acting will continue to discuss with patient (2) Partial obstruction of small intestine: Plan: Ashia Ca is a 70 yo female with PMHx of prior SBO s/p ex lap for lysis of adhesions, PE on anticoagulation, mixed connective tissue disorder, and pneumatosis intestinalis who was admitted to [facility] on 04/07/21 with weakness and vomiting, found to have partial SBO on CT. Partial obstruction of small intestine, improved, then worsened Recent admission - had exploratory laparotomy on 01/29/21, with lysis of adhesion. Record review of outpatient gen surg visit 03/15/21 notes that patient was at risk for having additional bowel obstructions due to her extensive jejunal disease. States that "If admitted to the hospital again with similar symptoms would do everything possible apart from surgery including long- term TPN if necessary." Also states that patient "likely would not tolerate a bowel resection of her diseased bowel because of the extent of the disease and risk for short bowel syndrome." CT abdomen and pelvis 04/07/21: evidence of high-grade partial small bowel obstruction. Received Zosyn q8h from 04/08 to 04/10 for empiric coverage; discontinued Zosyn 04/10. Repeated KUB 04/15, showing continued small bowel obstruction. However bowel movements are occurring suggesting that the obstruction is improving. - Gastroenterology consulted: poor surgical candidate; continue conservative therapy, PPI, MiraLax. Signed off. she had 2 opinions from GI, first was from [facility] but she wanted 2nd opinion from [facility] [place] - Tolerating some clears but no significant oral intake for days and prior to that she had NG tube for obstruction in reality she has not eaten well for weeks, since admission PICC line placed, on TPN now, tolerating Severe Protein Calorie Malnutrition - Nutrition consulted. TPN ongoing with supplemental diet, but not eating much the past 4 days Scleroderma - Continue home prednisone, tapering back to home dose of 10mg - No acute needs TAB -- noted earlier during admission. Resolved with rehydration. (3) SARS-CoV-2 positive: Plan: COVID-19 -- in setting of dyspnea, cough - Clinically reporting dyspnea and cough beginning on 04/19 after the patient has been hospitalized since 09/05/2020 - Work-up as follows: - Patient is vaccinated against COVID-19 x 3 - Interval development of L-sided opacities throughout admission on CXR - Labs initially revealing of thrombocytopenia / leukopenia with lymphopenia -- Procal negative - COVID-19 RT-PCR test returned positive 04/21 - Respiratory status stable. on 2L, has a weak cough, sputum in back of throat, constantly clearing lacks strength to give strong cough - Mucinex b.i.d., Flutter valve b.i.d., Albuterol p.r.n. doubt that hypoxia is due to COVID 19, she has pleural effusions that are limiting inspiration and has a wet cough (4) Acute hypotension: Plan: Initial thought was possible adrenal insufficiency in the setting of chronic prednisone therapy for scleroderma - Patient chronically on prednisone 10mg daily in setting of scleroderma -A.m. cortisol from 04/22 is appropriate - Treat empirically by bumping home prednisone dose to (beginning 04/22): 40mg x 3 days --> 30 mg x 3 days --> 20mg x 3 days --> home dose (10mg daily) BP stable (5) Hypoglycemia: Plan: Intermittent Hypoglycemia -- low again today - Responded well to 500cc bolus of D5W NS x 2 - Occurring despite increasing PO intake and PPN - no clear association pre-/post-prandially - Concern this may represent developing adrenal insufficiency in setting of COVID-19 - No h/o DM. No insulin orders. - Monitor BSGs q6h (6) Elevated troponin: Plan: Elevated Troponin -- noted on admission - Peaked at 0.248 on 04/07, asymptomatic through that time - TTE without evidence of RMWAs - Likely secondary to demand ischemia (7) DVT prophylaxis: Plan: DVT -- despite chronic anticoagulation for previous PE, subtherapeutic (1.9) on admission - RLE Doppler (04/09): DVT in common femoral with extension to superficial venous system - Subtherapeutic INR on admission. Hold home warfarin given this and outpatient fluctuations - Initiate Lovenox 40mg b.i.d. --> opt to continue this at discharge and consider transition back to oral agent as outpatient Plan: Code Status: Full code Admission and Anticipated Discharge Date Admission Date: April 07, 2021 Subjective patient not having a good day, she is barely eating, sugars low again, improved with replacement on TPN, electrolytes and Cr are stable she got pizza but could not touch it today no nausea, no abdominal pain CT abdomen/pelvis today: anasarca, pleural effusions, less dilation in small bowels discussed with patient that things are not going well, her albumin is low despite TPN she is 3rd spacing fluid everywhere, she is getting weaker she says she just wants to go home, that's all she wants discussed that she is too weak, would need 24/7 care at home, cannot get OOB to chair concerned she has failure to thrive will have further goals of care discussion with her tomorrow check labs in AM Review of Systems Review of Systems: All systems reviewed & are unremarkable except as noted in Subjective Constitutional: + fatigue and + weakness Respiratory: + cough and + dyspnea Cardiovascular: + edema Gastrointestinal: + early satiety Psychiatric: + depression Physical Exam Physical Exam: General: well developed, thin, no acute distress, comfortable Neck: supple, trachea midline, normal thyroid Lungs: clear to auscultation bilaterally, normal respiratory effort, no accessory muscle use, no distress Heart: regular S1 and S2, no murmur, peripheral pulses normal, capillary refill normal, 2+ edema Abdomen: soft, NT, ND, + BS, no hepatomegaly, normal to percussion Extremities: normal in appearance, no cyanosis, no petechiae, strength is 5/5 bilaterally Neuro: awake, cooperative, moves all extremities, no focal motor deficits, CN II-XII intact, sensation in extremities intact, normal speech Skin: warm, dry, no rash, normal turgor Psych: Awake, alert oriented x 3, flat affect Results & Data Results & Data ([facility]) Vital Signs (Past 12 Hours) Vital Signs Temp Pulse Pulse Resp BP Pulse Ox 04/27/21 15:20 36.6 C 105 H 20 96/69 L 04/27/21 15:00 86 04/27/21 11:21 36.3 C L 67 20 113/44 L 91 04/27/21 08:10 36.4 C L 58 L 20 99/56 L 96 04/27/21 07:12 89 04/27/21 06:59 70 Laboratory Results Laboratory Results - last 24 hr 04/27/21 04/27/21 04/27/21 00:41 05:53 05:56 Sodium Potassium Chloride Carbon Dioxide Anion Gap BUN Creatinine Est Cr Clr Drug Dosing Est GFR ( Amer) Est GFR (Non-Af Amer) BUN/Creatinine Ratio Glucose POC Glucose 77 60 L* 56 L* Calcium Phosphorus Magnesium 04/27/21 04/27/21 04/27/21 06:18 06:39 09:51 Sodium 142 Potassium 4.7 D Chloride 112 H Carbon Dioxide 23 Anion Gap 7.0 BUN 49 H Creatinine 0.70 Est Cr Clr Drug Dosing 62.3 Est GFR ( Amer) 102.5 Est GFR (Non-Af Amer) 88.4 BUN/Creatinine Ratio 70.1 H Glucose 102 H POC Glucose 35 L* 73 Calcium 7.4 L Phosphorus 3.2 Magnesium 1.9 04/27/21 04/27/21 04/27/21 11:40 11:41 12:10 Sodium Potassium Chloride Carbon Dioxide Anion Gap BUN Creatinine Est Cr Clr Drug Dosing Est GFR ( Amer) Est GFR (Non-Af Amer) BUN/Creatinine Ratio Glucose POC Glucose 54 L* 43 L* 78 Calcium Phosphorus Magnesium Diagnostic Findings CT abdomen/pelvis IMPRESSION: 1. Compared to the previous examination, there has been interval partial decompression of the small bowel with mildly dilated, fluid-filled loops of small bowel again seen with fluid levels present. 2. Fluid is now seen throughout the colon as well with sigmoid diverticulosis and mucosal thickening of the sigmoid colon. There is no evidence for diverticulitis. 3. Marked third spacing of fluid is also demonstrated with marked anasarca and diffuse edema of the intraperitoneal fat. 4. This also been interval development of moderate-sized bilateral pleural effusions, left greater than right with left lower lobe atelectasis/collapse. 5. No evidence for ischemic bowel or pneumatosis. No free air. 6. Mild abdominal ascites is also present. PG Care Time/CCT Total # of Minutes Spent Total Time Spent with Patient: Total time spent is greater than 50% in coordination of care (as documented) at patient's floor/unit and/or counseling patient: Coding Level of Care Code 66957 Subseq Hosp Care Lvl 2 Diagnoses Partial obstruction of small intestine K56.600 SARS-CoV-2 positive U07.1 Acute hypotension I95.9 Hypoglycemia E16.2 Elevated troponin R77.8 DVT prophylaxis Z29.9 Cachexia R64
[2021-04-27] MEDS ORDERED: STOP CLINOLIPID ONE (22:00)
[2021-04-28 07:43] LABS: BUN Creatinine Ratio 79.6 (10-20); Calcium 7.5 mg/dl (8.5-10.1); Creatinine Clr Calc Pharmacy 70.5 ml/min; Est GFR (African American) 106.6 ml/min; Potassium 4.8 mmol/L (3.5-5.1)
[2021-04-28] MEDS: FLUTICASONE/VILANTEROL 100/25MCG 14 PUFFS/INHALER INH SCH (08:29)
[2021-04-28] MEDS: guaiFENesin 600 MG TABCR PO SCH ×2 (08:30→20:39)
[2021-04-28] MEDS: TRIAMCINOLONE ACET NASAL SPRAY 10.8ML BTL NAE SCH (08:30)
[2021-04-28] MEDS: PANTOprazole 40 MG TAB PO SCH ×2 (08:30→20:39)
[2021-04-28] MEDS: ENOXAPARIN INJ 40 MG/0.4 ML SYR SQ SCH ×2 (08:31→22:08)
[2021-04-28] MEDS ORDERED: predniSONE 20 MG TAB PO SCH (09:00)
[2021-04-28] MEDS: THIAMINE HCL 100 MG in SYRINGE 9 ML IV SCH (09:44)
--- NOTE | 2021-04-28 14:44 | Hospitalist Progress Note ---
Date of Service April 28, 2021 Assessment & Plan (1) Cachexia: Plan: suspect it is due to recurrent bowel obstructions, inflammatory condition with bowels she is barely eating, albumin low at 1.2 despite full strength TPN that should meet her caloric needs repeat albumin tomorrow, will discuss trying Coresafe with tube feeds and limiting TPN, see if her bowels can absorb nutrition she is 3rd spacing fluid with anasarca, pleural effusions, lower extremity edema incredibly weak, can barely cough, confined to bed because she is so frail concerned that she will continue to get worse as TPN is not helping, she does not have an obstruction on imaging or anything inflammatory that can be fixed could try some Albumin but that is extremely short acting will continue to discuss with patient updated her sister today (2) Partial obstruction of small intestine: Plan: Ashia Ca is a 70 yo female with PMHx of prior SBO s/p ex lap for lysis of adhesions, PE on anticoagulation, mixed connective tissue disorder, and pneumatosis intestinalis who was admitted to [facility] on 04/07/21 with weakness and vomiting, found to have partial SBO on CT. Partial obstruction of small intestine, improved, then worsened Recent admission - had exploratory laparotomy on 01/29/21, with lysis of adhesion. Record review of outpatient gen surg visit 03/15/21 notes that patient was at risk for having additional bowel obstructions due to her extensive jejunal disease. States that "If admitted to the hospital again with similar symptoms would do everything possible apart from surgery including long- term TPN if necessary." Also states that patient "likely would not tolerate a bowel resection of her diseased bowel because of the extent of the disease and risk for short bowel syndrome." CT abdomen and pelvis 04/07/21: evidence of high-grade partial small bowel obstruction. Received Zosyn q8h from 04/08 to 04/10 for empiric coverage; discontinued Zosyn 04/10. Repeated KUB 04/15, show ing continued small bowel obstruction. However bowel movements are occurring suggesting that the obstruction is improving. - Gastroenterology consulted: poor surgical candidate; continue conservative therapy, PPI, MiraLax. Signed off. she had 2 opinions from GI, first was from [facility] but she wanted 2nd opinion from [facility] [place] - Tolerating some clears but no significant oral intake for days and prior to that she had NG tube for obstruction in reality she has not eaten well for weeks, since admission PICC line placed, on TPN now, tolerating Severe Protein Calorie Malnutrition - Nutrition consulted. TPN ongoing with supplemental diet, but not eating much the past 4 days Scleroderma - Continue home prednisone, tapering back to home dose of 10mg - No acute needs TAB -- noted earlier during admission. Resolved with rehydration. (3) SARS-CoV-2 positive: Plan: COVID-19 -- in setting of dyspnea, cough - Clinically reporting dyspnea and cough beginning on 04/19 after the patient has been hospitalized since 09/05/2020 - Work-up as follows: - Patient is vaccinated against COVID-19 x 3 - Interval development of L-sided opacities throughout admission on CXR - Labs initially revealing of thrombocytopenia / leukopenia with lymphopenia -- Procal negative - COVID-19 RT-PCR test returned positive 04/21 - Respiratory status stable. on 2L, has a weak cough, sputum in back of throat, constantly clearing lacks strength to give strong cough - Mucinex b.i.d., Flutter valve b.i.d., Albuterol p.r.n. doubt that hypoxia is due to COVID 19, she has pleural effusions that are limiting inspiration and has a wet cough (4) Acute hypotension: Plan: Initial thought was possible adrenal insufficiency in the setting of chronic prednisone therapy for scleroderma - Patient chronically on prednisone 10mg daily in setting of scleroderma -A.m. cortisol from 04/22 is appropriate - Treat empirically by bumping home prednisone dose to (beginning 04/22): 40mg x 3 days --> 30 mg x 3 days --> 20mg x 3 days --> home dose (10mg daily) BP stable (5) Hypoglycemia: Plan: Intermittent Hypoglycemia -- low again today - Responded well to 500cc bolus of D5W NS x 2 - Occurring despite increasing PO intake and PPN - no clear association pre-/post-prandially - Concern this may represent developing adrenal insufficiency in setting of COVID-19 - No h/o DM. No insulin orders. - Monitor BSGs q6h (6) Elevated troponin: Plan: Elevated Troponin -- noted on admission - Peaked at 0.248 on 04/07, asymptomatic through that time - TTE without evidence of RMWAs - Likely secondary to demand ischemia (7) DVT prophylaxis: Plan: DVT -- despite chronic anticoagulation for previous PE, subtherapeutic (1.9) on admission - RLE Doppler (04/09): DVT in common femoral with extension to superficial venous system - Subtherapeutic INR on admission. Hold home warfarin given this and outpatient fluctuations - Initiate Lovenox 40mg b.i.d. --> opt to continue this at discharge and consider transition back to oral agent as outpatient Plan: Code Status: Full code Admission and Anticipated Discharge Date Admission Date: April 07, 2021 Subjective patient not doing well today, she feels terrible, so weak, wet cough, rattle in back of throat she was just on the bedpan, she is moving her bowels, loose, she had vagal response with HR down to 40's reviewed CT from yesterday: no obstruction, small bowels are dilated with fluid levels, colon with fluid levels, no pneumotosis intestinalis, no inflammatory changes she has 3rd spacing with anasarca, pleural effusions I asked if she could eat more, she got upset, says that the food here is "terrible, I cannot eat it" I explained we are giving TPN with amino acids but her body is not building up the albumin, I have seen this cycle before there is no clear treatment that solves it, patients tend to gradually get worse, we can continue TPN but best option is oral intake we could try Coresafe and tube feeds if she is interested, unsure it would help she has no strength at all, cannot cough up phlegm in back of her throat Cr and electrolytes are stable today with TPN long updated provided to her sister over the phone she understands that the patient is getting worse instead of better, nutrition is getting bad weaker, edematous, rattle in the back of her throat Review of Systems Review of Systems: All systems reviewed & are unremarkable except as noted in Subjective Constitutional: + fatigue, + weakness, + anorexia and + weight loss; no fever Respiratory: + cough (rattle in throat) and + dyspnea Gastrointestinal: + early satiety (no appetite) and + diarrhea/loose stools; no abdominal pain, no nausea, no vomiting and no constipation Musculoskeletal: + muscle weakness and + muscle atrophy Physical Exam Physical Exam: General: well developed, thin, no acute distress, comfortable, cachectic Neck: supple, trachea midline, normal thyroid Lungs: clear to auscultation bilaterally, normal respiratory effort, no accessory muscle use, no distress, no breath sounds in bases Heart: tachycardic, regular S1 and S2, no murmur, peripheral pulses normal, capillary refill normal, 3+ edema Abdomen: soft, NT, ND, + BS, no hepatomegaly, normal to percussion, edematous Extremities: muscle atrophy, no cyanosis, no petechiae, strength is greatly diminished Neuro: awake, cooperative, moves all extremities, no focal motor deficits, CN II-XII intact, sensation in extremities intact, normal speech Skin: warm, dry, no rash, normal turgor Psych: Awake, alert oriented x 3, tearful affect, very depressed Results & Data Results & Data ([facility]) Vital Signs (Past 12 Hours) Vital Signs Temp Pulse Pulse Resp BP Pulse Ox 04/28/21 12:12 36.4 C L 109 H 22 116/77 92 04/28/21 08:15 36.3 C L 109 H 22 138/82 92 04/28/21 08:00 99 H 04/28/21 03:28 36.8 C 120 H 24 130/88 93 Laboratory Results Laboratory Results - last 24 hr 04/27/21 04/27/21 04/28/21 18:17 23:50 05:52 Sodium Potassium Chloride Carbon Dioxide Anion Gap BUN Creatinine Est Cr Clr Drug Dosing Est GFR ( Amer) Est GFR (Non-Af Amer) BUN/Creatinine Ratio Glucose POC Glucose 135 H 100 H 77 Calcium Phosphorus Magnesium 04/28/21 04/28/21 06:29 11:27 Sodium 142 Potassium 4.8 Chloride 111 H Carbon Dioxide 26 Anion Gap 5.0 BUN 49 H Creatinine 0.62 Est Cr Clr Drug Dosing 70.5 Est GFR ( Amer) 106.6 Est GFR (Non-Af Amer) 92.0 BUN/Creatinine Ratio 79.6 H Glucose 82 POC Glucose 74 Calcium 7.5 L Phosphorus 3.0 Magnesium 2.0 Medications Administered Current Inpatient Medications Acetaminophen (Acetaminophen 325 Mg Tab) 650 mg PO Q4H PRN PRN Reason: Pain or Fever Stop: 05/08/21 05:51 Albuterol (Albuterol Hfa 8 Gm Inhaler) 2 puffs INH Q4R PRN PRN Reason: shortness of breath/wheezing Stop: 05/22/21 07:29 Last Admin: 04/23/21 22:55 Dose: 2 puffs Documented by: Dextrose (Dextrose 50% 50 Ml Syringe) 25 - 50 ml IV UD PRN; Protocol PRN Reason: Hypoglycemia Protocol Stop: 05/13/21 19:34 Last Admin: 04/27/21 06:20 Dose: 50 ml Documented by: Enoxaparin Sodium (Enoxaparin Inj 40 Mg/0.4 Ml Syr) 40 mg SQ Q12H FABIAN Stop: 05/11/21 10:29 Last Admin: 04/28/21 08:31 Dose: 40 mg Documented by: Fluticasone/Vilanterol (Fluticasone/Vilanterol 100/25mcg 14 Puffs/Inhaler) 1 puffs INH DAILY FABIAN Stop: 05/08/21 08:59 Last Admin: 04/28/21 08:29 Dose: 1 puffs Documented by: Glucagon (Glucagon For Inj 1 Mg Vial) 1 mg SQ UD PRN; Protocol PRN Reason: Hypoglycemia Protocol Stop: 05/13/21 19:34 Glucose (Glucose 10 Tabs/Tube) 4 - 8 tabs PO UD PRN; Protocol PRN Reason: Hypoglycemia Protocol Stop: 05/13/21 19:34 Glucose (Glucose 40% Gel 15 Gm Tube) 15 - 30 gm PO UD PRN; Protocol PRN Reason: Hypoglycemia Protocol Stop: 05/13/21 19:34 Guaifenesin (Guaifenesin 600 Mg Tabcr) 600 mg PO Q12 FABIAN Stop: 05/22/21 08:59 Last Admin: 04/28/21 08:30 Dose: 600 mg Documented by: Heparin Sodium (Beef Lung) (Heparin 10 Unit/Ml 5 Ml Flush) 5 ml FLUSH PRN PRN PRN Reason: Flush Stop: 05/23/21 14:59 Prochlorperazine 5 mg/ Syringe 5 mls @ 5 mls/min IV Q6H PRN PRN Reason: Nausea not relieved by Zofran Stop: 05/13/21 21:38 Last Admin: 04/14/21 20:51 Dose: 5 mls/min Documented by: Thiamine HCl 100 mg/ Syringe 10 mls @ 2 mls/min IV QAM FABIAN Stop: 05/16/21 13:59 Last Admin: 04/28/21 09:44 Dose: 2 mls/min Documented by: Dextrose (D10w) 1,000 mls @ 0 mls/hr IV .Q0M PRN PRN Reason: protocol (see label comments) Stop: 05/17/21 12:12 Amino Acids/Dextrose 1,050 ml/ (Nutrition (Parenteral)) 1,050 mls @ 43.75 mls/hr IV .Q24H [facility]; Protocol Stop: 04/28/21 15:59 Last Admin: 04/27/21 16:04 Dose: 43.8 mls/hr Documented by: Amino Acids/Dextrose 1,045 ml/ (Nutrition (Parenteral)) 1,045 mls @ 43.54 mls/hr IV .Q24H [facility]; Protocol Stop: 04/29/21 15:59 Fat Emulsion-[place] Oil/Soybean Oil (Clinolipid 20% Iv Fat Emulsion) 250 mls @ 41.667 mls/hr IV .Q6H [facility] Stop: 04/28/21 21:59 Miscellaneous (Carbohydrates For Hypoglycemia ) 15 - 30 gm PO UD PRN PRN Reason: Hypoglycemia Protocol Stop: 05/13/21 19:34 Last Admin: 04/27/21 11:51 Dose: 30 gm Documented by: Miscellaneous (Stop Clinolipid) 1 ea N/A 2200 ONE Stop: 04/28/21 22:01 Miscellaneous Information (Tpn/Ppn Consult Pharmacy) 1 ea N/A UD PRN PRN Reason: Consult Stop: 05/15/21 07:59 Ondansetron HCl (Ondansetron Inj 2 Mg/Ml 2 Ml Vial) 4 mg IV Q4H PRN PRN Reason: Nausea Stop: 05/13/21 21:38 Last Admin: 04/15/21 13:10 Dose: 4 mg Documented by: Pantoprazole Sodium (Pantoprazole 40 Mg Tab) 40 mg PO BID [facility]; Protocol Stop: 05/27/21 08:59 Last Admin: 04/28/21 08:30 Dose: 40 mg Documented by: Polyethylene Glycol (Polyethylene (Miralax) 17 Gm Pack) 17 gm PO DAILY PRN PRN Reason: Constipation Stop: 05/08/21 05:51 Prednisone (Prednisone 10 Mg Tablet) 10 mg PO DAILY [facility] Stop: 05/08/21 08:59 Last Admin: 12/25/21 08:42 Dose: 10 mg Documented by: Prednisone (Prednisone 20 Mg Tab) 20 mg PO DAILY [facility] Stop: 05/01/21 08:59 Last Admin: 04/28/21 08:30 Dose: 20 mg Documented by: Tramadol HCl (Tramadol Hcl 50 Mg Tablet) 50 mg PO DAILY PRN PRN Reason: Pain Stop: 05/08/21 05:51 Triamcinolone Acetonide (Triamcinolone Acet Nasal [place] 10.8ml Btl) 2 sprays FAISAL DAILY [facility] Stop: 05/18/21 08:59 Last Admin: 04/28/21 08:30 Dose: 2 sprays Documented by: PG Care Time/CCT Total # of Minutes Spent Total Time Spent: 36 Total Time Spent with Patient: Total time spent is greater than 50% in coordination of care (as documented) at patient's floor/unit and/or counseling patient: 15 minutes speaking with patient 10 minutes speaking with sister over the phone 11 minutes on chart, documentation Coding Level of Care Code 57172 Subseq Hosp Care Lvl 3 (25 - SIGNIFICANT, SEPARATELY IDENTIFIABLE ) Diagnoses Cachexia R64 Partial obstruction of small intestine K56.600 SARS-CoV-2 positive U07.1 Acute hypotension I95.9 Hypoglycemia E16.2 Elevated troponin R77.8 DVT prophylaxis Z29.9
[2021-04-28] MEDS ORDERED: CLINOLIPID 20% IV FAT EMULSION 250 ML IV SCH (16:00)
[2021-04-28] MEDS: CENTRAL TPN IV SCH (16:44)
[2021-04-28] MEDS: [UNRECOGNIZED DRUG - OTHER] IV SCH (16:44)
[2021-04-28] MEDS: AMINO ACID 8% IV SCH (16:44)
[2021-04-28] MEDS ORDERED: STOP CLINOLIPID ONE (22:00)
[2021-04-28] MEDS: ALBUTEROL HFA 8 GM INHALER INH PRN (23:33)
--- NOTE | 2021-04-28 23:41 | XRay Report ---
XR chest 1V portable HISTORY: 70 years-old Female increased O2 req, dyspnea acute shortness of breath COMPARISON: Chest radiograph 04/22/2021 TECHNIQUE: Portable AP view the chest FINDINGS: The patient is rotated. Cardiomegaly. A right-sided PICC is noted with distal tip projects over the r ight atrium. Moderate left pleural effusion with left basilar consolidation, progressed from prior. M ild pulmonary vascular congestion. Small right pleural effusion. No pneumothorax. Degenerative change s of the shoulders and spine. IMPRESSION: 1. Moderate left pleural effusion with left basilar consolidation has progressed from prior. 2. Small right pleural effusion. ACT 112: Negative or not required by law. The above report was generated using voice recognition software. It may contain grammatical, syntax o r spelling errors. Electronically signed by: Berry Pollock M.D. 04/28/2021 11:39 PM
[2021-04-28] MEDS ORDERED: FUROSEMIDE 40 MG/4 ML VIAL IV ONE (23:47)
--- NOTE | 2021-04-28 23:59 | Communication Note ---
Date of Service: April 28, 2021 notified by nursing of acutely increasing O2 requirements, up from 2 to 6L of NC after patient found to be satting in 60s on 2L. Chart reviewed -- medically complex individual with COVID19, malnutrition, recurrent SBOs on TPN. CXR showing increased pulmonary edema compared to 04/22. EKG showing junctional? tachycardia, rate ~110. does not appear to be afib, flutter, mat, or have any ST segment changes. albuterol HFA treatment ordered. 50 gm albumin with 40 mg IV lasix ordered to help mobilize pulmonary edema. Patient only has 1 picc line functioning currently; will pause TPN while albumin is running for 2 hours then restart.
[2021-04-29] MEDS: ALBUMIN 25% 100 mL 25 GM/100 ML VIAL IV SCH ×2 (00:11→01:07)
[2021-04-29 07:00] LABS: Albumin Level 2.1 gm/dl (3.4-5.0); Calcium 7.8 mg/dl (8.5-10.1); Creatinine Clr Calc Pharmacy 63.6 ml/min; Est GFR (African American) 106.1 ml/min; Est GFR (Non-African American) 91.5 ml/min; Potassium 4.1 mmol/L (3.5-5.1)
[2021-04-29 07:02] LABS: Albumin Globulin Ratio 0.8 (0.9-2); Bilirubin,Total 0.2 mg/dl (0.2-1); Globulin 2.5 gm/dl (2.5-4.0); Phosphorus 3.2 mg/dl (2.5-4.9); Total Protein 4.6 gm/dl (6.4-8.2)
[2021-04-29 07:08] LABS: Folate (Folic Acid) 11.3 ng/ml (>5.38)
[2021-04-29] MEDS ORDERED: FUROSEMIDE 40 MG/4 ML VIAL IV ONE ×3 (07:56→17:19)
[2021-04-29] MEDS ORDERED: ALBUMIN 25% 100 mL 25 GM/100 ML VIAL IV ONE ×2 (08:15→14:00)
[2021-04-29] MEDS: dexAMETHasone 6 MG in SYRINGE 0 ML IV SCH (09:43)
[2021-04-29] MEDS: THIAMINE HCL 100 MG in SYRINGE 9 ML IV SCH (09:44)
[2021-04-29] MEDS: FLUTICASONE/VILANTEROL 100/25MCG 14 PUFFS/INHALER INH SCH (09:44)
[2021-04-29] MEDS: guaiFENesin 600 MG TABCR PO SCH ×3 (09:44→22:17)
[2021-04-29] MEDS: PANTOprazole 40 MG TAB PO SCH ×3 (09:45→22:18)
[2021-04-29] MEDS: ENOXAPARIN INJ 40 MG/0.4 ML SYR SQ SCH ×2 (09:46→22:17)
[2021-04-29] MEDS: TRIAMCINOLONE ACET NASAL SPRAY 10.8ML BTL NAE SCH (09:46)
--- NOTE | 2021-04-29 13:56 | Hospitalist Progress Note ---
Date of Service April 29, 2021 Assessment & Plan (1) Acute respiratory failure with hypoxemia: Plan: started subtly on 04/27 on 2L, progressed on 04/28/21 in evening into 04/29/21 with needing 6L mask due to pleural effusion but also profound weakness, profound malnutrition tried to remove fluid with Albumin and Lasix three times today, some response with diuresis but breathing worse up to 13L mask now skip conversation with patient and her sister, she is dying from severe malnutrition, 3rd spacing of fluid, muscle wasting she does not want intubated, understands it would not solve her problems changed to DNI, DNR today with her sister at the bedside if her breathing gets really bad would initiate comfort measures with morphine (2) Pleural effusion: Plan: large on the left, small on right now impacting her breathing cannot take off fluid with Lasix, albumin as there is little to no oncotic pressure could consider thoracentesis but patient is dying from malnutrition, procedure would not fix that (3) Cachexia: Plan: suspect it is due to recurrent bowel obstructions, inflammatory condition with bowels she is barely eating, albumin low at 1.2 despite full strength TPN that should meet her caloric needs albumin up to 2.1 today but that was right after she got 50gm of albumin IV in middle of the night, likely this lab value is skewed discussed trying Coresafe with tube feeds and limiting TPN, but now with respiratory status worsening I do not think Coresafe is possible she is 3rd spacing fluid with anasarca, pleural effusions, lower extremity edema incredibly weak, can barely cough, confined to bed because she is so frail concerned that she will continue to get worse as TPN is not helping, she does not have an obstruction on imaging or anything inflammatory that can be fixed changed to DNR/DNI today, will continue TPN fear that her breathing will get worse, will likely need comfort measures (4) Partial obstruction of small intestine: Plan: Ashia Ca is a 70 yo female with PMHx of prior SBO s/p ex lap for lysis of adhesions, PE on anticoagulation, mixed connective tissue disorder, and pneumatosis intestinalis who was admitted to [facility] on 04/07/21 with weakness and vomiting, found to have partial SBO on CT. Partial obstruction of small intestine, improved, then worsened Recent admission - had exploratory laparotomy on 01/29/21, with lysis of adhesion. Record review of outpatient gen surg visit 03/15/21 notes that patient was at risk for having additional bowel obstructions due to her extensive jejunal disease. States that "If admitted to the hospital again with similar symptoms would do everything possible apart from surgery including long- term TPN if necessary." Also states that patient "likely would not tolerate a bowel resection of her diseased bowel because of the extent of the disease and risk for short bowel syndrome." CT abdomen and pelvis 04/07/21: evidence of high-grade partial small bowel obstruction. Received Zosyn q8h from 04/08 to 04/10 for empiric coverage; discontinued Zosyn 04/10. Repeated KUB 04/15, showing continued small bowel obstruction. However bowel movements are occurring suggesting that the obstruction is improving. - Gastroenterology consulted: poor surgical candidate; continue conservative therapy, PPI, MiraLax. Signed off. she had 2 opinions from GI, first was from [facility] but she wanted 2nd opinion from [facility] [place] both GI services recommended TPN to supplement oral nutrition PICC line placed, on TPN now, tolerating for several days but albumin going down, not eating anything substantial Severe Protein Calorie Malnutrition - Nutrition consulted. TPN ongoing with supplemental diet, but not eating much the past 5 days, prior to that she had NG tube due to SBO really no significant nutrition for some time Scleroderma could be contributing to GI malabsorption - No acute needs TAB -- noted earlier during admission. Resolved with rehydration. (5) SARS-CoV-2 positive: Plan: COVID-19 -- in setting of dyspnea, cough - Clinically reporting dyspnea and cough beginning on 04/19 after the patient has been hospitalized since 09/05/2020 - Work-up as follows: - Patient is vaccinated against COVID-19 x 3 - Interval development of L-sided opacities throughout admission on CXR - Labs initially revealing of thrombocytopenia / leukopenia with lymphopenia -- Procal negative - COVID-19 RT-PCR test returned positive 04/21 doubt that hypoxia is due to COVID 19, she has pleural effusions that are limiting inspiration and has a wet cough, CXR last night without any infiltrates changed Prednisone to dexamethasone since her hypoxemia got worse but don't think it will change anything (6) Acute hypotension: Plan: Initial thought was possible adrenal insufficiency in the setting of chronic prednisone therapy for scleroderma - Patient chronically on prednisone 10mg daily in setting of scleroderma -A.m. cortisol from 04/22 is appropriate, repeat today pending (7) Hypoglycemia: Plan: Intermittent Hypoglycemia -- - Responded well to 500cc bolus of D5W NS x 2 - Occurring despite increasing PO intake and PPN - no clear association pre-/post-prandially - Concern this may represent developing adrenal insufficiency in setting of COVID-19 - No h/o DM. No insulin orders. - Monitor BSGs q6h (8) Elevated troponin: Plan: Elevated Troponin -- noted on admission - Peaked at 0.248 on 04/07, asymptomatic through that time - TTE without evidence of RMWAs - Likely secondary to demand ischemia (9) DVT prophylaxis: Plan: DVT -- despite chronic anticoagulation for previous PE, subtherapeutic (1.9) on admission - RLE Doppler (04/09): DVT in common femoral with extension to superficial venous system - Subtherapeutic INR on admission. Hold home warfarin given this and outpatient fluctuations - Initiate Lovenox 40mg b.i.d. Plan: Code Status: DNR/DNI, changed on 04/29/21 anticipate her needing comfort care soon, once breathing deteriorates further Admission and Anticipated Discharge Date Admission Date: April 07, 2021 Subjective patient now requiring 6L mask, was more hypoxic and dyspneic overnight resident gave her Albumin and Lasix, with decent response but no change in breathing and still on 6L CXR with enlarging left pleural effusion, atelectasis, no infiltrates patient struggling to breathe, she is very frail appearing reviewed labs, Albumin is 2.1 but unsure if that is accurate as she got 50gm of albumin last night before the AM blood draw albumin was 1.2 two days ago, doubt it would go up by almost 1 in that time frame patient still with no appetite, cannot eat, denies nausea or abdominal pain I called her sister, she came in to the bedside to visit with her we discussed that she is decompensating due to profound malnutrition, no oncotic pressure, anasarca she cannot breath because of pleural effusions, atelectasis and lacks the strength to breath faster and deeper had a realistic conversation about goals of care, that if her breathing gets worse or her heart stops, it is due to natural dying process from her terrible condition the patient said "what's the point of intubating or doing compressions" her sister wants her to keep fighting but also respects her wishes I told her that I would change her to DNR, DNI and the patient agreed with that outside the room, I told her sister that I am not sure of a time frame, likely depends on her breathing which is getting worse I am limited in how much fluid I can remove due to low albumin, fluid stuck in interstitium and Lasix likely to not touch pleural effusion could consider thoracentesis but fluid would just accumulate, really an unnecessary procedure her sister understands that she is dying Review of Systems Review of Systems: All systems reviewed & are unremarkable except as noted in Subjective Constitutional: + fatigue and + weakness Respiratory: + cough, + dyspnea and + dyspnea on exertion Cardiovascular: + edema Gastrointestinal: + early satiety Musculoskeletal: + muscle weakness Physical Exam Physical Exam: General: well developed, thin, cachectic, in respiratory distress Neck: supple, trachea midline, normal thyroid Lungs: + rhonchi, + tachypnea, + accessory muscle use, in distress, no breath sounds in bases Heart: tachycardic, regular S1 and S2, no murmur, peripheral pulses normal, capillary refill normal, 3+ edema Abdomen: soft, NT, ND, + BS, no hepatomegaly, normal to percussion, edematous Extremities: muscle atrophy, temporal muscle wasting, no cyanosis, no petechiae, strength is greatly diminished Neuro: awake, cooperative, moves all extremities, no focal motor deficits, CN II-XII intact, sensation in extremities intact, normal speech Skin: warm, dry, no rash, normal turgor Psych: Awake, alert oriented x 3, tearful affect, very depressed and scared about dying Results & Data Results & Data ([facility]) Vital Signs (Past 12 Hours) Vital Signs Temp Pulse Pulse Pulse Resp BP Pulse Ox 04/29/21 12:13 36.4 C L 117 H 22 125/83 97 04/29/21 08:00 122 H 04/29/21 07:00 36.1 C L 121 H 30 H 119/79 99 04/29/21 03:40 96 04/29/21 03:17 36.2 C L 98 H 28 H 132/91 94 Laboratory Results Laboratory Results - last 24 hr 0104/28/21 04/29/21 16:32 19:38 00:31 Sodium Potassium Chloride Carbon Dioxide Anion Gap BUN Creatinine Est Cr Clr Drug Dosing Est GFR ( Amer) Est GFR (Non-Af Amer) BUN/Creatinine Ratio Glucose POC Glucose 120 H 110 H 79 Calcium Phosphorus Magnesium Total Bilirubin AST ALT Alkaline Phosphatase Total Protein Albumin Globulin Albumin/Globulin Ratio Vitamin B12 Folate Cortisol AM Sample 04/29/21 04/29/21 04/29/21 02:06 05:47 05:48 Sodium 141 Potassium 4.1 Chloride 109 H Carbon Dioxide 30 Anion Gap 2.0 L BUN 52 H Creatinine 0.63 Est Cr Clr Drug Dosing 63.6 Est GFR ( Amer) 106.1 Est GFR (Non-Af Amer) 91.5 BUN/Creatinine Ratio 83.0 H Glucose 92 POC Glucose 76 100 H Calcium 7.8 L Phosphorus 3.2 Magnesium 2.0 Total Bilirubin 0.2 AST 34 ALT 46 Alkaline Phosphatase 75 Total Protein 4.6 L Albumin 2.1 L Globulin 2.5 Albumin/Globulin Ratio 0.8 L Vitamin B12 Folate Cortisol AM Sample 04/29/21 04/29/21 04/29/21 05:48 05:48 07:16 Sodium Potassium Chloride Carbon Dioxide Anion Gap BUN Creatinine Est Cr Clr Drug Dosing Est GFR ( Amer) Est GFR (Non-Af Amer) BUN/Creatinine Ratio Glucose POC Glucose 85 Calcium Phosphorus Magnesium Total Bilirubin AST ALT Alkaline Phosphatase Total Protein Albumin Globulin Albumin/Globulin Ratio Vitamin B12 614 Folate 11.30 Cortisol AM Sample Pending 04/29/21 11:58 Sodium Potassium Chloride Carbon Dioxide Anion Gap BUN Creatinine Est Cr Clr Drug Dosing Est GFR ( Amer) Est GFR (Non-Af Amer) BUN/Creatinine Ratio Glucose POC Glucose 87 Calcium Phosphorus Magnesium Total Bilirubin AST ALT Alkaline Phosphatase Total Protein Albumin Globulin Albumin/Globulin Ratio Vitamin B12 Folate Cortisol AM Sample Medications Administered Current Inpatient Medications Acetaminophen (Acetaminophen 325 Mg Tab) 650 mg PO Q4H PRN PRN Reason: Pain or Fever Stop: 05/08/21 05:51 Albuterol (Albuterol Hfa 8 Gm Inhaler) 2 puffs INH Q4R PRN PRN Reason: shortness of breath/wheezing Stop: 05/22/21 07:29 Last Admin: 04/28/21 23:33 Dose: 2 puffs Documented by: Dextrose (Dextrose 50% 50 Ml Syringe) 25 - 50 ml IV UD PRN; Protocol PRN Reason: Hypoglycemia Protocol Stop: 05/13/21 19:34 Last Admin: 04/27/21 06:20 Dose: 50 ml Documented by: Enoxaparin Sodium (Enoxaparin Inj 40 Mg/0.4 Ml Syr) 40 mg SQ Q12H FABIAN Stop: 05/11/21 10:29 Last Admin: 04/29/21 09:46 Dose: 40 mg Documented by: Fluticasone/Vilanterol (Fluticasone/Vilanterol 100/25mcg 14 Puffs/Inhaler) 1 puffs INH DAILY FABIAN Stop: 05/08/21 08:59 Last Admin: 04/29/21 09:44 Dose: 1 puffs Documented by: Furosemide (Furosemide 40 Mg/4 Ml Vial) 40 mg IV ONE ONE Stop: 04/29/21 13:54 Glucagon (Glucagon For Inj 1 Mg Vial) 1 mg SQ UD PRN; Protocol PRN Reason: Hypoglycemia Protocol Stop: 05/13/21 19:34 Glucose (Glucose 10 Tabs/Tube) 4 - 8 tabs PO UD PRN; Protocol PRN Reason: Hypoglycemia Protocol Stop: 05/13/21 19:34 Glucose (Glucose 40% Gel 15 Gm Tube) 15 - 30 gm PO UD PRN; Protocol PRN Reason: Hypoglycemia Protocol Stop: 05/13/21 19:34 Guaifenesin (Guaifenesin 600 Mg Tabcr) 600 mg PO Q12 FABIAN Stop: 05/22/21 08:59 Last Admin: 04/29/21 09:44 Dose: 600 mg Documented by: Heparin Sodium (Beef Lung) (Heparin 10 Unit/Ml 5 Ml Flush) 5 ml FLUSH PRN PRN PRN Reason: Flush Stop: 05/23/21 14:59 Prochlorperazine 5 mg/ Syringe 5 mls @ 5 mls/min IV Q6H PRN PRN Reason: Nausea not relieved by Zofran Stop: 05/13/21 21:38 Last Admin: 04/14/21 20:51 Dose: 5 mls/min Documented by: Thiamine HCl 100 mg/ Syringe 10 mls @ 2 mls/min IV QAM FABIAN Stop: 05/16/21 13:59 Last Admin: 04/29/21 09:44 Dose: 2 mls/min Documented by: Dextrose (D10w) 1,000 mls @ 0 mls/hr IV .Q0M PRN PRN Reason: protocol (see label comments) Stop: 05/17/21 12:12 Amino Acids/Dextrose 1,045 ml/ (Nutrition (Parenteral)) 1,045 mls @ 52 mls/hr IV .Q20H6M FABIAN; Protocol Stop: 04/29/21 16:00 Last Infusion: 04/29/21 05:37 Dose: 52 mls/hr Documented by: Dexamethasone 6 mg/ Syringe 1.5 mls @ 1 mls/min IV Q24H FABIAN Stop: 05/29/21 08:29 Last Admin: 04/29/21 09:43 Dose: 1 mls/min Documented by: Amino Acids/Dextrose 1,045 ml/ (Nutrition (Parenteral)) 1,045 mls @ 43.54 mls/hr IV .Q24H FABIAN; Protocol Stop: 04/30/21 15:59 Fat Emulsion-[place] Oil/Soybean Oil (Clinolipid 20% Iv Fat Emulsion) 250 mls @ 41.667 mls/hr IV .Q6H FABIAN Stop: 04/29/21 21:59 Albumin Human (Albumin 25% 100 Ml) 25 gm in 100 mls @ 50 mls/hr IV ONE ONE Stop: 04/29/21 15:52 Miscellaneous (Carbohydrates For Hypoglycemia ) 15 - 30 gm PO UD PRN PRN Reason: Hypoglycemia Protocol Stop: 05/13/21 19:34 Last Admin: 04/27/21 11:51 Dose: 30 gm Documented by: Miscellaneous (Stop Clinolipid) 1 ea N/A ONE ONE Stop: 04/29/21 22:01 Miscellaneous Information (Tpn/Ppn Consult Pharmacy) 1 ea N/A UD PRN PRN Reason: Consult Stop: 05/15/21 07:59 Ondansetron HCl (Ondansetron Inj 2 Mg/Ml 2 Ml Vial) 4 mg IV Q4H PRN PRN Reason: Nausea Stop: 05/13/21 21:38 Last Admin: 04/15/21 13:10 Dose: 4 mg Documented by: Pantoprazole Sodium (Pantoprazole 40 Mg Tab) 40 mg PO BID ON LICENSE OF [facility]; Protocol Stop: 05/27/21 08:59 Last Admin: 04/29/21 09:45 Dose: 40 mg Documented by: Polyethylene Glycol (Polyethylene (Miralax) 17 Gm Pack) 17 gm PO DAILY PRN PRN Reason: Constipation Stop: 05/08/21 05:51 Prednisone (Prednisone 10 Mg Tablet) 10 mg PO DAILY FABIAN Stop: 05/08/21 08:59 Last Admin: 04/21/21 08:42 Dose: 10 mg Documented by: Tramadol HCl (Tramadol Hcl 50 Mg Tablet) 50 mg PO DAILY PRN PRN Reason: Pain Stop: 05/08/21 05:51 Triamcinolone Acetonide (Triamcinolone Acet Nasal [place] 10.8ml Btl) 2 sprays FAISAL DAILY ON LICENSE OF [facility] Stop: 05/18/21 08:59 Last Admin: 04/29/21 09:46 Dose: 2 sprays Documented by: PG Care Time/CCT Total # of Minutes Spent Total Time Spent: 64 Total Time Spent with Patient: Total time spent is greater than 50% in coordination of care (as documented) at patient's floor/unit and/or counseling patient: Prolonged Care Time Prolonged Care Time: Yes Total Prolonged Care Time: 34 64 minutes spent 24 minutes on chart, documentation, reviewing imaging and labs, looking at prior notes spent 40 minutes combined with patient on three visits, visited with her sister at the bedside Coding Level of Care Code 47141 Subseq Hosp Care Lvl 3 (25 - SIGNIFICANT, SEPARATELY IDENTIFIABLE ) Diagnoses Cachexia R64 Partial obstruction of small intestine K56.600 SARS-CoV-2 positive U07.1 Acute hypotension I95.9 Hypoglycemia E16.2 Elevated troponin R77.8 DVT prophylaxis Z29.9 Acute respiratory failure with hypoxemia J96.01 Pleural effusion J90 Additional Codes Prolonged Care Time - Prolonged Care Time: Yes ([id number])
[2021-04-29] MEDS ORDERED: [UNRECOGNIZED DRUG - OTHER] IV SCH (16:00)
[2021-04-29] MEDS ORDERED: AMINO ACID 8% IV SCH (16:00)
[2021-04-29] MEDS ORDERED: CLINOLIPID 20% IV FAT EMULSION 250 ML IV SCH (16:00)
[2021-04-29] MEDS ORDERED: CENTRAL TPN IV SCH (16:00)
[2021-04-29] MEDS: [UNRECOGNIZED DRUG - OTHER] IV SCH (18:15)
[2021-04-29] MEDS: AMINO ACID 8% IV SCH (18:15)
[2021-04-29] MEDS: CENTRAL TPN IV SCH (18:15)
[2021-04-29] MEDS: ONDANSETRON INJ 2 MG/ML 2 ML VIAL IV PRN (21:57)
[2021-04-29] MEDS ORDERED: STOP CLINOLIPID ONE (22:00)
[2021-04-29] MEDS ORDERED: LORazepam 0.5 MG/1 ML VIAL IV PRN (22:11)
[2021-04-29 22:58] VITALS: TEMP 97.7
--- NOTE | 2021-04-30 03:29 | Communication Note ---
Date of Service: April 30, 2021 Evaluated patient at bedside after concern from nursing that she was saying she no longer wanted treatment. At bedside, she appears distressed and uncomfortable, working to breath on nasal cannula, calling out for her sister. She recalls having a conversation with Dr. Erwin earlier today regarding code status, and not wanting CPR. She repeatedly says she wants to go home, and goes back and forth between saying she wants and doesn't want IVs and medications. She has refused all of her medications this evening. IV infusing TPN 18/11, but no improvement in clinical status. Bridget appears to understand she is very sick but understandably is scared of dying and wants to be comfortable at home but doesn't want to stop everything. Would likely be a good candidate for home hospice/[employer] with comfort focused medications given active progression of pleural effusions, anasarca and malnutrition. At this time, ativan 0.5mg IV ordered PRN for anxiety as she gets very anxious, tachycardic and tachypneic.
[2021-04-30] MEDS: LORazepam 0.5 MG/1 ML VIAL IV PRN ×2 (03:39→09:27)
[2021-04-30 07:15] LABS: BUN Creatinine Ratio 82.6 (10-20); Calcium 7.9 mg/dl (8.5-10.1); Creatinine Clr Calc Pharmacy 61.1 ml/min; Est GFR (African American) 100.7 ml/min; Est GFR (Non-African American) 86.9 ml/min; Magnesium 1.9 mg/dl (1.8-2.4); Potassium 4.4 mmol/L (3.5-5.1)
[2021-04-30 07:23] LABS: Phosphorus 4.4 mg/dl (2.5-4.9)
--- NOTE | 2021-04-30 07:36 | Electrocardiogram Report ---
Test Reason : Blood Pressure : / mmHG Vent. Rate : 119 BPM Atrial Rate : 119 BPM P-R Int : 186 ms QRS Dur : 052 ms QT Int : 274 ms P-R-T Axes : 098 -53 085 degrees QTc Int : 385 ms Poor data quality, interpretation may be adversely affected Sinus tachycardia Left axis deviation Pulmonary disease pattern Inferior infarct (cited on or before 07-APR-2021) Abnormal ECG When compared with ECG of 07-APR-2021 20:29, Premature atrial complexes are no longer Present Right bundle branch block is no longer Present Confirmed by Hank Mckeon ([id number]) on 04/30/2021 7:35:56 AM Referred By: REFERRED SELF Confirmed By:Hank Mckeon
[2021-04-30 07:38] VITALS: PULSE 128
[2021-04-30] MEDS: ONDANSETRON INJ 2 MG/ML 2 ML VIAL IV PRN (07:42)
[2021-04-30] MEDS: THIAMINE HCL 100 MG in SYRINGE 9 ML IV SCH (07:44)
[2021-04-30] MEDS: dexAMETHasone 6 MG in SYRINGE 0 ML IV SCH (07:44)
[2021-04-30] MEDS: guaiFENesin 600 MG TABCR PO SCH (07:46)
[2021-04-30] MEDS: PANTOprazole 40 MG TAB PO SCH (07:46)
[2021-04-30] MEDS: ENOXAPARIN INJ 40 MG/0.4 ML SYR SQ SCH (07:47)
[2021-04-30] MEDS: TRIAMCINOLONE ACET NASAL SPRAY 10.8ML BTL NAE SCH (07:47)
[2021-04-30] MEDS: FLUTICASONE/VILANTEROL 100/25MCG 14 PUFFS/INHALER INH SCH (07:49)
[2021-04-30 07:51] VITALS: O2SAT 92
--- NOTE | 2021-04-30 08:47 | Hospitalist Progress Note ---
Date of Service April 30, 2021 Assessment & Plan (1) Need for comfort care: Plan: Patient is significant decline today after discussion with sister patient will be transition to comfort care measures. All treatments and therapeutics are discontinued with exception of medications and treatments guided at patient comfort. Family is allowed to come to visit that is expected this hospital stay (2) Acute respiratory failure with hypoxemia: Plan: started subtly on 04/27 on 2L, progressed on 04/28/21 in evening into 04/29/21 with needing 6L mask due to pleural effusion but also profound weakness, profound malnutrition Dr. Erwin had a skip conversation with patient and her sister, she is dying from severe malnutrition, 3rd spacing of fluid, muscle wasting she does not want intubated, understands it would not solve her problems changed to DNI, DNR initiated comfort measures with morphine (3) Pleural effusion: Plan: large on the left, small on right now impacting her breathing cannot take off fluid with Lasix, albumin as there is little to no oncotic pressure could consider thoracentesis but patient is dying from malnutrition, procedure would not fix that (4) Cachexia: Plan: suspect it is due to recurrent bowel obstructions, inflammatory condition with bowels she was barely eating, albumin low at 1.2 despite full strength TPN that should meet her caloric needs Dr. Erwin previously discussed trying Coresafe with tube feeds and limiting TPN, but now with respiratory status worsening I do not think Coresafe is possible she is 3rd spacing fluid with anasarca, pleural effusions, lower extremity edema incredibly weak, can barely cough, confined to bed because she is so frail concerned that she will continue to get worse as TPN is not helping, she does not have an obstruction on imaging or anything inflammatory that can be fixed changed to DNR/DNI 04/29/21, will start comfort measures and discontinue TPN (5) Partial obstruction of small intestine: Plan: Ashia Ca is a 70 yo female with PMHx of prior SBO s/p ex lap for lysis of adhesions, PE on anticoagulation, mixed connective tissue disorder, and pneumatosis intestinalis who was admitted to [facility] on 04/07/21 with weakness and vomiting, found to have partial SBO on CT. Partial obstruction of small intestine, improved, then worsened Recent admission - had exploratory laparotomy on 01/29/21, with lysis of adhesion. Record review of outpatient gen surg visit 03/15/21 notes that patient was at risk for having additional bowel obstructions due to her extensive jejunal disease. States that "If admitted to the hospital again with similar symptoms would do everything possible apart from surgery including long- term TPN if necessary." Also states that patient "likely would not tolerate a bowel resection of her diseased bowel because of the extent of the disease and risk for short bowel syndrome." CT abdomen and pelvis 04/07/21: evidence of high-grade partial small bowel obstruction. Received Zosyn q8h from 04/08 to 04/10 for empiric coverage; discontinued Zosyn 04/10. Repeated KUB 04/15, showing continued small bowel obstruction. However bowel movements are occurring suggesting that the obstruction is improving. - Gastroenterology consulted: poor surgical candidate; pt has declined and is not transitioned to comfort care 04/30/21 Severe Protein Calorie Malnutrition - Nutrition consulted. TPN ongoing with supplemental diet, but not eating much the past 5 days, prior to that she had NG tube due to SBO really no significant nutrition for some time Scleroderma could be contributing to GI malabsorption - No acute needs TAB -- noted earlier during admission. Resolved with rehydration. (6) SARS-CoV-2 positive: Plan: COVID-19 -- in setting of dyspnea, cough - Clinically reporting dyspnea and cough beginning on 04/19 after the patient has been hospitalized since 09/05/2020 - Work-up as follows: - Patient is vaccinated against COVID-19 x 3 - Interval development of L-sided opacities throughout admission on CXR - Labs initially revealing of thrombocytopenia / leukopenia with lymphopenia -- Procal negative - COVID-19 RT-PCR test returned positive 04/21 (7) Acute hypotension: Plan: Initial thought was possible adrenal insufficiency in the setting of chronic prednisone therapy for scleroderma - Patient chronically on prednisone 10mg daily in setting of scleroderma -A.m. cortisol from 04/22 is appropriate (8) Hypoglycemia: Plan: Intermittent Hypoglycemia -- - Responded well to 500cc bolus of D5W NS x 2 (9) Elevated troponin: Plan: Elevated Troponin -- noted on admission - Peaked at 0.248 on 04/07, asymptomatic through that time - TTE without evidence of RMWAs - Likely secondary to demand ischemia (10) DVT prophylaxis: Plan: DVT -- despite chronic anticoagulation for previous PE, subtherapeutic (1.9) on admission - RLE Doppler (04/09): DVT in common femoral with extension to superficial venous system - Subtherapeutic INR on admission. Hold further anticoagulation as entering into comfort care Plan: Code Status: DNR/DNI, changed on 04/29/21 anticipate the pt dying in the next few days Admission and Anticipated Discharge Date Admission Date: April 07, 2021 Subjective Patient is barely arousable today with agonal respirations and "rattling" breath sounds. I did speak to her sister Chidi and we went to progress towards comfort care measures. Chidi and Jeovanny are likely coming to visit today. I told her is expected but cannot give a time course Review of Systems Review of Systems: Unobtainable due to cognitive status Physical Exam Physical Exam: The patient appeared severe respiratory distress Vital signs as documented. Head exam is normocephalic atraumatic Neck is without JVD, thyromegaly, or carotid bruits. Lungs are coarse bilaterally rhonchorous and gurgling breath sounds Cardiac exam, Rhythm is tachycardic Abdominal exam reveals normal bowel sounds, soft Extremities are 2+ edematous for all extremities Neurologic exam is arouses briefly to voice and falls back to sleep Skin is without bruises or rashes Results & Data Results & Data ([facility]) Vital Signs (Past 12 Hours) Vital Signs Temp Pulse Pulse Pulse Resp BP Pulse Ox 04/30/21 07:50 92 04/30/21 07:37 97.7 F 128 H 19 118/77 86 L 04/29/21 23:57 117 H 04/29/21 22:56 97.7 F 133 H 20 116/78 100 04/29/21 22:27 131 H PG Care Time/CCT Total # of Minutes Spent Total Time Spent with Patient: Total time spent is greater than 50% in coordination of care (as documented) at patient's floor/unit and/or counseling patient: Coding Level of Care Code 04059 Subseq Hosp Care Lvl 3 Diagnoses Acute respiratory failure with hypoxemia J96.01 Pleural effusion J90 Cachexia R64 Partial obstruction of small intestine K56.600 SARS-CoV-2 positive U07.1 Acute hypotension I95.9 Hypoglycemia E16.2 Elevated troponin R77.8 DVT prophylaxis Z29.9 Need for comfort care
[2021-04-30 11:26] VITALS: BP 86/42
[2021-04-30] MEDS: DEXTROSE 50% 50 ML SYRINGE IV PRN ×2 (12:13→12:37)
--- NOTE | 2021-04-30 12:45 | Pharmacy Report ---
PHA: Parenteral Nutrition Con - Date of Service April 30, 2021 - Scope Pharmacy was consulted on 04/17 to manage parenteral nutrition orders for this patient. - Subjective The patient is currently on day [#14] of central parenteral nutrition for SBO - Objective Height: 5 ft 1 in Weight: 57.6 kg Diet: Clear Liquid (low fiber) Intake & Output (24hrs):: Intake & Output 04/28/21 04/29/21 04/30/21 05/01/21 06:59 06:59 06:59 06:59 Intake Total 1824.375 / 6273.658 1838.968 / 2241.968 1078.27 / 1078.27 Output Total 902 / 902 2002 Balance 1820.375 / 3765.387 5596.968 / 1339.968 -924.73 / -924.73 Weight 58.6 kg 57 kg 57.6 kg Laboratory Data (Last 24 Hr):: 04/30/21 05:57 Sodium 142 Potassium 4.4 Chloride 108 H Carbon Dioxide 28 BUN 58 H Creatinine 0.71 Glucose 93 Calcium 7.9 L Phosphorus 4.4 D Magnesium 1.9 Nutrition Assessment:: Please refer to the Notes section of the EMR for the most recent sink maker note. - Plan Patient continues on parenteral nutrition, now at goal with kcals. (Day 5 at goal with Kcals in TPN). Continues with acute respiratory failure/requiring oxygen. For day # 14 of PN administration, the following will be ordered: Macronutrients Amino acids 80 grams/day Dextrose 140 grams/day Lipids 50 grams/day Micronutrients Sodium acetate 50 mEq Potassium phosphate 15 mMol Magnesium sulfate 8.12 mEq Multivitamins 10 mL Trace Elements 1 mL Total volume 1043 mL to be infused over 24 hrs will provide 1296 kcal/day Labs, as indicated, will be ordered per protocol Pharmacy will continue to follow and adjust parenteral nutrition orders on a daily basis. Thank you for allowing us to participate in the care of this patient.
[2021-04-30] MEDS ORDERED: LORazepam 0.5 MG TAB PO PRN (14:20)
[2021-04-30] MEDS ORDERED: ONDANSETRON 4 MG OD TAB SL PRN (14:20)
[2021-04-30] MEDS ORDERED: ONDANSETRON INJ 2 MG/ML 2 ML VIAL IV PRN (14:20)
[2021-04-30] MEDS ORDERED: LORazepam 0.5 MG/1 ML VIAL IV PRN (14:20)
[2021-04-30] MEDS ORDERED: [UNRECOGNIZED DRUG - OTHER] IV SCH (16:00)
[2021-04-30] MEDS ORDERED: AMINO ACID 8% IV SCH (16:00)
[2021-04-30] MEDS ORDERED: CLINOLIPID 20% IV FAT EMULSION 250 ML IV SCH (16:00)
[2021-04-30] MEDS ORDERED: CENTRAL TPN IV SCH (16:00)
[2021-04-30] MEDS: GLYCOPYRROLATE 0.2 MG/ML VIAL IV PRN ×2 (16:43→20:51)
[2021-04-30] MEDS: ATROPINE SULFATE 1% OP SOLN 5 ML BTL SL PRN ×4 (17:54→23:40)
[2021-04-30] MEDS: MoRPHine SULFATE 2 MG/ML CARP IV PRN ×2 (18:52→21:40)
[2021-04-30] MEDS ORDERED: STOP CLINOLIPID ONE (22:00)
[2021-05-01] MEDS: ATROPINE SULFATE 1% OP SOLN 5 ML BTL SL PRN (00:51)
[2021-05-01] MEDS: GLYCOPYRROLATE 0.2 MG/ML VIAL IV PRN (00:53)
[2021-05-01] MEDS: MoRPHine SULFATE 2 MG/ML CARP IV PRN (00:55)
--- NOTE | 2021-05-01 02:06 | Death Pronouncement Note ---
Date of Service May 01, 2021 Pronouncement Note Admission Date Admission Date: April 07, 2021 Date and Time of Date of : 05/01/21 Time of : 01:46 Contributing Factors (1) Need for comfort care: Contributing factors: Patient was placed on comfort care measures in the afternoon of 04/30/2021. Patient's family did come to visit patient had declined due to her Covid infection on top of pre-existing malnutrition from chronic small bowel obstruction. Discomfort illness at 0146 hrs. on 05/01. Patient's cause of is acute respiratory failure secondary to Covid pneumonia. This patient was pronounced by the resident service overnight. (2) Acute respiratory failure with hypoxemia: (3) Pleural effusion: (4) Cachexia: (5) Partial obstruction of small intestine: (6) SARS-CoV-2 positive: (7) Acute hypotension: (8) Hypoglycemia: (9) Elevated troponin: (10) DVT prophylaxis: Summary Additional details: Extensive hospital course for partial small bowel obstruction with pneumatosis intestinalis, complicated by COVID19 infection during hospitalization, worsening malnutrition leading to anasarca and enlarging pleural effusions worsening hypoxic distress. Patient made comfort measures only earlier in the day. Notified by nursing of patient's passing. Sister at bedside at time of exam confirmation. Additional Data Confirmation of : no pulse, no respirations and no heart sounds Family: at bedside Attending physician: Rip Earl MD Was code activated?: No Resident Activity Tracking Resident Involvement: Resident Care Provided Care Provided: Adult Hospital Medicine
--- NOTE | 2021-05-01 07:25 | Billing Data ---
Date of Service May 01, 2021 Coding Level of Care Code D/C DAY MANAGEMENT <30 MINS
--- NOTE | 2021-05-08 18:23 | Discharge Summary ---
Date of Service May 01, 2021 Admission HPI Per Admitting Provider Ashia Ca has a past medical history of PE, prior ex lap for SBO with lysis of adhesions with discharge on 02/18 presenting today with weakness, vomiting and shortness of breath. Over the last 3 days she has vomited every time she would eat anything, she was vomiting in the room when I saw her. her last bowel movement was yesterday. She has been able to drink some over the last 3 days but has become progressively weaker and was concerned that she might have an SBO as this feels similar to prior. She has had a significant amount of weight loss over the last year. She does not have any night sweats. One week ago she was walking up her steps on her porch and she fell. She rolled her ankle and did not loose consciousness and did not go to the ER after this. She lives alone at home, she has a walker and has people visit her most days to help with ADLs. She had worked with PT outpatient but has not noticed improvement. She notes that her right foot has been weak for months. ER course: IVF, CT a/p, Mg. NG placed Principal Diagnosis pt at 0146 on 05/01/21 Discharge Exam pt was pronounced by resident team at night Discharge Data Allergies Allergy/AdvReac Type Severity Reaction Status Date / Time latex Allergy Unknown Unknown Verified 04/07/21 20:49 [email or web address] AdvReac Unknown Unknown Verified 04/07/21 20:49 Consultations 04/07/21 21:20 ED Decision to Admit Stat 04/16/21 08:16 Consult Gastroenterology Routine 04/17/21 10:09 Consult General Surgery Routine 04/30/21 14:20 Consult Palliative Care Routine Ordered Studies 04/07/21 19:48 CT abd pelvis wo con Stat 04/08/21 05:52 CT head/brain wo con Routine 04/09/21 13:19 US venous doppler LE RT Urgent 04/27/21 13:08 CT abd pelvis IV con only Routine Hospital Course (1) Need for comfort care: Patient is significant decline today after discussion with sister patient will be transition to comfort care measures. All treatments and therapeutics are discontinued with exception of medications and treatments guided at patient comfort. Family is allowed to come to visit pt at 0146 on 05/01/21 from complications of chronic small bowel obstruction, in the setting of covid infection (2) Acute respiratory failure with hypoxemia: started subtly on 04/27 on 2L, progressed on 04/28/21 in evening into 04/29/21 with needing 6L mask due to pleural effusion but also profound weakness, profound malnutrition Dr. Erwin had a skip conversation with patient and her sister, she is dying from severe malnutrition, 3rd spacing of fluid, muscle wasting she does not want intubated, understands it would not solve her problems changed to DNI, DNR initiated comfort measures with morphine (3) Pleural effusion: large on the left, small on right now impacting her breathing cannot take off fluid with Lasix, albumin as there is little to no oncotic pressure could consider thoracentesis but patient is dying from malnutrition, procedure would not fix that (4) Cachexia: suspect it is due to recurrent bowel obstructions, inflammatory condition with bowels she was barely eating, albumin low at 1.2 despite full strength TPN that should meet her caloric needs Dr. Erwin previously discussed trying Coresafe with tube feeds and limiting TPN, but now with respiratory status worsening I do not think Coresafe is possible she is 3rd spacing fluid with anasarca, pleural effusions, lower extremity edema incredibly weak, can barely cough, confined to bed because she is so frail concerned that she will continue to get worse as TPN is not helping, she does not have an obstruction on imaging or anything inflammatory that can be fixed changed to DNR/DNI 04/29/21, will start comfort measures and discontinue TPN (5) Partial obstruction of small intestine: Ashia Ca is a 70 yo female with PMHx of prior SBO s/p ex lap for lysis of adhesions, PE on anticoagulation, mixed connective tissue disorder, and pneumatosis intestinalis who was admitted to [facility] on 04/07/21 with weakness and vomiting, found to have partial SBO on CT. Partial obstruction of small intestine, improved, then worsened Recent admission - had exploratory laparotomy on 01/29/21, with lysis of adhesion. Record review of outpatient gen surg visit 03/15/21 notes that pardeep silva was at risk for having additional bowel obstructions due to her extensive jejunal disease. States that "If admitted to the hospital again with similar symptoms would do everything possible apart from surgery including long-term TPN if necessary." Also states that patient "likely would not tolerate a bowel resection of her diseased bowel because of the extent of the disease and risk for short bowel syndrome." CT abdomen and pelvis 04/07/21: evidence of high- grade partial small bowel obstruction. Received Zosyn q8h from 04/08 to 04/10 for empiric coverage; discontinued Zosyn 04/10. Repeated KUB 04/15, showing continued small bowel obstruction. However bowel movements are occurring suggesting that the obstruction is improving. - Gastroenterology consulted: poor surgical candidate; pt has declined and is not transitioned to comfort care 04/30/21 Severe Protein Calorie Malnutrition - Nutrition consulted. TPN ongoing with supplemental diet, but not eating much the past 5 days, prior to that she had NG tube due to SBO really no significant nutrition for some time Scleroderma could be contributing to GI malabsorption - No acute needs TAB -- noted earlier during admission. Resolved with rehydration. (6) SARS-CoV-2 positive: COVID-19 -- in setting of dyspnea, cough - Clinically reporting dyspnea and cough beginning on 04/19 after the patient has been hospitalized since 09/05/2020 - Work-up as follows: - Patient is vaccinated against COVID-19 x 3 - Interval development of L-sided opacities throughout admission on CXR - Labs initially revealing of thrombocytopenia / leukopenia with lymphopenia -- Procal negative - COVID-19 RT-PCR test returned positive 04/21 (7) Acute hypotension: Initial thought was possible adrenal insufficiency in the setting of chronic prednisone therapy for scleroderma - Patient chronically on prednisone 10mg daily in setting of scleroderma -A.m. cortisol from 04/22 is appropriate (8) Elevated troponin: Elevated Troponin -- noted on admission - Peaked at 0.248 on 04/07, asymptomatic through that time - TTE without evidence of RMWAs - Likely secondary to demand ischemia Code Status: DNR/DNI, changed on 04/29/21 anticipate the pt dying in the next few days Total Time Total Time Spent Total Time Spent (In Minutes): less than 30 minutes Discharge Plan Discharge Items Patient Disposition: Other Date/Time: 05/01/21 01:46 Coding Level of Care Code None Diagnoses Need for comfort care Acute respiratory failure with hypoxemia J96.01 Pleural effusion J90 Cachexia R64 Partial obstruction of small intestine K56.600 SARS-CoV-2 positive U07.1 Acute hypotension I95.9 Elevated troponin R77.8
== END 2021-05-01 03:27 | disposition expired | DRG 388 ==
LOC: ED 19:33 → SUATTDRO 22:56 → EDINP 22:56 → 1E 04-08 07:00 → 3N 04-12 10:43 → 1E 04-15 18:44 → 2S 04-18 22:26 → 2W 04-21 15:17